=== PATIENT | male | born 1940 | race Caucasian/White ===

== ENCOUNTER 2020-07-18 09:58 | Outpatient (RCR) | payer MEDICARE, SELFPAY | END 2020-10-09 15:03 | disposition home or self-care (01) | LOC: HO.WCC 09:58 | PROVIDERS: PCP Family Medicine; Visit Provider Surgery | DX: S81.811A Laceration without foreign body, right lower leg, initial encounter (principal); E11.51 Type 2 diabetes mellitus with diabetic peripheral angiopathy without gangrene; I70.209 Unspecified atherosclerosis of native arteries of extremities, unspecified extremity; I25.810 Atherosclerosis of coronary artery bypass graft(s) without angina pectoris; I71.2 Thoracic aortic aneurysm, without rupture; Z79.82 Long term (current) use of aspirin; Z79.899 Other long term (current) drug therapy | CPT/HCPCS: 11042; 17250; 99212 ==

== ENCOUNTER 2020-07-18 11:02 | Outpatient (REF) | payer MEDICARE, SELFPAY ==
--- NOTE | 2020-07-18 12:43 | MHC.AU.P13 ---
Hearing Aid Evaluation- Binaural Date of Visit: 07/18/20 Description of Hearing: Moderate to severe sensorineural hearing loss in the right ear. Moderately-severe to profound sensorineural hearing loss in the left ear. Summary: Patient was recently seen by Ear, Nose, and Throat. The white object that was discovered in his left ear at his last audio was removed. Hearing aid options discussed. Impressions taken bilaterally for custom Slim Tips. Slight irritation noted in left canal after impression. Hearing Instrument Selection: Right Ear: V Belt Curer: [employer] Model: Audax Medicaleo M70-R Battery Size: Rechargeable Color: P1 Media Buyer: 1M Type of Mold: Phonak SlimTip Left Ear: V Belt Curer: Phonak Model: Audeo M70-R Battery Size: Rechargeable Color: P1 Media Buyer: 1M Type of Mold: Phonak SlimTip Recommendations: Recommendations: Fitting will be scheduled when all materials have arrived. Prior authorization will be sent to patient's insurance. Diagnosis Code(s): Primary Diagnosis: H90.3 Bilateral Sensorineural Hearing Loss Services Performed: Hearing Aid Evaluation and Earmold: Hearing Aid Evaluation- Binaural Signature: Student/Clinical Fellow: No I have reviewed/agreed with student/fellow documentation: N/A Provider: Jin Hall CCC-A
--- NOTE | 2020-07-23 09:11 | MHC.AU.MED ---
Medical Clearance for Hearing Instrumentation Date: 07/23/20 Patient Name: Bi Hall Date of : 1940 Dear Adriane Higuera MD, We have seen your patient on 07/18/2020 and have determined that they are a candidate for amplification (See accompanying report). Specifically, they would benefit from: Hearing aid use in both ears There is a statute that addresses Medical Evaluation Requirements prior to fitting a patient with a hearing aid. According to [place] statute 265 CMR:6.03(1), (a) General. Except as provided in 265 CMR 6.03(1)(b), a hearing therapy teacher shall not sell a hearing aid unless the prospective user has presented to the hearing therapy teacher a written statement signed by a licensed physician that states that the patient's hearing loss has been medically evaluated and the patient may be considered a candidate for a hearing aid. The medical evaluation must have taken place within the preceding six months. Please note: Due to the [place] Statute referenced above, we cannot accept a signature other than that of a licensed physician. CHARGEBACK SPECIALIST and PA signatures cannot be accepted. I am in agreement with the above recommendation. There is no medical contraindication for hearing instrumentation. Physician Signature Date Physician Name (Printed)
== END 2020-07-18 11:03 | disposition home or self-care (01) ==
LOC: HO.HAP 11:02
PROVIDERS: PCP Family Medicine; Visit Provider Family Medicine
DX: Z46.1 Encounter for fitting and adjustment of hearing aid (principal)
CPT/HCPCS: 92591; V5275

== ENCOUNTER → 2020-08-15 10:00 | Outpatient (BNVA) | payer MEDICARE, SELFPAY | PROVIDERS: PCP Nurse Practitioner Family; Referring Provider Nurse Practitioner Family; Visit Provider Internal Medicine Gastroenterology | DX: R13.10 Dysphagia, unspecified (principal); I21.9 Acute myocardial infarction, unspecified; Z95.1 Presence of aortocoronary bypass graft; Z95.2 Presence of prosthetic heart valve | CPT/HCPCS: 99202 ==

== ENCOUNTER 2020-08-28 08:12 | Outpatient (REF) | payer MEDICARE, SELFPAY ==
--- NOTE | 2020-08-28 08:18 | FL_ITS ---
EXAMINATION: FL BARIUM SWALLOW CLINICAL INFORMATION: Dysphagia COMPARISON: None TECHNIQUE: Barium swallow examination is performed using fluoroscopic evaluation in addition to multiple fluoroscopic spot views. The patient is imaged both upright and prone and using both thick and thin sulfate along with effervescent granules. A 13 mm barium tablet utilized. Fluoroscopy time: 1.8 minutes DAP: 34.078 Gycm2 Images: 121 FINDINGS: There is normal oral bolus control and transfer. Normal posterior tilt of the epiglottis with elevation of the hyoid. No cricopharyngeal abnormality. The esophagus was normal in course, caliber, and contour. Questionable mild narrowing at the gastroesophageal junction resulting in delayed passage of the barium tablet. There was otherwise normal distensibility with no fixed segment of narrowing. No focal mucosal abnormality was identified. A 13 mm barium tablet was swallowed without difficulty. This took a normal course to the distal esophagus, with delayed passage at the gastroesophageal junction throughout the study. Moderate esophageal dysmotility was observed. Contrast passed freely across the gastroesophageal junction into the stomach. Small hiatal hernia. No gastroesophageal reflux was observed. FL/FL barium swallow IMPRESSION: Moderate esophageal dysmotility with small hiatal hernia. Delayed passage of the 13 mm barium tablet at the gastroesophageal junction suggests there may be mild focal narrowing.
== END 2020-08-28 08:13 | disposition home or self-care (01) ==
LOC: HO.XRAY 08:12
PROVIDERS: PCP Family Medicine; Visit Provider Internal Medicine Gastroenterology
DX: R13.10 Dysphagia, unspecified (principal)
CPT/HCPCS: 74220

== ENCOUNTER 2020-09-03 14:20 | Outpatient (REF) | payer MEDICARE, SELFPAY ==
--- NOTE | 2020-09-08 11:33 | MHC.AU.P13 ---
Hearing Instrument Fitting- Adult- Binaural Date of Visit: 09/03/20 Hearing Instruments Dispensed: Right Ear: Kitchen Work Supervisor: Phonak Model: Audeo M70-R Serial Number: [id number] Warranty: 11/15/2023 Battery Size: Rechargeable Color: P1 Physical Education Specialist: 1M Type of Mold: Phonak SlimTip #[id number] DEEPIKA EXP 12/17/2020 Type of Wax Guard: CERUSTOP Left Ear: Kitchen Work Supervisor: Phonak Model: Audeo M70-R Serial Number: [id number] Warranty: 11/15/2023 Battery Size: Rechargeable Color: P1 Physical Education Specialist: 1M Type of Mold: Phonak SlimTip #[id number] Type of Wax Guard: CERUSTOP Summary of Fitting: Feedback applications engineering manager was performed. Verifit performed and levels adjusted to better reach targets. Patient felt 100% was too loud. Lowered to 90% target. Patient was pleased with the hearing aids. He reported they were comfortable and clear. Hearing aid care and maintenance discussed and practiced. Hearing aids were not paired to the patient's phone, as his caregiver felt it would be too much for him to handle at this time. Recommendations: A hearing aid follow-up was not scheduled at this time, as patient's caregiver would like to minimize his visits outside the house due to the COVID-19 pandemic. If they feel additional adjustments are needed, or if they have any questions, they will call our office. Diagnosis Code(s): Primary Diagnosis: H90.3 Bilateral Sensorineural Hearing Loss Signature: Provider: Jin Hall, JULIUS-A
== END 2020-09-03 14:21 | disposition home or self-care (01) ==
LOC: HO.HAP 14:20
PROVIDERS: PCP Nurse Practitioner Family; Referring Provider Family Medicine; Visit Provider Nurse Practitioner Family
DX: Z46.1 Encounter for fitting and adjustment of hearing aid (principal); H90.3 Sensorineural hearing loss, bilateral
CPT/HCPCS: V5011; V5020; V5160; V5261; V5264

== ENCOUNTER 2021-01-01 11:15 | Outpatient (REF) | payer MEDICARE, SELFPAY ==
[2021-01-01 12:23] LABS: MANUAL DIFF FLAG NO
[2021-01-01 12:34] LABS: Basophils Percent Auto 0.3 % (0-2); Eosinophils Absolute Auto 0.3 X10*3/uL (0.0-0.4); Eosinophils Percent Auto 4.4 % (0-4); Hematocrit 27.2 % (42-52); Hemoglobin 7.9 g/dl (14.0-18.0); Imm Gran Abs Auto 0.03 X10*3/uL (0.00-0.03); Imm Gran Pct Auto 0.5 % (0.0-0.4); Lymphocytes Absolute Auto 2.1 X10*3/uL (1.2-4.9); Lymphocytes Percent Auto 34.9 % (20-40); Mean Corpuscular Hemoglobin 28.2 pg (27.0-33.0); Mean Corpuscular Volume 97.1 fL (80-98); Monocytes Absolute Auto 0.4 X10*3/uL (0.1-1.2); Monocytes Percent Auto 6.3 % (2-11); Neutrophils Absolute Auto 3.2 X10*3/uL (2.0-8.3); Neutrophils Percent Auto 53.6 % (45-73); Platelet Count 102 X10*3/uL (160-400); Red Cell Distribution Width 16.2 % (11.0-16.0); White Blood Count 5.9 X10*3/uL (4.8-10.8)
[2021-01-01 12:59] LABS: Iron 64 mcg/dL (45-160); Percent Iron Saturation 34 % (15-50); Total Iron Binding Capacity 186 mcg/dL (228-428); Unsaturated Iron Binding 122 ug/dL
[2021-01-01 14:09] LABS: Anion Gap 17 (12-20); Blood Urea Nitrogen 76 mg/dL (9-16); Calcium 7.2 mg/dL (8.4-10.2); Carbon Dioxide 17 mmol/L (22-29); Chloride 120 mmol/L (96-108); Estimated Glomerular Filt Rate 10; Potassium 5.6 mmol/L (3.3-5.1); Sodium 148 mmol/L (135-145)
== END 2021-01-01 11:16 | disposition home or self-care (01) ==
LOC: HO.LAB 11:15
PROVIDERS: PCP Family Medicine; Visit Provider Internal Medicine Hypertension Specialist
DX: N18.5 Chronic kidney disease, stage 5 (principal)
CPT/HCPCS: 36415; 80051; 82310; 82565; 83540; 84520; 85025

== ENCOUNTER 2021-01-05 07:32 | Day surgery (SDC) | payer MEDICARE, SELFPAY ==
[2020-12-30 13:17] VITALS: BMI 35.2
--- NOTE | 2020-12-31 13:37 | HO.ANESPROP2 ---
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 per renal note PMFSH Active Problems Active Problems: All Active Problems (Updated 12/30/20 @ 13:22 by Blossom Ramírez) Dysphagia (Acute) Past Medical History Medical History (Updated 12/31/20 @ 13:42 by Kerri Fuller) COPD (chronic obstructive pulmonary disease) COVID-19 vaccine administered Elevated cholesterol GERD (gastroesophageal reflux disease) Heart attack HTN (hypertension) Prostate CA PVD (peripheral vascular disease) Renal failure Thyroid disease Surgical History Surgical History (Updated 12/30/20 @ 12:47 by Blossom Ramírez) H/O colonoscopy History of incision and drainage Hx of aortic valve replacement Hx of CABG Hx of cataract surgery Hx of cystoscopy Social History Social History Are you a primary adult live in caregiver to a significant other at home: No Do you presently have visiting nurse or other home services: No Smoking Status: Former smoker Smoking Quit Date: 2000 Use of substances other than those prescribed or required for medical reasons: No Have you been hit, kicked, punched, or otherwise hurt by someone within the past year? If so, by whom?: No Advance Directives Information Provided: No Recently lost weight without trying: No Meds Allergies Allergy/AdvReac Type Severity Reaction Status Date / Time No Known Allergies Allergy Mild NONE Unverified 06/26/20 16:39 Home Medications Medication Instructions Recorded Confirmed Last Taken Type allopurinol 100 mg PO DAILY 12/30/20 12/30/20 Unknown History amlodipine 2.5 mg PO DAILY 12/30/20 12/30/20 01/05/21 History aspirin 81 mg PO DAILY 12/30/20 12/30/20 Unknown History atorvastatin 80 mg PO DAILY 12/30/20 12/30/20 Unknown History cholecalciferol (vitamin D3) 25 mcg PO DAILY 12/30/20 12/30/20 Unknown History [Vitamin D3] clonidine HCl 0.2 mg PO BEDTIME 12/30/20 12/30/20 Unknown History cyanocobalamin (vitamin B-12) 100 mcg PO DAILY 12/30/20 12/30/20 Unknown History [Vitamin B-12] levothyroxine 50 mcg PO DAILY 12/30/20 12/30/20 01/05/21 History loratadine [Claritin] 10 mg PO DAILY PRN 12/30/20 12/30/20 Unknown History metoprolol succinate 100 mg PO BID 12/30/20 12/30/20 01/05/21 History omeprazole 20 mg PO DAILY 12/30/20 12/30/20 Unknown History Exam Exam Date and Time: December 31, 2020 1337 Height,Weight and Vital Signs: Height 5 ft 9 in Weight 108.409 kg Pertinent Lab Results Pertinent Lab Results: 12/10/20 Na 144 K 5.2 Cl 112 (H) CO2 24 BUN 84 (H) Creat 5.3 (H) WBC 7.3 Hgb 9.4 (L) Hct 29.1 (L) 141 Narrative Narrative: EKG 12/2019 NSR @ [address] abn ECHO 07/2020 1. Nml LV function 2. LV systolic function normal with EF 60-65% 3. Gr 1 DD with an impaired relaxation filling pattern. Normal LA pressures. 4. Normally functioning aortic bioprosthetic tissue valve. 5. Mild Tricuspid regurg 6. Mild to mod pulm htn 7. Compared with findings of the prior report (04/2019), pulm htn increased. Assessment and Plan Assessment Anesthesia Assessment: Chart Reviewed Documented by User: Rachele Anti 01/05/21 08:51 [facility] Past Medical History Medical History (Updated 12/31/20 @ 13:42 by Kerri Fuller) COPD (chronic obstructive pulmonary disease) COVID-19 vaccine administered Elevated cholesterol GERD (gastroesophageal reflux disease) Heart attack HTN (hypertension) Prostate CA PVD (peripheral vascular disease) Renal failure Thyroid disease Surgical History Surgical History (Updated 12/30/20 @ 12:47 by Blossom Ramírez) H/O colonoscopy History of incision and drainage Hx of aortic valve replacement Hx of CABG Hx of cataract surgery Hx of cystoscopy Social History Social History Are you a primary adult live in caregiver to a significant other at home: No Do you presently have visiting nurse or other home services: No Smoking Status: Former smoker Smoking Quit Date: 2000 Use of substances other than those prescribed or required for medical reasons: No Have you been hit, kicked, punched, or otherwise hurt by someone within the past year? If so, by whom?: No Advance Directives Information Provided: No Recently lost weight without trying: No Meds Allergies Allergy/AdvReac Type Severity Reaction Status Date / Time No Known Allergies Allergy Mild NONE Unverified 06/26/20 16:39 Home Medications Medication Instructions Recorded Confirmed Last Taken Type allopurinol 100 mg PO DAILY 12/30/20 12/30/20 Unknown History amlodipine 2.5 mg PO DAILY 12/30/20 12/30/20 01/05/21 History aspirin 81 mg PO DAILY 12/30/20 12/30/20 Unknown History atorvastatin 80 mg PO DAILY 12/30/20 12/30/20 Unknown History cholecalciferol (vitamin D3) 25 mcg PO DAILY 12/30/20 12/30/20 Unknown History [Vitamin D3] clonidine HCl 0.2 mg PO BEDTIME 12/30/20 12/30/20 Unknown History cyanocobalamin (vitamin B-12) 100 mcg PO DAILY 12/30/20 12/30/20 Unknown History [Vitamin B-12] levothyroxine 50 mcg PO DAILY 12/30/20 12/30/20 01/05/21 History loratadine [Claritin] 10 mg PO DAILY PRN 12/30/20 12/30/20 Unknown History metoprolol succinate 100 mg PO BID 12/30/20 12/30/20 01/05/21 History omeprazole 20 mg PO DAILY 12/30/20 12/30/20 Unknown History Exam Airway Mallampati Class: II TM Dist: >3cm Neck ROM: Limited Denture: Upper and Lower Loose/Missing/Broken Teeth: Yes, Upper and Lower Heart: RRR Lungs: CTA Assessment and Plan Assessment Anesthesia Assessment: Anesthesia Plan Discussed and Chart Reviewed Final Anesthetic Review NPO: Yes ASA Class: III Final Preanesthetic Review: Meds/Allgs Chart Reviewed, Consent Obtained/Reviewed and Anes Risks/Benef Reviewed Patient Risk: Intermediate Procedure Risk: Intermediate Anesthetic Plan Anesthetic Plan: MAC: Disposition: Standard PACU
[2021-01-05 08:35] VITALS: BP 188/101; PULSE 67; RESP 18; TEMP 36.4; O2SAT 97
--- NOTE | 2021-01-05 08:41 | PC.NURSE ---
pt old cva 1999with left sided weakness uses walker sob with exertion
--- NOTE | 2021-01-05 08:53 | MHC.SHP ---
Pre-Procedural Eval Section B Chief Complaint: dysphagia Relevant Family History (Specify if Yes): No Relevant Social History: None Present Medications: see Short Stay Collaborative assessment Medical History: Significant History (COPD (chronic obstructive pulmonary disease) COVID-19 vaccine administered Elevated cholesterol GERD (gastroesophageal reflux disease) Heart attack HTN (hypertension) Prostate CA PVD (peripheral vascular disease) Renal failure Thyroid disease) History of Previous Operations: Relevant previous surgery/procedure and date(s) (H/O colonoscopy History of incision and drainage Hx of aortic valve replacement Hx of CABG Hx of cataract surgery Hx of cystoscopy) Allergies: Allergies Allergy/AdvReac Type Severity Reaction Status Date / Time No Known Allergies Allergy Mild NONE Unverified 06/26/20 16:39 Review of Systems Sugical H&P ROS: Negative: Constitution, Cardiovascular, Respiratory, Neurological, Psychiatric, Hem-Onc, Allergic/Immunologic, Gastrointestinal, Genitourinary, Musculoskeletal, Integumentary, Endocrine and Eyes/Ears/Nose/Throat Exam Surgical H&P Exam: Normal: HEENT, Normal: Heart, Normal: Lungs, Normal: Extremities, Normal: Abdomen, Normal: Skin and Normal: Neurological Plan Diagnosis/Plan: Unchanged I have reviewed the history and physical and performed a pertinent physical examination on my patient. No changes have occurred unless specified.
[2021-01-05] MEDS: 0.9 % Sodium Chloride 1,000 ML 50 ML IVCONT (09:03)
--- NOTE | 2021-01-05 09:07 | PM.OP ---
Brief Operative Note Date of Service: 01/05/21 Pre-op diagnosis: dysphagia Post-op diagnosis: same Procedure: see op note Surgeon: Manuel Tafoya MD Anesthesia: MAC Estimated blood loss (mL): 0 Condition: stable Disposition: PACU
--- NOTE | 2021-01-05 09:08 | W.PM.OPN ---
Operative Note Operative Note Date of Service: 01/05/21 Narrative: Procedure Description: EGD FLEXIBLE TRANSORAL UPPER GASTROINTESTINAL ENDOSCOPY UPPER ENDOSCOPY Consent: Indications for the procedure and potential complications of bleeding, perforation, reaction to medications and missed diagnosis were discussed with the patient and informed consent was obtained. Instrument: Olympus GIF H 190 J mid size upper endoscope Monitoring: Vital signs and clinical assessment, continuous EKG monitoring, Pulse oximetry, Carbon Dioxide monitoring and blood pressure monitoring were done throughout the procedure. Procedure: The patient was placed in the left lateral decubitis position and pre-procedure medications were administered and a bite block was placed. The endoscope was inserted into the mouth and advanced under direct vision to the third part of duodenum. A careful inspection was made as the upper endoscope was withdrawn including a retroflexed examination of the proximal stomach; Findings and interventions are described below. Findings: Larynx:normal Esophagus: GE junction at 40 cm, diaphragm hiatus at 40 cm, bx taken from GEj and random esophagus, balloon dilation done to 20 mm at GEJ no tear seen, also UES dilated to 18 mm. Stomach: one patch of gastric erythema with some dark material probable pill gastritis from iron. Biopsies were obtained. Grade 2 flap valve on retroflexed examination of the cardia. There appeared to be paucity of gastric movement. Duodenum: bulbar duodenitis, pigmentation noted again likely from iron treatment if taking Intervention: Biopsies as noted above, balloon dilation Impression/Findings: pill gastritis duodenitis melanosis duodeni possible gastroparesis PLAN: regular diet as tolerated consider changing to liquid iron or IV formulation or using carafate if ongoign sx then GES to check for gastroparesis
[2021-01-05 09:29] VITALS: BP 119/54; PULSE 59; RESP 16; TEMP 36.2; O2SAT 93
[2021-01-05 09:44] VITALS: BP 120/66; PULSE 61; RESP 20; O2SAT 99
[2021-01-05 09:59] VITALS: BP 113/71; PULSE 57; RESP 16; O2SAT 94
[2021-01-05 10:14] VITALS: BP 130/56; PULSE 53; RESP 18; O2SAT 97
[2021-01-05 10:27] VITALS: BP 137/82; PULSE 60; RESP 18; O2SAT 97
== END 2021-01-05 11:10 | disposition home or self-care (01) ==
PROVIDERS: PCP Family Medicine; Visit Provider Internal Medicine Gastroenterology
PROC: 0DJ08ZZ Inspection of Upper Intestinal Tract, Via Natural or Artificial Opening Endoscopic (ICD-10-PCS; CPT 43235; principal; 2021-01-05 13:30)
DX: K22.2 Esophageal obstruction (principal); K29.80 Duodenitis without bleeding; K29.60 Other gastritis without bleeding; K44.9 Diaphragmatic hernia without obstruction or gangrene; K63.89 Other specified diseases of intestine; K21.9 Gastro-esophageal reflux disease without esophagitis; J44.9 Chronic obstructive pulmonary disease, unspecified; I13.10 Hypertensive heart and chronic kidney disease without heart failure, with stage 1 through stage 4 chronic kidney disease, or unspecified chronic kidney disease; N18.9 Chronic kidney disease, unspecified; I25.2 Old myocardial infarction; Z95.2 Presence of prosthetic heart valve; Z79.899 Other long term (current) drug therapy
CPT/HCPCS: 43249; 43239; 88305; 88342; C1726

== ENCOUNTER 2021-01-12 16:55 | Inpatient (IN) | payer MEDICARE, SELFPAY ==
--- NOTE | ~2021-01-12 | IR_ITS ---
EXAMINATION: X-ray IR ultrasound guide venous access See permacath report from the same day.
--- NOTE | ~2021-01-12 | XR_ITS ---
EXAMINATION: XR CHEST CLINICAL INFORMATION: Altered mental status COMPARISON: Chest x-ray 12/22/2019 TECHNIQUE: Frontal view of the chest was obtained. FINDINGS: Cardiac silhouette remains at the upper limits of normal in size. Ectatic thoracic aorta again noted. Patient is status post valvular replacement. The lungs are mildly hyperinflated. No lobar consolidation. No pleural effusion or pneumothorax. Old healed rib fractures. XR/XR chest 1V IMPRESSION: Stable examination demonstrating no acute pulmonary pathology.
--- NOTE | ~2021-01-12 | IR_ITS ---
PROCEDURE: IR INSERTION OF TUNNEL CATHETER CLINICAL INFORMATION: Renal failure. COMPARISON: None TECHNIQUE: Procedure and risks and benefits including bleeding, infection and pneumothorax were discussed with the patient through an court usher and informed consent was obtained. The right neck and chest were prepped and draped in usual sterile fashion. All elements of maximal sterile barrier technique followed including use of cap, mask, sterile gown, sterile gloves, a sterile full body drape and hand hygiene. Also followed skin preparation with 2% chlorhexidine for cutaneous antisepsis, and sterile ultrasound preparation with sterile gel and probe cover when applicable. The skin and soft tissues of the right lower neck were anesthetized with 1% lidocaine plain. A small incision was made. Using ultrasound guidance and a 5 Peruvian micropuncture system, right internal jugular vein access was obtained. Over a 0.18 wire, a 5 [place]uvian dilator was positioned in the SVC. The skin and soft tissues of the right anterior chest were anesthetized with 1% lidocaine plain. A small incision was made. A subcutaneous tunnel from the chest to the neck incision was anesthetized with 1% lidocaine plain. Using a tunneler, a 14.5 [place]uvian 23 cm in length Palindrome permacath was tunneled from the chest to the neck incision. A 0.35 guidewire was advanced through the 5 Peruvian dilator into the IVC. Following serial dilatation and through a peel-away sheath, permacath was advanced centrally into the chest. The next incision was closed using a 3-0 absorbable subcuticular suture. The chest incision was closed using a 3-0 absorbable mattress suture. Both ports flushed well, had good blood return and were instilled with 1.9 mL heparin 1000 unit per mL solution. Real-time ultrasound guidance was used to document vein patency and for needle entry. A formal ultrasound picture was recorded. The patient received Versed 0.5 mg and fentanyl 25 mcg intravenously during the procedure. Total sedation time: 18 minutes. Fluoroscopy time: 29 seconds. DAP: 82 cGy/cm2 FINDINGS: There is a right internal jugular permacath with tip projecting over the cavoatrial junction. IR/IR cvc insert central tunnel IMPRESSION: Right internal jugular 14.5 Peruvian 23 cm in length Palindrome permacath placement.
[2021-01-12 17:13] VITALS: BP 140/92; PULSE 60; O2SAT 98
[2021-01-12 17:30] VITALS: BMI 31.4
--- NOTE | 2021-01-12 17:36 | ED.AMS ---
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, but patient has been refusing to go for dialysis MD complaint: confusion Onset (ago): week(s) Severity: moderate Related Data Home Medications Medication Instructions Recorded Confirmed allopurinol 100 mg PO DAILY 12/30/20 12/30/20 amlodipine 2.5 mg PO DAILY 12/30/20 12/30/20 aspirin 81 mg PO DAILY 12/30/20 12/30/20 atorvastatin 80 mg PO DAILY 12/30/20 12/30/20 cholecalciferol (vitamin D3) 25 mcg PO DAILY 12/30/20 12/30/20 [Vitamin D3] clonidine HCl 0.2 mg PO BEDTIME 12/30/20 12/30/20 cyanocobalamin (vitamin B-12) 100 mcg PO DAILY 12/30/20 12/30/20 [Vitamin B-12] levothyroxine 50 mcg PO DAILY 12/30/20 12/30/20 loratadine [Claritin] 10 mg PO DAILY PRN 12/30/20 12/30/20 metoprolol succinate 100 mg PO BID 12/30/20 12/30/20 omeprazole 20 mg PO DAILY 12/30/20 12/30/20 Allergies Allergy/AdvReac Type Severity Reaction Status Date / Time No Known Allergies Allergy Mild NONE Unverified 06/26/20 16:39 Review of Systems Review of Systems: Constitutional : No Weight loss, No Fever, No Chills ENT/Mouth : No sore throat, No Rhinorrhea Eyes: No Eye Pain, No Swelling Cardiovascular : No Chest Pain, no palpitations Respiratory : No Cough, No Sputum, ++ shortness of breath Gastrointestinal : no Nausea, No Vomiting, No Diarrhea, No abdominal Pain, no black stools Genitourinary : No Dysuria, No Urinary Frequency Musculoskeletal : No joint pain, No Myalgias, No Joint Swelling Skin : No Skin Lesions, No rash Neuro : No Weakness, No Numbness, No Dizziness, No Headache Psych : No Anxiety/Panic, No Depression Heme/Lymph: No Bruising, No Lymphadenopathy Endocrine : No Polyuria, No Polydipsia All other systems reviewed and are negative [facility] Past Medical History Medical History COPD (chronic obstructive pulmonary disease) COVID-19 vaccine administered Elevated cholesterol GERD (gastroesophageal reflux disease) Heart attack HTN (hypertension) Prostate CA PVD (peripheral vascular disease) Renal failure Thyroid disease Surgical History H/O colonoscopy History of incision and drainage Hx of aortic valve replacement Hx of CABG Hx of cataract surgery Hx of cystoscopy Social History Social History Alcohol intake: never Smoking Status: Never smoker Use of substances other than those prescribed or required for medical reasons: No Advance Directives: No Advance Directives Information Provided: Yes Physical Exam Vital Signs: Vital Signs: Last Vital Signs Temp 98.2 F 01/12/21 20:02 Pulse 60 01/12/21 20:02 Resp 18 01/12/21 20:02 BP 143/73 H 01/12/21 20:02 Pulse Ox 94 01/12/21 20:02 Body Mass Index 31.4 Const: General: no acute distress and well developed Nutritional Appearance: obese Orientation/consciousness: patient oriented x3 HENMT: Head: Yes normal to inspection Ears: hearing grossly normal bilaterally General nose exam: Normal external nose present Mouth: Normal oral and palatal mucosa present Eyes: General: appearance normal, both eyes and all related structures Conjunctivae: conjunctival abnormal (Pallor++) Neck: Neck: Yes normal visual inspection and Yes no JVD Chest: Chest palpation & inspection: normal inspection of the chest Resp: Effort & Inspection: normal respiratory effort Auscultation: crackles bilateral, rales, no rhonchi and no wheezes Cardio: Jugular venous distension: no JVD Palpation: normal PMI Rate: regular rate Rhythm: regular rhythm Heart sounds: S1 normal heart sound present, S2 normal heart sound present and Clicking heart sound present Peripheral pulses: Peripheral pulses 2+ throughout GI: Inspection: Yes normal to inspection Palpation (GI): Soft to palpation and nontender Auscultation: normal bowel sounds : General: Yes no CVA tenderness Back/Spine/Pelvis: Back: no CVA tenderness Thoracic/Lumbar Spine: thoracic and lumbar spine normal to inspection Skin: General skin exam: no rashes or lesions noted Neuro: General: patient oriented x3, gait normal, moves all extremities, no focal motor deficits and CN's II-XI intact bilaterally Extrem: General: Yes full ROM, Yes no calf tenderness, Yes normal gait and Yes pedal edema (4+) Psych: Appearance: grossly normal Mental Status: mental status grossly normal Affect: normal affect Attitude: cooperative Thought process: Normal thought process present Thought content: Normal thought content present Insight: Good insight present (Psych) Judgement: Good judgement present (Psych) MDM - Altered Mental Status MDM Narrative Medical decision making narrative: Patient with chronic renal failure stage 5 with uremic features with increasing confusion and worsening of creatinine and elevated potassium 6.6 creatinine of 6.[address] 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 Will also give her p.o. Kayexalate, IV calcium gluconate, IV sodium bicarb and IV insulin with dextrose Differential Diagnosis Differential diagnosis: Likely encephalopathy Medical Records Attestation: I reviewed the patient's medical records. Lab Data Attestation: I reviewed the patient's lab results. Result diagrams: 01/12/21 18:52 01/12/21 18:52 Labs: Lab Results 01/12/21 01/12/21 01/12/21 Range/Units 18:52 18:52 18:52 WBC 5.7 (4.8-10.8) X10*3/uL RBC 2.85 L (4.60-5.80) X10*6/uL Hgb 8.2 L (14.0-18.0) g/dl Hct 28.2 L (42-52) % MCV 98.9 H (80-98) fL MCH 28.8 (27.0-33.0) pg MCHC 29.1 L (31.0-36.0) g/dl RDW 16.7 H (11.0-16.0) % Plt Count 86 L (160-400) X10*3/uL MPV Not Reportable Immature Gran % (Auto) 0.5 H (0.0-0.4) % Neut % (Auto) 55.1 (45-73) % Lymph % (Auto) 32.3 (20-40) % Douglas % (Auto) 8.3 (2-11) % Eos % (Auto) 3.3 (0-4) % Baso % (Auto) 0.5 (0-2) % Lymph # (Auto) 1.8 (1.2-4.9) X10*3/uL [place] # (Auto) 0.5 (0.1-1.2) X10*3/uL Eos # (Auto) 0.2 (0.0-0.4) X10*3/uL Baso # (Auto) 0.0 (0.0-0.2) X10*3/uL Abs Immat Gran (auto) 0.03 (0.00-0.03) X10*3/uL Absolute Neuts (auto) 3.1 (2.0-8.3) X10*3/uL Absolute Nucleated RBC 0.000 (0.0-0.012) X10*3/uL Nucleated RBC % (auto) 0.0 (0.0-0.2) /100WBC Smear Tech's Comments VERIFIED PT 15.8 H (10.8-13.0) SEC INR 1.3 H (0.9-1.1) APTT 35.5 (24.1-38.0) SEC Sodium 145 (135-145) mmol/L Potassium 6.6 H* (3.3-5.1) mmol/L Chloride 117 H (96-108) mmol/L Carbon Dioxide 21 L (22-29) mmol/L Anion Gap 14 (12-20) BUN 107 H* D (9-16) mg/dL Creatinine 6.60 H* (0.5-1.4) mg/dL Estim Creat Clear Calc 10.0 Estimated GFR 8 Random Glucose 117 H (60-115) mg/dL Calcium 7.3 L (8.4-10.2) mg/dL Total Bilirubin 0.5 (0.0-1.0) mg/dL Direct Bilirubin 0.2 (0.0-0.5) mg/dL AST 14 (5-37) U/L ALT 18 (0-40) U/L Alkaline Phosphatase 144 H (39-117) U/L Total Protein 6.7 (6.5-8.0) g/dL Albumin 3.7 (3.5-5.0) g/dL Urine Color Urine Appearance Urine pH (5.0-8.0) Ur Specific Baker (1.005-1.025) Urine Protein (NEG-TRACE) MG/DL Urine Glucose (UA) (NEG) MG/DL Urine Ketones (NEG) MG/DL Urine Blood (NEG) Urine Nitrite (NEG) Ur Leukocyte Esterase (NEG) Urine RBC (0) /HPF Urine WBC (0-4) /HPF Ur Squamous Epith Cells /LPF Urine Bacteria /LPF Urine Mucus /LPF COVID-19 ([facility]) (Negative) COVID-19 Clin Com 01/12/21 01/12/21 Range/Units 18:52 20:59 WBC (4.8-10.8) X10*3/uL RBC (4.60-5.80) X10*6/uL Hgb (14.0-18.0) g/dl Hct (42-52) % MCV (80-98) fL MCH (27.0-33.0) pg MCHC (31.0-36.0) g/dl RDW (11.0-16.0) % Plt Count (160-400) X10*3/uL MPV Immature Gran % (Auto) (0.0-0.4) % Neut % (Auto) (45-73) % Lymph % (Auto) (20-40) % [place] % (Auto) (2-11) % Eos % (Auto) (0-4) % Baso % (Auto) (0-2) % Lymph # (Auto) (1.2-4.9) X10*3/uL [place] # (Auto) (0.1-1.2) X10*3/uL Eos # (Auto) (0.0-0.4) X10*3/uL Baso # (Auto) (0.0-0.2) X10*3/uL Abs Immat Gran (auto) (0.00-0.03) X10*3/uL Absolute Neuts (auto) (2.0-8.3) X10*3/uL Absolute Nucleated RBC (0.0-0.012) X10*3/uL Nucleated RBC % (auto) (0.0-0.2) /100WBC Smear Tech's Comments PT (10.8-13.0) SEC INR (0.9-1.1) APTT (24.1-38.0) SEC Sodium (135-145) mmol/L Potassium (3.3-5.1) mmol/L Chloride (96-108) mmol/L Carbon Dioxide (22-29) mmol/L Anion Gap (12-20) BUN (9-16) mg/dL Creatinine (0.5-1.4) mg/dL Estim Creat Clear Calc Estimated GFR Random Glucose (60-115) mg/dL Calcium (8.4-10.2) mg/dL Total Bilirubin (0.0-1.0) mg/dL Direct Bilirubin (0.0-0.5) mg/dL AST (5-37) U/L ALT (0-40) U/L Alkaline Phosphatase (39-117) U/L Total Protein (6.5-8.0) g/dL Albumin (3.5-5.0) g/dL Urine Color YELLOW Urine Appearance CLEAR Urine pH 5.0 (5.0-8.0) Ur Specific Baker 1.020 (1.005-1.025) Urine Protein 2+ H (NEG-TRACE) MG/DL Urine Glucose (UA) NEG (NEG) MG/DL Urine Ketones NEG (NEG) MG/DL Urine Blood 1+ H (NEG) Urine Nitrite NEG (NEG) Ur Leukocyte Esterase NEG (NEG) Urine RBC 0-2 (0) /HPF Urine WBC 0-2 (0-4) /HPF Ur Squamous Epith Cells TRACE /LPF Urine Bacteria TRACE /LPF Urine Mucus TRACE /LPF COVID-19 ([facility]) Negative (Negative) COVID-19 Clin Com See Note ECG Data ECG #1: Attestation: I personally reviewed and interpreted this ECG as follows: Interpretation: Sinus bradycardia with heart rate 52 beats per minute slightly tenting of T-waves in lateral leads. Poor progression of R-waves normal intervals no acute ischemia Discharge Plan Discharge Clinical Impression: Acute hyperkalemia Acute on chronic kidney failure Qualifiers: Acute renal failure type: unspecified Chronic kidney disease stage: stage 5, not on chronic dialysis Qualified Code(s): N17.9 - Acute kidney failure, unspecified Patient Disposition: Admitted As Inpatient
[2021-01-12 17:37] VITALS: BP 130/64; PULSE 56; RESP 18; TEMP 37.1; O2SAT 95
--- NOTE | 2021-01-12 17:46 | ECG_ITS ---
Test Reason : AMS Blood Pressure : / mmHG Vent. Rate : 052 BPM Atrial Rate : 052 BPM P-R Int : 196 ms QRS Dur : 078 ms QT Int : 450 ms P-R-T Axes : 036 078 080 degrees QTc Int : 418 ms Sinus bradycardia Possible Anterior infarct , age undetermined Abnormal ECG When compared with ECG of 22-DEC-2019 20:11, No significant change was found Referred By: Ney Cherry Electronically Signed By:ADOLPH LOPEZ MD
[2021-01-12] MEDS: Furosemide 100 MG/10 ML VIAL 60 MG IVPUSH (18:59)
--- NOTE | 2021-01-12 18:59 | PC.NURSE ---
iv inserted, labs drawn, pt medicated per order
[2021-01-12 19:00] LABS: Basophils Percent Auto 0.5 % (0-2); Eosinophils Absolute Auto 0.2 X10*3/uL (0.0-0.4); Eosinophils Percent Auto 3.3 % (0-4); Hematocrit 28.2 % (42-52); Hemoglobin 8.2 g/dl (14.0-18.0); Imm Gran Abs Auto 0.03 X10*3/uL (0.00-0.03); Imm Gran Pct Auto 0.5 % (0.0-0.4); Lymphocytes Absolute Auto 1.8 X10*3/uL (1.2-4.9); Lymphocytes Percent Auto 32.3 % (20-40); MANUAL DIFF FLAG SCAN; Mean Corpuscular HGB Conc 29.1 g/dl (31.0-36.0); Mean Corpuscular Hemoglobin 28.8 pg (27.0-33.0); Mean Corpuscular Volume 98.9 fL (80-98); Monocytes Absolute Auto 0.5 X10*3/uL (0.1-1.2); Monocytes Percent Auto 8.3 % (2-11); Neutrophils Absolute Auto 3.1 X10*3/uL (2.0-8.3); Neutrophils Percent Auto 55.1 % (45-73); Red Blood Count 2.85 X10*6/uL (4.60-5.80); Red Cell Distribution Width 16.7 % (11.0-16.0); SCAN SMEAR FLAG 1; White Blood Count 5.7 X10*3/uL (4.8-10.8)
[2021-01-12 19:05] LABS: PLT ABN DIST 1
[2021-01-12 19:10] LABS: INTERNATIONAL NORM RATIO 1.3 (0.9-1.1); Prothrombin Time 15.8 SEC (10.8-13.0)
[2021-01-12 19:13] LABS: Partial Thromboplastin Time 35.5 SEC (24.1-38.0)
[2021-01-12 19:14] LABS: COVID-19 Test Negative (Negative)
[2021-01-12 19:37] LABS: Alanine Aminotransferase 18 U/L (0-40); Albumin Level 3.7 g/dL (3.5-5.0); Alkaline Phosphatase 144 U/L (39-117); Anion Gap 14 (12-20); Aspartate Amino Transferase 14 U/L (5-37); Bilirubin Direct 0.2 mg/dL (0.0-0.5); Bilirubin Total 0.5 mg/dL (0.0-1.0); Blood Urea Nitrogen 107 mg/dL (9-16); Calcium 7.3 mg/dL (8.4-10.2); Carbon Dioxide 21 mmol/L (22-29); Chloride 117 mmol/L (96-108); Estimated Glomerular Filt Rate 8; Glucose Random 117 mg/dL (60-115); Potassium 6.6 mmol/L (3.3-5.1); Sodium 145 mmol/L (135-145); Total Protein 6.7 g/dL (6.5-8.0)
[2021-01-12 19:55] LABS: Platelet Count 86 X10*3/uL (160-400)
[2021-01-12 20:02] VITALS: BP 143/73; PULSE 60; RESP 18; TEMP 36.8; O2SAT 94
[2021-01-12 20:09] LABS: SLIDE REVIEW VERIFIED
[2021-01-12] MEDS: Calcium Gluconate/NaCl,Iso-Osm 2 GM/100 ML PLAST..BAG IV (21:16)
[2021-01-12] MEDS: Sodium Polystyrene Sulfon/Sorb 15 GM/60 ML ORAL.SUSP 30 GM PO (21:16)
[2021-01-12] MEDS: Sodium Bicarbonate 8.4% 50 MEQ/50 ML VIAL IVPUSH (21:17)
[2021-01-12] MEDS: Insulin Regular, Human 100 UNIT/ML 3 ML VIAL IVPUSH (21:17)
--- NOTE | 2021-01-12 21:34 | PC.NURSE ---
patient moved from river[facility] bed to room 22 for surveillance system monitor, monitor applied- nsr, vss, pt medicated per order, will continue to monitor.
[2021-01-12 21:47] LABS: Glucose Urine UA NEG (NEG); Leukocyte Esterase Urine NEG (NEG); Nitrite Urine NEG (NEG); Urine Blood 1+ (NEG); Urine Ketones NEG (NEG); Urine Protein 2+ MG/DL (NEG-TRACE)
[2021-01-12 21:50] LABS: Appearance Urine CLEAR; Color Urine YELLOW
[2021-01-12 22:41] LABS: Bacteria Urine TRACE /LPF; Mucus Urine TRACE /LPF; RBC Urine 0-2 /HPF (0); Squamous Epithelial Cell Urine TRACE /LPF; WBC Urine 0-2 /HPF (0-4)
--- NOTE | 2021-01-12 22:46 | PC.NURSE ---
home med location patients home med is located in a blister pack in the patients chart.
--- NOTE | 2021-01-12 23:04 | P.HPHOSP_ITS ---
History of Present Illness Date of Service: 01/12/21 Chief Complaint: confused This is an 80-year-old male with past medical history of diabetes, hypertension, CKD, COPD, GERD, HLD, prostate cancer, PVD, and hypothyroidism presents to the hospital sent from PCP for confusion, increased weakness. Patient is Wolof- speaking history is obtained with the help of lunchroom supervisor. Although patient is alert and awake, he is completely confused. Not oriented to place or time, not answering questions appropriately, following minimal commands. It appears that patient was seen by his PCP, had abnormal lab findings, inc reased confusion and therefore was sent to the hospital. Vitals on arrival short temp of 98.8?, heart rate of 56, respiratory rate of 18, blood pressure 130/64, satting 95% on room air. Labs are significant for WBC of 5.4, hemoglobin of 8.2, 15.8, platelets of 86, INR 1.3, a from sodium of 145, potassium of 6.6, chloride level 117, BUN of 107 baseline around 76, creatinine of 6.6 baseline around 4-5, UA positive for protein, and blood with no RBC, COVID negative. Chest x-ray was negative, Nephrology was contacted by ED physician, reported that patient had refused dialysis in the past but will see the patient in the morning. Pmhx per EMR Review of Systems Review of Systems: Yes all other systems are reviewed and are negative [facility] Medical History COPD (chronic obstructive pulmonary disease) COVID-19 vaccine administered Elevated cholesterol GERD (gastroesophageal reflux disease) Heart attack HTN (hypertension) Prostate CA PVD (peripheral vascular disease) Renal failure Thyroid disease Surgical History H/O colonoscopy History of incision and drainage Hx of aortic valve replacement Hx of CABG Hx of cataract surgery Hx of cystoscopy Social History Household Members: Spouse Housing: Apartment Alcohol intake: never Smoking Status: Never smoker Use of substances other than those prescribed or required for medical reasons: No Have you been hit, kicked, punched, or otherwise hurt by someone within the past year? If so, by whom?: No Do you feel safe in your current relationship?: No Is there a partner from a previous relationship who is making you feel unsafe now?: No Are you made to feel afraid or neglected: No Advance Directives: No Advance Directives Information Provided: Yes Do you have thoughts of harming others: None Do you have a plan to hurt others: No Plan Recently lost weight without trying: Unsure Meds Allergies Allergy/AdvReac Type Severity Reaction Status Date / Time No Known Allergies Allergy Mild NONE Unverified 06/26/20 16:39 Active Medications: Current Medications Generic Name Dose Route Start Last Admin Trade Name Freq PRN Reason Stop Dose Admin Acetaminophen 650 mg 01/12/21 21:59 Acetaminophen 325 Mg Tablet PO Q6H PRN Pain, Mild (Pain Scale 1-3) Docusate Sodium 100 mg 01/12/21 21:59 Docusate Sodium 100 Mg Capsule PO DAILY PRN Constipation Lactated Ringer's 1,000 mls @ 80 mls/hr 01/12/21 22:00 Lr IVCONT .[id number] [facility] Ondansetron HCl 4 mg 01/12/21 21:59 Ondansetron Hcl 4 Mg/2 Ml Vial IVPUSH Q8H PRN Nausea and Vomiting Sodium Chloride 3 ml 01/13/21 00:00 0.9 % Sodium Chloride Flush 3 Ml Syringe IVFLUSH QSHIFT [facility] Home Medications Medication Instructions Recorded Confirmed Last Taken Type allopurinol 100 mg PO DAILY 12/30/20 01/13/21 Unknown History amlodipine 2.5 mg PO DAILY 12/30/20 01/13/21 01/05/21 History aspirin 81 mg PO DAILY 12/30/20 01/13/21 Unknown History atorvastatin 80 mg PO DAILY 12/30/20 01/13/21 Unknown History cholecalciferol (vitamin D3) 25 mcg PO DAILY 12/30/20 01/13/21 Unknown History [Vitamin D3] clonidine HCl 0.2 mg PO BEDTIME 12/30/20 01/13/21 Unknown History cyanocobalamin (vitamin B-12) 100 mcg PO DAILY 12/30/20 01/13/21 Unknown History [Vitamin B-12] levothyroxine 50 mcg PO DAILY 12/30/20 01/13/21 01/05/21 History loratadine [Claritin] 10 mg PO DAILY PRN 12/30/20 01/13/21 Unknown History metoprolol succinate 100 mg PO BID 12/30/20 01/13/21 01/05/21 History omeprazole 20 mg PO DAILY 12/30/20 01/13/21 Unknown History Physical Exam Vital Signs and Narrative: Vital Signs: Last Vital Signs Temp 98.2 F 01/12/21 20:02 Pulse 60 01/12/21 20:02 Resp 18 01/12/21 20:02 BP 143/73 H 01/12/21 20:02 Pulse Ox 94 01/12/21 20:02 Body Mass Index 31.4 Const: Other: Oriented to self, but not place or time General: cooperative and no acute distress Eyes: General: appearance normal, both eyes and all related structures Resp: Effort & Inspection: normal respiratory effort and able to speak in complete sentences Cardio: Rate: regular rate Rhythm: regular rhythm GI: Palpation (GI): Soft to palpation Auscultation: normal bowel sounds Skin: General skin exam: no rashes or lesions noted Neuro: Cognition (Neuro): normal cognition Extrem: General: Yes normal to inspection and Yes no pedal edema Results Labs CBC and Chem 7: 01/13/21 04:02 01/13/21 04:02 Labs: Laboratory Results - last 24 hr 01/12/21 01/12/21 01/12/21 18:52 18:52 18:52 MCV 98.9 H MCH 28.8 MCHC 29.1 L RDW 16.7 H Plt Count 86 L MPV Not Reportable Immature Gran % (Auto) 0.5 H Neut % (Auto) 55.1 Lymph % (Auto) 32.3 [place] % (Auto) 8.3 Eos % (Auto) 3.3 Baso % (Auto) 0.5 Lymph # (Auto) 1.8 [place] # (Auto) 0.5 Eos # (Auto) 0.2 Baso # (Auto) 0.0 Abs Immat Gran (auto) 0.03 Absolute Neuts (auto) 3.1 Absolute Nucleated RBC 0.000 Nucleated RBC % (auto) 0.0 Smear Tech's Comments VERIFIED PT 15.8 H INR 1.3 H APTT 35.5 Anion Gap 14 Estim Creat Clear Calc 10.0 Estimated GFR 8 Random Glucose 117 H Calcium 7.3 L Total Bilirubin 0.5 Direct Bilirubin 0.2 AST 14 ALT 18 Alkaline Phosphatase 144 H Total Protein 6.7 Albumin 3.7 Urine Color Urine Appearance Urine pH Ur Specific [place] Urine Protein Urine Glucose (UA) Urine Ketones Urine Blood Urine Nitrite Ur Leukocyte Esterase Urine RBC Urine WBC Ur Squamous Epith Cells Urine Bacteria Urine Mucus COVID-19 ([facility]) COVID-19 Clin Com 01/12/21 01/12/21 18:52 20:59 MCV MCH MCHC RDW Plt Count MPV Immature Gran % (Auto) Neut % (Auto) Lymph % (Auto) [place] % (Auto) Eos % (Auto) Baso % (Auto) Lymph # (Auto) [place] # (Auto) Eos # (Auto) Baso # (Auto) Abs Immat Gran (auto) Absolute Neuts (auto) Absolute Nucleated RBC Nucleated RBC % (auto) Smear Tech's Comments PT INR APTT Anion Gap Estim Creat Clear Calc Estimated GFR Random Glucose Calcium Total Bilirubin Direct Bilirubin AST ALT Alkaline Phosphatase Total Protein Albumin Urine Color YELLOW Urine Appearance CLEAR Urine pH 5.0 Ur Specific [place] 1.020 Urine Protein 2+ H Urine Glucose (UA) NEG Urine Ketones NEG Urine Blood 1+ H Urine Nitrite NEG Ur Leukocyte Esterase NEG Urine RBC 0-2 Urine WBC 0-2 Ur Squamous Epith Cells TRACE Urine Bacteria TRACE Urine Mucus TRACE COVID-19 ([facility]) Negative COVID-19 Clin Com See Note Imaging Radiologist's Impressions: Impressions Chest X-Ray 01/12/21 17:46 IMPRESSION: Stable examination demonstrating no acute pulmonary pathology. Assessment and Plan (1) Encephalopathy: Status: Acute (2) Acute on chronic kidney failure: Qualifiers: Acute renal failure type: unspecified Chronic kidney disease stage: stage 5, not on chronic dialysis Qualified Code(s): N17.9 - Acute kidney failure, unspecified; N18.5 - Chronic kidney disease, stage 5 Status: Acute (3) Acute hyperkalemia: Status: Acute (4) Uremia: Status: Acute (5) Macrocytic anemia: Status: Acute This is an 80-year-old male with past medical history of CKD, diabetes, hypertension presents the hospital found to be more confused, and having DONA on CKD. # encephalopathy - possibly metabolic secondary to acute on chronic kidney disease. 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 has refused dialysis in the past - patient will be admitted, under monitor and will consult Nephrology for further management - follow mentation # acute on chronic kidney failure - will start IV fluids - nephrology consulted - follow BMP - hold nephrotoxic medications # hyperkalemia - secondary to renal failure - no EKG changes - received Kayexalate plus insulin, sodium bicarb, as well as furosemide in the ED - will follow BMP closely - admit to telemetry # macrocytic anemia - hemoglobin of 8, no evidence of overt bleed - will obtain stool occult blood - ferritin, iron studies, B12 as well as folic acid level - transfusion threshold of hemoglobin less than 7 - follow CBC # diabetes - start him on low-dose sliding scale insulin - diabetic diet # hypothyroidism - continue levothyroxine # hypertension - stable - continue clonidine, amlodipine # diabetes - unclear if patient takes medications for diabetes at home - will start him on low-dose sliding scale insulin - diabetic diet DVT prophylaxis:
[2021-01-13] VITALS (9 sets, daily range): BP systolic 138–168; BP diastolic 63–93; PULSE 63–69; RESP 18–22; TEMP 36.1–36.8; O2SAT 92–100; BMI 30.8
[2021-01-13] MEDS: Lactated Ringers 1,000 ML 80 ML IVCONT (02:21)
[2021-01-13 04:20] LABS: Hemoglobin 7.5 g/dl (14.0-18.0); MANUAL DIFF FLAG SCAN; SCAN SMEAR FLAG 1
[2021-01-13 04:22] LABS: Basophils Percent Auto 0.4 % (0-2); Eosinophils Absolute Auto 0.2 X10*3/uL (0.0-0.4); Eosinophils Percent Auto 2.8 % (0-4); Hematocrit 26.3 % (42-52); Imm Gran Abs Auto 0.02 X10*3/uL (0.00-0.03); Imm Gran Pct Auto 0.4 % (0.0-0.4); Lymphocytes Absolute Auto 1.5 X10*3/uL (1.2-4.9); Lymphocytes Percent Auto 28.6 % (20-40); Mean Corpuscular HGB Conc 28.5 g/dl (31.0-36.0); Mean Corpuscular Hemoglobin 28.3 pg (27.0-33.0); Mean Corpuscular Volume 99.2 fL (80-98); Monocytes Absolute Auto 0.5 X10*3/uL (0.1-1.2); Monocytes Percent Auto 8.4 % (2-11); Neutrophils Absolute Auto 3.2 X10*3/uL (2.0-8.3); Neutrophils Percent Auto 59.4 % (45-73); Red Blood Count 2.65 X10*6/uL (4.60-5.80); Red Cell Distribution Width 16.6 % (11.0-16.0); White Blood Count 5.4 X10*3/uL (4.8-10.8)
[2021-01-13 04:30] LABS: Platelet Count 74 X10*3/uL (160-400)
[2021-01-13 04:31] LABS: PLT ABN DIST 1
[2021-01-13 04:44] LABS: SLIDE REVIEW VERIFIED
[2021-01-13 04:46] LABS: Anion Gap 19 (12-20); Blood Urea Nitrogen 109 mg/dL (9-16); Calcium 7.6 mg/dL (8.4-10.2); Carbon Dioxide 15 mmol/L (22-29); Chloride 121 mmol/L (96-108); Glucose Random 100 mg/dL (60-115); Potassium 5.9 mmol/L (3.3-5.1); Sodium 149 mmol/L (135-145)
[2021-01-13 04:48] LABS: Creatinine Clr Calc Pharmacy 10.4; Estimated Glomerular Filt Rate 8
[2021-01-13] MEDS: Sodium Polystyrene Sulfon/Sorb 15 GM/60 ML ORAL.SUSP 30 GM PO (05:38)
[2021-01-13] MEDS: Sodium Chloride 0.45 % 1,000 ML 80 ML IVCONT (05:40)
[2021-01-13] MEDS: Levothyroxine Sodium 50 MCG TABLET PO (06:12)
[2021-01-13 07:06] LABS: Iron 42 mcg/dL (45-160); Percent Iron Saturation 25 % (15-50); Total Iron Binding Capacity 165 mcg/dL (228-428); Unsaturated Iron Binding 123 ug/dL
[2021-01-13 07:16] LABS: Glucose, Whole Blood 90 mg/dL (60-115)
[2021-01-13 07:26] LABS: Ferritin 1006 ng/mL (20-250)
[2021-01-13 07:39] LABS: Folate 3.9 ng/mL (> or = 4.0); Vitamin B12 1649 pg/mL (200-900)
[2021-01-13] MEDS: Cyanocobalamin (Vitamin B-12) 100 MCG TABLET PO (08:13)
[2021-01-13] MEDS: Metoprolol Succinate ER 100 MG TAB.ER.24H PO ×2 (08:13→20:56)
[2021-01-13] MEDS: 0.9 % Sodium Chloride Flush 3 ML SYRINGE IVFLUSH (08:13)
[2021-01-13] MEDS: Atorvastatin Calcium 80 MG TABLET PO (08:13)
[2021-01-13] MEDS: amLODIPine Besylate 2.5 MG TABLET PO (08:13)
[2021-01-13] MEDS: Aspirin Enteric Coated 81 MG TABLET.DR PO (08:13)
[2021-01-13] MEDS: Omeprazole 20 MG CAPSULE.DR PO (08:13)
[2021-01-13 08:58] LABS: OBS Int Ctl Valid YES; OBS1 NEGATIVE (NEGATIVE)
--- NOTE | 2021-01-13 09:45 | MHC.CM.PN ---
Patient is documented to be confused;CM spoke with Son/Gian @ [phone] and addressed IMM with him (original left at bedside, per Gian's request and a copy has been placed in the chart). Patient lives in an apartment with his Girlfriend/Casandra and he uses a walker to assist with mobility. Home/resume [employer](12 hours/week) is the goal for dc and CM has initiated and will follow for dc planning. Gian was encouraged to speal with [facility] regarding his wish ti have increased [employer] hours. PCP is Dr. Adriane Higuera. No HCP, Patient is presently confused. CM will follow.
[2021-01-13 11:12] LABS: Glucose, Whole Blood 122 mg/dL (60-115)
[2021-01-13 16:11] LABS: Glucose, Whole Blood 99 mg/dL (60-115)
--- NOTE | 2021-01-13 16:51 | CONS_ITS ---
DATE OF SERVICE: 01/13/2021 REASON FOR CONSULTATION: I was called to see this patient to manage the patient's advanced renal failure and hyperkalemia. HISTORY OF PRESENT ILLNESS: Bi is well known to me. He is an 80-year-old man with history of advanced chronic kidney disease. He has diabetic nephropathy by biopsy. He has refused to have dialysis in the past. He was brought to the hospital because of some change in mentation. He was also hyperkalemic. He has had recurrent episodes of hyperkalemia in the past, which is being treated with Kayexalate. PAST MEDICAL HISTORY: Ongoing medical problems include history of advanced chronic kidney disease, diabetes mellitus, hypertension, history of prostate cancer, peripheral vascular disease, history of COVID-19 vaccine administration, and coronary artery disease. PAST SURGICAL HISTORY: Includes colonoscopy, aortic valve replacement, CABG, and cystoscopy in the past. SOCIAL HISTORY: He lives with his spouse. No history of smoking or alcohol abuse at present. ALLERGIES: HE HAS NO KNOWN DRUG ALLERGIES. MEDICATIONS: At home included acetaminophen, Colace, allopurinol, amlodipine 2.5 mg, atorvastatin, clonidine, loratadine, metoprolol, and omeprazole. He does not take any MEL inhibitors due to hyperkalemia. REVIEW OF SYSTEMS: The patient appears confused. He denies any headache, nausea, or vomiting. No shortness of breath. No urinary symptoms. The patient is a poor historian. PHYSICAL EXAMINATION: GENERAL: Bi is awake. He is comfortable, not in any distress. He is pleasantly confused. NECK: Supple. No JVD. HEENT: Mucosa is dry. LUNGS: Air entry equal. No rales. Few scattered rhonchi. HEART: S1, S2 heard. No gallop. ABDOMEN: Obese, soft, nontender. EXTREMITIES: 1+ edema. No rash. No clubbing. VITAL SIGNS: Blood pressure 138/63, pulse 66. LABORATORY DATA: Hemoglobin 7.5, platelets 74,000. Sodium 149, potassium 5.9, CO2 of 15, BUN 109, creatinine 6.35. IMPRESSION: An 80-year-old man with advanced renal failure approaching end-stage renal disease with hyperkalemia and hyperchloremic metabolic acidosis with mild hypernatremia. Bi has advanced renal failure. The next step would be to proceed with initiating hemodialysis, however, in the past, he did not want hemodialysis. I talked to him again today and he is still unclear if he wants to have dialysis. in next 12 to 24 hours. In the meantime, I will cautiously hydrate him with half-normal saline, keep intake more than the output. I administer Kayexalate to correct the hyperkalemia and I will also add sodium bicarbonate tablets to correct the acidosis. He has significant anemia and we will Epogen to correct anemia. We will follow him closely with the team. Min Jimenez MD BPA/MODL / [id number] MTDD
--- NOTE | 2021-01-13 17:06 | P.PNIM_ITS ---
Subjective Subjective Date of Service: 01/13/21 Interval History: Toxic metabolic encephalopathy. 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 Denies any shortness of breath or chest pain or abdominal pain or diarrhea or nausea or vomiting or fever or chills. Denies any palpitations Physical Exam 2 Vital Signs: Vital Signs: Last Vital Signs Temp 97.0 F 01/13/21 15:22 Pulse 65 01/13/21 15:22 Resp 20 01/13/21 15:22 BP 140/69 H 01/13/21 15:22 Pulse Ox 95 01/13/21 15:22 Body Mass Index 30.8 Physical exam: Constitutional: Not in acute distress, sitting on the commode, talking fluently. Cvs: rrr, [id number] , no murmur res: Fair air entry, no rales or wheezing. abd: no rebound or guarding ,nt, bs present. ext pulses present , no cyanosis neuro: axo2, could able to answer most of the questions, but sometimes stops in between, nonfocal. In the afternoon checked with the son probably near his baseline as per son. Complaint as per son was sleeping excessively at home. And weakness. Objective Data Current Medications Generic Name Dose Route Start Last Admin Trade Name Freq PRN Reason Stop Dose Admin Acetaminophen 650 mg 01/12/21 21:59 Acetaminophen 325 Mg Tablet PO Q6H PRN Pain, Mild (Pain Scale 1-3) Amlodipine Besylate 2.5 mg 01/13/21 09:00 01/13/21 08:13 Amlodipine Besylate 2.5 Mg Tablet PO 2.5 mg DAILY [facility] Administration Protocol Aspirin 81 mg 01/13/21 09:00 01/13/21 08:13 Aspirin Enteric Coated 81 Mg Tablet. PO 81 mg DAILY [facility] Administration Atorvastatin Calcium 80 mg 01/13/21 09:00 01/13/21 08:13 Atorvastatin Calcium 80 Mg Tablet PO 80 mg DAILY [facility] Administration Clonidine HCl 0.2 mg 01/13/21 21:00 Clonidine Hcl 0.2 Mg Tablet PO BEDTIME [facility] Protocol Cyanocobalamin 100 mcg 01/13/21 09:00 01/13/21 08:13 Cyanocobalamin (Vitamin B-12) 100 Mcg Tablet PO 100 mcg DAILY [facility] Administration Docusate Sodium 100 mg 01/12/21 21:59 Docusate Sodium 100 Mg Capsule PO DAILY PRN Constipation Insulin Human Lispro 0 unit 01/13/21 07:30 01/13/21 16:49 Insulin Lispro 100 Unit/Ml 3 Ml Vial SUBCUT Not Given QIDACHS [facility] Protocol Levothyroxine Sodium 50 mcg 01/13/21 06:30 01/13/21 06:12 Levothyroxine Sodium 50 Mcg Tablet PO 50 mcg 0630 [facility] Administration Loratadine 10 mg 01/13/21 05:36 Loratadine 10 Mg Tablet PO DAILY PRN Itching Metoprolol Succinate 100 mg 01/13/21 09:00 01/13/21 08:13 Metoprolol Succinate Er 100 Mg Tab.Er.24h PO 100 mg BID [facility] Administration Protocol Omeprazole 20 mg 01/13/21 09:00 01/13/21 08:13 Omeprazole 20 Mg Capsule.Dr PO 20 mg DAILY [facility] Administration Ondansetron HCl 4 mg 01/12/21 21:59 Ondansetron Hcl 4 Mg/2 Ml Vial IVPUSH Q8H PRN Nausea and Vomiting Sodium Bicarbonate 650 mg 01/13/21 15:00 Sodium Bicarbonate 650 Mg Tablet PO TID [facility] Sodium Chloride 3 ml 01/13/21 00:00 01/13/21 16:48 0.9 % Sodium Chloride Flush 3 Ml Syringe IVFLUSH Not Given QSHIFT [facility] Labs CBC & Chem 7: 01/13/21 04:02 01/13/21 04:02 Assessment and Plan (1) Macrocytic anemia: Status: Acute (2) Encephalopathy: Status: Acute (3) Uremia: Status: Acute Assessment and Plan: 80-year-old male with past medical history of CKD, diabetes, hypertension presents the hospital found to be more confused, and having DONA on CKD. 1. Toxic metabolic encephalopathy - possibly metabolic secondary to acute on chronic kidney disease. Patient has significant elevation of BUN - according to heat treat inspector has refused dialysis in the past Mental status teresa seems slightly better than morning. Patient condition and management discussed with patient's son Mr. blount in detail- he also discussed with the patient and patient agrees to dialysis. Nephro teresa plan is to put dialysis catheter in the morning. Monitor clinically. 2. acute on chronic kidney failure Hold off fluids Still producing somewhat urine Continue to monitor Nephro following. 3. hyperkalemia - secondary to renal failure - no EKG changes - received Kayexalate plus insulin, sodium bicarb, as well as furosemide in the ED With above therapy patient is so potassium level came to 5.9 in addition in the morning early he also received another dose of Kayexalate so we will repeat potassium level before giving Kayexalate. 4. macrocytic anemia hb/hct : 7.5 /26.3( which seems like hb should be around 8.5 at least.), no evidence of overt bleed will obtain stool occult blood: negative ferritin, iron studies-seems anemia of ch dis , [id number],folic acid level boderline low 3.9 transfusion threshold of hemoglobin less than 7 follow CBC, added folic acid. 5.diabetes: fs 100-160 - start him on low-dose sliding scale insulin avoid avoid coverage below 200 mg dL - diabetic diet Will add hemoglobin A1c. 6. hypothyroidism- continue levothyroxine 7. hypertension- stable. - continue clonidine, amlodipine DVT prophylaxis: scd Plan discussed with family member Mr. Springer in detail- who discussed with his father at bedside: They both agree for hemodialysis, also patient's management discussed with patient's son in detail length he understand and in agreement with the above plan- patient is full code.
--- NOTE | 2021-01-13 17:20 | W.MHC.ACPN ---
Advanced Care Planning Note Advanced Care Planning Note Time spent (in minutes): 18 Narrative: discussed with family member Mr. Springer in detail- who discussed with his father at bedside: They both agree for hemodialysis, also patient's management discussed with patient's son in detail length including advanced renal dis , uremia , anemia- he understand and in agreement with the above plan- patient is full code. face to face time spent 18-20 min starting 4:30 pm Problems Discussed (1) Macrocytic anemia: (2) Encephalopathy: (3) Uremia:
[2021-01-13] MEDS: Sodium Bicarbonate 650 MG TABLET PO ×2 (17:26→20:56)
[2021-01-13] MEDS: Folic Acid 1 MG TABLET PO (17:26)
[2021-01-13 18:34] LABS: Alanine Aminotransferase 17 U/L (0-40); Albumin Level 3.3 g/dL (3.5-5.0); Alkaline Phosphatase 134 U/L (39-117); Aspartate Amino Transferase 15 U/L (5-37); Bilirubin Direct 0.2 mg/dL (0.0-0.5); Bilirubin Total 0.6 mg/dL (0.0-1.0); Total Protein 6.3 g/dL (6.5-8.0)
[2021-01-13 19:23] LABS: Estimated Average Glucose 103 mg/dL; Hemoglobin A1C 70.5375 umol/L; Hemoglobin A1c % 5.2 %
[2021-01-13 20:18] LABS: Glucose, Whole Blood 99 mg/dL (60-115)
[2021-01-13] MEDS: cloNIDine HCL 0.2 MG TABLET PO (20:55)
[2021-01-14] VITALS (10 sets, daily range): BP systolic 128–183; BP diastolic 64–84; PULSE 58–66; RESP 18–20; TEMP 36.1–37; O2SAT 90–96; BMI 30.4
[2021-01-14] MEDS: 0.9 % Sodium Chloride Flush 3 ML SYRINGE IVFLUSH ×3 (00:09→15:41)
[2021-01-14] MEDS: Levothyroxine Sodium 50 MCG TABLET PO (05:32)
[2021-01-14 06:44] LABS: Anion Gap 15 (12-20); Blood Urea Nitrogen 101 mg/dL (9-16); Calcium 7.2 mg/dL (8.4-10.2); Carbon Dioxide 21 mmol/L (22-29); Chloride 120 mmol/L (96-108); Creatinine Clr Calc Pharmacy 10.4; Estimated Glomerular Filt Rate 9; Glucose Random 95 mg/dL (60-115); Potassium 4.8 mmol/L (3.3-5.1); Sodium 151 mmol/L (135-145)
[2021-01-14 06:51] LABS: Hematocrit 27.4 % (42-52)
[2021-01-14 07:16] LABS: Glucose, Whole Blood 81 mg/dL (60-115)
[2021-01-14] MEDS: Sodium Bicarbonate 650 MG TABLET PO ×3 (08:46→20:12)
[2021-01-14] MEDS: Aspirin Enteric Coated 81 MG TABLET.DR PO (08:46)
[2021-01-14] MEDS: amLODIPine Besylate 2.5 MG TABLET PO (08:46)
[2021-01-14] MEDS: Omeprazole 20 MG CAPSULE.DR PO (08:46)
[2021-01-14] MEDS: Metoprolol Succinate ER 100 MG TAB.ER.24H PO ×2 (08:46→20:11)
[2021-01-14] MEDS: Folic Acid 1 MG TABLET PO (08:46)
[2021-01-14] MEDS: Atorvastatin Calcium 80 MG TABLET PO (08:47)
[2021-01-14] MEDS: Cyanocobalamin (Vitamin B-12) 100 MCG TABLET PO (08:47)
[2021-01-14 11:16] LABS: Glucose, Whole Blood 80 mg/dL (60-115)
--- NOTE | 2021-01-14 12:22 | MHC.CM.PN ---
Per ROUNDS discussion, Patient is not yet medically cleared for dc (Patients agrees to new HD). Home/resume [facility] services is the goal for dc and CM will follow for possible need to adjust the dc plan.
--- NOTE | 2021-01-14 13:33 | HO.RADPN ---
RADIOLOGY Narrative Narrative: Right IJ Palindrome permacath placed. Tip at cavoatrial junction.
--- NOTE | 2021-01-14 15:26 | PM.PNNEP ---
Subjective Subjective Date of Service: 01/14/21 Interval history: Events noted Spoke to son yesterday and pt and family want dialysis Physical Exam Vital Signs: Vital Signs: Last Vital Signs Temp 97 F 01/14/21 15:14 Pulse 64 01/14/21 15:14 Resp 18 01/14/21 15:14 BP 130/67 01/14/21 15:14 Pulse Ox 94 01/14/21 15:14 Body Mass Index 30.4 Const: General: awake Neck: Neck: Yes supple Resp: Auscultation: diminished lung sounds Cardio: Heart sounds: no murmurs and no rubs Neuro: Motor exam (neuro): No Asterixis during motor activity present Extrem: Left upper extremity: edema Objective Data Labs CBC & Chem 7: 01/14/21 05:31 01/14/21 05:31 Labs: Laboratory Results - last 24 hr 01/13/21 01/13/21 01/13/21 04:02 16:01 19:04 Hgb Hct Sodium Potassium 5.0 Chloride Carbon Dioxide Anion Gap BUN Creatinine Estim Creat Clear Calc Estimated GFR POC Glucose 99 Random Glucose Estimat Average Glucose Hemoglobin A1c % Calcium Total Bilirubin 0.6 Direct Bilirubin 0.2 AST 15 ALT 17 Alkaline Phosphatase 134 H Total Protein 6.3 L Albumin 3.3 L 01/13/21 01/13/21 01/14/21 19:04 19:41 05:31 Hgb 8.0 L Hct 27.4 L Sodium Potassium Chloride Carbon Dioxide Anion Gap BUN Creatinine Estim Creat Clear Calc Estimated GFR POC Glucose 99 Random Glucose Estimat Average Glucose 103 Hemoglobin A1c % 5.2 Calcium Total Bilirubin Direct Bilirubin AST ALT Alkaline Phosphatase Total Protein Albumin 01/14/21 01/14/21 01/14/21 05:31 06:59 11:04 Hgb Hct Sodium 151 H Potassium 4.8 Chloride 120 H Carbon Dioxide 21 L Anion Gap 15 BUN 101 H* Creatinine 6.25 H* Estim Creat Clear Calc 10.4 Estimated GFR 9 POC Glucose 81 80 Random Glucose 95 Estimat Average Glucose Hemoglobin A1c % Calcium 7.2 L Total Bilirubin Direct Bilirubin AST ALT Alkaline Phosphatase Total Protein Albumin Assessment & Plan Assessment and plan (1) CKD (chronic kidney disease) stage 5, GFR less than 15 ml/min: Problem details: Advanced CKD approaching ESRD with hyperkalemia Agrees for dialysis Await Permcath today Will initiate dialysis and use low K bath Increase free water intake to correct hypernatremia Status: Acute Time Spent With Patient Time: Total time spent is greater than 50% in coordination of care (as documented) at patient's floor/unit and/or counseling patient:
[2021-01-14 16:20] LABS: Glucose, Whole Blood 94 mg/dL (60-115)
--- NOTE | 2021-01-14 16:37 | P.PNIM_ITS ---
Subjective Subjective Date of Service: 01/15/21 Interval History: toxic metabolic encephalopathy, uremia Review of Systems Still seems somewhat confused otherwise denies any abdominal pain or nausea or vomiting or fever or chills. Denies any shortness of breath or chest pain. Physical Exam Vital Signs: Vital Signs: Last Vital Signs Temp 97 F 01/14/21 15:14 Pulse 64 01/14/21 15:14 Resp 18 01/14/21 15:14 BP 130/67 01/14/21 15:14 Pulse Ox 94 01/14/21 15:14 Body Mass Index 30.4 Physical exam: Constitutional: not in acute distress. Cvs: rrr, [id number] , no murmur res: clear to auscultation ,no rhonchii or wheezing abd: no rebound or guarding ,nt, bs present. ext pulses present , no cyanosis neuro: some what confused still aox2 , nonfocal. Objective Data Current Medications Generic Name Dose Route Start Last Admin Trade Name Freq PRN Reason Stop Dose Admin Acetaminophen 650 mg 01/12/21 21:59 Acetaminophen 325 Mg Tablet PO Q6H PRN Pain, Mild (Pain Scale 1-3) Amlodipine Besylate 2.5 mg 01/13/21 09:00 01/14/21 08:46 Amlodipine Besylate 2.5 Mg Tablet PO 2.5 mg DAILY [facility] Administration Protocol Aspirin 81 mg 01/13/21 09:00 01/14/21 08:46 Aspirin Enteric Coated 81 Mg Tablet. PO 81 mg DAILY [facility] Administration Atorvastatin Calcium 80 mg 01/13/21 09:00 01/14/21 08:47 Atorvastatin Calcium 80 Mg Tablet PO 80 mg DAILY [facility] Administration Clonidine HCl 0.2 mg 01/13/21 21:00 01/13/21 20:55 Clonidine Hcl 0.2 Mg Tablet PO 0.2 mg BEDTIME [facility] Administration Protocol Cyanocobalamin 100 mcg 01/13/21 09:00 01/14/21 08:47 Cyanocobalamin (Vitamin B-12) 100 Mcg Tablet PO 100 mcg DAILY [facility] Administration Docusate Sodium 100 mg 01/12/21 21:59 Docusate Sodium 100 Mg Capsule PO DAILY PRN Constipation Folic Acid 1 mg 01/13/21 17:15 01/14/21 08:46 Folic Acid 1 Mg Tablet PO 1 mg DAILY [facility] Administration Insulin Human Lispro 0 unit 01/13/21 07:30 01/14/21 11:27 Insulin Lispro 100 Unit/Ml 3 Ml Vial SUBCUT Not Given QIDACHS [facility] Protocol Levothyroxine Sodium 50 mcg 01/13/21 06:30 01/14/21 05:32 Levothyroxine Sodium 50 Mcg Tablet PO 50 mcg 0630 [facility] Administration Loratadine 10 mg 01/13/21 05:36 Loratadine 10 Mg Tablet PO DAILY PRN Itching Metoprolol Succinate 100 mg 01/13/21 09:00 01/14/21 08:46 Metoprolol Succinate Er 100 Mg Tab.Er.24h PO 100 mg BID [facility] Administration Protocol Omeprazole 20 mg 01/13/21 09:00 01/14/21 08:46 Omeprazole 20 Mg Capsule.Dr PO 20 mg DAILY [facility] Administration Ondansetron HCl 4 mg 01/12/21 21:59 Ondansetron Hcl 4 Mg/2 Ml Vial IVPUSH Q8H PRN Nausea and Vomiting Sodium Bicarbonate 650 mg 01/13/21 15:00 01/14/21 15:41 Sodium Bicarbonate 650 Mg Tablet PO 650 mg TID [facility] Administration Sodium Chloride 3 ml 01/13/21 00:00 01/14/21 15:41 0.9 % Sodium Chloride Flush 3 Ml Syringe IVFLUSH 3 ml QSHIFT [facility] Administration Labs CBC & Chem 7: 01/15/21 05:26 01/15/21 05:26 Assessment and Plan (1) Macrocytic anemia: Status: Acute (2) Encephalopathy: Status: Acute (3) Uremia: Status: Acute Assessment and Plan: Day: 3 80-year-old male with past medical history of CKD, diabetes, hypertension presents the hospital found to be more confused, and having DONA on CKD. 1. Toxic metabolic encephalopathy- multifactorial :possibly metabolic secondary to acute on chronic kidney disease, hypernatremia. Mental status teresa seems simialr as yesterday s/p HD catheter paln to HD tomorrow: Will add D5ns 50 mL/hour total 500 ml 2. chronic kidney failure Still producing somewhat urine Continue to monitor Nephro following-will need HD 3. hyperkalemia - secondary to renal failure - no EKG changes s/p kayxelate yesterday potassium seems to be improved moniter bmo daily. 4. macrocytic anemia hb/hct : 8.0 /27.4( which seems like hb should be around 9 at least.), no evidence of overt bleed stool occult blood: negative ferritin, iron studies-seems anemia of ch dis , [id number],folic acid level boderline low 3.9 transfusion threshold of hemoglobin less than 7 follow CBC, added folic acid. 5.diabetes: fs 90-100 hemoglobin A1c 5.2 , will hold covering insulin. dm diet 6. hypothyroidism- continue levothyroxine 7. hypertension- stable. - continue clonidine, amlodipine DVT prophylaxis: scd Plan discussed with family member Mr. Springer in detail- who discussed with his father at bedside: They both agree for hemodialysis, also patient's management discussed with patient's son in detail length he understand and in agreement with the above plan- patient is full code.
[2021-01-14] MEDS: Dextrose 5 % and 0.9 % NaCl 1,000 ML 50 ML IVCONT (17:25)
[2021-01-14] MEDS: cloNIDine HCL 0.2 MG TABLET PO (20:11)
[2021-01-14 20:39] LABS: Glucose, Whole Blood 110 mg/dL (60-115)
[2021-01-15] VITALS (11 sets, daily range): BP systolic 104–167; BP diastolic 57–78; PULSE 55–96; RESP 14–20; TEMP 35.7–36.8; O2SAT 94–100; BMI 30.9
[2021-01-15] MEDS: 0.9 % Sodium Chloride Flush 3 ML SYRINGE IVFLUSH ×2 (00:10→21:25)
[2021-01-15] MEDS: Levothyroxine Sodium 50 MCG TABLET PO (05:36)
[2021-01-15 06:09] LABS: Hematocrit 24.5 % (42-52)
[2021-01-15 06:42] LABS: Anion Gap 11 (12-20); Blood Urea Nitrogen 98 mg/dL (9-16); Calcium 6.5 mg/dL (8.4-10.2); Carbon Dioxide 23 mmol/L (22-29); Chloride 119 mmol/L (96-108); Glucose Random 104 mg/dL (60-115); Potassium 4.4 mmol/L (3.3-5.1); Sodium 149 mmol/L (135-145)
[2021-01-15 06:44] LABS: Creatinine Clr Calc Pharmacy 10.7; Estimated Glomerular Filt Rate 9
[2021-01-15 07:33] LABS: Glucose, Whole Blood 99 mg/dL (60-115)
[2021-01-15] MEDS: Aspirin Enteric Coated 81 MG TABLET.DR PO (08:17)
[2021-01-15] MEDS: Omeprazole 20 MG CAPSULE.DR PO (08:17)
[2021-01-15] MEDS: Atorvastatin Calcium 80 MG TABLET PO (08:17)
[2021-01-15] MEDS: Sodium Bicarbonate 650 MG TABLET PO ×3 (08:17→21:20)
[2021-01-15] MEDS: Folic Acid 1 MG TABLET PO (08:17)
[2021-01-15] MEDS: Cyanocobalamin (Vitamin B-12) 100 MCG TABLET PO (08:17)
[2021-01-15] MEDS: Acetaminophen 325 MG TABLET 650 MG PO (08:22)
[2021-01-15 10:30] LABS: HBS Num1 0.72 mIU/mL (0-7.99); HBsAGNum1 0.44 S/CO (0.00-0.99); Hepatitis B Surface Antigen Negative (Negative); ~Hepatitis B Surface Antibody NONREACTIVE (Nonreactive)
[2021-01-15 10:37] LABS: Hepatitis B Core Antibody Nonreactive (Nonreactive); ~Hepatitis C Antibody Nonreactive (Nonreactive)
[2021-01-15] MEDS: MannitoL 12.5 GM/50 ML VIAL IV (12:22)
[2021-01-15 12:43] LABS: Glucose, Whole Blood 115 mg/dL (60-115)
--- NOTE | 2021-01-15 14:53 | PM.PNNEP ---
Subjective Subjective Date of Service: 01/15/21 Interval history: Feeling BP s/p Permcath Physical Exam Vital Signs: Vital Signs: Last Vital Signs Temp 96.5 F L 01/15/21 12:03 Pulse 55 01/15/21 13:58 Resp 18 01/15/21 12:03 BP 118/70 01/15/21 13:58 Pulse Ox 97 01/15/21 12:00 Body Mass Index 30.9 Const: General: awake Neck: Neck: Yes supple Resp: Auscultation: diminished lung sounds Cardio: Heart sounds: no murmurs and no rubs Neuro: Motor exam (neuro): No Asterixis during motor activity present Extrem: Left upper extremity: edema Objective Data Labs CBC & Chem 7: 01/15/21 05:26 01/15/21 05:26 Labs: Laboratory Results - last 24 hr 01/14/21 01/14/21 01/15/21 16:10 20:33 05:26 Hgb 7.0 L* Hct 24.5 L Sodium Potassium Chloride Carbon Dioxide Anion Gap BUN Creatinine Estim Creat Clear Calc Estimated GFR POC Glucose 94 110 Random Glucose Calcium Hep Bs Antigen Hep Bs Antibody Hep B Core Total Ab Hepatitis C Ab (EIA) Blood Type Antibody Screen Crossmatch 01/15/21 01/15/21 01/15/21 05:26 07:15 08:59 Hgb Hct Sodium 149 H Potassium 4.4 Chloride 119 H Carbon Dioxide 23 Anion Gap 11 L BUN 98 H* Creatinine 6.12 H* Estim Creat Clear Calc 10.7 Estimated GFR 9 POC Glucose 99 Random Glucose 104 Calcium 6.5 L D Hep Bs Antigen Negative Hep Bs Antibody NONREACTIVE Hep B Core Total Ab Nonreactive Hepatitis C Ab (EIA) Nonreactive Blood Type Antibody Screen Crossmatch 01/15/21 01/15/21 08:59 12:37 Hgb Hct Sodium Potassium Chloride Carbon Dioxide Anion Gap BUN Creatinine Estim Creat Clear Calc Estimated GFR POC Glucose 115 Random Glucose Calcium Hep Bs Antigen Hep Bs Antibody Hep B Core Total Ab Hepatitis C Ab (EIA) Blood Type A Positive Antibody Screen NEGATIVE Crossmatch See Detail Assessment & Plan Assessment and plan (1) CKD (chronic kidney disease) stage 5, GFR less than 15 ml/min: Status: Acute Time Spent With Patient Time: Total time spent is greater than 50% in coordination of care (as documented) at patient's floor/unit and/or counseling patient:
--- NOTE | 2021-01-15 14:58 | P.PNIM_ITS ---
Subjective Subjective Date of Service: 01/15/21 Interval History: Toxic metabolic encephalopathy, advanced ckd on hd Review of Systems Patient was somewhat short of breath, Denies any blood in the stool or melena Denies any chest pain or shortness of breath abdominal pain or fever or chills Denies any nausea or vomiting Physical Exam Vital Signs: Vital Signs: Last Vital Signs Temp 96.5 F L 01/15/21 12:03 Pulse 55 01/15/21 13:58 Resp 18 01/15/21 12:03 BP 118/70 01/15/21 13:58 Pulse Ox 97 01/15/21 12:00 Body Mass Index 30.9 Physical exam: Constitutional: Not acute distress Cvs: rrr, [id number] , no murmur res: Grossly fair air entry, slightly diminished at bases abd: no rebound or guarding ,nt, bs present. ext pulses present , no cyanosis neuro: seems still confused, nonfocal. Objective Data Current Medications Generic Name Dose Route Start Last Admin Trade Name Freq PRN Reason Stop Dose Admin Acetaminophen 650 mg 01/12/21 21:59 01/15/21 08:22 Acetaminophen 325 Mg Tablet PO 650 mg Q6H PRN Administration Pain, Mild (Pain Scale 1-3) Amlodipine Besylate 2.5 mg 01/13/21 09:00 01/15/21 08:18 Amlodipine Besylate 2.5 Mg Tablet PO Not Given DAILY [facility] Protocol Aspirin 81 mg 01/13/21 09:00 01/15/21 08:17 Aspirin Enteric Coated 81 Mg Tablet.Dr PO 81 mg DAILY [facility] Administration Atorvastatin Calcium 80 mg 01/13/21 09:00 01/15/21 08:17 Atorvastatin Calcium 80 Mg Tablet PO 80 mg DAILY [facility] Administration Clonidine HCl 0.2 mg 01/13/21 21:00 01/14/21 20:11 Clonidine Hcl 0.2 Mg Tablet PO 0.2 mg BEDTIME [facility] Administration Protocol Cyanocobalamin 100 mcg 01/13/21 09:00 01/15/21 08:17 Cyanocobalamin (Vitamin B-12) 100 Mcg Tablet PO 100 mcg DAILY [facility] Administration Docusate Sodium 100 mg 01/12/21 21:59 Docusate Sodium 100 Mg Capsule PO DAILY PRN Constipation Folic Acid 1 mg 01/13/21 17:15 01/15/21 08:17 Folic Acid 1 Mg Tablet PO 1 mg DAILY [facility] Administration Dextrose/Sodium Chloride 1,000 mls @ 50 mls/hr 01/14/21 17:00 01/15/21 13:20 D5ns IVCONT Not Given .Q20H [facility] Levothyroxine Sodium 50 mcg 01/13/21 06:30 01/15/21 05:36 Levothyroxine Sodium 50 Mcg Tablet PO 50 mcg 0630 [facility] Administration Loratadine 10 mg 01/13/21 05:36 Loratadine 10 Mg Tablet PO DAILY PRN Itching Metoprolol Succinate 100 mg 01/13/21 09:00 01/15/21 08:17 Metoprolol Succinate Er 100 Mg Tab.Er.24h PO Not Given BID [facility] Protocol Omeprazole 20 mg 01/13/21 09:00 01/15/21 08:17 Omeprazole 20 Mg Capsule.Dr PO 20 mg DAILY [facility] Administration Ondansetron HCl 4 mg 01/12/21 21:59 Ondansetron Hcl 4 Mg/2 Ml Vial IVPUSH Q8H PRN Nausea and Vomiting Sodium Bicarbonate 650 mg 01/13/21 15:00 01/15/21 08:17 Sodium Bicarbonate 650 Mg Tablet PO 650 mg TID [facility] Administration Sodium Chloride 3 ml 01/13/21 00:00 01/15/21 08:17 0.9 % Sodium Chloride Flush 3 Ml Syringe IVFLUSH Not Given QSHIFT [facility] Labs CBC & Chem 7: 01/15/21 05:26 01/15/21 05:26 Assessment and Plan (1) Macrocytic anemia: Status: Acute (2) CKD (chronic kidney disease) stage 5, GFR less than 15 ml/min: Status: Acute Assessment and Plan: 80-year-old male with past medical history of CKD, diabetes, hypertension presents the hospital found to be more confused, and having DONA on CKD. 1. Toxic metabolic encephalopathy- multifactorial :possibly metabolic secondary to acute on chronic kidney disease, hypernatremia. Mental status teresa seems simialr as yesterday s/p HD catheter And as today Hyponatremia seems to be improving. Continue to monitor. 2. chronic kidney failure Still producing somewhat urine Continue to monitor Will need another dialysis tomorrow 3. hyperkalemia Resolved with Kayexalate and now dialysis. 4. macrocytic anemia hb/hct : 7.0 /24.5, no evidence of overt bleed stool occult blood: negative ferritin, iron studies-seems anemia of ch dis , [id number],folic acid level boderline low 3.9 transfusse prbc today during HD. follow CBC, added folic acid. 5.diabetes: fs 90-100 hemoglobin A1c 5.2 , will hold covering insulin. dm diet 6. hypothyroidism- continue levothyroxine 7. hypertension- stable. - continue clonidine, amlodipine
[2021-01-15 16:04] LABS: Glucose, Whole Blood 117 mg/dL (60-115)
[2021-01-15] MEDS: Dextrose 5 % and 0.9 % NaCl 1,000 ML 50 ML IVCONT (17:49)
[2021-01-15 20:05] LABS: Glucose, Whole Blood 121 mg/dL (60-115)
[2021-01-15] MEDS: cloNIDine HCL 0.2 MG TABLET PO (21:20)
[2021-01-15 22:17] LABS: Hematocrit 27.4 % (42-52); Hemoglobin 8.3 g/dl (14.0-18.0)
[2021-01-16 03:41] VITALS: BP 165/83; PULSE 67; RESP 14; TEMP 36.8; O2SAT 98
[2021-01-16 05:58] VITALS: BMI 31.9
[2021-01-16 06:36] LABS: Hemoglobin 8.7 g/dl (14.0-18.0)
[2021-01-16 06:38] LABS: Hematocrit 29.4 % (42-52)
[2021-01-16] MEDS: Levothyroxine Sodium 50 MCG TABLET PO (06:53)
[2021-01-16 07:27] LABS: Anion Gap 13 (12-20); Blood Urea Nitrogen 53 mg/dL (9-16); Calcium 6.6 mg/dL (8.4-10.2); Carbon Dioxide 23 mmol/L (22-29); Chloride 111 mmol/L (96-108); Creatinine Clr Calc Pharmacy 15.2; Estimated Glomerular Filt Rate 13; Glucose Random 112 mg/dL (60-115); Potassium 3.9 mmol/L (3.3-5.1); Sodium 143 mmol/L (135-145)
[2021-01-16 07:43] LABS: Glucose, Whole Blood 101 mg/dL (60-115)
[2021-01-16 08:00] VITALS: BP 162/87; PULSE 70; RESP 20; TEMP 36.3; O2SAT 97
[2021-01-16] MEDS: Atorvastatin Calcium 80 MG TABLET PO (08:46)
[2021-01-16] MEDS: Cyanocobalamin (Vitamin B-12) 100 MCG TABLET PO (08:46)
[2021-01-16] MEDS: Sodium Bicarbonate 650 MG TABLET PO (08:46)
[2021-01-16] MEDS: Omeprazole 20 MG CAPSULE.DR PO (08:46)
[2021-01-16] MEDS: Aspirin Enteric Coated 81 MG TABLET.DR PO (08:47)
[2021-01-16] MEDS: Folic Acid 1 MG TABLET PO (08:47)
[2021-01-16 09:26] VITALS: BP 162/87; PULSE 70; O2SAT 97
[2021-01-16 11:19] LABS: Glucose, Whole Blood 121 mg/dL (60-115)
[2021-01-16 11:32] VITALS: BP 141/65; PULSE 65; RESP 18; TEMP 36.4; O2SAT 96
--- NOTE | 2021-01-16 11:59 | MHC.CM.PN ---
spoke with son babatunde [phone] in regards to physical therapy recommendations fr str son want mto take pt bossman e with [facility] will dc pt after dialysis he or paediatric surgeon will [place] pt home
--- NOTE | 2021-01-16 12:11 | MHC.CM.PN ---
hcp filed and placed on chart naming his son babatunde as his hcp [phone]
--- NOTE | 2021-01-16 12:17 | PM.PNNEP ---
Subjective Subjective Date of Service: 01/16/21 Interval history: Doing better No nausea or vomiting Physical Exam Vital Signs: Vital Signs: Last Vital Signs Temp 97.6 F 01/16/21 11:32 Pulse 65 01/16/21 11:32 Resp 18 01/16/21 11:32 BP 141/65 H 01/16/21 11:32 Pulse Ox 96 01/16/21 11:32 Body Mass Index 31.9 Const: General: awake Neck: Neck: Yes supple Resp: Auscultation: diminished lung sounds Cardio: Heart sounds: no murmurs and no rubs Neuro: Motor exam (neuro): No Asterixis during motor activity present Extrem: Left upper extremity: edema Objective Data Labs CBC & Chem 7: 01/16/21 05:49 01/16/21 05:49 Labs: Laboratory Results - last 24 hr 01/15/21 01/15/21 01/15/21 12:37 15:53 19:52 Hgb Hct Sodium Potassium Chloride Carbon Dioxide Anion Gap BUN Creatinine Estim Creat Clear Calc Estimated GFR POC Glucose 115 117 H 121 H Random Glucose Calcium 01/15/21 01/16/21 01/16/21 22:00 05:49 05:49 Hgb 8.3 L 8.7 L Hct 27.4 L 29.4 L Sodium 143 Potassium 3.9 Chloride 111 H Carbon Dioxide 23 Anion Gap 13 BUN 53 H Creatinine 4.40 H* Estim Creat Clear Calc 15.2 Estimated GFR 13 POC Glucose Random Glucose 112 Calcium 6.6 L 01/16/21 01/16/21 07:28 11:09 Hgb Hct Sodium Potassium Chloride Carbon Dioxide Anion Gap BUN Creatinine Estim Creat Clear Calc Estimated GFR POC Glucose 101 121 H Random Glucose Calcium Assessment & Plan Assessment and plan (1) CKD (chronic kidney disease) stage 5, GFR 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
--- NOTE | 2021-01-16 12:36 | MHC.CM.PN ---
spoke with remi at [facility] who explains vitaliyat
--- NOTE | 2021-01-16 12:36 | MHC.CM.PN ---
spoke with remi /tho who was notified that pt is to go home today after dialysis remi says that tho will provide the physical therapy for pt ..hcp completed and placed on chart
[2021-01-16 13:28] LABS: Albumin Level 3.4 g/dL (3.5-5.0); Alkaline Phosphatase 139 U/L (39-117); Aspartate Amino Transferase 12 U/L (5-37); Bilirubin Direct 0.2 mg/dL (0.0-0.5); Bilirubin Total 0.5 mg/dL (0.0-1.0); Total Protein 6.2 g/dL (6.5-8.0)
[2021-01-16 13:38] LABS: Alanine Aminotransferase < 6 U/L (0-40)
--- NOTE | 2021-01-16 15:34 | P.DS_ITS ---
DS: Providers Provider Date of Service: 01/16/21 Date of admission: 01/12/21 21:59 Primary care physician: Unknown Physician Consults: 01/12/21 21:59 Consult to Nephrology Routine Consulting Provider: [facility] Reason for consultation: renal failure Has provider been notified: Yes DS: Diagnosis Discharge Diagnosis (1) CKD (chronic kidney disease) stage 5, GFR less than 15 ml/min: Status: Acute Problem details: Advanced CKD Approached ERSD s/p permcath 01/14/21 s/p first HD on 01/15/21 HD again today Out patient HD arranged at [facility] ( [place]) [place] planning 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 Procrit 58800 U x 1 dose DS: Medications Discharge Medications Home Medications: Home Medications Medication Instructions Recorded Confirmed allopurinol 100 mg PO DAILY 12/30/20 01/13/21 amlodipine 2.5 mg PO DAILY 12/30/20 01/13/21 aspirin 81 mg PO DAILY 12/30/20 01/13/21 atorvastatin 80 mg PO DAILY 12/30/20 01/13/21 cholecalciferol (vitamin D3) 25 mcg PO DAILY 12/30/20 01/13/21 [Vitamin D3] clonidine HCl 0.2 mg PO BEDTIME 12/30/20 01/13/21 cyanocobalamin (vitamin B-12) 1,000 mcg PO DAILY 12/30/20 01/13/21 [Vitamin B-12] levothyroxine 50 mcg PO DAILY 12/30/20 01/13/21 loratadine [Claritin] 10 mg PO DAILY PRN 12/30/20 01/13/21 metoprolol succinate 100 mg PO BID 12/30/20 01/13/21 omeprazole 20 mg PO DAILY 12/30/20 01/13/21 DS: Summary Hospital Course Hospital Course: 80-year-old male with past medical history of diabetes, hypertension, CKD, COPD, GERD, HLD, prostate cancer, PVD, and hypothyroidism presents to the hospital sent from PCP for confusion, increased weakness. Patient is Swedish-speaking history is obtained with the help of hired hand. Although patient is alert and awake, he is completely confused. Not oriented to place or time, not answering questions appropriately, following minimal commands. It appears that patient was seen by his PCP, had abnormal lab findings, increased confusion and therefore was sent to the hospital. Vitals on arrival short temp of 98.8?, heart rate of 56, respiratory rate of 18, blood pressure 130/64, satting 95% on room air. Labs are significant for WBC of 5.4, hemoglobin of 8.2, 15.8, platelets of 86, INR 1.3, a from sodium of 145, potassium of 6.6, chloride level 117, BUN of 107 baseline around 76, creatinine of 6.6 baseline around 4-5, UA positive for protein, and blood with no RBC, COVID negative. Chest x-ray was negative, Nephrology was contacted by ED physician, reported that patient had refused dialysis in the past but will see the patient in the morning. Hospital Course problem teresa section: Patient came with encephalopathy toxic metabolic probably multifactorial related to uremia due to end-stage renal disease as well as add hyperkalemia: Patient subsequently received hemodialysis and is improved also received Kayexalate for hyperkalemia which is also improved. Hypernatremia also probably related to loose bowels due to kayxelate/uremia: Which also improved with dialysis. Patient had mild hypocalcemia which is probably related to secondary hypothyroidism probably related to advanced renal disease-as per Nephro PTH added and as well as a phosphorous level. Currently no need calcium replacement as per Nephrology. Anemia teresa: Probably anemia of chronic disease , fobt negative. Patient received blood transfusion: Hemoglobin is stable around 8-8.5 range Monitor CBC and BMP outpatient with PCP and further management as per PCP and Nephrology. Nephrology going to arrange outpatient hemodialysis Above management discussed with the patient and his son in detail length both understand and in agreement with the above plan, time spent 50 minutes and 50% time spent on counseling. Significant findings: As above. Procedures performed: None. Treatment and response: As above. Complications: None. Time Spent with Patient Time attestation: Total time spent providing and/or coordinating discharge services: Discharge coordination time: Greater than 30 minutes Physical Exam Vital Signs: Vital Signs: Last Vital Signs Temp 97.6 F 01/16/21 11:32 Pulse 65 01/16/21 11:32 Resp 18 01/16/21 11:32 BP 141/65 H 01/16/21 11:32 Pulse Ox 96 01/16/21 11:32 Body Mass Index 31.9 Physical exam: Constitutional: Not acute distress Cvs: rrr, [id number] , no murmur res: Grossly fair air entry, slightly diminished at bases abd: no rebound or guarding ,nt, bs present. ext pulses present , no cyanosis neuro: Seems awake alert and could able to answer most of the questions, nonfocal. DS: Data Data Completed and Pending Labs on day of discharge: Laboratory Results - last 24 hr 01/15/21 01/15/21 01/15/21 15:53 19:52 22:00 Hgb 8.3 L Hct 27.4 L Sodium Potassium Chloride Carbon Dioxide Anion Gap BUN Creatinine Estim Creat Clear Calc Estimated GFR POC Glucose 117 H 121 H Random Glucose Calcium Total Bilirubin Direct Bilirubin AST ALT Alkaline Phosphatase Total Protein Albumin 01/16/21 01/16/21 01/16/21 05:49 05:49 07:28 Hgb 8.7 L Hct 29.4 L Sodium 143 Potassium 3.9 Chloride 111 H Carbon Dioxide 23 Anion Gap 13 BUN 53 H Creatinine 4.40 H* Estim Creat Clear Calc 15.2 Estimated GFR 13 POC Glucose 101 Random Glucose 112 Calcium 6.6 L Total Bilirubin 0.5 Direct Bilirubin 0.2 AST 12 ALT < 6 Alkaline Phosphatase 139 H Total Protein 6.2 L Albumin 3.4 L 01/16/21 11:09 Hgb Hct Sodium Potassium Chloride Carbon Dioxide Anion Gap BUN Creatinine Estim Creat Clear Calc Estimated GFR POC Glucose 121 H Random Glucose Calcium Total Bilirubin Direct Bilirubin AST ALT Alkaline Phosphatase Total Protein Albumin Discharge Plan Discharge Patient Disposition: Home Health Service Referrals: [facility]nursing and landfill grader [Other] Min Jimenez MD [Physician] - (fu in 1 week) Physician,Unknown [Primary Care Provider] - Salome Don DO [Physician] - (follow up in 1 week) Discharge Medications: New folic acid 1 mg tablet 1 mg PO DAILY Qty: 30 RF: 0 Continued atorvastatin 80 mg tablet 80 mg PO DAILY RF: 0 cyanocobalamin (vitamin B-12) [Vitamin B-12] 100 mcg Tablet 1,000 mcg PO DAILY RF: 0 metoprolol succinate 100 mg tablet extended release 24 hr 100 mg PO BID RF: 0 amlodipine 2.5 mg tablet 2.5 mg PO DAILY RF: 0 allopurinol 100 mg tablet 100 mg PO DAILY RF: 0 clonidine HCl 0.2 mg Tablet 0.2 mg PO BEDTIME RF: 0 levothyroxine 50 mcg tablet 50 mcg PO DAILY RF: 0 omeprazole 20 mg capsule,delayed release(DR/EC) 20 mg PO DAILY RF: 0 loratadine [Claritin] 10 mg Tablet 10 mg PO DAILY PRN (Reason: Itching) RF: 0 cholecalciferol (vitamin D3) [Vitamin D3] 25 mcg (1,000 unit) Capsule 25 mcg PO DAILY RF: 0 Held aspirin 81 mg tablet,delayed release (DR/EC) 81 mg PO DAILY RF: 0 Hold Instructions: Resume on 01/19/21. Discharge Orders: Discharge Order (Routine); Ordered 01/16/21 Ordered By: Yadira Thomas Diet: advance to usual diet and low fat, low cholesterol Activity on Discharge: As tolerated Stand Alone Forms: Patient Portal Discharge page Other Ambulatory Orders: Basic Metabolic Panel Fasting (Routine) Timeframe: 20210119 Facility: [facility] - Location: Laboratory Ordered By: Yadira Thomas Complete Blood Count no Diff (Routine) Timeframe: 20210119 Facility: [facility] - Location: Laboratory Ordered By: Yadira Thomas Care Plan Goals: Patient came with encephalopathy toxic metabolic probably multifactorial related to uremia due to end-stage renal disease as well as add hyperkalemia: Patient subsequently received hemodialysis and is improved also received Kayexalate for hyperkalemia which is also improved. Hypernatremia also probably related to loose bowels due to kayxelate/uremia: Which also improved with dialysis. Patient had mild hypocalcemia which is probably related to secondary hypothyroidism probably related to advanced renal disease-as per Nephro PTH added and as well as a phosphorous level. Currently no need calcium replacement as per Nephrology. Anemia teresa: Probably anemia of chronic disease , fobt negative. Patient received blood transfusion: Hemoglobin is stable around 8-8.5 range Monitor CBC and BMP outpatient with PCP and further management as per PCP and Nephrology. Nephrology going to arrange outpatient hemodialysis Above management discussed with patient's son in detail length he understand and in agreement with the above plan. Health Concerns: As above. Plan of Treatment: As above. Assessment: As above.
[2021-01-16 17:02] LABS: Glucose, Whole Blood 94 mg/dL (60-115)
[2021-01-19 13:43] LABS: Calcium (PTHI) 6.8 mg/dL (8.6-10.3); PTHI 1071 pg/mL (14-64)
== END 2021-01-16 18:00 | disposition home health service (06) | DRG 673 ==
LOC: HO.ED 23:06 → HO.EDOVER 01-13 → HO.IMC 01-13 02:03
PROVIDERS: Internal Medicine Hypertension Specialist; Radiology Diagnostic Radiology; Admitting Provider Internal Medicine; Emergency Provider Internal Medicine; PCP Family Medicine; Visit Provider Internal Medicine
PROC: 0JH63XZ Insertion of Tunneled Vascular Access Device into Chest Subcutaneous Tissue and Fascia, Percutaneous Approach (ICD-10-PCS; principal; 2021-01-14 11:00)
DX: I12.0 Hypertensive chronic kidney disease with stage 5 chronic kidney disease or end stage renal disease (principal); G92 Toxic encephalopathy; N17.9 Acute kidney failure, unspecified; N18.5 Chronic kidney disease, stage 5; E87.2 Acidosis; E03.9 Hypothyroidism, unspecified; I25.10 Atherosclerotic heart disease of native coronary artery without angina pectoris; Z20.822 Contact with and (suspected) exposure to COVID-19; D63.1 Anemia in chronic kidney disease; E87.5 Hyperkalemia; E11.22 Type 2 diabetes mellitus with diabetic chronic kidney disease; Z95.2 Presence of prosthetic heart valve; Z95.1 Presence of aortocoronary bypass graft; Z79.82 Long term (current) use of aspirin; Z79.890 Hormone replacement therapy; Z79.899 Other long term (current) drug therapy
CPT/HCPCS: 36415; 36558; 71045; 76937; 80048; 80076; 81001; 82272; 82607; 82728; 82746; 82947; 83036; 83540; 83970; 84132; 85014; 85018; 85025; 85610; 85730; 86704; 86706; 86803; 86850; 86900; 86923; 87340; 87635; 90999; 93005; 96365; 96366; 96375; 97110; 97116; 97162; 99152; 99285; C1750; C1769; J0610; J0885; J1940; J2150; P9016

== ENCOUNTER → 2021-01-20 11:53 | Outpatient (BNVA) | payer MEDICARE, SELFPAY | PROVIDERS: PCP Family Medicine; Visit Provider Internal Medicine Gastroenterology | DX: Z13.89 Encounter for screening for other disorder (principal) | CPT/HCPCS: Q3014 ==

== ENCOUNTER 2021-02-26 14:12 | Outpatient (REF) | payer MEDICARE, SELFPAY ==
--- NOTE | ~2021-02-26 | FL_ITS ---
EXAMINATION: FL MODIFIED BARIUM SWALLOW CLINICAL INFORMATION: R13.10 - Dysphagia, unspecified COMPARISON: Barium swallow exam 08/28/2020. TECHNIQUE: Modified barium swallow examination is performed with imaging in the lateral view and the presence of the speech pathologist using a variety of barium consistencies. The exam is performed with fluoroscopic evaluation, videofluoroscopy, and some fluoroscopic spot views. Fluoroscopy time: 1.9 minutes DAP: 1.583 Gycm2 Fluoroscopic spot images: 2 FINDINGS: There is posterior lingual escape noted with thin barium and nectar consistency. This results in pooling of the contrast in the vallecula and piriform sinuses prior to swallowing. There is also some minor residual contrast within contrast in the piriform sinuses which clears on successive swallowing. There is no nasopharyngeal or laryngeal penetration. No aspiration. See speech pathologist report for further assessment and recommendation. FL/FL barium swallow modified IMPRESSION: 1. Posterior lingual escape noted with thin barium and nectar consistencies. 2. Minor residual contrast with thin barium in the piriform sinuses which clears on successive swallowing. 3. No aspiration or laryngeal penetration. 4. See speech pathologist report for further assessment and recommendation.
--- NOTE | 2021-02-26 16:50 | MHC.SL.IMP ---
Date of Plan of Treatment: 02/26/21 Onset of Symptoms/Illness: 08/30/20 Date Treatment Started: 02/26/21 Admitting Diagnosis: Modified Barium Swallow Study Fluoroscopic Evaluation of Swallowing Function CPT Code 30332 Evaluation Year: 2020 Reason for Study: Dysphagia Referring Physician: Dr. Adriane Higuera MD Evaluating Clinician: Nanette Reyes Study Number: 1 Patient Name: MRN: Status: Outpatient, Ambulatory/Assisted Age: 81 Gender: Male MEDICAL HISTORY: Primary (admitting) Diagnosis: Renal Failure, Chronic/End Stage-dialysis (N18.6, Z99.2) Year of Onset or Diagnosis: 2020 Comorbidities: Congestive Heart Failure (I50.9) Coronary Artery Disease (I25.10) Hypertension (I10) Gastroesophageal Reflux (K21.9) Diabetes, Insulin Dependent (E10.9) Chronic Obstructive Pulmonary Disease (J44.9) Hyperlipidemia (E78.5) Diverticulosis PVD Thyroid Disease Left Hemiplegia Current Medical Treatment(s): Chronic Dialysis Past Medical History: Cerebrovascular Accident Hemorrhagic Stroke (Intracerebral) (I61.9) Date of Onset: 2011 Prostate Cancer (C61) Current Medications: Please see in pt chart Current (pre-evaluation) Intake/Diet: Route: PO Diet Grade: Regular Liquid Consistencies: Thin Pre-Study Functional Oral Intake Scale (FOIS): 7- Total oral intake with no restrictions Pain: None reported at time of study Primary Speech & Language Diagnosis: Secondary Speech & Language Diagnosis: Reason for Today's Visit: 99434 Modified Barium Swallow Study Comments: Pre-evaluation Dietary Consistencies: Regular Pre-evaluation Liquid Consistency: Thin Pre-evaluation Medication Administration: Whole with Liquid Medical History: Acid Reflux Cancer: other COPD Heart Attack Stroke Comments: [facility] Fall Risk Assessment Score: Oral Motor Exam Facial Symmetry: Symmetrical Facial Movement: Oral-Facial Facial Miscellaneous Observations: Mouth Occlusion: Normal Oral-Facial Teeth Characteristics: Dentures Oral-Facial Teeth Miscellaneous Observation: Oral-Facial Lip Pucker Description: Normal Oral-Facial Smile (Lips) Description: Normal Oral-Facial Puff Cheeks Description: Normal Oral-Facial Lip Miscellaneous Comment: Tongue Size: Normal Tongue Frenum Length: Normal Tongue Excursion Description: Normal Tongue Range of Movement Description: Normal Tongue Speed of Movement Description: Normal Tongue Strength of Movement (against opposing pressure): Normal Tongue Movement Characteristics: Normal/Absent Tongue Movement Miscellaneous Observation: Oral Expression Ability: No Impairment Is patient able to manage secretions?: Yes Is patient able to produce volitional cough?: Yes Food and Liquid Trials: Oral Impairment: Lip Closure: 1=Interlabial escape; no progression to anterior tip Oral Impairment: Tongue Control During Bolus Hold: 2=Posterior escape of less than half of bolus Oral Impairment: Bolus Preparation/Mastication: 1=Slow prolonged chewing/mashing with complete re-collection Oral Impairment: Bolus Transport/Lingual Motion: 0=Brisk tongue motion Oral Impairment: Oral Residue: 2=Residue collection on oral structures Oral Impairment:Initiation of Pharyngeal Swallow: 3=Bolus head in pyriforms Pharyngeal Impairment: Soft Palate Elevation: 0=No bolus between soft palate (SP)/pharyngeal wall (PW) Pharyngeal Impairment: Laryngeal Elevation: 1=Partial thyroid cartilage/arytenoids to epiglottic petiole movement Pharyngeal Impairment: Anterior Hyoid Excursion: 0=Complete anterior movement Pharyngeal Impairment: Epiglottic Movement: 0=Complete inversion Pharyngeal Impairment: Laryngeal Vestibular Closure:: 0=Complete: no air/contrast in laryngeal vestibule Pharyngeal Impairment: Pharyngeal Stripping Wave: 0=Present: complete Pharyngeal Impairment: Pharyngeal Contraction: Did not test Pharyngeal Impairment: Pharyngoesophageal Segment Openin=Partial distention/partial duration: partial obstruction of flow Pharyngeal Impairment: Tongue Base (TB) Retraction: 1=Trace column of contrast/air between TB and posterior PW Pharyngeal Impairment: Pharyngeal Residue: 2=Collection of residue within or on pharyngeal structures Pharyngeal Impairment: Esophageal Clearance Upright Position: Did not test Impressions and Recommendations Clinical Observations: Time-out: performed at 2:42 Evaluation Start: 2:30; Stop: 2:35 Patient Positioning: Seated 70-90 degrees Viewing Planes: LATERAL ONLY Contrast: MBSImP? Standardized Protocol using commercially prepared, standardized Barium viscosities, including: Varibar? THIN LIQUID (40% w/v, <15 cps) , Varibar? NECTAR (40% w/v, <150-450 cps) , 1/2 Shortbread Cookie (1 x1 x.25 ) MBSImP ID: [id number] MBSImP Results: Lip closure for intraoral bolus containment resulted in interlabial escape, without progression to the anterior lip. Tongue control during bolus hold allowed bolus escape to the lateral buccal cavity/floor of mouth. Bolus preparation and mastication resulted in timely and efficient chewing and mashing. Bolus transport/lingual motion demonstrated delayed initiation of tongue motion. Oral residue was a collection on oral structures. Initiation of the pharyngeal swallow occurred when the bolus head was in the pyriform sinuses. Soft palate elevation resulted in no bolus between the soft palate and the pharyngeal wall. Laryngeal elevation demonstrated complete superior movement of the thyroid cartilage with complete approximation of the arytenoids to the epiglottic petiole. Anterior hyoid excursion demonstrated complete anterior movement. Epiglottic movement resulted in complete inversion. Laryngeal vestibular closure was incomplete, with a narrow column of air/contrast noted within the laryngeal vestibule at the height of the swallow. Pharyngeal stripping wave was present and complete. Pharyngeal contraction could not be determined due to logistical reasons not related to physiologic impairment. Pharyngoesophageal segment opening demonstrated partial distension/partial duration, with partial obstruction of bolus flow. Tongue base retraction allowed a trace column of contrast or air between the retracted tongue base and the posterior pharyngeal wall. Pharyngeal residue was a collection of residue within or on pharyngeal structures. Esophageal clearance in the upright position could not be assessed due to logistical reasons not related to physiologic impairment Oral Impairment Score: 7 Pharyngeal Impairment Score: 4 (absence of score, component 13) Esophageal Impairment Score: --- (absence of score, component 17) Laryngeal Penetration and Aspiration: Neither penetration nor aspiration was observed in today's study with Cookie, Magdalena-thick, Thin. ASSESSMENT: This exam was conducted by speech language pathologist and radiologist with patient seated at 90 degrees for lateral view only. Patient trialed the following liquid and solid consistencies: -5 mL thin liquid barium -thin liquid barium cup sip -nectar thick liquid barium cup sip -pureed solid (applesauce mixed with barium paste) -ground solid (chicken salad mixed with barium paste) -regular solid (Rema Doone cookie coated in barium paste) The patients performance in today's study indicated impairment in the following components of swallowing physiology: ORAL PHASE: Poor lingual control of bolus during bolus hold Initiation of pharyngeal swallow at level of pyriform sinuses Moderate oral residue which cleared with subsequent swallow PHARYNGEAL PHASE: Partial distension/duration/obstruction of flow through PES Moderate pharyngeal residue which cleared with additional swallow and/or liquid wash. No aspiration or penetration evident on this exam. Pharyngeal swallow trigger was delayed and reduced tongue control during bolus hold resulting in posterior escape of les than half the bolus when presented with thin and nectar thick liquids. Moderate oral and pharyngeal residue visualized which cleared with additional swallow and/or liquid wash. Patient history with the following compensatory strategies is unknown. When employed during today's study, these strategies improved swallowing function: Liquid Wash decreased Oral Residue, Pharyngeal Residue Liquid Intake Recommendation: Thin Liquid Intake Strategies: Unrestricted Dietary Recommendations: Regular Medication Administration: Whole with Liquid Compensatory Strategies Recommended: Sitting Upright (90 deg) Liquids from Cup Liquids from Straw Small Bites and Sips Alternate Liquids/Solids Supervision during eating and or drinking: None Needed Recommended Treatments: Recommendation for Speech Therapy: NA:Typical Evaluation It is important to note that MBSS objective studies are snapshots in time and patient function might vary with factors such as time of day or concomitant medical conditions. For this reason, the final treatment plan for this patient should rest with their medical care team. Additional recommendations should be considered with the totality of the patient in mind. Tax Audit Manager Clinician/Clinical Fellow: Yes: Nanette Reyes M.A., [facility] [employer] Supervisory Statement: Speech Language Pathologist:
== END 2021-02-26 14:13 | disposition home or self-care (01) ==
LOC: HO.XRAY 14:12
PROVIDERS: Visit Provider Family Medicine
DX: R13.10 Dysphagia, unspecified (principal)
CPT/HCPCS: 74230; 92611

== ENCOUNTER 2021-05-20 14:54 | Outpatient (REF) | payer MEDICARE, SELFPAY ==
--- NOTE | 2021-05-21 09:04 | MHC.AU.P13 ---
Hearing Instrument Problem Date of Visit: 05/21/21 Right Ear: Armature Balancer: Phonak Model: Moonbasaeo M70-R Serial Number: [id number] Repair Warranty: 11/15/2023 Battery Size: Rechargeable Color: P1 Wood Window And Door Craftsman: 1M Type of Mold: Phonak SlimTip #[id number] DEEPIKA EXP 12/17/2020 Type of Wax Guard: CERUSTOP Dispensed By: [facility] [place] Left Ear: Armature Balancer: Phonak Model: Moonbasaeo M70-R Serial Number: [id number] Repair Warranty: 11/15/2023 Battery Size: Rechargeable Color: P1 Wood Window And Door Craftsman: 1M Type of Mold: Phonak SlimTip #[id number] Type of Wax Guard: CERUSTOP Dispensed By: [facility] [place] Follow-Up Summary: Left aid dropped off - not charging - sent to [employer] for in warranty repair. Recommendations: Recommendations: Patient will be contacted when materials have arrived. Signature: Provider:
== END 2021-05-20 14:55 | disposition home or self-care (01) ==
LOC: HO.HAP 14:54
PROVIDERS: Visit Provider Family Medicine
DX: Z13.89 Encounter for screening for other disorder (principal)

== ENCOUNTER 2021-07-02 12:28 | Outpatient (REF) | payer MEDICARE, SELFPAY | END 2021-07-02 12:29 | disposition home or self-care (01) | LOC: HO.HAP 12:28 | PROVIDERS: Visit Provider Family Medicine | DX: Z13.89 Encounter for screening for other disorder (principal) ==

== ENCOUNTER 2021-08-06 12:33 | Outpatient (REF) | payer MEDICARE, SELFPAY | END 2021-08-06 12:34 | disposition home or self-care (01) | LOC: HO.HAP 12:33 | PROVIDERS: Visit Provider Family Medicine | DX: Z13.89 Encounter for screening for other disorder (principal) ==

== ENCOUNTER 2021-09-15 12:23 | Outpatient (REF) | payer MEDICARE, SELFPAY | END 2021-09-15 12:24 | disposition home or self-care (01) | LOC: HO.HAP 12:23 | PROVIDERS: Visit Provider Family Medicine | DX: Z13.89 Encounter for screening for other disorder (principal) ==

== ENCOUNTER → 2023-01-03 08:48 | Outpatient (BNVA) | payer OTHER, SELFPAY | PROVIDERS: PCP Family Medicine; Visit Provider Internal Medicine Gastroenterology | DX: R13.10 Dysphagia, unspecified (principal); R09.89 Other specified symptoms and signs involving the circulatory and respiratory systems | CPT/HCPCS: 99212 ==

== ENCOUNTER 2023-03-01 09:53 | Outpatient (REF) | payer OTHER, SELFPAY ==
--- NOTE | ~2023-03-01 | FL_ITS ---
EXAMINATION: FL BARIUM SWALLOW CLINICAL INFORMATION: Dysphagia COMPARISON: Previous exam February 2021 TECHNIQUE: Barium swallow examination is performed using fluoroscopic evaluation in addition to multiple fluoroscopic spot views. The patient is imaged both upright and prone and using both thick and thin sulfate along with effervescent granules. Barium tablet was also administered. Fluoroscopy time: 1.4 minutes DAP: 12.9 Gycm2 Images: 57 FINDINGS: The swallowing mechanism is normal. No aspiration or penetration. There is abnormal esophageal motility with tertiary contractions. 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 There is stasis of the barium tablet which did not pass into the stomach. No gastroesophageal reflux was observed however exam was difficult due to difficulty positioning the patient prone/JOSEPH. No hernia seen. There is question of mild fold thickening of the stomach and duodenum, possibly gastritis or duodenitis due to hyperacidity. FL/FL barium swallow IMPRESSION: Distal esophageal stricture and stasis of the barium tablet. Abnormal esophageal motility with tertiary contractions.
== END 2023-03-01 09:54 | disposition home or self-care (01) ==
LOC: HO.XRAY 09:53
PROVIDERS: PCP Family Medicine; Visit Provider Internal Medicine Gastroenterology
DX: R13.10 Dysphagia, unspecified (principal)
CPT/HCPCS: 74220

== ENCOUNTER 2023-06-10 08:46 | Outpatient (AMB) | payer OTHER, SELFPAY ==
[2023-06-10 08:54] VITALS: BP 122/57; PULSE 88; BMI 26.4
--- NOTE | 2023-06-10 08:54 | MHC.OFFVIS ---
Intake Vital Signs 06/10/23 08:54 Height 5 ft 9 in Weight 178 lb 9.191 oz BMI 26.4 BP 122/57 L Blood Pressure Location Rt brachial Position Sitting Pulse 88 Intake Visit Reasons: 4 month follow up Intake Note: Bi presents in the office as a 4 month follow up. CC: Last time he was here he was ordered a ba swallow and found out he had a narrow esophagus and that he may need a EGD w/ dil. He also has heart issues so maybe that is why it has not been done yet. Outreach Associate Required: Yes Outreach Associate Name: Luci - [employer] Allergies No Known Allergies Allergy (Mild, Verified 06/10/23 08:54) NONE HPI 4 month follow up HPI Details RECAP: Had been seen for dysphagia 2020 he had been having choking fits for a long time feels like a lot of water coming up no pain in abdomen or esophagus, chest on PPI, thinks he had egd and dilation ? 10 yrs ago and was told he would need another one possibly in future BA swallow-08/2020-hold up of tab at [facility], Moderate esophageal dysmotility with small hiatal hernia. I did EGD with dilation -- 12/2020 which he felt helped but he was still having some nasal regurg MBS done with poor lingual phase so seen by SELAM and given strategies to help, no restrictions on diet Ba swallow 02/2023---tertiary contractions, Distal esophageal stricture and stasis of the barium tablet. INTERIM: He is still having issues with choking and dysphagia, with fluids or solids He denies weight loss denies abdominal pain no chest pain EXAM: GENERAL: The patient is well developed and nontoxic. VITAL SIGNS:see workflow HEENT: Nonicteric sclerae, PERRLA, EOMI. Oropharynx clear. Moist mucous membranes. Conjunctivae appear well perfused. No thyroid mass. CHEST: Chest wall is nontender. HEART: Regular rate and rhythm without ESM at aortic area LUNGS: Clear to auscultation bilaterally. ABDOMEN: Soft, positive bowel sounds, nontender, no organomegaly.no flank tenderness SKIN: No rash, no excessive bruising, petechiae, or purpura. NEUROLOGIC: Cranial nerves II-XII intact without motor/sensory deficit psych- nml affect A?P: 1/ Ongoing issues with dysphagia and choking, possible stricture per Ba swallow, was referred for manometry but never got it PLAN: 1/ re refer for motility study to [facility] r/o achalasia 2/ repeat EGD with dilation ?? PFSH Medical History COPD (chronic obstructive pulmonary disease) COVID-19 vaccine administered Dialysis patient Elevated cholesterol GERD (gastroesophageal reflux disease) Heart attack HTN (hypertension) Prostate CA PVD (peripheral vascular disease) Renal failure Thyroid disease Surgical History H/O colonoscopy History of incision and drainage Hx of aortic valve replacement Hx of CABG Hx of cataract surgery Hx of cystoscopy Social History Household Members: Spouse Housing: Apartment Are you a primary family member caretaker to a significant other at home: No Do you presently have visiting nurse or other home services: No Alcohol intake: never service: No Current occupational status: disabled Physical Exam Vital Signs: BMI result Body Mass Index 26.4 Assessment & Plan Assessment & Plan (1) Dysphagia: Code(s): R13.10 - Dysphagia, unspecified Coding Level of Care Code Est Pt Level 3 (22757) Diagnoses Dysphagia R13.10
== END 2023-06-10 09:14 | disposition home or self-care (01) ==
PROVIDERS: Visit Provider Internal Medicine Gastroenterology
DX: R13.10 Dysphagia, unspecified (principal)
CPT/HCPCS: 99213

== ENCOUNTER → 2023-06-10 08:46 | Outpatient (BNVA) | payer OTHER, SELFPAY | PROVIDERS: Visit Provider Internal Medicine Gastroenterology | DX: R13.10 Dysphagia, unspecified (principal) | CPT/HCPCS: 99212 ==

== ENCOUNTER 2023-06-28 12:17 | Day surgery (SDC) | payer OTHER, SELFPAY ==
[2023-06-24 10:46] VITALS: BMI 26.3
--- NOTE | 2023-06-27 12:20 | P.CONAN_ITS ---
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 Follows [facility] vascular. Now has thoracic aortic aneurysm @ 6cm, but recommend conservative/observation due to extensive vascular hx. Follows cardiology yearly. Stable at 10/2022 office visit. [facility] Active Problems Active Problems: All Active Problems (Updated 01/20/21 @ 11:55 by JENNIE Khan) Anemia (Acute) CKD (chronic kidney disease) stage 5, GFR less than 15 ml/min (Acute) Macrocytic anemia (Acute) Encephalopathy (Acute) Uremia (Acute) Acute on chronic kidney failure (Acute) Acute hyperkalemia (Acute) Dysphagia (Acute) Past Medical History Medical History Dialysis patient COVID-19 vaccine administered Renal failure COPD (chronic obstructive pulmonary disease) Thyroid disease GERD (gastroesophageal reflux disease) Elevated cholesterol PVD (peripheral vascular disease) Prostate CA HTN (hypertension) Heart attack Surgical History Surgical History Hx of cataract surgery Hx of cystoscopy History of incision and drainage H/O colonoscopy Hx of aortic valve replacement Hx of CABG Social History Social History Household Members: Spouse Housing: Apartment Are you a primary insurance healthcare representative to a significant other at home: No Do you presently have visiting nurse or other home services: No Alcohol intake: never Advance Directives: No Advance Directives Information Provided: Yes service: No Current occupational status: disabled Meds Allergies Allergy/AdvReac Type Severity Reaction Status Date / Time No Known Allergies Allergy Mild NONE Verified 06/10/23 08:54 Home Medications Medication Instructions Recorded Confirmed Last Taken Type allopurinol 100 mg tablet 100 mg PO DAILY 12/30/20 06/28/23 06/28/23 History amlodipine 2.5 mg tablet 2.5 mg PO DAILY 12/30/20 06/28/23 06/28/23 History aspirin 81 mg tablet,delayed 81 mg PO DAILY 12/30/20 06/28/2323 History release atorvastatin 80 mg tablet 80 mg PO DAILY 12/30/20 06/28/23 06/28/23 History cholecalciferol (vitamin D3) 25 25 mcg PO DAILY 12/30/20 06/28/23 06/28/23 History mcg (1,000 unit) capsule (Vitamin D3) clonidine HCl 0.2 mg tablet 0.2 mg PO BEDTIME 12/30/20 06/28/23 06/28/23 History levothyroxine 50 mcg tablet 50 mcg PO DAILY 12/30/20 06/28/23 06/28/23 History loratadine 10 mg tablet (Claritin) 10 mg PO DAILY PRN Itching 12/30/20 06/28/23 06/28/23 History metoprolol succinate 100 mg 100 mg PO BID 12/30/20 06/28/23 06/28/23 History tablet,extended release 24 hr omeprazole 20 mg capsule,delayed 20 mg PO DAILY 12/30/20 06/28/23 06/28/23 History release cyanocobalamin (vitamin B-12) 1,000 mcg PO QAM 06/10/23 06/28/23 06/28/23 History 1,000 mcg tablet cyclosporine 0.05 % eye drops 1 drp ophthalmic (eye) BID 06/10/23 06/28/23 06/28/23 History (Restasis MultiDose) ipratropium bromide 21 mcg (0.03 2 spray intranasal BID 06/10/23 06/28/23 06/28/23 History %) nasal spray ondansetron HCl 4 mg tablet 4 mg PO Q8H PRN Nausea And Vomiting 06/10/23 06/28/23 06/28/23 History Exam Exam Date and Time: June 27, 2023 1220 Height,Weight and Vital Signs: Height 5 ft 9 in Weight 80.739 kg Assessment and Plan Assessment Anesthesia Assessment: Chart Reviewed Documented by User: Ruslan Cárdenas MD 06/28/23 14:51 [facility] Past Medical History Medical History Dialysis patient COVID-19 vaccine administered Renal failure COPD (chronic obstructive pulmonary disease) Thyroid disease GERD (gastroesophageal reflux disease) Elevated cholesterol PVD (peripheral vascular disease) Prostate CA HTN (hypertension) Heart attack Family History Family history of problems with anesthesia: No Surgical History Surgical History Hx of cataract surgery Hx of cystoscopy History of incision and drainage H/O colonoscopy Hx of aortic valve replacement Hx of CABG History of Problems with Anesthesia: No Social History Social History Household Members: Spouse Housing: Apartment Are you a primary insurance healthcare representative to a significant other at home: No Do you presently have visiting nurse or other home services: No Alcohol intake: never Advance Directives: No Advance Directives Information Provided: Yes service: No Current occupational status: disabled Meds Allergies Allergy/AdvReac Type Severity Reaction Status Date / Time No Known Allergies Allergy Mild NONE Verified 06/10/23 08:54 Home Medications Medication Instructions Recorded Confirmed Last Taken Type allopurinol 100 mg tablet 100 mg PO DAILY 12/30/20 06/28/23 06/28/23 History amlodipine 2.5 mg tablet 2.5 mg PO DAILY 12/30/20 06/28/23 06/28/23 History aspirin 81 mg tablet,delayed 81 mg PO DAILY 12/30/20 06/28/23 06/28/23 History release atorvastatin 80 mg tablet 80 mg PO DAILY 12/30/20 06/28/23 06/28/23 History cholecalciferol (vitamin D3) 25 25 mcg PO DAILY 12/30/20 06/28/23 06/28/23 History mcg (1,000 unit) capsule (Vitamin D3) clonidine HCl 0.2 mg tablet 0.2 mg PO BEDTIME 12/30/20 06/28/23 06/28/23 History levothyroxine 50 mcg tablet 50 mcg PO DAILY 12/30/20 06/28/23 06/28/23 History loratadine 10 mg tablet (Claritin) 10 mg PO DAILY PRN Itching 12/30/20 06/28/23 06/28/23 History metoprolol succinate 100 mg 100 mg PO BID 12/30/20 06/28/23 06/28/23 History tablet,extended release 24 hr omeprazole 20 mg capsule,delayed 20 mg PO DAILY 12/30/20 06/28/23 06/28/23 History release cyanocobalamin (vitamin B-12) 1,000 mcg PO QAM 06/10/23 06/28/23 06/28/23 History 1,000 mcg tablet cyclosporine 0.05 % eye drops 1 drp ophthalmic (eye) BID 06/10/23 06/28/23 06/28/23 History (Restasis MultiDose) ipratropium bromide 21 mcg (0.03 2 spray intranasal BID 06/10/23 06/28/23 06/28/23 History %) nasal spray ondansetron HCl 4 mg tablet 4 mg PO Q8H PRN Nausea And Vomiting 06/10/23 06/28/23 06/28/23 History Exam Airway Mallampati Class: IV TM Dist: >3cm Neck ROM: Full Denture: Upper and Lower Assessment and Plan Assessment Anesthesia Assessment: Anesthesia Plan Discussed Final Anesthetic Review Family History of Problems with Anesthesia: No History of Problems with Anesthesia: No NPO: Yes ASA Class: III Final Preanesthetic Review: No Changes in Pt Med Stat, Meds/Allgs Chart Reviewed, Consent Obtained/Reviewed and Anes Risks/Benef Reviewed Patient Risk: High Procedure Risk: Low Anesthetic Plan Anesthetic Plan: MAC: Disposition: Standard PACU
--- NOTE | 2023-06-28 13:16 | P.HPSUR_ITS ---
Pre-Procedural Eval Section A Date of Service: 06/28/23 Section B Chief Complaint: Dysphagia, unspecified Relevant Family History (Specify if Yes): No Relevant Social History: None Present Medications: see Short Stay Collaborative assessment Medical History: Significant History (COPD (chronic obstructive pulmonary disease) COVID-19 vaccine administered Dialysis patient Elevated cholesterol GERD (gastroesophageal reflux disease) Heart attack HTN (hypertension) Prostate CA PVD (peripheral vascular disease) Renal failure Thyroid disease) History of Previous Operations: Relevant previous surgery/procedure and date(s) (H/O colonoscopy History of incision and drainage Hx of aortic valve replacement Hx of CABG Hx of cataract surgery Hx of cystoscopy) Allergies: Allergies Allergy/AdvReac Type Severity Reaction Status Date / Time No Known Allergies Allergy Mild NONE Verified 06/10/23 08:54 Review of Systems Sugical H&P ROS: Negative: Constitution, Cardiovascular, Respiratory, Neurological, Psychiatric, Hem-Onc, Allergic/Immunologic, Gastrointestinal, Gen itourinary, Musculoskeletal, Integumentary, Endocrine and Eyes/Ears/Nose/Throat Exam Surgical H&P Exam: Normal: HEENT, Normal: Heart, Normal: Lungs, Normal: Extremities, Normal: Abdomen, Normal: Skin and Normal: Neurological Plan Diagnosis/Plan: Unchanged I have reviewed the history and physical and performed a pertinent physical examination on my patient. No changes have occurred unless specified. Time Spent With Patient Time: Total time managing care of this patient today ____ minutes.
[2023-06-28 13:29] VITALS: BP 123/76; PULSE 75; RESP 18; TEMP 36.5; O2SAT 96
[2023-06-28] MEDS: 0.9 % Sodium Chloride 1,000 ML 50 ML IVCONT (13:32)
[2023-06-28 14:05] LABS: Anion Gap 16 (12-20); Carbon Dioxide 32 mmol/L (22-29); Chloride 98 mmol/L (96-108); Potassium 4.6 mmol/L (3.3-5.1); Sodium 141 mmol/L (135-145)
--- NOTE | 2023-06-28 14:09 | W.PM.OPN ---
Operative Note Operative Note Date of Service: 06/28/23 Narrative: Procedure Description: EGD Indication: dysphagia Anesthesia: MAC FLEXIBLE TRANSORAL UPPER GASTROINTESTINAL ENDOSCOPY UPPER ENDOSCOPY Consent: Indications for the procedure and potential complications of bleeding, perforation, reaction to medications and missed diagnosis were discussed with the patient and informed consent was obtained. Instrument: Olympus GIF H 190 J mid size upper endoscope Monitoring: Vital signs and clinical assessment, continuous EKG monitoring, Pulse oximetry, Carbon Dioxide monitoring and blood pressure monitoring were done throughout the procedure. Procedure: The patient was placed in the left lateral decubitis position and pre-procedure medications were administered and a bite block was placed. The endoscope was inserted into the mouth and advanced under direct vision to the third part of duodenum. A careful inspection was made as the upper endoscope was withdrawn including a retroflexed examination of the proximal stomach; Findings and interventions are described below. Findings: Larynx:normal Esophagus: GE junction at 41 cm, diaphragm hiatus at 43 cm, consistent with 2 cm sliding hiatal hernia. 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 Grade 2 flap valve on retroflexed examination of the cardia. Duodenum: Normal bulb and descending duodenum, Intervention: Biopsies as noted above, wire guided dilation Impression/Findings: hiatal hernia GAVE barretts esophagus PLAN: magic mouthwash went cont with PPI, might increase dose f/u [facility] for manometry
[2023-06-28 14:40] VITALS: BP 88/38; PULSE 69; RESP 16; TEMP 36.1; O2SAT 94
[2023-06-28 14:55] VITALS: BP 108/52; PULSE 69; RESP 16; O2SAT 94
[2023-06-28 15:10] VITALS: BP 113/54; PULSE 66; RESP 16; O2SAT 92
[2023-06-28 15:25] VITALS: BP 124/57; PULSE 68; RESP 16; TEMP 36.1; O2SAT 96
[2023-06-28 15:40] VITALS: BP 122/60; PULSE 67; RESP 16; TEMP 36.3; O2SAT 98
== END 2023-06-28 16:22 | disposition home or self-care (01) ==
PROVIDERS: Nurse Practitioner; PCP Family Medicine; Visit Provider Internal Medicine Gastroenterology
PROC: (CPT 43248; principal; 2023-06-28 14:30)
DX: R13.10 Dysphagia, unspecified (principal); K22.70 Barrett's esophagus without dysplasia; K31.819 Angiodysplasia of stomach and duodenum without bleeding; K21.9 Gastro-esophageal reflux disease without esophagitis; K44.9 Diaphragmatic hernia without obstruction or gangrene; I25.2 Old myocardial infarction; Z95.1 Presence of aortocoronary bypass graft; Z95.2 Presence of prosthetic heart valve; I12.0 Hypertensive chronic kidney disease with stage 5 chronic kidney disease or end stage renal disease; N18.5 Chronic kidney disease, stage 5; Z99.2 Dependence on renal dialysis; D64.9 Anemia, unspecified; E03.9 Hypothyroidism, unspecified; J44.9 Chronic obstructive pulmonary disease, unspecified; E78.00 Pure hypercholesterolemia, unspecified; I73.9 Peripheral vascular disease, unspecified; Z79.899 Other long term (current) drug therapy; Z98.890 Other specified postprocedural states; Z79.82 Long term (current) use of aspirin
CPT/HCPCS: 43248; 43239; 36415; 80051; 88305; C1769

== ENCOUNTER → 2023-06-28 12:17 | Outpatient (BNV) | payer OTHER, SELFPAY | PROVIDERS: PCP Family Medicine; Visit Provider Internal Medicine Gastroenterology | DX: R13.10 Dysphagia, unspecified (principal); K44.9 Diaphragmatic hernia without obstruction or gangrene; K22.70 Barrett's esophagus without dysplasia; K31.811 Angiodysplasia of stomach and duodenum with bleeding | CPT/HCPCS: 43239; 43245 ==

== ENCOUNTER 2023-08-29 08:49 | Outpatient (AMB) | payer OTHER, SELFPAY ==
--- NOTE | 2023-08-29 08:52 | MHC.OFFVIS ---
Intake Vital Signs 08/29/23 08:53 Height 5 ft 9 in Weight 187 lb 13.341 oz BMI 27.7 BP 114/57 L Blood Pressure Location Rt brachial Position Sitting Pulse 95 Intake Visit Reasons: s/p egd dil Intake Note: Patient presents to in office visit today in follow up of EGD with dilation. CC: Patient underwent EGD with dilation on 06/28/[address] Tafoya. Patient reports doing well since after procedure and denies any new concerns today. Inspector Circuitry Negative Required: Yes Inspector Circuitry Negative Name: COUNCILPERSON Accompanied by: COUNCILPERSON Allergies No Known Allergies Allergy (Mild, Verified 06/10/23 08:54) NONE HPI s/p egd dil HPI Details 83 yr old m with CKD here for f/u RECAP: Had been seen for dysphagia 2020 he had been having choking fits for a long time feels like a lot of water coming up no pain in abdomen or esophagus, chest on PPI, thinks he had egd and dilation ? 10 yrs ago and was told he would need another one possibly in future BA swallow-08/2020-hold up of tab at [facility], Moderate esophageal dysmotility with small hiatal hernia. I did EGD with dilation -- 12/2020 which he felt helped but he was still having some nasal regurg MBS done with poor lingual phase so seen by SELAM and given strategies to help, no restrictions on diet Ba swallow 02/2023---tertiary contractions, Distal esophageal stricture and stasis of the barium tablet. EGD: 06/2023-- savary dilation 17 mm, GAVe noted, hiatal hernia INTERIM: He is happy swallowing is back to normal, no issues with choking no melena or rectal bleeding He denies weight loss denies abdominal pain no chest pain EXAM: GENERAL: The patient is well developed and nontoxic. VITAL SIGNS:see workflow HEENT: Nonicteric sclerae, PERRLA, EOMI. Oropharynx clear. Moist mucous membranes. Conjunctivae appear well perfused. No thyroid mass. CHEST: Chest wall is nontender. HEART: Regular rate and rhythm without ESM at aortic area LUNGS: Clear to auscultation bilaterally. ABDOMEN: Soft, positive bowel sounds, nontender, no organomegaly.no flank tenderness SKIN: No rash, no excessive bruising, petechiae, or purpura. NEUROLOGIC: Cranial nerves II-XII intact without motor/sensory deficit psych- nml affect A?P: 1/ Dysphagia, resolved with dilation, and PPI, prob GERD related PLAN: 1/ cont with PPI, should be on MV and Vit D supplement which he is taking -periodic check on labs ncl mag, ferritin, b12 2/ repeat EGD with dilation prn PFSH Medical History Dialysis patient COVID-19 vaccine administered Renal failure COPD (chronic obstructive pulmonary disease) Thyroid disease GERD (gastroesophageal reflux disease) Elevated cholesterol PVD (peripheral vascular disease) Prostate CA HTN (hypertension) Heart attack Surgical History Hx of cataract surgery Hx of cystoscopy History of incision and drainage H/O colonoscopy Hx of aortic valve replacement Hx of CABG Social History Household Members: Spouse Housing: Apartment Are you a primary care connector to a significant other at home: No Do you presently have visiting nurse or other home services: No Alcohol intake: never service: No Current occupational status: disabled Physical Exam Vital Signs: BMI result Body Mass Index 27.7 Assessment & Plan Assessment & Plan (1) Dysphagia: Code(s): R13.10 - Dysphagia, unspecified Coding Level of Care Code Est Pt Level 3 (83053) Diagnoses Dysphagia R13.10
[2023-08-29 08:53] VITALS: BP 114/57; PULSE 95; BMI 27.7
== END 2023-08-29 09:04 | disposition home or self-care (01) ==
PROVIDERS: PCP Family Medicine; Visit Provider Internal Medicine Gastroenterology
DX: R13.10 Dysphagia, unspecified (principal)
CPT/HCPCS: 99213

== ENCOUNTER → 2023-08-29 08:49 | Outpatient (BNVA) | payer OTHER, SELFPAY | PROVIDERS: PCP Family Medicine; Visit Provider Internal Medicine Gastroenterology | DX: R13.10 Dysphagia, unspecified (principal) | CPT/HCPCS: 99212 ==

== ENCOUNTER 2024-05-30 19:48 | Inpatient (IN) | payer OTHER, SELFPAY ==
[2024-05-30] VITALS (12 sets, daily range): BP systolic 76–107; BP diastolic 34–72; PULSE 71–120; RESP 16–22; TEMP 36.6–39.1; O2SAT 87–100; BMI 25.0
--- NOTE | 2024-05-30 | ECG_ITS ---
Test Reason : SEPSIS Blood Pressure : / mmHG Vent. Rate : 101 BPM Atrial Rate : 101 BPM P-R Int : 214 ms QRS Dur : 080 ms QT Int : 374 ms P-R-T Axes : 031 082 069 degrees QTc Int : 484 ms Sinus tachycardia with 1st degree A-V block Otherwise normal ECG When compared with ECG of 12-JAN-2021 18:44, Vent. rate has increased BY 49 BPM QT has lengthened Referred By: Generic ED Physician Electronically Signed By:AMERICA KNIGHT
--- NOTE | ~2024-05-30 | XR_ITS ---
EXAMINATION: XR CHEST CLINICAL INFORMATION: SOB COMPARISON: 01/12/2021 TECHNIQUE: Frontal view of the chest was obtained. FINDINGS: Status post median sternotomy and CABG. Prominent aortic arch appears overall stable. There are low lung volumes. Streaky opacities in the lung bases with suspected left small effusion. No pneumothorax. XR/XR chest 1V IMPRESSION: Low lung volumes. Streaky opacities in lung bases may reflect atelectasis versus infiltrate. Suspect small left effusion. Electronically signed by: Theodore Alves MD 05/30/2024 10:04 PM EDT
--- NOTE | ~2024-05-30 | CT_ITS ---
EXAMINATION: CT ABDOMEN AND PELVIS WITHOUT CONTRAST CLINICAL INFORMATION: Evaluation no sources for bacteremia COMPARISON: December 13, 2014 TECHNIQUE: Multidetector volumetric imaging was performed from the superior aspect of the liver through the pubic symphysis. Sagittal and coronal reformatted images were obtained on the technologist's workstation. This CT examination was performed using dose optimization techniques as appropriate, variously including the following: *Automated exposure control *Adjustment of mA and/or kV according to patient size (this includes techniques or standardized protocols for targeted exams where dose is matched to indication/reason for exam; i.e. extremities or head) *Use of iterative reconstruction technique DLP: 553 mGy-cm FINDINGS: LUNG BASES: There are small bilateral pleural effusions. LIVER, GALLBLADDER, AND BILIARY TREE: The liver is normal in size, shape, and attenuation. No focal hepatic lesion or biliary ductal dilatation is present. There is calcified granuloma in the right lobe of the liver unchanged since previous study. Cholelithiasis seen without evidence of cholecystitis. There are multiple small gallstones. PANCREAS: Unremarkable. SPLEEN: Unremarkable. ADRENAL GLANDS: Unremarkable. KIDNEYS AND URETERS: Both kidneys are atrophic, small, more prominent on the right with small bilateral cortical cysts. BLADDER: Decompressed GASTROINTESTINAL TRACT: There are changes of colonic diverticulosis but no diverticulitis ABDOMINAL WALL: No significant hernia is appreciated. LYMPH NODES: Normal. VASCULAR: There is abdominal aortic aneurysmal dilatation, measuring proximally 5.2 x 4.9 cm, in the medial abdominal aortic measured 3.8 x 3.7 cm and distally, before bifurcation of abdominal aorta measured 2.8 cm. Aorta and common iliac arteries are heavily calcified. PELVIC VISCERA: Unremarkable. OSSEOUS STRUCTURES: There are degenerative changes at the level of L4-5 CT/CT abdomen pelvis wo IV con IMPRESSION: 1. Cholelithiasis without cholecystitis. 2. Small bilateral pleural effusions. 3. Abdominal aortic aneurysm. 4. Atrophic kidneys. 5. Diverticulosis without diverticulitis. 6. Degenerative changes at the level of L4-5. Fleischner guidelines were followed. Electronically signed by: Luciana Laws MD 06/03/2024 09:26 AM EDT
[2024-05-30] MEDS: 0.9 % Sodium Chloride 1,000 ML 999 ML IVCONT ×2 (20:26→22:22)
--- NOTE | 2024-05-30 20:26 | ED_ITS ---
HPI - Nausea/Vomiting/Diarrhea General Chief complaint: Nausea/Vomiting/Diarrhea Stated complaint: ?sepsis, nausea, confusion, fever after dialysis Time Seen by Provider: 05/30/24 20:09 Source: patient and EMS Mode of arrival: EMS Limitations: no limitations History of Present Illness ED Provider: Dr. Breana Keita HPI Narrative: Patient comes to the emergency room complaining of multiple episodes of vomiting earlier today. Patient denies any chest pain or shortness of breath. Patient states that he was feeling weak earlier today and therefore his family brought him to the emergency room after vomiting. Patient states that earlier today he had dialysis. Patient denies chest pain or shortness of breath. No nausea or vomiting or diarrhea at this time. No abdominal pain. Patient states that he used feels a little bit weak. Related Data Home Medications ?Medication ?Instructions ?Recorded ?Confirmed allopurinol 100 mg tablet 100 mg PO DAILY 12/30/20 06/28/23 amlodipine 2.5 mg tablet 2.5 mg PO DAILY 12/30/20 06/28/23 aspirin 81 mg tablet,delayed 81 mg PO DAILY 12/30/20 06/28/23 release atorvastatin 80 mg tablet 80 mg PO DAILY 12/30/20 06/28/23 cholecalciferol (vitamin D3) 25 25 mcg PO DAILY 12/30/20 06/28/23 mcg (1,000 unit) capsule (Vitamin D3) clonidine HCl 0.2 mg tablet 0.2 mg PO BEDTIME 12/30/20 06/28/23 levothyroxine 50 mcg tablet 50 mcg PO DAILY 12/30/20 06/28/23 loratadine 10 mg tablet (Claritin) 10 mg PO DAILY PRN Itching 12/30/20 06/28/23 metoprolol succinate 100 mg 100 mg PO BID 12/30/20 06/28/23 tablet,extended release 24 hr omeprazole 20 mg capsule,delayed 20 mg PO DAILY 12/30/20 06/28/23 release cyanocobalamin (vitamin B-12) 1,000 mcg PO QAM 06/10/23 06/28/23 1,000 mcg tablet cyclosporine 0.05 % eye drops 1 drp ophthalmic (eye) BID 06/10/23 06/28/23 (Restasis MultiDose) ipratropium bromide 21 mcg (0.03 2 spray intranasal BID 06/10/23 06/28/23 %) nasal spray ondansetron HCl 4 mg tablet 4 mg PO Q8H PRN Nausea And Vomiting 06/10/23 06/28/23 Previous Rx's ?Medication ?Instructions ?Recorded folic acid 1 mg tablet 1 mg PO DAILY #30 tabs 01/16/21 Allergies Allergy/AdvReac Type Severity Reaction Status Date / Time No Known Allergies Allergy Mild NONE Verified 05/30/24 20:06 Review of Systems 2 Review of Systems: Constitutional : No Weight loss, No Fever, No Chills, No Night Sweats, Complaining of weakness ENT/Mouth : No Hearing loss, No Ear Pain, No Nasal Congestion, No Sinus Pain, No Hoarseness, No sore throat, No Rhinorrhea, No Swallowing Difficulty Eyes: No Eye Pain, No Swelling, No Redness, No Foreign Body, No Discharge, No Vision Changes Cardiovascular : No Chest Pain, No SOB, No Dyspnea on Exertion, No Orthopnea, No Edema, No Palpitations Respiratory : No Cough, No Sputum, No Wheezing, No Smoke Exposure, No Dyspnea Gastrointestinal : complaining of nausea and vomiting earlier today, No Diarrhea, No Constipation, No abdominal Pain, No Hematochezia, No Melena Genitourinary : no irregular bleeding, No Dysuria, No Urinary Frequency, No Hematuria, No Urinary Incontinence, No Urgency, No Flank Pain, No Urinary Flow Changes, No Hesitancy Musculoskeletal : No joint pain, No Myalgias, No Joint Swelling Skin : No Skin Lesions, No rash Neuro : No Weakness, No Numbness, No Paresthesias, No Loss of Consciousness, No Dizziness, No Headache Psych : No Anxiety/Panic, No Depression, No SI/HI/AH/VH, No Social Issues, Heme/Lymph: No Bruising, No Bleeding,No Lymphadenopathy Endocrine : No Polyuria, No Polydipsia, No Temperature Intolerance PMFSH Past Medical History Medical History Dialysis patient COVID-19 vaccine administered Renal failure COPD (chronic obstructive pulmonary disease) Thyroid disease GERD (gastroesophageal reflux disease) Elevated cholesterol PVD (peripheral vascular disease) Prostate CA HTN (hypertension) Heart attack Surgical History Hx of cataract surgery Hx of cystoscopy History of incision and drainage H/O colonoscopy Hx of aortic valve replacement Hx of CABG Social History Social History Household Members: Spouse Housing: Apartment Are you a primary critical care technician to a significant other at home: No Do you presently have visiting nurse or other home services: No Alcohol intake: never Advance Directives: No Advance Directives Information Provided: No service: No Current occupational status: disabled Physical Exam 2 Vital Signs: Vital Signs: Last Vital Signs Temp 98.3 F 05/30/24 21:56 Pulse 87 05/30/24 21:56 Resp 20 05/30/24 21:56 BP 94/43 L 05/30/24 21:56 Pulse Ox 100 05/30/24 21:56 O2 Del Method Nasal Cannula 05/30/24 21:56 O2 Flow Rate 3 05/30/24 21:56 BMI result Body Mass Index 25.0 Const: Other: Appearance: Alert. Oriented X3. No acute distress. Eyes: Pupils equal, round and reactive to light. ENT: Pharynx normal. Neck: Normal inspection. Neck supple. No lymph nodes noted. No crepitus CVS: Normal heart rate and rhythm. Pulses normal. Normal S1 and S2 Respiratory: No respiratory distress. Breath sounds normal. No Wheezing. No rales Abdomen: Soft and nontender. No rigidity. No distention. Skin: Skin warm and dry. Normal skin color. Normal skin turgor. Extremities: +2 pitting edema bilaterally, No Lacerations. No Rash Neuro: Oriented X 3. No motor deficit. No sensory deficit. Moving all extremities. No slurred speech. CN 2 through 12 grossly intact Psych: calm, cooperative, normal affect Course Course Course Narrative: patient came in to the emergency room with a low blood pressure. Patient had dialysis today. However, it was also noted that patient's oxygen saturation drops to 85% on room air. Patient is not oxygen dependent. Patient denies any recent illnesses. Denies shortness of breath. Patient is on 2 L of oxygen. - Patient is empirically being treated with fluids, ceftriaxone. - 20:31, all of the patient's labs are pending. Imaging pending. Patient's blood pressure is in the mid 70s. Patient receiving fluids albumin and antibiotics. Patient will not be receiving 30 mL/kilogram as a bolus. That would fluid overload him and be harmful to the patient. We will attempt albumin and IV fluids 1st, and subsequently gave more fluid slowly. Medications Administered Generic Name Dose Route Start Last Admin Trade Name Freq PRN Reason Stop Dose Admin Albumin Human 100 mls @ 100 mls/hr 05/30/24 20:30 05/30/24 21:41 Kedbumin 25 % IV 05/30/24 22:29 100 mls/hr Q1H QUINTIN Administration Azithromycin 500 mg/ Sodium 250 mls @ 125 mls/hr 05/30/24 20:36 05/30/24 21:13 Chloride IV 05/30/24 22:35 125 mls/hr ONCE ONE Administration Magnesium Sulfate 2 gm in 50 mls @ 25 mls/hr 05/30/24 21:19 05/30/24 21:41 Magnesium Sulfate/H2o IV 05/30/24 23:18 25 mls/hr ONCE ONE Administration Discontinued Medications Generic Name Dose Route Start Last Admin Trade Name Freq PRN Reason Stop Dose Admin Acetaminophen 975 mg 05/30/24 20:33 05/30/24 20:38 Acetaminophen 325 Mg Tablet PO 05/30/24 20:34 975 mg ONCE ONE Administration Sodium Chloride 1,000 mls @ 999 mls/hr 05/30/24 20:25 05/30/24 21:12 Ns IVCONT 05/30/24 21:25 Infused .Q1H1M ONE Infusion Ceftriaxone Sodium 1 gm/ 50 mls @ 100 mls/hr 05/30/24 20:26 05/30/24 21:00 Sodium Chloride IV 05/30/24 20:55 Infused ONCE ONE Infusion Prochlorperazine Edisylate 10 mg 05/30/24 20:25 05/30/24 20:32 Prochlorperazine Edisylate 10 Mg/2 Ml Vial IVPUSH 05/30/24 20:26 10 mg ONCE ONE Administration Medical Decision Making Medical Decision Making MDM Narrative: - my interpretation of EKG: Sinus tachycardia, heart rate 101, no ST segment depression or elevation, no T-wave inversion, QTC 484 - my interpretation of labs: Patient's white blood cell count 15.9 which is new for the patient, lactic acid 2.9. patient has chronic anemia, hemoglobin And hematocrit stable. - Patient's creatinine 4.22 which is patient's baseline, Magnesium 1.5 which was repleted. Troponin 75.6, patient is a renal patient, no chest pain, no EKG changes patient has had multiple episodes of hypotension as low as 74/34. Patient getting IV fluids slowly to avoid overload and albumin. Patient's blood pressure bouncing between mid 80s and low 90s. Map below 55, patient is still receiving fluids. About to start his 2 L. if blood pressure does not improve with IV fluids, patient may need pressors. - My interpretation of chest x-ray: Possible left lower lobe pneumonia. Patient has already been covered with IV antibiotics - I discussed the patient with Dr. Mcduffie from the ICU, pt being admitted Differential Diagnosis Differential Diagnoses: The differential diagnosis associated with the presentation includes ( pneumonia, dehydration) Admission/Observation Consideration of admission/observation: Escalation of care including admission/observation considered Consult Healthcare Provider Management of the patient was discussed with: Desk Attendant Lab Data MDM Lab Attestation statement: I reviewed the patient's lab results. 05/30/24 20:25 05/30/24 20:25 Labs: Lab Results 05/30/24 05/30/24 Range/Units 20:25 21:05 WBC 15.9 H (4.8-10.8) X10*3/uL RBC 3.22 L (4.60-5.80) X10*6/uL Hgb 9.2 L (14.0-18.0) g/dl Hct 28.9 L (42.0-52.0) % MCV 89.8 (80.0-98.0) fL MCH 28.6 (27.0-33.0) pg MCHC 31.8 (31.0-36.0) g/dl RDW 16.9 H (11.0-16.0) % Plt Count 135 L (160-400) X10*3/uL MPV 13.4 H (9.4-12.4) fL Immature Gran % (Auto) 0.9 H (0.0-0.4) % Neut % (Auto) 87.5 H (45-73) % Lymph % (Auto) 1.9 L (20-40) % [place] % (Auto) 9.4 (2-11) % Eos % (Auto) 0.0 (0-4) % Baso % (Auto) 0.3 (0-2) % Lymph # (Auto) 0.3 L (1.2-4.9) X10*3/uL [place] # (Auto) 1.5 H (0.1-1.2) X10*3/uL Eos # (Auto) 0.0 (0.0-0.4) X10*3/uL Baso # (Auto) 0.0 (0.0-0.2) X10*3/uL Abs Immat Gran (auto) 0.15 H (0.00-0.03) X10*3/uL Absolute Neuts (auto) 13.9 H (2.0-8.3) x10*3/uL Absolute Nucleated RBC 0.000 (0.0-0.012) X10*3/uL Nucleated RBC % (auto) 0.0 (0.0-0.2) /100WBC Smear Tech's Comments VERIFIED Hold Purple Top SEE NOTE Hold Blue Top SEE NOTE VBG pH 7.53 H (7.32-7.43) VBG pCO2 39 mmHg VBG pO2 112 mmHg VBG HCO3 33 H (22-26) mmol/L VBG O2 Saturation 98.0 % VBG Base Excess 10.5 mmol/L Sodium 143 (135-145) mmol/L Potassium 3.4 (3.3-5.1) mmol/L Chloride 100 (96-108) mmol/L Carbon Dioxide 30 H (22-29) mmol/L Anion Gap 16 (12-20) BUN 30 H (9-16) mg/dL Creatinine 4.22 H* (0.5-1.4) mg/dL Estim Creat Clear Calc 14.0 Estimated GFR 13 Random Glucose 133 H (60-115) mg/dL Lactic Acid 2.9 H* (0.5-2.0) mmol/L Calcium 10.0 D (8.4-10.2) mg/dL Magnesium 1.5 L (1.6-2.6) mg/dL Total Bilirubin 0.7 (0.0-1.0) mg/dL Direct Bilirubin 0.2 (0.0-0.5) mg/dL AST 20 (5-37) U/L ALT 11 (0-40) U/L Alkaline Phosphatase 65 (39-117) U/L Troponin I High Sens 75.6 H (<3.5-35.0) ng/L Total Protein 7.0 (6.5-8.0) g/dL Albumin 3.6 (3.5-5.0) g/dL Hold Green Top See Note COVID-19 ([facility]) Negative (Negative) COVID-19 Clin Com See Note Independent Interpretation I performed an independent interpretation of an: Plain X-Ray Radiology Impression Discussion of test interpretation with radiology: I have reviewed the radiologist's reading. Radiologist Impression: Status post median sternotomy and CABG. Prominent aortic arch appears overall stable. There are low lung volumes. Streaky opacities in the lung bases with suspected left small effusion. No pneumothorax. XR/XR chest 1V IMPRESSION: Low lung volumes. Streaky opacities in lung bases may reflect atelectasis versus infiltrate. Suspect small left effusion Independent Historian Clinical information obtained from an independent historian. History obtained from or confirmed by: EMS Critical Care Time Critical Care Time Total Critical Care Time: 75 Attestation: I have personally provided critical care time. Time includes review of lab data, radiology results, discussion with consultants, and monitoring for potential decompensation. Intervention performed as documented. Discharge Plan Discharge Clinical Impression: Pneumonia, Acute hypotension Patient Disposition: Admitted As Inpatient Prescriptions: No Action atorvastatin 80 mg tablet 80 mg PO DAILY metoprolol succinate 100 mg tablet extended release 24 hr 100 mg PO BID amlodipine 2.5 mg tablet 2.5 mg PO DAILY allopurinol 100 mg tablet 100 mg PO DAILY aspirin 81 mg tablet,delayed release (DR/EC) 81 mg PO DAILY Hold Instructions: Resume on 01/19/21. clonidine HCl 0.2 mg Tablet 0.2 mg PO BEDTIME levothyroxine 50 mcg tablet 50 mcg PO DAILY omeprazole 20 mg capsule,delayed release(DR/EC) 20 mg PO DAILY loratadine [Claritin] 10 mg Tablet 10 mg PO DAILY PRN (Reason: Itching) cholecalciferol (vitamin D3) [Vitamin D3] 25 mcg (1,000 unit) Capsule 25 mcg PO DAILY folic acid 1 mg tablet 1 mg PO DAILY Qty: 30 0RF cyanocobalamin (vitamin B-12) 1,000 mcg tablet 1,000 mcg PO QAM ondansetron HCl 4 mg tablet 4 mg PO Q8H PRN (Reason: Nausea And Vomiting) ipratropium bromide 21 mcg (0.03 %) spray,non-aerosol 2 spray intranasal BID Restasis MultiDose 0.05 % drops 1 drp ophthalmic (eye) BID Print Language: Senegalese
[2024-05-30] MEDS: cefTRIAXone sodium 1 GM in 0.9 % Sodium Chloride 50 ML IV (20:31)
[2024-05-30] MEDS: Prochlorperazine Edisylate 10 MG/2 ML VIAL IVPUSH (20:32)
[2024-05-30] MEDS: Acetaminophen 325 MG TABLET 975 MG PO (20:38)
[2024-05-30] MEDS: Albumin Human 25 % 100 ML IV ×2 (20:39→21:41)
[2024-05-30 20:44] LABS: Basophils Percent Auto 0.3 % (0-2); Hematocrit 28.9 % (42.0-52.0); Hemoglobin 9.2 g/dl (14.0-18.0); Imm Gran Abs Auto 0.15 X10*3/uL (0.00-0.03); Imm Gran Pct Auto 0.9 % (0.0-0.4); Lymphocytes Absolute Auto 0.3 X10*3/uL (1.2-4.9); Lymphocytes Percent Auto 1.9 % (20-40); MANUAL DIFF FLAG SCAN; Mean Corpuscular HGB Conc 31.8 g/dl (31.0-36.0); Mean Corpuscular Hemoglobin 28.6 pg (27.0-33.0); Mean Corpuscular Volume 89.8 fL (80.0-98.0); Mean Platelet Volume 13.4 fL (9.4-12.4); Monocytes Absolute Auto 1.5 X10*3/uL (0.1-1.2); Monocytes Percent Auto 9.4 % (2-11); Neutrophils Absolute Auto 13.9 x10*3/uL (2.0-8.3); Neutrophils Percent Auto 87.5 % (45-73); Platelet Count 135 X10*3/uL (160-400); Red Blood Count 3.22 X10*6/uL (4.60-5.80); Red Cell Distribution Width 16.9 % (11.0-16.0); SCAN SMEAR FLAG 1; White Blood Count 15.9 X10*3/uL (4.8-10.8)
[2024-05-30 20:45] LABS: PLT ABN DIST 1
[2024-05-30 20:52] LABS: COVID-19 Test Negative (Negative); IDNOW Serial# 6674DD1D
--- NOTE | 2024-05-30 20:53 | PC.NURSE ---
pt biba from home family member found pt vomiting. had dialysis today (MWF). pt denies cp/sob/n/v/d at this time. on arrival Dr. Keita notified of sepsis alert. vitals as documented. sats 85-87% on RA, placed on 2L NC improved to 87-89%, up to 3L NC Dr. Keita aware. pt denies dyspnea resp even and unlabored. 2x 18g IV established to RUE. IVF infusing. labs sent ekg obtained. rectal temp 102.3F bp as documented. pt medicated per mar, tolerated po meds. iv abx and albumin infusing per dec. family reported to ems pt is altered however on arrival pt is axox4. awaiting further orders at this time nad. call martinez within reach.
[2024-05-30 20:54] LABS: Lactic Acid 2.9 mmol/L (0.5-2.0)
[2024-05-30 21:01] LABS: Troponin-I High Sensitivity 75.6 ng/L (<3.5-35.0)
[2024-05-30 21:04] LABS: Alanine Aminotransferase 11 U/L (0-40); Albumin Level 3.6 g/dL (3.5-5.0); Alkaline Phosphatase 65 U/L (39-117); Anion Gap 16 (12-20); Aspartate Amino Transferase 20 U/L (5-37); Bilirubin Direct 0.2 mg/dL (0.0-0.5); Bilirubin Total 0.7 mg/dL (0.0-1.0); Blood Urea Nitrogen 30 mg/dL (9-16); Carbon Dioxide 30 mmol/L (22-29); Chloride 100 mmol/L (96-108); Estimated Glomerular Filt Rate 13; Glucose Random 133 mg/dL (60-115); Magnesium 1.5 mg/dL (1.6-2.6); Potassium 3.4 mmol/L (3.3-5.1); Sodium 143 mmol/L (135-145)
[2024-05-30 21:08] LABS: VBG Base Excess 10.5 mmol/L; VBG HCO3 33 mmol/L (22-26); VBG pCO2 39 mmHg; VBG pH 7.53 (7.32-7.43); VBG pO2 112 mmHg
[2024-05-30] MEDS: Azithromycin 500 MG in 0.9 % Sodium Chloride 250 ML 125 MG IV (21:13)
[2024-05-30 21:15] LABS: SLIDE REVIEW VERIFIED
[2024-05-30] MEDS: Magnesium Sulfate/H2O 2 GM/50 ML PIGGYBACK IV (21:41)
--- NOTE | 2024-05-30 22:01 | PC.NURSE ---
previous bp inaccurate as bp cuff not on appropriately. manual bp obtained as documented. bp cuff now in correct position and accurate reading of 94/43. MD aware.
[2024-05-30 22:19] LABS: Venous Blood Gas Refer to POC result
--- NOTE | 2024-05-30 22:30 | PC.NURSE ---
bp as documented. MD aware. IVF infusing per mar. awaiting icu admission.
[2024-05-30 22:33] LABS: Reflex Lactate? Lactic Acid Added
--- NOTE | 2024-05-30 22:39 | PC.NURSE ---
pt reports even though he is a dialysis pt he produces some urine. denies need to urinate at this time. bladder scan showed minimal urine. aware.
[2024-05-30 23:09] LABS: Phosphorus 0.7 mg/dL (2.7-4.5)
[2024-05-30 23:16] LABS: ~Lactic Acid-LAB USE ONLY 1.7 mmol/L (0.5-2.0)
[2024-05-30] MEDS: Enoxaparin Sodium 30 MG/0.3 ML SYRINGE SUBCUT (23:20)
[2024-05-30 23:29] LABS: Troponin-I High Sensitivity 166.7 ng/L (<3.5-35.0)
--- NOTE | 2024-05-30 23:35 | PC.NURSE ---
Becca LAFLEUR made aware of BP. critical troponin reported to CONSTRUCTION PROJECT ADMINISTRATOR as well.
--- NOTE | 2024-05-30 23:57 | PC.NURSE ---
Addendum entered by Tayler Burger 05/30/24 23:59: 2359 - 0.05mcg/kg/min per protocol; bp 89/46 hr 81. Original Note: levophed unverified per dec, infusion started as bp low. order confirmed with CORPORATE STRATEGIST and accurate weight in computer.
[2024-05-30] MEDS: Norepinephrine Bitartrate/D5W 8 MG/250 ML PLAST..BAG 7.83 MG IV (23:59)
[2024-05-31] VITALS (28 sets, daily range): BP systolic 88–143; BP diastolic 43–74; PULSE 62–96; RESP 12–24; TEMP 36.2–37.5; O2SAT 90–100; BMI 25.0
--- NOTE | 2024-05-31 00:04 | PC.NURSE ---
no titration as map 66.
--- NOTE | 2024-05-31 00:09 | PC.NURSE ---
Potassium phosphate infusion not available in ED pyxis available in ICU. per MOLDER FEEDER can wait for transfer to ICU to initiate infusion.
[2024-05-31] MEDS: Potassium Phosphate/NS 15 MMOL/250 ML PLAST..BAG 62.5 MMOL IV ×2 (00:35→05:00)
--- NOTE | 2024-05-31 00:39 | PM.CCHP ---
History of Present Illness Date of Service: 05/31/24 Attending physician on admission: Marlon Mcduffie Chief Complaint: Nausea/Vomiting/Diarrhea Mr. 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 weakness and multiple episodes of vomiting during the day.?He denied chest pain, shortness of breath, abdominal pain, and no N/ V/D on arrival.?The patient had dialysis earlier in the day. On arrival to the emergency room, the patient's blood pressure 84/36, heart rate 104, temp 100.0,?O2 sat 87% on RA.? Laboratory data significant for WBC 15.9, hemoglobin 9.2, hematocrit 28.9, platelet 135,? CO2 30, BUN 30, creatinine 4.22, lactic acid 2.9, phosphorus 0.7, magnesium 1.5, troponin 75.6. VBG 7.53/39/112/33. Imaging: CXR showed possible left lower lobe pneumonia.?? ED course: ? The patient? received a total of 2600 mL normal saline, 2 bags albumin, Compazine, Tylenol, ceftriaxone 1 g, azithromycin 500 mg, magnesium sulfate 2 g? and was started on a Levophed drip. Review of Systems Review of Systems: Yes all other systems are reviewed and are negative Constitutional: Constitutional: Reports as per HPI Eyes: Eyes: Denies eye pain ENT: Denies dizziness and Denies nasal congestion Cardiovascular: Cardiovascular: Denies chest pain and Denies dyspnea Respiratory: Respiratory: Denies dyspnea Gastrointestinal: Gastrointestinal: Reports no additional gastrointestinal complaints Musculoskeletal: Musculoskeletal: Reports muscle weakness Neurologic: Denies dizziness [facility] Past Medical History Medical History Dialysis patient COVID-19 vaccine administered Renal failure COPD (chronic obstructive pulmonary disease) Thyroid disease GERD (gastroesophageal reflux disease) Elevated cholesterol PVD (peripheral vascular disease) Prostate CA HTN (hypertension) Heart attack Surgical History Surgical History Hx of cataract surgery Hx of cystoscopy History of incision and drainage H/O colonoscopy Hx of aortic valve replacement Hx of CABG Social History Social History Household Members: Family Housing: House Are you a primary progressive care nurse to a significant other at home: No Do you presently have visiting nurse or other home services: No Alcohol intake: never Patient Tobacco Use Status: Never used Tobacco Smoked in Last 30 Days: No Use of substances other than those prescribed or required for medical reasons: No Currently Displaying Signs/Symptoms of Drug Intoxication Withdrawal: No Have you been hit, kicked, punched, or otherwise hurt by someone within the past year? If so, by whom?: No Do you feel safe in your current relationship?: No Current Relationship Is there a partner from a previous relationship who is making you feel unsafe now?: No Are you made to feel afraid or neglected: No Advance Directives: No Advance Directives Information Provided: No Do you have a plan to hurt others: No Plan Recently lost weight without trying: No Eating poorly because of decreased appetite: No Nutrition Risks: No Nutritional Risk Poor oral hygiene: No service: No Current occupational status: disabled Meds Allergies Allergy/AdvReac Type Severity Reaction Status Date / Time No Known Allergies Allergy Mild NONE Verified 05/30/24 20:06 Active Medications: Current Medications Enoxaparin Sodium (Enoxaparin Sodium 30 Mg/0.3 Ml Syringe) 30 mg SUBCUT Q24H [facility] Last Admin: 05/30/24 23:20 Dose: 30 mg Potassium Phosphate (Kphos) 15 mmol in 250 mls @ 62.5 mls/hr IV Q4H [facility] Stop: 05/31/24 07:29 Last Admin: 05/31/24 00:35 Dose: 62.5 mls/hr Norepinephrine Bitartrate (Levophed) 8 mg in 250 mls @ 0 mls/hr IV .Q0M [facility]; Protocol Last Titration: 05/31/24 00:09 Dose: 0.07 mcg/kg/min, 10.96 mls/hr Piperacillin Sod/Tazobactam (Sod 2.25 gm/ Sodium Chloride) 50 mls @ 100 mls/hr IV Q8H [facility] Omeprazole (Omeprazole 40 Mg Capsule.Dr) 40 mg PO DAILY@0630 [facility] Pharmacy Consult (Consult Rx Anticoag Dosing) 1 each MISCELLANE DAILY PRN; Protocol PRN Reason: Consult order Pharmacy Consult (Consult Rx Vancomycin Dosing) 1 each MISCELLANE DAILY PRN PRN Reason: Consult order Home Medications ?Medication ?Instructions ?Recorded ?Confirmed ?Last Taken ?Type allopurinol 100 mg tablet 100 mg PO DAILY 12/30/20 06/28/23 06/28/23 History amlodipine 2.5 mg tablet 2.5 mg PO DAILY 12/30/20 06/28/23 06/28/23 History aspirin 81 mg tablet,delayed 81 mg PO DAILY 12/30/20 06/28/23 06/28/23 History release atorvastatin 80 mg tablet 80 mg PO DAILY 12/30/20 06/28/23 06/28/23 History cholecalciferol (vitamin D3) 25 25 mcg PO DAILY 12/30/20 06/28/23 06/28/23 History mcg (1,000 unit) capsule (Vitamin D3) clonidine HCl 0.2 mg tablet 0.2 mg PO BEDTIME 12/30/20 06/28/23 06/28/23 History levothyroxine 50 mcg tablet 50 mcg PO DAILY 12/30/20 06/28/23 06/28/23 History loratadine 10 mg tablet (Claritin) 10 mg PO DAILY PRN Itching 12/30/20 06/28/23 06/28/23 History metoprolol succinate 100 mg 100 mg PO BID 12/30/20 06/28/23 06/28/23 History tablet,extended release 24 hr omeprazole 20 mg capsule,delayed 20 mg PO DAILY 12/30/20 06/28/23 06/28/23 History release cyanocobalamin (vitamin B-12) 1,000 mcg PO QAM 06/10/23 06/28/23 06/28/23 History 1,000 mcg tablet cyclosporine 0.05 % eye drops 1 drp ophthalmic (eye) BID 06/10/23 06/28/23 06/28/23 History (Restasis MultiDose) ipratropium bromide 21 mcg (0.03 2 spray intranasal BID 06/10/23 06/28/23 06/28/23 History %) nasal spray ondansetron HCl 4 mg tablet 4 mg PO Q8H PRN Nausea And Vomiting 06/10/23 06/28/23 06/28/23 History Physical Exam Vital Signs: Vital Signs: Last Vital Signs Temp 98 F 05/30/24 23:21 Pulse 69 05/31/24 00:19 Resp 19 05/31/24 00:04 BP 104/49 L 05/31/24 00:19 Pulse Ox 100 05/31/24 00:04 O2 Del Method Nasal Cannula 05/31/24 00:04 O2 Flow Rate 3 05/31/24 00:04 BMI result Body Mass Index 25.0 Const: General: cooperative, comfortable, no acute distress and alert Orientation/consciousness: patient oriented x3 (answering appropriately.) Limitations: language barrier HEENT: Head: Yes normocephalic and Yes atraumatic General nose exam: Normal external nose present (Nares patent, septum midline, sinuses nontender bilaterally.) Mouth: Normal oral and palatal mucosa present (No thrush, tongue in midline, mucosa moist.) Throat: Yes other (No erythema, no exudate.) Neck: Neck: Yes supple (no thyromegaly, trachea midline.) Carotids: normal carotid upstroke Resp: Auscultation: clear to auscultation bilaterally (normal work of breathing, no accessory muscle use), no rales, no rhonchi and no wheezes Cardio: Jugular venous distension: no JVD Rate: bradycardic Rhythm: regular rhythm Heart sounds: no gallops, no murmurs and no rubs Peripheral pulses: Peripheral pulses 2+ throughout GI: Palpation (GI): Soft to palpation (nondistended.) and nontender Neuro: General: patient oriented x3 (answering appropriately.) Extrem: General: Yes full ROM, Yes capillary refill normal and Yes edema (+2 pitting edema bilaterally) Left upper extremity: shoulder/upper arm (CARLEY AV Fistula) Psych: Affect: normal affect Attitude: cooperative Results Labs 05/30/24 20:25 05/31/24 05:50 Labs: Laboratory Results - last 24 hr 05/30/24 05/30/24 05/30/24 20:25 21:05 23:00 MCV 89.8 MCH 28.6 MCHC 31.8 RDW 16.9 H Plt Count 135 L MPV 13.4 H Immature Gran % (Auto) 0.9 H Neut % (Auto) 87.5 H Lymph % (Auto) 1.9 L [place] % (Auto) 9.4 Eos % (Auto) 0.0 Baso % (Auto) 0.3 Lymph # (Auto) 0.3 L [place] # (Auto) 1.5 H Eos # (Auto) 0.0 Baso # (Auto) 0.0 Abs Immat Gran (auto) 0.15 H Absolute Neuts (auto) 13.9 H Absolute Nucleated RBC 0.000 Nucleated RBC % (auto) 0.0 Smear Tech's Comments VERIFIED Hold Purple Top SEE NOTE Hold Blue Top SEE NOTE VBG pH 7.53 H VBG pCO2 39 VBG pO2 112 VBG HCO3 33 H VBG O2 Saturation 98.0 VBG Base Excess 10.5 Anion Gap 16 Estim Creat Clear Calc 14.0 Estimated GFR 13 Random Glucose 133 H Lactic Acid 2.9 H* Lactic Acid F/U @ 2Hr 1.7 Calcium 10.0 D Phosphorus 0.7 L* Magnesium 1.5 L Total Bilirubin 0.7 Direct Bilirubin 0.2 AST 20 ALT 11 Alkaline Phosphatase 65 Troponin I High Sens 75.6 H 166.7 H* D Total Protein 7.0 Albumin 3.6 Hold Green Top See Note COVID-19 (ZACHARIAH) Negative COVID-19 Clin Com See Note Imaging Radiologist's Impressions: Impressions Chest X-Ray 05/30/24 20:19 IMPRESSION: Low lung volumes. Streaky opacities in lung bases may reflect atelectasis versus infiltrate. Suspect small left effusion. Electronically signed by: Theodore Alves MD 05/30/2024 10:04 PM EDT RP Assessment and Plan (1) Sepsis: Qualifiers: Sepsis acute organ dysfunction status: unspecified Sepsis type: sepsis due to unspecified organism Qualified Code(s): A41.9 - Sepsis, unspecified organism Status: Acute (2) Acute hypotension: Status: Acute (3) Pneumonia: Qualifiers: Laterality: left Lung location: lower lobe of lung Pneumonia type: due to unspecified organism Qualified Code(s): J18.9 - Pneumonia, unspecified organism Status: Acute (4) CKD (chronic kidney disease) stage 5, GFR less than 15 ml/min: Status: Acute (5) Hypomagnesemia: Status: Acute (6) Anemia: Qualifiers: Anemia type: unspecified type Qualified Code(s): D64.9 - Anemia, unspecified Status: Acute Plan 84-year-old male with history of hypertension, GERD, 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 Neuro: No acute issues. Cardiac: Septic shock- Pt febrile in ED, initial lactic 2.9, elevated white count. Imaging showed possible left lower lobe pneumonia. Volume resuscitated in ED. Continue Levophed. ? Pulmonary: Underlying COPD. Probable pneumonia. Continue? empiric antibiotics. Titrate off supplemental oxygen as able. Renal: Repeat lactic 1.7. BUN/Creat at baseline. Replete electrolytes as needed. Monitor renal indices and I/O. Appreciate input from nephrology. Endo: No acute issues.? GI: No acute issues. ID: Sepsis likely due to pneumonia. Blood cultures pending. UA sent. Pt? was treated with empiric antibiotics. Volume resuscitated? in ED. Heme/Onc: No acute issues. Underlying anemia. Psych:? No acute issues. Miscellaneous:? No acute issues. Prophylaxis: lovenox, pneumatic hoses.? Diet: NPO Case discussed with attending Dr. Mcduffie. Total time managing care of this patient today: 75 minutes.
[2024-05-31] MEDS: Piperacillin Sodium/Tazobactam 2.25 GM in 0.9 % Sodium Chloride 50 ML IV ×2 (01:08→08:10)
[2024-05-31] MEDS: vancomycin HCL 1,000 MG, vancomycin HCL 750 MG in 0.9 % Sodium Chloride 500 ML 267.5 MG IV (01:58)
[2024-05-31 05:49] LABS: VBG Base Excess 4.8 mmol/L; VBG HCO3 24 mmol/L (22-26); VBG pCO2 22 mmHg; VBG pH 7.65 (7.32-7.43); VBG pO2 48 mmHg
[2024-05-31] MEDS: Omeprazole 40 MG CAPSULE.DR PO (05:59)
[2024-05-31 06:14] LABS: Venous Blood Gas Refer to POC result
[2024-05-31 06:45] LABS: Alanine Aminotransferase 43 U/L (0-40); Albumin Level 3.4 g/dL (3.5-5.0); Alkaline Phosphatase 54 U/L (39-117); Anion Gap 18 (12-20); Aspartate Amino Transferase 71 U/L (5-37); Bilirubin Total 0.8 mg/dL (0.0-1.0); Blood Urea Nitrogen 31 mg/dL (9-16); Calcium 8.6 mg/dL (8.4-10.2); Carbon Dioxide 23 mmol/L (22-29); Chloride 103 mmol/L (96-108); Creatinine Clr Calc Pharmacy 12.6; Estimated Glomerular Filt Rate 12; Glucose Random 207 mg/dL (60-115); Magnesium 2.1 mg/dL (1.6-2.6); Phosphorus 4.4 mg/dL (2.7-4.5); Potassium 4.3 mmol/L (3.3-5.1); Sodium 140 mmol/L (135-145); Total Protein 6.1 g/dL (6.5-8.0)
[2024-05-31 07:31] LABS: Troponin-I High Sensitivity 259.8 ng/L (<3.5-35.0)
[2024-05-31 11:02] LABS: MANUAL DIFF FLAG NO
[2024-05-31 11:05] LABS: Basophils Percent Auto 0.2 % (0-2); Eosinophils Absolute Auto 0.1 X10*3/uL (0.0-0.4); Eosinophils Percent Auto 0.9 % (0-4); Hematocrit 26.4 % (42.0-52.0); Hemoglobin 8.4 g/dl (14.0-18.0); Imm Gran Abs Auto 0.09 X10*3/uL (0.00-0.03); Imm Gran Pct Auto 0.6 % (0.0-0.4); Lymphocytes Absolute Auto 0.5 X10*3/uL (1.2-4.9); Lymphocytes Percent Auto 3.8 % (20-40); Mean Corpuscular HGB Conc 31.8 g/dl (31.0-36.0); Mean Corpuscular Hemoglobin 29.2 pg (27.0-33.0); Mean Corpuscular Volume 91.7 fL (80.0-98.0); Mean Platelet Volume 11.9 fL (9.4-12.4); Monocytes Absolute Auto 1.2 X10*3/uL (0.1-1.2); Monocytes Percent Auto 8.5 % (2-11); Red Blood Count 2.88 X10*6/uL (4.60-5.80); Red Cell Distribution Width 17.1 % (11.0-16.0); White Blood Count 13.9 X10*3/uL (4.8-10.8)
[2024-05-31 11:07] LABS: Platelet Count 98 X10*3/uL (160-400)
[2024-05-31 12:13] LABS: Glucose, Whole Blood 77 mg/dL (60-115)
--- NOTE | 2024-05-31 12:13 | MHC.CM.PN ---
Pt requests CM contact his son, Gian for information: Per Edbryson, pt resides alone and has READING ASSISTANT assistance in addition to Edward providing care and transportation. Pt has a w/c, walker and adaptive devices in his apt. He attends HD at [facility] in [place] on , , with transportation provided by facility or son. Gian plans on staying with pt nearly 24/7 starting on 06/04 and is declining STR placement. He is able to transport pt to home. HCP copy requested. PCP is a a new MD at [facility]. IMM in chart
[2024-05-31 16:26] LABS: Glucose, Whole Blood 102 mg/dL (60-115)
--- NOTE | 2024-05-31 18:04 | PM.EVENT ---
Event Note Date of Service: 05/31/24 Event Note: This is an 84-year-old male with history of ESRD on hemodialysis admitted to the ICU for hypotension requiring pressors briefly Blood cultures 2/2 growing Gram-positive cocci on vancomycin Off of pressors and downgraded to the medical floor 05/31 Time Spent With Patient Time: Total time managing care of this patient today ____ minutes.
--- NOTE | 2024-05-31 20:00 | PHA.MEDREC ---
Addendum entered by Magalys Solomon [facility] 06/01/24 12:42: Med rec reviewed by [facility]. When Nicole spoke to son this morning, he was able to confirm allopurinol, aspirin, atorvastatin, vitamin D, vitamin B12, folic acid, levothyroxine and omeprazole. Addendum entered by Nicole Hawkins 06/01/24 11:56: Following up from yesterday. Spoke to son @ 11:40am he was only able to confirm some medication. Utilized medbox list from [facility] to confirm other medications Addendum entered by Katherine Woody [facility] 05/31/24 22:05: Utilized pharmacy claims to confirm other medications most recently filled. Will leave note for AM [facility] to try and follow up with son again. Original Note: Pharmacy Consult ? Medication Reconciliation Spoke with son, Gian barker around 1900 and he stated he was going to call back after 5-10 minutes, after an hour I called back at 2000 and the son was able to confirm his dads medications he takes at bedtime which were Atorvastatin 80mg and Omeprazole 20mg. Patient son was not able to confirm any more but stated he was going to his dads house and call us back before 2300 tonight and confirm the rest of his medications.
[2024-05-31 20:37] LABS: Glucose, Whole Blood 103 mg/dL (60-115)
[2024-05-31] MEDS: Enoxaparin Sodium 30 MG/0.3 ML SYRINGE SUBCUT (22:33)
[2024-05-31] MEDS: Acetaminophen 325 MG TABLET 650 MG PO (23:09)
[2024-06-01] VITALS (9 sets, daily range): BP systolic 117–154; BP diastolic 59–84; PULSE 64–74; RESP 18–20; TEMP 35.8–36.9; O2SAT 94–100; BMI 26.5
[2024-06-01 06:28] LABS: MANUAL DIFF FLAG NO
[2024-06-01] MEDS: Omeprazole 40 MG CAPSULE.DR PO (06:29)
[2024-06-01 06:44] LABS: Basophils Percent Auto 0.5 % (0-2); Eosinophils Percent Auto 0.2 % (0-4); Hematocrit 23.7 % (42.0-52.0); Hemoglobin 7.4 g/dl (14.0-18.0); Imm Gran Abs Auto 0.03 X10*3/uL (0.00-0.03); Imm Gran Pct Auto 0.5 % (0.0-0.4); Lymphocytes Absolute Auto 0.8 X10*3/uL (1.2-4.9); Lymphocytes Percent Auto 12.9 % (20-40); Mean Corpuscular HGB Conc 31.2 g/dl (31.0-36.0); Mean Corpuscular Hemoglobin 28.5 pg (27.0-33.0); Mean Corpuscular Volume 91.2 fL (80.0-98.0); Mean Platelet Volume 13.2 fL (9.4-12.4); Monocytes Absolute Auto 0.8 X10*3/uL (0.1-1.2); Neutrophils Absolute Auto 4.6 x10*3/uL (2.0-8.3); Neutrophils Percent Auto 73.9 % (45-73); Platelet Count 84 X10*3/uL (160-400); White Blood Count 6.3 X10*3/uL (4.8-10.8)
[2024-06-01 06:57] LABS: Anion Gap 16 (12-20); Blood Urea Nitrogen 54 mg/dL (9-16); Calcium 8.2 mg/dL (8.4-10.2); Carbon Dioxide 25 mmol/L (22-29); Chloride 106 mmol/L (96-108); Creatinine Clr Calc Pharmacy 9.6; Estimated Glomerular Filt Rate 9; Glucose Random 86 mg/dL (60-115); Magnesium 1.9 mg/dL (1.6-2.6); Phosphorus 4.6 mg/dL (2.7-4.5); Potassium 4.5 mmol/L (3.3-5.1); Sodium 142 mmol/L (135-145)
[2024-06-01 07:56] LABS: Glucose, Whole Blood 76 mg/dL (60-115)
--- NOTE | 2024-06-01 09:41 | HO.PM.IMPN ---
Subjective Subjective Date of Service: 06/01/24 Interval History: Seen and examined this morning Follow-up for bacteremia No overnight events History obtained with the assistance of a ground transportation operator No specific complaints this morning. Denies fevers, shortness of breath Review of Systems Review of Systems: Yes all other systems are reviewed and are negative Constitutional Constitutional: Denies chills and Denies fever(s) Cardiovascular Cardiovascular: Denies chest pain, Denies palpitations and Denies dyspnea Respiratory Respiratory: Denies cough and Denies dyspnea Endocrine Endocrine: Denies palpitations Physical Exam Vital Signs: Vital Signs: Last Vital Signs Temp 97.1 F 06/01/24 07:34 Pulse 69 06/01/24 07:34 Resp 20 06/01/24 07:34 BP 142/66 H 06/01/24 07:34 Pulse Ox 96 06/01/24 07:34 O2 Del Method Room Air 06/01/24 07:34 O2 Flow Rate 2 05/31/24 13:56 BMI result Body Mass Index 26.5 Const: General: cooperative, comfortable, no acute distress, alert and awake Nutritional Appearance: average body habitus Orientation/consciousness: patient oriented x3 Resp: Effort & Inspection: normal respiratory effort, able to speak in complete sentences, no respiratory distress and no use of accessory muscles Auscultation: clear to auscultation bilaterally Cardio: Rate: regular rate GI: Inspection: No distended Palpation (GI): Soft to palpation and nontender Neuro: General: patient oriented x3, moves all extremities and CN's II-XI intact bilaterally Extrem: General: Yes no pedal edema Objective Data Active Medications Acetaminophen (Acetaminophen 325 Mg Tablet) 650 mg PO Q4H PRN PRN Reason: Pain, Mild (Pain Scale 1-3) Last Admin: 05/31/24 23:09 Dose: 650 mg Documented By: MARTHA Enoxaparin Sodium (Enoxaparin Sodium 30 Mg/0.3 Ml Syringe) 30 mg SUBCUT Q24H [facility] Last Admin: 05/31/24 22:33 Dose: 30 mg Documented By: MARTHA Folic Acid (Folic Acid 1 Mg Tablet) 1 mg PO DAILY [facility] Vancomycin HCl 1,000 mg/ (Sodium Chloride) 270 mls @ 270 mls/hr IV Q24H [facility] Levothyroxine Sodium (Levothyroxine Sodium 50 Mcg Tablet) 50 mcg PO DAILY@0600 [facility] Omeprazole (Omeprazole 40 Mg Capsule.) 40 mg PO DAILY@0630 [facility] Last Admin: 06/01/24 06:29 Dose: 40 mg Documented By: VICKIE Pharmacy Consult (Consult Rx Anticoag Dosing) 1 each MISCELLANE DAILY PRN; Protocol PRN Reason: Consult order Pharmacy Consult (Consult Rx Vancomycin Dosing) 1 each MISCELLANE DAILY PRN PRN Reason: Consult order Labs 06/01/24 05:58 06/01/24 05:58 Labs: Laboratory Results - last 24 hr 05/31/24 05/31/24 05/31/24 10:57 12:09 16:22 MCV 91.7 MCH 29.2 MCHC 31.8 RDW 17.1 H Plt Count 98 L D MPV 11.9 Immature Gran % (Auto) 0.6 H Neut % (Auto) 86.0 H Lymph % (Auto) 3.8 L [place] % (Auto) 8.5 Eos % (Auto) 0.9 Baso % (Auto) 0.2 Lymph # (Auto) 0.5 L [place] # (Auto) 1.2 Eos # (Auto) 0.1 Baso # (Auto) 0.0 Abs Immat Gran (auto) 0.09 H Absolute Neuts (auto) 12.0 H Absolute Nucleated RBC 0.000 Nucleated RBC % (auto) 0.0 Anion Gap Estim Creat Clear Calc Estimated GFR POC Glucose 77 102 Random Glucose Calcium Phosphorus Magnesium 05/31/24 06/01/24 06/01/24 20:04 05:58 07:32 MCV 91.2 MCH 28.5 MCHC 31.2 RDW 17.0 H Plt Count 84 L MPV 13.2 H Immature Gran % (Auto) 0.5 H Neut % (Auto) 73.9 H Lymph % (Auto) 12.9 L Benson % (Auto) 12.0 H Eos % (Auto) 0.2 Baso % (Auto) 0.5 Lymph # (Auto) 0.8 L Benson # (Auto) 0.8 Eos # (Auto) 0.0 Baso # (Auto) 0.0 Abs Immat Gran (auto) 0.03 Absolute Neuts (auto) 4.6 Absolute Nucleated RBC 0.000 Nucleated RBC % (auto) 0.0 Anion Gap 16 Estim Creat Clear Calc 9.6 Estimated GFR 9 POC Glucose 103 76 Random Glucose 86 Calcium 8.2 L Phosphorus 4.6 H Magnesium 1.9 Microbiology Microbiology Results: Microbiology 05/30/24 20:25 Blood Culture - Preliminary Blood - Venous Prelim: GPC Gram Stain only 05/30/24 20:25 Blood Culture - Preliminary Blood - Venous Prelim: GPC Gram Stain only Assessment and Plan (1) Sepsis: Status: Acute (2) Gram-positive bacteremia: Status: Acute Plan This is an 84-year-old Russian-speaking male with history of end-stage renal disease on hemodialysis, COPD, GERD, hyperlipidemia, PVD, hypothyroidism who presented to the emergency department with weakness and multiple episodes of vomiting found to have hypotension. Chest x-ray showed possible left lower lobe pneumonia. He was admitted to the ICU for vasopressor support. Blood cultures grew GPC. He was downgraded from the medical floor on May 31. GPC bacteremia repeat cultures pending ECHO ordered continue IV vancomycin Await final culture results May need 4 weeks IV antibiotics septic shock due to bacteremia and possible pneumonia cxr showing possible pneumonia initially treated with IV vanco and zosyn - zosyn stopped in ICU cultures growing GPC due to history of dysphagia will obtain speech evaluation Elevated troponin Likely type 2 due to demand from hypotension No chest pain ESRD on HD MWF schedule nephrology consult Acute on chronic anemia, likely of chronic disease No evidence of acute blood loss We will transfuse 1 unit RBCs during dialysis today follow CBC Thrombocytopenia Chronic Follow CBC Hypothyroidism Continue Synthroid Mild transaminitis Likely due to hypotension Trend LFTs GERD Continue PPI DVT prophylaxis Lovenox Patient will need ongoing stay in the hospital for management of bacteremia requiring IV antibiotics Quality Stroke Does the patient have a stroke diagnosis?: No VTE Prior VTE?: No VTE Risk Level:: Medical - moderate - high VTE Device Contraindication: N/A - Device Ordered VTE Drug Contraindication: N/A - Med Ordered
--- NOTE | 2024-06-01 10:48 | MHC.CM.PN ---
EMR REVIEWE, PT ICU STEPDOWN W/BACTEREMIA WILL LIKELY NEED 4WKS IV ABX, BC'S PENDNING AND CM HAS REACHED OUT TO HOSPITALIST TO VERIFY IF PT WILL BE ABLE TO HAVE HIS IV ABX AFTER OUTPT HD, CM WILL CONT TO FOLLOW DC NEEDS.
[2024-06-01 11:26] LABS: Glucose, Whole Blood 133 mg/dL (60-115)
[2024-06-01] MEDS: Folic Acid 1 MG TABLET PO (11:34)
[2024-06-01] MEDS: Acetaminophen 325 MG TABLET 650 MG PO (11:48)
--- NOTE | 2024-06-01 13:34 | PM.EVENT ---
Event Note Date of Service: 06/01/24 Event Note: Chart reviewed HD orders given to the HD nurse for MWF D/w Medical team Antibiotics per medical team Time Spent With Patient Time: Total time managing care of this patient today ____ minutes.
--- NOTE | 2024-06-01 15:08 | PM.PNNEP ---
Subjective Subjective Date of Service: 06/01/24 Interval history: Seen and examined on HD Has bacteremia No overnight events No specific complaints this morning. Denies fevers, shortness of breath Physical Exam Vital Signs: Vital Signs: Last Vital Signs Temp 98.0 F 06/01/24 14:41 Pulse 65 06/01/24 14:41 Resp 18 06/01/24 14:41 BP 139/75 06/01/24 14:41 Pulse Ox 100 06/01/24 11:54 O2 Del Method Room Air 06/01/24 11:54 O2 Flow Rate 2 05/31/24 13:56 BMI result Body Mass Index 26.5 Const: General: cooperative, comfortable, no acute distress, alert and awake Nutritional Appearance: average body habitus Orientation/consciousness: patient oriented x3 Resp: Effort & Inspection: normal respiratory effort, able to speak in complete sentences, no respiratory distress and no use of accessory muscles Auscultation: clear to auscultation bilaterally Cardio: Rate: regular rate GI: Inspection: No distended Palpation (GI): Soft to palpation and nontender Neuro: General: patient oriented x3, moves all extremities and CN's II-XI intact bilaterally Extrem: General: Yes no pedal edema Objective Data Labs 06/01/24 05:58 06/01/24 05:58 Labs: Laboratory Results - last 24 hr 05/31/24 05/31/24 06/01/24 16:22 20:04 05:58 WBC 6.3 RBC 2.60 L Hgb 7.4 L Hct 23.7 L MCV 91.2 MCH 28.5 MCHC 31.2 RDW 17.0 H Plt Count 84 L MPV 13.2 H Immature Gran % (Auto) 0.5 H Neut % (Auto) 73.9 H Lymph % (Auto) 12.9 L [place] % (Auto) 12.0 H Eos % (Auto) 0.2 Baso % (Auto) 0.5 Lymph # (Auto) 0.8 L [place] # (Auto) 0.8 Eos # (Auto) 0.0 Baso # (Auto) 0.0 Abs Immat Gran (auto) 0.03 Absolute Neuts (auto) 4.6 Absolute Nucleated RBC 0.000 Nucleated RBC % (auto) 0.0 Sodium 142 Potassium 4.5 Chloride 106 Carbon Dioxide 25 Anion Gap 16 BUN 54 H Creatinine 6.16 H* Estim Creat Clear Calc 9.6 Estimated GFR 9 POC Glucose 102 103 Random Glucose 86 Calcium 8.2 L Phosphorus 4.6 H Magnesium 1.9 Blood Type Antibody Screen Crossmatch 06/01/24 06/01/24 06/01/24 07:32 09:59 11:15 WBC RBC Hgb Hct MCV MCH MCHC RDW Plt Count MPV Immature Gran % (Auto) Neut % (Auto) Lymph % (Auto) [place] % (Auto) Eos % (Auto) Baso % (Auto) Lymph # (Auto) [place] # (Auto) Eos # (Auto) Baso # (Auto) Abs Immat Gran (auto) Absolute Neuts (auto) Absolute Nucleated RBC Nucleated RBC % (auto) Sodium Potassium Chloride Carbon Dioxide Anion Gap BUN Creatinine Estim Creat Clear Calc Estimated GFR POC Glucose 76 133 H Random Glucose Calcium Phosphorus Magnesium Blood Type A Positive Antibody Screen NEGATIVE Crossmatch See Detail Microbiology Microbiology Results: Microbiology 05/30/24 20:25 Blood - Venous Blood Culture - Preliminary Staphylococcus aureus 05/30/24 20:25 Blood - Venous Blood Culture - Preliminary Staphylococcus aureus Procedures Date of Service Date of Service: 06/01/24 Assessment & Plan Assessment and plan (1) ESRD (end stage renal disease): Status: Acute (2) Gram-positive bacteremia: Status: Acute (3) Sepsis: Status: Acute Plan This is an 84-year-old Canadian-speaking male with history of end-stage renal disease on hemodialysis, COPD, GERD, hyperlipidemia, PVD, hypothyroidism who presented to the emergency department with weakness and multiple episodes of vomiting found to have hypotension. Chest x-ray showed possible left lower lobe pneumonia. He was admitted to the ICU for vasopressor support. Blood cultures grew GPC. He was downgraded from the medical floor Yesterday ESRD on HD GPC sepsis- ? source - ? AVF but no obvious absceee/ Discharge fistuls is discoloured ? Pneumona Hypotension Anemia Continue HD K per protocal Vol Removal as tolerated repeat cultures pending ECHO ordered continue IV vancomycin Await final culture results-May need 4 weeks IV antibiotics- Depending on Antibiotic we can give on HD 1 unit RBCs during dialysis today follow CBC Time Spent With Patient Time: Total time managing care of this patient today ____ minutes. Progress Note: Quality Stroke Does the patient have a stroke diagnosis?: No
--- NOTE | 2024-06-01 15:23 | MHC.SL.SWA ---
Speech Pathologist Impression: Risk of Aspiration, Oropharyngeal Dysphagia Risk of Aspiration Due to: History of Pneumonia Dysphasia Diet Status: No Change Liquid Consistency and Strategies for Safe Swallow: Liquid Intake Recommendation: Thin Liquid Intake Strategies: Small Sips Double Swallow Solid Food Consistency: Dietary Recommendations: Regular Additional Modifications to Solid Foods: Recommend supervision at meals, provide assistance with set up of tray, cut meat into small pieces, and throughout feeding as needed. Precautions recommended given hx of esophageal dysmotility and MBSS 02/26/21 showing presence of pharyngeal residue: take small bites, chew food well, alternate each bite with sips of liquid, dry swallow between bites, upright 90 degree position while eating and for at least 30 minutes afterwards. Oral Medication Intake: Whole with Liquid Please contact the pharmacy regarding appropriate crushable or liquid drug formulations that are available whenever modified delivery is recommended. Compensatory Strategies and Precautions to be Taken for Safe Swallow: Sitting Upright (90 deg) Small Bites and Sips Alternate Liquids/Solids Rate of Ingestion Change Supervision While Eating and Drinking for Safe Swallow: Total Supervision (1:1) Swallowing Recommended Treatments: Compens. Strategy Educat. Recommendation for Speech: Inpatient Speech Therapy Comment: 1-2 f/u Frequency/Duration: Date Range for Service Req: Timeline to reassess: Court Stenographer Clinican/Clinical Fellow: No Supervisory Statement: I have reviewed and agree with the student/clinical fellow's documentation: N/A Speech Language Pathologist: Dora Redding M.A., CCC-STRING TOP SEALER
[2024-06-01 18:13] LABS: Glucose, Whole Blood 104 mg/dL (60-115)
[2024-06-01 20:41] LABS: Vancomycin Random 12.9 mcg/mL (15-20)
[2024-06-01] MEDS: vancomycin HCL 500 MG in 0.9 % Sodium Chloride 100 ML 110 MG IV (21:02)
[2024-06-01 21:23] LABS: Glucose, Whole Blood 137 mg/dL (60-115)
[2024-06-02] MEDS: Enoxaparin Sodium 30 MG/0.3 ML SYRINGE SUBCUT ×2 (00:23→23:23)
[2024-06-02 03:34] VITALS: BP 138/62; PULSE 67; RESP 18; TEMP 36.5; O2SAT 93
[2024-06-02 06:00] VITALS: BMI 25.5
[2024-06-02] MEDS: Omeprazole 40 MG CAPSULE.DR PO (06:55)
[2024-06-02] MEDS: Levothyroxine Sodium 50 MCG TABLET PO (06:55)
--- NOTE | 2024-06-02 07:00 | CA_ITS ---
Transthoracic Echocardiogram Patient (Last, First, Middle): Bi Forrest, Gender: Male Date of : 1940 Age: 84 Procedure Date: 06/02/2024 Procedure Type: Transthoracic Echocardiogram [place] [facility] [place]: 182.88 cm Weight: 88.45 kg BSA: 2.11 m2 Heart Rate: 70 bpm BP: 142 / 66 mmHg Airplane Pilot Chief: YASMEEN Referring MD: Michelle ROQUE Symptoms: bacteremia; eval for endocarditis Study Quality: Fair ECG Rhythm: Sinus Conclusions: - Normal left ventricular cavity size. There is moderately increased left ventricular wall thickness. The left ventricular systolic function is hyperdynamic. The visually estimated ejection fraction is >70%. - Elevated filling pressures. - Normal right ventricular cavity size and systolic function. - There is mild to moderate aortic valve stenosis. - There is mild dilatation of the sinuses of Valsalva measuring 4.00 cm and mild dilatation of the ascending aorta measuring 3.80 cm. Findings Left Ventricle Normal left ventricular cavity size. There is moderately increased left ventricular wall thickness. The left ventricular systolic function is hyperdynamic. The visually estimated ejection fraction is >70%. There is no evidence of regional wall motion abnormalities. Abnormal diastolic function is noted. Spectral Doppler is indicative of a pseudonormal filling pattern. Elevated filling pressures. Right Ventricle Normal right ventricular cavity size and systolic function. Atria The left atrium is mildly dilated. The right atrium is mildly dilated. Aortic Valve There is a normal trileaflet aortic valve. There is mild calcification of the aortic valve. There is mild to moderate aortic valve stenosis. There is no aortic valve regurgitation. Mitral Valve The mitral valve appears normal. There is trace mitral valve regurgitation. There is no mitral valve stenosis. Pulmonic Valve Normal pulmonic valve structure and function. There is trace pulmonic valve regurgitation. Tricuspid Valve Normal tricuspid valve structure. There is mild tricuspid valve regurgitation. Normal right atrial pressure. There is no evidence of pulmonary hypertension. Great Vessels There is mild dilatation of the sinuses of Valsalva measuring 4.00 cm and mild dilatation of the ascending aorta measuring 3.80 cm. Venous The inferior vena cava is normal in size and collapses greater than 50% with inspiration. Pericardium/Pleural There is no evidence of pericardial effusion. Prior Study Comparison No prior study available for comparison. Measurements 2D Linear Measurements IVSd: 1.52 0.6-0.9/0.6-1.0 cm LVIDd: 4.25 3.9-5.3/4.2-5.9 cm LVIDd Index: 2.01 2.4-3.2/2.2-3.1 cm/m2 LVIDs: 2.72 2.0-3.6 cm LVPWd: 1.30 0.7-1.1 cm LA Diam: 4.10 2.7-3.8/3.0-4.0 cm LAIDs Index: 1.94 1.5-2.3 cm/m2 LV Mass: 287.69 67-162/88-224 g LV Mass Index: 136.35 43-95/49-115 g/m2 LVOT Diam: 2.30 3.0+(-)1.3 cm 2D Systolic Function EF 4C: 57.90 >55% EF 2C: 75.40 >55% EF BiP: 68.50 >55% Mitral Valve MV Pk E: 1.17 MV PK A: 0.97 MV Decel Time: 259.00 E/A: 1.20 E'Lateral: 6.53 E'Medial: 6.64 E/E' Med: 17.60 E/E' Lat: 17.90 PHT: 76.00 MVA PHT: 2.89 Decel [place]: 4.52 Aortic Valve AoV Pk Vicente: 2.84 AoV Mn Vicente: 2.04 AoV VTI: 0.61 AoV Pk Grad: 32.00 Aov Mn Grad: 19.00 AGUSTINA Cont.VTI: 1.99 LVOT LVOT Pk Vicente: 1.39 LVOT Mn Vicente: 1.02 LVOT VTI: 0.29 LVOT Pk Grad: 8.00 LVOT Mn Grad: 5.00 LVOT Diam: 2.30 LVOT Area: 4.15 Diastolic Function MV Pk E: 1.17 MV Pk A: 0.97 E/A: 1.20 E'Medial: 6.64 E/E' Med: 17.60 E' Laterial: 6.53 E/E' Lat: 17.90 Right Ventricle TAPSE (mm): 18.30 TVS' Vicente: 10.40 Tricuspid Valve TR Pk Vicente: 2.72 TR Pk Grad: 30.00 RA Press: 3.00 RVSP: 33.00 Great Vessels Aorta Sinus of Valsalva: 4.00 2.0-3.5 cm Ao Asc: 3.80 2.1-3.4 cm Pulmonary Valve PV Pk Vicente: 0.98 Peak PV Grad: 4.00 Updated in Other Vendor System with Status of Final Alonzo Quintana MD electronically signed on 06/02/2024 6:02:23 PM with status of Final
[2024-06-02 07:39] LABS: Glucose, Whole Blood 86 mg/dL (60-115)
[2024-06-02 08:00] VITALS: BP 133/85; PULSE 69; RESP 18; TEMP 36.2; O2SAT 96
[2024-06-02 08:21] LABS: Hematocrit 27.4 % (42.0-52.0); Hemoglobin 8.8 g/dl (14.0-18.0); Mean Corpuscular HGB Conc 32.1 g/dl (31.0-36.0); Mean Corpuscular Hemoglobin 28.5 pg (27.0-33.0); Mean Corpuscular Volume 88.7 fL (80.0-98.0); Mean Platelet Volume 13.6 fL (9.4-12.4); Platelet Count 88 X10*3/uL (160-400); Red Blood Count 3.09 X10*6/uL (4.60-5.80); Red Cell Distribution Width 17.3 % (11.0-16.0); White Blood Count 5.6 X10*3/uL (4.8-10.8)
[2024-06-02 08:50] LABS: Alanine Aminotransferase 54 U/L (0-40); Albumin Level 3.2 g/dL (3.5-5.0); Alkaline Phosphatase 56 U/L (39-117); Anion Gap 14 (12-20); Aspartate Amino Transferase 76 U/L (5-37); Bilirubin Direct 0.2 mg/dL (0.0-0.5); Bilirubin Total 0.7 mg/dL (0.0-1.0); Blood Urea Nitrogen 28 mg/dL (9-16); Calcium 8.8 mg/dL (8.4-10.2); Carbon Dioxide 25 mmol/L (22-29); Chloride 103 mmol/L (96-108); Creatinine Clr Calc Pharmacy 12.6; Estimated Glomerular Filt Rate 12; Glucose Random 88 mg/dL (60-115); Potassium 3.7 mmol/L (3.3-5.1); Sodium 138 mmol/L (135-145)
[2024-06-02] MEDS: Cholecalciferol (Vitamin D3) 25 MCG TABLET PO (10:10)
[2024-06-02] MEDS: Folic Acid 1 MG TABLET PO (10:10)
[2024-06-02] MEDS: Cyanocobalamin (Vitamin B-12) 1,000 MCG TABLET 1000 MCG PO (10:10)
[2024-06-02] MEDS: allopurinoL 100 MG TABLET PO (10:10)
[2024-06-02] MEDS: Aspirin Enteric Coated 81 MG TABLET.DR PO (10:10)
[2024-06-02 11:51] VITALS: BP 144/79; PULSE 66; RESP 18; TEMP 36.8; O2SAT 98
--- NOTE | 2024-06-02 11:58 | P.PNIM_ITS ---
Subjective Subjective Date of Service: 06/02/24 Interval History: Seen and examined this morning Follow-up for staph bacteremia History obtained with the assistance of a college physics instructor Reports dry cough for the past 3-4 days, no shortness of breath, no fever Review of Systems Review of Systems: Yes all other systems are reviewed and are negative Constitutional Constitutional: Denies chills and Denies fever(s) Cardiovascular Cardiovascular: Denies chest pain, Denies palpitations and Denies dyspnea Respiratory Respiratory: Reports cough and Denies dyspnea Endocrine Endocrine: Denies palpitations Physical Exam 2 Vital Signs: Vital Signs: Last Vital Signs Temp 98.2 F 06/02/24 11:51 Pulse 66 06/02/24 11:51 Resp 18 06/02/24 11:51 BP 144/79 H 06/02/24 11:51 Pulse Ox 98 06/02/24 11:51 O2 Del Method Room Air 06/02/24 11:51 O2 Flow Rate 2 05/31/24 13:56 BMI result Body Mass Index 25.5 Const: General: cooperative, comfortable, no acute distress, alert and awake Nutritional Appearance: average body habitus Orientation/consciousness: p atient oriented x3 Resp: Effort & Inspection: normal respiratory effort, able to speak in complete sentences, no respiratory distress and no use of accessory muscles A uscultation: clear to auscultation bilaterally Cardio: Rate: regular rate GI: Inspection: No distended Palpation (GI): Soft to palpation and nontender Neuro: General: patient oriented x3, moves all extremities and CN's II-XI intact bilaterally Extrem: Other: LUE AVF with palpable thrill, nontender, no redness General: Yes no pedal edema Objective Data Active Medications Acetaminophen (Acetaminophen 325 Mg Tablet) 650 mg PO Q4H PRN PRN Reason: Pain, Mild (Pain Scale 1-3) Last Admin: 06/01/24 11:48 Dose: 650 mg Documented By: EDWINA Allopurinol (Allopurinol 100 Mg Tablet) [address] [facility] Last Admin: 06/02/24 10:10 Dose: 100 mg Documented By: GAGANDEEP Aspirin (Aspirin Enteric Coated 81 Mg Tablet.) [address] [facility] Last Admin: 06/02/24 10:10 Dose: 81 mg Documented By: GAGANDEEP Cyanocobalamin (Cyanocobalamin (Vitamin B-12) 1,000 Mcg Tablet) 1,[address] [facility] Last Admin: 06/02/24 10:10 Dose: 1,000 mcg Documented By: GAGANDEEP Enoxaparin Sodium (Enoxaparin Sodium 30 Mg/0.3 Ml Syringe) [address] [facility] Last Admin: 06/02/24 00:23 Dose: 30 mg Documented By: DENNIS Folic Acid (Folic Acid 1 Mg Tablet) [address] [facility] Last Admin: 06/02/24 10:10 Dose: 1 mg Documented By: GAGANDEEP Vancomycin HCl 1,000 mg/ (Sodium Chloride) 270 mls @ 270 mls/hr IV Q24H [facility] Levothyroxine Sodium (Levothyroxine Sodium 50 Mcg Tablet) 50 mcg PO DAILY@0600 [facility] Last Admin: 06/02/24 06:55 Dose: 50 mcg Documented By: DENNIS Omeprazole (Omeprazole 40 Mg Capsule.Dr) 40 mg PO DAILY@0630 [facility] Last Admin: 06/02/24 06:55 Dose: 40 mg Documented By: DENNIS Pharmacy Consult (Consult Rx Anticoag Dosing) 1 each MISCELLANE DAILY PRN; Protocol PRN Reason: Consult order Pharmacy Consult (Consult Rx Vancomycin Dosing) 1 each MISCELLANE DAILY PRN PRN Reason: Consult order Vitamin D (Cholecalciferol (Vitamin D3) 25 Mcg Tablet) [address] [facility] Last Admin: 06/02/24 10:10 Dose: 25 mcg Documented By: GAGANDEEP Labs 06/02/24 07:47 06/02/24 07:47 Labs: Laboratory Results - last 24 hr 06/01/24 06/01/24 06/01/24 09:59 18:08 20:17 MCV MCH MCHC RDW Plt Count MPV Absolute Nucleated RBC Nucleated RBC % (auto) Anion Gap Estim Creat Clear Calc Estimated GFR POC Glucose 104 Random Glucose Calcium Total Bilirubin Direct Bilirubin AST ALT Alkaline Phosphatase Total Protein Albumin Random Vancomycin 12.9 L Blood Type A Positive Antibody Screen NEGATIVE Crossmatch See Detail 06/01/24 06/02/24 06/02/24 21:11 07:32 07:47 MCV 88.7 MCH 28.5 MCHC 32.1 RDW 17.3 H Plt Count 88 L MPV 13.6 H Absolute Nucleated RBC 0.000 Nucleated RBC % (auto) 0.0 Anion Gap 14 Estim Creat Clear Calc 12.6 Estimated GFR 12 POC Glucose 137 H 86 Random Glucose 88 Calcium 8.8 D Total Bilirubin 0.7 Direct Bilirubin 0.2 AST 76 H ALT 54 H Alkaline Phosphatase 56 Total Protein 6.0 L Albumin 3.2 L Random Vancomycin Blood Type Antibody Screen Crossmatch Microbiology Microbiology Results: Microbiology 06/01/24 07:46 Blood Culture - Preliminary Blood - Venous No growth after 24 hours. 06/01/24 07:46 Blood Culture - Preliminary Blood - Venous No growth after 24 hours. 05/30/24 20:25 Blood Culture - Final Blood - Venous Staphylococcus aureus 05/30/24 20:25 Blood Culture - Final Blood - Venous Staphylococcus aureus Assessment and Plan (1) ESRD (end stage renal disease): Status: Acute (2) Gram-positive bacteremia: Status: Acute Plan This is an 84-year-old Vietnamese-speaking male with history of end-stage renal disease on hemodialysis, COPD, GERD, hyperlipidemia, PVD, hypothyroidism who presented to the emergency department with weakness and multiple episodes of vomiting found to have hypotension. Chest x-ray showed possible left lower lobe pneumonia. He was admitted to the ICU for vasopressor support. Blood cultures grew GPC. He was downgraded from the medical floor on May 31. MSSA bacteremia ?due to pneumonia has AVF but no erythema, tenderness, drainage repeat cultures negative at 24 hours ECHO ordered and pending Initially treated with IV vancomycin, will change to cefazolin 2gm WMF after HD Await final culture results ID consult pending septic shock due to bacteremia and possible pneumonia cxr showing possible pneumonia initially treated with IV vanco and zosyn - zosyn stopped in ICU. transitioning to cefazolin as above cultures growing MSSA due to history of dysphagia seen by speech- no signs of aspiration Elevated troponin Likely type 2 due to demand from hypotension No chest pain ESRD on HD MWF schedule nephrology following Acute on chronic anemia, likely of chronic disease No evidence of acute blood loss s/p 1 unit RBCs 06/01 with improvement in H/H Thrombocytopenia Chronic Follow CBC Hypothyroidism Continue Synthroid Mild transaminitis Likely due to hypotension Trend LFTs GERD Continue PPI DVT prophylaxis Lovenox Patient will need ongoing stay in the hospital for management of bacteremia requiring IV antibiotics Quality Stroke Does the patient have a stroke diagnosis?: No VTE Prior VTE?: No VTE Risk Level:: Medical - moderate - high VTE Device Contraindication: N/A - Device Ordered VTE Drug Contraindication: N/A - Med Ordered
[2024-06-02 12:51] LABS: Glucose, Whole Blood 124 mg/dL (60-115)
--- NOTE | 2024-06-02 14:29 | P.CNID_ITS ---
History of Present Illness Data of Consult Service Date: 06/02/24 Requesting physician: Michelle Rg Primary Care Provider: [facility] Reason for consult: MSSA bacteremia He presents with weakness and hypotension at dialysis. He has some possible discoloration at line. He has some streaky basilar infiltrates and pulmonary edema. He has no fever or chills now. Review of Systems 2 Review of Systems: Yes all other systems are reviewed and are negative [facility] Past Medical History Medical History (Updated 06/02/24 @ 14:33 by Kate Jha MD) MSSA bacteremia ESRD (end stage renal disease) Dialysis patient COVID-19 vaccine administered Renal failure COPD (chronic obstructive pulmonary disease) Thyroid disease GERD (gastroesophageal reflux disease) Elevated cholesterol PVD (peripheral vascular disease) Prostate CA HTN (hypertension) Heart attack Family History Family history: reviewed and not pertinent Surgical History Surgical History Hx of cataract surgery Hx of cystoscopy History of incision and drainage H/O colonoscopy Hx of aortic valve replacement Hx of CABG Social History Social History Household Members: Family Housing: House Are you a primary gericare aide teacher to a significant other at home: No Do you presently have visiting nurse or other home services: No Alcohol intake: never Patient Tobacco Use Status: Never used Tobacco Smoked in Last 30 Days: No Use of substances other than those prescribed or required for medical reasons: No Currently Displaying Signs/Symptoms of Drug Intoxication Withdrawal: No Have you been hit, kicked, punched, or otherwise hurt by someone within the past year? If so, by whom?: No Do you feel safe in your current relationship?: No Current Relationship Is there a partner from a previous relationship who is making you feel unsafe now?: No Are you made to feel afraid or neglected: No Advance Directives: No Advance Directives Information Provided: No Do you have a plan to hurt others: No Plan Recently lost weight without trying: No Eating poorly because of decreased appetite: No Nutrition Risks: No Nutritional Risk Poor oral hygiene: No service: No Current occupational status: disabled Meds Allergies Allergy/AdvReac Type Severity Reaction Status Date / Time No Known Allergies Allergy Mild NONE Verified 05/30/24 20:06 Active Medications: Current Medications Acetaminophen (Acetaminophen 325 Mg Tablet) 650 mg PO Q4H PRN PRN Reason: Pain, Mild (Pain Scale 1-3) Last Admin: 06/01/24 11:48 Dose: 650 mg Allopurinol (Allopurinol 100 Mg Tablet) 100 mg PO DAILY [facility]S [facility]CLUDE 234 BEDS AT [facility] Last Admin: 06/02/24 10:10 Dose: 100 mg Aspirin (Aspirin Enteric Coated 81 Mg Tablet.) 81 mg PO DAILY COUNTS INCLUDE 234 BEDS AT [facility] Last Admin: 06/02/24 10:10 Dose: 81 mg Cyanocobalamin (Cyanocobalamin (Vitamin B-12) 1,000 Mcg Tablet) 1,000 mcg PO DAILY COUNTS INCLUDE 234 BEDS AT [facility] Last Admin: 06/02/24 10:10 Dose: 1,000 mcg Enoxaparin Sodium (Enoxaparin Sodium 30 Mg/0.3 Ml Syringe) 30 mg SUBCUT Q24H COUNTS INCLUDE 234 BEDS AT [facility] Last Admin: 06/02/24 00:23 Dose: 30 mg Folic Acid (Folic Acid 1 Mg Tablet) 1 mg PO DAILY COUNTS INCLUDE 234 BEDS AT [facility] Last Admin: 06/02/24 10:10 Dose: 1 mg Cefazolin Sodium/Dextrose (Ancef) 2 gm in 50 mls @ 100 mls/hr IV MoWeFr@1800 COUNTS INCLUDE 234 BEDS AT [facility] Levothyroxine Sodium (Levothyroxine Sodium 50 Mcg Tablet) 50 mcg PO DAILY@0600 COUNTS INCLUDE 234 BEDS AT [facility] Last Admin: 06/02/24 06:55 Dose: 50 mcg Omeprazole (Omeprazole 40 Mg Capsule.) 40 mg PO DAILY@0630 COUNTS INCLUDE 234 BEDS AT [facility] Last Admin: 06/02/24 06:55 Dose: 40 mg Pharmacy Consult (Consult Rx Anticoag Dosing) 1 each MISCELLANE DAILY PRN; Protocol PRN Reason: Consult order Vitamin D (Cholecalciferol (Vitamin D3) 25 Mcg Tablet) 25 mcg PO DAILY COUNTS INCLUDE 234 BEDS AT [facility] Last Admin: 06/02/24 10:10 Dose: 25 mcg Home Medications ?Medication ?Instructions ?Recorded ?Confirmed ?Last Taken ?Type allopurinol 100 mg tablet 100 mg PO DAILY 12/30/20 05/31/24 06/28/23 History aspirin 81 mg tablet,delayed 81 mg PO DAILY 12/30/20 05/31/24 06/28/23 History release atorvastatin 80 mg tablet 80 mg PO BEDTIME 12/30/20 05/31/24 06/28/23 History cholecalciferol (vitamin D3) 25 25 mcg PO DAILY 12/30/20 05/31/24 06/28/23 History mcg (1,000 unit) capsule (Vitamin D3) levothyroxine 50 mcg tablet 50 mcg PO DAILY@0600 12/30/20 05/31/24 06/28/23 History omeprazole 20 mg capsule,delayed 20 mg PO DAILY@0630 12/30/20 06/01/24 06/28/23 History release cyanocobalamin (vitamin B-12) 1,000 mcg PO DAILY 06/10/23 05/31/24 06/28/23 History 1,000 mcg tablet cyclosporine 0.05 % eye drops 1 drp ophthalmic (eye) BID 06/10/23 05/31/24 06/28/23 History (Restasis MultiDose) Physical Exam 2 Vital Signs: Vital Signs: Last Vital Signs Temp 98.2 F 06/02/24 11:51 Pulse 66 06/02/24 11:51 Resp 18 06/02/24 11:51 BP 144/79 H 06/02/24 11:51 Pulse Ox 98 06/02/24 11:51 O2 Del Method Room Air 06/02/24 11:51 O2 Flow Rate 2 05/31/24 13:56 BMI result Body Mass Index 25.5 Const: General: cooperative HEENT: Head: Yes normal to inspection Face and sinus: Yes normal facial exam Mouth: Normal oral and palatal mucosa present Teeth and gingiva: d entition normal Eyes: General: appearance normal, both eyes and all related structures P upils: Equal, round and reactive pupils present Resp: Effort & Inspection: normal respiratory effort Cardio: Rate: regular rate Rhythm: regular rhythm GI: Palpation (GI): Soft to palpation and nontender : General: Yes no CVA tenderness Back/Spine/Pelvis: Back: no CVA tenderness Skin: General skin exam: no rashes or lesions noted Neuro: General: moves all extremities Cranial nerves: Yes Equal, round and reactive pupils present Extrem: Other: AVF unremarkable General: Yes normal to inspection Psych: Appearance: grossly normal Results Labs 06/02/24 07:47 06/02/24 07:47 Labs: Short CBC 06/02/24 Range/Units 07:47 WBC 5.6 (4.8-10.8) X10*3/uL Hgb 8.8 L (14.0-18.0) g/dl Hct 27.4 L (42.0-52.0) % Plt Count 88 L (160-400) X10*3/uL BMP 06/02/24 07:47 Sodium 138 Potassium 3.7 Chloride 103 Carbon Dioxide 25 BUN 28 H Creatinine 4.67 H* Calcium 8.8 D Liver Function 06/02/24 Range/Units 07:47 Total Bilirubin 0.7 (0.0-1.0) mg/dL Direct Bilirubin 0.2 (0.0-0.5) mg/dL AST 76 H (5-37) U/L ALT 54 H (0-40) U/L Alkaline Phosphatase 56 (39-117) U/L Albumin 3.2 L (3.5-5.0) g/dL Microbiology Microbiology Results: Microbiology 06/01/24 07:46 Blood - Venous Blood Culture - Preliminary No growth after 24 hours. 06/01/24 07:46 Blood - Venous Blood Culture - Preliminary No growth after 24 hours. 05/30/24 20:25 Blood - Venous Blood Culture - Final Staphylococcus aureus 05/30/24 20:25 Blood - Venous Blood Culture - Final Staphylococcus aureus Assessment and Plan (1) ESRD (end stage renal disease): Status: Acute (2) MSSA bacteremia: Status: Acute Plan This is not lobar pneumonia ,only mild CHF probable and no lobar infiltrate and no hypoxia. I think MSSA bacteremia related to AVF. If bacteremia clears 72 hours then Kefzol 2 g post HD for 4 weeks. If doesnt clear Renal to address fistula access. Check echo evaluate endocarditis and consider CT abdomen and pelvis without contrast.
[2024-06-02 15:37] VITALS: BP 152/70; PULSE 69; RESP 20; TEMP 36.2; O2SAT 96
[2024-06-02 16:38] LABS: Glucose, Whole Blood 118 mg/dL (60-115)
[2024-06-02 20:00] VITALS: BP 153/67; PULSE 66; RESP 18; TEMP 36.2; O2SAT 97
[2024-06-02 21:14] LABS: Glucose, Whole Blood 105 mg/dL (60-115)
[2024-06-03] VITALS (7 sets, daily range): BP systolic 131–164; BP diastolic 57–73; PULSE 64–68; RESP 14–20; TEMP 36.1–37.4; O2SAT 92–98; BMI 25.8
[2024-06-03] MEDS: Levothyroxine Sodium 50 MCG TABLET PO (06:39)
[2024-06-03] MEDS: Omeprazole 40 MG CAPSULE.DR PO (06:39)
[2024-06-03 07:40] LABS: Glucose, Whole Blood 77 mg/dL (60-115)
[2024-06-03] MEDS: allopurinoL 100 MG TABLET PO (10:45)
[2024-06-03] MEDS: Cholecalciferol (Vitamin D3) 25 MCG TABLET PO (10:45)
[2024-06-03] MEDS: Cyanocobalamin (Vitamin B-12) 1,000 MCG TABLET 1000 MCG PO (10:45)
[2024-06-03] MEDS: Aspirin Enteric Coated 81 MG TABLET.DR PO (10:46)
[2024-06-03] MEDS: Folic Acid 1 MG TABLET PO (10:46)
--- NOTE | 2024-06-03 11:05 | HO.PM.IMPN ---
Subjective Subjective Date of Service: 06/03/24 Interval History: seen and examined this morning follow up for MSSA bacteremia No overnight events History obtained with the assistance of a rigging and controls aircraft mechanic Patient feeling well, no fever, no chills. No abdominal pain. minimal dry cough Review of Systems Review of Systems: Yes all other systems are reviewed and are negative Constitutional Constitutional: Denies chills and Denies fever(s) Cardiovascular Cardiovascular: Denies chest pain, Denies palpitations and Denies dyspnea Respiratory Respiratory: Denies cough and Denies dyspnea Gastrointestinal Gastrointestinal: Denies abdominal pain Endocrine Endocrine: Denies palpitations Physical Exam Vital Signs: Vital Signs: Last Vital Signs Temp 97.8 F 06/03/24 07:46 Pulse 65 06/03/24 07:46 Resp 18 06/03/24 07:46 BP 137/68 06/03/24 07:46 Pulse Ox 94 06/03/24 07:46 O2 Del Method Room Air 06/03/24 07:46 O2 Flow Rate 95 06/03/24 07:46 BMI result Body Mass Index 25.8 Const: General: cooperative, comfortable, no acute distress, alert and awake Nutritional Appearance: average body habitus Orientation/consciousness: patient oriented x3 Resp: Effort & Inspection: normal respiratory effort, able to speak in complete sentences, no respiratory distress and no use of accessory muscles Auscultation: clear to auscultation bilaterally Cardio: Rate: regular rate GI: Inspection: No distended Palpation (GI): Soft to palpation and nontender Skin: Other: LUE AVF with two shallow ulcerations, non tender to palpation, no drainage Neuro: General: patient oriented x3, moves all extremities and CN's II-XI intact bilaterally Extrem: Other: LUE AVF with palpable thrill, nontender, no redness General: Yes no pedal edema Objective Data Active Medications Acetaminophen (Acetaminophen 325 Mg Tablet) 650 mg PO Q4H PRN PRN Reason: Pain, Mild (Pain Scale 1-3) Last Admin: 06/01/24 11:48 Dose: 650 mg Documented By: EDWINA Allopurinol (Allopurinol 100 Mg Tablet) 100 mg PO DAILY [facility] Last Admin: 06/03/24 10:45 Dose: 100 mg Documented By: GAGANDEEP Aspirin (Aspirin Enteric Coated 81 Mg Tablet.) 81 mg PO DAILY [facility] Last Admin: 06/03/24 10:46 Dose: 81 mg Documented By: GAGANDEEP Cyanocobalamin (Cyanocobalamin (Vitamin B-12) 1,000 Mcg Tablet) 1,000 mcg PO DAILY [facility] Last Admin: 06/03/24 10:45 Dose: 1,000 mcg Documented By: GAGANDEEP Enoxaparin Sodium (Enoxaparin Sodium 30 Mg/0.3 Ml Syringe) 30 mg SUBCUT Q24H [facility] Last Admin: 06/02/24 23:23 Dose: 30 mg Documented By: DENNIS Folic Acid (Folic Acid 1 Mg Tablet) 1 mg PO DAILY [facility] Last Admin: 06/03/24 10:46 Dose: 1 mg Documented By: GAGANDEEP Cefazolin Sodium/Dextrose (Ancef) 2 gm in 50 mls @ 100 mls/hr IV MoWeFr@1800 [facility] Levothyroxine Sodium (Levothyroxine Sodium 50 Mcg Tablet) 50 mcg PO DAILY@0600 [facility] Last Admin: 06/03/24 06:39 Dose: 50 mcg Documented By: DENNIS Omeprazole (Omeprazole 40 Mg Capsule.) 40 mg PO DAILY@0630 [facility] Last Admin: 06/03/24 06:39 Dose: 40 mg Documented By: DENNIS Pharmacy Consult (Consult Rx Anticoag Dosing) 1 each MISCELLANE DAILY PRN; Protocol PRN Reason: Consult order Vitamin D (Cholecalciferol (Vitamin D3) 25 Mcg Tablet) 25 mcg PO DAILY [facility] Last Admin: 06/03/24 10:45 Dose: 25 mcg Documented By: GAGANDEEP Labs 06/02/24 07:47 06/02/24 07:47 Labs: Laboratory Results - last 24 hr 06/02/24 06/02/24 06/02/24 11:47 16:31 21:01 POC Glucose 124 H 118 H 105 06/03/24 07:34 POC Glucose 77 Microbiology Microbiology Results: Microbiology 06/01/24 07:46 Blood Culture - Preliminary Blood - Venous No growth after 48 hours. 06/01/24 07:46 Blood Culture - Preliminary Blood - Venous No growth after 48 hours. 05/30/24 20:25 Blood Culture - Final Blood - Venous Staphylococcus aureus 05/30/24 20:25 Blood Culture - Final Blood - Venous Staphylococcus aureus Assessment and Plan (1) MSSA bacteremia: Status: Acute (2) ESRD (end stage renal disease): Status: Acute Plan This is an 84-year-old [place]araguan-speaking male with history of end-stage renal disease on hemodialysis, COPD, GERD, hyperlipidemia, PVD, hypothyroidism who presented to the emergency department with weakness and multiple episodes of vomiting found to have hypotension. Chest x-ray showed possible left lower lobe pneumonia. He was admitted to the ICU for vasopressor support. Blood cultures grew GPC. He was downgraded from the medical floor on May 31. MSSA bacteremia per ID less likely due to pneumonia has AVF with overlying shallow ulceration but no erythema, tenderness, drainage Initially treated with IV vancomycin, will change to cefazolin 2gm WMF after HD echo with no reported vegetations abdominal CT with no source of infection plan for 4 weeks of Kefzol 2 g post hemodialysis as long as repeat blood cultures remained negative at 72 hours. If turn positive we will need to address fistula access. blood cultures negative at 48 hours septic shock due to bacteremia and possible pneumonia cxr showing possible pneumonia initially treated with IV vanco and zosyn - zosyn stopped in ICU. transitioning to cefazolin as above cultures growing MSSA due to history of dysphagia seen by speech- no signs of aspiration, continue regular diet Elevated troponin Likely type 2 due to demand from hypotension No chest pain ESRD on HD MWF schedule nephrology following Acute on chronic anemia, likely of chronic disease No evidence of acute blood loss s/p 1 unit RBCs 06/01 with improvement in H/H Thrombocytopenia Chronic Follow CBC Hypothyroidism Continue Synthroid Mild transaminitis Likely due to hypotension Trend LFTs GERD Continue PPI DVT prophylaxis Lovenox Patient will need ongoing stay in the hospital for management of bacteremia requiring IV antibiotics Quality Stroke Does the patient have a stroke diagnosis?: No VTE Prior VTE?: No VTE Risk Level:: Medical - moderate - high VTE Device Contraindication: N/A - Device Ordered VTE Drug Contraindication: N/A - Med Ordered
[2024-06-03 16:23] LABS: Glucose, Whole Blood 109 mg/dL (60-115)
[2024-06-03] MEDS: Enoxaparin Sodium 30 MG/0.3 ML SYRINGE SUBCUT (23:47)
[2024-06-04 03:25] VITALS: BP 150/70; PULSE 62; RESP 20; TEMP 36.7; O2SAT 97
[2024-06-04] MEDS: Omeprazole 40 MG CAPSULE.DR PO (05:32)
[2024-06-04] MEDS: Levothyroxine Sodium 50 MCG TABLET PO (05:32)
[2024-06-04 06:00] VITALS: BMI 25.4
[2024-06-04 06:32] LABS: Anion Gap 17 (12-20); Blood Urea Nitrogen 57 mg/dL (9-16); Calcium 8.8 mg/dL (8.4-10.2); Carbon Dioxide 24 mmol/L (22-29); Chloride 103 mmol/L (96-108); Creatinine Clr Calc Pharmacy 7.3; Estimated Glomerular Filt Rate 6; Glucose Random 88 mg/dL (60-115); Potassium 4.2 mmol/L (3.3-5.1); Sodium 140 mmol/L (135-145)
[2024-06-04 07:44] VITALS: BP 157/73; PULSE 67; RESP 18; TEMP 36.1; O2SAT 95
[2024-06-04] MEDS: Aspirin Enteric Coated 81 MG TABLET.DR PO (07:46)
[2024-06-04] MEDS: Cholecalciferol (Vitamin D3) 25 MCG TABLET PO (07:46)
[2024-06-04] MEDS: Folic Acid 1 MG TABLET PO (07:46)
[2024-06-04] MEDS: Cyanocobalamin (Vitamin B-12) 1,000 MCG TABLET 1000 MCG PO (07:46)
[2024-06-04] MEDS: allopurinoL 100 MG TABLET PO (07:46)
--- NOTE | 2024-06-04 08:14 | HO.PM.IMPN ---
Subjective Subjective Date of Service: 06/04/24 Interval History: seen and examined this morning follow up for MSSA bacteremia No overnight events History obtained with the assistance of a tile and marble setter Patient feeling well, no fever, no chills. No compliants, due for HD Review of Systems Review of Systems: Yes all other systems are reviewed and are negative Constitutional Constitutional: Denies chills and Denies fever(s) Cardiovascular Cardiovascular: Denies chest pain, Denies palpitations and Denies dyspnea Respiratory Respiratory: Denies cough and Denies dyspnea Gastrointestinal Gastrointestinal: Denies abdominal pain Endocrine Endocrine: Denies palpitations Physical Exam Vital Signs: Vital Signs: Last Vital Signs Temp 97.0 F 06/04/24 07:44 Pulse 67 06/04/24 07:44 Resp 18 06/04/24 07:44 BP 157/73 H 06/04/24 07:44 Pulse Ox 95 06/04/24 07:44 O2 Del Method Room Air 06/04/24 07:44 O2 Flow Rate 95 06/03/24 07:46 BMI result Body Mass Index 25.4 Constitutional - Awake and Alert, No apparent distress Eyes - PERRLA, EOMI Cardiovascular - S1S2, RRR, No edema Respiratory - Normal lung expansion, Normal respiratory effort, No respiratory distress, CTA bilaterally Gastrointestinal - NT / ND; +BS; No rebound or guarding Extremities - no calf tenderness bilaterally, no swelling Skin - Warm/Dry. Non pressure ulceration adjacent to AV fistula, no purulent drainage or surrounding erythema. See photo Neurological - moving all extremities Psychological - Appropriate affect Const: General: cooperative, comfortable, no acute distress, alert and awake Nutritional Appearance: average body habitus Orientation/consciousness: patient oriented x3 Resp: Effort & Inspection: normal respiratory effort, able to speak in complete sentences, no respiratory distress and no use of accessory muscles Auscultation: clear to auscultation bilaterally Cardio: Rate: regular rate GI: Inspection: No distended Palpation (GI): Soft to palpation and nontender Skin: Other: LUE AVF with two shallow ulcerations, non tender to palpation, no drainage Neuro: General: patient oriented x3, moves all extremities and CN's II-XI intact bilaterally Extrem: Other: LUE AVF with palpable thrill, nontender, no redness General: Yes no pedal edema Objective Data Active Medications Acetaminophen (Acetaminophen 325 Mg Tablet) 650 mg PO Q4H PRN PRN Reason: Pain, Mild (Pain Scale 1-3) Last Admin: 06/01/24 11:48 Dose: 650 mg Documented By: EDWINA Allopurinol (Allopurinol 100 Mg Tablet) 100 mg PO DAILY [facility] Last Admin: 06/04/24 07:46 Dose: 100 mg Documented By: KALINA Aspirin (Aspirin Enteric Coated 81 Mg Tablet.) 81 mg PO DAILY [facility] Last Admin: 06/04/24 07:46 Dose: 81 mg Documented By: KALINA Cyanocobalamin (Cyanocobalamin (Vitamin B-12) 1,000 Mcg Tablet) 1,000 mcg PO DAILY [facility] Last Admin: 06/04/24 07:46 Dose: 1,000 mcg Documented By: KALINA Enoxaparin Sodium (Enoxaparin Sodium 30 Mg/0.3 Ml Syringe) 30 mg SUBCUT Q24H [facility] Last Admin: 06/03/24 23:47 Dose: 30 mg Documented By: JOSE Folic Acid (Folic Acid 1 Mg Tablet) 1 mg PO DAILY [facility] Last Admin: 06/04/24 07:46 Dose: 1 mg Documented By: KALINA Cefazolin Sodium/Dextrose (Ancef) 2 gm in 50 mls @ 100 mls/hr IV MoWeFr@1800 [facility] Levothyroxine Sodium (Levothyroxine Sodium 50 Mcg Tablet) 50 mcg PO DAILY@0600 [facility] Last Admin: 06/04/24 05:32 Dose: 50 mcg Documented By: JOSE Omeprazole (Omeprazole 40 Mg Capsule.) 40 mg PO DAILY@0630 [facility] Last Admin: 06/04/24 05:32 Dose: 40 mg Documented By: JOSE Pharmacy Consult (Consult Rx Anticoag Dosing) 1 each MISCELLANE DAILY PRN; Protocol PRN Reason: Consult order Vitamin D (Cholecalciferol (Vitamin D3) 25 Mcg Tablet) 25 mcg PO DAILY [facility] Last Admin: 06/04/24 07:46 Dose: 25 mcg Documented By: KALINA Labs 06/02/24 07:47 06/04/24 05:45 Labs: Laboratory Results - last 24 hr 06/03/24 06/04/24 16:19 05:45 Hold Purple Top SEE NOTE Anion Gap 17 Estim Creat Clear Calc 7.3 Estimated GFR 6 POC Glucose 109 Random Glucose 88 Calcium 8.8 Microbiology Microbiology Results: Microbiology 06/01/24 07:46 Blood Culture - Preliminary Blood - Venous No growth after 48 hours. 06/01/24 07:46 Blood Culture - Preliminary Blood - Venous No growth after 48 hours. Assessment and Plan (1) MSSA bacteremia: Status: Acute (2) ESRD (end stage renal disease): Status: Acute Plan This is an 84-year-old [place]isian-speaking male with history of end-stage renal disease on hemodialysis, COPD, GERD, hyperlipidemia, PVD, hypothyroidism who presented to the emergency department with weakness and multiple episodes of vomiting found to have hypotension. Chest x-ray showed possible left lower lobe pneumonia. He was admitted to the ICU for vasopressor support. Blood cultures grew GPC. He was downgraded from the medical floor on May 31. MSSA bacteremia per ID less likely due to pneumonia has AVF with overlying shallow ulceration but no erythema, tenderness, drainage. Vascular surgery consult placed to evaluate wound over AV fistula, ?need for permacath Initially treated with IV vancomycin, will change to cefazolin 2gm WMF after HD echo with no reported vegetations abdominal CT with no source of infection plan for 4 weeks of Kefzol 2 g post hemodialysis as long as repeat blood cultures remained negative at 72 hours. If turn positive we will need to address fistula access. blood cultures negative at 48 hours septic shock due to bacteremia and possible pneumonia- downgraded from icu 05/31 cxr showing possible pneumonia initially treated with IV vanco and zosyn - zosyn stopped in ICU. transitioning to cefazolin as above cultures growing MSSA due to history of dysphagia seen by speech- no signs of aspiration, continue regular diet Elevated troponin Likely type 2 due to demand from hypotension No chest pain ESRD on HD MWF schedule nephrology following Acute on chronic anemia, likely of chronic disease No evidence of acute blood loss s/p 1 unit RBCs 06/01 with improvement in H/H Thrombocytopenia Chronic Follow CBC Hypothyroidism Continue Synthroid Mild transaminitis Likely due to hypotension Trend LFTs GERD Continue PPI DVT prophylaxis Lovenox Patient will need ongoing stay in the hospital for management of bacteremia requiring IV antibiotics, awaiting expert consultation. PT recommending STR Quality Stroke Does the patient have a stroke diagnosis?: No VTE Prior VTE?: No VTE Risk Level:: Medical - moderate - high VTE Device Contraindication: N/A - Device Ordered VTE Drug Contraindication: N/A - Med Ordered
--- NOTE | 2024-06-04 09:37 | CONS_ITS ---
DATE OF SERVICE: 06/01/2024 REASON FOR CONSULTATION: Consult requested by the medical team to evaluate and help in management of patient with ESRD, who has been admitted with sepsis. HISTORY OF PRESENT ILLNESS: The patient is an 84-year-old male, past medical history of hypertension; GERD; ESRD, on hemodialysis; COPD; hypertension, who presents to the ER with complaints of weakness and multiple episodes of vomiting. He did not have any chest pain or shortness of breath. There was no abdominal pain, nausea, vomiting, diarrhea. He was admitted on 05/31 and did have dialysis on 05/31. In the ER, patient was hypotensive, blood pressure was 84/36. Lab work showed the patient had hemoglobin of 9.2 and hematocrit of 28.9. Creatinine was 4.22. His lactic acid level was 2.9. Chest x-ray showed left lower lobe pneumonia. In the ER, patient received 2.6 L of IV fluids with 2 bags of albumin, Tylenol, ceftriaxone, azithromycin, magnesium, and is also on Levophed. He was eventually transferred out of the ICU and is presently on the medical floor. His blood cultures are now positive for gram-positive cocci. Renal consult has been requested for help with management of ESRD. PAST MEDICAL HISTORY: History of ESRD, on hemodialysis; history of COPD; thyroid disease; GERD; hypercholesterolemia; peripheral vascular disease; prostate CA; hypertension; history of coronary artery disease, status post GA; and hypothyroidism. PAST SURGICAL HISTORY: AV fistula placement, cataract surgery, history of incision and drainage, aortic valve replacement, and CABG. PERSONAL AND SOCIAL HISTORY: Patient lives with his family. Does not smoke. Does not use drugs or use alcohol. ALLERGIES: PATIENT HAS NO KNOWN DRUG ALLERGIES. MEDICATIONS: At home were reviewed in detail. PHYSICAL EXAMINATION: GENERAL: Patient was resting in the bed. Awake, alert, oriented x3. VITAL SIGNS: Blood pressure was 142/66, pulse 69, afebrile. HEENT/NECK: Shows pupils are equal, round, and reactive bilaterally to light. No jugular venous distention is noted. Neck was supple. No thyromegaly noted. Mucosa was dry. There was no scleral icterus or conjunctival congestion. CARDIOVASCULAR SYSTEM: S1, S2 without rub or murmur. RESPIRATORY SYSTEM: Mildly decreased in the bases. ABDOMEN: Soft, obese, nontender. No guarding noted. Bowel sounds normal. EXTREMITIES: Showed no edema. Left upper extremity AV fistula had good bruit and thrill was noted. There was no obvious tenderness, redness, drainage, or abscess in the fistula. There was some hyperpigmentation. This could be due to multiple cannulations. LABORATORY DATA: Labs done today. WBC is 6.3, hemoglobin 7.4, hematocrit 23.7, platelets 84. Sodium 142, potassium 4.5, chloride 106, CO2 of 25, BUN 54, creatinine 6.16. IMPRESSION: 1. 84-year-old male with end-stage renal disease, on hemodialysis. 2. Sepsis with septic shock due to gram-positive cocci in the blood. 3. Hypotension due to above. 4. Elevated troponin. 5. Acute on chronic anemia. RECOMMENDATIONS: At this juncture, I have arranged hemodialysis for the patient in the inpatient dialysis unit. We will try to remove fluid as tolerated and use potassium per protocol. We will give IV fluids if there is hypotension. In the meantime, I agree with continuation of vancomycin. An echocardiogram has been ordered and results are pending. We will follow repeat blood cultures on this patient. As mentioned before, there is no obvious clear reason for infection and the AV fistula site seems to be acceptable for now, though it does not rule out fistula-related infections. Patient is presently on vancomycin and I recommend checking vancomycin level. In regard to anemia, he is going to get 1 units of packed red blood cells today during hemodialysis. Thank you for allowing me to participate in medical management of the patient. MD EDWIN Coe/BIJAL / [phone]
--- NOTE | 2024-06-04 13:03 | P.PNNP_ITS ---
Subjective Subjective Date of Service: 06/04/24 Interval history: Seen and examined, events noted Physical Exam 2 Vital Signs: Vital Signs: Last Vital Signs Temp 97.0 F 06/04/24 07:44 Pulse 67 06/04/24 07:44 Resp 18 06/04/24 07:44 BP 157/73 H 06/04/24 07:44 Pulse Ox 95 06/04/24 07:44 O2 Del Method Room Air 06/04/24 07:44 O2 Flow Rate 95 06/03/24 07:46 BMI result Body Mass Index 25.4 Const: General: cooperative, comfortable, no acute distress, alert and awake Nutritional Appearance: average body habitus Orientation/consciousness: p atient oriented x3 Resp: Effort & Inspection: normal respiratory effort, able to speak in complete sentences, no respiratory distress and no use of accessory muscles A uscultation: clear to auscultation bilaterally Cardio: Rate: regular rate GI: Inspection: No distended Palpation (GI): Soft to palpation and nontender Neuro: General: patient oriented x3, moves all extremities and CN's II-XI intact bilaterally Extrem: General: Yes no pedal edema Objective Data Labs 06/02/24 07:47 06/04/24 05:45 Labs: Laboratory Results - last 24 hr 06/03/24 06/04/24 16:19 05:45 Hold Purple Top SEE NOTE Sodium 140 Potassium 4.2 Chloride 103 Carbon Dioxide 24 Anion Gap 17 BUN 57 H Creatinine 8.07 H* Estim Creat Clear Calc 7.3 Estimated GFR 6 POC Glucose 109 Random Glucose 88 Calcium 8.8 Microbiology Microbiology Results: Microbiology 06/01/24 07:46 Blood - Venous Blood Culture - Preliminary No growth after 48 hours. 06/01/24 07:46 Blood - Venous Blood Culture - Preliminary No growth after 48 hours. 05/30/24 20:25 Blood - Venous Blood Culture - Final Staphylococcus aureus 05/30/24 20:25 Blood - Venous Blood Culture - Final Staphylococcus aureus Procedures Date of Service Date of Service: 06/04/24 Assessment & Plan Assessment and plan (1) ESRD (end stage renal disease): Status: Acute (2) Gram-positive bacteremia: Status: Acute (3) Sepsis: Status: Acute Plan ESRD on HD vai AVF LUE with open wound on AVF site MSSA bacteemia: prsumably from skin source from AVF but defer to ID re: furhte eval as may need ECH ot tr/o endocarditis AVF: vasc to see re: ques safe to use and whether AVF need to be furhter eval for deep seated infection Nephrogenic Anemia REC: cont HD mwf; ABX as per ID--Anceph can be given after HD 2/2/3 dosing; vasc to see P as he may need Pcath and rest the AVF D/W Hosp Team: Bev Ashby Time Spent With Patient Time: Total time managing care of this patient today ____ minutes. Progress Note: Quality Stroke Does the patient have a stroke diagnosis?: No
--- NOTE | 2024-06-04 13:49 | MHC.SLORD ---
Speech Language Pathology Order Status: Patient away at dialysis this morning. RN reports patient tolerated breakfast without any difficulties this morning. He is on a regular texture diet and thin liquids with direct supervision and aspiration precautions. COLD HEADER OPERATOR to f/u 1-2x.
[2024-06-04 16:00] VITALS: BP 151/66; PULSE 74; RESP 16; TEMP 36.6; O2SAT 97
[2024-06-04] MEDS: ceFAZolin Sodium/Dextrose,Iso 2 GM/50 ML PIGGYBACK IV (17:41)
[2024-06-04 20:00] VITALS: BP 138/62; PULSE 62; RESP 20; TEMP 36.7; O2SAT 95
[2024-06-04] MEDS: Enoxaparin Sodium 30 MG/0.3 ML SYRINGE SUBCUT (23:14)
[2024-06-05] VITALS: BP 146/67; PULSE 62; RESP 20; TEMP 36.2; O2SAT 96
[2024-06-05 03:43] VITALS: BP 130/61; PULSE 64; RESP 20; TEMP 36.3; O2SAT 97
[2024-06-05 05:41] VITALS: BMI 25.3
[2024-06-05] MEDS: Omeprazole 40 MG CAPSULE.DR PO (05:48)
[2024-06-05] MEDS: Levothyroxine Sodium 50 MCG TABLET PO (05:48)
[2024-06-05 06:59] VITALS: BP 133/60; PULSE 75; RESP 17; TEMP 36.2; O2SAT 95
[2024-06-05 07:20] LABS: Anion Gap 18 (12-20); Blood Urea Nitrogen 37 mg/dL (9-16); Carbon Dioxide 21 mmol/L (22-29); Chloride 102 mmol/L (96-108); Creatinine Clr Calc Pharmacy 9.1; Estimated Glomerular Filt Rate 8; Glucose Random 92 mg/dL (60-115); Sodium 137 mmol/L (135-145)
--- NOTE | 2024-06-05 07:25 | HO.PM.IMPN ---
Subjective Subjective Date of Service: 06/05/24 Interval History: Seen in follow up for MSSA bactermia, AV fistula wound Interval history: Complaining of chronic pain R should and L hip pain. No recent injury. Vitals stable Review of Systems Review of Systems: Yes all other systems are reviewed and are negative Physical Exam Vital Signs: Vital Signs: Last Vital Signs Temp 97.1 F 06/05/24 06:59 Pulse 75 06/05/24 06:59 Resp 17 06/05/24 06:59 BP 133/60 06/05/24 06:59 Pulse Ox 95 06/05/24 06:59 O2 Del Method Room Air 06/05/24 06:59 O2 Flow Rate 95 06/03/24 07:46 BMI result Body Mass Index 25.3 Constitutional - Awake and Alert, No apparent distress Eyes - PERRLA, EOMI Cardiovascular - S1S2, RRR, No edema Respiratory - Normal lung expansion, Normal respiratory effort, No respiratory distress, CTA bilaterally Gastrointestinal - NT / ND; +BS; No rebound or guarding Extremities - no calf tenderness bilaterally, no swelling Musculoskeletal - Normal inspection, normal ROM. R shoulder ttp over AC joint and anterior shoulder Skin - Warm/Dry. Superficial non pressure ulceration overlying AV fistula LUE without purulent drainage or surrounding erythema Neurological - Alert & oriented x3, 5/5 strength BUE Psychological - Appropriate affect Objective Data Active Medications Acetaminophen (Acetaminophen 325 Mg Tablet) 650 mg PO Q4H PRN PRN Reason: Pain, Mild (Pain Scale 1-3) Last Admin: 06/01/24 11:48 Dose: 650 mg Documented By: EDWINA Allopurinol (Allopurinol 100 Mg Tablet) 100 mg PO DAILY [facility] Last Admin: 06/04/24 07:46 Dose: 100 mg Documented By: KALINA Aspirin (Aspirin Enteric Coated 81 Mg Tablet.) 81 mg PO DAILY [facility] Last Admin: 06/04/24 07:46 Dose: 81 mg Documented By: KALINA Cyanocobalamin (Cyanocobalamin (Vitamin B-12) 1,000 Mcg Tablet) 1,000 mcg PO DAILY [facility] Last Admin: 06/04/24 07:46 Dose: 1,000 mcg Documented By: KALINA Enoxaparin Sodium (Enoxaparin Sodium 30 Mg/0.3 Ml Syringe) 30 mg SUBCUT Q24H [facility] Last Admin: 06/04/24 23:14 Dose: 30 mg Documented By: JONI Folic Acid (Folic Acid 1 Mg Tablet) 1 mg PO DAILY [facility] Last Admin: 06/04/24 07:46 Dose: 1 mg Documented By: KALINA Cefazolin Sodium/Dextrose (Ancef) 2 gm in 50 mls @ 100 mls/hr IV MoWeFr@1800 [facility] Last Infusion: 06/04/24 18:19 Dose: Infused Documented By: KALINA Levothyroxine Sodium (Levothyroxine Sodium 50 Mcg Tablet) 50 mcg PO DAILY@0600 [facility] Last Admin: 06/05/24 05:48 Dose: 50 mcg Documented By: JONI Omeprazole (Omeprazole 40 Mg Olivier.) 40 mg PO DAILY@0630 [facility] Last Admin: 06/05/24 05:48 Dose: 40 mg Documented By: JONI Pharmacy Consult (Consult Rx Anticoag Dosing) 1 each MISCELLANE DAILY PRN; Protocol PRN Reason: Consult order Vitamin D (Cholecalciferol (Vitamin D3) 25 Mcg Tablet) 25 mcg PO DAILY [facility] Last Admin: 06/04/24 07:46 Dose: 25 mcg Documented By: KALINA Labs 06/02/24 07:47 06/05/24 06:23 Labs: Laboratory Results - last 24 hr 06/05/24 06:23 Hold Purple Top SEE NOTE Anion Gap 18 Estim Creat Clear Calc 9.1 Estimated GFR 8 Random Glucose 92 Calcium 9.0 Assessment and Plan (1) MSSA bacteremia: Status: Acute (2) ESRD (end stage renal disease): Status: Acute Plan This is an 84-year-old English-speaking male with history of end-stage renal disease on hemodialysis, COPD, GERD, hyperlipidemia, PVD, hypothyroidism who presented to the emergency department with weakness and multiple episodes of vomiting found to have hypotension. Chest x-ray showed possible left lower lobe pneumonia. He was admitted to the ICU for vasopressor support. Blood cultures grew GPC. He was downgraded from the medical floor on May 31. MSSA bacteremia per ID less likely due to pneumonia has AVF with overlying shallow ulceration but no erythema, tenderness, drainage. Vascular surgery consult placed to evaluate wound over AV fistula, ?need for permacath Initially treated with IV vancomycin, changed to cefazolin 2gm WMF after HD echo with no reported vegetations abdominal CT with no source of infection plan for 4 weeks of Kefzol 2 g post hemodialysis as long as repeat blood cultures remained negative at 72 hours. If turn positive we will need to address fistula access. repeat blood cultures negative Nonpressure ulcer AV fistula no evidence of acute infection on exam but ?cause of above bacteremia Per vascular surgery, concern that ulceration may have weakened graft. Plan to take to OR for possible revision. NPO after midnight 0001 septic shock due to bacteremia and possible pneumonia- downgraded from icu 05/31 cxr showing possible pneumonia initially treated with IV vanco and zosyn - zosyn stopped in ICU. transitioning to cefazolin as above cultures growing MSSA due to history of dysphagia seen by speech- no signs of aspiration, continue regular diet Chronic R shoulder pain lidocaine patch, tylenol Elevated troponin Likely type 2 due to demand from hypotension No chest pain ESRD on HD MWF schedule nephrology following Acute on chronic anemia, likely of chronic disease No evidence of acute blood loss s/p 1 unit RBCs 06/01 with improvement in H/H Thrombocytopenia Chronic Follow CBC Hypothyroidism Continue Synthroid Mild transaminitis Likely due to hypotension Trend LFTs GERD Continue PPI DVT prophylaxis Lovenox Patient will need ongoing stay in the hospital for management of bacteremia requiring IV antibiotics, awaiting expert consultation. PT recommending STR patient initially refusing. Will readdress with patient and son, Gian Kelley Stroke Does the patient have a stroke diagnosis?: No VTE Prior VTE?: No VTE Risk Level:: Medical - moderate - high VTE Device Contraindication: N/A - Device Ordered VTE Drug Contraindication: N/A - Med Ordered
[2024-06-05] MEDS: Aspirin Enteric Coated 81 MG TABLET.DR PO (08:48)
[2024-06-05] MEDS: allopurinoL 100 MG TABLET PO (08:48)
[2024-06-05] MEDS: Cholecalciferol (Vitamin D3) 25 MCG TABLET PO (08:48)
[2024-06-05] MEDS: Cyanocobalamin (Vitamin B-12) 1,000 MCG TABLET 1000 MCG PO (08:48)
[2024-06-05] MEDS: Folic Acid 1 MG TABLET PO (08:48)
[2024-06-05] MEDS: Acetaminophen 325 MG TABLET 650 MG PO (08:56)
--- NOTE | 2024-06-05 10:05 | P.CONGS_ITS ---
History of Present Illness Consult details Consult date: 06/05/24 Reason for consult: other (esrd) Narrative: Very complex 84-year-old gentleman presents for evaluation regarding fistula. It appears that this is actually an AV graft that was placed according to the patient nearly 3 years ago. He has been using it fairly regularly. He has developed this blister over this site. He was actually admitted for MSSA bacteremia. And it appears that this may be possible to seat this graft. He now presents to us for vascular evaluation. Of note he is on a Tuesday dialysis regimen. Dialysis began on 01/15/2021 and initially was on a PermCath. Presumably graft was placed later. Review of Systems 2 Review of Systems: Yes all other systems are reviewed and are negative Constitutional: Constitutional: Reports no additional constitutional complaints ENT: Reports Normal hearing present Cardiovascular: Cardiovascular: Denies chest pain, Denies chest pain at rest, Denies chest pain with activity and Denies pedal edema Respiratory: Respiratory: Denies cough Gastrointestinal: Gastrointestinal: Denies abdominal pain Musculoskeletal: Musculoskeletal: Denies abnormal gait, Denies muscle cramps and Denies radiating pain into limb Integumentary/Breasts: Skin/Breast: Denies skin ulcer and Denies wounds Neurologic: Reports Normal hearing present and Denies abnormal gait Psychiatric: Psychiatric: Reports no additional psychiatric complaints PMFSH Past Medical History Medical History (Updated 06/02/24 @ 14:33 by Kate Jha MD) MSSA bacteremia ESRD (end stage renal disease) Dialysis patient COVID-19 vaccine administered Renal failure COPD (chronic obstructive pulmonary disease) Thyroid disease GERD (gastroesophageal reflux disease) Elevated cholesterol PVD (peripheral vascular disease) Prostate CA HTN (hypertension) Heart attack Family History Family history: reviewed and not pertinent Surgical History Surgical History Hx of cataract surgery Hx of cystoscopy History of incision and drainage H/O colonoscopy Hx of aortic valve replacement Hx of CABG Social History Social History Household Members: Family Housing: House Are you a primary transitional care manager to a significant other at home: No Do you presently have visiting nurse or other home services: No Alcohol intake: never Patient Tobacco Use Status: Never used Tobacco Smoked in Last 30 Days: No Use of substances other than those prescribed or required for medical reasons: No Currently Displaying Signs/Symptoms of Drug Intoxication Withdrawal: No Have you been hit, kicked, punched, or otherwise hurt by someone within the past year? If so, by whom?: No Do you feel safe in your current relationship?: No Current Relationship Is there a partner from a previous relationship who is making you feel unsafe now?: No Are you made to feel afraid or neglected: No Advance Directives: No Advance Directives Information Provided: No Do you have a plan to hurt others: No Plan Recently lost weight without trying: No Eating poorly because of decreased appetite: No Nutrition Risks: No Nutritional Risk Poor oral hygiene: No service: No Current occupational status: disabled [employer]s Allergies Allergy/AdvReac Type Severity Reaction Status Date / Time No Known Allergies Allergy Mild NONE Verified 05/30/24 20:06 Active Medications: Current Medications Acetaminophen (Acetaminophen 325 Mg Tablet) 650 mg PO Q4H PRN PRN Reason: Pain, Mild (Pain Scale 1-3) Last Admin: 06/05/24 08:56 Dose: 650 mg Allopurinol (Allopurinol 100 Mg Tablet) 100 mg PO DAILY [facility] Last Admin: 06/05/24 08:48 Dose: 100 mg Aspirin (Aspirin Enteric Coated 81 Mg Tablet.Dr) 81 mg PO DAILY [facility] Last Admin: 06/05/24 08:48 Dose: 81 mg Cyanocobalamin (Cyanocobalamin (Vitamin B-12) 1,000 Mcg Tablet) 1,000 mcg PO DAILY [facility] Last Admin: 06/05/24 08:48 Dose: 1,000 mcg Enoxaparin Sodium (Enoxaparin Sodium 30 Mg/0.3 Ml Syringe) 30 mg SUBCUT Q24H [facility] Last Admin: 06/04/24 23:14 Dose: 30 mg Folic Acid (Folic Acid 1 Mg Tablet) 1 mg PO DAILY [facility] Last Admin: 06/05/24 08:48 Dose: 1 mg Cefazolin Sodium/Dextrose (Ancef) 2 gm in 50 mls @ 100 mls/hr IV MoWeFr@1800 [facility] Last Infusion: 06/04/24 18:19 Dose: Infused Levothyroxine Sodium (Levothyroxine Sodium 50 Mcg Tablet) 50 mcg PO DAILY@0600 [facility] Last Admin: 06/05/24 05:48 Dose: 50 mcg Omeprazole (Omeprazole 40 Mg Capsule.) 40 mg PO DAILY@0630 [facility] Last Admin: 06/05/24 05:48 Dose: 40 mg Pharmacy Consult (Consult Rx Anticoag Dosing) 1 each MISCELLANE DAILY PRN; Protocol PRN Reason: Consult order Vitamin D (Cholecalciferol (Vitamin D3) 25 Mcg Tablet) 25 mcg PO DAILY [facility] Last Admin: 06/05/24 08:48 Dose: 25 mcg Home Medications ?Medication ?Instructions ?Recorded ?Confirmed ?Last Taken ?Type allopurinol 100 mg tablet 100 mg PO DAILY 12/30/20 05/31/24 06/28/23 History aspirin 81 mg tablet,delayed 81 mg PO DAILY 12/30/20 05/31/24 06/28/23 History release atorvastatin 80 mg tablet 80 mg PO BEDTIME 12/30/20 05/31/24 06/28/23 History cholecalciferol (vitamin D3) 25 25 mcg PO DAILY 12/30/20 05/31/24 06/28/23 History mcg (1,000 unit) capsule (Vitamin D3) levothyroxine 50 mcg tablet 50 mcg PO DAILY@0600 12/30/20 05/31/24 06/28/23 History omeprazole 20 mg capsule,delayed 20 mg PO DAILY@0630 12/30/20 06/01/24 06/28/23 History release cyanocobalamin (vitamin B-12) 1,000 mcg PO DAILY 06/10/23 05/31/24 06/28/23 History 1,000 mcg tablet cyclosporine 0.05 % eye drops 1 drp ophthalmic (eye) BID 06/10/23 05/31/24 06/28/23 History (Restasis MultiDose) Physical Exam 2 Vital Signs: Vital Signs: Last Vital Signs Temp 97.1 F 06/05/24 06:59 Pulse 75 06/05/24 06:59 Resp 17 06/05/24 06:59 BP 133/60 06/05/24 06:59 Pulse Ox 95 06/05/24 06:59 O2 Del Method Room Air 06/05/24 06:59 O2 Flow Rate 95 06/03/24 07:46 BMI result Body Mass Index 25.3 Const: General: cooperative, healthy appearing and comfortable O rientation/consciousness: oriented to person, oriented to place and oriented to time HEENT: Head: Yes normal to inspection Neck: Neck: Yes normal visual inspection Carotids: no bruits Chest: Chest palpation & inspection: normal inspection of the chest Resp: Effort & Inspection: normal respiratory effort and able to speak in complete sentences Auscultation: clear to auscultation bilaterally, no crackles, no rales, no rhonchi and no wheezes Cardio: Rate: regular rate Rhythm: regular rhythm Heart sounds: S1 normal heart sound present and S2 normal heart sound present Bruits: no carotid bruits Peripheral pulses: Peripheral pulses 2+ throughout GI: Inspection: Yes normal to inspection Skin: Other: Left arm forearm loop AV graft. Good pulse throughout the graft. There is a proximally a 0.5 cm ulcerated area on this graft. Wounds: no wounds Hair: normal Neuro: General: oriented to person, oriented to place and oriented to time Cranial nerves: Yes CN's II-XII intact bilaterally and Yes Normal hearing present Cognition (Neuro): normal cognition Motor exam (neuro): 5/5 motor strength present throughout Extrem: Other: venous exam: No significant superficial varicosities or spider telangiectasias, minimal edema General: No clubbing, No cyanosis and No edema Psych: Appearance: grossly normal Mental Status: mental status grossly normal Speech and movement: Normal speech and movement present Results Labs 06/02/24 07:47 06/05/24 06:23 Labs: Abnormal lab results 06/05/24 Range/Units 06:23 Carbon Dioxide 21 L (22-29) mmol/L BUN 37 H (9-16) mg/dL Creatinine 6.48 H* (0.5-1.4) mg/dL BMP 06/05/24 06:23 Sodium 137 Potassium 4.0 Chloride 102 Carbon Dioxide 21 L BUN 37 H Creatinine 6.48 H* Calcium 9.0 All other labs normal. Assessment and Plan (1) CKD (chronic kidney disease) stage 5, GFR less than 15 ml/min: Status: Acute Plan At the current time patient does appear to have a stable left upper extremity fistula. The concern is this ulcerated area and it feels that the graft has been weakened in this area. This will require possible revision. He is scheduled for later this week. At the current time would continue with antibiotics and dialysis. Thank you for allowing us to assist in his care. If there are any questions or concerns please do not hesitate to contact us Procedures Date of Service Date of Service: 06/05/24
[2024-06-05 11:20] VITALS: BP 146/76; PULSE 78; RESP 18; TEMP 36.5; O2SAT 94
--- NOTE | 2024-06-05 11:25 | MHC.SL.SWA ---
Speech Pathologist Impression: Risk of Aspiration Risk of Aspiration Due to: History of Pneumonia Dysphasia Diet Status: No Change Liquid Consistency and Strategies for Safe Swallow: Liquid Intake Recommendation: Thin Liquid Intake Strategies: Small Sips Double Swallow Solid Food Consistency: Dietary Recommendations: Regular Additional Modifications to Solid Foods: Dry swallow/liquid wash between bites, sit upright for meals and for at least 30 minutes afterwards Oral Medication Intake: Whole with Liquid Please contact the pharmacy regarding appropriate crushable or liquid drug formulations that are available whenever modified delivery is recommended. Compensatory Strategies and Precautions to be Taken for Safe Swallow: Sitting Upright (90 deg) Double Swallow No Straw Small Bites and Sips Alternate Liquids/Solids Rate of Ingestion Change Supervision While Eating and Drinking for Safe Swallow: Total Supervision (1:1) Swallowing Recommended Treatments: Compens. Strategy Educat. Recommendation for Speech: D/C Plumbing Technician Clinican/Clinical Fellow: No Supervisory Statement: I have reviewed and agree with the student/clinical fellow's documentation: N/A Speech Language Pathologist: Dora Redding M.A., CCC-RETAIL OPERATIONS SPECIALIST
[2024-06-05 15:13] VITALS: BP 138/65; PULSE 75; RESP 18; TEMP 36.8; O2SAT 95
[2024-06-05] MEDS: Lidocaine 4 % Patch ADH..PATCH 2 PATCH TRANSDERMA (17:08)
[2024-06-05 20:00] VITALS: BP 157/66; PULSE 135; RESP 16; TEMP 36.5; O2SAT 100
[2024-06-06] VITALS (7 sets, daily range): BP systolic 118–132; BP diastolic 58–78; PULSE 61–75; RESP 17–20; TEMP 36.3–37.2; O2SAT 93–97; BMI 25.4
[2024-06-06] MEDS: Omeprazole 40 MG CAPSULE.DR PO (06:39)
[2024-06-06] MEDS: Levothyroxine Sodium 50 MCG TABLET PO (06:39)
--- NOTE | 2024-06-06 07:38 | HO.PM.IMPN ---
Subjective Subjective Date of Service: 06/06/24 Interval History: Seen in follow up for MSSA bactermia, AV fistula wound Interval history: No overnight events. No new complaints. Vitals stable. HD this morning Review of Systems Review of Systems: Yes all other systems are reviewed and are negative Physical Exam Vital Signs: Vital Signs: Last Vital Signs Temp 97.3 F 06/06/24 06:57 Pulse 71 06/06/24 06:57 Resp 17 06/06/24 06:57 BP 126/60 06/06/24 06:57 Pulse Ox 95 06/06/24 06:57 O2 Del Method Room Air 06/06/24 06:57 O2 Flow Rate 95 06/03/24 07:46 BMI result Body Mass Index 25.4 Constitutional - Awake and Alert, No apparent distress Eyes - PERRLA, EOMI Cardiovascular - S1S2, RRR, No edema Respiratory - Normal lung expansion, Normal respiratory effort, No respiratory distress, CTA bilaterally Gastrointestinal - NT / ND; +BS; No rebound or guarding Extremities - no calf tenderness bilaterally, no swelling Skin - Warm/Dry. Superficial non pressure ulceration overlying AV fistula LUE without purulent drainage or surrounding erythema Neurological - Alert & oriented x3, 5/5 strength BUE Psychological - Appropriate affect Objective Data Active Medications Acetaminophen (Acetaminophen 325 Mg Tablet) 650 mg PO Q4H PRN PRN Reason: Pain, Mild (Pain Scale 1-3) Last Admin: 06/05/24 08:56 Dose: 650 mg Documented By: EDWINA Allopurinol (Allopurinol 100 Mg Tablet) 100 mg PO DAILY [facility] Last Admin: 06/05/24 08:48 Dose: 100 mg Documented By: EDWINA Aspirin (Aspirin Enteric Coated 81 Mg Tablet.) 81 mg PO DAILY [facility] Last Admin: 06/05/24 08:48 Dose: 81 mg Documented By: EDWINA Cyanocobalamin (Cyanocobalamin (Vitamin B-12) 1,000 Mcg Tablet) 1,000 mcg PO DAILY [facility] Last Admin: 06/05/24 08:48 Dose: 1,000 mcg Documented By: EDWINA Enoxaparin Sodium (Enoxaparin Sodium 30 Mg/0.3 Ml Syringe) 30 mg SUBCUT Q24H [facility] Last Admin: 06/06/24 00:00 Dose: 30 mg Documented By: MELIDA Folic Acid (Folic Acid 1 Mg Tablet) 1 mg PO DAILY [facility] Last Admin: 06/05/24 08:48 Dose: 1 mg Documented By: EDWINA Cefazolin Sodium/Dextrose (Ancef) 2 gm in 50 mls @ 100 mls/hr IV MoWeFr@1800 [facility] Last Infusion: 06/04/24 18:19 Dose: Infused Documented By: KALINA Levothyroxine Sodium (Levothyroxine Sodium 50 Mcg Tablet) 50 mcg PO DAILY@0600 [facility] Last Admin: 06/06/24 06:39 Dose: 50 mcg Documented By: MELIDA Lidocaine (Lidocaine 4 % Patch Adh..Patch) 2 patch TRANSDERMA DAILY [facility]; Protocol Last Admin: 06/05/24 17:08 Dose: 2 patch Documented By: MARCELO Omeprazole (Omeprazole 40 Mg Capsule.Dr) 40 mg PO DAILY@0630 [facility] Last Admin: 06/06/24 06:39 Dose: 40 mg Documented By: MELIDA Pharmacy Consult (Consult Rx Anticoag Dosing) 1 each MISCELLANE DAILY PRN; Protocol PRN Reason: Consult order Vitamin D (Cholecalciferol (Vitamin D3) 25 Mcg Tablet) 25 mcg PO DAILY [facility] Last Admin: 06/05/24 08:48 Dose: 25 mcg Documented By: EDWINA Labs 06/02/24 07:47 06/06/24 08:04 Assessment and Plan (1) MSSA bacteremia: Status: Acute (2) ESRD (end stage renal disease): Status: Acute Plan This is an 84-year-old Turkish-speaking male with history of end-stage renal disease on hemodialysis, COPD, GERD, hyperlipidemia, PVD, hypothyroidism who presented to the emergency department with weakness and multiple episodes of vomiting found to have hypotension. Chest x-ray showed possible left lower lobe pneumonia. He was admitted to the ICU for vasopressor support. Blood cultures grew GPC. He was downgraded from the medical floor on May 31. MSSA bacteremia per ID less likely due to pneumonia, likely r/t AV fistula ulceration Initially treated with IV vancomycin, changed to cefazolin 2gm WMF after HD echo with no reported vegetations abdominal CT with no source of infection plan for 4 weeks of Kefzol 2 g post hemodialysis as long as repeat blood cultures remained negative at 72 hours. If turn positive we will need to address fistula access. repeat blood cultures negative Nonpressure ulcer AV fistula no evidence of acute active infection on exam but ?cause of above bacteremia Per vascular surgery, concern that ulceration may have weakened graft. Plan to take to OR for possible revision. NPO after midnight 2023. IR consult for permacath placement thursday 06/07. Will also need to be npo after midtuesday septic shock due to bacteremia and possible pneumonia- downgraded from icu 05/31 cxr showing possible pneumonia, more likely due to above initially treated with IV vanco and zosyn - zosyn stopped in ICU. transitioning to cefazolin as above cultures growing MSSA due to history of dysphagia seen by speech- no signs of aspiration, continue regular diet Chronic R shoulder pain lidocaine patch, tylenol Elevated troponin Likely type 2 due to demand from hypotension No chest pain ESRD on HD MWF schedule nephrology following Acute on chronic anemia, likely of chronic disease No evidence of acute blood loss s/p 1 unit RBCs 06/01 with improvement in H/H Thrombocytopenia Chronic Follow CBC Hypothyroidism Continue Synthroid Mild transaminitis Likely due to hypotension Trend LFTs GERD Continue PPI DVT prophylaxis Lovenox Patient will need ongoing stay in the hospital for management of bacteremia requiring IV antibiotics, need for graft revision and permacath placement for HD. PT recommending STR patient initially refusing. Will readdress with patient and son, Gian Kelley Stroke Does the patient have a stroke diagnosis?: No VTE Prior VTE?: No VTE Risk Level:: Medical - moderate - high VTE Device Contraindication: N/A - Device Ordered VTE Drug Contraindication: N/A - Med Ordered
[2024-06-06 08:56] LABS: Anion Gap 17 (12-20); Blood Urea Nitrogen 61 mg/dL (9-16); Carbon Dioxide 22 mmol/L (22-29); Chloride 101 mmol/L (96-108); Creatinine Clr Calc Pharmacy 6.9; Estimated Glomerular Filt Rate 6; Glucose Random 99 mg/dL (60-115); Potassium 4.4 mmol/L (3.3-5.1); Sodium 136 mmol/L (135-145)
--- NOTE | 2024-06-06 09:27 | P.PNNP_ITS ---
Subjective Subjective Date of Service: 06/06/24 Interval history: Seen and examined, events noted Dr Jose at bedside and we discussed case Physical Exam 2 Vital Signs: Vital Signs: Last Vital Signs Temp 97.3 F 06/06/24 06:57 Pulse 71 06/06/24 06:57 Resp 17 06/06/24 06:57 BP 126/60 06/06/24 06:57 Pulse Ox 95 06/06/24 06:57 O2 Del Method Room Air 06/06/24 06:57 O2 Flow Rate 95 06/03/24 07:46 BMI result Body Mass Index 25.4 Const: General: cooperative, comfortable, no acute distress, alert and awake Nutritional Appearance: average body habitus Orientation/consciousness: p atient oriented x3 Resp: Effort & Inspection: normal respiratory effort, able to speak in complete sentences, no respiratory distress and no use of accessory muscles A uscultation: clear to auscultation bilaterally Cardio: Rate: regular rate GI: Inspection: No distended Palpation (GI): Soft to palpation and nontender Neuro: General: patient oriented x3, moves all extremities and CN's II-XI intact bilaterally Extrem: General: Yes no pedal edema Objective Data Labs 06/02/24 07:47 06/06/24 08:04 Labs: Laboratory Results - last 24 hr 06/06/24 08:04 Sodium 136 Potassium 4.4 Chloride 101 Carbon Dioxide 22 Anion Gap 17 BUN 61 H Creatinine 8.51 H* Estim Creat Clear Calc 6.9 Estimated GFR 6 Random Glucose 99 Calcium 9.0 Microbiology Microbiology Results: Microbiology 06/01/24 07:46 Blood - Venous Blood Culture - Preliminary No growth after 48 hours. 06/01/24 07:46 Blood - Venous Blood Culture - Preliminary No growth after 48 hours. 05/30/24 20:25 Blood - Venous Blood Culture - Final Staphylococcus aureus 05/30/24 20:25 Blood - Venous Blood Culture - Final Staphylococcus aureus Procedures Date of Service Date of Service: 06/06/24 Assessment & Plan Assessment and plan (1) MSSA bacteremia: Status: Acute (2) ESRD (end stage renal disease): Status: Acute Plan This is an 84-year-old Andorran-speaking male with history of end-stage renal disease on hemodialysis, COPD, GERD, hyperlipidemia, PVD, hypothyroidism who presented to the emergency department with weakness and multiple episodes of vomiting found to have hypotension. Chest x-ray showed possible left lower lobe pneumonia. He was admitted to the ICU for vasopressor support. Blood cultures grew MSSA MSSA bacteremia: c/w infection of AVG on Abx as per ID AVG with overlying ulcer infection: very concerning fo rdeep seated inf and rsik of invoving AVG is very very high ( IMO) Nephrogenic Anemia REC: HD today avoidng ulcer ( Ok'd by Dr Jose); remove AVG by Dr Jose 06/07 and then new Pcath on 06/08 D/W Dr Jose in detail and also expalined to Patient Time Spent With Patient Time: Total time managing care of this patient today ____ minutes. Progress Note: Quality Stroke Does the patient have a stroke diagnosis?: No
--- NOTE | 2024-06-06 09:45 | HO.VASCPN ---
Subjective Subjective Date of Service: 06/06/24 Patient reports: no new complaints and feels better Interval history: Very pleasant 84-year-old gentleman presents for follow-up regarding his left upper extremity fistula. It has been present for at least a year 2. It actually appears that it is a left upper extremity AV graft. There is an ulcerated area on it and he presented to the hospital bacteremic. He now presents to us for vascular follow-up. Of note he was seen in conjunction with nephrology. Physical Exam Vital Signs: Vital Signs: Last Vital Signs Temp 97.3 F 06/06/24 06:57 Pulse 71 06/06/24 06:57 Resp 17 06/06/24 06:57 BP 126/60 06/06/24 06:57 Pulse Ox 95 06/06/24 06:57 O2 Del Method Room Air 06/06/24 06:57 O2 Flow Rate 95 06/03/24 07:46 BMI result Body Mass Index 25.4 Const: General: cooperative, healthy appearing and comfortable Orientation/consciousness: oriented to person, oriented to place and oriented to time HEENT: Head: Yes normal to inspection Neck: Neck: Yes normal visual inspection Carotids: no bruits Chest: Chest palpation & inspection: normal inspection of the chest Resp: Effort & Inspection: normal respiratory effort and able to speak in complete sentences Auscultation: clear to auscultation bilaterally, no crackles, no rales, no rhonchi and no wheezes Cardio: Rate: regular rate Rhythm: regular rhythm Heart sounds: S1 normal heart sound present and S2 normal heart sound present Bruits: no carotid bruits Peripheral pulses: Peripheral pulses 2+ throughout GI: Inspection: Yes normal to inspection Skin: Wounds: no wounds Hair: normal Neuro: General: oriented to person, oriented to place and oriented to time Cranial nerves: Yes CN's II-XII intact bilaterally and Yes Normal hearing present Cognition (Neuro): normal cognition Motor exam (neuro): 5/5 motor strength present throughout Extrem: Other: left upper extremity - left forearm loop graft with an ulcerated area overlying. General: No clubbing, No cyanosis and No edema Psych: Appearance: grossly normal Mental Status: mental status grossly normal Speech and movement: Normal speech and movement present Progress Note: A&P Assessment and plan (1) CKD (chronic kidney disease) stage 5, GFR less than 15 ml/min: Status: Acute Assessment and Plan: In short patient is dialysis dependent. His fistula appears to have ulcerated and may be a source sepsis. I did discuss a plan with Nephrology. He will get dialysis through the fistula today. We will plan for revision/excision tomorrow. Subsequent to that will get a PermCath the following day for dialysis access. The patient will require left upper extremity fistula revision with possible excision. Risks benefits complications were discussed in detail with the patient with nephrology present. Agreed and would like to move forward. Thank you for allowing us to assist in his care. Time Spent With Patient Time: Total time managing care of this patient today ____ minutes. Procedures Date of Service Date of Service: 06/06/24 Quality Stroke Does the patient have a stroke diagnosis?: No VTE Prior VTE?: No VTE Risk Level:: Medical - moderate - high VTE Device Contraindication: N/A - Device Ordered VTE Drug Contraindication: N/A - Med Ordered
[2024-06-06] MEDS: Acetaminophen 325 MG TABLET 650 MG PO (14:30)
[2024-06-06] MEDS: Aspirin Enteric Coated 81 MG TABLET.DR PO (14:30)
[2024-06-06] MEDS: allopurinoL 100 MG TABLET PO (14:31)
[2024-06-06] MEDS: Cyanocobalamin (Vitamin B-12) 1,000 MCG TABLET 1000 MCG PO (14:31)
[2024-06-06] MEDS: Cholecalciferol (Vitamin D3) 25 MCG TABLET PO (14:31)
[2024-06-06] MEDS: Folic Acid 1 MG TABLET PO (14:32)
--- NOTE | 2024-06-06 14:48 | MHC.CM.PN ---
EMR reviewed and per MD rounds, pt is not medically cleared for discharge today, is pending graft removal tomorrow and perma cath placement on Tuesday. This CM met with pt to discuss discharge plans, pt declined a per diem interpreter and had a family member on the phone who was able to translate. Per the pts family member, they have discussed it and the pt does not want to go to rehab, he wants to return home with family support and VNA services. Referral placed to [facility] per pts request.
[2024-06-06] MEDS: ceFAZolin Sodium/Dextrose,Iso 2 GM/50 ML PIGGYBACK IV (19:04)
[2024-06-06] MEDS: Enoxaparin Sodium 30 MG/0.3 ML SYRINGE SUBCUT ×2 (22:57)
[2024-06-07] VITALS (11 sets, daily range): BP systolic 112–145; BP diastolic 50–73; PULSE 66–88; RESP 12–20; TEMP 36.1–36.7; O2SAT 96–100; BMI 25.1
[2024-06-07] MEDS: Levothyroxine Sodium 50 MCG TABLET PO (06:46)
[2024-06-07] MEDS: Omeprazole 40 MG CAPSULE.DR PO (06:46)
[2024-06-07] MEDS: Lidocaine 4 % Patch ADH..PATCH 2 PATCH TRANSDERMA (08:00)
[2024-06-07] MEDS: Aspirin Enteric Coated 81 MG TABLET.DR PO (08:01)
[2024-06-07] MEDS: Folic Acid 1 MG TABLET PO (08:01)
[2024-06-07] MEDS: Cholecalciferol (Vitamin D3) 25 MCG TABLET PO (08:02)
[2024-06-07] MEDS: Cyanocobalamin (Vitamin B-12) 1,000 MCG TABLET 1000 MCG PO (08:02)
[2024-06-07] MEDS: allopurinoL 100 MG TABLET PO (08:02)
[2024-06-07 09:11] LABS: Anion Gap 16 (12-20); Blood Urea Nitrogen 45 mg/dL (9-16); Calcium 9.1 mg/dL (8.4-10.2); Carbon Dioxide 21 mmol/L (22-29); Chloride 99 mmol/L (96-108); Creatinine Clr Calc Pharmacy 8.9; Estimated Glomerular Filt Rate 8; Glucose Random 93 mg/dL (60-115); Potassium 4.2 mmol/L (3.3-5.1); Sodium 132 mmol/L (135-145)
--- NOTE | 2024-06-07 09:30 | P.PNNP_ITS ---
Subjective Subjective Date of Service: 06/07/24 Interval history: Seen and examined, events noted Surg later tofday to remove AVG and placement of Pcath this OM vs tomorrow am Physical Exam 2 Vital Signs: Vital Signs: Last Vital Signs Temp 97.0 F 06/07/24 07:13 Pulse 72 06/07/24 07:13 Resp 18 06/07/24 07:13 BP 121/58 L 06/07/24 07:13 Pulse Ox 97 06/07/24 07:13 O2 Del Method Room Air 06/07/24 07:13 O2 Flow Rate 95 06/03/24 07:46 BMI result Body Mass Index 25.1 Const: General: cooperative, comfortable, no acute distress, alert and awake Nutritional Appearance: average body habitus Orientation/consciousness: p atient oriented x3 Resp: Effort & Inspection: normal respiratory effort, able to speak in complete sentences, no respiratory distress and no use of accessory muscles A uscultation: clear to auscultation bilaterally Cardio: Rate: regular rate GI: Inspection: No distended Palpation (GI): Soft to palpation and nontender Neuro: General: patient oriented x3, moves all extremities and CN's II-XI intact bilaterally Extrem: General: Yes no pedal edema Objective Data Labs 06/02/24 07:47 06/07/24 08:13 Labs: Laboratory Results - last 24 hr 06/07/24 08:13 Sodium 132 L Potassium 4.2 Chloride 99 Carbon Dioxide 21 L Anion Gap 16 BUN 45 H Creatinine 6.65 H* Estim Creat Clear Calc 8.9 Estimated GFR 8 Random Glucose 93 Calcium 9.1 Microbiology Microbiology Results: Microbiology 06/01/24 07:46 Blood - Venous Blood Culture - Final No growth after 5 days. 06/01/24 07:46 Blood - Venous Blood Culture - Final No growth after 5 days. 05/30/24 20:25 Blood - Venous Blood Culture - Final Staphylococcus aureus 05/30/24 20:25 Blood - Venous Blood Culture - Final Staphylococcus aureus Procedures Date of Service Date of Service: 06/07/24 Assessment & Plan Assessment and plan (1) MSSA bacteremia: Status: Acute (2) ESRD (end stage renal disease): Status: Acute Plan This is an 84-year-old Sudanese-speaking male with history of end-stage renal disease on hemodialysis, COPD, GERD, hyperlipidemia, PVD, hypothyroidism who presented to the emergency department with weakness and multiple episodes of vomiting found to have hypotension. Chest x-ray showed possible left lower lobe pneumonia. He was admitted to the ICU for vasopressor support. Blood cultures grew MSSA MSSA bacteremia: c/w infection of AVG on Abx as per ID AVG with overlying ulcer infection: very concerning fo deep seated inf and rsik of invoving AVG is very very high ( IMO) Nephrogenic Anemia REC: remove AVG by Dr Jose today 06/07 and then new Pcath on 06/07 or 06/08 by IR and HD 06/08 Time Spent With Patient Time: Total time managing care of this patient today ____ minutes. Progress Note: Quality Stroke Does the patient have a stroke diagnosis?: No
[2024-06-07] MEDS: Acetaminophen 325 MG TABLET 650 MG PO (10:37)
--- NOTE | 2024-06-07 10:40 | HO.WOUND ---
Wound Consult: Initial 84yr old?Male [place] [facility] [place] - See progress notes and H&P for detailed history.? Wound consult placed for Left arm wound.? Patient chart review reveals patient is set for OR today with Dr. Jose who is following wound and Fistula. Will defer topical recommendations to Dr. Jose. Currently no dressing in place so cleansed covered to protect. Left Arm site Etiology: ??Ulceration Measurements: 1cm x 1.2cm x 0.1cm Wound Bed: red dry tissue - with central yellow slough noted Drainage / Odor: None noted Edges: ? well defined Pam wound: ? No Induration, Fluctuance or Warmth noted Goals of Treatment: ? cover and moist wound healing. Recommendations: 1. Turn and Reposition every 2 hours and as needed for patient comfort.? Use pillows or wedges to support off loading positions. 2. Off Load all bony prominences with use of pillows and heel boots if needed.? Apply Preventative foams where needed. ? 3. Monitor for incontinence and moisture control, use barrier creams when needed for prevention and treatment. 4. Provide adequate and supplemental nutrition.? 5. Order or Continue low air loss mattress. 6. When applicable maintain blood glucose levels per Providers order. 7. Left arm wound - cleanse with NS, pat dry. Apply xeroform dressing cover with gauze. Change Daily. - Will defer topical recommendations to Dr. Jose for after surgery. Re-consult wound care Nurse for wound deterioration or wound changes.
--- NOTE | 2024-06-07 10:52 | P.PNIM_ITS ---
Subjective Subjective Date of Service: 06/07/24 Interval History: Seen in follow up for MSSA bactermia, AV fistula wound Interval history: No new complaint, awaiting perm cath today Review of Systems Review of Systems: Yes all other systems are reviewed and are negative Physical Exam 2 Vital Signs: Vital Signs: Last Vital Signs Temp 97.0 F 06/07/24 07:13 Pulse 72 06/07/24 07:13 Resp 18 06/07/24 07:13 BP 121/58 L 06/07/24 07:13 Pulse Ox 97 06/07/24 07:13 O2 Del Method Room Air 06/07/24 07:13 O2 Flow Rate 95 06/03/24 07:46 BMI result Body Mass Index 25.1 Constitutional - Awake and Alert, No apparent distress Eyes - PERRLA, EOMI Cardiovascular - S1S2, RRR, No edema Respiratory - Normal lung expansion, Normal respiratory effort, No respiratory distress, CTA bilaterally Gastrointestinal - NT / ND; +BS; No rebound or guarding Extremities - no calf tenderness bilaterally, no swelling Skin - Warm/Dry. Superficial non pressure ulceration overlying AV fistula LUE without purulent drainage or surrounding erythema Neurological - Alert & oriented x3, 5/5 strength BUE Psychological - Appropriate affect Objective Data Active Medications Acetaminophen (Acetaminophen 325 Mg Tablet) 650 mg PO Q4H PRN PRN Reason: Pain, Mild (Pain Scale 1-3) Last Admin: 06/07/24 10:37 Dose: 650 mg Documented By: GAGANDEEP Allopurinol (Allopurinol 100 Mg Tablet) 100 mg PO DAILY [facility] Last Admin: 06/07/24 08:02 Dose: 100 mg Documented By: GAGANDEEP Aspirin (Aspirin Enteric Coated 81 Mg Tablet.) 81 mg PO DAILY [facility] Last Admin: 06/07/24 08:01 Dose: 81 mg Documented By: GAGANDEEP Cyanocobalamin (Cyanocobalamin (Vitamin B-12) 1,000 Mcg Tablet) 1,000 mcg PO DAILY [facility] Last Admin: 06/07/24 08:02 Dose: 1,000 mcg Documented By: GAGANDEEP Enoxaparin Sodium (Enoxaparin Sodium 30 Mg/0.3 Ml Syringe) 30 mg SUBCUT Q24H [facility] Last Admin: 06/06/24 22:57 Dose: 30 mg Documented By: MELIDA Folic Acid (Folic Acid 1 Mg Tablet) 1 mg PO DAILY [facility] Last Admin: 06/07/24 08:01 Dose: 1 mg Documented By: GAGANDEEP Cefazolin Sodium/Dextrose (Ancef) 2 gm in 50 mls @ 100 mls/hr IV MoWeFr@1800 [facility] Last Infusion: 06/06/24 19:34 Dose: Infused Documented By: MELIDA Levothyroxine Sodium (Levothyroxine Sodium 50 Mcg Tablet) 50 mcg PO DAILY@0600 [facility] Last Admin: 06/07/24 06:46 Dose: 50 mcg Documented By: MELIDA Lidocaine (Lidocaine 4 % Patch Adh..Patch) 2 patch TRANSDERMA DAILY [facility]; Protocol Last Admin: 06/07/24 08:00 Dose: 2 patch Documented By: GAGANDEEP Omeprazole (Omeprazole 40 Mg Capsule.Dr) 40 mg PO DAILY@0630 [facility] Last Admin: 06/07/24 06:46 Dose: 40 mg Documented By: MELIDA Pharmacy Consult (Consult Rx Anticoag Dosing) 1 each MISCELLANE DAILY PRN; Protocol PRN Reason: Consult order Vitamin D (Cholecalciferol (Vitamin D3) 25 Mcg Tablet) 25 mcg PO DAILY [facility] Last Admin: 06/07/24 08:02 Dose: 25 mcg Documented By: GAGANDEEP Labs 06/02/24 07:47 06/07/24 08:13 Labs: Laboratory Results - last 24 hr 06/07/24 08:13 Anion Gap 16 Estim Creat Clear Calc 8.9 Estimated GFR 8 Random Glucose 93 Calcium 9.1 Microbiology Microbiology Results: Microbiology 06/01/24 07:46 Blood Culture - Final Blood - Venous No growth after 5 days. 06/01/24 07:46 Blood Culture - Final Blood - Venous No growth after 5 days. Assessment and Plan (1) MSSA bacteremia: Status: Acute (2) ESRD (end stage renal disease): Status: Acute Plan This is an 84-year-old Maori-speaking male with history of end-stage renal disease on hemodialysis, COPD, GERD, hyperlipidemia, PVD, hypothyroidism who presented to the emergency department with weakness and multiple episodes of vomiting found to have hypotension. Chest x-ray showed possible left lower lobe pneumonia. He was admitted to the ICU for vasopressor support. Blood cultures grew GPC. He was downgraded from the medical floor on May 31. MSSA bacteremia per ID less likely due to pneumonia, likely r/t AV fistula ulceration Initially treated with IV vancomycin, changed to cefazolin 2g MWF after HD for 4 weeks per ID echo no vegetation, ct no acute finding repeat culture negative x 5 days Nonpressure ulcer AV fistula no evidence of acute active infection on exam but ?cause of above bacteremia Per vascular surgery, concern that ulceration may have weakened graft. Plan to take to OR today for possible revision. after IR consult for permacath placement thursday 06/07. Will also need to be npo after midnight tuesday 0001 septic shock due to bacteremia and possible pneumonia- downgraded from icu 05/31 cxr showing possible pneumonia, more likely due to above initially treated with IV vanco and zosyn - zosyn stopped in ICU. transitioning to cefazolin as above cultures growing MSSA due to history of dysphagia seen by speech- no signs of aspiration, continue regular diet Chronic R shoulder pain lidocaine patch, tylenol Elevated troponin Likely type 2 due to demand from hypotension No chest pain ESRD on HD MWF schedule nephrology following Acute on chronic anemia, likely of chronic disease No evidence of acute blood loss s/p 1 unit RBCs 06/01 with improvement in H/H Thrombocytopenia Chronic Follow CBC Hypothyroidism Continue Synthroid Mild transaminitis Likely due to hypotension Trend LFTs GERD Continue PPI DVT prophylaxis Lovenox Patient will need ongoing stay in the hospital for management of bacteremia requiring IV antibiotics, need for graft revision and permacath placement for HD. PT recommending STR patient initially refusing. Will readdress with patient and son, Gian johansen to transfer to med/surg Quality Stroke Does the patient have a stroke diagnosis?: No VTE Prior VTE?: No VTE Risk Level:: Medical - moderate - high VTE Device Contraindication: N/A - Device Ordered VTE Drug Contraindication: N/A - Med Ordered
--- NOTE | 2024-06-07 13:08 | PC.NURSE ---
Pt arrived to [facility] w/IV x 2. right forearm and right upper arm. RN flused IV x 2. IV noted to be placed on 05/30/24, confirmed with pt. RN d/w Dr. Jose and MD lopez'nathaly use of IV. Notified anesthesia and floor nurse made aware.
--- NOTE | 2024-06-07 13:42 | MHC.SHP ---
Pre-Procedural Eval Section A - 24 Hr Update-Section A only Date of Service: 06/07/24 The patient is an INPATIENT: Yes Changes since office visit: Yes Patient answered all questions The patient has been examined within 24 hours of the surgical procedure. The History & Physical has been completed within 30 days and I have reviewed it.: Yes Section B - Complete if H&P > 30 days Chief Complaint: nausea/ vomiting. diarrhea Allergies: Allergies Allergy/AdvReac Type Severity Reaction Status Date / Time No Known Allergies Allergy Mild NONE Verified 06/07/24 13:06 Plan I have reviewed the history and physical and performed a pertinent physical examination on my patient. No changes have occurred unless specified. Time Spent With Patient Time: Total time managing care of this patient today ____ minutes.
--- NOTE | 2024-06-07 14:20 | HO.ANESPROP2 ---
HPI - Anesthesia Eval Consult details Narrative: 84 yo M admitted with infected left AV fistula. PMF Active Problems Active Problems: All Active Problems (Updated 06/02/24 @ 14:33 by Kate Jha MD) MSSA bacteremia (Acute) ESRD (end stage renal disease) (Acute) Gram-positive bacteremia (Acute) Sepsis (Acute) Acute hypotension (Acute) Pneumonia (Acute) Hypomagnesemia (Acute) CKD (chronic kidney disease) stage 5, GFR less than 15 ml/min (Acute) Anemia (Acute) Macrocytic anemia (Acute) Encephalopathy (Acute) Uremia (Acute) Acute on chronic kidney failure (Acute) Acute hyperkalemia (Acute) Dysphagia (Acute) Past Medical History Medical History MSSA bacteremia ESRD (end stage renal disease) Dialysis patient COVID-19 vaccine administered Renal failure COPD (chronic obstructive pulmonary disease) Thyroid disease GERD (gastroesophageal reflux disease) Elevated cholesterol PVD (peripheral vascular disease) Prostate CA HTN (hypertension) Heart attack Family History Family history of problems with anesthesia: No Surgical History Surgical History Hx of cataract surgery Hx of cystoscopy History of incision and drainage H/O colonoscopy Hx of aortic valve replacement Hx of CABG History of Problems with Anesthesia: No Social History Social History Household Members: Family Household Members Other:: Lives with son.. Housing: House Are you a primary interior plant caretaker to a significant other at home: No Do you presently have visiting nurse or other home services: No Alcohol intake: never Patient Tobacco Use Status: Never used Tobacco Smoked in Last 30 Days: No Use of substances other than those prescribed or required for medical reasons: No Currently Displaying Signs/Symptoms of Drug Intoxication Withdrawal: No Have you been hit, kicked, punched, or otherwise hurt by someone within the past year? If so, by whom?: No Do you feel safe in your current relationship?: No Current Relationship Is there a partner from a previous relationship who is making you feel unsafe now?: No Are you made to feel afraid or neglected: No Are you DNR?: No Advance Directives: No Advance Directives Information Provided: No Do you have a plan to hurt others: No Plan Recently lost weight without trying: No Eating poorly because of decreased appetite: No Nutrition Risks: No Nutritional Risk Poor oral hygiene: No service: No Current occupational status: disabled Meds Allergies Allergy/AdvReac Type Severity Reaction Status Date / Time No Known Allergies Allergy Mild NONE Verified 06/07/24 13:06 Active Medications: Current Medications Acetaminophen (Acetaminophen 325 Mg Tablet) 650 mg PO Q4H PRN PRN Reason: Pain, Mild (Pain Scale 1-3) Last Admin: 06/07/24 10:37 Dose: 650 mg Allopurinol (Allopurinol 100 Mg Tablet) 100 mg PO DAILY [facility] Last Admin: 06/07/24 08:02 Dose: 100 mg Aspirin (Aspirin Enteric Coated 81 Mg Tablet.) 81 mg PO DAILY [facility] Last Admin: 06/07/24 08:01 Dose: 81 mg Cyanocobalamin (Cyanocobalamin (Vitamin B-12) 1,000 Mcg Tablet) 1,000 mcg PO DAILY [facility] Last Admin: 06/07/24 08:02 Dose: 1,000 mcg Enoxaparin Sodium (Enoxaparin Sodium 30 Mg/0.3 Ml Syringe) 30 mg SUBCUT Q24H [facility] Last Admin: 06/06/24 22:57 Dose: 30 mg Folic Acid (Folic Acid 1 Mg Tablet) 1 mg PO DAILY [facility] Last Admin: 06/07/24 08:01 Dose: 1 mg Cefazolin Sodium/Dextrose (Ancef) 2 gm in 50 mls @ 100 mls/hr IV MoWeFr@1800 [facility] Last Infusion: 06/06/24 19:34 Dose: Infused Levothyroxine Sodium (Levothyroxine Sodium 50 Mcg Tablet) 50 mcg PO DAILY@0600 [facility] Last Admin: 06/07/24 06:46 Dose: 50 mcg Lidocaine (Lidocaine 4 % Patch Adh..Patch) 2 patch TRANSDERMA DAILY [facility]; Protocol Last Admin: 06/07/24 08:00 Dose: 2 patch Omeprazole (Omeprazole 40 Mg Capsule.) 40 mg PO DAILY@0630 [facility] Last Admin: 06/07/24 06:46 Dose: 40 mg Pharmacy Consult (Consult Rx Anticoag Dosing) 1 each MISCELLANE DAILY PRN; Protocol PRN Reason: Consult order Vitamin D (Cholecalciferol (Vitamin D3) 25 Mcg Tablet) 25 mcg PO DAILY [facility] Last Admin: 06/07/24 08:02 Dose: 25 mcg Home Medications ?Medication ?Instructions ?Recorded ?Confirmed ?Last Taken ?Type allopurinol 100 mg tablet 100 mg PO DAILY 12/30/20 05/31/24 06/28/23 History aspirin 81 mg tablet,delayed 81 mg PO DAILY 12/30/20 05/31/24 06/28/23 History release atorvastatin 80 mg tablet 80 mg PO BEDTIME 12/30/20 05/31/24 06/28/23 History cholecalciferol (vitamin D3) 25 25 mcg PO DAILY 12/30/20 05/31/24 06/28/23 History mcg (1,000 unit) capsule (Vitamin D3) levothyroxine 50 mcg tablet 50 mcg PO DAILY@0600 12/30/20 05/31/24 06/28/23 History omeprazole 20 mg capsule,delayed 20 mg PO DAILY@0630 12/30/20 06/01/24 06/28/23 History release cyanocobalamin (vitamin B-12) 1,000 mcg PO DAILY 06/10/23 05/31/24 06/28/23 History 1,000 mcg tablet cyclosporine 0.05 % eye drops 1 drp ophthalmic (eye) BID 06/10/23 05/31/24 06/28/23 History (Restasis MultiDose) Exam Exam Date and Time: 06/07/24 1330 Height,Weight and Vital Signs: Height 6 ft Weight 83.9 kg Last Vital Signs Temp 97.2 F 06/07/24 12:53 Pulse 70 06/07/24 12:53 Resp 16 06/07/24 12:53 BP 128/64 06/07/24 12:53 Pulse Ox 98 06/07/24 12:53 O2 Del Method Room Air 06/07/24 12:53 O2 Flow Rate 95 06/03/24 07:46 Pertinent Lab Results Pertinent Lab Results: Laboratory Tests 05/30/24 05/30/24 05/30/24 20:25 21:05 23:00 WBC 15.9 H RBC 3.22 L Hgb 9.2 L Hct 28.9 L MCV 89.8 MCH 28.6 MCHC 31.8 RDW 16.9 H Plt Count 135 L MPV 13.4 H Immature Gran % (Auto) 0.9 H Neut % (Auto) 87.5 H Lymph % (Auto) 1.9 L [place] % (Auto) 9.4 Eos % (Auto) 0.0 Baso % (Auto) 0.3 Lymph # (Auto) 0.3 L [place] # (Auto) 1.5 H Eos # (Auto) 0.0 Baso # (Auto) 0.0 Abs Immat Gran (auto) 0.15 H Absolute Neuts (auto) 13.9 H Absolute Nucleated RBC 0.000 Nucleated RBC % (auto) 0.0 Smear Tech's Comments VERIFIED Hold Purple Top SEE NOTE Hold Blue Top SEE NOTE VBG pH 7.53 H VBG pCO2 39 VBG pO2 112 VBG HCO3 33 H VBG O2 Saturation 98.0 VBG Base Excess 10.5 Sodium 143 Potassium 3.4 Chloride 100 Carbon Dioxide 30 H Anion Gap 16 BUN 30 H Creatinine 4.22 H* Estim Creat Clear Calc 14.0 Estimated GFR 13 POC Glucose Random Glucose 133 H Lactic Acid 2.9 H* Lactic Acid F/U @ 2Hr 1.7 Calcium 10.0 D Phosphorus 0.7 L* Magnesium 1.5 L Total Bilirubin 0.7 Direct Bilirubin 0.2 AST 20 ALT 11 Alkaline Phosphatase 65 Troponin I High Sens 75.6 H 166.7 H* D Total Protein 7.0 Albumin 3.6 Hold Green Top See Note Random Vancomycin COVID-19 ([facility]) Negative COVID-19 Clin Com See Note Blood Type Antibody Screen Crossmatch 05/31/24 05/31/24 05/31/24 05:40 05:50 10:57 WBC 13.9 H RBC 2.88 L Hgb 8.4 L Hct 26.4 L MCV 91.7 MCH 29.2 MCHC 31.8 RDW 17.1 H Plt Count 98 L D MPV 11.9 Immature Gran % (Auto) 0.6 H Neut % (Auto) 86.0 H Lymph % (Auto) 3.8 L [place] % (Auto) 8.5 Eos % (Auto) 0.9 Baso % (Auto) 0.2 Lymph # (Auto) 0.5 L [place] # (Auto) 1.2 Eos # (Auto) 0.1 Baso # (Auto) 0.0 Abs Immat Gran (auto) 0.09 H Absolute Neuts (auto) 12.0 H Absolute Nucleated RBC 0.000 Nucleated RBC % (auto) 0.0 Smear Tech's Comments Hold Purple Top Hold Blue Top VBG pH 7.65 H* VBG pCO2 22 VBG pO2 48 VBG HCO3 24 VBG O2 Saturation 89.0 VBG Base Excess 4.8 Sodium 140 Potassium 4.3 D Chloride 103 Carbon Dioxide 23 Anion Gap 18 BUN 31 H Creatinine 4.67 H* Estim Creat Clear Calc 12.6 Estimated GFR 12 POC Glucose Random Glucose 207 H Lactic Acid Lactic Acid F/U @ 2Hr Calcium 8.6 D Phosphorus 4.4 Magnesium 2.1 Total Bilirubin 0.8 Direct Bilirubin AST 71 H ALT 43 H Alkaline Phosphatase 54 Troponin I High Sens 259.8 H* D Total Protein 6.1 L Albumin 3.4 L Hold Green Top Random Vancomycin COVID-19 ([facility]) Culture [facility] Blood Type Antibody Screen Crossmatch 05/31/24 05/31/24 05/31/24 12:09 16:22 20:04 WBC RBC Hgb Hct MCV MCH MCHC RDW Plt Count MPV Immature Gran % (Auto) Neut % (Auto) Lymph % (Auto) [place] % (Auto) Eos % (Auto) Baso % (Auto) Lymph # (Auto) [place] # (Auto) Eos # (Auto) Baso # (Auto) Abs Immat Gran (auto) Absolute Neuts (auto) Absolute Nucleated RBC Nucleated RBC % (auto) Smear Tech's Comments Hold Purple Top Hold Blue Top VBG pH VBG pCO2 VBG pO2 VBG HCO3 VBG O2 Saturation VBG Base Excess Sodium Potassium Chloride Carbon Dioxide Anion Gap BUN Creatinine Estim Creat Clear Calc Estimated GFR POC Glucose 77 102 103 Random Glucose Lactic Acid Lactic Acid F/U @ 2Hr Calcium Phosphorus Magnesium Total Bilirubin Direct Bilirubin AST ALT Alkaline Phosphatase Troponin I High Sens Total Protein Albumin Hold Green Top Random Vancomycin COVID-19 ([facility]) Culture [facility] Blood Type Antibody Screen Crossmatch 06/01/24 06/01/24 06/01/24 05:58 07:32 09:59 WBC 6.3 RBC 2.60 L Hgb 7.4 L Hct 23.7 L MCV 91.2 MCH 28.5 MCHC 31.2 RDW 17.0 H Plt Count 84 L MPV 13.2 H Immature Gran % (Auto) 0.5 H Neut % (Auto) 73.9 H Lymph % (Auto) 12.9 L [place] % (Auto) 12.0 H Eos % (Auto) 0.2 Baso % (Auto) 0.5 Lymph # (Auto) 0.8 L [place] # (Auto) 0.8 Eos # (Auto) 0.0 Baso # (Auto) 0.0 Abs Immat Gran (auto) 0.03 Absolute Neuts (auto) 4.6 Absolute Nucleated RBC 0.000 Nucleated RBC % (auto) 0.0 Smear Tech's Comments Hold Purple Top Hold Blue Top VBG pH VBG pCO2 VBG pO2 VBG HCO3 VBG O2 Saturation VBG Base Excess Sodium 142 Potassium 4.5 Chloride 106 Carbon Dioxide 25 Anion Gap 16 BUN 54 H Creatinine 6.16 H* Estim Creat Clear Calc 9.6 Estimated GFR 9 POC Glucose 76 Random Glucose 86 Lactic Acid Lactic Acid F/U @ 2Hr Calcium 8.2 L Phosphorus 4.6 H Magnesium 1.9 Total Bilirubin Direct Bilirubin AST ALT Alkaline Phosphatase Troponin I High Sens Total Protein Albumin Hold Green Top Random Vancomycin COVID-19 ([facility]) [facility] Blood Type A Positive Antibody Screen NEGATIVE Crossmatch See Detail 06/01/24 06/01/24 06/01/24 11:15 18:08 20:17 WBC RBC Hgb Hct MCV MCH MCHC RDW Plt Count MPV Immature Gran % (Auto) Neut % (Auto) Lymph % (Auto) [place] % (Auto) Eos % (Auto) Baso % (Auto) Lymph # (Auto) [place] # (Auto) Eos # (Auto) Baso # (Auto) Abs Immat Gran (auto) Absolute Neuts (auto) Absolute Nucleated RBC Nucleated RBC % (auto) Smear Tech's Comments Hold Purple Top Hold Blue Top VBG pH VBG pCO2 VBG pO2 VBG HCO3 VBG O2 Saturation VBG Base Excess Sodium Potassium Chloride Carbon Dioxide Anion Gap BUN Creatinine Estim Creat Clear Calc Estimated GFR POC Glucose 133 H 104 Random Glucose Lactic Acid Lactic Acid F/U @ 2Hr Calcium Phosphorus Magnesium Total Bilirubin Direct Bilirubin AST ALT Alkaline Phosphatase Troponin I High Sens Total Protein Albumin Hold Green Top Random Vancomycin 12.9 L COVID-19 ([facility]) [facility] Blood Type Antibody Screen Crossmatch 06/01/24 06/02/24 06/02/24 21:11 07:32 07:47 WBC 5.6 RBC 3.09 L Hgb 8.8 L Hct 27.4 L MCV 88.7 MCH 28.5 MCHC 32.1 RDW 17.3 H Plt Count 88 L MPV 13.6 H Immature Gran % (Auto) Neut % (Auto) Lymph % (Auto) [place] % (Auto) Eos % (Auto) Baso % (Auto) Lymph # (Auto) [place] # (Auto) Eos # (Auto) Baso # (Auto) Abs Immat Gran (auto) Absolute Neuts (auto) Absolute Nucleated RBC 0.000 Nucleated RBC % (auto) 0.0 Smear Tech's Comments Hold Purple Top Hold Blue Top VBG pH VBG pCO2 VBG pO2 VBG HCO3 VBG O2 Saturation VBG Base Excess Sodium 138 Potassium 3.7 Chloride 103 Carbon Dioxide 25 Anion Gap 14 BUN 28 H Creatinine 4.67 H* Estim Creat Clear Calc 12.6 Estimated GFR 12 POC Glucose 137 H 86 Random Glucose 88 Lactic Acid Lactic Acid F/U @ 2Hr Calcium 8.8 D Phosphorus Magnesium Total Bilirubin 0.7 Direct Bilirubin 0.2 AST 76 H ALT 54 H Alkaline Phosphatase 56 Troponin I High Sens Total Protein 6.0 L Albumin 3.2 L Hold Green Top Random Vancomycin COVID-19 ([facility]) COVIDVHX Blood Type Antibody Screen Crossmatch 06/02/24 06/02/24 06/02/24 11:47 16:31 21:01 WBC RBC Hgb Hct MCV MCH MCHC RDW Plt Count MPV Immature Gran % (Auto) Neut % (Auto) Lymph % (Auto) [place] % (Auto) Eos % (Auto) Baso % (Auto) Lymph # (Auto) [place] # (Auto) Eos # (Auto) Baso # (Auto) Abs Immat Gran (auto) Absolute Neuts (auto) Absolute Nucleated RBC Nucleated RBC % (auto) Smear Tech's Comments Hold Purple Top Hold Blue Top VBG pH VBG pCO2 VBG pO2 VBG HCO3 VBG O2 Saturation VBG Base Excess Sodium Potassium Chloride Carbon Dioxide Anion Gap BUN Creatinine Estim Creat Clear Calc Estimated GFR POC Glucose 124 H 118 H 105 Random Glucose Lactic Acid Lactic Acid F/U @ 2Hr Calcium Phosphorus Magnesium Total Bilirubin Direct Bilirubin AST ALT Alkaline Phosphatase Troponin I High Sens Total Protein Albumin Hold Green Top Random Vancomycin COVID-19 ([facility]) COVIDVHX Blood Type Antibody Screen Crossmatch 06/03/24 06/03/24 06/04/24 07:34 16:19 05:45 WBC RBC Hgb Hct MCV MCH MCHC RDW Plt Count MPV Immature Gran % (Auto) Neut % (Auto) Lymph % (Auto) [place] % (Auto) Eos % (Auto) Baso % (Auto) Lymph # (Auto) [place] # (Auto) Eos # (Auto) Baso # (Auto) Abs Immat Gran (auto) Absolute Neuts (auto) Absolute Nucleated RBC Nucleated RBC % (auto) Smear Tech's Comments Hold Purple Top SEE NOTE Hold Blue Top VBG pH VBG pCO2 VBG pO2 VBG HCO3 VBG O2 Saturation VBG Base Excess Sodium 140 Potassium 4.2 Chloride 103 Carbon Dioxide 24 Anion Gap 17 BUN 57 H Creatinine 8.07 H* Estim Creat Clear Calc 7.3 Estimated GFR 6 POC Glucose 77 109 Random Glucose 88 Lactic Acid Lactic Acid F/U @ 2Hr Calcium 8.8 Phosphorus Magnesium Total Bilirubin Direct Bilirubin AST ALT Alkaline Phosphatase Troponin I High Sens Total Protein Albumin Hold Green Top Random Vancomycin COVID-19 ([facility]) Culture [facility] Blood Type Antibody Screen Crossmatch 06/05/24 06/06/24 06/07/24 06:23 08:04 08:13 WBC RBC Hgb Hct MCV MCH MCHC RDW Plt Count MPV Immature Gran % (Auto) Neut % (Auto) Lymph % (Auto) [place] % (Auto) Eos % (Auto) Baso % (Auto) Lymph # (Auto) [place] # (Auto) Eos # (Auto) Baso # (Auto) Abs Immat Gran (auto) Absolute Neuts (auto) Absolute Nucleated RBC Nucleated RBC % (auto) Smear Tech's Comments Hold Purple Top SEE NOTE Hold Blue Top VBG pH VBG pCO2 VBG pO2 VBG HCO3 VBG O2 Saturation VBG Base Excess Sodium 137 136 132 L Potassium 4.0 4.4 4.2 Chloride 102 101 99 Carbon Dioxide 21 L 22 21 L Anion Gap 18 17 16 BUN 37 H 61 H 45 H Creatinine 6.48 H* 8.51 H* 6.65 H* Estim Creat Clear Calc 9.1 6.9 8.9 Estimated GFR 8 6 8 POC Glucose Random Glucose 92 99 93 Lactic Acid Lactic Acid F/U @ 2Hr Calcium 9.0 9.0 9.1 Phosphorus Magnesium Total Bilirubin Direct Bilirubin AST ALT Alkaline Phosphatase Troponin I High Sens Total Protein Albumin Hold Green Top Random Vancomycin COVID-19 ([facility]) COVIDVHX Blood Type Antibody Screen Crossmatch Airway Mallampati Class: III TM Dist: >3cm Neck ROM: Limited Denture: Upper and Lower Heart: S1S2 Lungs: CTAB Assessment and Plan Assessment Anesthesia Assessment: Anesthesia Plan Discussed and Chart Reviewed Final Anesthetic Review Family History of Problems with Anesthesia: No History of Problems with Anesthesia: No NPO: Yes ASA Class: III Final Preanesthetic Review: No Changes in Pt Med Stat, Meds/Allgs Chart Reviewed, Consent Obtained/Reviewed and Anes Risks/Benef Reviewed (library consultant at bedside for translation) Patient Risk: High Procedure Risk: Low Anesthetic Plan Anesthetic Plan: GA, Regional Block (left brachial plexus block) and Agree w/ Assess. and Plan Disposition: Standard PACU
--- NOTE | 2024-06-07 16:14 | P.OP_ITS ---
Operative Note Operative Note Date of Service: 06/07/24 Narrative: Operative note by [facility] Preoperative diagnosis:1. End-stage renal disease 2. Ulcerated aneurysmal left upper extremity fistula Postoperative diagnosis: Same Procedure: Exploration of aneurysmal portion of left upper extremity fistula 2. Plication of fistula 3. Excision of ulcerated area of skin Surgeon:Theodore Jose M.D. Miller Head: None Anesthesia: General with block by Dr. Bo Specimens: None Drains: None Estimated blood loss: 50 mL Indications: 84-year-old gentleman with end-stage renal disease with left upper extremity what appears to be a fistula which was placed at [facility] since 2020. He has been bacteremic it has an ulcerated area which was concerning for underlying graft. He now presents for exploration possible revision possible excision. The patient has signed the informed consent after reviewing risks, complications, benefits, and alternatives previously discussed with the patient. The patient was given the opportunity to ask any additional questions or voice any concerns. All questions were answered to the patient's satisfaction. Procedure in detail: Patient was brought to the operating room prior to which a time-out was called for patient identification site verification. Left upper extremity was prepped and draped in standard surgical fashion. We went to the aneurysmal portion in the more lateral aspect of the fistula. Incision was houser ied out over the overlying aneurysmal portion on the lateral aspect of it. We were able to dissect down and identify this area. It was quite adherent and we were able to slowly dissect this free. There was an area that was ulcerated on anterior aspect of it. Once this was dissected clear the open area was plicated and closed over with a 5 0 Prolene suture. Once this was accomplished there was additional portion that was noted to be quite aneurysmal and very thin. Once again this was plicated over with a 5 0 Prolene suture. Once this was all accomplished this ulcerated area on the anterior aspect was excised using a 15 blade. Once this was accomplished we obtained adequate hemostasis we irrigated this wound completely we will raised superior and inferior flaps. Once these flaps were created we were able to bring the incision together using 3-0 Polysorb. Finally skin was closed using a 4-0 Monocryl. Steri-Strips and a sterile dressing were applied. At the end the case sponge instrument counts were correct. Patient tolerated the procedure well. Returned to recovery with stable vitals. This note is constructed using voice recognition software. While every effort has been made to ensure accuracy, supervisor electronic coils errors may have been included. Thank you for allowing me to participate in the care of your patient. Yours sincerely, Theodore Jose MD, FACS, R.P.V.I.
[2024-06-07] MEDS: Enoxaparin Sodium 30 MG/0.3 ML SYRINGE SUBCUT (23:02)
[2024-06-08 03:21] VITALS: BP 138/73; PULSE 90; RESP 20; TEMP 36.1; O2SAT 96
[2024-06-08 06:00] VITALS: BMI 25.0
[2024-06-08] MEDS: Levothyroxine Sodium 50 MCG TABLET PO (06:23)
[2024-06-08] MEDS: Omeprazole 40 MG CAPSULE.DR PO (06:23)
--- NOTE | 2024-06-08 07:26 | P.DS_ITS ---
DS: Providers Provider Date of Service: 06/08/24 Date of admission: 05/30/24 22:40 Primary care physician: Adriane Higuera MD Consults: 05/31/24 04:28 Consult to Nephrology Stat Consulting Provider: [facility] [place] [facility] Reason for consultation: HD patient 06/01/24 09:36 Consult to Nephrology Routine Consulting Provider: [facility] Reason for consultation: ESRD on HD Has provider been notified: No 06/02/24 07:24 Consult to Infectious Diseases Routine Consulting Provider: [facility] [place] [facility] Reason for consultation: staph bacteremia Has provider been notified: No 06/04/24 09:59 Consult to Vascular Surgery Routine Consulting Provider: [facility] [place] [facility] Reason for consultation: wound overlying av fistula. consult per nephro 06/06/24 08:36 Consult to Wound Care Routine Reason for consultation: Left arm wound Has provider been notified: Yes DS: Diagnosis Discharge Diagnosis (1) MSSA bacteremia: Status: Acute (2) ESRD (end stage renal disease): Status: Acute DS: Summary Hospital Course Hospital Course: admission hpi Chief Complaint: Nausea/Vomiting/Diarrhea Mr. 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 weakness and multiple episodes of vomiting during the day.?He denied chest pain, shortness of breath, abdominal pain, and no N/ V/D on arrival.?The patient had dialysis earlier in the day. On arrival to the emergency room, the patient's blood pressure 84/36, heart rate 104, temp 100.0,?O2 sat 87% on RA.? Laboratory data significant for WBC 15.9, hemoglobin 9.2, hematocrit 28.9, platelet 135,? CO2 30, BUN 30, creatinine 4.22, lactic acid 2.9, phosphorus 0.7, magnesium 1.5, troponin 75.6. VBG 7.53/39/112/33. Imaging: CXR showed possible left lower lobe pneumonia.?? ED course: ? The patient? received a total of 2600 mL normal saline, 2 bags albumin, Compazine, Tylenol, ceftriaxone 1 g, azithromycin 500 mg, magnesium sulfate 2 g? and was started on a Levophed drip. Hospital course: 84-year-old Vietnamese-speaking male with history of end-stage renal disease on hemodialysis, COPD, GERD, hyperlipidemia, PVD, hypothyroidism who presented to the emergency department with weakness and multiple episodes of vomiting found to have hypotension. Chest x-ray showed possible left lower lobe pneumonia. He was admitted to the ICU for IV fluid rescuciation along with vasopressor support. Blood cultures grew GPC whicch turned out to be MSSA, he was transfered out of the ICU same day. Hospital course has been complicated malfunctioning dialysis fistula which was repaired on 06/07/24 by vascular surgery. Hospital course by problems MSSA bacteremia--likely related to AV fistula site ulceration and less liekly pneumonia. He was intially treated with vancomycin, repeat culture negative > 5 days. echo show no endocarditis. ID recommends 4 weeks of Cefzolin post dialysis Septic shock due to above--resolved with IVF and vasopressor in the ICU Nonpressure ulcer AV fistula--no evidence of active infection. Vascular surgery repaired the fistula on 06/07 and deemed it usable Chronic R shoulder pain lidocaine patch, tylenol Elevated troponin Likely type 2 FL due to demand from hypotension No chest pain ESRD on HD MWF schedule nephrology following Acute on chronic anemia, likely of chronic disease No evidence of acute blood loss was transfused 1 unit RBCs 06/01 with improvement in H/H Thrombocytopenia Chronic and stable Follow CBC Hypothyroidism Continue Synthroid Mild transaminitis Likely due to hypotension Trend LFTs GERD Continue PPI Heart block--Noted to have Wenckebach, ( Mobitz Type I Second-Degree Atrioventricular (AV) Block,) overnight on monitor, no ECG -ECG this morning shows first degree AVB, no BB or CCB, monitor and has been homodynamically stabl, there is no indication for any intervention at this time. Would recommend outpatient holter, to be arrange through PCP office with [facility] cardiovascular Time Attestation Discharge Coordination Time (in mins): 45 Quality: Safe Use of Opioids Does Pt have an Active Cancer Diagnosis on the Problem List?: No Quality: Stroke Does the patient have a stroke diagnosis?: No Physical Exam Vital Signs: Vital Signs: Last Vital Signs Temp 97.0 F 06/08/24 03:21 Pulse 90 06/08/24 03:21 Resp 20 06/08/24 03:21 BP 138/73 06/08/24 03:21 Pulse Ox 96 06/08/24 03:21 O2 Del Method Room Air 06/08/24 03:21 O2 Flow Rate 95 06/07/24 15:46 BMI result Body Mass Index 25.0 Constitutional - Awake and Alert, No apparent distress Eyes - PERRLA, EOMI Cardiovascular - S1S2, RRR, No edema Respiratory - Normal lung expansion, Normal respiratory effort, No respiratory distress, CTA bilaterally Gastrointestinal - NT / ND; +BS; No rebound or guarding Extremities - no calf tenderness bilaterally, no swelling Skin - Warm/Dry. Superficial non pressure ulceration overlying AV fistula LUE without purulent drainage or surrounding erythema Neurological - Alert & oriented x3, 5/5 strength BUE Psychological - Appropriate affect DS: Data Data Completed and Pending Completed studies during hospitalization [Text1]: Procedures Insertion of Infusion Device into Superior Vena Cava, Percutaneous Approach (01/12/21) Insertion of Tunneled Vascular Access Device into Chest Subcutaneous Tissue and Fascia, Percutaneous Approach (01/12/21) Performance of Urinary Filtration, Intermittent, Less than 6 Hours Per Day (01/12/21) Transfusion of Nonautologous Red Blood Cells into Peripheral Vein, Percutaneous Approach (01/12/21) Ultrasonography of Superior Vena Cava, Guidance (01/12/21) Labs on day of discharge: Laboratory Results - last 24 hr 06/07/24 08:13 Sodium 132 L Potassium 4.2 Chloride 99 Carbon Dioxide 21 L Anion Gap 16 BUN 45 H Creatinine 6.65 H* Estim Creat Clear Calc 8.9 Estimated GFR 8 Random Glucose 93 Calcium 9.1 Discharge Plan Discharge Anticipated Discharge Date/Time: 06/08/24 07:29 Patient Disposition: Home Health Service Discharge Diagnosis: MSSA bacteremia, pneumonia Referrals: Adriane Higuera MD [Primary Care Provider] - 1 Week Discharge Medications: New cefazolin in dextrose (iso-os) 2 gram/50 mL Piggyback 50 ml IV MoWeFr@1800 Qty: 12 0RF Rx Instructions: To be given after dialysis Continued atorvastatin 80 mg tablet 80 mg PO BEDTIME allopurinol 100 mg tablet 100 mg PO DAILY aspirin 81 mg tablet,delayed release (DR/EC) 81 mg PO DAILY levothyroxine 50 mcg tablet 50 mcg PO DAILY@0600 omeprazole 20 mg capsule,delayed release(DR/EC) 20 mg PO DAILY@0630 cholecalciferol (vitamin D3) [Vitamin D3] 25 mcg (1,000 unit) Capsule 25 mcg PO DAILY folic acid 1 mg tablet 1 mg PO DAILY Qty: 30 0RF cyanocobalamin (vitamin B-12) 1,000 mcg tablet 1,000 mcg PO DAILY Restasis MultiDose 0.05 % drops 1 drp ophthalmic (eye) BID Discharge Orders: Discharge Order (Routine); Ordered 06/08/24 Ordered By: Vaibhav Jaramillo Diet: Advance to usual diet Activity on Discharge: As tolerated Stand Alone Forms: Patient Portal Discharge page Print Language: Vietnamese Care Plan Goals: recovery from sepsis, bacteremia and pneumonia Health Concerns: sepsis, pneumonia, bacteremia Plan of Treatment: home with VNA takeIV Kefzol after dialysis, for 4 weeks, starting Tuesday or (12 doses) follow up with your Doctor in a week Assessment: see above
[2024-06-08 07:32] VITALS: BP 137/77; PULSE 64; RESP 18; TEMP 36.2; O2SAT 98
[2024-06-08] MEDS: Lidocaine 4 % Patch ADH..PATCH 2 PATCH TRANSDERMA (08:10)
[2024-06-08] MEDS: allopurinoL 100 MG TABLET PO (08:10)
[2024-06-08] MEDS: Folic Acid 1 MG TABLET PO (08:10)
[2024-06-08] MEDS: Cyanocobalamin (Vitamin B-12) 1,000 MCG TABLET 1000 MCG PO (08:10)
[2024-06-08] MEDS: Cholecalciferol (Vitamin D3) 25 MCG TABLET PO (08:10)
[2024-06-08] MEDS: Aspirin Enteric Coated 81 MG TABLET.DR PO (08:10)
--- NOTE | 2024-06-08 08:24 | ECG_ITS ---
Test Reason : Rhythm change Blood Pressure : / mmHG Vent. Rate : 055 BPM Atrial Rate : 055 BPM P-R Int : 272 ms QRS Dur : 094 ms QT Int : 426 ms P-R-T Axes : 065 064 086 degrees QTc Int : 407 ms Sinus bradycardia with 2nd degree SA block (Mobitz I) Abnormal ECG When compared with ECG of 30-MAY-2024 20:10, Sinus bradycardia with 2nd degree SA block (Mobitz I) is now Present Vent. rate has decreased BY 46 BPM QT has shortened Referred By: Vaibhav Jaramillo Electronically Signed By:AMERICA KNIGHT
--- NOTE | 2024-06-08 09:28 | HO.VASCPN ---
Subjective Subjective Date of Service: 06/08/24 Patient reports: no new complaints and feels better Interval history: Patient seen and examined. Postop day 1 status post revision of a fistula. The forearm loop graft appeared to be intact. The ulcerated area was resected and the aneurysmal portion of the graft was plicated. Appear to be functioning well and there was no overt signs of infection. We maintained the loop graft. Appears to be functioning well. Now doing well postoperatively. denies any hand pain. Now for postoperative follow-up. Physical Exam Vital Signs: Vital Signs: Last Vital Signs Temp 97.2 F 06/08/24 07:32 Pulse 64 06/08/24 07:32 Resp 18 06/08/24 07:32 BP 137/77 06/08/24 07:32 Pulse Ox 98 06/08/24 07:32 O2 Del Method Room Air 06/08/24 07:32 O2 Flow Rate 95 06/07/24 15:46 BMI result Body Mass Index 25.0 Const: General: cooperative, healthy appearing and no acute distress Orientation/consciousness: oriented to person, oriented to place and oriented to time HEENT: Head: Yes normal to inspection Neck: Carotids: no bruits Chest: Chest palpation & inspection: normal inspection of the chest Resp: Effort & Inspection: normal respiratory effort and able to speak in complete sentences Auscultation: clear to auscultation bilaterally Cardio: Rate: regular rate Heart sounds: S1 normal heart sound present and S2 normal heart sound present GI: Inspection: Yes normal to inspection Skin: General skin exam: no rashes or lesions noted Wounds: no wounds Neuro: General: oriented to person, oriented to place, oriented to time and CN's II-XI intact bilaterally Extrem: Other: Left upper extremity incision healing well. Excellent thrill and bruit over graft. General: Yes normal to inspection, Yes full ROM and Yes no clubbing, cyanosis or edema Psych: Appearance: grossly normal and well kempt Speech and movement: Normal speech and movement present Affect: normal affect Progress Note: A&P Assessment and plan (1) ESRD (end stage renal disease): Status: Acute Assessment and Plan: In short patient appears to be doing well postoperatively. It appears that this is a forearm loop graft may be most likely an autograft. There is an aneurysmal portion which was plicated and that ulcerated area of skin was removed. The graft appeared well incorporated in no overt signs of infection. We did make a decision to salvage this fistula. At the current time it appears to be stable in it is stable for use for dialysis. Would continue antibiotic treatment in terms of the bacteremia. Patient will follow up with us on an as-needed basis. Thank you for allowing us to assist in his care. Time Spent With Patient Time: Total time managing care of this patient today ____ minutes. Procedures Date of Service Date of Service: 06/08/24 Quality Stroke Does the patient have a stroke diagnosis?: No VTE Prior VTE?: No VTE Risk Level:: Medical - moderate - high VTE Device Contraindication: N/A - Device Ordered VTE Drug Contraindication: N/A - Med Ordered
--- NOTE | 2024-06-08 09:30 | HO.POSTANES ---
Post Anesthesia Evaluation Post Anesthesia Evaluation Date of Service: 06/07/24 Vital Signs: Vital Signs Temp Pulse Resp BP Pulse Ox O2 Del Method 06/08/24 07:32 97.2 F 64 18 137/77 98 Room Air 06/08/24 03:21 97.0 F 90 20 138/73 96 Room Air 06/07/24 23:59 98.0 F 80 20 129/73 97 Room Air Anesthesia: General Mental Status: Awake Pain Control: Satisfactory Nausea/Vomiting: None Hydration: Adequate Anesthesia-Related Issues: No Anes. Related Issues
--- NOTE | 2024-06-08 11:23 | HO.PM.IMPN ---
Subjective Subjective Date of Service: 06/08/24 Interval History: Seen in follow up for MSSA bactermia, AV fistula wound Interval history: No new complaint, AV fistula repaired yesterday Physical Exam Vital Signs: Vital Signs: Last Vital Signs Temp 97.2 F 06/08/24 07:32 Pulse 64 06/08/24 07:32 Resp 18 06/08/24 07:32 BP 137/77 06/08/24 07:32 Pulse Ox 98 06/08/24 07:32 O2 Del Method Room Air 06/08/24 07:32 O2 Flow Rate 95 06/07/24 15:46 BMI result Body Mass Index 25.0 Objective Data Active Medications Acetaminophen (Acetaminophen 325 Mg Tablet) 650 mg PO Q4H PRN PRN Reason: Pain, Mild (Pain Scale 1-3) Last Admin: 06/07/24 10:37 Dose: 650 mg Documented By: GAGANDEEP Allopurinol (Allopurinol 100 Mg Tablet) 100 mg PO DAILY [facility] Last Admin: 06/08/24 08:10 Dose: 100 mg Documented By: NATACHA Aspirin (Aspirin Enteric Coated 81 Mg Tablet.) 81 mg PO DAILY [facility] Last Admin: 06/08/24 08:10 Dose: 81 mg Documented By: NATACHA Cyanocobalamin (Cyanocobalamin (Vitamin B-12) 1,000 Mcg Tablet) 1,000 mcg PO DAILY [facility] Last Admin: 06/08/24 08:10 Dose: 1,000 mcg Documented By: NATACHA Enoxaparin Sodium (Enoxaparin Sodium 30 Mg/0.3 Ml Syringe) 30 mg SUBCUT Q24H [facility] Last Admin: 06/07/24 23:02 Dose: 30 mg Documented By: HAKEEM Folic Acid (Folic Acid 1 Mg Tablet) 1 mg PO DAILY [facility] Last Admin: 06/08/24 08:10 Dose: 1 mg Documented By: NATACHA Cefazolin Sodium/Dextrose (Ancef) 2 gm in 50 mls @ 100 mls/hr IV MoWeFr@1800 [facility] Last Infusion: 06/06/24 19:34 Dose: Infused Documented By: MELIDA Levothyroxine Sodium (Levothyroxine Sodium 50 Mcg Tablet) 50 mcg PO DAILY@0600 [facility] Last Admin: 06/08/24 06:23 Dose: 50 mcg Documented By: HAKEEM Lidocaine (Lidocaine 4 % Patch Adh..Patch) 2 patch TRANSDERMA DAILY [facility]; Protocol Last Admin: 06/08/24 08:10 Dose: 2 patch Documented By: NATACHA Omeprazole (Omeprazole 40 Mg Capsule.) 40 mg PO DAILY@0630 [facility] Last Admin: 06/08/24 06:23 Dose: 40 mg Documented By: HAKEEM Pharmacy Consult (Consult Rx Anticoag Dosing) 1 each MISCELLANE DAILY PRN; Protocol PRN Reason: Consult order Vitamin D (Cholecalciferol (Vitamin D3) 25 Mcg Tablet) 25 mcg PO DAILY [facility] Last Admin: 06/08/24 08:10 Dose: 25 mcg Documented By: NATACHA Labs 06/02/24 07:47 06/07/24 08:13 Assessment and Plan (1) MSSA bacteremia: Status: Acute (2) ESRD (end stage renal disease): Status: Acute Plan 84-year-old Tajik-speaking male with history of end-stage renal disease on hemodialysis, COPD, GERD, hyperlipidemia, PVD, hypothyroidism who presented to the emergency department with weakness and multiple episodes of vomiting found to have hypotension. Chest x-ray showed possible left lower lobe pneumonia. He was admitted to the ICU for IV fluid rescuciation along with vasopressor support. Blood cultures grew GPC whicch turned out to be MSSA, he was transfered out of the ICU same day. Hospital course has been complicated malfunctioning dialysis fistula which was repaired on 06/07/24 by vascular surgery. Hospital course by problems MSSA bacteremia--likely related to AV fistula site ulceration and less liekly pneumonia. He was intially treated with vancomycin, repeat culture negative > 5 days. echo show no endocarditis. ID recommends 4 weeks of Cefzolin post dialysis for a total of 4 weeks. Septic shock due to above--resolved with IVF and vasopressor in the ICU Nonpressure ulcer AV fistula--no evidence of active infection. Vascular surgery repaired the fistula on 06/07 and deemed it usable Chronic R shoulder pain lidocaine patch, tylenol Elevated troponin Likely type 2 NE due to demand from hypotension No chest pain ESRD on HD MWF schedule nephrology following Acute on chronic anemia, likely of chronic disease No evidence of acute blood loss was transfused 1 unit RBCs 06/01 with improvement in H/H Thrombocytopenia Chronic and stable Follow CBC Hypothyroidism Continue Synthroid Mild transaminitis Likely due to hypotension Trend LFTs GERD -PPI Heart block--Noted to have Wenckebach, ( Mobitz Type I Second-Degree Atrioventricular (AV) Block,) overnight on monitor, no ECG -ECG this morning shows first degree AVB, no BB or CCB, monitor PT recommends STR, not bed available Quality Stroke Does the patient have a stroke diagnosis?: No VTE Prior VTE?: No VTE Risk Level:: Medical - moderate - high VTE Device Contraindication: N/A - Device Ordered VTE Drug Contraindication: N/A - Med Ordered
--- NOTE | 2024-06-08 12:19 | MHC.CM.PN ---
Addendum entered by Nanette Aquino RN 06/08/24 16:00: PT'S SON FOR TRANSPORT AT 6PM Addendum entered by Nanette Aquino RN 06/08/24 15:57: PT DECLINING STR AND WILL GO HOME W/NEW VNA, CM TO FAX DC SUMMARY TO [facility] [phone] Original Note: EMR REVIEWED, PT AWAITING BED OFFER FOR STR W/HD MWF ([facility]), [facility] NOT OFFERING A BED, CM AWAITING RESPONSE FROM [facility] THEY ALSO HAVE HD ON SITE, CM WILL CONT TO FOLLOW.
[2024-06-08 14:23] VITALS: O2SAT 98
[2024-06-08 14:30] VITALS: BP 137/77; PULSE 64; O2SAT 98
--- NOTE | 2024-06-08 15:42 | W.MHC.F2F ---
Service Date Service Date: 06/08/24 Encounter Date of encounter: 06/08/24 Reasons for Services Signs and symptoms assessed: weakness Reason for nursing home: medication management and teach disease management Reason for physical therapy: home safety and mobility, therapeutic exercises and energy conservation Homebound: Leaving the home is medically contraindicated at this time without the asist of a device and/or another person due th the listed conditions above and below. Reason homebound: weakness related to hospital stay Homebound supporting statement: homebound due to weakness related to hospicalization, sepsis, unable to drive and therefore needs the assistance of another person Certification: Based on the above findings, I certify that this patient is confined to the home and needs intermittent nursing home care, physical therapy and/or speech therapy, or continues to need occupational therapy. The patient is under my care, and I have initiated the establishment of the plan of care. The patient will be followed by a physician who will periodically review the plan of care. Time Spent With Patient Time: Total time managing care of this patient today ____ minutes.
[2024-06-08 16:00] VITALS: BP 137/63; PULSE 76; RESP 18; TEMP 36.4; O2SAT 96
[2024-06-08 17:38] LABS: Glucose, Whole Blood 174 mg/dL (60-115)
== END 2024-06-08 18:57 | disposition home health service (06) | DRG 270 ==
LOC: HO.ED 22:42 → HO.EDOVER 22:49 → HO.ICU 23:23 → HO.IMC 05-31 14:21
PROVIDERS: Internal Medicine Pulmonary Disease; Physician Assistant; Physician Assistant Medical; Surgery Vascular Surgery; Admitting Provider Nurse Practitioner Family; Emergency Provider Emergency Medicine; PCP Family Medicine; Visit Provider Internal Medicine
PROC: 05V Upper Veins, Restriction (ICD-10-PCS; principal; 2024-06-07 13:30)
DX: T82.7XXA Infection and inflammatory reaction due to other cardiac and vascular devices, implants and grafts, initial encounter (principal); A41.01 Sepsis due to Methicillin susceptible Staphylococcus aureus; J18.9 Pneumonia, unspecified organism; N18.6 End stage renal disease; R65.21 Severe sepsis with septic shock; J44.0 Chronic obstructive pulmonary disease with (acute) lower respiratory infection; I12.0 Hypertensive chronic kidney disease with stage 5 chronic kidney disease or end stage renal disease; I24.89 Other forms of acute ischemic heart disease; E03.9 Hypothyroidism, unspecified; K21.9 Gastro-esophageal reflux disease without esophagitis; Y83.2 Surgical operation with anastomosis, bypass or graft as the cause of abnormal reaction of the patient, or of later complication, without mention of misadventure at the time of the procedure; D69.6 Thrombocytopenia, unspecified; M25.511 Pain in right shoulder; I44.1 Atrioventricular block, second degree; G89.29 Other chronic pain; L98.499 Non-pressure chronic ulcer of skin of other sites with unspecified severity; Z95.2 Presence of prosthetic heart valve; D63.1 Anemia in chronic kidney disease; Z99.2 Dependence on renal dialysis; Z20.822 Contact with and (suspected) exposure to COVID-19; Z79.82 Long term (current) use of aspirin; Z79.899 Other long term (current) drug therapy; Z79.890 Hormone replacement therapy
CPT/HCPCS: 36415; 71045; 74176; 80048; 80053; 80076; 80202; 82803; 82947; 83605; 83735; 84100; 84484; 85025; 85027; 86850; 86900; 86901; 86923; 87040; 87077; 87147; 87186; 87205; 87635; 90999; 92610; 93005; 93306; 97110; 97162; 99285; A4649; J0456; J0690; J0696; J0737; J1100; J1644; J1650; J2543; J2704; J2795; J3010; J3370; J3475; P9016; P9047; Q9957

== ENCOUNTER 2024-05-30 22:40 | Outpatient (BNV) | payer OTHER, SELFPAY | END 2024-06-02 07:00 | PROVIDERS: Admitting Provider Nurse Practitioner Family; Emergency Provider Emergency Medicine; Visit Provider Internal Medicine Cardiovascular Disease | DX: I35.0 Nonrheumatic aortic (valve) stenosis (principal); I36.1 Nonrheumatic tricuspid (valve) insufficiency; R93.1 Abnormal findings on diagnostic imaging of heart and coronary circulation | CPT/HCPCS: 93306 ==

== ENCOUNTER → 2024-05-30 22:40 | Outpatient (BNV) | payer OTHER, SELFPAY | PROVIDERS: Admitting Provider Nurse Practitioner Family; Emergency Provider Emergency Medicine; PCP Family Medicine; Visit Provider Surgery Vascular Surgery | DX: N18.6 End stage renal disease (principal) | CPT/HCPCS: 36832; 99024; 99222; 99232 ==

== ENCOUNTER → 2024-05-30 22:40 | Outpatient (BNV) | payer OTHER, SELFPAY | PROVIDERS: Admitting Provider Nurse Practitioner Family; Emergency Provider Emergency Medicine; Visit Provider Physician Assistant Medical | DX: R78.81 Bacteremia (principal); B95.61 Methicillin susceptible Staphylococcus aureus infection as the cause of diseases classified elsewhere; N18.6 End stage renal disease | CPT/HCPCS: 99232; 99239; 99499; G0180 ==

== ENCOUNTER → 2024-05-30 22:40 | Outpatient (BNV) | payer OTHER, SELFPAY | PROVIDERS: Admitting Provider Nurse Practitioner Family; Emergency Provider Emergency Medicine; Visit Provider Nurse Practitioner Family | DX: A41.9 Sepsis, unspecified organism (principal); I95.9 Hypotension, unspecified; J18.9 Pneumonia, unspecified organism; N18.5 Chronic kidney disease, stage 5; E83.42 Hypomagnesemia; D64.9 Anemia, unspecified | CPT/HCPCS: 99291 ==

== ENCOUNTER → 2024-05-30 22:40 | Outpatient (BNV) | payer OTHER, SELFPAY | PROVIDERS: Admitting Provider Nurse Practitioner Family; Emergency Provider Emergency Medicine; Visit Provider Internal Medicine | DX: N18.6 End stage renal disease (principal); R78.81 Bacteremia; B95.61 Methicillin susceptible Staphylococcus aureus infection as the cause of diseases classified elsewhere | CPT/HCPCS: 99222 ==

== ENCOUNTER → 2024-07-03 10:49 | Outpatient (REF) | payer OTHER, SELFPAY ==
--- NOTE | 2024-07-03 10:58 | HM_ITS ---
* Total monitoring time 2 days. * Underlying rhythm is sinus with an average rate of 72/Min. * Rare ventricular ectopy. * Mobitz type 1 second-degree AV block noted during daytime as well as night hours. One episode 2-1 block with ventricular rate of 34/Min. At 18:03. * No patient markers and diary not received. MTDD
== END ==
LOC: HO.CARD 10:49
PROVIDERS: PCP Family Medicine; Visit Provider Family Medicine
DX: I44.1 Atrioventricular block, second degree (principal)
CPT/HCPCS: 93225; 99212

== ENCOUNTER → 2024-07-03 10:58 | Outpatient (BNV) | payer OTHER, SELFPAY | PROVIDERS: PCP Family Medicine; Visit Provider Internal Medicine | DX: I44.1 Atrioventricular block, second degree (principal) | CPT/HCPCS: 93227 ==

== ENCOUNTER 2024-07-03 11:29 | Outpatient (AMB) | payer OTHER, SELFPAY ==
--- NOTE | 2024-07-03 11:30 | A.OFFVIS_ITS ---
Intake Visit Reasons: PCP wants follow up fistula ?infection/wound Intake Note: follow up fistula revision 06/07/24. Has a small opening over incision, PCP had called w/ concern due to bleeding from incision. Accompanied by: Son Allergies No Known Allergies Allergy (Mild, Verified 07/03/24 11:34) NONE HPI HPI PCP wants follow up fistula ?infection/wound: Details: Very pleasant 84-year-old gentleman presents for follow-up regarding fistula revision. This was done back on 06/07/2024. At that time he had an aneurysmal portion with overlying skin changes. This was subsequently plicated and the skin was closed over. Continues to have a small opening on that incision line but appears to be doing significantly better. In addition they are using the fistula for dialysis. Now presents for follow-up [facility] Medical History (Updated 07/04/24 @ 11:19 by Theodore Jose MD) ESRD (end stage renal disease) CKD (chronic kidney disease) stage 5, GFR less than 15 ml/min MSSA bacteremia Dialysis patient COVID-19 vaccine administered Renal failure COPD (chronic obstructive pulmonary disease) Thyroid disease GERD (gastroesophageal reflux disease) Elevated cholesterol PVD (peripheral vascular disease) Prostate CA HTN (hypertension) Heart attack Surgical History Hx of cataract surgery Hx of cystoscopy History of incision and drainage H/O colonoscopy Hx of aortic valve replacement Hx of CABG Social History Household Members: Family Household Members Other:: Lives with son.. Housing: House Are you a primary field care advocate to a significant other at home: No Do you presently have visiting nurse or other home services: No Alcohol intake: never Comment: Surgeon informed that all counts were correct Patient Tobacco Use Status: Never used Tobacco service: No Current occupational status: disabled Review of Systems Const All systems reviewed & are unremarkable except as noted in HPI and below Reports no additional complaints ENT Reports Normal hearing present Card Denies chest pain, Denies chest pain at rest, Denies chest pain with activity and Denies pedal edema Resp Denies cough GI Denies abdominal pain Musc Denies abnormal gait, Denies muscle cramps and Denies radiating pain into limb Skin/Breast Denies skin ulcer and Denies wounds Neuro Reports Normal hearing present and Denies abnormal gait Psych Reports no additional complaints Physical Exam Const General: cooperative, healthy appearing and comfortable Orientation/consciousness: oriented to person, oriented to place and oriented to time HEENT Head: Yes normal to inspection Neck Neck: Yes normal visual inspection Carotids: no bruits Chest Chest palpation & inspection: normal inspection of the chest Resp Effort & Inspection: normal respiratory effort and able to speak in complete sentences Auscultation: clear to auscultation bilaterally, no crackles, no rales, no rhonchi and no wheezes Cardio Rate: regular rate Rhythm: regular rhythm Heart sounds: S1 normal heart sound present and S2 normal heart sound present Bruits: no carotid bruits Peripheral pulses: Peripheral pulses 2+ throughout GI Inspection: Yes normal to inspection Skin Other: Left upper extremity fistula with good thrill and bruit. Incision line slow to heal though Wounds: no wounds Hair: normal Neuro General: oriented to person, oriented to place and oriented to time Cranial nerves: Yes CN's II-XII intact bilaterally and Yes Normal hearing present Cognition (Neuro): normal cognition Motor exam (neuro): 5/5 motor strength present throughout Extrem Other: venous exam: No significant superficial varicosities or spider telangiectasias, minimal edema General: No clubbing, No cyanosis and No edema Psych Appearance: grossly normal Mental Status: mental status grossly normal Speech and movement: Normal speech and movement present Assessment & Plan Assessment & Plan (1) ESRD (end stage renal disease): Code(s): N18.6 - End stage renal disease Category: Medical Plan: In short patient is doing well on hemodialysis. Fistula is functioning appropriately. I do believe that the incision line is slow to heal but will heal eventually. Would puncture away from this area. Stable for use no follow- up required. Coding Level of Care Code Est Pt Level 3 (93060) Diagnoses ESRD (end stage renal disease) N18.6
== END 2024-07-03 11:43 | disposition home or self-care (01) ==
PROVIDERS: PCP Family Medicine; Visit Provider Surgery Vascular Surgery
DX: N18.6 End stage renal disease (principal)
CPT/HCPCS: 99024

== ENCOUNTER 2024-08-06 16:20 | Emergency (ER) | payer OTHER, SELFPAY ==
[2024-08-06 16:30] VITALS: BP 158/77; PULSE 87; O2SAT 94
[2024-08-06 16:40] VITALS: BP 139/77; PULSE 82; RESP 16; O2SAT 94; BMI 28.4
[2024-08-06] MEDS: Acetaminophen 325 MG TABLET 650 MG PO (17:52)
[2024-08-06 18:17] VITALS: BP 149/78; PULSE 80; RESP 16; O2SAT 96
--- NOTE | 2024-08-06 18:43 | ED_ITS ---
HPI - General Adult General Chief complaint: Extremity Problem Stated complaint: bleeding from fistula, clamped and controlled Time Seen by Provider: 08/06/24 18:02 Source: patient Mode of arrival: ambulatory Limitations: no limitations History of Present Illness ED Provider: velia CAMEJO narrative: Patient's dialysis with AV fistula in the left forearm comes here as patient with oozing from the dialysis puncture site >1 hr after dialysis patient came here with a clamp not major bleeding at this time Related Data Home Medications ?Medication ?Instructions ?Recorded ?Confirmed allopurinol 100 mg tablet 100 mg PO DAILY 12/30/20 05/31/24 aspirin 81 mg tablet,delayed 81 mg PO DAILY 12/30/20 05/31/24 release atorvastatin 80 mg tablet 80 mg PO BEDTIME 12/30/20 05/31/24 cholecalciferol (vitamin D3) 25 25 mcg PO DAILY 12/30/20 05/31/24 mcg (1,000 unit) capsule (Vitamin D3) levothyroxine 50 mcg tablet 50 mcg PO DAILY@0600 12/30/20 05/31/24 omeprazole 20 mg capsule,delayed 20 mg PO DAILY@0630 12/30/20 06/01/24 release cyanocobalamin (vitamin B-12) 1,000 mcg PO DAILY 06/10/23 05/31/24 1,000 mcg tablet cyclosporine 0.05 % eye drops 1 drp ophthalmic (eye) BID 06/10/23 05/31/24 (Restasis MultiDose) cyclosporine 0.05 % eye drops in a drp ophthalmic (eye) 07/03/24 dropperette tramadol 50 mg tablet 50 mg PO DAILY PRN 07/03/24 Previous Rx's ?Medication ?Instructions ?Recorded folic acid 1 mg tablet 1 mg PO DAILY #30 tabs 01/16/21 cefazolin 2 gram/50 mL in dextrose 50 ml IV MoWeFr@1800 #12 ea 06/08/24 (iso-osmotic) intravenous piggyback Allergies Allergy/AdvReac Type Severity Reaction Status Date / Time No Known Allergies Allergy Mild NONE Verified 08/06/24 16:42 Review of Systems Review of Systems: Yes all other systems are reviewed and are negative PMFSH Past Medical History Medical History ESRD (end stage renal disease) CKD (chronic kidney disease) stage 5, GFR less than 15 ml/min MSSA bacteremia Dialysis patient COVID-19 vaccine administered Renal failure COPD (chronic obstructive pulmonary disease) Thyroid disease GERD (gastroesophageal reflux disease) Elevated cholesterol PVD (peripheral vascular disease) Prostate CA HTN (hypertension) Heart attack Surgical History Hx of cataract surgery Hx of cystoscopy History of incision and drainage H/O colonoscopy Hx of aortic valve replacement Hx of CABG Social History Social History Household Members: Family Household Members Other:: Lives with son.. Housing: House Are you a primary long term care social worker to a significant other at home: No Do you presently have visiting nurse or other home services: No Alcohol intake: never Comment: Surgeon informed that all counts were correct Patient Tobacco Use Status: Never used Tobacco Smoked in Last 30 Days: No Use of substances other than those prescribed or required for medical reasons: No Advance Directives: No Advance Directives Information Provided: No Do you have a plan to hurt others: No Plan service: No Current occupational status: disabled Physical Exam ED Vital Signs: Vital Signs - 24 hr 08/06/24 16:40 08/06/24 18:17 Pulse Rate 82 80 Respiratory Rate 16 16 Blood Pressure 139/77 149/78 H Pulse Oximetry 94 96 Oxygen Delivery Method Room Air Room Air BMI result Body Mass Index 28.4 Appearance: Alert. Oriented X3. No acute distress. ENT: Pharynx normal. Oral Mucosa moist Neck: Normal inspection. Neck supple. CVS: Normal heart rate and rhythm. Pulses normal. Respiratory: No respiratory distress. Equal air entry bilateral, no wheezing/rales/rhonchi Skin: Skin warm and dry. Normal skin color. Normal skin turgor. Extremities: No lower extremity edema. Left forearm AV fistula minor oozing from the puncture site Neuro: Oriented X 3. Medications Administered Discontinued Medications Generic Name Dose Route Start Last Admin Trade Name Freq PRN Reason Stop Dose Admin Acetaminophen 650 mg 08/06/24 17:44 08/06/24 17:52 Acetaminophen 325 Mg Tablet PO 08/06/24 17:45 650 mg ONCE ONE Administration Medical Decision Making Medical Decision Making [facility] Narrative: Patient with minor oozing from AV fistula site of the left forearm clamp was applied when she came during stay bleeding stopped vitals are stable will discharge patient home Discharge Plan Discharge Clinical Impression: Hemorrhage from wound Patient Disposition: Home, Self-Care Instructions: Acute Wounds (ED) Additional Instructions: Local Care as advised Prescriptions: No Action atorvastatin 80 mg tablet 80 mg PO BEDTIME allopurinol 100 mg tablet 100 mg PO DAILY aspirin 81 mg tablet,delayed release (DR/EC) 81 mg PO DAILY levothyroxine 50 mcg tablet 50 mcg PO DAILY@0600 omeprazole 20 mg capsule,delayed release(DR/EC) 20 mg PO DAILY@0630 cholecalciferol (vitamin D3) [Vitamin D3] 25 mcg (1,000 unit) Capsule 25 mcg PO DAILY folic acid 1 mg tablet 1 mg PO DAILY Qty: 30 0RF cefazolin in dextrose (iso-os) 2 gram/50 mL Piggyback 50 ml IV MoWeFr@1800 Qty: 12 0RF Rx Instructions: To be given after dialysis cyclosporine 0.05 % dropperette ophthalmic (eye) tramadol 50 mg tablet 50 mg PO DAILY PRN cyanocobalamin (vitamin B-12) 1,000 mcg tablet 1,000 mcg PO DAILY Restasis MultiDose 0.05 % drops 1 drp ophthalmic (eye) BID Print Language: Niuean
[2024-08-06 19:09] VITALS: BP 149/78; PULSE 80; RESP 16; TEMP 36.7; O2SAT 96
== END 2024-08-06 19:11 | disposition home or self-care (01) ==
PROVIDERS: Emergency Provider Internal Medicine; PCP Family Medicine
DX: T82.838A Hemorrhage due to vascular prosthetic devices, implants and grafts, initial encounter (principal); Y73.8 Miscellaneous gastroenterology and urology devices associated with adverse incidents, not elsewhere classified; Y92.9 Unspecified place or not applicable; I12.0 Hypertensive chronic kidney disease with stage 5 chronic kidney disease or end stage renal disease; N18.6 End stage renal disease; Z99.2 Dependence on renal dialysis
CPT/HCPCS: 99283; 99284

== ENCOUNTER 2024-08-16 15:48 | Outpatient (REF) | payer OTHER, SELFPAY ==
--- NOTE | ~2024-08-16 | XR_ITS ---
EXAMINATION: XR FOOT, RIGHT CLINICAL INFORMATION: Right foot wound. Diabetes. Third toe nonhealing wound. COMPARISON: Right foot radiographs dated 07/03/2010. TECHNIQUE: AP and lateral views of the right foot. FINDINGS: Soft tissue swelling at the third toe. No radiopaque foreign body or abnormal soft tissue calcification. No periosteal reaction or cortical erosion. Joint space narrowing with marginal osteophytes at the first metatarsophalangeal joint and hallux sesamoids. Plantar calcaneal spur. No acute fracture or dislocation. XR/XR foot RT 2V IMPRESSION: Soft tissue swelling at the third toe without radiopaque foreign body or abnormal soft tissue calcification. No periosteal reaction or cortical erosion to suggest acute osteomyelitis. Early osteomyelitis may be occult on plain radiographs and if there is clinical concern, MRI without and with contrast could help further evaluate. Electronically signed by: Lamont Avina MD 08/17/2024 10:22 AM LYNDSAY
== END 2024-08-16 15:49 | disposition home or self-care (01) ==
LOC: HO.HHCX 15:48
PROVIDERS: Visit Provider Nurse Practitioner Primary Care
DX: S91.301A Unspecified open wound, right foot, initial encounter (principal)
CPT/HCPCS: 73620

== ENCOUNTER 2024-08-20 15:36 | Emergency (ER) | payer OTHER, SELFPAY ==
[2024-08-20 15:46] VITALS: BP 139/78; PULSE 78; RESP 18; O2SAT 95
--- NOTE | 2024-08-20 16:35 | ED.GENADULT ---
HPI - General Adult General Stated complaint: BLEEDING FROM ACCESS PORT FROM DIALYSIS Time Seen by Provider: 08/20/24 16:09 Source: patient and EMS Mode of arrival: EMS Limitations: other History of Present Illness ED Provider: Dr. Breana Keita HPI narrative: Patient comes to the emergency room via ambulance. Patient coming from dialysis. Patient had dialysis done today. When they removed the needle from the shunt, they were concerned that there was a large amount of bleeding from the left arm and patient was sent to the emergency room. Patient has no complaints Related Data Home Medications ?Medication ?Instructions ?Recorded ?Confirmed allopurinol 100 mg tablet 100 mg PO DAILY 12/30/20 05/31/24 aspirin 81 mg tablet,delayed 81 mg PO DAILY 12/30/20 05/31/24 release atorvastatin 80 mg tablet 80 mg PO BEDTIME 12/30/20 05/31/24 cholecalciferol (vitamin D3) 25 25 mcg PO DAILY 12/30/20 05/31/24 mcg (1,000 unit) capsule (Vitamin D3) levothyroxine 50 mcg tablet 50 mcg PO DAILY@0600 12/30/20 05/31/24 omeprazole 20 mg capsule,delayed 20 mg PO DAILY@0630 12/30/20 06/01/24 release cyanocobalamin (vitamin B-12) 1,000 mcg PO DAILY 06/10/23 05/31/24 1,000 mcg tablet cyclosporine 0.05 % eye drops 1 drp ophthalmic (eye) BID 06/10/23 05/31/24 (Restasis MultiDose) cyclosporine 0.05 % eye drops in a drp ophthalmic (eye) 07/03/24 dropperette tramadol 50 mg tablet 50 mg PO DAILY PRN 07/03/24 Previous Rx's ?Medication ?Instructions ?Recorded folic acid 1 mg tablet 1 mg PO DAILY #30 tabs 01/16/21 cefazolin 2 gram/50 mL in dextrose 50 ml IV MoWeFr@1800 #12 ea 06/08/24 (iso-osmotic) intravenous piggyback Allergies Allergy/AdvReac Type Severity Reaction Status Date / Time No Known Allergies Allergy Mild NONE Verified 08/06/24 16:42 Review of Systems Review of Systems: Constitutional : No Weight loss, No Fever, No Chills, No Night Sweats, No Fatigue, No Malaise ENT/Mouth : No Hearing loss, No Ear Pain, No Nasal Congestion, No Sinus Pain, No Hoarseness, No sore throat, No Rhinorrhea, No Swallowing Difficulty Eyes: No Eye Pain, No Swelling, No Redness, No Foreign Body, No Discharge, No Vision Changes Cardiovascular : No Chest Pain, No SOB, No Dyspnea on Exertion, No Orthopnea, No Edema, No Palpitations Respiratory : No Cough, No Sputum, No Wheezing, No Smoke Exposure, No Dyspnea Gastrointestinal : No Nausea, No Vomiting, No Diarrhea, No Constipation, No abdominal Pain, No Hematochezia, No Melena Genitourinary : no irregular bleeding, No Dysuria, No Urinary Frequency, No Hematuria, No Urinary Incontinence, No Urgency, No Flank Pain, No Urinary Flow Changes, No Hesitancy Musculoskeletal : No joint pain, No Myalgias, No Joint Swelling Skin : Bleeding from fistula on the left arm, No Skin Lesions, No rash Neuro : No Weakness, No Numbness, No Paresthesias, No Loss of Consciousness, No Dizziness, No Headache Psych : No Anxiety/Panic, No Depression, No SI/HI/AH/VH, No Social Issues, Heme/Lymph: No Bruising, No Bleeding,No Lymphadenopathy Endocrine : No Polyuria, No Polydipsia, No Temperature Intolerance PMFSH Past Medical History Medical History ESRD (end stage renal disease) CKD (chronic kidney disease) stage 5, GFR less than 15 ml/min MSSA bacteremia Dialysis patient COVID-19 vaccine administered Renal failure COPD (chronic obstructive pulmonary disease) Thyroid disease GERD (gastroesophageal reflux disease) Elevated cholesterol PVD (peripheral vascular disease) Prostate CA HTN (hypertension) Heart attack Surgical History Hx of cataract surgery Hx of cystoscopy History of incision and drainage H/O colonoscopy Hx of aortic valve replacement Hx of CABG Social History Social History Household Members: Family Household Members Other:: Lives with son.. Housing: House Are you a primary managed care liaison to a significant other at home: No Do you presently have visiting nurse or other home services: No Alcohol intake: never Comment: Surgeon informed that all counts were correct Patient Tobacco Use Status: Never used Tobacco service: No Current occupational status: disabled Physical Exam ED Const Other: Appearance: Alert. Oriented X3. No acute distress. Eyes: Pupils equal, round and reactive to light. ENT: Pharynx normal. Neck: Normal inspection. Neck supple. No lymph nodes noted. No crepitus CVS: Normal heart rate and rhythm. Pulses normal. Normal S1 and S2 Respiratory: No respiratory distress. Breath sounds normal. No Wheezing. No rales Abdomen: Soft and nontender. No rigidity. No distention. Skin: Skin warm and dry. Normal skin color. Normal skin turgor. Extremities: No lower extremity edema. No Lacerations. No Rash Neuro: Oriented X 3. No motor deficit. No sensory deficit. Moving all extremities. No slurred speech. CN 2 through 12 grossly intact Psych: calm, cooperative, normal affect Medical Decision Making Medical Decision Making MDM Narrative: By the time the patient arrived to emergency room, patient had no bleeding at all from the arm at the puncture site. Patient's arm was cleaned and dressed. -I spoke with the patient's son. According to the patient's son the patient has been acting strange. I discussed with the patient that we can not do some lab work and make sure that all the electrolytes are in order. Patient's son states that he prefers to take his father home and if he does not improve or if he worsens, he will bring him back. At this time, he declined any further labs or interventions. Patient is alert, talking to us, knows that he is here because his left arm was bleeding after the dialysis needle was pulled out. Has no complaints, Discharge Plan Discharge Clinical Impression: Bleeding from wound Patient Disposition: Home, Self-Care Instructions: Acute Wounds (ED) Additional Instructions: Please follow-up with your primary care physician tomorrow. If you have any worsening or new symptoms, please return to the emergency room or call 911 Prescriptions: No Action atorvastatin 80 mg tablet 80 mg PO BEDTIME allopurinol 100 mg tablet 100 mg PO DAILY aspirin 81 mg tablet,delayed release (DR/EC) 81 mg PO DAILY levothyroxine 50 mcg tablet 50 mcg PO DAILY@0600 omeprazole 20 mg capsule,delayed release(DR/EC) 20 mg PO DAILY@0630 cholecalciferol (vitamin D3) [Vitamin D3] 25 mcg (1,000 unit) Capsule 25 mcg PO DAILY folic acid 1 mg tablet 1 mg PO DAILY Qty: 30 0RF cefazolin in dextrose (iso-os) 2 gram/50 mL Piggyback 50 ml IV MoWeFr@1800 Qty: 12 0RF Rx Instructions: To be given after dialysis cyclosporine 0.05 % dropperette ophthalmic (eye) tramadol 50 mg tablet 50 mg PO DAILY PRN cyanocobalamin (vitamin B-12) 1,000 mcg tablet 1,000 mcg PO DAILY Restasis MultiDose 0.05 % drops 1 drp ophthalmic (eye) BID Print Language: Luxembourgish
[2024-08-20 16:59] VITALS: BP 140/92; PULSE 78; O2SAT 94
[2024-08-20 17:19] VITALS: BP 139/78; PULSE 78; RESP 18; TEMP 36.6; O2SAT 95; BMI 24.4
[2024-08-20 17:41] VITALS: BP 139/78; PULSE 78; RESP 18; TEMP 36.6; O2SAT 95
== END 2024-08-20 17:41 | disposition home or self-care (01) ==
LOC: HO.ED 17:24
PROVIDERS: Emergency Provider Emergency Medicine; PCP Family Medicine
DX: R23.3 Spontaneous ecchymoses (principal); Z79.899 Other long term (current) drug therapy
CPT/HCPCS: 99282

== ENCOUNTER 2024-08-25 09:09 | Inpatient (IN) | payer OTHER, SELFPAY ==
[2024-08-25] VITALS (8 sets, daily range): BP systolic 119–169; BP diastolic 53–84; PULSE 68–86; RESP 16–20; TEMP 36.3–37; O2SAT 92–97; BMI 25.3
--- NOTE | ~2024-08-25 | XR_ITS ---
EXAMINATION: XR CHEST CLINICAL INFORMATION: Weakness COMPARISON: 05/30/2024 TECHNIQUE: Frontal view of the chest was obtained. FINDINGS: Stable prominence of the superior mediastinal silhouette. Evidence of previous cardiac surgery. Chronic blunting of the left costophrenic angle similar. Volume loss left hemithorax appears similar. Right lung clear. No acute findings seen. XR/XR chest 1V IMPRESSION: Chronic changes as above. No acute superimposed process. Electronically signed by: David Sebastian MD 08/25/2024 10:40 AM L[facility]
--- NOTE | ~2024-08-25 | MR_ITS ---
EXAMINATION: MR BRAIN WITHOUT CONTRAST CLINICAL INFORMATION: Confusion, dysarthria,? CVA COMPARISON: None available. TECHNIQUE: MRI of the brain was obtained using routine sequences without contrast. FINDINGS: Motion artifact is present. No acute intracranial hemorrhage or infarct. Scattered and confluent periventricular and deep white matter T2/FLAIR hyperintensities, nonspecific however commonly seen with small vessel ischemic disease. Several foci of susceptibility artifact involving the left frontal, bilateral temporal, right occipital, and right cerebellum may reflect chronic microhemorrhages. Diffuse prominence of the sulci with associated ex vacuo dilation of the ventricles compatible with global cerebral atrophy. Probable arachnoid cyst along the right parietal lobe. No midline shift or hydrocephalus. No acute extra-axial fluid collections. The osseous structures are unremarkable. The pituitary gland, pineal gland and remaining midline structures are unremarkable. Sequela of bilateral lens replacement. Otherwise, no acute orbital pathology. Mild mucosal thickening of the paranasal sinuses. Left mastoid effusion. MR/MR head/brain wo con IMPRESSION: 1. No acute intracranial abnormalities. 2. Global cerebral volume loss and chronic microangiopathy. Electronically signed by: Suzette Mcgovern MD 08/25/2024 03:13 PM [facility]
--- NOTE | ~2024-08-25 | CT_ITS ---
EXAMINATION: CT HEAD WITHOUT CONTRAST CLINICAL INFORMATION: Confusion. Slurred speech. COMPARISON: None available. TECHNIQUE: Contiguous axial imaging was performed from the skull base to vertex without intravenous administration of contrast. This CT examination was performed using dose optimization techniques as appropriate, variously including the following: *Automated exposure control *Adjustment of mA and/or kV according to patient size (this includes techniques or standardized protocols for targeted exams where dose is matched to indication/reason for exam; i.e. extremities or head) *Use of iterative reconstruction technique DLP: 646 mGy-cm FINDINGS: The ventricles and sulci are enlarged consistent with diffuse atrophy. Asymmetric prominence of the extra-axial space along the right parietal lobe measuring up to 1.2 cm which may represent a subdural hygroma. No hyperdensity or evidence of acute hemorrhage. No visualized masses or midline shift are seen. There is no intra-axial or extra-axial hemorrhage. Decreased attenuation is seen in the periventricular white matter compatible with chronic small-vessel ischemic disease. The dsouza-white discrimination is preserved. The included paranasal sinuses and mastoid air cells are well aerated. The calvarium is intact. CT/CT head/brain wo IV con IMPRESSION: No intracranial hemorrhage or mass effect. Generalized atrophy and chronic small vessel white matter ischemic changes. IMPRESSION: No intracranial hemorrhage or mass effect. Generalized atrophy and chronic small-vessel white matter ischemic changes. Asymmetric prominence of the extra-axial space along the right parietal lobe which may represent a subdural hygroma. Electronically signed by: Lamont Avina MD 08/25/2024 11:00 AM [facility] [place]
--- NOTE | 2024-08-25 09:27 | ECG_ITS ---
Test Reason : WEAKNESS Blood Pressure : / mmHG Vent. Rate : 072 BPM Atrial Rate : 072 BPM P-R Int : 228 ms QRS Dur : 106 ms QT Int : 414 ms P-R-T Axes : 037 066 068 degrees QTc Int : 453 ms Sinus rhythm with 1st degree A-V block Otherwise normal ECG When compared with ECG of 08-JUN-2024 09:24, Sinus rhythm is no longer with 2nd degree SA block (Mobitz I) Referred By: Angie Ordaz Electronically Signed By:Alonzo Quintana
--- NOTE | 2024-08-25 09:28 | ED.GIBLEED ---
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 Son then noted he has been awake since last night with dark stool x 4 and was hallucinating and talking to people who weren't there. The patient has no complaints. Son notes he was at some ER which was ours on 08/20 for L arm fistula bleeding but no bleeding was noted on arrival. Patient is covered in bruises but denies trauma. He states he feels fine and is laughing. MD complaint: melena Onset (ago): day(s) (since 2am) Severity: moderate Relieving factors: none Exacerbating factors: none Context: other (recent confusion) Associated symptoms: easy bruising and other (slurred speech, cannot write his name) Treatments Prior to Arrival: none Related Data Home Medications ?Medication ?Instructions ?Recorded ?Confirmed allopurinol 100 mg tablet 100 mg PO DAILY 12/30/20 05/31/24 aspirin 81 mg tablet,delayed 81 mg PO DAILY 12/30/20 05/31/24 release atorvastatin 80 mg tablet 80 mg PO BEDTIME 12/30/20 05/31/24 cholecalciferol (vitamin D3) 25 25 mcg PO DAILY 12/30/20 05/31/24 mcg (1,000 unit) capsule (Vitamin D3) levothyroxine 50 mcg tablet 50 mcg PO DAILY@0600 12/30/20 05/31/24 omeprazole 20 mg capsule,delayed 20 mg PO DAILY@0630 12/30/20 06/01/24 release cyanocobalamin (vitamin B-12) 1,000 mcg PO DAILY 06/10/23 05/31/24 1,000 mcg tablet cyclosporine 0.05 % eye drops 1 drp ophthalmic (eye) BID 06/10/23 05/31/24 (Restasis MultiDose) cyclosporine 0.05 % eye drops in a drp ophthalmic (eye) 07/03/24 dropperette tramadol 50 mg tablet 50 mg PO DAILY PRN 07/03/24 Previous Rx's ?Medication ?Instructions ?Recorded folic acid 1 mg tablet 1 mg PO DAILY #30 tabs 01/16/21 cefazolin 2 gram/50 mL in dextrose 50 ml IV MoWeFr@1800 #12 ea 06/08/24 (iso-osmotic) intravenous piggyback Allergies Allergy/AdvReac Type Severity Reaction Status Date / Time No Known Allergies Allergy Mild NONE Verified 08/25/24 09:32 Review of Systems Review of Systems: ROS unable to be obtained due to altered mental status [facility] Past Medical History Attestation statement: The following information was validated with the patient. Source: old records reviewed Medical History ESRD (end stage renal disease) CKD (chronic kidney disease) stage 5, GFR less than 15 ml/min MSSA bacteremia Dialysis patient COVID-19 vaccine administered Renal failure COPD (chronic obstructive pulmonary disease) Thyroid disease GERD (gastroesophageal reflux disease) Elevated cholesterol PVD (peripheral vascular disease) Prostate CA HTN (hypertension) Heart attack Surgical History Hx of cataract surgery Hx of cystoscopy History of incision and drainage H/O colonoscopy Hx of aortic valve replacement Hx of CABG Social History Social History Household Members: Family Household Members Other:: Lives with son.. Housing: House Are you a primary acute care certified nursing assistant to a significant other at home: No Do you presently have visiting nurse or other home services: No Alcohol intake: never Comment: Surgeon informed that all counts were correct Patient Tobacco Use Status: Never used Tobacco Smoked in Last 30 Days: No Use of substances other than those prescribed or required for medical reasons: No Advance Directives: No Advance Directives Information Provided: Yes Do you have a plan to hurt others: No Plan service: No Current occupational status: disabled Physical Exam Vital Signs: Vital Signs: Last Vital Signs Temp 98.6 F 08/25/24 09:29 Pulse 76 08/25/24 09:36 Resp 20 08/25/24 09:29 BP 128/53 L 08/25/24 09:29 Pulse Ox 93 08/25/24 09:29 O2 Del Method Room Air 08/25/24 09:29 BMI result Body Mass Index 25.3 Appearance: Alert. Oriented to hospital, president knows it is August but 1923. No acute distress. Eyes: Pupils equal, round and reactive to light. ENT: Pharynx normal. no bruising to the head Neck: Normal inspection. Neck supple. CVS: Normal heart rate and rhythm. Pulses normal. Respiratory: No respiratory distress. Breath sounds normal. Abdomen: Soft and nontender. Rectal: dark brown stool noted on digit Skin: Skin warm and dry. Normal skin color. Normal skin turgor. Extremities: No lower extremity edema. bruising to R upper shoulder no pain, L AVF but thrill noted some swelling no signs of infection, pulses intact on that side, R upper thigh bruise noted Neuro: Oriented X 2. R hand seems more weak to grasp, slurred speech, laughing at times Medications Administered Discontinued Medications Generic Name Dose Route Start Last Admin Trade Name Freq PRN Reason Stop Dose Admin Pantoprazole Sodium 40 mg 08/25/24 09:35 08/25/24 09:54 Pantoprazole Sodium 40 Mg/10 Ml Vial IVPUSH 08/25/24 09:36 40 mg ONCE ONE Administration Medical Decision Making Medical Decision Making [facility] Narrative: 84 yo male with PMH of ESRD on HD MWF last dialyzed yesterday, MSSA bacteremia, anemia, uremia, dysphagia, prior CVA, HLD, aspirin, hypothyroidism here with c/o slurred speech x 2 days, cannot write with his R hand x 5 days, weakness, hallucinations since 2am and black stool x 4 since 2am. The patient is covered in bruises denies fall. At this time basic labs, metabolic and toxic work up, CT scan for ICH/stroke, UA, CXR - occult stool and type and screen Differential Diagnosis Differential Diagnoses: The differential diagnosis associated with the presentation includes metabolic/toxic encephalopathy, ICH, stroke, uremia, GI bleed Admission/Observation Consideration of admission/observation: Escalation of care including admission/observation considered admit given guiac positive stools and new neuro complaints Consult Healthcare Provider Management of the patient was discussed with: Hospitalist (will admit) Lab Data [facility] Lab Attestation statement: I reviewed the patient's lab results. 11/16/24 09:50 08/25/24 09:50 Labs: Lab Results 08/25/24 08/25/24 08/25/24 Range/Units 09:49 09:50 10:14 WBC 6.4 (4.8-10.8) X10*3/uL RBC 2.88 L (4.60-5.80) X10*6/uL Hgb 7.8 L (14.0-18.0) g/dl Hct 26.1 L (42.0-52.0) % MCV 90.6 (80.0-98.0) fL MCH 27.1 (27.0-33.0) pg MCHC 29.9 L (31.0-36.0) g/dl RDW 19.3 H (11.0-16.0) % Plt Count 143 L D (160-400) X10*3/uL MPV 11.8 (9.4-12.4) fL Immature Gran % (Auto) 0.3 (0.0-0.4) % Neut % (Auto) 60.4 (45-73) % Lymph % (Auto) 28.1 (20-40) % [place] % (Auto) 8.9 (2-11) % Eos % (Auto) 1.7 (0-4) % Baso % (Auto) 0.6 (0-2) % Lymph # (Auto) 1.8 (1.2-4.9) X10*3/uL [place] # (Auto) 0.6 (0.1-1.2) X10*3/uL Eos # (Auto) 0.1 (0.0-0.4) X10*3/uL Baso # (Auto) 0.0 (0.0-0.2) X10*3/uL Abs Immat Gran (auto) 0.02 (0.00-0.03) X10*3/uL Absolute Neuts (auto) 3.8 (2.0-8.3) x10*3/uL Absolute Nucleated RBC 0.030 H (0.0-0.012) X10*3/uL Nucleated RBC % (auto) 0.5 H (0.0-0.2) /100WBC PT 12.9 H (10.9-12.4) SEC INR 1.1 (0.9-1.1) APTT 28.1 (26.0-36.8) SEC VBG pH (7.32-7.43) VBG pCO2 mmHg VBG pO2 mmHg VBG HCO3 (22-26) mmol/L VBG Base Excess mmol/L Sodium 143 (135-145) mmol/L Potassium 3.9 (3.3-5.1) mmol/L Chloride 101 (96-108) mmol/L Carbon Dioxide 28 (22-29) mmol/L Anion Gap 18 (12-20) BUN 32 H (9-16) mg/dL Creatinine 4.48 H* (0.5-1.4) mg/dL Estim Creat Clear Calc 11.6 Estimated GFR 13 Random Glucose 126 H (60-115) mg/dL Calcium 10.5 H D (8.4-10.2) mg/dL Magnesium 1.8 (1.6-2.6) mg/dL Total Bilirubin 0.7 (0.0-1.0) mg/dL Direct Bilirubin 0.2 (0.0-0.5) mg/dL AST 35 (5-37) U/L ALT 11 (0-40) U/L Ammonia 37 (13-55) umol/L Troponin I High Sens 27.0 D (<3.5-35.0) ng/L C-Reactive Protein 6.06 H (< or = 0.50) mg/dL Total Protein 6.4 L (6.5-8.0) g/dL Albumin 3.3 L (3.5-5.0) g/dL Stool Occult Blood POSITIVE (NEGATIVE) Influenza Type A (PCR) NEGATIVE (Negative) Influenza Type B (PCR) NEGATIVE (Negative) RSV RNA Qual (PCR) NEGATIVE (Negative) SARS-CoV-2 RNA (RT-PCR) NEGATIVE (Negative) Blood Type A Positive Antibody Screen NEGATIVE 08/25/24 Range/Units 10:21 WBC (4.8-10.8) X10*3/uL RBC (4.60-5.80) X10*6/uL Hgb (14.0-18.0) g/dl Hct (42.0-52.0) % MCV (80.0-98.0) fL MCH (27.0-33.0) pg MCHC (31.0-36.0) g/dl RDW (11.0-16.0) % Plt Count (160-400) X10*3/uL MPV (9.4-12.4) fL Immature Gran % (Auto) (0.0-0.4) % Neut % (Auto) (45-73) % Lymph % (Auto) (20-40) % [place] % (Auto) (2-11) % Eos % (Auto) (0-4) % Baso % (Auto) (0-2) % Lymph # (Auto) (1.2-4.9) X10*3/uL [place] # (Auto) (0.1-1.2) X10*3/uL Eos # (Auto) (0.0-0.4) X10*3/uL Baso # (Auto) (0.0-0.2) X10*3/uL Abs Immat Gran (auto) (0.00-0.03) X10*3/uL Absolute Neuts (auto) (2.0-8.3) x10*3/uL Absolute Nucleated RBC (0.0-0.012) X10*3/uL Nucleated RBC % (auto) (0.0-0.2) /100WBC PT (10.9-12.4) SEC INR (0.9-1.1) APTT (26.0-36.8) SEC VBG pH 7.45 H (7.32-7.43) VBG pCO2 55 mmHg VBG pO2 73 mmHg VBG HCO3 39 H (22-26) mmol/L VBG Base Excess 13.7 mmol/L Sodium (135-145) mmol/L Potassium (3.3-5.1) mmol/L Chloride (96-108) mmol/L Carbon Dioxide (22-29) mmol/L Anion Gap (12-20) BUN (9-16) mg/dL Creatinine (0.5-1.4) mg/dL Estim Creat Clear Calc Estimated GFR Random Glucose (60-115) mg/dL Calcium (8.4-10.2) mg/dL Magnesium (1.6-2.6) mg/dL Total Bilirubin (0.0-1.0) mg/dL Direct Bilirubin (0.0-0.5) mg/dL AST (5-37) U/L ALT (0-40) U/L Ammonia (13-55) umol/L Troponin I High Sens (<3.5-35.0) ng/L C-Reactive Protein (< or = 0.50) mg/dL Total Protein (6.5-8.0) g/dL Albumin (3.5-5.0) g/dL Stool Occult Blood (NEGATIVE) Influenza Type A (PCR) (Negative) Influenza Type B (PCR) (Negative) RSV RNA Qual (PCR) (Negative) SARS-CoV-2 RNA (RT-PCR) (Negative) Blood Type Antibody Screen Independent Interpretation I performed an independent interpretation of an: EKG, Plain X-Ray (no pneumonia) and CT Scan (no ICH) Interpretation: Rate: 72 Rhythm: [place]: normal Normal P waves. Normal LUZ. Normal QRS complex. ST T wave : t wave inversion aVL, no TE, sig artifact noted qTC: 453 prior studies: no change The study has been interpreted contemporaneously by me. . Radiology Impression Discussion of test interpretation with radiology: I have reviewed the radiologist's reading. Independent Historian Clinical information obtained from an independent historian. History obtained from or confirmed by: EMS and Other (son) External Record Review External record reviewed: Inpatient record and Outpatient record Discharge Plan Discharge Clinical Impression: Melena, Encephalopathy acute, Dysarthria Patient Disposition: Admitted As Inpatient Prescriptions: No Action atorvastatin 80 mg tablet 80 mg PO BEDTIME allopurinol 100 mg tablet 100 mg PO DAILY aspirin 81 mg tablet,delayed release (DR/EC) 81 mg PO DAILY levothyroxine 50 mcg tablet 50 mcg PO DAILY@0600 omeprazole 20 mg capsule,delayed release(DR/EC) 20 mg PO DAILY@0630 cholecalciferol (vitamin D3) [Vitamin D3] 25 mcg (1,000 unit) Capsule 25 mcg PO DAILY folic acid 1 mg tablet 1 mg PO DAILY Qty: 30 0RF cefazolin in dextrose (iso-os) 2 gram/50 mL Piggyback 50 ml IV MoWeFr@1800 Qty: 12 0RF Rx Instructions: To be given after dialysis cyclosporine 0.05 % dropperette ophthalmic (eye) tramadol 50 mg tablet 50 mg PO DAILY PRN cyanocobalamin (vitamin B-12) 1,000 mcg tablet 1,000 mcg PO DAILY Restasis MultiDose 0.05 % drops 1 drp ophthalmic (eye) BID Print Language: Qatari
--- NOTE | 2024-08-25 09:35 | PC.NURSE ---
pt coming from home for increased AMS for the last 2-5 days, pt typically is alert but some confusion at baseline per son, but last night was having visual hallucinations, slurred speech for the last 5 days, general weak and son reports having dark stool at home, pt does go to dialysis M,W, F had his dialysis on Tuesday, son also reports pt being hospitalized recently but did not know where because the pt's fistula was bleeding, bruising noticed on the left arm fistula, also old bruising noticed on the right shoulder
[2024-08-25] MEDS: Pantoprazole Sodium 40 MG/10 ML VIAL IVPUSH ×2 (09:54→17:13)
[2024-08-25 09:56] LABS: MANUAL DIFF FLAG NO
[2024-08-25 09:58] LABS: OBS Int Ctl Valid YES; OBS1 POSITIVE (NEGATIVE)
[2024-08-25 10:04] LABS: INTERNATIONAL NORM RATIO 1.1 (0.9-1.1); Prothrombin Time 12.9 SEC (10.9-12.4)
[2024-08-25 10:05] LABS: Basophils Percent Auto 0.6 % (0-2); Eosinophils Absolute Auto 0.1 X10*3/uL (0.0-0.4); Eosinophils Percent Auto 1.7 % (0-4); Hematocrit 26.1 % (42.0-52.0); Hemoglobin 7.8 g/dl (14.0-18.0); Imm Gran Abs Auto 0.02 X10*3/uL (0.00-0.03); Imm Gran Pct Auto 0.3 % (0.0-0.4); Lymphocytes Absolute Auto 1.8 X10*3/uL (1.2-4.9); Lymphocytes Percent Auto 28.1 % (20-40); Mean Corpuscular HGB Conc 29.9 g/dl (31.0-36.0); Mean Corpuscular Hemoglobin 27.1 pg (27.0-33.0); Mean Corpuscular Volume 90.6 fL (80.0-98.0); Mean Platelet Volume 11.8 fL (9.4-12.4); Monocytes Absolute Auto 0.6 X10*3/uL (0.1-1.2); Monocytes Percent Auto 8.9 % (2-11); NRBC Pct Auto 0.5 /100WBC (0.0-0.2); Neutrophils Absolute Auto 3.8 x10*3/uL (2.0-8.3); Neutrophils Percent Auto 60.4 % (45-73); Platelet Count 143 X10*3/uL (160-400); Red Blood Count 2.88 X10*6/uL (4.60-5.80); Red Cell Distribution Width 19.3 % (11.0-16.0); White Blood Count 6.4 X10*3/uL (4.8-10.8)
[2024-08-25 10:06] LABS: Ammonia 37 umol/L (13-55)
[2024-08-25 10:07] LABS: Partial Thromboplastin Time 28.1 SEC (26.0-36.8)
[2024-08-25 10:23] LABS: Venous Blood Gas Refer to POC result
[2024-08-25 10:28] LABS: VBG Base Excess 13.7 mmol/L; VBG HCO3 39 mmol/L (22-26); VBG pCO2 55 mmHg; VBG pH 7.45 (7.32-7.43); VBG pO2 73 mmHg
[2024-08-25 10:44] LABS: Alanine Aminotransferase 11 U/L (0-40); Albumin Level 3.3 g/dL (3.5-5.0); Anion Gap 18 (12-20); Aspartate Amino Transferase 35 U/L (5-37); Bilirubin Direct 0.2 mg/dL (0.0-0.5); Bilirubin Total 0.7 mg/dL (0.0-1.0); Blood Urea Nitrogen 32 mg/dL (9-16); C Reactive Protein 6.06 mg/dL (< or = 0.50); Calcium 10.5 mg/dL (8.4-10.2); Carbon Dioxide 28 mmol/L (22-29); Chloride 101 mmol/L (96-108); Creatinine Clr Calc Pharmacy 11.6; Estimated Glomerular Filt Rate 13; Glucose Random 126 mg/dL (60-115); Magnesium 1.8 mg/dL (1.6-2.6); Potassium 3.9 mmol/L (3.3-5.1); Sodium 143 mmol/L (135-145); Total Protein 6.4 g/dL (6.5-8.0)
[2024-08-25 11:05] LABS: Influenza A PCR NEGATIVE (Negative); Influenza B PCR NEGATIVE (Negative); Resp Syncy Virus RNA Qual PCR NEGATIVE (Negative); SARS COV2 PCR INHOUSE NEGATIVE (Negative)
--- NOTE | 2024-08-25 11:40 | P.HPHOSP_ITS ---
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 Pt has apparently been having difficulties performing normal ADLs such as signing his name x5 days, slurred speech x2 days, and hallucinating since 0200 this morning, seeing and speaking to people who were not in the room. Last night also had dark stool x4 episodes. At time of this interview and exam pt is alert and oriented to name, place, and time. Reports felt lightheaded and dizzy yesterday after dialysis and feels more weak than normal. Otherwise has no other acute medical complaints. Denies chest pain/pressure. No nausea, vomiting diarrhea, abdominal pain. Denies acid reflux. In the ED pt had soft BP of 120/53, vitals otherwise stable and WNL. Labs were significant for stool testing positive for occult blood, otherwise grossly unremarkable and around baseline for patient. Normocytic anemia of 7.8/26.1. Creatinine 4.48. CRP 6.06. Albumin 3.3. Electrolytes WNL. Initial troponin 27.0. Tested negative for flu, COVID, RSV. CXR showed stable chronic changes with no acute superimposed process. CT?of head negative for intracranial hemorrhage or mass effect. 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 EKG demonstrated sinus rhythm with first-degree AV block without significant ST elevations or depressions. Pt was treated with IV Protonix. Pt will be admitted to the hospital for treatment and further evaluation of acute encephalopathy and dysarthria concerning for CVA and dark stools concerning for GIB. Review of Systems 2 Review of Systems: Yes all other systems are reviewed and are negative [facility] Medical History ESRD (end stage renal disease) CKD (chronic kidney disease) stage 5, GFR less than 15 ml/min MSSA bacteremia Dialysis patient COVID-19 vaccine administered Renal failure COPD (chronic obstructive pulmonary disease) Thyroid disease GERD (gastroesophageal reflux disease) Elevated cholesterol PVD (peripheral vascular disease) Prostate CA HTN (hypertension) Heart attack Surgical History Hx of cataract surgery Hx of cystoscopy History of incision and drainage H/O colonoscopy Hx of aortic valve replacement Hx of CABG Social History Household Members: None Household Members Other:: Lives with son.. Housing: Apartment Are you a primary hospice care transitions coordinator to a significant other at home: No Do you presently have visiting nurse or other home services: Yes (e marketing specialist) Alcohol intake: never Comment: Surgeon informed that all counts were correct Patient Tobacco Use Status: Never used Tobacco Smoked in Last 30 Days: No Use of substances other than those prescribed or required for medical reasons: Unable to respond Currently Displaying Signs/Symptoms of Drug Intoxication Withdrawal: No Advance Directives: No Advance Directives Information Provided: Yes Do you have a plan to hurt others: No Plan Recently lost weight without trying: No How much weight loss: 2-13 pounds Eating poorly because of decreased appetite: No Nutrition screen score: 1 Nutrition Risks: Poor intake 0-25% >4 days Poor oral hygiene: No service: No Current occupational status: disabled Meds Allergies Allergy/AdvReac Type Severity Reaction Status Date / Time No Known Allergies Allergy Mild NONE Verified 08/25/24 09:32 Home Medications ?Medication ?Instructions ?Recorded ?Confirmed ?Last Taken ?Type allopurinol 100 mg tablet 100 mg PO DAILY 12/30/20 08/25/24 06/28/23 History aspirin 81 mg tablet,delayed 81 mg PO DAILY 12/30/20 08/25/24 06/28/23 History release atorvastatin 80 mg tablet 80 mg PO BEDTIME 12/30/20 08/25/24 06/28/23 History cholecalciferol (vitamin D3) 25 25 mcg PO DAILY 12/30/20 08/25/24 06/28/23 History mcg (1,000 unit) capsule (Vitamin D3) levothyroxine 50 mcg tablet 50 mcg PO DAILY@0600 12/30/20 08/25/24 06/28/23 History omeprazole 20 mg capsule,delayed 20 mg PO DAILY@0630 12/30/20 08/25/24 06/28/23 History release cyanocobalamin (vitamin B-12) 1,000 mcg PO DAILY 06/10/23 08/25/24 06/28/23 History 1,000 mcg tablet cyclosporine 0.05 % eye drops 1 drp ophthalmic (eye) BID 06/10/23 08/25/24 06/28/23 History (Restasis MultiDose) tramadol 50 mg tablet 50 mg PO BEDTIME PRN Severe Pain 07/03/24 08/25/24 Unknown History (Scale Score 7-10) Physical Exam 2 Vital Signs and Narrative: Vital Signs: Last Vital Signs Temp 98.6 F 08/25/24 09:29 Pulse 76 08/25/24 09:36 Resp 20 08/25/24 09:29 BP 128/53 L 08/25/24 09:29 Pulse Ox 93 08/25/24 09:29 O2 Del Method Room Air 08/25/24 09:29 BMI result Body Mass Index 25.3 General: AOx3, no acute distress Resp: CTA bilaterally CVS: S1, S2, RRR, +3/6 murmur GI: +BS, NT, no distention Skin: Warm, dry Neuro: Global weakness noted though asymmetric, L>R. Pt with dysarthria. +left pronator drift. No facial droop noted. Extremities: No edema Psych: Appropriate affect Results Labs 08/25/24 09:50 08/25/24 09:50 Labs: Laboratory Results - last 24 hr 08/25/24 08/25/24 08/25/24 09:49 09:50 10:14 MCV 90.6 MCH 27.1 MCHC 29.9 L RDW 19.3 H Plt Count 143 L D MPV 11.8 Immature Gran % (Auto) 0.3 Neut % (Auto) 60.4 Lymph % (Auto) 28.1 [place] % (Auto) 8.9 Eos % (Auto) 1.7 Baso % (Auto) 0.6 Lymph # (Auto) 1.8 [place] # (Auto) 0.6 Eos # (Auto) 0.1 Baso # (Auto) 0.0 Abs Immat Gran (auto) 0.02 Absolute Neuts (auto) 3.8 Absolute Nucleated RBC 0.030 H Nucleated RBC % (auto) 0.5 H PT 12.9 H INR 1.1 APTT 28.1 VBG pH VBG pCO2 VBG pO2 VBG HCO3 VBG Base Excess Anion Gap 18 Estim Creat Clear Calc 11.6 Estimated GFR 13 Random Glucose 126 H Calcium 10.5 H D Magnesium 1.8 Total Bilirubin 0.7 Direct Bilirubin 0.2 AST 35 ALT 11 Ammonia 37 Troponin I High Sens 27.0 D C-Reactive Protein 6.06 H Total Protein 6.4 L Albumin 3.3 L Stool Occult Blood POSITIVE Influenza Type A (PCR) NEGATIVE Influenza Type B (PCR) NEGATIVE RSV RNA Qual (PCR) NEGATIVE SARS-CoV-2 RNA (RT-PCR) NEGATIVE Blood Type A Positive Antibody Screen NEGATIVE 08/25/24 10:21 MCV MCH MCHC RDW Plt Count MPV Immature Gran % (Auto) Neut % (Auto) Lymph % (Auto) [place] % (Auto) Eos % (Auto) Baso % (Auto) Lymph # (Auto) [place] # (Auto) Eos # (Auto) Baso # (Auto) Abs Immat Gran (auto) Absolute Neuts (auto) Absolute Nucleated RBC Nucleated RBC % (auto) PT INR APTT VBG pH 7.45 H VBG pCO2 55 VBG pO2 73 VBG HCO3 39 H VBG Base Excess 13.7 Anion Gap Estim Creat Clear Calc Estimated GFR Random Glucose Calcium Magnesium Total Bilirubin Direct Bilirubin AST ALT Ammonia Troponin I High Sens C-Reactive Protein Total Protein Albumin Stool Occult Blood Influenza Type A (PCR) Influenza Type B (PCR) RSV RNA Qual (PCR) SARS-CoV-2 RNA (RT-PCR) Blood Type Antibody Screen Imaging Radiologist's Impressions: Impressions Chest X-Ray 08/25/24 09:27 IMPRESSION: Chronic changes as above. No acute superimposed process. Electronically signed by: David Sebastian MD 08/25/2024 10:40 AM EST RP Head CT 08/25/24 10:31 IMPRESSION: No intracranial hemorrhage or mass effect. Generalized atrophy and chronic small vessel white matter ischemic changes. IMPRESSION: No intracranial hemorrhage or mass effect. Generalized atrophy and chronic small-vessel white matter ischemic changes. Asymmetric prominence of the extra-axial space along the right parietal lobe which may represent a subdural hygroma. 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 Pt will be admitted to the hospital for treatment and further evaluation of acute encephalopathy and dysarthria concerning for CVA and dark stools concerning for GIB. ?CVA Pt with confusion, dysarthria, ?worsening left hemiparesis CT of head negative CTA unable to obtain d/t ESRD Will get MRI of head/brain Continue statin Hold aspirin d/t possible GIB PT/OT consult Neurology consult NPO pending swallow eval Monitor on telemetry Dark-colored stool Pt's son reports 4 episodes x1 day Stool positive for occult blood, H&H 7.8/26.1, around baseline ?GI bleed Will treat with Protonix IV bid Trend CBC, GI consult as necessary ESRD On HD M/W/, last dialyzed Tuesday [facility] nephrology consult Follow lytes Hypothyroidism Continue levothyroxine Gout Continue allopurinol Full Code Attending:?Dr. Sargent DVT Prophylaxis: Lovenox Pt will require a hospitalization of at least two nights for treatment and further evaluation of confusion and dysarthria concerning for CVA and dark- colored stools concerning for GIB. Pt will require hospital-level care for close cardiac monitoring, monitoring of labs, additional imaging with MRI, and specialist consultation with neurology. Quality Stroke Does the patient have a stroke diagnosis?: No Reason for No Anti-thrombotic by Day Two: Contraindicated (Last known well time 4+ days ago, outside tNK window) VTE Prior VTE?: No VTE Risk Level:: Medical - moderate - high VTE Device Contraindication: N/A - Device Ordered VTE Drug Contraindication: Treatment Not Indicated
--- NOTE | 2024-08-25 12:10 | PHA.MEDREC ---
Pharmacy Consult ? Medication Reconciliation Pharmacy has completed the medication reconciliation. Utilized lumber scaler services. Spoke to pt to confirm meds. Patient confirms to take all medbox meds.
[2024-08-25 13:59] LABS: Alkaline Phosphatase 64 U/L (39-117)
--- NOTE | 2024-08-25 14:05 | PC.NURSE ---
Spoke to son, Gian to fill out MRI screening form, able to answer questions to the best of his ability, elevator service technician Tiffani made aware, picture taken and sent to tiffani.
--- NOTE | 2024-08-25 14:17 | PC.NURSE ---
Abrahanelry taken off patient, patient to go to MRI w/ belongings d/t patient preference.
--- NOTE | 2024-08-25 15:10 | PC.NURSE ---
Late entry, patient failed swallow Mtaty aj made aware, cleared pt. going to MRI w/o monitor.
[2024-08-25] MEDS: 0.9 % Sodium Chloride Flush 3 ML SYRINGE IVFLUSH ×2 (17:13→20:49)
[2024-08-26] MEDS: Lactated Ringers 1,000 ML 80 ML IVCONT (02:13)
[2024-08-26 03:30] VITALS: BP 125/60; PULSE 69; RESP 18; TEMP 36.3; O2SAT 94
[2024-08-26] MEDS: Pantoprazole Sodium 40 MG/10 ML VIAL IVPUSH ×2 (05:27→17:55)
[2024-08-26 07:37] VITALS: BP 133/60; PULSE 67; RESP 12; TEMP 36.1; O2SAT 93
[2024-08-26 08:44] LABS: Hematocrit 25.7 % (42.0-52.0); Hemoglobin 7.7 g/dl (14.0-18.0); Mean Corpuscular Hemoglobin 27.5 pg (27.0-33.0); Mean Corpuscular Volume 91.8 fL (80.0-98.0); Mean Platelet Volume 12.2 fL (9.4-12.4); Platelet Count 141 X10*3/uL (160-400); Red Cell Distribution Width 19.6 % (11.0-16.0); White Blood Count 6.6 X10*3/uL (4.8-10.8)
[2024-08-26 09:01] LABS: Anion Gap 11 (12-20); Blood Urea Nitrogen 44 mg/dL (9-16); Calcium 9.9 mg/dL (8.4-10.2); Carbon Dioxide 33 mmol/L (22-29); Chloride 103 mmol/L (96-108); Cholesterol 114 mg/dL (<200); Creatinine Clr Calc Pharmacy 9.2; Estimated Glomerular Filt Rate 10; Glucose Random 82 mg/dL (60-115); HDL Cholesterol 29 mg/dL (>40); LDL Cholesterol Calculated 60 mg/dL (<100); Sodium 143 mmol/L (135-145); Triglycerides 128 mg/dL (<150)
[2024-08-26] MEDS: Folic Acid 1 MG TABLET PO (10:49)
[2024-08-26] MEDS: Cyanocobalamin (Vitamin B-12) 1,000 MCG TABLET 1000 MCG PO (10:49)
[2024-08-26] MEDS: allopurinoL 100 MG TABLET PO (10:49)
[2024-08-26] MEDS: Cholecalciferol (Vitamin D3) 25 MCG TABLET PO (10:50)
[2024-08-26] MEDS: 0.9 % Sodium Chloride Flush 3 ML SYRINGE IVFLUSH ×3 (10:50→22:54)
--- NOTE | 2024-08-26 11:13 | MHC.CM.PN ---
IMM 08/26. This CM met with pt with the assistance of a pan helper. Pt lives at home with his son who will transport him home at discharge. Pt uses a walker and a wheelchair. Pt has [employer] services, and goes to HD at [facility] on //. HCP on file and verified, son Edward is listed as HCP. This CM called pts son/HCP Edward to confirm pts information, unable to reach Edward, and voicemail is unavailable. PCP: Dr. Adriane Higuera
--- NOTE | 2024-08-26 11:17 | MHC.CM.PN ---
IMM 08/26. This CM met with pt with the assistance of a helper teacher. Pt lives at home with his son who will transport him home at discharge. Pt uses a walker and a wheelchair. 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 HCP on file and verified, son Edbryson is listed as HCP. Pt noted to have some confusion/repetitive statements. This CM called pts son/HCP Edward to confirm pts information, unable to reach Edward, and voicemail is unavailable. PCP: Dr. Adriane Higuera
[2024-08-26 11:19] LABS: Appearance Urine Cloudy; Color Urine Yellow; Glucose Urine UA Negative (Negative); Leukocyte Esterase Urine Small (1+) (Negative); Nitrite Urine Negative (Negative); PH >= 9.0 (5.0-9.0); UMIC TRIGGER UACC YES; Urine Blood Negative (Negative); Urine Ketones Negative (Negative); Urine Protein 100 (2+) mg/dL (Neg-Trace)
[2024-08-26 11:43] LABS: Bacteria Urine None Seen (None Seen); Hyaline Casts Urine 0-2 /LPF (0-2); RBC Urine 0-2 /HPF (0-2); UACC Culture Trigger YES; WBC Urine 0-5 /HPF (0-5)
[2024-08-26 11:57] VITALS: BP 147/71; PULSE 69; RESP 16; TEMP 36.2; O2SAT 96
--- NOTE | 2024-08-26 12:56 | P.PNIM_ITS ---
Subjective Subjective Date of Service: 08/26/24 Interval History: seen and evaluated this morning speech back to baseline feels better overall passed swallow screening no other events Review of Systems Review of Systems: Yes all other systems are reviewed and are negative Physical Exam 2 Vital Signs: Vital Signs: Last Vital Signs Temp 97.2 F 08/26/24 11:57 Pulse 69 08/26/24 11:57 Resp 16 08/26/24 11:57 BP 147/71 H 08/26/24 11:57 Pulse Ox 96 08/26/24 11:57 O2 Del Method Room Air 08/26/24 11:57 BMI result Body Mass Index 25.3 Const: Other: Constitutional : Awake, interactive, not in distress Neck : Normal inspection, Supple Cardiovascular : RRR, no JVP, no lower extremity edema Respiratory : good bilateral air entry, no crackles, wheezes or rhonchi Gastrointestinal: soft, lax, Normal bowel sounds, Non tender Skin : Warm, Dry Neurological : Alert & oriented x3, left sided hemiparesis Objective Data Active Medications Acetaminophen (Acetaminophen 325 Mg Tablet) 650 mg PO Q6H PRN PRN Reason: Pain, Mild (Pain Scale 1-3), fever or headache Allopurinol (Allopurinol 100 Mg Tablet) 100 mg PO DAILY [facility] Last Admin: 08/26/24 10:49 Dose: 100 mg Documented By: DONNY Atorvastatin Calcium (Atorvastatin Calcium 80 Mg Tablet) 80 mg PO BEDTIME [facility] Last Admin: 08/25/24 20:51 Dose: Not Given Documented By: KAITY Non-Admin Reason: NPO until swallow eval Benzonatate (Benzonatate 100 Mg Capsule) 100 mg PO TID PRN PRN Reason: Cough Calcium Carbonate (Calcium Carbonate 750 Mg Tab.Chew) 750 mg PO Q4H PRN PRN Reason: Heartburn Cyanocobalamin (Cyanocobalamin (Vitamin B-12) 1,000 Mcg Tablet) 1,000 mcg PO DAILY [facility] Last Admin: 08/26/24 10:49 Dose: 1,000 mcg Documented By: DONNY Folic Acid (Folic Acid 1 Mg Tablet) 1 mg PO DAILY [facility] Last Admin: 08/26/24 10:49 Dose: 1 mg Documented By: DONNY Levothyroxine Sodium (Levothyroxine Sodium 50 Mcg Tablet) 50 mcg PO DAILY@0600 [facility] Last Admin: 08/26/24 05:22 Dose: Not Given Documented By: KAITY Non-Admin Reason: NPO Magnesium Hydroxide (Milk Of Magnesia 30 Ml Oral.Susp) 30 ml PO DAILY PRN PRN Reason: Constipation Melatonin (Melatonin 3 Mg Tablet) 6 mg PO BEDTIME PRN PRN Reason: Insomnia Non-Formulary Medication (Cyclosporine [Restasis Multidose]) 1 drop EYE-BOTH BID [facility] Ondansetron HCl (Ondansetron Hcl 4 Mg/2 Ml Vial) 4 mg IVPUSH Q8H PRN PRN Reason: Nausea and Vomiting Pantoprazole Sodium (Pantoprazole Sodium 40 Mg/10 Ml Vial) 40 mg IVPUSH BID@0630,1630 [facility] Last Admin: 08/26/24 05:27 Dose: 40 mg Documented By: KAITY Sodium Chloride (0.9 % Sodium Chloride Flush 3 Ml Syringe) 3 ml IVFLUSH QSHIFT [facility] Last Admin: 08/26/24 10:50 Dose: 3 ml Documented By: DONNY Tramadol HCl (Tramadol Hcl 50 Mg Tablet) 50 mg PO BEDTIME PRN PRN Reason: Severe Pain (Scale Score 7-10) Vitamin D (Cholecalciferol (Vitamin D3) 25 Mcg Tablet) 25 mcg PO DAILY [facility] Last Admin: 08/26/24 10:50 Dose: 25 mcg Documented By: DONNY Labs 08/26/24 08:14 08/26/24 08:14 Labs: Laboratory Results - last 24 hr 08/25/24 08/25/24 08/26/24 09:50 10:21 08:14 MCV 91.8 MCH 27.5 MCHC 30.0 L RDW 19.6 H Plt Count 141 L MPV 12.2 Absolute Nucleated RBC 0.000 Nucleated RBC % (auto) 0.0 VBG O2 Saturation TNP Anion Gap 11 L Estim Creat Clear Calc 9.2 Estimated GFR 10 Random Glucose 82 Calcium 9.9 Alkaline Phosphatase 64 Triglycerides 128 Cholesterol 114 LDL Cholesterol, Calc 60 HDL Cholesterol 29 L Urine Color Urine Appearance Urine pH Ur Specific [place] Urine Protein Urine Glucose (UA) Urine Ketones Urine Blood Urine Nitrite Ur Leukocyte Esterase Urine RBC Urine WBC Ur Squamous Epith Cells Urine Bacteria Hyaline Casts 08/26/24 11:05 MCV MCH MCHC RDW Plt Count MPV Absolute Nucleated RBC Nucleated RBC % (auto) VBG O2 Saturation Anion Gap Estim Creat Clear Calc Estimated GFR Random Glucose Calcium Alkaline Phosphatase Triglycerides Cholesterol LDL Cholesterol, Calc HDL Cholesterol Urine Color Yellow Urine Appearance Cloudy Urine pH >= 9.0 Ur Specific [place] 1.010 Urine Protein 100 (2+) H Urine Glucose (UA) Negative Urine Ketones Negative Urine Blood Negative Urine Nitrite Negative Ur Leukocyte Esterase Small (1+) H Urine RBC 0-2 Urine WBC 0-5 Ur Squamous Epith Cells 3-5 Urine Bacteria None Seen Hyaline Casts 0-2 Assessment and Plan (1) Dysarthria: Status: Acute (2) Encephalopathy acute: Status: Acute (3) Melena: Status: Acute (4) ESRD (end stage renal disease): Status: Acute Plan Pt is an 84-year-old male with a PMH significant for?ESRD on HD //, 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 Pt will be admitted to the hospital for treatment and further evaluation of acute encephalopathy and dysarthria concerning for CVA and dark stools concerning for GIB. 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 on telemetry Dark-colored stool with chronic anemia no active bleeding noticed Stool positive for occult blood H&H 7.7, close to baseline GI eval continue Protonix IV bid ESRD On HD //, last dialyzed Tuesday nephrology consult Follow lytes Hypothyroidism Continue levothyroxine Gout Continue allopurinol Full Code DVT Prophylaxis: Lovenox Pt will require a hospitalization overnight for treatment and further evaluation of dark-colored stools concerning for GIB on cardiac monitoring, monitoring of labs, and specialist consultation with GI Quality Stroke Does the patient have a stroke diagnosis?: No Reason for No Anti-thrombotic by Day Two: Contraindicated (Last known well time 4+ days ago, outside tNK window) VTE Prior VTE?: No VTE Risk Level:: Medical - moderate - high VTE Device Contraindication: N/A - Device Ordered VTE Drug Contraindication: Treatment Not Indicated
--- NOTE | 2024-08-26 13:27 | P.CNGI_ITS ---
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 Family had noted pt was having difficulty doing daily tasks at home and was slurring his speech. He was also noted to have hallucinations. When he was brought to the hospital he was noted to be in no acute distress. Vitally stable. Labs with chronic normocytic normochromic anemia. Elevated CRP of 6. CVA w/up so far negative for acute stroke. Per bedside RN, mental status improved considerably from before. On my assessment, pt is cooperative. Able to answer some questions. Does not report abd pain, N,V,D. This is also corroborated by RN that he has not had any BMs since arriving to floor. Tolerating diet. Review of Systems 2 Review of Systems: Yes all other systems are reviewed and are negative PMFSH Past Medical History Medical History ESRD (end stage renal disease) CKD (chronic kidney disease) stage 5, GFR less than 15 ml/min MSSA bacteremia Dialysis patient COVID-19 vaccine administered Renal failure COPD (chronic obstructive pulmonary disease) Thyroid disease GERD (gastroesophageal reflux disease) Elevated cholesterol PVD (peripheral vascular disease) Prostate CA HTN (hypertension) Heart attack Surgical History Surgical History Hx of cataract surgery Hx of cystoscopy History of incision and drainage H/O colonoscopy Hx of aortic valve replacement Hx of CABG Social History Social History Household Members: None Household Members Other:: Lives with son.. 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) Alcohol intake: never Comment: Surgeon informed that all counts were correct Patient Tobacco Use Status: Never used Tobacco Smoked in Last 30 Days: No Use of substances other than those prescribed or required for medical reasons: Unable to respond Currently Displaying Signs/Symptoms of Drug Intoxication Withdrawal: No Advance Directives: No Advance Directives Information Provided: Yes Do you have a plan to hurt others: No Plan Recently lost weight without trying: No How much weight loss: 2-13 pounds Eating poorly because of decreased appetite: No Nutrition screen score: 1 Nutrition Risks: Poor intake 0-25% >4 days Poor oral hygiene: No service: No Current occupational status: disabled Meds Allergies Allergy/AdvReac Type Severity Reaction Status Date / Time No Known Allergies Allergy Mild NONE Verified 08/25/24 09:32 Active Medications: Current Medications Acetaminophen (Acetaminophen 325 Mg Tablet) 650 mg PO Q6H PRN PRN Reason: Pain, Mild (Pain Scale 1-3), fever or headache Allopurinol (Allopurinol 100 Mg Tablet) 100 mg PO DAILY [facility] Last Admin: 08/26/24 10:49 Dose: 100 mg Atorvastatin Calcium (Atorvastatin Calcium 80 Mg Tablet) 80 mg PO BEDTIME [facility] Last Admin: 08/25/24 20:51 Dose: Not Given Benzonatate (Benzonatate 100 Mg Capsule) 100 mg PO TID PRN PRN Reason: Cough Calcium Carbonate (Calcium Carbonate 750 Mg Tab.Chew) 750 mg PO Q4H PRN PRN Reason: Heartburn Cyanocobalamin (Cyanocobalamin (Vitamin B-12) 1,000 Mcg Tablet) 1,000 mcg PO DAILY [facility] Last Admin: 08/26/24 10:49 Dose: 1,000 mcg Folic Acid (Folic Acid 1 Mg Tablet) 1 mg PO DAILY [facility] Last Admin: 08/26/24 10:49 Dose: 1 mg Levothyroxine Sodium (Levothyroxine Sodium 50 Mcg Tablet) 50 mcg PO DAILY@0600 [facility] Last Admin: 08/26/24 05:22 Dose: Not Given Magnesium Hydroxide (Milk Of Magnesia 30 Ml Oral.Susp) 30 ml PO DAILY PRN PRN Reason: Constipation Melatonin (Melatonin 3 Mg Tablet) 6 mg PO BEDTIME PRN PRN Reason: Insomnia Non-Formulary Medication (Cyclosporine [Restasis Multidose]) 1 drop EYE-BOTH BID [facility] Ondansetron HCl (Ondansetron Hcl 4 Mg/2 Ml Vial) 4 mg IVPUSH Q8H PRN PRN Reason: Nausea and Vomiting Pantoprazole Sodium (Pantoprazole Sodium 40 Mg/10 Ml Vial) 40 mg IVPUSH BID@0630,1630 [facility] Last Admin: 08/26/24 05:27 Dose: 40 mg Sodium Chloride (0.9 % Sodium Chloride Flush 3 Ml Syringe) 3 ml IVFLUSH QSHIFT [facility] Last Admin: 08/26/24 10:50 Dose: 3 ml Tramadol HCl (Tramadol Hcl 50 Mg Tablet) 50 mg PO BEDTIME PRN PRN Reason: Severe Pain (Scale Score 7-10) Vitamin D (Cholecalciferol (Vitamin D3) 25 Mcg Tablet) 25 mcg PO DAILY [facility] Last Admin: 08/26/24 10:50 Dose: 25 mcg Home Medications ?Medication ?Instructions ?Recorded ?Confirmed ?Last Taken ?Type allopurinol 100 mg tablet 100 mg PO DAILY 12/30/20 08/25/24 06/28/23 History aspirin 81 mg tablet,delayed 81 mg PO DAILY 12/30/20 08/25/24 06/28/23 History release atorvastatin 80 mg tablet 80 mg PO BEDTIME 12/30/20 08/25/24 06/28/23 History cholecalciferol (vitamin D3) 25 25 mcg PO DAILY 12/30/20 08/25/24 06/28/23 History mcg (1,000 unit) capsule (Vitamin D3) levothyroxine 50 mcg tablet 50 mcg PO DAILY@0600 12/30/20 08/25/24 06/28/23 History omeprazole 20 mg capsule,delayed 20 mg PO DAILY@0630 12/30/20 08/25/24 06/28/23 History release cyanocobalamin (vitamin B-12) 1,000 mcg PO DAILY 06/10/23 08/25/24 06/28/23 History 1,000 mcg tablet cyclosporine 0.05 % eye drops 1 drp ophthalmic (eye) BID 06/10/23 08/25/24 06/28/23 History (Restasis MultiDose) tramadol 50 mg tablet 50 mg PO BEDTIME PRN Severe Pain 07/03/24 08/25/24 Unknown History (Scale Score 7-10) Physical Exam 2 Vital Signs: Vital Signs: Last Vital Signs Temp 97.2 F 08/26/24 11:57 Pulse 69 08/26/24 11:57 Resp 16 08/26/24 11:57 BP 147/71 H 08/26/24 11:57 Pulse Ox 96 08/26/24 11:57 O2 Del Method Room Air 08/26/24 11:57 BMI result Body Mass Index 25.3 Elderly male NAD Nonicteric No overt resp distress Abd soft, nontender, nondistended Ext with mild pitting edema A/Ox2 no asterixis Results Labs 08/27/24 06:00 08/27/24 06:00 Labs: Short CBC 08/26/24 Range/Units 08:14 WBC 6.6 (4.8-10.8) X10*3/uL Hgb 7.7 L (14.0-18.0) g/dl Hct 25.7 L (42.0-52.0) % Plt Count 141 L (160-400) X10*3/uL BMP 08/26/24 08:14 Sodium 143 Potassium 4.0 Chloride 103 Carbon Dioxide 33 H BUN 44 H Creatinine 5.67 H* Calcium 9.9 Liver Function 08/25/24 Range/Units 09:50 Alkaline Phosphatase 64 (39-117) U/L Urine 08/26/24 Range/Units 11:05 Urine Color Yellow Urine Appearance Cloudy Urine pH >= 9.0 (5.0-9.0) Ur Specific [place] 1.010 (1.005-1.025) Urine Protein 100 (2+) H (Neg-Trace) mg/dL Urine Glucose (UA) Negative (Negative) mg/dL Assessment and Plan (1) Encephalopathy acute: Status: Acute (2) ESRD (end stage renal disease): Status: Acute (3) Anemia: Qualifiers: Anemia type: unspecified type Qualified Code(s): D64.9 - Anemia, unspecified Status: Acute Plan P/w acute mental status changes and dark stools at home concerning for GIB. HDS albeit hypertensive. H/H chronically low likely due to renal insufficiency. No evidence of overt bleeding since arrival. Brown BM on rectal documented in ER. Likely had self limited low grade GIB vs diarrhea without melena. Ddx include gastritis/esophagitis, PUD, colitis. Stool occult test noted however this is not validated as a tool for GIB in hospitalised patients and therefore of uncertain implication. Plan: - Agree with empiric IV PPI for now which can be switched to PO once daily in 24h if no overt GIB and H/H remains steady. - OK to resume ASA - Diet as per primary team and Neuro - Monitor H/H and transfuse for Hb < 7 - Consider checking iron panel - No indication for emergent endoscopic evaluation at this time Thank you for allowing me to participate in his care. Pls do not hesitate to reach out for questions or concerns. Procedures Date of Service Date of Service: 08/27/24
[2024-08-26 15:17] VITALS: BP 159/78; PULSE 68; RESP 16; TEMP 36.2; O2SAT 95
[2024-08-26 19:55] VITALS: BP 151/67; PULSE 67; RESP 18; TEMP 36.2; O2SAT 93
[2024-08-26] MEDS: Atorvastatin Calcium 80 MG TABLET PO (22:54)
[2024-08-27] VITALS: BP 150/65; PULSE 74; RESP 18; TEMP 36.3; O2SAT 93
--- NOTE | 2024-08-27 01:30 | PM.CNNEP ---
History of Present Illness Reason for Consult Consult date: 08/27/24 Chief Complaint Chief complaint: confusion, dysarthria, dark stools History of Present Illness Narrative: RONALDO CONSULTED for HD in ESRD Scheduled HD Mon am [facility] Past Medical History Medical History ESRD (end stage renal disease) CKD (chronic kidney disease) stage 5, GFR less than 15 ml/min MSSA bacteremia Dialysis patient COVID-19 vaccine administered Renal failure COPD (chronic obstructive pulmonary disease) Thyroid disease GERD (gastroesophageal reflux disease) Elevated cholesterol PVD (peripheral vascular disease) Prostate CA HTN (hypertension) Heart attack Surgical History Surgical History Hx of cataract surgery Hx of cystoscopy History of incision and drainage H/O colonoscopy Hx of aortic valve replacement Hx of CABG Social History Social History Household Members: None Household Members Other:: Lives with son.. 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) Alcohol intake: never Comment: Surgeon informed that all counts were correct Patient Tobacco Use Status: Never used Tobacco Smoked in Last 30 Days: No Use of substances other than those prescribed or required for medical reasons: Unable to respond Currently Displaying Signs/Symptoms of Drug Intoxication Withdrawal: No Advance Directives: No Advance Directives Information Provided: Yes Do you have a plan to hurt others: No Plan Recently lost weight without trying: No How much weight loss: 2-13 pounds Eating poorly because of decreased appetite: No Nutrition screen score: 1 Nutrition Risks: Poor intake 0-25% >4 days Poor oral hygiene: No service: No Current occupational status: disabled Meds Allergies Allergy/AdvReac Type Severity Reaction Status Date / Time No Known Allergies Allergy Mild NONE Verified 08/25/24 09:32 Active Medications: Current Medications Acetaminophen (Acetaminophen 325 Mg Tablet) 650 mg PO Q6H PRN PRN Reason: Pain, Mild (Pain Scale 1-3), fever or headache Allopurinol (Allopurinol 100 Mg Tablet) 100 mg PO DAILY [facility] Last Admin: 08/26/24 10:49 Dose: 100 mg Atorvastatin Calcium (Atorvastatin Calcium 80 Mg Tablet) 80 mg PO BEDTIME [facility]INTIN Last Admin: 08/26/24 22:54 Dose: 80 mg Benzonatate (Benzonatate 100 Mg Capsule) 100 mg PO TID PRN PRN Reason: Cough Calcium Carbonate (Calcium Carbonate 750 Mg Tab.Chew) 750 mg PO Q4H PRN PRN Reason: Heartburn Cyanocobalamin (Cyanocobalamin (Vitamin B-12) 1,000 Mcg Tablet) 1,000 mcg PO DAILY [facility] Last Admin: 08/26/24 10:49 Dose: 1,000 mcg Folic Acid (Folic Acid 1 Mg Tablet) 1 mg PO DAILY [facility] Last Admin: 08/26/24 10:49 Dose: 1 mg Levothyroxine Sodium (Levothyroxine Sodium 50 Mcg Tablet) 50 mcg PO DAILY@0600 [facility] Last Admin: 08/26/24 05:22 Dose: Not Given Magnesium Hydroxide (Milk Of Magnesia 30 Ml Oral.Susp) 30 ml PO DAILY PRN PRN Reason: Constipation Melatonin (Melatonin 3 Mg Tablet) 6 mg PO BEDTIME PRN PRN Reason: Insomnia Non-Formulary Medication (Cyclosporine [Restasis Multidose]) 1 drop EYE-BOTH BID [facility] Ondansetron HCl (Ondansetron Hcl 4 Mg/2 Ml Vial) 4 mg IVPUSH Q8H PRN PRN Reason: Nausea and Vomiting Pantoprazole Sodium (Pantoprazole Sodium 40 Mg/10 Ml Vial) 40 mg IVPUSH BID@0630,1630 [facility] Last Admin: 08/26/24 17:55 Dose: 40 mg Sodium Chloride (0.9 % Sodium Chloride Flush 3 Ml Syringe) 3 ml IVFLUSH QSHIFT [facility] Last Admin: 08/26/24 22:54 Dose: 3 ml Tramadol HCl (Tramadol Hcl 50 Mg Tablet) 50 mg PO BEDTIME PRN PRN Reason: Severe Pain (Scale Score 7-10) Vitamin D (Cholecalciferol (Vitamin D3) 25 Mcg Tablet) 25 mcg PO DAILY [facility] Last Admin: 08/26/24 10:50 Dose: 25 mcg Home Medications ?Medication ?Instructions ?Recorded ?Confirmed ?Last Taken ?Type allopurinol 100 mg tablet 100 mg PO DAILY 12/30/20 08/25/24 06/28/23 History aspirin 81 mg tablet,delayed 81 mg PO DAILY 12/30/20 08/25/24 06/28/23 History release atorvastatin 80 mg tablet 80 mg PO BEDTIME 12/30/20 08/25/24 06/28/23 History cholecalciferol (vitamin D3) 25 25 mcg PO DAILY 12/30/20 08/25/24 06/28/23 History mcg (1,000 unit) capsule (Vitamin D3) levothyroxine 50 mcg tablet 50 mcg PO DAILY@0600 12/30/20 08/25/24 06/28/23 History omeprazole 20 mg capsule,delayed 20 mg PO DAILY@0630 12/30/20 08/25/24 06/28/23 History release cyanocobalamin (vitamin B-12) 1,000 mcg PO DAILY 06/10/23 08/25/24 06/28/23 History 1,000 mcg tablet cyclosporine 0.05 % eye drops 1 drp ophthalmic (eye) BID 06/10/23 08/25/24 06/28/23 History (Restasis MultiDose) tramadol 50 mg tablet 50 mg PO BEDTIME PRN Severe Pain 07/03/24 08/25/24 Unknown History (Scale Score 7-10) Physical Exam Vital Signs: Last Vital Signs Temp 97.3 F 08/27/24 00:00 Pulse 74 08/27/24 00:00 Resp 18 08/27/24 00:00 BP 150/65 H 08/27/24 00:00 Pulse Ox 93 08/27/24 00:00 O2 Del Method Room Air 08/27/24 00:00 BMI result Body Mass Index 25.3 Results Lab Results 08/26/24 08:14 08/26/24 08:14 Lab results: Chemistry 08/25/24 08/26/24 09:50 08:14 Sodium 143 143 Potassium 3.9 4.0 Carbon Dioxide 28 33 H BUN 32 H 44 H Creatinine 4.48 H* 5.67 H* Calcium 10.5 H D 9.9 Hematology 08/25/24 08/26/24 09:50 08:14 WBC 6.4 6.6 Hgb 7.8 L 7.7 L Plt Count 143 L D 141 L Urinalysis 08/26/24 11:05 Urine Color Yellow Urine Appearance Cloudy Urine pH >= 9.0 Ur Specific [place] 1.010 Urine Protein 100 (2+) H Urine Glucose (UA) Negative Urine Ketones Negative Urine Blood Negative Urine Nitrite Negative Ur Leukocyte Esterase Small (1+) H Urine RBC 0-2 Urine WBC 0-5 Ur Squamous Epith Cells 3-5 Hyaline Casts 0-2 Procedures Date of Service Date of Service: 08/27/24
[2024-08-27 03:31] VITALS: BP 146/65; PULSE 74; RESP 18; TEMP 36.3; O2SAT 92
[2024-08-27] MEDS: Pantoprazole Sodium 40 MG/10 ML VIAL IVPUSH ×2 (05:31→15:55)
[2024-08-27] MEDS: Levothyroxine Sodium 50 MCG TABLET PO (05:31)
[2024-08-27 07:00] LABS: Hematocrit 26.2 % (42.0-52.0); Hemoglobin 7.8 g/dl (14.0-18.0); Mean Corpuscular HGB Conc 29.8 g/dl (31.0-36.0); Mean Corpuscular Hemoglobin 26.9 pg (27.0-33.0); Mean Corpuscular Volume 90.3 fL (80.0-98.0); Mean Platelet Volume 12.7 fL (9.4-12.4); NRBC Pct Auto 0.4 /100WBC (0.0-0.2); Platelet Count 204 X10*3/uL (160-400); Red Cell Distribution Width 19.9 % (11.0-16.0); White Blood Count 7.4 X10*3/uL (4.8-10.8)
[2024-08-27 07:03] LABS: Anion Gap 18 (12-20); Blood Urea Nitrogen 56 mg/dL (9-16); Carbon Dioxide 27 mmol/L (22-29); Chloride 99 mmol/L (96-108); Creatinine Clr Calc Pharmacy 6.8; Estimated Glomerular Filt Rate 7; Glucose Random 87 mg/dL (60-115); Potassium 4.2 mmol/L (3.3-5.1); Sodium 140 mmol/L (135-145)
[2024-08-27 07:43] VITALS: BP 148/72; PULSE 68; RESP 20; TEMP 36.4; O2SAT 97
[2024-08-27] MEDS: Cholecalciferol (Vitamin D3) 25 MCG TABLET PO (08:18)
[2024-08-27] MEDS: Cyanocobalamin (Vitamin B-12) 1,000 MCG TABLET 1000 MCG PO (08:18)
[2024-08-27] MEDS: 0.9 % Sodium Chloride Flush 3 ML SYRINGE IVFLUSH ×2 (08:18→15:55)
[2024-08-27] MEDS: allopurinoL 100 MG TABLET PO (08:18)
[2024-08-27] MEDS: Folic Acid 1 MG TABLET PO (08:18)
--- NOTE | 2024-08-27 10:15 | MHC.SL.SWA ---
Speech Pathologist Impression:Risk of Aspiration, Oropharyngeal Dysphagia Risk of Aspiration Due to: Medically Fragile Neurological Condition Reduced Cognition Dysphasia Diet Status: UPGRADE from NDD2 to NDD3 Liquid Consistency and Strategies for Safe Swallow: Liquid Intake Recommendation: Thin Liquid Intake Strategies: Small Sips Solid Food Consistency: Dietary Recommendations: Chopped/Advanced (NDD3) Additional Modifications to Solid Foods: Patient's dysphagia appears stable/unchanged from previous PRODUCTIVITY ENGINEER visits. Recommend CHOPPED/ADVANCED (NDD3) solids for ease of mastication and THIN liquids, pills WHOLE in LIQUID. Strategies recommended to promote oral and pharyngeal clearance: small bites, chew food well, moisten food with sauces/gravies, alternate bites with sips of liquid, dry swallow between bites. PRODUCTIVITY ENGINEER to f/u 1x to ensure tolerance. Oral Medication Intake: Whole with Liquid Please contact the pharmacy regarding appropriate crushable or liquid drug formulations that are available whenever modified delivery is recommended. Supervision While Eating and Drinking for Safe Swallow: Total Supervision (1:1) Recommendation for Speech: Inpatient Speech Therapy Comment: 1 f/u Frequency/Duration: Date Range for Service Req: Timeline to reassess: Party Plan Dealer Clinican/Clinical Fellow: No Supervisory Statement: I have reviewed and agree with the student/clinical fellow's documentation: N/A Speech Language Pathologist: Dora Redding M.A., CCC-PRODUCTIVITY ENGINEER
--- NOTE | 2024-08-27 10:18 | MHC.CM.PN ---
PT is recommending STR VS 24/7 care at home. Patient gets [facility] HD [facility] following. CM will follow.
--- NOTE | 2024-08-27 12:22 | P.PNIM_ITS ---
Subjective Subjective Date of Service: 08/27/24 Interval History: seen and evaluated this morning speech back to baseline feels better overall passed swallow screening no other events Physical Exam 2 Vital Signs: Vital Signs: Last Vital Signs Temp 97.6 F 08/27/24 07:43 Pulse 68 08/27/24 07:43 Resp 20 08/27/24 07:43 BP 148/72 H 08/27/24 07:43 Pulse Ox 97 08/27/24 07:43 O2 Del Method Room Air 08/27/24 07:43 BMI result Body Mass Index 25.3 Const: Other: Constitutional : Awake, interactive, not in distress Neck : Normal inspection, Supple Cardiovascular : RRR, no JVP, no lower extremity edema Respiratory : good bilateral air entry, no crackles, wheezes or rhonchi Gastrointestinal: soft, lax, Normal bowel sounds, Non tender Skin : Warm, Dry Neurological : Alert & oriented x3, left sided hemiparesis Objective Data Active Medications Acetaminophen (Acetaminophen 325 Mg Tablet) 650 mg PO Q6H PRN PRN Reason: Pain, Mild (Pain Scale 1-3), fever or headache Allopurinol (Allopurinol 100 Mg Tablet) 100 mg PO DAILY [facility] Last Admin: 08/27/24 08:18 Dose: 100 mg Documented By: HATTIE Atorvastatin Calcium (Atorvastatin Calcium 80 Mg Tablet) 80 mg PO BEDTIME [facility] Last Admin: 08/26/24 22:54 Dose: 80 mg Documented By: KAITY Benzonatate (Benzonatate 100 Mg Capsule) 100 mg PO TID PRN PRN Reason: Cough Calcium Carbonate (Calcium Carbonate 750 Mg Tab.Chew) 750 mg PO Q4H PRN PRN Reason: Heartburn Cyanocobalamin (Cyanocobalamin (Vitamin B-12) 1,000 Mcg Tablet) 1,000 mcg PO DAILY [facility] Last Admin: 08/27/24 08:18 Dose: 1,000 mcg Documented By: HATTIE Folic Acid (Folic Acid 1 Mg Tablet) 1 mg PO DAILY [facility] Last Admin: 08/27/24 08:18 Dose: 1 mg Documented By: HATTIE Levothyroxine Sodium (Levothyroxine Sodium 50 Mcg Tablet) 50 mcg PO DAILY@0600 [facility] Last Admin: 08/27/24 05:31 Dose: 50 mcg Documented By: HO.[email or web address] Magnesium Hydroxide (Milk Of Magnesia 30 Ml Oral.Susp) 30 ml PO DAILY PRN PRN Reason: Constipation Melatonin (Melatonin 3 Mg Tablet) 6 mg PO BEDTIME PRN PRN Reason: Insomnia Non-Formulary Medication (Cyclosporine [Restasis Multidose]) 1 drop EYE-BOTH BID [facility] Ondansetron HCl (Ondansetron Hcl 4 Mg/2 Ml Vial) 4 mg IVPUSH Q8H PRN PRN Reason: Nausea and Vomiting Pantoprazole Sodium (Pantoprazole Sodium 40 Mg/10 Ml Vial) 40 mg IVPUSH BID@0630,1630 [facility] Last Admin: 08/27/24 05:31 Dose: 40 mg Documented By: KAITY Sodium Chloride (0.9 % Sodium Chloride Flush 3 Ml Syringe) 3 ml IVFLUSH QSHIFT [facility] Last Admin: 08/27/24 08:18 Dose: 3 ml Documented By: HATTIE Tramadol HCl (Tramadol Hcl 50 Mg Tablet) 50 mg PO BEDTIME PRN PRN Reason: Severe Pain (Scale Score 7-10) Vitamin D (Cholecalciferol (Vitamin D3) 25 Mcg Tablet) 25 mcg PO DAILY [facility] Last Admin: 08/27/24 08:18 Dose: 25 mcg Documented By: HATTIE Labs 08/27/24 06:00 08/27/24 06:00 Labs: Laboratory Results - last 24 hr 08/27/24 06:00 MCV 90.3 MCH 26.9 L MCHC 29.8 L RDW 19.9 H Plt Count 204 D MPV 12.7 H Absolute Nucleated RBC 0.030 H Nucleated RBC % (auto) 0.4 H Anion Gap 18 Estim Creat Clear Calc 6.8 Estimated GFR 7 Random Glucose 87 Calcium 11.0 H D Microbiology Microbiology Results: Microbiology 08/26/24 Unknown Urine Culture - Preliminary Urine clean catch - Clean Catch Midstream Culture too young to evaluate. 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 Pt will be admitted to the hospital for treatment and further evaluation of acute encephalopathy and dysarthria concerning for CVA and dark stools concerning for GIB. TIA improved back to baseline CT of head negative, MRI showing no acute findings but chronic microangiopathy Continue statin restart Aspirin after GI eval PT/OT consult passed bedside eval; follow w ENTERPRISE INTEGRATION DEVELOPER Monitor on telemetry Dark-colored stool with chronic anemia no active bleeding noticed Stool positive for occult blood H&H 7.7, close to baseline GI eval continue Protonix IV bid ESRD On HD //, last dialyzed Tuesday nephrology consult Follow lytes Hypothyroidism Continue levothyroxine Gout Continue allopurinol Full Code DVT Prophylaxis: Lovenox Pt will require a hospitalization overnight for treatment and further evaluation of dark-colored stools concerning for GIB on cardiac monitoring, monitoring of labs, and specialist consultation with GI Quality Stroke Does the patient have a stroke diagnosis?: No Reason for No Anti-thrombotic by Day Two: Contraindicated (Last known well time 4+ days ago, outside tNK window) VTE Prior VTE?: No VTE Risk Level:: Medical - moderate - high VTE Device Contraindication: N/A - Device Ordered VTE Drug Contraindication: Treatment Not Indicated
--- NOTE | 2024-08-27 12:46 | MHC.CM.PN ---
Per MD, Patient is medically cleared for dc to home with services, today. A referral has been made to NA, who has been made aware of today's dc. Last IMM was addressed yesterday.
--- NOTE | 2024-08-27 13:07 | W.MHC.F2F ---
Service Date Service Date: 08/27/24 Encounter Date of encounter: 08/27/24 Reasons for Services Signs and symptoms assessed: physical deconditioning Reason for physical therapy: home safety and mobility and therapeutic exercises Homebound: Leaving the home is medically contraindicated at this time without the asist of a device and/or another person due th the listed conditions above and below. Reason homebound: unsteady gait / fall risk and unable to drive Certification: Based on the above findings, I certify that this patient is confined to the home and needs intermittent senior care care, physical therapy and/or speech therapy, or continues to need occupational therapy. The patient is under my care, and I have initiated the establishment of the plan of care. The patient will be followed by a physician who will periodically review the plan of care. Time Spent With Patient Time: Total time managing care of this patient today ____ minutes.
--- NOTE | 2024-08-27 13:09 | P.DS_ITS ---
DS: Providers Provider Date of Service: 08/27/24 Date of admission: 08/25/24 12:31 Primary care physician: Adriane Higuera MD Consults: 08/25/24 12:37 Consult to Neurology Routine Consulting Provider: [facility] Reason for consultation: Confusion, dysarthria, ?CVA 08/25/24 12:40 Consult to Nephrology Routine Consulting Provider: [facility] 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 Pt has apparently been having difficulties performing normal ADLs such as signing his name x5 days, slurred speech x2 days, and hallucinating since 0200 this morning, seeing and speaking to people who were not in the room. Last night also had dark stool x4 episodes. At time of this interview and exam pt is alert and oriented to name, place, and time. Reports felt lightheaded and dizzy yesterday after dialysis and feels more weak than normal. Otherwise has no other acute medical c omplaints. Denies chest pain/pressure. No nausea, vomiting diarrhea, abdominal pain. Denies acid reflux. In the ED pt had soft BP of 120/53, vitals otherwise stable and WNL. Labs were significant for stool testing positive for occult blood, otherwise grossly unremarkable and around baseline for patient. Normocytic anemia of 7.8/26.1. Creatinine 4.48. CRP 6.06. Albumin 3.3. Electrolytes WNL. Initial troponin 27.0. Tested negative for flu, COVID, RSV. CXR showed stable chronic changes with no acute superimposed process. CT?of head negative for intracranial hemorrhage or mass effect. 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 EKG demonstrated sinus rhythm with first-degree AV block without significant ST elevations or depressions. Pt was treated with IV Protonix. Pt will be admitted to the hospital for treatment and further evaluation of acute encephalopathy and dysarthria concerning for CVA and dark stools concerning for GIB. Hospital course Encephalopathy, speech problem likely related to TIA which improved back to baseline soon after presentation as CT of head negative, MRI showing no acute findings but chronic microangiopathy. On statin, Aspirin after GI evaluation who recommended no intervention at this point. Started on Pantoprazole IV and will be discharged on PO Pantoprazole. Seen by PT/OT who recommended home PT vs SNF placement. Evaluated by BANK APPRAISER team who recommended NDD3 diet. Discussed with family and patient who decided to go home with PT. Dark-colored stool with chronic anemia with no active bleeding noticed. Stool positive for occult blood. H&H 7.7, close to baseline. GI evaluation recommended no intervention. started on Protonix IV bid. Pantoprazole PO as outpatient. for ESRD On HD M/W/, followed by nephrology. To continue dialysis as outpatient. Time Attestation Discharge Coordination Time (in mins): 38 Quality: Safe Use of Opioids Does Pt have an Active Cancer Diagnosis on the Problem List?: No Quality: Stroke Does the patient have a stroke diagnosis?: No Physical Exam Vital Signs: Vital Signs: Last Vital Signs Temp 97.6 F 08/27/24 07:43 Pulse 68 08/27/24 07:43 Resp 20 08/27/24 07:43 BP 148/72 H 08/27/24 07:43 Pulse Ox 97 08/27/24 07:43 O2 Del Method Room Air 08/27/24 07:43 BMI result Body Mass Index 25.3 Const: Other: Constitutional : Awake, interactive, not in distress Neck : Normal inspection, Supple Cardiovascular : RRR, no JVP, no lower extremity edema Respiratory : good bilateral air entry, no crackles, wheezes or rhonchi Gastrointestinal: soft, lax, Normal bowel sounds, Non tender Skin : Warm, Dry Neurological : Alert & oriented x3, mild left sided hemiparesis DS: Data Data Completed and Pending Completed studies during hospitalization [Text1]: Procedures Excision of Left Lower Arm Skin, External Approach (05/30/24) Insertion of Infusion Device into Superior Vena Cava, Percutaneous Approach (01/12/21) Insertion of Tunneled Vascular Access Device into Chest Subcutaneous Tissue and Fascia, Percutaneous Approach (01/12/21) Introduction of Anesthetic Agent into Peripheral Nerves and Plexi, Percutaneous Approach (05/30/24) Introduction of Vasopressor into Peripheral Vein, Percutaneous Approach (05/30/24) Performance of Urinary Filtration, Intermittent, Less than 6 Hours Per Day (05/30/24) Restriction of Left Cephalic Vein, Open Approach (05/30/24) Transfusion of Nonautologous Red Blood Cells into Peripheral Vein, Percutaneous Approach (05/30/24) Ultrasonography of Superior Vena Cava, Guidance (01/12/21) Labs on day of discharge: Laboratory Results - last 24 hr 08/27/24 06:00 WBC 7.4 RBC 2.90 L Hgb 7.8 L Hct 26.2 L MCV 90.3 MCH 26.9 L MCHC 29.8 L RDW 19.9 H Plt Count 204 D MPV 12.7 H Absolute Nucleated RBC 0.030 H Nucleated RBC % (auto) 0.4 H Sodium 140 Potassium 4.2 Chloride 99 Carbon Dioxide 27 Anion Gap 18 BUN 56 H Creatinine 7.65 H* Estim Creat Clear Calc 6.8 Estimated GFR 7 Random Glucose 87 Calcium 11.0 H D Preliminary micro results at discharge 08/26/24 Unknown Urine Culture - Preliminary Urine clean catch - Clean Catch Midstream Culture too young to evaluate. Imaging MRI - head: Radiologist's impression: ITS Impressions Chest X-Ray 08/25/24 09:27 IMPRESSION: Chronic changes as above. No acute superimposed process. Electronically signed by: David Sebastian MD 08/25/2024 10:40 AM EST RP Head CT 08/25/24 10:31 IMPRESSION: No intracranial hemorrhage or mass effect. Generalized atrophy and chronic small vessel white matter ischemic changes. IMPRESSION: No intracranial hemorrhage or mass effect. Generalized atrophy and chronic small-vessel white matter ischemic changes. Asymmetric prominence of the extra-axial space along the right parietal lobe which may represent a subdural hygroma. Electronically signed by: Lamont Avina MD 08/25/2024 11:00 AM EST RP Brain MRI 08/25/24 14:28 IMPRESSION: 1. No acute intracranial abnormalities. 2. Global cerebral volume loss and chronic microangiopathy. Electronically signed by: Suzette Mcgovern MD 08/25/2024 03:13 PM EST RP Discharge Plan Discharge Anticipated Discharge Date/Time: 08/27/24 13:05 Patient Disposition: Home Health Service Discharge Diagnosis: Encephalopathy , Dysarthria TIA Referrals: Rustam HESTER [Outside] - 1 Week Adriane Higuera MD [Primary Care Provider] - 1 Week Discharge Medications: New pantoprazole 40 mg tablet,delayed release (DR/EC) 40 mg PO DAILY Qty: 90 0RF Continued atorvastatin 80 mg tablet 80 mg PO BEDTIME allopurinol 100 mg tablet 100 mg PO DAILY aspirin 81 mg tablet,delayed release (DR/EC) 81 mg PO DAILY levothyroxine 50 mcg tablet 50 mcg PO DAILY@0600 omeprazole 20 mg capsule,delayed release(DR/EC) 20 mg PO DAILY@0630 cholecalciferol (vitamin D3) [Vitamin D3] 25 mcg (1,000 unit) Capsule 25 mcg PO DAILY folic acid 1 mg tablet 1 mg PO DAILY Qty: 30 0RF tramadol 50 mg tablet 50 mg PO BEDTIME PRN (Reason: Severe Pain (Scale Score 7-10)) cyanocobalamin (vitamin B-12) 1,000 mcg tablet 1,000 mcg PO DAILY Restasis MultiDose 0.05 % drops 1 drp ophthalmic (eye) BID Discharge Orders: Discharge Order (Routine); Ordered 08/27/24 Ordered By: Estefany Sargent Diet: Low salt diet Activity on Discharge: As tolerated Stand Alone Forms: Patient Portal Discharge page Print Language: Italian Care Plan Goals: Start Pantoprazole daily Cut down Tramadol use to as needed Continue Aspirin Dialysis as scheduled Health Concerns: Transient ischemic attack Plan of Treatment: Aspirin, Statin Start Pantoprazole Assessment: as needed
[2024-08-27 13:48] VITALS: BP 133/63; PULSE 72; RESP 20; TEMP 36.2; O2SAT 95
--- NOTE | 2024-08-27 15:36 | PM.CNNEP ---
History of Present Illness Reason for Consult Consult date: 08/27/24 Chief Complaint Chief complaint: confusion, dysarthria, dark stools History of Present Illness Narrative: [facility] consulted for HD management. 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?of head negative for intracranial hemorrhage or mass effect. 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 Review of Systems Review of Systems ROS unable to be obtained due to altered mental status Yes all other systems are reviewed and are negative PMFSH Past Medical History Medical History ESRD (end stage renal disease) CKD (chronic kidney disease) stage 5, GFR less than 15 ml/min MSSA bacteremia Dialysis patient COVID-19 vaccine administered Renal failure COPD (chronic obstructive pulmonary disease) Thyroid disease GERD (gastroesophageal reflux disease) Elevated cholesterol PVD (peripheral vascular disease) Prostate CA HTN (hypertension) Heart attack Surgical History Surgical History Hx of cataract surgery Hx of cystoscopy History of incision and drainage H/O colonoscopy Hx of aortic valve replacement Hx of CABG Social History Social History Household Members: None Household Members Other:: Lives with son.. Housing: Apartment Are you a primary medicare biller to a significant other at home: No Do you presently have visiting nurse or other home services: Yes (personalized living manager) Alcohol intake: never Comment: Surgeon informed that all counts were correct Patient Tobacco Use Status: Never used Tobacco Smoked in Last 30 Days: No Use of substances other than those prescribed or required for medical reasons: Unable to respond Currently Displaying Signs/Symptoms of Drug Intoxication Withdrawal: No Advance Directives: No Advance Directives Information Provided: Yes Do you have a plan to hurt others: No Plan Recently lost weight without trying: No How much weight loss: 2-13 pounds Eating poorly because of decreased appetite: No Nutrition screen score: 1 Nutrition Risks: Poor intake 0-25% >4 days Poor oral hygiene: No service: No Current occupational status: disabled Meds Allergies Allergy/AdvReac Type Severity Reaction Status Date / Time No Known Allergies Allergy Mild NONE Verified 08/25/24 09:32 Active Medications: Current Medications Acetaminophen (Acetaminophen 325 Mg Tablet) 650 mg PO Q6H PRN PRN Reason: Pain, Mild (Pain Scale 1-3), fever or headache Allopurinol (Allopurinol 100 Mg Tablet) 100 mg PO DAILY [facility] Last Admin: 08/27/24 08:18 Dose: 100 mg Atorvastatin Calcium (Atorvastatin Calcium 80 Mg Tablet) 80 mg PO BEDTIME [facility] Last Admin: 08/26/24 22:54 Dose: 80 mg Benzonatate (Benzonatate 100 Mg Capsule) 100 mg PO TID PRN PRN Reason: Cough Calcium Carbonate (Calcium Carbonate 750 Mg Tab.Chew) 750 mg PO Q4H PRN PRN Reason: Heartburn Cyanocobalamin (Cyanocobalamin (Vitamin B-12) 1,000 Mcg Tablet) 1,000 mcg PO DAILY [facility] Last Admin: 08/27/24 08:18 Dose: 1,000 mcg Folic Acid (Folic Acid 1 Mg Tablet) 1 mg PO DAILY [facility] Last Admin: 08/27/24 08:18 Dose: 1 mg Levothyroxine Sodium (Levothyroxine Sodium 50 Mcg Tablet) 50 mcg PO DAILY@0600 [facility] Last Admin: 08/27/24 05:31 Dose: 50 mcg Magnesium Hydroxide (Milk Of Magnesia 30 Ml Oral.Susp) 30 ml PO DAILY PRN PRN Reason: Constipation Melatonin (Melatonin 3 Mg Tablet) 6 mg PO BEDTIME PRN PRN Reason: Insomnia Non-Formulary Medication (Cyclosporine [Restasis Multidose]) 1 drop EYE-BOTH BID [facility] Ondansetron HCl (Ondansetron Hcl 4 Mg/2 Ml Vial) 4 mg IVPUSH Q8H PRN PRN Reason: Nausea and Vomiting Pantoprazole Sodium (Pantoprazole Sodium 40 Mg/10 Ml Vial) 40 mg IVPUSH BID@0630,1630 [facility] Last Admin: 08/27/24 05:31 Dose: 40 mg Sodium Chloride (0.9 % Sodium Chloride Flush 3 Ml Syringe) 3 ml IVFLUSH QSHIFT [facility] Last Admin: 08/27/24 08:18 Dose: 3 ml Tramadol HCl (Tramadol Hcl 50 Mg Tablet) 50 mg PO BEDTIME PRN PRN Reason: Severe Pain (Scale Score 7-10) Vitamin D (Cholecalciferol (Vitamin D3) 25 Mcg Tablet) 25 mcg PO DAILY [facility] Last Admin: 08/27/24 08:18 Dose: 25 mcg Home Medications ?Medication ?Instructions ?Recorded ?Confirmed ?Last Taken ?Type allopurinol 100 mg tablet 100 mg PO DAILY 12/30/20 08/25/24 06/28/23 History aspirin 81 mg tablet,delayed 81 mg PO DAILY 12/30/20 08/25/24 06/28/23 History release atorvastatin 80 mg tablet 80 mg PO BEDTIME 12/30/20 08/25/24 06/28/23 History cholecalciferol (vitamin D3) 25 25 mcg PO DAILY 12/30/20 08/25/24 06/28/23 History mcg (1,000 unit) capsule (Vitamin D3) levothyroxine 50 mcg tablet 50 mcg PO DAILY@0600 12/30/20 08/25/24 06/28/23 History omeprazole 20 mg capsule,delayed 20 mg PO DAILY@0630 12/30/20 08/25/24 06/28/23 History release cyanocobalamin (vitamin B-12) 1,000 mcg PO DAILY 06/10/23 08/25/24 06/28/23 History 1,000 mcg tablet cyclosporine 0.05 % eye drops 1 drp ophthalmic (eye) BID 06/10/23 08/25/24 06/28/23 History (Restasis MultiDose) tramadol 50 mg tablet 50 mg PO BEDTIME PRN Severe Pain 07/03/24 08/25/24 Unknown History (Scale Score 7-10) Physical Exam Vital Signs: Last Vital Signs Temp 97.1 F 08/27/24 13:48 Pulse 72 08/27/24 13:48 Resp 20 08/27/24 13:48 BP 133/63 08/27/24 13:48 Pulse Ox 95 08/27/24 13:48 O2 Del Method Room Air 08/27/24 13:48 BMI result Body Mass Index 25.3 Const Other: Constitutional : Awake, interactive, not in distress Neck : Normal inspection, Supple Cardiovascular : RRR, no JVP, no lower extremity edema Respiratory : good bilateral air entry, no crackles, wheezes or rhonchi Gastrointestinal: soft, lax, Normal bowel sounds, Non tender Skin : Warm, Dry Neurological : Alert & oriented x3, mild left sided hemiparesis Results Lab Results 08/27/24 06:00 08/27/24 06:00 Lab results: Chemistry 08/25/24 08/26/24 08/27/24 09:50 08:14 06:00 Sodium 143 143 140 Potassium 3.9 4.0 4.2 Carbon Dioxide 28 33 H 27 BUN 32 H 44 H 56 H Creatinine 4.48 H* 5.67 H* 7.65 H* Calcium 10.5 H D 9.9 11.0 H D Hematology 08/25/24 08/26/24 08/27/24 09:50 08:14 06:00 WBC 6.4 6.6 7.4 Hgb 7.8 L 7.7 L 7.8 L Plt Count 143 L D 141 L 204 D Urinalysis 08/26/24 11:05 Urine Color Yellow Urine Appearance Cloudy Urine pH >= 9.0 Ur Specific [place] 1.010 Urine Protein 100 (2+) H Urine Glucose (UA) Negative Urine Ketones Negative Urine Blood Negative Urine Nitrite Negative Ur Leukocyte Esterase Small (1+) H Urine RBC 0-2 Urine WBC 0-5 Ur Squamous Epith Cells 3-5 Hyaline Casts 0-2 Assessment and Plan (1) Encephalopathy acute: Status: Acute (2) ESRD (end stage renal disease): Status: Acute (3) Anemia: Qualifiers: Anemia type: unspecified type Qualified Code(s): D64.9 - Anemia, unspecified Status: Acute (4) Dysarthria: Status: Acute (5) Melena: Status: Acute Plan ESRD: HD today and cont mwf Nephrogenic anemia: cont EPO and Fe as per protoocl AMS: improved MBD of CKD REC: HD today and then ? d/c home vs Rehab--looks johnny his son is very invovled and he is to get d/c home Addedum: PT seen on HD via AV[facility]--tolerasted well Procedures Date of Service Date of Service: 08/27/24
[2024-08-27 15:37] VITALS: BP 155/70; PULSE 71; RESP 21; TEMP 36.2; O2SAT 94
== END 2024-08-27 16:30 | disposition home health service (06) | DRG 69 ==
LOC: HO.ED 11:13 → HO.EDOVER 12:41 → HO.IMC 14:51
PROVIDERS: Admitting Provider Student in an Organized Health Care Education/Training Program; Emergency Provider Emergency Medicine; PCP Family Medicine; Visit Provider Student in an Organized Health Care Education/Training Program
DX: G45.9 Transient cerebral ischemic attack, unspecified (principal); N18.6 End stage renal disease; I69.354 Hemiplegia and hemiparesis following cerebral infarction affecting left non-dominant side; G93.49 Other encephalopathy; G96.00 Cerebrospinal fluid leak, unspecified; I44.0 Atrioventricular block, first degree; R19.5 Other fecal abnormalities; E03.9 Hypothyroidism, unspecified; M10.9 Gout, unspecified; D63.1 Anemia in chronic kidney disease; N25.0 Renal osteodystrophy; Z20.822 Contact with and (suspected) exposure to COVID-19; Z79.82 Long term (current) use of aspirin; Z79.890 Hormone replacement therapy; Z79.899 Other long term (current) drug therapy
CPT/HCPCS: 0241U; 36415; 70450; 70551; 71045; 80048; 80061; 80076; 81001; 82140; 82272; 82803; 83735; 84484; 85025; 85027; 85610; 85730; 86140; 86850; 86900; 86901; 87086; 90999; 92610; 93005; 97162; 97166; 99285; J2470; J7120

== ENCOUNTER → 2024-08-25 09:27 | Outpatient (BNV) | payer OTHER, SELFPAY | PROVIDERS: Admitting Provider Student in an Organized Health Care Education/Training Program; Emergency Provider Emergency Medicine; PCP Family Medicine; Visit Provider Internal Medicine Cardiovascular Disease | DX: R53.1 Weakness (principal); I44.0 Atrioventricular block, first degree | CPT/HCPCS: 93010 ==

== ENCOUNTER → 2024-08-25 12:31 | Outpatient (BNV) | payer OTHER, SELFPAY | PROVIDERS: Admitting Provider Student in an Organized Health Care Education/Training Program; Emergency Provider Emergency Medicine; PCP Family Medicine; Visit Provider Student in an Organized Health Care Education/Training Program | DX: G93.40 Encephalopathy, unspecified (principal); N18.6 End stage renal disease; D64.9 Anemia, unspecified; R47.1 Dysarthria and anarthria | CPT/HCPCS: 99223; 99232; 99239; G0180 ==

== ENCOUNTER → 2024-08-25 12:31 | Outpatient (BNV) | payer OTHER, SELFPAY | PROVIDERS: Admitting Provider Student in an Organized Health Care Education/Training Program; Emergency Provider Emergency Medicine; PCP Family Medicine; Visit Provider Internal Medicine | DX: G93.40 Encephalopathy, unspecified (principal); N18.6 End stage renal disease; D64.9 Anemia, unspecified | CPT/HCPCS: 99222 ==

== ENCOUNTER 2024-09-18 15:33 | Outpatient (REF) | payer OTHER, SELFPAY ==
[2024-09-18 17:01] LABS: Cholesterol 157 mg/dL (<200); HDL Cholesterol 40 mg/dL (>40); LDL Cholesterol Calculated 97 mg/dL (<100); Triglycerides 103 mg/dL (<150)
[2024-09-18 17:05] LABS: Reflex LDLD? No
[2024-09-18 17:18] LABS: TSH reflex Free T4 3.85 uIU/mL (0.32-4.0)
== END 2024-09-18 15:34 | disposition home or self-care (01) ==
LOC: HO.HHCL 15:33
PROVIDERS: Visit Provider Family Medicine
DX: E11.22 Type 2 diabetes mellitus with diabetic chronic kidney disease (principal); N18.6 End stage renal disease; E03.9 Hypothyroidism, unspecified; E78.5 Hyperlipidemia, unspecified; Z99.2 Dependence on renal dialysis
CPT/HCPCS: 36415; 80061; 84443

== ENCOUNTER 2024-12-04 13:58 | Inpatient (IN) | payer OTHER, SELFPAY ==
--- NOTE | ~2024-12-04 | CT_ITS ---
EXAMINATION: CT ABDOMEN PELVIS WITHOUT IV CONTRAST HISTORY: abd pain, melena, ESRD. COMPARISON: Comparison is made with the prior examination dated 06/03/2024. TECHNIQUE: CT scan of the abdomen and pelvis was performed without contrast using standard departmental protocol. Coronal and sagittal reformatted images were generated and reviewed. Oral contrast material was not administered at the request of the referring physician. This CT exam was performed with one or more of the following dose reduction techniques: automated exposure control, adjustment of the mA and/or kV according to patient size, use of iterative reconstruction technique. DLP: 478 mGy-cm FINDINGS: LOWER CHEST: The visualized lung bases are clear. There is no pleural effusion. CARDIOVASCULATURE: The heart is enlarged. There is no pericardial effusion. LIVER: The liver is normal in size and contour. The liver has an unremarkable unenhanced appearance. GALLBLADDER / BILE DUCTS: There are multiple calculi in the gallbladder. No pericholecystic inflammatory changes are identified. There is no intra or extrahepatic biliary ductal dilatation. SPLEEN: The spleen is normal in size and has an unremarkable unenhanced appearance. PANCREAS: The pancreas has an unremarkable unenhanced appearance. ADRENAL GLANDS: Unremarkable. KIDNEYS/RETROPERITONEUM: The kidneys are markedly atrophic. There is a 1.5 cm cyst at the upper pole of the right kidney and a 1.1 cm cyst at the upper pole of the left kidney. LYMPH NODES: No retroperitoneal lymphadenopathy is identified in the abdomen or pelvis. VASCULATURE: Again seen is aneurysmal dilatation of the abdominal aorta measuring up to 5.3 cm in diameter. MESENTERY/PERITONEUM: No free fluid. No masses. There is no free intraperitoneal gas. STOMACH: There is a small hiatal hernia. The stomach is collapsed, limiting evaluation. SMALL BOWEL: The small bowel is normal in caliber. COLON: There is diffuse colonic diverticulosis, without evidence of diverticulitis. APPENDIX: Normal. URINARY BLADDER/PELVIC ORGANS: The urinary bladder is collapsed, limiting evaluation. The prostate is normal in size. BONES / SOFT TISSUES: There is degenerative disc disease of the spine. CT/CT abdomen pelvis wo IV con IMPRESSION: 1. Colonic diverticulosis without evidence of diverticulitis. 2. Cholelithiasis. 3. 5.3 cm abdominal aortic aneurysm without significant change. Electronically signed by: Theodore Hassan MD 12/04/2024 03:30 PM [facility]
--- NOTE | ~2024-12-04 | XR_ITS ---
EXAMINATION: XR CHEST CLINICAL INFORMATION: Abdominal pain COMPARISON: August 25, 2024. TECHNIQUE: Frontal view of the chest was obtained. FINDINGS: Indistinct pulmonary margins of the perihilar regions. Cardiomediastinal silhouette overlaps the left hemithorax. The thoracic aortic arch measures 7 cm in maximum diameter. There is stent overlapping the thoracic aortic arch, new since prior exam. Sternal wires and multiple vascular clips in the mediastinum, unchanged. Blunting of the left costophrenic angle. No pneumothorax.. Osteopenia versus osteoporosis. Degenerative changes in the right shoulder suggesting rotator cuff tendon tear, chronic. XR/XR chest 1V IMPRESSION: Pulmonary edema and left-sided Moderate volume pleural effusion. 7 cm thoracic aortic aneurysm and questionable status post stenting. Recommend CT angiography thoracic aorta. Electronically signed by: Kailash Mcclain MD 12/04/2024 02:59 PM EST
--- NOTE | 2024-12-04 14:08 | ECG_ITS ---
Test Reason : abd pain Blood Pressure : */* mmHG Vent. Rate : 70 BPM Atrial Rate : 70 BPM P-R Int : 188 ms QRS Dur : 88 ms QT Int : 392 ms P-R-T Axes : 64 65 79 degrees QTcB Int : 423 ms Normal sinus rhythm Normal ECG When compared with ECG of 25-Aug-2024 10:26, MD interval has decreased Referred By: Rhea Riley Electronically Signed By: Alonzo Quintana
[2024-12-04 14:12] VITALS: BP 180/50; PULSE 65; O2SAT 100
--- NOTE | 2024-12-04 14:20 | ED.ABDPAIN ---
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 Riley HPI narrative: 84-year-old male brought in by EMS for evaluation of abdominal pain, nausea, vomiting, and black diarrhea, for 5 days. 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 Patient with history of stroke as per his caregiver patient is at his neurological baseline Related Data Home Medications ?Medication ?Instructions ?Recorded ?Confirmed allopurinol 100 mg tablet 100 mg PO DAILY 12/30/20 08/25/24 aspirin 81 mg tablet,delayed 81 mg PO DAILY 12/30/20 08/25/24 release atorvastatin 80 mg tablet 80 mg PO BEDTIME 12/30/20 08/25/24 cholecalciferol (vitamin D3) 25 25 mcg PO DAILY 12/30/20 08/25/24 mcg (1,000 unit) capsule (Vitamin D3) levothyroxine 50 mcg tablet 50 mcg PO DAILY@0600 12/30/20 08/25/24 omeprazole 20 mg capsule,delayed 20 mg PO DAILY@0630 12/30/20 08/25/24 release cyanocobalamin (vitamin B-12) 1,000 mcg PO DAILY 06/10/23 08/25/24 1,000 mcg tablet cyclosporine 0.05 % eye drops 1 drp ophthalmic (eye) BID 06/10/23 08/25/24 (Restasis MultiDose) tramadol 50 mg tablet 50 mg PO BEDTIME PRN Severe Pain 07/03/24 08/25/24 (Scale Score 7-10) Previous Rx's ?Medication ?Instructions ?Recorded folic acid 1 mg tablet 1 mg PO DAILY #30 tabs 01/16/21 pantoprazole 40 mg tablet,delayed 40 mg PO DAILY #90 tabs 08/27/24 release Allergies Allergy/AdvReac Type Severity Reaction Status Date / Time No Known Allergies Allergy Mild NONE Verified 12/04/24 14:39 Review of Systems Review of Systems All other systems are reviewed and are negative Constitutional: Reports as per HPI and Reports no additional constitutional complaints Eyes: Reports as per HPI and Reports no additional eye complaints Reports system reviewed and no additional complaints, except as documented Cardiovascular: Reports as per HPI and Reports no additional cardiovascular complaints Respiratory: Reports as per HPI and Reports no additional respiratory complaints Gastrointestinal: Reports as per HPI and Reports no additional gastrointestinal complaints Genitourinary: Reports no additional female genitourinary complaints Musculoskeletal: Reports no additional musculoskeletal complaints Skin/Breast: Reports system reviewed and no additional complaints, except as docu Psychiatric: Reports no additional psychiatric complaints Endocrine: Reports no additional endocrine complaints Hematologic/Lymphatic: Reports no additional hematologic/lymphatic complaints Allergic/Immunologic: Reports no additional allergic/immunologic complaints Reports system reviewed and no additional complaints, except as documented and Reports Abnormal speech present PMFSH Past Medical History Medical History Anemia ESRD (end stage renal disease) CKD (chronic kidney disease) stage 5, GFR less than 15 ml/min MSSA bacteremia Dialysis patient COVID-19 vaccine administered Renal failure COPD (chronic obstructive pulmonary disease) Thyroid disease GERD (gastroesophageal reflux disease) Elevated cholesterol PVD (peripheral vascular disease) Prostate CA HTN (hypertension) Heart attack Surgical History Hx of cataract surgery Hx of cystoscopy History of incision and drainage H/O colonoscopy Hx of aortic valve replacement Hx of CABG Social History Social History Household Members: None Household Members Other:: Lives with son.. Housing: Apartment Are you a primary floor care specialist to a significant other at home: No Do you presently have visiting nurse or other home services: Yes (derrick car operator) Alcohol intake: never Comment: Surgeon informed that all counts were correct Patient Tobacco Use Status: Never used Tobacco Advance Directives: Yes Advance Directives Information Provided: Yes Advance Directives on File: No Do you have a plan to hurt others: No Plan service: No Current occupational status: disabled Physical Exam ED Vital Signs: Vital Signs - 24 hr 12/04/24 14:38 Temperature 97.2 F Pulse Rate 72 Respiratory Rate 14 Blood Pressure 153/71 H Pulse Oximetry 95 Oxygen Delivery Method Room Air BMI result Body Mass Index 22.3 Vital signs have been reviewed and appear to be correct. Blood pressure elevated. Heart rate normal. Respiratory rate normal. Temperature normal. Oxygen saturation normal. Appearance: Alert. Oriented X3. No acute distress. Head: Normal external exam. Normocephalic. Atraumatic. No Voss signs noted. No raccoon eyes noted Eyes: PERRLA. EOMI. Conjunctiva and sclera normal. Eyelids normal. ENT: TM's Normal. Pharynx normal. Uvula midline. Moist mucous membranes. No trismus noted. No drooling noted. No muffled voice noted. Neck: Normal inspection. Neck supple. FROM. No adenopathy. Thyroid Normal. No meningeal signs. No neck mass noted. CVS: Normal heart rate and rhythm. Heart sound normal. No murmurs noted. Pulses normal throughout. Respiratory: No respiratory distress. Painless inspiration. Breath sounds normal. No wheezes/rales/rhonchi noted. Chest nontender. No accessory muscle usage noted or decreased air movement noted. Abdomen: Soft and nontender. Bowel sounds normal in all 4 quadrants. No distention noted. No organomegaly noted. No visible injury noted. Rectal exam: Soft stool, black in color, guaiac is positive for blood. Back: No CVA tenderness. Full range of motion noted. Skin: Skin warm and dry. Normal skin color. Normal skin turgor. No rashes/lesions/lacerations noted. Extremities: No lower extremity edema. Extremities exhibit normal range of motion. Extremities nontender. Neuro: Oriented X 3. Cranial nerve exam: II-XII are grossly intact No motor deficit. No sensory deficit. Reflexes normal. Course Reevaluation(s) Reevaluation #1: 84-year-old male in no anticoagulation therapy came in for 5 days of abdominal pain, vomiting and black stool x1 day. Hemodynamically stable, H&H are stable. Will administer PPI and admit to the hospital. Time: 17:38 Medical Decision Making Differential Diagnosis Differential Diagnoses: The differential diagnosis associated with the presentation includes (Severe anemia, electrolyte derangement, melena, hypotension, colitis, diverticular disease.) Lab Data MDM Lab Attestation statement: I reviewed the patient's lab results. 12/04/24 14:31 02/25/25 14:31 Labs: Lab Results 12/04/24 12/04/24 Range/Units 14:30 14:31 WBC 6.4 (4.8-10.8) X10*3/uL RBC 3.94 L D (4.60-5.80) X10*6/uL Hgb 10.5 L D (14.0-18.0) g/dl Hct 34.5 L D (42.0-52.0) % MCV 87.6 (80.0-98.0) fL MCH 26.6 L (27.0-33.0) pg MCHC 30.4 L (31.0-36.0) g/dl RDW 18.2 H (11.0-16.0) % Plt Count 101 L D (160-400) X10*3/uL MPV Not Reportable Immature Gran % (Auto) 0.6 H (0.0-0.4) % Neut % (Auto) 58.0 (45-73) % Lymph % (Auto) 31.0 (20-40) % [place] % (Auto) 9.0 (2-11) % Eos % (Auto) 0.6 (0-4) % Baso % (Auto) 0.8 (0-2) % Lymph # (Auto) 2.0 (1.2-4.9) X10*3/uL [place] # (Auto) 0.6 (0.1-1.2) X10*3/uL Eos # (Auto) 0.0 (0.0-0.4) X10*3/uL Baso # (Auto) 0.1 (0.0-0.2) X10*3/uL Abs Immat Gran (auto) 0.04 H (0.00-0.03) X10*3/uL Absolute Neuts (auto) 3.7 (2.0-8.3) x10*3/uL Absolute Nucleated RBC 0.000 (0.0-0.012) X10*3/uL Nucleated RBC % (auto) 0.0 (0.0-0.2) /100WBC Sodium 142 (135-145) mmol/L Potassium 4.9 (3.3-5.1) mmol/L Chloride 101 (96-108) mmol/L Carbon Dioxide 28 (22-29) mmol/L Anion Gap 18 (12-20) BUN 42 H (9-16) mg/dL Creatinine 5.04 H* (0.5-1.4) mg/dL Estim Creat Clear Calc 10.7 Estimated GFR 11 Random Glucose 91 (60-115) mg/dL Calcium 10.8 H (8.4-10.2) mg/dL Total Bilirubin 0.6 (0.0-1.0) mg/dL Direct Bilirubin 0.2 (0.0-0.5) mg/dL AST 43 H (5-37) U/L ALT 15 (0-40) U/L Alkaline Phosphatase 88 (39-117) U/L Troponin I High Sens 33.8 (<3.5-35.0) ng/L B-Natriuretic Peptide 285 H (<100) pg/mL Total Protein 7.5 (6.5-8.0) g/dL Albumin 3.5 (3.5-5.0) g/dL Lipase 132 H (8-78) U/L Stool Occult Blood POSITIVE (NEGATIVE) Influenza Type A (PCR) NEGATIVE (Negative) Influenza Type B (PCR) NEGATIVE (Negative) RSV RNA Qual (PCR) NEGATIVE (Negative) SARS-CoV-2 RNA (RT-PCR) NEGATIVE (Negative) Blood Type A Positive Antibody Screen NEGATIVE Independent Interpretation I performed an independent interpretation of an: CT Scan (Abdomen and pelvis:1. The G-tube is positioned normally within the gastric antrum. There is no extravasation of contrast. 2. Extensive tree in bud opacities throughout the imaged right lower lung, consistent with endobronchial spread of infection/pneumonia. 3. Wall thickening of the descending and) Radiology Impression Discussion of test interpretation with radiology: I have reviewed the radiologist's reading. Medications Administered Discontinued Medications Generic Name Dose Route Start Last Admin Trade Name Freq PRN Reason Stop Dose Admin Sodium Chloride 1,000 mls @ 999 mls/hr 12/04/24 14:07 12/04/24 14:42 Ns IV 12/04/24 15:07 999 mls/hr .[id number] ONE Administration Discharge Plan Discharge Clinical Impression: Rectal bleed, Melena Patient Disposition: Admitted As Inpatient Print Language: Frisian
[2024-12-04 14:37] LABS: MANUAL DIFF FLAG NO
[2024-12-04 14:38] VITALS: BP 153/71; PULSE 72; RESP 14; TEMP 36.2; O2SAT 95; BMI 22.3
[2024-12-04 14:40] LABS: OBS Int Ctl Valid YES; OBS1 POSITIVE (NEGATIVE)
[2024-12-04] MEDS: 0.9 % Sodium Chloride 1,000 ML 999 ML IV (14:42)
[2024-12-04 14:45] LABS: Basophils Absolute Auto 0.1 X10*3/uL (0.0-0.2); Basophils Percent Auto 0.8 % (0-2); Eosinophils Percent Auto 0.6 % (0-4); Hematocrit 34.5 % (42.0-52.0); Hemoglobin 10.5 g/dl (14.0-18.0); Imm Gran Abs Auto 0.04 X10*3/uL (0.00-0.03); Imm Gran Pct Auto 0.6 % (0.0-0.4); Mean Corpuscular HGB Conc 30.4 g/dl (31.0-36.0); Mean Corpuscular Hemoglobin 26.6 pg (27.0-33.0); Mean Corpuscular Volume 87.6 fL (80.0-98.0); Monocytes Absolute Auto 0.6 X10*3/uL (0.1-1.2); Neutrophils Absolute Auto 3.7 x10*3/uL (2.0-8.3); Platelet Count 101 X10*3/uL (160-400); Red Blood Count 3.94 X10*6/uL (4.60-5.80); Red Cell Distribution Width 18.2 % (11.0-16.0)
[2024-12-04 14:47] LABS: White Blood Count 6.4 X10*3/uL (4.8-10.8)
[2024-12-04 14:57] LABS: Troponin-I High Sensitivity 33.8 ng/L (<3.5-35.0)
[2024-12-04 14:58] LABS: B Type Natriuretic Peptide 285 pg/mL (<100)
[2024-12-04 15:06] LABS: Alanine Aminotransferase 15 U/L (0-40); Albumin Level 3.5 g/dL (3.5-5.0); Anion Gap 18 (12-20); Aspartate Amino Transferase 43 U/L (5-37); Bilirubin Direct 0.2 mg/dL (0.0-0.5); Bilirubin Total 0.6 mg/dL (0.0-1.0); Blood Urea Nitrogen 42 mg/dL (9-16); Calcium 10.8 mg/dL (8.4-10.2); Carbon Dioxide 28 mmol/L (22-29); Chloride 101 mmol/L (96-108); Creatinine Clr Calc Pharmacy 10.7; Estimated Glomerular Filt Rate 11; Glucose Random 91 mg/dL (60-115); Lipase 132 U/L (8-78); Potassium 4.9 mmol/L (3.3-5.1); Sodium 142 mmol/L (135-145); Total Protein 7.5 g/dL (6.5-8.0)
[2024-12-04 15:31] LABS: Influenza A PCR NEGATIVE (Negative); Influenza B PCR NEGATIVE (Negative); Resp Syncy Virus RNA Qual PCR NEGATIVE (Negative); SARS COV2 PCR INHOUSE NEGATIVE (Negative)
[2024-12-04 16:31] LABS: Alkaline Phosphatase 88 U/L (39-117)
[2024-12-04 18:16] VITALS: BP 163/68; PULSE 68; RESP 18; TEMP 37; O2SAT 96
[2024-12-04] MEDS: Morphine Sulfate 2 MG/ML CARTRIDGE 1 MG IVPUSH (18:32)
[2024-12-04] MEDS: Pantoprazole Sodium 40 MG/10 ML VIAL 80 MG IVPUSH (18:34)
[2024-12-04] MEDS: Magnesium Hydrox/Alum Hydrox 30 ML ORAL.SUSP PO (18:34)
--- OUTSIDE RECORDS SUMMARY | 2024-12-04 18:45 | XMS_ITS | Encounter Summary ---
Author Organization [employer] Address [address] [place] [address] Care Team Providers Care Recoating Machine Operator Name Role Phone Adriane Higuera MD Primary Care Provider [phone] Encounter Details Date Type Department Care Team (Late st Contact Info) Description 12/04/2024 Orders Only [facility] External Provider, [facility] Social History Tobacco Use Types Packs/Day Years Used Date Smoking Tobacco: Former Cigarettes Passive Smoke Exposure: Never Smokeless Tobacco: Never Depression Answer Date Recorded Patient Health Questionnaire-9 Score 0 11/13/2024 Patient Health Questionnaire-9 Score 0 11/13/2024 Last PHQ-9: Questionnaire Data Not on file 0 11/13/2024 Housing Stability Answer Date Recorded What is your housing situation today? I have nithya holcomb 02/21/[address] you li ve. Do you have problems with any of the following? None of the above 02/21/2024 Food Insecurity Answer Date Recorded Within the past 12 months, y ou worried that your food would run out before you got money to buy more: Never True 02/21/2024 Within the past 12 months,th e food you bought just didn't last and you didn't have enough money to get more: Never True Transportation Answer Date Recorded In the past 12 months, has l ack of transportation kept you from medical appts, meetings, work or from getting things needed for daily living? No 02/21/2024 Utilities Answer Date Recorded In the past 12 months, has t he electric, gas, oil or water company threatened to shut off services in your home? No 02/21/2024 Depression Answer Date Recorded Patient Health Questionnaire-2 Score 0 11/13/2024 Sex and Gender Information Value Date Recorded Sex Assigned at Male 08/09/2022 10:15 AM EDT Legal Sex Male 10:15 AM EDT Gender Identity Male 02/01/2023 3:20 PM EDT Sexual Orientation Don't know 08/09/2022 10 :15 AM EDT documented as of this encounter Plan of Treatment Not on file documented as of this encounter Procedures Procedure Name Priority Date/Time Associated Diagnosis Comments CT ABDOMEN PELVIS WO CONTRAST Routine 12/04/2024 3:01 PM EST XR CHEST 1 VIEW Routine 12/04/2024 2:08 PM EST documented in this encounter Results * CT Abdomen Pelvis w/o Contrast (12/04/2024 3:01 PM EST) Anatomical Region Laterality Modality Body, Pelvis, Abdomen Computed T omography 12/04/2024 3:01 PM EST Narrative 12/04/2024 3:33 PM EST ? [facility] ?[address] ?[place] [address] ? CT Scan Report ? Signed ? Patient: Bi Forrest ?MR# ?? : [id number] ? : 1940 ?Acct:[id number] ? Age/Sex: 84 / M ?ADM Date: 12/04/24 ? Loc: HO.ED ? Attending Dr: ? Ordering Physician: Rhea Riley MD ?? Date of Service: 12/04/24 ?? Procedure(s): CT abdomen pelvis wo IV con ?? Accession Number(s): [id number] ? cc: Rhea Riley MD; Adriane Higuera MD ? Report Number: ?? [id number]: Total DLP = ??478.00 mGy-cm ?? EXAMINATION: ??CT ABDOMEN PELVIS WITHOUT IV CONTRAST ? HISTORY: abd pain, melena, ESRD. ? COMPARISON: Comparison is made with the prior examination dated ?? 06/03/2024. ? TECHNIQUE: CT scan of the abdomen and pelvis was performed without ?? contrast using standard departmental protocol. ?? Coronal and sagittal ?? reformatted images were generated and reviewed. ??Oral contrast material ?? was not administered at the request of the referring physician. ? This CT exam was performed with one or more of the following dose ?? reduction techniques: automated exposure control, adjustment of the mA ?? and/or kV according to patient size, use of iterative reconstruction ?? technique. ? DLP: 478 mGy-cm ? FINDINGS: ? LOWER CHEST: The visualized lung bases are clear. There is no pleural ?? effusion. ? CARDIOVASCULATURE: The heart is enlarged. ??There is no pericardial ?? effusion. ? LIVER: ??The liver is normal in size and contour. ??The liver has an ?? unremarkable unenhanced appearance. ? GALLBLADDER / BILE DUCTS: ??There are multiple calculi in the ?? gallbladder. No pericholecystic inflammatory changes are identified. ?? There is no intra or extrahepatic biliary ductal dilatation. ? SPLEEN: The spleen is normal in size and has an unremarkable unenhanced ?? appearance. ? PANCREAS: The pancreas has an unremarkable unenhanced appearance. ? ADRENAL GLANDS: Unremarkable. ? KIDNEYS/RETROPERITONEUM: The kidneys are markedly atrophic. There is a ?? 1.5 cm cyst at the upper pole of the right kidney and a 1.1 cm cyst at ?? the upper pole of the left kidney. ? LYMPH NODES: ??No retroperitoneal lymphadenopathy is identified in the ?? abdomen or pelvis. ? VASCULATURE: ??Again seen is aneurysmal dilatation of the abdominal ?? aorta measuring up to 5.3 cm in diameter. ? MESENTERY/PERITONEUM: No free fluid. No masses. ??There is no free ?? intraperitoneal gas. ? STOMACH: ??There is a small hiatal hernia. The stomach is collapsed, ?? limiting evaluation. ? SMALL BOWEL: ?? The small bowel is normal in caliber. ? COLON: ??There is diffuse colonic diverticulosis, without evidence of ?? diverticulitis. ? APPENDIX: ??Normal. ? URINARY BLADDER/PELVIC ORGANS: The urinary bladder is collapsed, ?? limiting evaluation. ??The prostate is normal in size. ? BONES / SOFT TISSUES: ??There is degenerative disc disease of the spine. ? CT/CT abdomen pelvis wo IV con ?? IMPRESSION: ? 1. Colonic diverticulosis without evidence of diverticulitis. ? 2. Cholelithiasis. ? 3. 5.3 cm abdominal aortic aneurysm without significant change. ? Electronically signed by: ??Theodore Hassan MD ??12/04/2024 03:30 PM EST ?? RP ? Dictated By: ?Theodore Hassan MD ? Signed By: ?<Electronically signed by Theodore Hassan MD in OV> ?12/04/24 1530 ? DD/ 1501 ? TD/TT: 12/04/24 1516 ? Deburr Operator: ? Procedure Note Donotuseinterpreter, Image - 12/04/[address] [place] [address] [address] Scan Report Signed Patient: Ramonita ForrestysMR# : [id number] : 9Acct:[id number] Age/Sex: 84 / MADM Date: 12/04/24 Loc: HO.ED Attending Dr: Ordering Physician: Rhea Riley MD Date of Service: 12/04/24 Procedure(s): CT abdomen pelvis wo IV con Accession Number(s): [id number] cc: Rhea Riley MD; Adriane Higuera MD Report Number: [id number]: Total DLP = 478.00 mGy-cm EXAMINATION: CT ABDOMEN PELVIS WITHOUT IV CONTRAST HISTORY: abd pain, melena, ESRD. COMPARISON: Comparison is made with the prior examination dated 06/03/2024. TECHNIQUE: CT scan of the abdomen and pelvis was performed without contrast using standard departmental protocol. Coronal and sagittal reformatted images were generated and reviewed. Oral contrast material was not administered at the request of the referring physician. This CT exam was performed with one or more of the following dose reduction techniques: automated exposure control, adjustment of the mA and/or kV according to patient size, use of iterative reconstruction technique. DLP: 478 mGy-cm FINDINGS: LOWER CHEST: The visualized lung bases are clear. There is no pleural effusion. CARDIOVASCULATURE: The heart is enlarged. There is no pericardial effusion. LIVER: The liver is normal in size and contour. The liver has an unremarkable unenhanced appearance. GALLBLADDER / BILE DUCTS: There are multiple calculi in the gallbladder. No pericholecystic inflammatory changes are identified. There is no intra or extrahepatic biliary ductal dilatation. SPLEEN: The spleen is normal in size and has an unremarkable unenhanced appearance. PANCREAS: The pancreas has an unremarkable unenhanced appearance. ADRENAL GLANDS: Unremarkable. KIDNEYS/RETROPERITONEUM: The kidneys are markedly atrophic. There is a 1.5 cm cyst at the upper pole of the right kidney and a 1.1 cm cyst at the upper pole of the left kidney. LYMPH NODES: No retroperitoneal lymphadenopathy is identified in the abdomen or pelvis. VASCULATURE: Again seen is aneurysmal dilatation of the abdominal aorta measuring up to 5.3 cm in diameter. MESENTERY/PERITONEUM: No free fluid. No masses. There is no free intraperitoneal gas. STOMACH: There is a small hiatal hernia. The stomach is collapsed, limiting evaluation. SMALL BOWEL: The small bowel is normal in caliber. COLON: There is diffuse colonic diverticulosis, without evidence of diverticulitis. APPENDIX: Normal. URINARY BLADDER/PELVIC ORGANS: The urinary bladder is collapsed, limiting evaluation. The prostate is normal in size. BONES / SOFT TISSUES: There is degenerative disc disease of the spine. CT/CT abdomen pelvis wo IV con IMPRESSION: 1. Colonic diverticulosis without evidence of diverticulitis. 2. Cholelithiasis. 3. 5.3 cm abdominal aortic aneurysm without significant change. Electronically signed by: Theodore Hassan MD 12/04/2024 03:30 PM EST Dictated By: Theodore Hassan MD Signed By: <Electronically signed by Theodore Hassan MD in OV> 12/04/24 1530 DD/ 1501 TD/TT: 12/04/24 1516 Deburr Operator: us [facility] External Provider IMG CT PROCEDURES Final Result * XR Chest 1 View (12/04/2024 2:08 PM EST) Anatomical Region Laterality Modality Chest Radiographic Loren ging 12/04/2024 2:08 PM EST Narrative 12/04/2024 3:02 PM EST ? [facility] ?[address] ?[place] [address] ?XRay Report ? Signed ? Patient: Bi Forrest ?MR# ?? : [id number] ? : 1940 ?Acct:[id number] ? Age/Sex: 84 / M ?ADM Date: 12/04/24 ? Loc: HO.ED ? Attending Dr: ? Ordering Physician: Rhea Riley MD ?? Date of Service: 12/04/24 ?? Procedure(s): XR chest 1V ?? Accession Number(s): [id number] ? cc: Rhea Riley MD; Adriane Higuera MD ? EXAMINATION: ?? XR CHEST ? CLINICAL INFORMATION: ?? Abdominal pain ? COMPARISON: ?? August 25, 2024. ? TECHNIQUE: ?? Frontal view of the chest was obtained. ? FINDINGS: ?? Indistinct pulmonary margins of the perihilar regions. ?? Cardiomediastinal silhouette overlaps the left hemithorax. ?? The thoracic aortic arch measures 7 cm in maximum diameter. ?? There is stent overlapping the thoracic aortic arch, new since prior ?? exam. ?? Sternal wires and multiple vascular clips in the mediastinum, unchanged. ?? Blunting of the left costophrenic angle. ?? No pneumothorax.. ?? Osteopenia versus osteoporosis. ?? Degenerative changes in the right shoulder suggesting rotator cuff ?? tendon tear, chronic. ? XR/XR chest 1V ?? IMPRESSION: ?? Pulmonary edema and left-sided ? Moderate volume pleural effusion. ?? 7 cm thoracic aortic aneurysm and questionable status post stenting. ? Recommend CT angiography thoracic aorta. ? Electronically signed by: ??Kailash Mcclain MD ??12/04/2024 02:59 PM ?? EST RP ? Dictated By: ?Kailash Lambert MD ? Signed By: ?<Electronically signed by Kailash Keys MD in OV> ? 12/04/24 1459 ? DD/ 1408 ? TD/TT: 12/04/24 1452 ? Deburr Operator: ? Procedure Note Donmilindter, Image - 12/04/[address] [address] XRay Report Signed Patient: Jori Forrest# : [id number] : 1940Acct:[id number] Age/Sex: 84 / MADM Date: 12/04/24 Loc: HO.ED Attending Dr: Ordering Physician: Rhea Riley MD Date of Service: 12/04/24 Procedure(s): XR chest 1V Accession Number(s): [id number] cc: Rhea Riley MD; Adriane Higuera MD EXAMINATION: XR CHEST CLINICAL INFORMATION: Abdominal pain COMPARISON: August 25, 2024. TECHNIQUE: Frontal view of the chest was obtained. FINDINGS: Indistinct pulmonary margins of the perihilar regions. Cardiomediastinal silhouette overlaps the left hemithorax. The thoracic aortic arch measures 7 cm in maximum diameter. There is stent overlapping the thoracic aortic arch, new since prior exam. Sternal wires and multiple vascular clips in the mediastinum, unchanged. Blunting of the left costophrenic angle. No pneumothorax.. Osteopenia versus osteoporosis. Degenerative changes in the right shoulder suggesting rotator cuff tendon tear, chronic. XR/XR chest 1V IMPRESSION: Pulmonary edema and left-sided Moderate volume pleural effusion. 7 cm thoracic aortic aneurysm and questionable status post stenting. Recommend CT angiography thoracic aorta. Electronically signed by: Kailash Mcclain MD 12/04/2024 02:59 PM [facility] Dictated By: Kailash Lambert MD Signed By: <Electronically signed by Kailash Keys MDin OV> 12/04/24 1459 DD/ 1408 TD/TT: 12/04/241451 Deburr Operator: us [facility] External Provider IMG XR PROCEDURES Final Result documented in this encounter Visit Diagnoses Not on filedocumented in this encounter Additional Health Concerns Assessment Noted Time PHQ-9 Depression Total Score: 0 11/13/19 25 1:31 PM EST documented as of this encounter Care Teams Recoating Machine Operator Relationship Specialty Start Date End Date Adriane Higuera MD [address] [place] [address] PCP - General Family Medicine 06/14/13 documented as of this encounter
--- OUTSIDE RECORDS SUMMARY | 2024-12-04 18:45 | XMS_ITS | Encounter Summary ---
Author Organization [employer] Address [address] [place] [address] Care Team Providers Care Taper Machine Name Role Phone Adriane Higuera MD Primary Care Provider [phone] Reason for Visit * Reason Comments Med Refill Encounter Details Date Type Department Care Team ([facility] st Contact Info) Description 02/21/2023 Refill [facility] [address] [place], [place] [phone] Alecia Flowers MD [address] [place], [place] [phone] Nausea Social History Tobacco Use Types Packs/Day Years Used Date Smoking Tobacco: Never Passive Smoke Exposure: Never Smokeless Tobacco: Never Depression Answer Date Recorded Patient Health Questionnaire-9 Score 0 02/01/2023 Depression Answer Date Recorded Patient Health Questionnaire-2 Score 0 02/01/2023 Sex and Gender Information Value Date Recorded Sex Assigned at Male 08/09/2022 10:15 AM EDT Legal Sex Male 10:15 AM EDT Gender Identity Male 02/01/2023 3:20 PM EDT Sexual Orientation Don't know 08/09/2022 10 :15 AM EDT COVID-19 Exposure Response Date Recorded In the last 10 days, have yo u been in contact with someone who was confirmed or suspected to have Coronavirus/COVID-19? No / Unsure 02/01/2023 3:18 PM EDT documented as of this encounter Plan of Treatment Not on file documented as of this encounter Visit Diagnoses Diagnosis Nausea Nausea alone documented in this encounter Additional Health Concerns Assessment Noted Time PHQ-9 Depression Total Score: 0 02/02/20 23 3:52 PM EDT documented as of this encounter Care Teams Taper Machine Relationship Specialty Start Date End Date Adriane Higuera MD [address] [place] [address] PCP - General Family Medicine 06/14/13 documented as of this encounter
--- OUTSIDE RECORDS SUMMARY | 2024-12-04 18:45 | XMS_ITS | Clinical Summary ---
Author Organization [employer] Address [address] [place] [address] Care Team Providers Care Applications Instructor Name Role Phone Adriane Higuera MD Primary Care Provider [phone] Allergies Active Allergy Reactions Criticality Noted Date Comments Alejandro Inhibitors 04/17/2019 Other reaction(s): Recurrent hyperkalemia / contraindication Nsaids 04/17/2019 Other reaction(s): contraindication Medications Restasis MultiDose 0.05 % ophthalmic emulsion Administer 1 drop into both eyes 2 times daily. 12/14/19 22 Active midodrine (Proamatine) 5 MG tablet TAKE 1 TABLET BY MOUTH THREE TIMES A WEEK MID TREATMENT DIRECTED 01/04/20 22 Active acetaminophen (Tylenol) 500 MG tablet Take by mouth. 1 tablet by mouth daily as needed for pain Active ondansetron (Zofran) 4 MG tabletIndicati ons:Nausea TAKE ONE TABLET BY MOUTH EVERY 8 HOURS NEEDED NAUSEA (VIAL) 84 tablet 03/08/20 23 Active lactulose (Chronulac) 10 GM/15ML solution Take 15 mL by mouth once every 2-3 days as needed for constipation. 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 without angina pectoris TAKE 1 TABLET BY MOUTH AT BEDTIME 90 tablet 3 03/26/20 24 Active cyanocobalamin (Vitamin B-12) 1000 MCG tabletIndicati ons:Vitamin B12 deficiency TAKE 1 TABLET BY MOUTH EVERY MORNING 90 tablet 3 03/26/20 24 Active aspirin (Aspirin Adult Low Strength) 81 MG EC tabletIndicati ons: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 28 tablet 06/26/20 24 Active allopurinol (Zyloprim) 100 MG tablet TAKE 1 TABLET BY MOUTH EVERY MORNING 30 tablet 6 07/27/20 24 Active terbinafine (LamISIL AT) 1 % creamIndicatio ns:Tinea pedis of both feet Wash feet, dry, very well especially between toes. Apply cream between toes once or twice daily everyday until it resolves. 42 g 1 08/16/20 24 Active pantoprazole (Protonix) 40 MG EC tablet Take 1 tablet (40 mg) by mouth before breakfast. Do not crush, chew, or split. 90 tablet 3 09/18/20 24 025 Active folic acid (Folvite) 1 MG tablet TAKE 1 TABLET BY MOUTH EVERY MORNING 30 tablet 5 10/19/19 25 Active guaiFENesin (Humibid 3) 400 MG tablet Take 1 tablet (400 mg) by mouth every 6 (six) hours if needed for cough. 45 tablet 1 11/13/19 25 Active ipratropium (Atrovent) 0.03 % nasal spray Use 1 spray to each nostril once daily 30 mL 3 11/20/19 25 Active ipratropium (Atrovent) 0.03 % nasal spray Use 1 spray to each nostril once daily 30 mL 3 02/02/20 23 025 Discontinued(Re order (will not trigger notification to Pharmacy)) Active Problems Problem Noted Date Diagnosed Date Protein calorie malnutrition 11/20/2024 Assessment & Plan (11/20/2024 11:10 AM EST): - ESRD on HD - increase nutritional supplement intake Weight loss 11/20/2024 Assessment & Plan (11/20/2024 11:12 AM EST): - most recent TSH was therapeutic level - increase nutritional supplement intake Allergic rhinitis 11/20/2024 Assessment & Plan (11/20/2024 11:21 AM EST): - trial of ipratropium nasal GI bleed 09/18/2024 Assessment & Plan (09/18/2024 3:31 PM EST): - hospitalized in Aug 2024, positive guaiac stool and normocytic anemia - treated with IV pantoprazole - evaluated by GI specialist in the hospital, and no further work-up was recommended - discharged with PO pantoprazole - follow-up with GI as needed. Chest pain of uncertain etiology 09/18/2024 Assessment & Plan (09/18/2024 3:30 PM EST): Uncertain etiology. Pt originally describe pain under his nipple are on left chest. No SOB, diaphoresis, or radiating pain down into LUE. - pt was given appt with veterinarian poultry 09/27/24 - ER precautions discussed. Low back pain radiating to left lower extremity 06/26/2024 Assessment & Plan (06/26/2024 12:27 PM EDT): - since the fall prior to his hospitalization - will check XR if it is inconclusive, will evaluate with CT scan - will prescribe tramadol for severe pain, reviewed judicious use Left hip pain 06/26/2024 Assessment & Plan (06/26/2024 12:27 PM EDT): - since the fall prior to his hospitalization - will check XR if it is inconclusive, will evaluate with CT scan - will prescribe tramadol for severe pain, reviewed judicious use Second degree heart block 06/26/2024 Assessment & Plan (06/26/2024 12:32 PM EDT): - recommended outpatient Holter monitor, will order Holter monitor - patient advised to follow-up with veterinarian poultry Gait instability 12/13/2023 Assessment & Plan (12/13/2023 3:29 PM EST): - multifactorial - currently using a special walker - will refer to PT for appropriate device History of repair of thoracic aortic aneurysm Esophageal stricture 12/01/2023 Assessment & Plan (12/13/2023 3:25 PM EST): - s/p EGD with dilation 17 mm on 06/28/23. Status post dilatation of esophageal stricture 0 12/01/2023 Assessment & Plan (12/02/2023 10:33 AM EST): XXX GAVE (gastric antral vascular ectasia) Assessment & Plan (12/13/2023 3:23 PM EST): - [place] [facility] [place] Distal esophageal stricture and stasis and tertiary contractions shown on Barium swallow study. S/p EGD with dilation 17 mm on 06/28/23. Sims's esophagus, hiatal hernia and gastric antral vascular ectasia (GAVE). - Continue PPI. Hiatal hernia 12/01/2023 Assessment & Plan (12/13/2023 3:17 PM EST): - [place] [facility], last seen on 08/29/23 - s/p EGD with dilation 17 mm on 06/28/23 Venous insufficiency 11/30/2023 Left ear pain 08/23/2023 Assessment & Plan (08/23/2023 9:34 AM EST): Pt started with left ear pain 3 weeks ago and reported blood in it Denies trauma but using cotton swabs Noted improvement after ciprodex completed but now again discomfort in left ear and pain radiated to mandibular angle Currently pt is asymptomatic ,no mastoid pain w palpation Noted some scant whitish debris deep in canal Will tx as for possible infection w quinolones only -I did not take sample for cx from ear given discharge was more solid and deep in canal -trial w ofloxacin otic daily for 7 days -tylenol prn -advised to avoid placing any foreign body in ear including cotton swabs -to f w PCP in 2 weeks if ongoing symptoms would need ENT referral and if worsen discharge will need cx as well Dysphagia 02/01/2023 Assessment & Plan (12/02/2023 10:32 AM EST): Followed by GI -Previous workup has been negative for aspiration. -Patient had Barium Swallow in 02/2023 showed esophageal stricture and abnormal esophageal motility. - EGD on 06/28/23 reported Sims's esophagus, GAVE, hiatal hernia Assessment & Plan (09/23/2023 7:29 PM EST): Followed by GI -Previous workup has been negative for aspiration -Patient has Barium Swallow in 02/2023 showed esophageal stricture and abnormal esophageal motility. - EGD on 06/28/23 Sims's esophagus, GAVE, hiatal hernia Assessment & Plan (06/07/2023 4:55 PM EDT): Followed by GI -Previous workup has been negative for aspiration -Patient has Barium Swallow in 02/2023 showed esophageal stricture and abnormal esophageal motility. -Anticipating procedure, Barium Dilation. Pt will likely need cardiac clearance Choking sensation 02/01/2023 Assessment & Plan (06/07/2023 4:52 PM EDT): Followed by GI -Previous workup has been negative for aspiration -Patient has Barium Swallow in 02/2023 showed esophageal stricture and abnormal esophageal motility. -GI Provider is planning to have Barium Dilation procedure -Continue Aspiration caution at home Assessment & Plan (02/01/2023 5:16 PM EDT): Followed by GI - Previous workup has been negative for aspiration -Patient has Barium Swallow scheduled in February -Continue Aspiration caution at home Sensorineural hearing loss, bilateral 10/28/2022 Assessment & Plan (11/13/2024 6:28 AM EST): >>ASSESSMENT AND PLAN FOR HL (HEARING LOSS) WRITTEN ON 02/01/2023 5:16 PM BY ANDREW LEDESMA Referred to Windows Software Developer CG was given the number to call to schedule appointment Assessment & Plan (11/13/2024 6:28 AM EST): >>ASSESSMENT AND PLAN FOR SENSORINEURAL HEARING LOSS, BILATERAL WRITTEN ON 06/07/2023 4:10 PM BY ANDREW LEDESMA Referred to Windows Software Developer CG was given the number to call to schedule appointment >>ASSESSMENT AND PLAN FOR HL (HEARING LOSS) WRITTEN ON 06/07/2023 4:56 PM BY ANDREW LEDESMA Patient has new hearing aids Assessment & Plan (10/29/2022 7:04 AM EST): - previously seen by supply and distribution manager and ENT - b/l sensorineural hearing loss - refer to supply and distribution manager so that he can get hearing aids History of prostate cancer 10/28/2022 Assessment & Plan (07/06/2024 6:40 AM EDT): -s/p radical prostatectomy in 1999 -last seen by urologist in 2019 -prescribed [place] 1000 mcg urethral suppository -pt has not been using frequently -last PSA < 0.04 on 02/03/22 Assessment & Plan (10/30/2022 6:04 AM EST): -s/p radical prostatectomy in 1999 -last seen by urologist in 2018 -prescribed [place] 1000 mcg urethral suppository -pt has not been using frequently -last PSA < 0.04 on 02/03/22 Dependence on renal dialysis 02/05/2021 Assessment & Plan (12/02/2023 10:22 AM EST): -Continue to follow with Nephrology. -Continue current Nephrology indications of dialysis. -Have FOUNDRY HAND make contact for advisement on Ensure contraindication. Assessment & Plan (02/01/2023 5:13 PM EDT): -Dialysis days MWF -Continue current Tx plan per materials research engineer Assessment & Plan (10/30/2022 5:56 AM EST): -Dialysis days MWF -Continue current Tx plan per materials research engineer End stage renal disease 02/05/2021 Assessment & Plan (11/20/2024 11:14 AM EST): - Continue hemodialysis(MWF) - Continue to follow with Nephrology Assessment & Plan (09/18/2024 3:02 PM EST): - Continue hemodialysis(MWF) - Continue to follow with Nephrology - Sent prescription for adult diapering. 06/26/24 Assessment & Plan (06/26/2024 12:28 PM EDT): - Continue hemodialysis - Continue to follow with Nephrology - Sent prescription for adult diapering. Assessment & Plan (12/02/2023 10:23 AM EST): - Continue hemodialysis - Continue to follow with Nephrology - Sent prescription for adult diapering. 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 Goal < 8% due to his age - No longer on medication. Trying to control with diet currently. Previously on metformin and glipizide. - Consider GLP-1 agonist or SGLT-2 inhibitor if A1C > 8% - Last eye exam: 12/2021, no diabetic retinopathy, pr pt report - Last comprehensive foot exam: 04/20/22, high-risk - Last microalbumin test: not indicated since pt has end stage renal dx. worsening proteinuria / nephropathy - Last lipid profile: 01/14/22 TC 191; TG 139; HDL 45; LDL 121 - ASA - prescribed - IZ - up to date Ischemic heart disease 04/22/2016 Assessment & Plan (11/13/2024 6:38 PM EST): - Donor Services Technician [facility]CCA - Optimize risk factor management and secondary prevention - Rescheduled an appointment due to chest pain Assessment & Plan (09/19/2024 4:09 PM EST): [facility] Optimize risk factor management and secondary prevention - Rescheduled an appointment due to chest pain Assessment & Plan (07/06/2024 6:26 AM EDT): - Donor Services Technician [facility] - Optimize risk factor management and secondary prevention Assessment & Plan (12/02/2023 10:30 AM EST): - Donor Services Technician: SHAWN, last seen XXX - Continue current medication as prescribed. - Last echocardiogram: Assessment & Plan (06/07/2023 4:09 PM EDT): - Donor Services Technician: SHAWN, last seen 07/24/22 - Current medications: ASA 81 mg daily; metoprolol; atorvastatin. No longer on ACEI due to ESRD - Last echocardiogram: 08/11/21 EF 60-65%, moderate left ventricular hypertrophy, normally functioning bioprosthetic valve, trace mitral regurgitation, mild pulmonary hypertension, and no evidence of aortic regurgitation. - Pt was supposed to have Echo in 08/2022. Will obtain the result Assessment & Plan (02/01/2023 5:15 PM EDT): - Donor Services Technician: SHAWN, last seen 07/24/22 - Current medications: ASA 81 mg daily; metoprolol; atorvastatin. No longer on ACEI due to ESRD - Last echocardiogram: 08/11/21 EF 60-65%, moderate left ventricular hypertrophy, normally functioning bioprosthetic valve, trace mitral regurgitation, mild pulmonary hypertension, and no evidence of aortic regurgitation. - Pt was supposed to have Echo in 08/2022. Will obtain the result Assessment & Plan (10/30/2022 5:46 AM EST): - Donor Services Technician: SHAWN, last seen 07/24/22 - Current medications: ASA 81 mg daily; metoprolol; atorvastatin. No longer on ACEI due to ESRD - Last echocardiogram: 08/11/21 EF 60-65%, moderate left ventricular hypertrophy, normally functioning bioprosthetic valve, trace mitral regurgitation, mild pulmonary hypertension, and no evidence of aortic regurgitation. - Pt was supposed to have Echo in 08/2022. Will obtain the result History of coronary artery bypass surgery 2014 Coronary artery disease invo lving nightmute coronary artery of nightmute heart without angina pectoris 08/18/2015 Essential hypertension 08/18/2015 Assessment & Plan (11/13/2024 6:38 PM EST): - Goal BP < 130/80 per ACC/AHA guideline. - Slightly elevated in clinic 09/18/24 - Continue working on life style modifications. - Previously on metoprolol succinate 100 mg which was discontinued by materials research engineer - Previously on ACEI, but discontinued lisinopril and clonidine while hospitalized in December 2018 - Previously on amlodipine 2.5 mg daily which was discontinued due to low blood pressure. - Previously on bumetanide 2 mg daily, which was discontinued in December 2020 - Previously on metoprolol succinate 200 mg daily, which was decreased to 100 mg daily in 2020 due to hypotension - History of prn midodrine use due to hypotension in 2020 - Continue checking home BP Assessment & Plan (09/19/2024 4:11 PM EST): - Goal BP < 130/80 per ACC/AHA guideline. - Slightly elevated in clinic 09/18/24 - Continue working on life style modifications. - Previously on metoprolol succinate 100 mg which was discontinued by materials research engineer - Previously on ACEI, but discontinued lisinopril and clonidine while hospitalized in December 2018 - Previously on amlodipine 2.5 mg daily which was discontinued due to low blood pressure. - Previously on bumetanide 2 mg daily, which was discontinued in December 2020 - Previously on metoprolol succinate 200 mg daily, which was decreased to 100 mg daily in 2020 due to hypotension - History of prn midodrine use due to hypotension in 2020 - Continue checking home BP Assessment & Plan (07/06/2024 6:22 AM EDT): - Goal BP < 140/90 per JNC-8 guideline, < 130/80 per ACC/AHA guideline. - Within acceptable range at home per visiting nurse and caregiver - Continue working on life style modifications. - It seems like metoprolol succinate 100 mg was discontinued; will confirm with materials research engineer and pharmacist. - Previously on ACEI, but discontinued lisinopril and clonidine while hospitalized in December 2018 - Previously on amlodipine 2.5 mg daily which was discontinued due to low blood pressure. - Previously on bumetanide 2 mg daily, which was discontinued in December 2020 - Previously on metoprolol succinate 200 mg daily, which was decreased to 100 mg daily in 2020 due to hypotension - History of prn midodrine use due to hypotension in 2020 - Continue checking home BP Assessment & Plan (12/13/2023 3:22 PM EST): - Goal BP < 140/90 per JNC-8 guideline, < 130/80 per ACC/AHA guideline. - Within acceptable range at home per visiting nurse and caregiver - Continue working on life style modifications. - Continue metoprolol succinate 100 mg daily - Previously on ACEI, but discontinued lisinopril and clonidine while hospitalized in December 2018 - Previously on amlodipine 2.5 mg daily which was discontinued due to low blood pressure. - Previously on bumetanide 2 mg daily, which was discontinued in December 2020 - Previously on metoprolol succinate 200 mg daily, which was decreased to 100 mg daily in 2020 due to hypotension - History of prn midodrine use due to hypotension in 2020 - Continue checking home BP - Follow up in 4 mo or sooner as needed Assessment & Plan (09/23/2023 7:27 PM EST): - Goal BP < 140/90 per JNC-8 guideline, < 130/80 per ACC/AHA guideline. - Within acceptable range at home per visiting nurse and caregiver - Continue working on life style modifications. - Continue metoprolol succinate 100 mg daily - Previously on ACEI, but discontinued lisinopril and clonidine while hospitalized in December 2018 - Previously on amlodipine 2.5 mg daily which was discontinued due to low blood pressure. - Previously on bumetanide 2 mg daily, which was discontinued in December 2020 - Previously on metoprolol succinate 200 mg daily, which was decreased to 100 mg daily in 2020 due to hypotension - History of prn midodrine use due to hypotension in 2020 - Continue checking home BP - Follow up in 4 mo or sooner as needed Assessment & Plan (08/23/2023 9:35 AM EST): Slight elevated BP for pt today at 142/79 FOUNDRY HAND states his BP at home is normal or borderline low -continue to monitor -has f up apt w PCP in 2 weeks Assessment & Plan (06/07/2023 4:09 PM EDT): - Goal BP < 140/90 per JNC-8 guideline, < 130/80 per ACC/AHA guideline. - Within acceptable range at home per visiting nurse and caregiver - Continue working on life style modifications. - Continue metoprolol succinate 100 mg daily - Previously on ACEI, but discontinued lisinopril and clonidine while hospitalized in December 2018 - Previously on amlodipine 2.5 mg daily which was discontinued due to low blood pressure. - Previously on bumetanide 2 mg daily, which was discontinued in December 2020 - Previously on metoprolol succinate 200 mg daily, which was decreased to 100 mg daily in 2020 due to hypotension - History of prn midodrine use due to hypotension in 2020 - Continue checking home BP - Follow up in 4 mo or sooner as needed Assessment & Plan (02/01/2023 5:13 PM EDT): - Goal BP < 140/90 per JNC-8 guideline, < 130/80 per ACC/AHA guideline. - Within acceptable range at home per visiting nurse and caregiver - Continue working on life style modifications. - Continue metoprolol succinate 100 mg daily - Previously on ACEI, but discontinued lisinopril and clonidine while hospitalized in December 2018 - Previously on amlodipine 2.5 mg daily which was discontinued due to low blood pressure. - Previously on bumetanide 2 mg daily, which was discontinued in December 2020 - Previously on metoprolol succinate 200 mg daily, which was decreased to 100 mg daily in 2020 due to hypotension - History of prn midodrine use due to hypotension in 2020 - Continue checking home BP - Follow up in 4 mo or sooner as needed Assessment & Plan (10/30/2022 5:41 AM EST): - Goal BP < 140/90 per JNC-8 guideline, < 130/80 per ACC/AHA guideline. - Within acceptable range at home per visiting nurse and caregiver - Continue working on life style modifications. - Continue metoprolol succinate 100 mg daily - Previously on ACEI, but discontinued lisinopril and clonidine while hospitalized in December 2018 - Previously on amlodipine 2.5 mg daily which was discontinued due to low blood pressure. - Previously on bumetanide 2 mg daily, which was discontinued in December 2020 - Previously on metoprolol succinate 200 mg daily, which was decreased to 100 mg daily in 2020 due to hypotension - History of prn midodrine use due to hypotension in 2020 - Continue checking home BP - Follow up in 4 mo or sooner as needed Osteoarthritis of hip 05/27/2015 Dyslipidemia 12/03/2014 Assessment & Plan (11/20/2024 11:14 AM EST): - Last lipid profile: 09/18/24 - Current medication: atorvastatin 80 mg qhs (rosuvastatin was contraindicated due to pt's CKD, now ESRD) - Cotninue high-intensity statin therapy - Check lipid profile with hepatic function panel annually Assessment & Plan (07/06/2024 6:40 AM EDT): - Last lipid profile: 02/01/23 - Current medication: atorvastatin 80 mg qhs (rosuvastatin was contraindicated due to pt's CKD, now ESRD) - Cotninue high-intensity statin therapy - Check lipid profile with hepatic function panel annually Assessment & Plan (12/02/2023 10:22 AM EST): - Last lipid profile: 02/01/23 - Current medication: atorvastatin 80 mg qhs (rosuvastatin was contraindicated due to pt's CKD, now ESRD) - Cotninue high-intensity statin therapy - Check lipid profile with hepatic function panel annually Assessment & Plan (09/23/2023 7:31 PM EST): - Last lipid profile: 02/01/23 - Current medication: atorvastatin 80 mg qhs (rosuvastatin was contraindicated due to pt's CKD, now ESRD) - Cotninue high-intensity statin therapy - Check lipid profile with hepatic function panel annually Assessment & Plan (10/30/2022 5:43 AM EST): - Last lipid profile: 01/14/22 TC 191; TG 139; HDL 45; LDL 121 - Current medication: atorvastatin 80 mg qhs (rosuvastatin was contraindicated due to pt's CKD, now ESRD) - Cotninue high-intensity statin therapy - Check lipid profile with hepatic function panel annually Hemiparesis affecting left side as late effect o f stroke 12/03/2014 Assessment & Plan (12/02/2023 10:27 AM EST): - Sent DME prescription for Stairlift instillation in home. - Sent DME prescription for motorized wheelchair/ scooter. - Referred to Physical Therapy for eval and treatment. Assessment & Plan (02/01/2023 5:15 PM EDT): - continue fall precaution - discussed that pt needs to consciously lift his left foot, especially toes, so that he does not fall Assessment & Plan (10/30/2022 6:06 AM EST): - continue fall precaution - discussed that pt needs to consciously lift his left foot, especially toes, so that he does not fall History of myocardial infarction 12/03/2014 Obstructive sleep apnea syndrome 12/03/2014 History of aortic valve replacement 05/14/2014 Aneurysm of descending aorta 02/05/2014 Assessment & Plan (09/19/2024 4:13 PM EST): -Pt had aneurysm of ascending aorta, aortic arch, and descending aorta - s/p repair in February 2014 -Followed by [facility] vascular service, last seen by Dr. Frank in Nov 2023 -CTA on 11/09/22 showed aorta 6.0 cm maximal in proximal descending thoracic aorta -Dr. Frank recommenced to consider endovascular repair with stent, if diameter becomes 6 cm previously. Because he is asymptomatic and has multiple risk factors, they agreed to continue conservative management with a follow-up CTA in 1 year -CTA of chest / abdomen / pelvis on 11/17/23 1. Status post repair of the ascending aorta with aortic valve replacement, tubular graft of the ascending aorta and reimplantation of the great arch vessels. No significant interval change in the surgical repair. 2. 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 3. Unchanged atherosclerotic disease involving the abdominal aorta. 4. No acute abnormality identified in the chest, abdomen and pelvis. -Continue risk factor management Assessment & Plan (12/13/2023 3:21 PM EST): -Pt had aneurysm of ascending aorta, aortic arch, and descending aorta - s/p repair in February 2014 -Followed by [facility] vascular service, last seen by Dr. Frank on 11/18/22. -CTA on 11/09/22 showed aorta 6.0 cm maximal in proximal descending thoracic aorta -Dr. Frank recommenced to consider endovascular repair with stent, if diameter becomes 6 cm previously. Because he is asymptomatic and has multiple risk factors, they agreed to continue conservative management with a follow-up CTA in 1 year -CTA of chest / abdomen / pelvis on 11/17/23 1. Status post repair of the ascending aorta with aortic valve replacement, tubular graft of the ascending aorta and reimplantation of the great arch vessels. No significant interval change in the surgical repair. 2. 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 3. Unchanged atherosclerotic disease involving the abdominal aorta. 4. No acute abnormality identified in the chest, abdomen and pelvis. -Upcoming appointment with Dr. 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 Frank on 11/18/22. -Most recent CTA on 11/09/22 showed aorta 6.0 cm maximal in proximal descending thoracic aorta -Dr. Frank recommenced to consider endovascular repair with stent, if diameter becomes 6 cm previously. 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 Frank on 11/18/22. -Most recent CTA on 11/09/22 showed aorta 6.0 cm maximal in proximal descending thoracic aorta -Dr. Frank recommenced to consider endovascular repair with stent, if diameter becomes 6 cm previously. Because he is asymptomatic and has multiple risk factors, they agreed to continue conservative management with a follow-up CTA in 1 year -Continue risk factor management Assessment & Plan (02/01/2023 5:07 PM EDT): -Pt had aneurysm of ascending aorta, aortic arch, and descending aorta - s/p repair in February 2014 -Followed by [facility] vascular service, last seen by Dr. Frank on 11/18/22. -Most recent CTA on 11/09/22 showed aorta 6.0 cm maximal in proximal descending thoracic aorta -Dr. Frank recommenced to consider endovascular repair with stent, if diameter becomes 6 cm previously. 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 Frank on 04/01/22. -Most recent CTA showed aorta 5.7 cm maximal in proximal descending thoracic aorta -Dr. Frank recommenced endovascular repair with stent, if diameter becomes 6 cm -Continue risk factor management -Pt was supposed to have a follow-up with vascular speciliast after another CT angiogram in Aug 2022. Will check the status of most recent TTE and CTA Aortic valve regurgitation 02/05/2014 Assessment & Plan (09/23/2023 7:27 PM EST): - s/p aortic valve repair in 2013 Assessment & Plan (10/30/2022 6:04 AM EST): - s/p aortic valve repair in 2013 Diabetes mellitus, type 2 02/05/2014 Assessment & Plan (11/13/2024 6:39 PM EST): - HgbA1C is 5.7% on 06/26/24, Goal < 8% due to his age - No longer on medication. Trying to control with diet currently. Previously on metformin and glipizide. - Consider GLP-1 agonist or SGLT-2 inhibitor if A1C > 8% - Last eye exam: [facility] - Last comprehensive foot exam: 06/07/23, high-risk - Last microalbumin test: not indicated since pt has end stage renal dx. worsening proteinuria / nephropathy - Last lipid profile: 09/18/24 - ASA - prescribed - IZ - up to date Assessment & Plan (09/19/2024 4:22 PM EST): >>ASSESSMENT AND PLAN FOR TYPE 2 DIABETES MELLITUS WITH CHRONIC KIDNEY DISEASE ON CHRONIC DIALYSIS, WITHOUT LONG-TERM CURRENT USE OF INSULIN (CMS/[facility]) WRITTEN ON 06/07/2023 4:10 PM BY ANDREW LEDESMA - HgbA1C is 6.7% on 02/01/23, stable from 6.5% on 04/20/22. Goal < 8% due to his age - No longer on medication. Trying to control with diet currently. Previously on metformin and glipizide. - Consider GLP-1 agonist or SGLT-2 inhibitor if A1C > 8% - Last eye exam: 12/2021, no diabetic retinopathy, pr pt report - Last comprehensive foot exam: 06/07/23, high-risk - Last microalbumin test: not indicated since pt has end stage renal dx. worsening proteinuria / nephropathy - Last lipid profile: 01/14/22 TC 191; TG 139; HDL 45; LDL 121 - ASA - prescribed - IZ - up to date Assessment & Plan (09/19/2024 4:22 PM EST): >>ASSESSMENT AND PLAN FOR TYPE 2 DIABETES MELLITUS WITH CHRONIC KIDNEY DISEASE ON CHRONIC DIALYSIS, WITHOUT LONG-TERM CURRENT USE OF INSULIN (CMS/H[facility]) WRITTEN ON 09/23/2023 7:36 PM BY ADRIANE HIGUERA MD - HgbA1C is 6.2% on 09/07/23, improved from 6.7% on 02/01/23. Goal < 8% due to his age - No longer on medication. Trying to control with diet currently. Previously on metformin and glipizide. - Consider GLP-1 agonist or SGLT-2 inhibitor if A1C > 8% - Last eye exam: 12/2021, no diabetic retinopathy, pr pt report - Last comprehensive foot exam: 06/07/23, high-risk - Last microalbumin test: not indicated since pt has end stage renal dx. worsening proteinuria / nephropathy - Last lipid profile: 02/01/23 - ASA - prescribed - IZ - up to date Assessment & Plan (09/19/2024 4:22 PM EST): >>ASSESSMENT AND PLAN FOR TYPE 2 DIABETES MELLITUS WITH CHRONIC KIDNEY DISEASE ON CHRONIC DIALYSIS, WITHOUT LONG-TERM CURRENT USE OF INSULIN ([facility]) WRITTEN ON 06/26/2024 10:54 AM BY DIMITRI GARZA - HgbA1C is 5.7% on 06/26/24, Goal < 8% due to his age - No longer on medication. Trying to control with diet currently. Previously on metformin and glipizide. - Consider GLP-1 agonist or SGLT-2 inhibitor if A1C > 8% - Last eye exam: 12/2021, no diabetic retinopathy, pr pt report - Last comprehensive foot exam: 06/07/23, high-risk - Last microalbumin test: not indicated since pt has end stage renal dx. worsening proteinuria / nephropathy - Last lipid profile: 02/01/23 - ASA - prescribed - IZ - up to date Assessment & Plan (09/19/2024 4:22 PM EST): - HgbA1C is 5.7% on 06/26/24, Goal < 8% due to his age - No longer on medication. Trying to control with diet currently. Previously on metformin and glipizide. - Consider GLP-1 agonist or SGLT-2 inhibitor if A1C > 8% - Last eye exam: [facility] - Last comprehensive foot exam: 06/07/23, high-risk - Last microalbumin test: not indicated since pt has end stage renal dx. worsening proteinuria / nephropathy - Last lipid profile: 09/18/24 - ASA - prescribed - IZ - up to date Assessment & Plan (12/02/2023 10:20 AM EST): -Sent DME referral for diabetic shoes. -Sent referral for podiatry for DM nail care. -Sent ophthalmology referral for DM eye exam, evaluation and follow up treatment. -Discussed use of Ensure would have to be cleared by Nephrology. -Continue to follow with Nephrology. -Continue current medications as prescribed. -Follow up in 2-3 months. Assessment & Plan (09/19/2024 4:22 PM EST): >>ASSESSMENT AND PLAN FOR DIABETES MELLITUS, TYPE 2 ([facility]) WRITTEN ON 02/01/2023 5:12 PM BY ANDREW LEDESMA - HgbA1C is 6.7% on 02/01/23, stable from 6.5% on 04/20/22. Goal < 8% due to his age - No longer on medication. Trying to control with diet currently. Previously on metformin and glipizide. - Consider GLP-1 agonist or SGLT-2 inhibitor if A1C > 8% - Last eye exam: 12/2021, no diabetic retinopathy, pr pt report - Last comprehensive foot exam: 04/20/22, high-risk - Last microalbumin test: not indicated since pt has end stage renal dx. worsening proteinuria / nephropathy - Last lipid profile: 01/14/22 TC 191; TG 139; HDL 45; LDL 121 - ASA - prescribed - IZ - up to date >>ASSESSMENT AND PLAN FOR TYPE 2 DIABETES MELLITUS WITH CHRONIC KIDNEY DISEASE ON CHRONIC DIALYSIS, WITHOUT LONG-TERM CURRENT USE OF INSULIN ([facility]) WRITTEN ON 2023 11:35 AM BY ADRIANE HIGUERA MD - HgbA1C is 6.7% on 02/01/23, stable from 6.5% on 04/20/22. Goal < 8% due to his age - No longer on medication. Trying to control with diet currently. Previously on metformin and glipizide. - Consider GLP-1 agonist or SGLT-2 inhibitor if A1C > 8% - Last eye exam: 12/2021, no diabetic retinopathy, pr pt report - Last comprehensive foot exam: 04/20/22, high-risk - Last microalbumin test: not indicated since pt has end stage renal dx. worsening proteinuria / nephropathy - Last lipid profile: 01/14/22 TC 191; TG 139; HDL 45; LDL 121 - ASA - prescribed - IZ - up to date Assessment & Plan (10/30/2022 5:48 AM EST): - HgbA1C is 6.5% on 04/20/22. Goal < 8% due to his age - No longer on medication. Trying to control with diet currently. Previously on metformin and glipizide. - Consider GLP-1 agonist or SGLT-2 inhibitor if A1C > 8% - Last eye exam: 12/2021, no diabetic retinopathy, pr pt report - Last comprehensive foot exam: 04/20/22, high-risk - Last microalbumin test: not indicated since pt has end stage renal dx. worsening proteinuria / nephropathy - Last lipid profile: 01/14/22 TC 191; TG 139; HDL 45; LDL 121 - ASA - prescribed - IZ - up to date Hypothyroidism 02/05/2014 Assessment & Plan (11/13/2024 6:39 PM EST): - Most recent thyroid function test on 09/18/24 TSH 3.85 - Current replacement: Levothyroxine 50 mcg daily - Continue periodic thyroid function test. Assessment & Plan (09/19/2024 4:19 PM EST): - Most recent thyroid function test on 09/18/24 TSH 3.85 - Current replacement: Levothyroxine 50 mcg daily - Continue periodic thyroid function test. Assessment & Plan (07/06/2024 6:36 AM EDT): -Continue Levothyroxine 50 mcg daily - Most recent lab: 02/01/23 TSH 2.74 -Check thyroid function test. Assessment & Plan (12/02/2023 10:28 AM EST): -Continue Levothyroxine 50 mcg daily - Most recent lab: XXX -Check thyroid function test. Assessment & Plan (09/23/2023 7:32 PM EST): - Current medication: levothyroxine 50 mcg daily - Most recent lab: 02/01/23 2.74 - Continue current replacement. -Check thyroid function test. Assessment & Plan (02/01/2023 5:15 PM EDT): - Current medication: levothyroxine 50 mcg daily - Most recent lab: 01/14/22 TSH 3.84, will update his lab - Continue current replacement. -Check thyroid function test. Assessment & Plan (10/30/2022 5:34 AM EST): - Current medication: levothyroxine 50 mcg daily - Most recent lab: 01/14/22 TSH 3.84, will update his lab - Continue current replacement. -Check thyroid function test. 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 Frank on 12/06/23. -CTA of chest / abdomen / pelvis on 11/17/23: thoracic aortic aneurysm in the proximal descending thoracic remains at about 6 cm unchanged from last year. The distal thoracic aneurysm is about 4.2 cm again unchanged from last year. -Previous plan was to consider endovascular repair when aneurysm size > 6 cm. Because he is asymptomatic and has multiple risk factors, Dr. Frank and patient agreed to continue conservative management with a follow-up CTA in 1 year -Continue risk factor management Assessment & Plan (07/06/2024 6:33 AM EDT): -Pt had aneurysm of ascending aorta, aortic arch, and descending aorta - s/p repair in February 2014 -Followed by [facility] vascular service, last seen by Dr. Frank on 12/06/23. -CTA of chest / abdomen / pelvis on 11/17/23: thoracic aortic aneurysm in the proximal descending thoracic remains at about 6 cm unchanged from last year. The distal thoracic aneurysm is about 4.2 cm again unchanged from last year. -Previous plan was to consider endovascular repair when aneurysm size > 6 cm. Because he is asymptomatic and has multiple risk factors, Dr. 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 Frank on 11/18/22. -CTA on 11/09/22 showed aorta 6.0 cm maximal in proximal descending thoracic aorta -Dr. Frank recommenced to consider endovascular repair with stent, if diameter becomes 6 cm previously. Because he is asymptomatic and has multiple risk factors, they agreed to continue conservative management with a follow-up CTA in 1 year -CTA of chest / abdomen / pelvis on 11/17/23 1. Status post repair of the ascending aorta with aortic valve replacement, tubular graft of the ascending aorta and reimplantation of the great arch vessels. No significant interval change in the surgical repair. 2. 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 3. Unchanged atherosclerotic disease involving the abdominal aorta. 4. No acute abnormality identified in the chest, abdomen and pelvis. 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 Frank on 11/18/22. -Most recent CTA on 11/09/22 showed aorta 6.0 cm maximal in proximal descending thoracic aorta -Dr. Frank recommenced to consider endovascular repair with stent, if diameter becomes 6 cm previously. 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 Frank on 11/18/22. -Most recent CTA on 11/09/22 showed aorta 6.0 cm maximal in proximal descending thoracic aorta -Dr. Frank recommenced to consider endovascular repair with stent, if diameter becomes 6 cm previously. 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 Frank on 11/18/22. -Most recent CTA on 11/09/22 showed aorta 6.0 cm maximal in proximal descending thoracic aorta -Dr. Frank recommenced to consider endovascular repair with stent, if diameter becomes 6 cm previously. 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 Frank on 04/01/22. -Most recent CTA showed aorta 5.7 cm maximal in proximal descending thoracic aorta -Dr. Frank recommenced endovascular repair with stent, if diameter becomes 6 cm -Continue risk factor management -Pt was supposed to have a follow-up with vascular speciliast after another CT angiogram in Aug 2022. Will check the status of most recent TTE and CTA Simple renal cyst 06/26/2013 08/30/2023 History of hemorrhagic stroke with residual khoi paresis 07/04/2012 Diverticular disease 07/04/2012 Atherosclerosis of coronary artery 03/27/2012 Resolved Problems Problem Noted Date Diagnosed Date Resolved Date AV fistula infection, initial encounter 06/26/2024 09/19/2024 Assessment & Plan (06/26/2024 12:30 PM EDT): - hospitalized in May 2024 for septic shock, likely secondary to AV fistula infection - s/p AV fistula repair 06/06/24 - started on IV antibiotic and still receiving to complete 4 weeks of IV cefazolin - scheduled appointment for follow-up with vascular surgeon Hyperkalemia 12/11/2020 10/30/2022 Benign prostatic hyperplasia 03/27/2012 10/30/2022 Encounters Date Type Department Care Team Description 12/04/2024 Orders Only [facility] External Provider, 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 (CMS/HCC) (Primary Dx); Essential hypertension; Ischemic heart disease; End stage renal disease (CMS/HCC); Acquired hypothyroidism; Type 2 diabetes mellitus with chronic kidney disease on chronic dialysis, without long-term current use of insulin (CMS/HCC); Encounter for immunization; Weight loss; Protein-calorie malnutrition, unspecified severity (CMS/HCC); Dyslipidemia; Allergic rhinitis, unspecified seasonality, unspecified trigger; Subacute cough 11/13/2024 Travel 11/09/[address] [address] Aydee Hein MA chart prep 10/19/[address] [address] Adriane Higuera MD 09/18/2024 2:30 PM EST Office Visit [address] [phone] Adriane Higuera MD Ischemic heart disease (Primary Dx); Essential hypertension; End stage renal disease (CMS/HCC); Type 2 diabetes mellitus with chronic kidney disease on chronic dialysis, without long-term current use of insulin (CMS/HCC); Gastrointestinal hemorrhage, unspecified gastrointestinal hemorrhage type; Chest pain of uncertain etiology; Aneurysm of descending thoracic 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 (CMS/HCC); Aneurysm of descending aorta (CMS/HCC); Diabetic nephropathy associated with type 2 diabetes mellitus (CMS/HCC); Acquired hypothyroidism 09/18/2024 Travel 09/14/[address] [address] Aydee Hein MA from Last 3 Months Immunizations Name Administration Dates Next Due Hep B, adult 09/27/2014,07/16/2014,06/12/2014 Influenza injectable quadriv alent IIV4 with preservative 06/26/2018,07/29/2016 Influenza injectable quadriv alent preservative free 07/15/2015,12/03/2014 Influenza, High Dose Seasona l, Preservative Free 11/13/2024,08/02/2019,07/07/2017 Influenza, IIV3, injectable 07/13/2023 Influenza, Split (incl. carter fied surface antigen) 07/13/2013 Pfizer Covid-19 Vaccine 12+ 11/13/2024 Pneumococcal Conjugate PCV 13 07/29/2016 Pneumococcal Polysaccharide PPSV23 05/11,02/23/2014,01/24/2014,08/23 TD (adult), 2 Lf tetanus tox oid, preservative free, adsorbed 11/07/2008,06/18/1998 Tdap 11/13/2024,07/13/2013 Zoster, Recombinant 03/08/2023,07/07/2020 Zoster, live 07/29/2016 Social History Tobacco Use Types Packs/Day Years [...] Don't know 08/09/2022 10 :15 AM EDT Last Filed Vital Signs Vital Sign Reading Time Taken Comments Blood Pressure 135/73 11/13/2024 1:31 PM EST Pulse 77 11/13/2024 1:31 PM EST Temperature 36.2 ??C (97.1 ??F) 11/13/2024 1:31 PM ES T Respiratory Rate 23 11/13/2024 1:31 PM EST Oxygen Saturation 96% 11/13/2024 1:31 PM EST Inhaled Oxygen Concentration - - Weight 74.5 kg (164 lb 3.2 oz) 11/13/2024 1:31 P M EST Height 175.3 cm (5' 9 ) 12/01/2023 9:53 AM EST Body Mass Index 24.25 12/01/2023 9:53 AM EST Plan of Treatment Health Maintenance Due Date Last Done Comments RSV Patients and Patients Aged 60 years or older (1 - 1-dose 75+ series) 2014 Hepatitis B Vaccines (3 of 3 - 19+ 3-dose series) 12/10/2014 09/27/2014, 07/16/2014, 06/12/2014 Diabetes: Hemoglobin A1C 12/24/2024 024, 09/06/2023, 02/01/2023, Additional history exists SDOH Screening 02/20/2025 02/21/2024 Lipid Panel 09/18/2025 09/18/2024, 01/09, 01/14/2022, Additional history exists Alcohol/Substance Use Screening 11/13/2025 11/13/2024 Depression Screening 11/13/2025 11/13/2024, 11/13/19 Diabetes: Foot Exam 11/13/2025 11/13/2024, 09/06/2023, 09/06/2023, Additional history exists Tobacco Screening 11/20/2025 11/20/2024 Eye Exam 03/27/2026 03/27/2024 DTaP/Tdap/Td Vaccines (3 - Td or Tdap) 11/13/2034 11/13/2024, 07/13/2013, 11/07/2008, Additional history exists Pneumococcal Vaccine: 50+ Years Completed 05/11/2021, 07/29/2016, 02/23/2014, Additional history exists Zoster Vaccines Completed 03/08/2023, 06/11, 07/29/2016 COVID-19 Vaccine Completed 11/13/2024, , 09/22/2021, Additional history exists Influenza Vaccine Completed 11/13/2024, , 08/02/2019, Additional history exists HIB Vaccines Aged Out No longer eligi ble based on patient's age to complete this topic HPV Vaccines Aged Out No longer eligi ble based on patient's age to complete this topic Hepatitis A Vaccines Aged Out No long er eligible based on patient's age to complete this topic IPV Vaccines Aged Out No longer eligi ble based on patient's age to complete this topic Meningococcal Vaccine Aged Out No favio joshua eligible based on patient's age to complete this topic RSV under 20 months Aged Out No longe r eligible based on patient's age to complete this topic Rotavirus Vaccines Aged Out No longer eligible based on patient's age to complete this topic Procedures Procedure Name Priority Date/Time Associated Diagnosis Comments CT ABDOMEN PELVIS WO CONTRAST Routine 12/04/2024 3:01 PM EST XR CHEST 1 VIEW Routine 12/04/2024 2:08 PM EST TSH W/REFLEX TO FT4 Routine 09/18/2024 3 :43 PM EST Acquired hypothyroidism LIPID PANEL WITH REFLEX TO DIRECT LDL Routine 09/18/2024 3:43 PM EST Type 2 diabetes mellitus with chronic kidney disease on chronic dialysis, without long-term current use of insulin ([facility]) Dyslipidemia POCT GLYCOSYLATED HEMOGLOBIN (HGB A1C) Routine 06/26/2024 10:25 AM EDT Type 2 diabetes mellitus with chronic kidney disease on chronic dialysis, without long-term current use of insulin ([facility]) DIABETES EYE EXAM Routine 03/27/2024 from Last 3 Months or Most Recently Relevant to Health Maintenance Results * CT Abdomen Pelvis w/o Contrast (12/04/2024 3:01 PM EST) Anatomical Region Laterality Modality Body, Pelvis, Abdomen Computed T omography 12/04/2024 3:01 PM EST Narrative 12/04/2024 3:33 PM EST ? [facility] ?[address]. ?[place] [address] ? CT Scan Report ? Signed ? Patient: Petar Rafael,Silfrys ?MR# ?? : [id number] ? : 1940 ?Acct:[id number] ? Age/Sex: 84 / M ?ADM Date: 02/25/25 ? Loc: HO.ED ? Attending Dr: ? Ordering Physician: Rhea Riley MD ?? Date of Service: 12/04/24 ?? Procedure(s): CT abdomen pelvis wo IV con ?? Accession Number(s): [id number] ? cc: Rhea Riley MD; Adriane Higuera MD ? Report Number: ?? [id number]: Total DLP = ??478.00 mGy-cm ?? EXAMINATION: [...] DD/ 1501 ? TD/TT: 12/04/24 1516 ? Laboratory Clerk: ? Procedure Note Yamila, Image - 12/04/[address] [address] [address] Scan Report Signed Patient: Ramonita ForrestysMR# : [id number] : 1940Acct:[id number] Age/Sex: 84 / MADM Date: 12/04/24 Loc: HO.ED Attending Dr: Ordering Physician: Rhea Riley MD Date of Service: 12/04/24 Procedure(s): CT abdomen pelvis wo IV con Accession Number(s): [id number] cc: Rhea Riley MD; Adriane Higuera MD Report Number: [id number]: Total DLP = 478.00 mGy-cm EXAMINATION: CT [...] Theodore Hassan MD 12/04/2024 03:30 PM EST RP Dictated By: Theodore Hassan MD Signed By: <Electronically signed by Theodore Hassan MD in OV> 12/04/24 1530 DD/ 1501 TD/TT: 12/04/24 1516 Laboratory Clerk: [facility] External Provider IMG CT PROCEDURES Final Result * XR Chest 1 View (12/04/2024 2:08 PM EST) Anatomical Region Laterality Modality Chest Radiographic Loren ging 12/04/2024 2:08 PM EST Narrative 12/04/2024 3:02 PM EST ? [facility] ?[address] ?[place] [address] ?XRay Report ? Signed ? Patient: Bi Forrest ?MR# ?? : [id number] ? : 1940 ?Acct:[id number] ? Age/Sex: 84 / M ?ADM Date: 12/04/24 ? Loc: HO.ED ? Attending Dr: ? Ordering Physician: Rhea Riley MD ?? Date of Service: 12/04/24 ?? Procedure(s): XR chest 1V ?? Accession Number(s): [id number] ? cc: Rhea Riley MD; Adriane Higuera [...] Kailash Keys MD in OV> ? 12/04/24 145 ? DD/ 1408 ? TD/TT: 12/04/24 1452 ? Laboratory Clerk: ? Procedure Note Yamila, Brenda - 12/04/[address] [address] XRay Report Signed Patient: Jori Forrest# : [id number] : 9Acct:[id number] Age/Sex: 84 / MADM Date: 12/04/24 Loc: .ED Attending Dr: Ordering Physician: Rhea Riley MD Date of Service: 12/04/24 Procedure(s): XR chest 1V Accession Number(s): [id number] cc: Rhea Riley MD; Adriane Higuera MD [...] by: Kailash Mcclain MD 12/04/2024 02:59 PM EST RP Dictated By: Kailash Lambert MD Signed By: <Electronically signed by Kailash Keys MDin OV> 12/04/24 1459 DD/ 1408 TD/TT: 12/04/24 1452 Laboratory Clerk: [facility] External Provider IMG XR PROCEDURES Final Result * TSH with Reflex to Free T4 (09/18/2024 3:43 PM EST) TSH reflex Free T4 3.85 0.32 - 4.0 uIU/mL [facility] Blood 09/18/2024 3:43 PM EST 09/18/2024 4:00 PM EST Adriane Higuera MD LAB BLOOD ORDERABLES Final Resul t [facility] [address] [place] [phone] * (ABNORMAL) Lipid Panel with Reflex to Direct LDL (09/18/2024 3:43 PM EST) Triglycerides 103 <150 mg/dL [facility] Comment:Desirable Triglyceri de: less than 150 mg/dLBorderline High Triglyceride 150-199 mg/dLHigh Triglyceride: 200-499 mg/dLVery High Triglyceride: greater than or equal to 5OO mg/dL Cholesterol 157 <200 mg/dL [facility] Comment:Desirable Cholestero l: less than 200 mg/dLBorderline High Cholesterol: 200-239 mg/dLHigh Cholesterol: greater than 239 mg/dL LDL Cholesterol Calculated 97 <100 mg/dL [facility] Comment:Desirable LDL: less than 100 mg/dLNear Optimal/Above Optimal LDL: 110- 129 mg/dLBorderline High LDL: 130-159 mg/dLHigh LDL: 160-189 mg/dLVery High LDL: greater than or equal to 190 mg/dL HDL Cholesterol 40(L) >40 mg/dL [facility] Comment:Desirable HDL: great er than 40 mg/dL Note: This HDL assay may give artificially low results in patients with liver disease. Blood 09/18/2024 3:43 PM EST 09/18/2024 4:00 PM EST Adriane Higuera MD LAB BLOOD ORDERABLES Final Resul t [facility] [address] [place], [place] [phone] * POCT glycosylated hemoglobin (Hgb A1c) (06/26/2024 10:25 AM EDT) Hemoglobin A1C 5.7 4.0 - 6.0 % QC Media Lot # [id number] Lot# Expiration Date [id number] Blood Capillary blood specimen / Unknown 06/26/2024 10:25 AM EDT Adriane Higuera MD POINT OF CARE TEST ENTER/EDIT OR DERABLES Final Result * Diabetes Eye Exam (03/27/2024) Eye Exam Normal Normal 03/27/2024 Anika Romero MD HEALTH MAINTENANCE Final Result from Last 3 Months or Most Recently Relevant to Health Maintenance Insurance [facility] Care Teams Applications Instructor Relationship Specialty Start Date End Date Adriane Higuera MD [address] [place] [phone] PCP - General Family Medicine 06/14/13
--- OUTSIDE RECORDS SUMMARY | 2024-12-04 18:45 | XMS_ITS | Encounter Summary ---
Author Organization [employer] Address [address] [facility] [address] [place] [address] Care Team Providers Care Exec. 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 (CMS/HCC) (Primary Dx); Essential hypertension; Ischemic heart disease; End stage renal disease (CMS/HCC); Acquired hypothyroidism; Type 2 diabetes mellitus with chronic kidney disease on chronic dialysis, without long-term current use of insulin (CMS/HCC); Encounter for immunization; Weight loss; Protein-calorie malnutrition, unspecified severity (CMS/HCC); Dyslipidemia; Allergic rhinitis, unspecified seasonality, unspecified trigger; Subacute cough Social History Tobacco Use Types Packs/Day Years [...] AM EDT documented as of this encounter Last Filed Vital Signs Vital Sign Reading [...] oz) 11/13/2024 1:31 P M EST Height - - Body Mass Index 24.25 12/01/2023 9:53 AM EST documented in this encounter Progress Notes * Adriane Higuera MD - 11/13/2024 1:15 PM EST Jairo Hall is a 84 y.o. male who has CAD s/p CABG, ESRD on HD, s/p CVA with left hemiparesis, and diabetes mellitus type 2, and patient presents for follow up of chronic conditions. Background: Our last encounter was 09/18/2024. Hospital discharge follow-up after hospitalization in Aug 2024 for encephalopathy. Dx TIA. Positive FOBT. Rx PPI. Interval history: Patient came with his son. The major concern was that he needed a ramp to make his apartment more accessible. Seen by [facility] cafeteria cook, Dr. Valdez on 09/27/24. Follow up with transthoracic echocardiogram in 6 mo. Today: Pt is here with his caregiver / PAVING FOREMAN, Nhung. He reports he is still having a difficult time accessing his apartment because he???s in a wheelchair. Pt agreed to tetanus, flu, and hepatitis shot. Pt is doing dialysis 3 times a week. Pt reports he has been losing weight and has been drinking Boost once a day. He notes he doesn???t have much of an appetite. Pt has been losing his voice and have been coughing with sputum, and has had a lot of drainage fromhis nose, but denies having any chest pains. Pt denies using any nasal sprays, but he was prescribed azithromycin by the dialysis clinic he visits and has also been using an air purifier. Review of Systems Constitutional: Negative for activity change, appetite change and fever. Respiratory: Negative for shortness of breath. Cardiovascular: Negative for chest pain. Objective Vitals: 11/13/24 1331 BP: 135/73 Pulse: 77 Resp: 23 Temp: 97.1 ??F (36.2 ??C) TempSrc: Temporal SpO2: 96% Weight: 164 lb 3.2 oz (74.5 kg) Physical Exam Constitutional: General: He is not in acute distress. Appearance: Normal appearance. He is not ill-appearing. HENT: Head: Normocephalic and atraumatic. Mouth/Throat: Mouth: Mucous membranes are moist. Eyes: Extraocular Movements: Extraocular movements intact. Pupils: Pupils are equal, round, and reactive to light. Cardiovascular: Rate and Rhythm: Normal rate and regular rhythm. Heart sounds: No murmur heard. Pulmonary: Effort: Pulmonary effort is normal. No respiratory distress. Breath sounds: Normal breath sounds. No wheezing or rhonchi. Skin: General: Skin is warm. Neurological: Mental Status: He is alert. Mental status is at baseline. Psychiatric: Mood and Affect: Mood normal. Results: Lab Results Component Value Date NA 141 06/28/2023 K 4.6 06/28/2023 CL 98 06/28/2023 CO2 32 (H) 06/28/2023 BUN 30 (H) 01/14/2022 CREATININE 5.45 (HH) 01/01/2021 EGFR 10 01/01/2021 ALT 11 12/18/2020 Lab Results Component Value Date TRIG 103 09/18/2024 CHOL 157 09/18/2024 LDLCHOLCAL 97 09/18/2024 HDL 40 (L) 09/18/2024 Lab Results Component Value Date HGBA1C 5.7 06/26/2024 MICROALBUR 216.9 12/18/2020 CREATUR 78 12/18/2020 Lab Results Component Value Date WBC 6.4 12/18/2020 HGB 8.9 (L) 12/18/2020 Lab Results Component Value Date TSH 3.85 09/18/2024 TSH 2.74 02/01/2023 Screening and Health Care Maintenance: PHQ-2/9 Score: Patient Health Questionnaire-9 Score: 0 (11/13/2024 1:31 PM) Patient Health Questionnaire-2 Score: 0 (11/13/2024 1:31 PM) Thoughts that you would be better off or hurting yourself in some way: Not at all (11/13/2024 1:31 PM) SHELLY-7 Score: No data recorded Health Maintenance Due Topic Date Due RSV Patients and Patients Aged 60 years or older (1 - 1-dose 75+ series) Never done Hepatitis B Vaccines (3 of 3 - 19+ 3-dose series) 12/10/2014 Diabetes: Hemoglobin A1C 12/24/2024 Assessment/Plan Problem List Items Addressed This Visit Diabetes mellitus, type 2 (CMS/HCC) - HgbA1C is 5.7% on 06/26/24, Goal < 8% due to his age - No longer on medication. Trying to control with diet currently. Previously on metformin and glipizide. - Consider GLP-1 agonist or SGLT-2 inhibitor if A1C > 8% - Last eye exam: [facility] - Last comprehensive foot exam: 06/07/23, high-risk - Last microalbumin test: not indicated since pt has end stage renal dx. worsening proteinuria / nephropathy - Last lipid profile: 09/18/24 - ASA - prescribed - IZ - up to date Dyslipidemia - Last lipid profile: 09/18/24 - Current medication: atorvastatin 80 mg qhs (rosuvastatin was contraindicated due to pt's CKD, Kamille) - Cotninue high-intensity statin therapy - Check lipid profile with hepatic function panel annually End stage renal disease ([facility]) - Continue hemodialysis(MWF) - Continue to follow with Nephrology Essential hypertension - Goal BP < 130/80 per ACC/AHA guideline. - Slightly elevated in clinic 09/18/24 - Continue working on life style modifications. 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 Ischemic heart disease - [employer] [facility] - Optimize risk factor management and secondary prevention - Rescheduled an appointment due to chest pain Protein calorie malnutrition ([facility]/HCC) - ESRD on HD - increase nutritional supplement intake Weight loss - most recent TSH was therapeutic level - increase nutritional supplement intake Allergic rhinitis - trial of ipratropium nasal Other Visit Diagnoses Encounter for immunization Relevant Orders FLU VACCINE TRIVALENT HIGH DOSE 65 yrs + (Completed) Tdap vaccine greater than or equal to 7 years old IM (Completed) Pfizer COVID-19 Vaccine 12+ (Completed) Subacute cough - trial of guaifenessin and ipratropium nasal spray. Keep approrpiate room temperature and humidity. Allergies Allergen Reactions Alejandro Inhibitors Other reaction(s): Recurrent hyperkalemia / contraindication Nsaids Other reaction(s): contraindication Current Outpatient Medications Medication Instructions acetaminophen (Tylenol) 500 MG tablet Oral, 1 tablet by mouth daily as needed for pain allopurinol (ZYLOPRIM) 100 mg, Oral, Every morning aspirin (Aspirin Adult Low Strength) 81 MG EC tablet TAKE 1 TABLET BY MOUTH EVERY MORNING atorvastatin (Lipitor) 80 MG tablet TAKE 1 TABLET BY MOUTH AT BEDTIME cholecalciferol (Vitamin D High Potency) 25 MCG (1000 UT) capsule TAKE 1 CAPSULE BY MOUTH EVERY MORNING cyanocobalamin (Vitamin B-12) 1000 MCG tablet TAKE 1 TABLET BY MOUTH EVERY MORNING folic acid (Folvite) 1 MG tablet TAKE 1 TABLET BY MOUTH EVERY MORNING guaiFENesin (HUMIBID 3) 400 mg, Oral, Every 6 hours PRN ipratropium (Atrovent) 0.03 % nasal spray Use 1 spray to each nostril once daily lactulose (Chronulac) 10 GM/15ML solution Take 15 mL by mouth once every 2-3 days as needed for constipation. levothyroxine (Synthroid, Levoxyl) 50 MCG tablet TAKE 1 TABLET BY MOUTH ONCE A DAY^1R1 midodrine (Proamatine) 5 MG tablet TAKE 1 TABLET BY MOUTH THREE TIMES A WEEK MID TREATMENT DIRECTED Jtbdwknb-Wujmjuvnm-CN 1 % solution INSTILL 5 DROPS INTO THE LEFT EAR DAILY ondansetron (Zofran) 4 MG tablet TAKE ONE TABLET BY MOUTH EVERY 8 HOURS NEEDED NAUSEA (VIAL) pantoprazole (PROTONIX) 40 mg, Oral, Daily before breakfast, Do not crush, chew, or split. Restasis MultiDose 0.05 % ophthalmic emulsion 1 drop, Both Eyes, 2 times daily terbinafine (LamISIL AT) 1 % cream Wash feet, dry, very well especially between toes. Apply cream between toes once or twice daily everyday until it resolves. traMADol (ULTRAM) 50 mg, Oral, Nightly PRN Follow-up: 3 months or sooner if any problem arises. Scribe Attestation: Salome Harrell, am serving as a scribe to document services personally performed by Adriane Higuera MD, based on the patient's response to questions by provider and provides statements to me. documented in this encounter Miscellaneous Notes * Assessment & Plan Note - Adriane Higuera MD - 11/20/2024 11:21 AM ESTAssociated Problem(s): Allergic rhinitis - trial of ipratropium nasal * Assessment & Plan Note - Adriane Higuera MD - 11/20/2024 11:14 AM ESTAssociated Problem(s): Dyslipidemia - Last lipid profile: 09/18/24 - Current medication: atorvastatin 80 mg qhs (rosuvastatin was contraindicated due to pt's CKD, nowESRD) - Cotninue high-intensity statin therapy - Check lipid profile with hepatic function panel annually * Assessment & Plan Note - Adriane Higuera MD - 11/20/2024 11:12 AM ESTAssociated Problem(s): Weight loss - most recent TSH was therapeutic level - increase nutritional supplement intake * Assessment & Plan Note - Adriane Higuera MD - 11/20/2024 11:10 AM ESTAssociated Problem(s): Protein calorie malnutrition (CMS/HCC) - ESRD on HD - increase nutritional supplement intake * Assessment & Plan Note - Salome Ardon MA - 11/13/2024 6:39 PM ESTAssociated Problem(s): Hypothyroidism - Most recent thyroid function test on 09/18/24 TSH 3.85 - Current replacement: Levothyroxine 50 mcg daily - Continue periodic thyroid function test. * Assessment & Plan Note - Salome Ardon MA - 11/13/2024 6:39 PM ESTAssociated Problem(s): Diabetes mellitus, type 2 (CMS/HCC) - HgbA1C is 5.7% on 06/26/24, Goal < 8% due to his age - No longer on medication. Trying to control with diet currently. Previously on metformin and glipizide. - Consider GLP-1 agonist or SGLT-2 inhibitor if A1C > 8% - Last eye exam: [facility] - Last comprehensive foot exam: 06/07/23, high-risk - Last microalbumin test: not indicated since pt has end stage renal dx. worsening proteinuria / nephropathy - Last lipid profile: 09/18/24 - ASA - prescribed - IZ - up to date * Assessment & Plan Note - Salome Ardon MA - 11/13/2024 6:39 PM ESTAssociated Problem(s): End stage renal disease (CMS/HCC) - Continue hemodialysis(MWF) - Continue to follow with Nephrology * Assessment & Plan Note - Salome Ardon MA - 11/13/2024 6:38 PM ESTAssociated Problem(s): Ischemic heart disease - [employer] [facility] - Optimize risk factor management and secondary prevention - Rescheduled an appointment due to chest pain * Assessment & Plan Note - Salome Ardon MA - 11/13/2024 6:38 PM ESTAssociated Problem(s): Essential hypertension - Goal BP < 130/80 per ACC/AHA guideline. - Slightly elevated in clinic 09/18/24 - Continue working on life style modifications. 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 ([facility])- Primary Essential hypertension Unspecified essential hypertension Ischemic heart disease Other specified forms of chronic ischemic heart disease End stage renal disease ([facility]) End stage renal disease Acquired hypothyroidism Unspecified hypothyroidism Type 2 diabetes mellitus with chronic kidney disease on chronic dialysis, without long-term current use of insulin ([facility]) Encounter for immunization Weight loss Loss of weight Protein-calorie malnutrition, unspecified severity ([facility]) Dyslipidemia Other and unspecified hyperlipidemia Allergic rhinitis, unspecified seasonality, unspecified trigger Subacute cough documented in this encounter Additional Health Concerns Assessment Noted Time PHQ-9 Depression Total Score: 0 11/13/19 25 1:31 PM EST documented as of this encounter Care Teams Exec. Creative Director Relationship Specialty Start Date End Date Adriane Higuera MD [address] [facility] [place] [address] PCP - General Family Medicine 06/14/13 documented as of this encounter
--- OUTSIDE RECORDS SUMMARY | 2024-12-04 18:45 | XMS_ITS | Encounter Summary ---
Author Organization [employer] Address [address] [facility] 7t [place] [address] Care Team Providers Care Army Ranger Name Role Phone Adriane Higuera MD Primary Care Provider [phone] Reason for Visit * Reason Onset Date Comments Durable Medical Equipment 11/30/2024 Boost Encounter Details Date Type Department Care Team ([facility] st Contact Info) Description 11/30/2024 Telephone [facility] [address] [place], [place] [phone] Adriane Higuera MD [address] [place], [place] [phone] Durable Medical Equipment (Boost) Social History Tobacco Use Types Packs/Day Years [...] AM EDT documented as of this encounter Miscellaneous Notes * Telephone Encounter - Cary Duggan - 12/04/2024 4:04 PM EST DME for Boost signed and faxed to [facility]. Confirmation received and sent to [facility]. If patient calls to check status on above, please advise them to contact [facility] director day care center . * Telephone Encounter - Zhane Alanis - 11/30/2024 7:58 AM EST DME RX for Boost generated and placed on providers desk for signature. * Telephone Encounter - Zhane Alanis - 11/30/2024 7:58 AM EST ----- Message from Adriane Higuera MD sent at 11/20/2024 11:19 AM EST ----- Please write script for nutritional supplement, Ensure or Boost. Previously on Glucerna or Boost Glucose Control. We can continue with the same product, but increase the quantity to # 90 per month. Thank you documented in this encounter Plan of Treatment Not on file documented as of this encounter Visit Diagnoses Not on filedocumented in this encounter Additional Health Concerns Assessment Noted Time PHQ-9 Depression Total Score: 0 11/13/19 1:31 PM EST documented as of this encounter Care Teams Army Ranger Relationship Specialty Start Date End Date Adriane Higuera MD [address] [place] [address] PCP - General Family Medicine 06/14/13 documented as of this encounter
--- OUTSIDE RECORDS SUMMARY | 2024-12-04 18:45 | XMS_ITS | Encounter Summary ---
Author Organization [facility] Address [address] [phone] Phone Care Team Providers Care Fabrication Engineer Name Role Phone Adriane Higuera MD Primary Care Provider [phone] Encounter Details Date Type Department Care Team (Late st Contact Info) Description 11/09/2024 Treatment [facility]. [address] [phone] Elder Alfaro MD [address] [phone] Social History Tobacco Use Types Packs/Day Years Used Date Smoking Tobacco: Former Cigarettes Q uit: 10/10/1989 Alcohol Use Standard Drinks/Week Comments No 0 (1 standard drink = 0.6 oz pur e alcohol) Sex and Gender Information Value Date Recorded Sex Assigned at Not on file Legal Sex Male 5:08 PM EST Gender Identity Not on file Sexual Orientation Not on file documented as of this encounter Miscellaneous Notes * Dialysis Note - Elder Alfaro MD - 11/09/2024 12:00 AM EST Patient: Bi Davey : 1940 Note Type: Dialysis Rounds-Basic Telehealth Service Date: 11/09/2024 Telehealth encounter using audiovisual technology, performed according to state requirements. Appropriate patient consent obtained. This patient was personally seen for a basic visit as part of routine monthly dialysis care for end stage renal disease. Attending Bisque Grader: ELDER ALFARO [facility] Schedule: Shift: 2 ADEQUACY ASSESSMENT Kt/V, Natural Log 1.67 (10/17/24) 1.53 (09/12/24) 1.60 (08/15/24) UREA REDUCTION RATIO (%) 77 (10/17/24) 74 (09/12/24) 76 (08/15/24) BUN 52 (10/17/24) 47 (09/12/24) 46 (08/15/24) BUN Post Dialysis 12 (10/17/24) 12 (09/12/24) 11 (08/15/24) Creatinine 6.32 (10/17/24) 6.81 (09/12/24) 6.48 (08/15/24) Bicarbonate (CO2) 26 (10/17/24) 27 (09/12/24) 28 (08/15/24) Sodium 139 (10/17/24) 142 (09/12/24) 142 (08/15/24) ANEMIA ASSESSMENT Hgb 10.9 (11/07/24) 11.5 (10/31/24) 10.4 (10/24/24) Iron Saturation (TSat) 17 (10/17/24) 17 (09/12/24) 21 (08/15/24) Ferritin 826 (10/17/24) 1,421 (08/15/24) Iron 27 (10/17/24) 27 (09/12/24) 29 (08/15/24) TIBC 162 (10/17/24) 162 (09/12/24) 140 (08/15/24) MCV 88.2 (10/17/24) 95.0 (09/12/24) 92.7 (08/15/24) Platelets 103 (10/17/24) 145 (09/12/24) 130 (08/15/24) BMM ASSESSMENT Calcium, Adjusted Total 10.2 10/17/24 10.4 09/12/24 10.2 08/31/24 Calcium 9.8 10/17/24 10.0 09/12/24 9.7 08/31/24 Phosphorus, Serum 4.5 10/17/24 4.3 09/12/24 5.0 08/15/24 Ca*PO4 44.1 10/17/24 43.0 09/12/24 54.5 08/15/24 PTH, Intact 249 10/17/24 192 09/12/24 93 08/15/24 Vitamin D, 25-Hydroxy 44 10/17/24 Magnesium 1.8 10/17/24 1.7 09/12/24 1.9 08/15/24 Alkaline Phosphatase 72 10/17/24 68 09/12/24 81 08/15/24 Aluminum 4 10/17/24 NUTRITION ASSESSMENT Albumin 3.5 10/17/24 3.5 09/12/24 3.4 08/31/24 Potassium 4.8 10/17/24 4.5 09/12/24 4.4 08/15/24 Hemoglobin A1C 4.0 10/17/24 ADDITIONAL LABS White Blood Cells 5.2 (10/17/24) 6.6 (09/12/24) 7.3 (08/15/24) Cholesterol 152 (10/17/24) HDL 43 (10/17/24) LDL-Calc 92 (10/17/24) Triglycerides 85 (10/17/24) Hep B Surface Antibody 13 (10/17/24) 20 (09/24/24) Uric Acid 4.5 (10/17/24) ADDITIONAL COMMENT COMMENTS: 10/09/24 stable 10/12/23 stable 10/19/24 stable 06/13/24 recent [facility] with [facility] bact ermia and ulcer wound over avg Dr Jose surg cleaned wound and was able to salvage avg On anceph x 4 wks 06/18/24 stable 06/25/24 doing ok 07/02/24 stable 07/16/24 no new issues 08/01/24 stable 08/13/24 doing ok 08/20/24 stable 08/27/24 doing well 09/02/24 stable 09/04/24 stable 09/10/24 doing well 09/17/24 stable no new issues 10/02/24 stable 10/31/24 c/o URT mena x sev days--Zpack ordered 11/09/24 stable Signed by: ELDER ALFARO MD on 11/09/2024 at 07:54:55 PM Transcribed by: ELDER ALFARO MD on 11/09/2024 at 07:54:55 PM documented in this encounter Plan of Treatment Not on file documented as of this encounter Visit Diagnoses Not on filedocumented in this encounter Care Teams Fabrication Engineer Relationship Specialty Start Date End Date Adriane Higuera MD [address] [place] [phone] PCP - General Family Medicine 07/17/24 documented as of this encounter
--- OUTSIDE RECORDS SUMMARY | 2024-12-04 18:45 | XMS_ITS | Encounter Summary ---
Author Organization [employer] Address [address] [address] [facility] [place] [address] Care Team Providers Care Subway Train Driver Name Role Phone Adriane Higuera MD Primary Care Provider [phone] Reason for Visit * Reason Onset Date Comments chart prep 11/09/2024 Encounter Details Date Type Department Care Team ([facility] st Contact Info) Description 11/09/2024 Telephone [facility] [address] [place], [place] [id number] Aydee Hein MA chart prep Social History Tobacco Use Types Packs/Day Years Used Date Smoking Tobacco: Former Cigarettes Passive Smoke Exposure: Never Smokeless Tobacco: Never Depression Answer Date Recorded Patient Health Questionnaire-9 Score 0 02/01/2023 Housing Stability Answer Date Recorded What is [...] encounter Miscellaneous Notes * Telephone Encounter - Aydee Hein MA - 11/09/2024 8:46 AM EST .Chart Prep Labs: not applicable Images: not applicable Vaccines due: Covid Due, Tdap Due, Hep B Due, Flu Due, and RSV in Pharmacy Due Referrals: Podiatry pending appt kadie requested notes Wound care requesting Screenings: Foot Exam Overdue care gaps: Sbirt and PHQ-9 documented in this encounter Plan of Treatment Not on file documented as of this encounter Visit Diagnoses Not on filedocumented in this encounter Additional Health Concerns Assessment Noted Time PHQ-9 Depression Total Score: 0 02/02/20 23 3:52 PM EDT documented as of this encounter Care Teams Subway Train Driver Relationship Specialty Start Date End Date Adriane Higuera MD [address] [place] [address] PCP - General Family Medicine 06/14/13 documented as of this encounter
--- OUTSIDE RECORDS SUMMARY | 2024-12-04 18:45 | XMS_ITS | Encounter Summary ---
Author Organization [employer] Address [address] [place] [address] Care Team Providers Care Point Of Care Specialist Name Role Phone Adriane Higuera MD Primary Care Provider [phone] Encounter Details Date Type Department Care Team (Latest Contact Info) Description 11/13/2024 Travel Social History Tobacco Use Types Packs/Day Years [...] documented as of this encounter Care Teams Point Of Care Specialist Relationship Specialty Start Date End Date Adriane Higuera MD [address] [place] [address] PCP - General Family Medicine 06/14/13 documented as of this encounter
--- OUTSIDE RECORDS SUMMARY | 2024-12-04 18:45 | XMS_ITS | Encounter Summary ---
Author Organization [employer] [facility] Address [address] [facility] [address] [place] [address] Care Team Providers Care Water Rights Specialist Name Role Phone Adriane Higuera MD Primary Care Provider [phone] Reason for Referral * Consultation (Routine) - Closed Specialty Diagnoses / Procedures Referred By Contbrit t Referred To Contact Podiatry Diagnoses Type 2 diabetes mellitus with chronic kidney disease on chronic dialysis, without long-term current use of insulin (CMS/HCC) End stage renal disease (CMS/HCC) Venous insufficiency Adriane Higuera MD [address] [place] [address] Phone: tel: fax: Trevor Russell DPM [address] [address] Phone: tel: fax: Referral ID Status Reason Start Date Expiration Date V isits Requested Visits Authorized [id number] Closed Specialty Services Required 11/30/2023 11/29/2024 1 1 Encounter Details Date Type Department Care Team (Late st Contact Info) Description 11/30/2023 Orders Only [facility] [address] [place] [address] Adriane Higuera MD [address] [place], [place] Type 2 diabetes mellitus with chronic kidney disease on chronic dialysis, 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 I have nithya holcomb 07/26/[address] you li ve. Do you have problems with any of the following? None of the above 07/26/2023 Food Insecurity Answer Date Recorded Within the past 12 months, y ou worried that your food would run out before you got money to buy more: Never True 07/26/2023 Within the past 12 months,th e food you bought just didn't last and you didn't have enough money to get more: Never True Transportation Answer Date Recorded In the past 12 months, has l ack of transportation kept you from medical appts, meetings, work or from getting things needed for daily living? No 07/26/2023 Utilities Answer Date Recorded In the past 12 months, has t he electric, gas, oil or water company threatened to shut off services in your home? No 07/26/2023 Depression Answer Date Recorded Patient Health Questionnaire-2 Score 0 02/01/2023 Sex and Gender Information Value Date Recorded Sex Assigned at Male 08/09/2022 10:15 AM EDT Legal Sex Male 10:15 AM EDT Gender Identity Male 02/01/2023 3:20 PM EDT Sexual Orientation Don't know 08/09/2022 10 :15 AM EDT documented as of this encounter Plan of Treatment Scheduled Referrals Name Type Priority Associated Diagnoses Orde r Schedule Referral to Podiatry Outpatient Referral Routine Type 2 diabetes mellitus with chronic kidney disease on chronic dialysis, without long-term current use of insulin ([facility]) End stage renal disease ([facility]) Venous insufficiency Expected: 11/30/2023 (Approximate), Expires: 11/30/2024 documented as of this encounter Visit Diagnoses Diagnosis Type 2 diabetes mellitus with chronic kidney disease on chronic dialysis, without long-term current use of insulin ([facility])- Primary End stage renal disease ([facility]) End stage renal disease Venous insufficiency Unspecified venous (peripheral) insufficiency documented in this encounter Additional Health Concerns Assessment Noted Time PHQ-9 Depression Total Score: 0 02/02/20 23 3:52 PM EDT documented as of this encounter Care Teams Water Rights Specialist Relationship Specialty Start Date End Date Adriane Higuera MD [address] [place] [address] PCP - General Family Medicine 06/14/13 documented as of this encounter
--- OUTSIDE RECORDS SUMMARY | 2024-12-04 18:45 | XMS_ITS | Encounter Summary ---
Author Organization [facility] Address [address] [address] Phone Care Team Providers Care Folder Machine Operator Name Role Phone Adriane Higuera MD Primary Care Provider [phone] Encounter Details Date Type Department Care Team (Late st Contact Info) Description 11/19/2024 Treatment [facility] [address] [address] Elder Alfaro MD [address] [address] Social History Tobacco Use Types [...] Dialysis Note - Elder Alfaro MD - 11/19/2024 12:00 AM EST Patient: Bi Davey : 1940 Note Type: Dialysis Rounds-Basic Service Date: 11/19/2024 This patient was personally seen for a basic visit as part of routine monthly dialysis care for end stage renal disease. Attending Brush Trimming Machine Setter: ELDER ALFARO MD Dialysis Location: [facility] Schedule: Shift: 2 ADEQUACY ASSESSMENT Kt/V, Natural Log 1.35 (11/14/24) 1.67 (10/17/24) 1.53 (09/12/24) UREA REDUCTION RATIO (%) 70 (11/14/24) 77 (10/17/24) 74 (09/12/24) BUN 54 (11/14/24) 52 (10/17/24) 47 (09/12/24) BUN Post Dialysis 16 (11/14/24) 12 (10/17/24) 12 (09/12/24) Creatinine 6.45 (11/14/24) 6.32 (10/17/24) 6.81 (09/12/24) Bicarbonate (CO2) 24 (11/14/24) 26 (10/17/24) 27 (09/12/24) Sodium 140 (11/14/24) 139 (10/17/24) 142 (09/12/24) ANEMIA ASSESSMENT Hgb 11.5 (11/14/24) 10.9 (11/07/24) 11.5 (10/31/24) Iron Saturation (TSat) 17 (11/14/24) 17 (10/17/24) 17 (09/12/24) Ferritin 1,543 (11/14/24) 826 (10/17/24) 1,421 (08/15/24) Iron 24 (11/14/24) 27 (10/17/24) 27 (09/12/24) TIBC 141 (11/14/24) 162 (10/17/24) 162 (09/12/24) MCV 91.3 (11/14/24) 88.2 (10/17/24) 95.0 (09/12/24) Platelets 91 (11/14/24) 103 (10/17/24) 145 (09/12/24) BMM ASSESSMENT Calcium, Adjusted Total 9.9 11/14/24 10.2 10/17/24 10.4 09/12/24 Calcium 9.4 11/14/24 9.8 10/17/24 10.0 09/12/24 Phosphorus, Serum 4.2 11/14/24 4.5 10/17/24 4.3 09/12/24 Ca*PO4 39.5 11/14/24 44.1 10/17/24 43.0 09/12/24 PTH, Intact 274 11/14/24 249 10/17/24 192 09/12/24 Vitamin D, 25-Hydroxy 44 10/17/24 Magnesium 1.6 11/14/24 1.8 10/17/24 1.7 09/12/24 Alkaline Phosphatase 78 11/14/24 72 10/17/24 68 09/12/24 Aluminum 4 10/17/24 NUTRITION ASSESSMENT Albumin 3.4 11/14/24 3.5 10/17/24 3.5 09/12/24 Potassium 5.0 11/14/24 4.8 10/17/24 4.5 09/12/24 Hemoglobin A1C 4.0 10/17/24 ADDITIONAL LABS White Blood Cells 4.1 (11/14/24) 5.2 (10/17/24) 6.6 (09/12/24) Cholesterol 152 (10/17/24) HDL 43 (10/17/24) LDL-Calc 92 (10/17/24) Triglycerides 85 (10/17/24) Hep B Surface Antibody 13 (10/17/24) 20 (09/24/24) Uric Acid 4.5 (10/17/24) ADDITIONAL COMMENT COMMENTS: 11/19/24 doing ok 11/21/24 stable 10/09/24 stable 10/12/23 stable 10/19/24 stable 06/13/24 recent [facility] with MSSA bact ermia and ulcer wound over avg Dr Rebeca doyle cleaned wound and was able to salvage [...] stable Signed by: ELDER ALFARO MD on 11/22/2024 at 06:00:10 AM documented in this encounter Plan of Treatment Not on file documented as of this encounter Visit Diagnoses Not on filedocumented in this encounter Care Teams Folder Machine Operator Relationship Specialty Start Date End Date Adriane Higuera MD [address] [place] [address] PCP - General Family Medicine 07/17/24 documented as of this encounter
--- OUTSIDE RECORDS SUMMARY | 2024-12-04 18:45 | XMS_ITS | Encounter Summary ---
Author Organization [facility] Address [address] [facility] [address] [place] [address] Phone Care Team Providers Care Engineering Technical Writer Name Role Phone Adriane Higuera MD Primary Care Provider [phone] Encounter Details Date Type Department Care Team (Late st Contact Info) Description 11/07/2024 Orders Only [facility] [address] [facility] [address] [place] [address] Eleuterio Rob MD [address] [address] Social History Tobacco Use Types [...] on file documented as of this encounter Plan of Treatment Not on file documented as of this encounter Procedures Procedure Name Priority Date/Time Associated Diagnosis Comments HEMOGLOBIN AND HEMATOCRIT, BLOOD Routine 11/28/2024 3:00 AM EST HEMOGLOBIN AND HEMATOCRIT, BLOOD Routine 11/21/2024 3:00 AM EST LIH () Routine 11/14/2024 3:00 AM EST KT/V NATURAL LOG, URR () Routine 11/14/2024 3:00 AM EST CALCIUM PHOSPHORUS PRODUCT, ADJUSTED (HC) Routine 11/14/2024 3:00 AM EST TRANSFERRIN SATURATION Routine 3:00 AM EST CBC AND DIFFERENTIAL Routine 11/14/2024 3:00 AM EST ALT Routine 11/14/2024 3:00 AM EST AST Routine 11/14/2024 3:00 AM EST PROTEIN, TOTAL, SERUM Routine 11/14/2024 3:00 AM EST ALKALINE PHOSPHATASE Routine 11/14/2024 3:00 AM EST PTH, INTACT Routine 11/14/2024 3:00 AM EST MAGNESIUM Routine 11/14/2024 3:00 AM EST LACTATE DEHYDROGENASE Routine 11/14/2024 3:00 AM EST GLUCOSE, RANDOM Routine 11/14/2024 3:00 AM EST FERRITIN Routine 11/14/2024 3:00 AM EST CREATININE, SERUM Routine 11/14/2024 3:0 0 AM EST BILIRUBIN, TOTAL Routine 11/14/2024 3:00 AM EST ELECTROLYTE PANEL Routine 11/14/2024 3:0 0 AM EST HEMOGLOBIN AND HEMATOCRIT, BLOOD Routine 11/07/2024 3:00 AM EST documented in this encounter Results * (ABNORMAL) Hemoglobin and hematocrit (11/28/2024 3:00 AM EST) Hgb 10.1(L) 13.7 - 17.5 g/dL [facility] Hematocrit 33.2(L) 40.1 - 51.0 % [facility] Hemoglobin x 3 30.3(L) 41.1 - 52.5 g/dL [facility] 11/28/2024 3:00 AM EST 11/30/2024 12:55 PM EST Eleuterio Rob MD LAB BLOOD ORDERABLES Final Re sult Performing Organization Address [facility] Co de Phone Number [facility] [address] [place] [address] * (ABNORMAL) Hemoglobin and hematocrit (11/21/2024 3:00 AM EST) Hgb 10.6(L) 13.7 - 17.5 g/dL [facility] Hematocrit 35.3(L) 40.1 - 51.0 % [facility] Hemoglobin x 3 31.8(L) 41.1 - 52.5 g/dL [facility] 11/21/2024 3:00 AM EST 11/22/2024 2:39 PM EST Eleuterio Rob MD LAB BLOOD ORDERABLES Final Re sult Performing Organization Address [facility] [[email or web address]] de Phone Number [facility] [address] [place] [address] * PTH, Intact (11/14/2024 3:00 AM EST) PTH, Intact 274 160 - 721 pg/mL [facility] Comment: Suggested (KDIGO) ESRD maintenance range is two to nine times the upper normal limit (80.1 pg/mL) for the laboratory. 11/14/2024 3:00 AM EST 11/15/2024 3:02 PM EST Eleuterio Rob MD LAB BLOOD ORDERABLES Final Re sult Performing Organization Address [facility] Co de Phone Number [facility] [address] [place] [address] * (ABNORMAL) Ferritin (11/14/2024 3:00 AM EST) Ferritin 1,543(H) 22 - 322 ng/mL [facility] 11/14/2024 3:00 AM EST 11/15/2024 3:02 PM EST Eleuterio Rob MD LAB BLOOD ORDERABLES Final Re sult Performing Organization Address [facility] [[email or web address]] de Phone Number [facility] [address] [place] [address] * (ABNORMAL) TSAT (11/14/2024 3:00 AM EST) Pathologist [facility] Iron 24(L) 65 - 175 ug/dL [facility] Transferrin 101(L) 215 - 365 mg/dL [facility] TIBC 141(L) 211 - 406 ug/dL [facility] Iron Saturation (TSat) 17(L) 22 - 52 % [facility] 11/14/2024 3:00 AM EST 11/15/2024 3:02 PM EST Eleuterio Rob MD LAB BLOOD ORDERABLES Final Re sult Performing Organization Address [facility] de Phone Number [facility] [address] [place] [address] * Protein, total (11/14/2024 3:00 AM EST) Pathologist [facility] Total Protein 6.4 6.4 - 8.9 g/dL [facility] 11/14/2024 3:00 AM EST 11/15/2024 3:02 PM EST Eleuterio Rob MD LAB BLOOD ORDERABLES Final Re sult Performing Organization Address [facility] de Phone Number [facility] [address] [place] [address] * Electrolyte panel (11/14/2024 3:00 AM EST) Sodium 140 136 - 145 mEq/L [facility] Potassium 5.0 3.4 - 5.0 mEq/L [facility] Chloride 103 98 - 107 mEq/L [facility] Bicarbonate (CO2) 24 21 - 31 mEq/L [facility] Anion Gap 13 3 - 14 mEq/L [facility] 11/14/2024 3:00 AM EST 11/15/2024 3:02 PM EST Eleuterio Rob MD LAB BLOOD ORDERABLES Final Re sult Performing Organization Address [facility] [[email or web address]] de Phone Number [facility] [address] [place] [address] * (ABNORMAL) Magnesium (11/14/2024 3:00 AM EST) Magnesium 1.6(L) 1.9 - 2.7 mg/dL [facility] 11/14/2024 3:00 AM EST 11/15/2024 3:02 PM EST Eleuterio Rob MD LAB BLOOD ORDERABLES Final Re sult Performing Organization Address [facility] de Phone Number [facility] [address] [place] [address] * LIH (11/14/2024 3:00 AM EST) Lipemia Normal Normal [facility] Icterus Normal Normal [facility] Hemolysis Normal Normal [facility] 11/14/2024 3:00 AM EST 11/15/2024 3:02 PM EST Eleuterio Rob MD LAB [id number] SOLICITED RESULTS Final Result Performing Organization Address [facility] [[email or web address]] de Phone Number [facility] [address] [place] [address] * (ABNORMAL) Lactate dehydrogenase (11/14/2024 3:00 AM EST) LDH 369(H) 120 - 246 U/L [facility] 11/14/2024 3:00 AM EST 11/15/2024 3:02 PM EST Eleuterio Rob MD LAB BLOOD ORDERABLES Final Re sult Performing Organization Address [facility] [[email or web address]] de Phone Number [facility] [address] [place] [address] * (ABNORMAL) Glucose, random (11/14/2024 3:00 AM EST) Glucose 154(H) 74 - 109 mg/dL [facility] 11/14/2024 3:00 AM EST 11/15/2024 3:02 PM EST Eleuterio Rob MD LAB BLOOD ORDERABLES Final Re sult Performing Organization Address [facility] Co de Phone Number [facility] [address] [place] [address] * (ABNORMAL) Creatinine, serum (11/14/2024 3:00 AM EST) Creatinine 6.45(H) 0.70 - 1.30 mg/dL [facility] 11/14/2024 3:00 AM EST 11/15/2024 3:02 PM EST Eleuterio Rob MD LAB BLOOD ORDERABLES Final Re sult Performing Organization Address [facility] de Phone Number [facility] [address] [place] [address] * AST (11/14/2024 3:00 AM EST) AST (SGOT) 21 <34 U/L [facility] 11/14/2024 3:00 AM EST 11/15/2024 3:02 PM EST Eleuterio Rob MD LAB BLOOD ORDERABLES Final Re sult Performing Organization Address [facility] [[email or web address]] de Phone Number [facility] [address] [place] [address] * (ABNORMAL) Bilirubin, total (11/14/2024 3:00 AM EST) Total Bilirubin 0.2(L) 0.3 - 1.2 mg/dL [facility] 11/14/2024 3:00 AM EST 11/15/2024 3:02 PM EST Eleuterio oRb MD LAB BLOOD ORDERABLES Final Re sult Performing Organization Address City/[facility]/ZIP Co de Phone Number [facility] [address] [place] [address] * Alkaline phosphatase (11/14/2024 3:00 AM EST) Alkaline Phosphatase 78 46 - 116 U/L [facility] 11/14/2024 3:00 AM EST 11/15/2024 3:02 PM EST Eleuterio Rob MD LAB BLOOD ORDERABLES Final Re sult Performing Organization Address [facility] Co de Phone Number [facility] [address] [place] [address] * (ABNORMAL) Calcium Phosphorus Product, Adjusted (11/14/2024 3:00 AM EST) Albumin 3.4(L) 3.6 - 5.4 g/dL [facility] Calcium 9.4 8.6 - 10.3 mg/dL [facility] Phosphorus, Serum 4.2 2.5 - 5.0 mg/dL [facility] Ca*PO4 39.5 <55.0 mg2/dL2 [facility] Calcium, Adjusted Total 9.9 8.6 - 10.3 mg/dL [facility] CA*PO4 CORRCTD 41.6 <55.0 mg2/dL2 [facility] 11/14/2024 3:00 AM EST 11/15/2024 3:02 PM EST Eleuterio Rob MD LAB [id number] SOLICITED RESULTS Final Result Performing Organization Address City/[facility] Co de Phone Number [facility] [address] [place] [address] * ALT (11/14/2024 3:00 AM EST) ALT (SGPT) 15 10 - 49 U/L [facility] 11/14/2024 3:00 AM EST 11/15/2024 3:02 PM EST Eleuterio Rob MD LAB BLOOD ORDERABLES Final Re sult Performing Organization Address City/[facility]/ZIP Co de Phone Number [facility] [address] [place] [address] * (ABNORMAL) Kt/V Natural Log, URR (11/14/2024 3:00 AM EST) Pathologist [facility] Treatment Time 215 min [facility] Pre-Weight, lb 74.6 kg [facility] Post-Weight, lb 73.8 kg [facility] Ultrafiltration Rate 3 <=13 mL/kg/hr [facility] Comment: Recommend achieving Ultrafiltration Rate (UFR) <=10 mL/kg/hr References: Kaitlin LOPEZ et al. Kidney Int. 2010; 79(2):250-257 BUN Post Dialysis 16 7 - 25 mg/dL [facility] BUN 54(H) 7 - 25 mg/dL [facility] UREA REDUCTION RATIO (%) 70 >=65 % [facility] Kt/V Natural Log 1.35 >=1.2 [facility] 11/14/2024 3:00 AM EST 11/15/2024 1:05 PM EST Eleuterio Rob MD LAB [id number] SOLICITED RESULTS Final Result Performing Organization Address [facility] Co de Phone Number [facility] [address] [place] [address] * (ABNORMAL) CBC and Differential (11/14/2024 3:00 AM EST) Pathologist [facility] DIFFERENTIAL MANUAL, 2 Not Indicated [facility] White Blood Cells 4.1(L) 4.2 - 9.1 K/uL [facility] RBC 4.26(L) 4.63 - 6.08 M/uL [facility] Hgb 11.5(L) 13.7 - 17.5 g/dL [facility] Hemoglobin x 3 34.5(L) 41.1 - 52.5 g/dL [facility] Hematocrit 38.9(L) 40.1 - 51.0 % [facility] MCV 91.3 79.0 - 92.2 fL [facility] MCH 27.0 25.7 - 32.2 pg [facility] MCHC 29.6(L) 32.3 - 36.5 g/dL [facility] Platelets 91(L) 163 - 337 K/uL [facility] RDW 18.9(H) 11.6 - 14.4 % [facility] Neutrophils Relative 63.6 34.0 - 67.9 % [facility] Lymphocytes Relative 23.4 21.8 - 53.1 % [facility] Monocytes 9.0 5.3 - 12.2 % [facility] Eosinophils Relative 2.0 0.8 - 7.0 % [facility] Basophils Relative 1.5(H) 0.2 - 1.2 % [facility] Immature Granulocytes 0.5 0.0 - 1.0 % [facility] 11/14/2024 3:00 AM EST 11/15/2024 12:57 PM EST Eleuterio Rob MD LAB BLOOD ORDERABLES Final Re sult Performing Organization Address City/[facility] [[email or web address]] de Phone Number [facility] [address] [place] [address] * (ABNORMAL) Hemoglobin and hematocrit (11/07/2024 3:00 AM EST) Hgb 10.9(L) 13.7 - 17.5 g/dL [facility] Hematocrit 37.4(L) 40.1 - 51.0 % [facility] Hemoglobin x 3 32.7(L) 41.1 - 52.5 g/dL [facility] 11/07/2024 3:00 AM EST 11/08/2024 12:39 PM EST Eleuterio Rob MD LAB BLOOD ORDERABLES Final Re sult Performing Organization Address City/[facility] Co de Phone Number [facility] [address] [place] [address] documented in this encounter Visit Diagnoses Not on filedocumented in this encounter Care Teams Engineering Technical Writer Relationship Specialty Start Date End Date Adriane Higuera MD [address] [place] [address] PCP - General Family Medicine 07/17/24 documented as of this encounter
--- OUTSIDE RECORDS SUMMARY | 2024-12-04 18:45 | XMS_ITS | Encounter Summary ---
Author Organization [facility] Address [address] [address] Phone Care Team Providers Care Medical Science Liaison Name Role Phone Adriane Higuera MD Primary Care Provider [phone] Encounter Details Date Type Department Care Team (Late st Contact Info) Description 11/21/2024 Treatment [facility] [address] [address] Elder Alfaro MD [address] [address] Social History Tobacco Use Types [...] Dialysis Note - Elder Alfaro MD - 11/21/2024 12:00 AM EST Patient: Bi Davey : 1940 Note Type: Dialysis Rounds-Comp Service Date: 11/21/2024 This patient was personally seen for a complete visit as part of routine monthly dialysis care for end stage renal disease. Attending Health Promotion Coordinator: ELDER ALFARO MD Dialysis Location: [facility] Schedule: Shift: 2 OVERVIEW Patient is stable. ADEQUACY ASSESSMENT Kt/V, Natural Log 1.35 (11/14/24) [...] Uric Acid 4.5 (10/17/24) ADDITIONAL COMMENT COMMENTS: 11/21/24 stable 10/09/24 stable 10/12/23 stable 10/19/24 stable 06/13/24 recent c hosp with MSSA bact ermia and ulcer [...] by: ELDER ALFARO MD on 11/22/2024 at 05:51:28 AM documented in this encounter Plan of Treatment Not on file documented as of this encounter Visit Diagnoses Not on filedocumented in this encounter Care Teams Medical Science Liaison Relationship Specialty Start Date End Date Adriane Higuera MD [address] [place] [address] PCP - General Family Medicine 07/17/24 documented as of this encounter
--- OUTSIDE RECORDS SUMMARY | 2024-12-04 18:46 | XMS_ITS | Clinical Summary ---
Author Organization [facility] Facility Address [address] [address] Care Team Providers Care Plug Overwrap Machine Tender Name Role Phone Adriane Higuera MD Primary Care Provider [phone] Allergies No known active allergies Medications acetaminophen (TYLENOL) 325 MG tablet Take 1 tablet by mouth 1 (one) time each day Active allopurinol (ZYLOPRIM) 100 MG tablet Take 1 tablet by mouth 1 (one) time each day Active alprostadil ([place]) 1000 MCG pellet Comments: Patient Notes: 1 suppository intra-urethral daily Active amLODIPine (NORVASC) 5 MG tablet Take 1 tablet by mouth 1 (one) time each day Active aspirin (ST EVELIN) 81 MG EC tablet Take 1 tablet by mouth 1 (one) time each day Active atorvastatin (LIPITOR) 80 MG tablet Take 1 tablet by mouth at bed time Active cetirizine (ZyrTEC) 5 MG tablet Take 1 tablet by mouth 1 (one) time each day Active cyanocobalamin (VITAMIN B-12) 1000 MCG tablet Take 1 tablet by mouth 1 (one) time each day Active doxycycline (ADOXA) 100 MG tablet Take 1 tablet by mouth 2 (two) times a day Active ipratropium (ATROVENT) 0.03 % nasal spray Administer 1 spray into each nostril 1 (one) time each day Active lactulose (CHRONULAC) 10 GM/15ML solution Take 10 g by mouth 1 (one) time each day Active levothyroxine (SYNTHROID, LEVOTHROID) 50 MCG tablet Take 1 tablet by mouth 1 (one) time each day Active metoprolol succinate XL (TOPROL-XL) 100 MG 24 hr tablet Take 2 tablets by mouth 1 (one) time each day Active omeprazole OTC (PriLOSEC OTC) 20 MG EC tablet Take 2 tablets by mouth 1 (one) time each day Active Restasis MultiDose 0.05 % ophthalmic emulsion INSTILL 1 DROP INTO AFFECTED EYE EVERY DAY FOR 7 DAYS 5.5 mL 5 2 Active midodrine (PROAMATINE) 5 MG tablet Take 2 tablets (10 mg total) by mouth in the morning and 2 tablets (10 mg total) in the evening and 2 tablets (10 mg total) before bedtime. 36 tablet 2 2 Active Active Problems Problem Noted Date Diagnosed Date Dependence on renal dialysis 02/05/2021 End stage renal disease 02/05/2021 Essential hypertension 12/11/2020 Hyperkalemia 12/11/2020 Hypertensive heart disease without congestive he art failure 12/11/2020 Hypertensive renal disease 12/11/2020 Proteinuria 12/11/2020 Renal disorder due to type 2 diabetes mellitus 0 12/11/2020 Urinary tract obstruction 12/11/2020 Diabetes mellitus 02/12/2014 Resolved Problems Problem Noted Date Diagnosed Date Resolved Date Chronic kidney disease stage 3 12/11/2020 12/11/2020 Encounters Date Type Department Care Team Description 11/21/2024 Treatment [facility] [address] [address] Eleuterio Rob MD 11/19/2024 Treatment [facility] [address] [address] Eleuterio Rob MD 11/09/2024 Treatment [facility] [address] [address] Eleuterio Rob MD 11/07/2024 Orders Only [facility] [address] [address] Eleuterio Rob MD 10/31/2024 Treatment [facility] [address] [address] Eleuterio Rob MD 10/19/2024 Treatment [facility] [address] [address] Eleuterio Rob MD 10/12/2024 Treatment [facility] [address] [address] Eleuterio Rob MD 10/09/2024 Treatment [facility] [address] [address] Eleuterio Rob MD 10/02/2024 Treatment [facility] [address] [address] Eleuterio Rob MD 09/24/2024 Treatment [facility] [address] [address] Eleuterio Rob MD 09/17/2024 Treatment [facility] [address] [address] Eleuterio Rob MD 09/10/2024 Treatment [facility] [address] [address] Eleuterio Rob MD 09/04/2024 Treatment [facility] [address] [address] Eleuterio Rob MD from Last 3 Months Immunizations Name Administration Dates Next Due Pneumococcal Polysaccharide 01/24/2014 Family History Medical History Relation Comments Cancer Mother stomach Relation Status Comments Father Unknown Mother Unknown Social History Tobacco Use Types Packs/Day Years Used Date Smoking Tobacco: Former Cigarettes Q uit: 10/10/1989 Alcohol Use Standard Drinks/Week Comments No 0 (1 standard drink = 0.6 oz pur e alcohol) Sex and Gender Information Value Date Recorded Sex Assigned at Not on file Legal Sex Male 5:08 PM EST Gender Identity Not on file Sexual Orientation Not on file Last Filed Vital Signs Vital Sign Reading Time Taken Comments Blood Pressure 100/62 07/13/2022 12:00 PM EDT Pulse 102 07/13/2022 12:00 PM EDT Temperature - - Respiratory Rate - - Oxygen Saturation 94% 07/13/2022 12:00 PM EDT Inhaled Oxygen Concentration - - Weight 86.5 kg (190 lb 9.6 oz) 07/13/2022 12:00 PM EDT Height 175.3 cm (5' 9 ) 07/13/2022 12:00 PM EDT Body Mass Index 28.15 07/13/2022 12:00 PM EDT Plan of Treatment Health Maintenance Due Date Last Done Comments Hepatitis B Vaccine (1 of 5 - Risk Dialysis 4-dose series) 1960 09/27/2014, 07/16/2014, 06/12/2014 Diabetes: Ophthalmology Exam 11/10/2020 Diabetes: Pedal Pulse Checked 11/10/2020 Diabetes: Sensory Foot Exam 11/10/2020 Diabetes: Visual Foot Exam 11/10/2020 Influenza Vaccine (#1) 2024 9, 06/26/2018, 07/07/2017, Additional history exists Diabetes: Hemoglobin A1C 01/15/2025 025, 06/26/2024, 09/06/2023, Additional history exists Pneumococcal Vaccine: 65+ Years Completed 05/11/2021, 07/29/2016, 02/23/2014, Additional history exists Procedures Procedure Name Priority Date/Time Associated Diagnosis Comments HEMOGLOBIN AND HEMATOCRIT, BLOOD Routine 11/28/2024 3:00 AM EST HEMOGLOBIN AND HEMATOCRIT, BLOOD Routine 11/21/2024 3:00 AM EST PTH, INTACT Routine 11/14/2024 3:00 AM EST FERRITIN Routine 11/14/2024 3:00 AM EST TRANSFERRIN SATURATION Routine 3:00 AM EST PROTEIN, TOTAL, SERUM Routine 11/14/2024 3:00 AM EST ELECTROLYTE PANEL Routine 11/14/2024 3:0 0 AM EST MAGNESIUM Routine 11/14/2024 3:00 AM EST LIH (HC) Routine 11/14/2024 3:00 AM EST LACTATE DEHYDROGENASE Routine 11/14/2024 3:00 AM EST GLUCOSE, RANDOM Routine 11/14/2024 3:00 AM EST CREATININE, SERUM Routine 11/14/2024 3:0 0 AM EST AST Routine 11/14/2024 3:00 AM EST BILIRUBIN, TOTAL Routine 11/14/2024 3:00 AM EST ALKALINE PHOSPHATASE Routine 11/14/2024 3:00 AM EST CALCIUM PHOSPHORUS PRODUCT, ADJUSTED (HC) Routine 11/14/2024 3:00 AM EST ALT Routine 11/14/2024 3:00 AM EST KT/V NATURAL LOG, URR (HC) Routine 11/14/2024 3:00 AM EST CBC AND DIFFERENTIAL Routine 11/14/2024 3:00 AM EST HEMOGLOBIN AND HEMATOCRIT, BLOOD Routine 11/07/2024 3:00 AM EST HEMOGLOBIN AND HEMATOCRIT, BLOOD Routine 10/31/2024 3:00 AM EST HEMOGLOBIN AND HEMATOCRIT, BLOOD Routine 10/24/2024 3:00 AM EST ALUMINUM LEVEL Routine 10/17/2024 3:00 AM EST HEPATITIS C ABS W/REFLEX RNA DETECTR Routine 10/17/2024 3:00 AM EST CONFIRMATION TEST HCV Routine 10/17/2024 3:00 AM EST TRANSFERRIN SATURATION Routine 3:00 AM EST URIC ACID Routine 10/17/2024 3:00 AM EST PROTEIN, TOTAL, SERUM Routine 10/17/2024 3:00 AM EST LIPID PANEL Routine 10/17/2024 3:00 AM EST ELECTROLYTE PANEL Routine 10/17/2024 3:0 0 AM EST MAGNESIUM Routine 10/17/2024 3:00 AM EST LACTATE DEHYDROGENASE Routine 10/17/2024 3:00 AM EST LIH (HC) Routine 10/17/2024 3:00 AM EST AST Routine 10/17/2024 3:00 AM EST GLUCOSE, RANDOM Routine 10/17/2024 3:00 AM EST CREATININE, SERUM Routine 10/17/2024 3:0 0 AM EST BILIRUBIN, TOTAL Routine 10/17/2024 3:00 AM EST ALKALINE PHOSPHATASE Routine 10/17/2024 3:00 AM EST ALT Routine 10/17/2024 3:00 AM EST CALCIUM PHOSPHORUS PRODUCT, ADJUSTED (HC) Routine 10/17/2024 3:00 AM EST VITAMIN D 25 HYDROXY Routine 10/17/2024 3:00 AM EST PTH, INTACT Routine 10/17/2024 3:00 AM EST FERRITIN Routine 10/17/2024 3:00 AM EST HEPATITIS B SURFACE ANTIBODY QUANT Routine 10/17/2024 3:00 AM EST HEMOGLOBIN A1C Routine 10/17/2024 3:00 AM EST KT/V NATURAL LOG, URR (HC) Routine 10/17/2024 3:00 AM EST CBC AND DIFFERENTIAL Routine 10/17/2024 3:00 AM EST HEMOGLOBIN AND HEMATOCRIT, BLOOD Routine 10/07/2024 3:00 AM EST HEMOGLOBIN AND HEMATOCRIT, BLOOD Routine 10/02/2024 3:00 AM EST HEMOGLOBIN AND HEMATOCRIT, BLOOD Routine 09/26/2024 3:00 AM EST HEPATITIS B SURFACE ANTIBODY QUANT Routine 09/24/2024 3:00 AM EST HEMOGLOBIN AND HEMATOCRIT, BLOOD Routine 09/19/2024 3:00 AM EST TRANSFERRIN SATURATION Routine 3:00 AM EST PROTEIN, TOTAL, SERUM Routine 09/12/2024 3:00 AM EST MAGNESIUM Routine 09/12/2024 3:00 AM EST ELECTROLYTE PANEL Routine 09/12/2024 3:0 0 AM EST LIH (HC) Routine 09/12/2024 3:00 AM EST GLUCOSE, RANDOM Routine 09/12/2024 3:00 AM EST LACTATE DEHYDROGENASE Routine 09/12/2024 3:00 AM EST CREATININE, SERUM Routine 09/12/2024 3:0 0 AM EST BILIRUBIN, TOTAL Routine 09/12/2024 3:00 AM EST AST Routine 09/12/2024 3:00 AM EST ALT Routine 09/12/2024 3:00 AM EST ALKALINE PHOSPHATASE Routine 09/12/2024 3:00 AM EST CALCIUM PHOSPHORUS PRODUCT, ADJUSTED (HC) Routine 09/12/2024 3:00 AM EST PTH, INTACT Routine 09/12/2024 3:00 AM EST KT/V NATURAL LOG, URR (HC) Routine 09/12/2024 3:00 AM EST CBC AND DIFFERENTIAL Routine 09/12/2024 3:00 AM EST HEMOGLOBIN AND HEMATOCRIT, BLOOD Routine 09/04/2024 3:00 AM EST from Last 3 Months Results * (ABNORMAL) Hemoglobin and hematocrit (11/28/2024 3:00 AM EST) Only the most recent of10 resultswithin the time period is included. Hgb 10.1(L) 13.7 - 17.5 g/dL [facility] Hematocrit 33.2(L) 40.1 - 51.0 % [facility] Hemoglobin x 3 30.3(L) 41.1 - 52.5 g/dL [facility] 11/28/2024 3:00 AM EST 11/30/2024 12:55 PM EST us Eleuterio Rob MD LAB BLOOD ORDERABLES Final Re sult [facility] [address] [place] [address] * LIH (11/14/2024 3:00 AM EST) Only the most recent of3 resultswithin the time period is included. Lipemia Normal Normal [facility] Icterus Normal Normal [facility] Hemolysis Normal Normal [facility] 11/14/2024 3:00 AM EST 11/15/2024 3:02 PM EST Eleuterio Rob MD LAB [id number] SOLICITED RESULTS Final Result Performing Organization Address [facility] Co de Phone Number [facility] [address] [place] [address] * (ABNORMAL) Kt/V Natural Log, URR (11/14/2024 3:00 AM EST) Only the most recent of3 resultswithin the time period is included. Treatment Time 215 min [facility] Pre-Weight, lb [...] 1:05 PM EST Eleuterio Rob MD LAB [id number] SOLICITED RESULTS Final Result Performing Organization Address [facility] Co de Phone Number [facility] [address] [place] [address] * (ABNORMAL) Calcium Phosphorus Product, Adjusted (11/14/2024 3:00 AM EST) Only the most recent of3 resultswithin the time period is included. Albumin 3.4(L) 3.6 - 5.4 g/dL [facility] Calcium 9.4 8.6 - 10.3 mg/dL [facility] Phosphorus, Serum 4.2 2.5 - 5.0 mg/dL [facility] Ca*PO4 39.5 <55.0 mg2/dL2 [facility] Calcium, Adjusted Total 9.9 8.6 - 10.3 mg/dL [facility] CA*PO4 CORRCTD 41.6 <55.0 mg2/dL2 [facility] 11/14/2024 3:00 AM EST 11/15/2024 3:02 PM EST Eleuterio Rob MD LAB [id number] SOLICITED RESULTS Final Result Performing Organization Address [facility] de Phone Number [facility] [address] [place] [address] * (ABNORMAL) TSAT (11/14/2024 3:00 AM EST) Only the most recent of3 resultswithin the time period is included. [facility] Iron 24(L) 65 - 175 ug/dL [facility] Transferrin 101(L) 215 - 365 mg/dL [facility] TIBC 141(L) 211 - 406 ug/dL [facility] Iron Saturation (TSat) 17(L) 22 - 52 % [facility] 11/14/2024 3:00 AM EST 11/15/2024 3:02 PM EST Eleuterio Rob MD LAB BLOOD ORDERABLES Final Re sult Performing Organization Address [facility] de Phone Number [facility] [address] [place] [address] * (ABNORMAL) CBC and Differential (11/14/2024 3:00 AM EST) Only the most recent of3 resultswithin the time period is included. [facility] DIFFERENTIAL MANUAL, 2 Not Indicated [facility] White [...] ORDERABLES Final Re sult Performing Organization Address [facility] Co de Phone Number [facility] [address] [place] [address] * ALT (11/14/2024 3:00 AM EST) Only the most recent of3 resultswithin the time period is included. ALT (SGPT) 15 10 - 49 U/L [facility] 11/14/2024 3:00 AM EST 11/15/2024 3:02 PM EST Eleuterio Rob MD LAB BLOOD ORDERABLES Final Re sult Performing Organization Address [facility] Co de Phone Number [facility] [address] [place] [address] * AST (11/14/2024 3:00 AM EST) Only the most recent of3 resultswithin the time period is included. AST (SGOT) 21 <34 U/L [facility] 11/14/2024 3:00 AM EST 11/15/2024 3:02 PM EST Eleuterio Rob MD LAB BLOOD ORDERABLES Final Re sult Performing Organization Address [facility] de Phone Number [facility] [address] [place] [address] * Protein, total (11/14/2024 3:00 AM EST) Only the most recent of3 resultswithin the time period is included. Total Protein 6.4 6.4 - 8.9 g/dL [facility] 11/14/2024 3:00 AM EST 11/15/2024 3:02 PM EST Eleuterio Rob MD LAB BLOOD ORDERABLES Final Re sult Performing Organization Address [facility] de Phone Number [facility] [address] [place] [address] * Alkaline phosphatase (11/14/2024 3:00 AM EST) Only the most recent of3 resultswithin the time period is included. Alkaline Phosphatase 78 46 - 116 U/L [facility] 11/14/2024 3:00 AM EST 11/15/2024 3:02 PM EST Eleuterio Rob MD LAB BLOOD ORDERABLES Final Re sult Performing Organization Address [facility] de Phone Number [facility] [address] [place] [address] * PTH, Intact (11/14/2024 3:00 AM EST) Only the most recent of3 resultswithin the time period is included. PTH, Intact 274 160 - 721 pg/mL [facility] Comment: Suggested (KDIGO) ESRD maintenance range is two to nine times the upper normal limit (80.1 pg/mL) for the laboratory. 11/14/2024 3:00 AM EST 11/15/2024 3:02 PM EST Eleuterio Rob MD LAB BLOOD ORDERABLES Final Re sult Performing Organization Address [facility] de Phone Number [facility] [address] [place] [address] * (ABNORMAL) Magnesium (11/14/2024 3:00 AM EST) Only the most recent of3 resultswithin the time period is included. Magnesium 1.6(L) 1.9 - 2.7 mg/dL [facility] 11/14/2024 3:00 AM EST 11/15/2024 3:02 PM EST Eleuterio Rob MD LAB BLOOD ORDERABLES Final Re sult Performing Organization Address [facility] Co de Phone Number [facility] [address] [place] [address] * (ABNORMAL) Lactate dehydrogenase (11/14/2024 3:00 AM EST) Only the most recent of3 resultswithin the time period is included. LDH 369(H) 120 - 246 U/L [facility] 11/14/2024 3:00 AM EST 11/15/2024 3:02 PM EST Eleuterio Rob MD LAB BLOOD ORDERABLES Final Re sult Performing Organization Address [facility] [address] [place] [address] * (ABNORMAL) Glucose, random (11/14/2024 3:00 AM EST) Only the most recent of3 resultswithin the time period is included. Glucose 154(H) 74 - 109 mg/dL [facility] 11/14/2024 3:00 AM EST 11/15/2024 3:02 PM EST Eleuterio Rob MD LAB BLOOD ORDERABLES Final Re sult Performing Organization Address [facility] Co de Phone Number [facility] [address] [place] [address] * (ABNORMAL) Ferritin (11/14/2024 3:00 AM EST) Only the most recent of2 resultswithin the time period is included. Ferritin 1,543(H) 22 - 322 ng/mL [facility] 11/14/2024 3:00 AM EST 11/15/2024 3:02 PM EST Eleuterio Rob MD LAB BLOOD ORDERABLES Final Re sult Performing Organization Address [facility] de Phone Number [facility] [address] [place] [address] * (ABNORMAL) Creatinine, serum (11/14/2024 3:00 AM EST) Only the most recent of3 resultswithin the time period is included. Creatinine 6.45(H) 0.70 - 1.30 mg/dL [facility] 11/14/2024 3:00 AM EST 11/15/2024 3:02 PM EST Eleuterio Rob MD LAB BLOOD ORDERABLES Final Re sult Performing Organization Address [facility] de Phone Number [facility] [address] [place] [address] * (ABNORMAL) Bilirubin, total (11/14/2024 3:00 AM EST) Only the most recent of3 resultswithin the time period is included. Total Bilirubin 0.2(L) 0.3 - 1.2 mg/dL [facility] 11/14/2024 3:00 AM EST 11/15/2024 3:02 PM EST Eleuterio Rob MD LAB BLOOD ORDERABLES Final Re sult Performing Organization Address [facility] de Phone Number [facility] [address] [place] [address] * Electrolyte panel (11/14/2024 3:00 AM EST) Only the most recent of3 resultswithin the time period is included. Sodium 140 136 - 145 mEq/L [facility] Potassium 5.0 3.4 - 5.0 mEq/L [facility] Chloride 103 98 - 107 mEq/L [facility] Bicarbonate (CO2) 24 21 - 31 mEq/L [facility] Anion Gap 13 3 - 14 mEq/L [facility] 11/14/2024 3:00 AM EST 11/15/2024 3:02 PM EST Eleuterio Rob MD LAB BLOOD ORDERABLES Final Re sult Performing Organization Address [facility] de Phone Number [facility] [address] [place] [address] * Confirmation Test HCV (10/17/2024 3:00 AM EST) Hep C Ab Confirmation Not needed [facility] 10/17/2024 3:00 AM EST 10/18/2024 12:41 PM EST Eleuterio Rob MD LAB BLOOD ORDERABLES Final Re sult Performing Organization Address [facility] de Phone Number [facility] [address] [place] [address] * HEPATITIS C ABS W/REFLEX RNA DETECTR (10/17/2024 3:00 AM EST) Hep C Virus Ab Non-Reacti ve Non-Reacti ve [facility] 10/17/2024 3:00 AM EST 10/18/2024 1:16 PM EST Eleuterio Rob MD LAB [id number] SOLICITED RESULTS Final Result Performing Organization Address [facility] de Phone Number [facility] [address] [place] [address] * Aluminum level (10/17/2024 3:00 AM EST) Aluminum 4 1 - 20 ug/L [facility] 10/17/2024 3:00 AM EST 10/18/2024 12:56 PM EST Eleuterio Rob MD LAB BLOOD ORDERABLES Final Re sult Performing Organization Address [facility] de Phone Number [facility] [address] [place] [address] * Vitamin D 25 Hydroxy (10/17/2024 3:00 AM EST) Vitamin D, 25-Hydroxy 44 30 - 100 ng/mL [facility] Comment: Status ? Adult ?? Pediatric Deficient: ? <20 ? <15 Insufficient: ??20-29 ?? 15-19 Sufficient: ?30-100 ??20-100 10/17/2024 3:00 AM EST 10/18/2024 1:16 PM EST us Eleuterio Rob MD LAB BLOOD ORDERABLES Final Re sult Performing Organization Address [facility] de Phone Number [facility] [address] [place] [address] * Hepatitis B Surface Antibody (10/17/2024 3:00 AM EST) Only the most recent of2 resultswithin the time period is included. Hep B Surface Antibody 13 mIU/mL [facility] Comment: Interpretation: <10: No Immunity >=10: Probable Immunity 10/17/2024 3:00 AM EST 10/18/2024 1:16 PM EST Eleuterio Rob MD LAB BLOOD ORDERABLES Final Re sult Performing Organization Address [facility] de Phone Number [facility] [address] [place] [address] * Uric Acid (10/17/2024 3:00 AM EST) Uric Acid 4.5 4.4 - 7.6 mg/dL [facility] 10/17/2024 3:00 AM EST 10/18/2024 1:16 PM EST Eleuterio Rob MD LAB BLOOD ORDERABLES Final Re sult Performing Organization Address [facility] de Phone Number [facility] [address] [place] [address] * Hemoglobin A1c (10/17/2024 3:00 AM EST) Hemoglobin A1C 4.0 <5.7 % [facility] Comment: Methodology: Ion-exchange high-performance liquid chromatography (HPLC) HbA1c (NGSP %) ?Suggested Diagnosis >6.4% ? Diabetic 5.7-6.4% ?Pre-Diabetic <5.7% ? Non-Diabetic Diabetic Glucose Control Evaluation: Therapeutic action suggested at >8.0% ADA recommends a glycemic goal of <7.0% 10/17/2024 3:00 AM EST 10/18/2024 12:41 PM EST us Eleuterio Rob MD LAB BLOOD ORDERABLES Final Re sult [facility] [address] [place] [address] * (ABNORMAL) Lipid panel (10/17/2024 3:00 AM EST) Cholesterol 152 <200 mg/dL [facility] Comment: Optimal: ?<200 Borderline: ? 200-239 Higher Risk: ?>239 Triglycerides 85 <150 mg/dL [facility] Comment: Optimal: ?<150 Borderline High: ??150-199 High: ? 200-499 Very High: ?>499 HDL 43(A) >59 mg/dL [facility] Comment: Desirable: ?>59 Higher Risk: ?<40 LDL-Calc 92 <100 mg/dL [facility] Comment: Optimal: ?<100 Above Optimal: ?100-129 Borderline High: ??130-159 High: ? 160-189 Very High: ?>189 VLDL Cholesterol Paras 17 <30 mg/dL [facility] Comment: Optimal: ?<30 Borderline High: ??30-39 High: ? 40-99 Very High: ?>99 Chol/HDL Ratio 3.5(A) <3.3 [facility] Comment: Optimal: ?<3.3 Higher Risk: ?>6.2 10/17/2024 3:00 AM EST 10/18/2024 1:16 PM EST us Eleuterio Rob MD LAB BLOOD ORDERABLES Final Re aman [facility] [address] [place] [address] from Last 3 Months Insurance [facility] ([id number]) MYA PALACIOS [id number] [facility] ([id number]) MYA PALACIOS [id number] Care Teams Plug Overwrap Machine Tender Relationship Specialty Start Date End Date Adriane Higuera MD [address] [place] [address] PCP - General Family Medicine 07/17/24
--- OUTSIDE RECORDS SUMMARY | 2024-12-04 18:46 | XMS_ITS | Encounter Summary ---
Author Organization [employer] Address [address] [place] [address] Care Team Providers Care Multilith Operator Name Role Phone Adriane Higuera MD Primary Care Provider [phone] Encounter Details Date Type Department Care Team (Late st Contact Info) Description 09/24/2022 Orders Only [facility] [address] [place], [place] [id number] Salome Baker LPN Social History Tobacco Use Types Packs/Day Years Used Date Smoking Tobacco: Never Assessed Sex and Gender Information Value Date Recorded Sex Assigned at Male 08/09/2022 10:15 AM EDT Legal Sex Male 10:15 AM EDT Gender Identity Male 02/01/2023 3:20 PM EDT Sexual Orientation Don't know 08/09/2022 10 :15 AM EDT documented as of this encounter Plan of Treatment Not on file documented as of this encounter Visit Diagnoses Not on filedocumented in this encounter Care Teams Multilith Operator Relationship Specialty Start Date End Date Adriane Higuera MD [address] [place] [address] PCP - General Family Medicine 06/14/13 documented as of this encounter
--- OUTSIDE RECORDS SUMMARY | 2024-12-04 18:46 | XMS_ITS | Encounter Summary ---
Author Organization [employer] [facility] Address [address] [place] [address] Care Team Providers Care Sql Dba Name Role Phone Adriane Higuera MD Primary Care Provider [phone] Reason for Visit * Reason Comments Med Refill Encounter Details Date Type Department Care Team (Late st Contact Info) Description 01/27/2023 Refill [facility] [address], [place] [phone] Adriane Higuera MD [address] [place] [address] Nausea Social History Tobacco Use Types Packs/Day Years Used Date Smoking Tobacco: Never Passive Smoke Exposure: Never Smokeless Tobacco: Never Sex and Gender Information Value Date Recorded Sex Assigned at Male 08/09/2022 10:15 AM EDT Legal Sex Male 10:15 AM EDT Gender Identity Male 02/01/2023 3:20 PM EDT Sexual Orientation Don't know 08/09/2022 10 :15 AM EDT documented as of this encounter Plan of Treatment Not on file documented as of this encounter Visit Diagnoses Diagnosis Nausea Nausea alone documented in this encounter Care Teams Sql Dba Relationship Specialty Start Date End Date Adriane Higuera MD [address] [place], [place] [phone] PCP - General Family Medicine 06/14/13 documented as of this encounter
--- OUTSIDE RECORDS SUMMARY | 2024-12-04 18:46 | XMS_ITS | Encounter Summary ---
Author Organization [facility] Address [address] [place] [address] Care Team Providers Care Food Tray Assembler Name Role Phone Adriane Higuera MD Primary Care Provider [phone] Encounter Details Date Type Department Care Team (Late st Contact Info) Description 10/20/2022 Orders Only [facility] [address] [place], [place] [id number] Abbey Person LPN Social History Tobacco Use Types Packs/Day [...] on filedocumented in this encounter Care Teams Food Tray Assembler Relationship Specialty Start Date End Date Adriane Higuera MD [address] [place] [address] PCP - General Family Medicine 06/14/13 documented as of this encounter
--- NOTE | 2024-12-04 19:12 | P.HPHOSP_ITS ---
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 Patient states his symptoms started 5 days ago. He has been having epigastric pain which was initially intermittent but progressed to being constant. Also has been having multiple episodes of loose dark stools over the last 5 days. Also endorses couple episodes of nonbloody emesis. Unclear NSAID use. Patient is not a great historian. History obtained with the help of joy operator helper. Unclear last colonoscope. No fever, chills, chest pain, palpitations, shortness of breath, changes in urinary or bowel habits. In the emergency department, stool occult found to be positive and patient was initiated on IV Protonix. Review of Systems 2 Constitutional: Constitutional: Reports no additional constitutional complaints Cardiovascular: Cardiovascular: Reports no additional cardiovascular complaints Respiratory: Respiratory: Reports no additional respiratory complaints Gastrointestinal: Gastrointestinal: Reports abdominal pain and Reports melena Genitourinary: Genitourinary: Reports no additional male genitourinary complaints [facility] Medical History Anemia ESRD (end stage renal disease) CKD (chronic kidney disease) stage 5, GFR less than 15 ml/min MSSA bacteremia Dialysis patient COVID-19 vaccine administered Renal failure COPD (chronic obstructive pulmonary disease) Thyroid disease GERD (gastroesophageal reflux disease) Elevated cholesterol PVD (peripheral vascular disease) Prostate CA HTN (hypertension) Heart attack Surgical History Hx of cataract surgery Hx of cystoscopy History of incision and drainage H/O colonoscopy Hx of aortic valve replacement Hx of CABG Social History Household Members: None Household Members Other:: Lives with son.. 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) Alcohol intake: never Comment: Surgeon informed that all counts were correct Patient Tobacco Use Status: Never used Tobacco Advance Directives: Yes Advance Directives Information Provided: Yes Advance Directives on File: No Do you have a plan to hurt others: No Plan service: No Current occupational status: disabled Meds Allergies Allergy/AdvReac Type Severity Reaction Status Date / Time No Known Allergies Allergy Mild NONE Verified 12/04/24 14:39 Home Medications ?Medication ?Instructions ?Recorded ?Confirmed ?Last Taken ?Type allopurinol 100 mg tablet 100 mg PO DAILY 12/30/20 08/25/24 06/28/23 History aspirin 81 mg tablet,delayed 81 mg PO DAILY 12/30/20 08/25/24 06/28/23 History release atorvastatin 80 mg tablet 80 mg PO BEDTIME 12/30/20 08/25/24 06/28/23 History cholecalciferol (vitamin D3) 25 25 mcg PO DAILY 12/30/20 08/25/24 06/28/23 History mcg (1,000 unit) capsule (Vitamin D3) levothyroxine 50 mcg tablet 50 mcg PO DAILY@0600 12/30/20 08/25/24 06/28/23 History omeprazole 20 mg capsule,delayed 20 mg PO DAILY@0630 12/30/20 08/25/24 06/28/23 History release cyanocobalamin (vitamin B-12) 1,000 mcg PO DAILY 06/10/23 08/25/24 06/28/23 History 1,000 mcg tablet cyclosporine 0.05 % eye drops 1 drp ophthalmic (eye) BID 06/10/23 08/25/24 06/28/23 History (Restasis MultiDose) tramadol 50 mg tablet 50 mg PO BEDTIME PRN Severe Pain 07/03/24 08/25/24 Unknown History (Scale Score 7-10) Physical Exam 2 Vital Signs and Narrative: Vital Signs: Last Vital Signs Temp 98.6 F 12/04/24 18:16 Pulse 68 12/04/24 18:16 Resp 18 12/04/24 18:16 BP 163/68 H 12/04/24 18:16 Pulse Ox 96 12/04/24 18:16 O2 Del Method Room Air 12/04/24 18:16 BMI result Body Mass Index 22.3 Elderly male lying in bed in no distress Neck supple, no JVD Regular rate and rhythm, S1-S2 heard Regular breath sounds bilaterally, no wheezing or crackles appreciated Abdomen soft nontender, no guarding, no rigidity Patient is awake, alert and oriented x3 ; no focal motor deficit Psych: Normal mood No pedal edema Results Labs 12/04/24 14:31 12/04/24 14:31 Labs: Laboratory Results - last 24 hr 12/04/24 12/04/24 14:30 14:31 MCV 87.6 MCH 26.6 L MCHC 30.4 L RDW 18.2 H Plt Count 101 L D MPV Not Reportable Immature Gran % (Auto) 0.6 H Neut % (Auto) 58.0 Lymph % (Auto) 31.0 [place] % (Auto) 9.0 Eos % (Auto) 0.6 Baso % (Auto) 0.8 Lymph # (Auto) 2.0 [place] # (Auto) 0.6 Eos # (Auto) 0.0 Baso # (Auto) 0.1 Abs Immat Gran (auto) 0.04 H Absolute Neuts (auto) 3.7 Absolute Nucleated RBC 0.000 Nucleated RBC % (auto) 0.0 Anion Gap 18 Estim Creat Clear Calc 10.7 Estimated GFR 11 Random Glucose 91 Calcium 10.8 H Total Bilirubin 0.6 Direct Bilirubin 0.2 AST 43 H ALT 15 Alkaline Phosphatase 88 B-Natriuretic Peptide 285 H Total Protein 7.5 Albumin 3.5 Lipase 132 H Stool Occult Blood POSITIVE Influenza Type A (PCR) NEGATIVE Influenza Type B (PCR) NEGATIVE RSV RNA Qual (PCR) NEGATIVE SARS-CoV-2 RNA (RT-PCR) NEGATIVE Blood Type A Positive Antibody Screen NEGATIVE Imaging Radiologist's Impressions: Impressions Chest X-Ray 12/04/24 14:08 IMPRESSION: Pulmonary edema and left-sided Moderate volume pleural effusion. 7 cm thoracic aortic aneurysm and questionable status post stenting. Recommend CT angiography thoracic aorta. Electronically signed by: Kailash Mcclain MD 12/04/2024 02:59 PM EST RP Abdomen/Pelvis CT 12/04/24 15:01 IMPRESSION: 1. Colonic diverticulosis without evidence of diverticulitis. 2. Cholelithiasis. 3. 5.3 cm abdominal aortic aneurysm without significant change. 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 #. Acute GI bleed: Will admit patient with cardiac monitoring. Closely monitor H&H. Initiated IV Protonix. Consulted Gastroenterology, appreciate assistance #. ESRD: On hemodialysis M/ W/ F. consulted Nephrology #. Hypothyroidism: On Synthroid #. Gout: On allopurinol #. History of CVA: Hold aspirin in the setting of GI bleed. #. Abdominal aortic aneurysm: 5.3 cm. Conservative management Med rec pending DVT prophylaxis: SCDs Full code. Discussed with patient at bedside Admit as inpatient and will require two night minimum hospital stay for close monitoring of hemodynamics, management of acute GI bleed (as above), which is not possible in a lesser acute setting. Gastroenterology consult pending Quality Stroke Does the patient have a stroke diagnosis?: No VTE Prior VTE?: No VTE Risk Level:: Medical - moderate - high VTE Device Contraindication: N/A - Device Ordered VTE Drug Contraindication: Treatment Not Indicated
--- NOTE | 2024-12-04 20:11 | PHA.MEDREC ---
Addendum entered by Uli Rao [facility] 12/04/24 20:25: Med rec reviewed Original Note: Pharmacy Consult ? Medication Reconciliation Pharmacy has completed the medication reconciliation. 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 Spoke with patients son (Gian) over the phone who had a med list. Gian reports he does not use the eye drops every day (restasis last filled 06/2024) and has not used a nasal spray recently (new rx for ipratropium), leaving them off of med rec. Gian confirmed he is currently not taking anything for pain. He said the patient did not take any medications today.
--- NOTE | 2024-12-04 20:33 | PC.NURSE ---
this rn assumed care of pt, pt resting in stretcher, vss. no acute distress noted.
[2024-12-04 20:34] VITALS: BP 153/66; PULSE 64; RESP 18; TEMP 36.7; O2SAT 94
--- NOTE | 2024-12-04 21:40 | PC.NURSE ---
per MRI team, MRI will be completed in am.
[2024-12-05 00:11] VITALS: RESP 16
[2024-12-05 04:10] VITALS: BP 149/64; PULSE 67; RESP 16; TEMP 36.9; O2SAT 92
--- NOTE | 2024-12-05 04:17 | PC.NURSE ---
PT reports he does not urinate, on dialysis.
[2024-12-05 05:28] LABS: Hematocrit 29.4 % (42.0-52.0); Hemoglobin 8.9 g/dl (14.0-18.0); Mean Corpuscular HGB Conc 30.3 g/dl (31.0-36.0); Mean Corpuscular Hemoglobin 26.4 pg (27.0-33.0); Mean Corpuscular Volume 87.2 fL (80.0-98.0); Red Blood Count 3.37 X10*6/uL (4.60-5.80); Red Cell Distribution Width 18.3 % (11.0-16.0)
[2024-12-05 05:32] LABS: PLT ABN DIST 1; Platelet Count 96 X10*3/uL (160-400)
[2024-12-05 05:43] LABS: Anion Gap 16 (12-20); Blood Urea Nitrogen 44 mg/dL (9-16); Calcium 9.9 mg/dL (8.4-10.2); Carbon Dioxide 25 mmol/L (22-29); Chloride 106 mmol/L (96-108); Creatinine Clr Calc Pharmacy 9.7; Estimated Glomerular Filt Rate 10; Glucose Random 60 mg/dL (60-115); Potassium 4.6 mmol/L (3.3-5.1); Sodium 142 mmol/L (135-145)
[2024-12-05] MEDS: Pantoprazole Sodium 40 MG/10 ML VIAL IVPUSH ×2 (06:50→17:32)
[2024-12-05 08:00] VITALS: BP 130/51; PULSE 59; RESP 24; O2SAT 92
[2024-12-05] MEDS: 0.9 % Sodium Chloride Flush 3 ML SYRINGE IVFLUSH ×2 (08:21→17:32)
[2024-12-05 09:34] LABS: Appearance Urine Cloudy; Color Urine Yellow; Glucose Urine UA Negative (Negative); Leukocyte Esterase Urine Small (1+) (Negative); Nitrite Urine Negative (Negative); PH >= 9.0 (5.0-9.0); UMIC TRIGGER UACC YES; Urine Blood Negative (Negative); Urine Ketones Negative (Negative); Urine Protein 100 (2+) mg/dL (Neg-Trace)
[2024-12-05 09:37] LABS: Bacteria Urine 1+ (None Seen); Hyaline Casts Urine 0-2 /LPF (0-2); RBC Urine 0-2 /HPF (0-2); UACC Culture Trigger YES; WBC Urine 21-50 /HPF (0-5)
--- NOTE | 2024-12-05 10:07 | P.CNGI_ITS ---
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 Stools also noted to be loose, No fever, chills, chest pain, palpitations, shortness of breath, changes in urine. 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 Review of Systems 2 Review of Systems: Constitutional : No Weight loss, No Fever, No Chills ENT/Mouth : No sore throat, No Rhinorrhea Eyes: No Swelling, No Redness Cardiovascular : No Chest Pain, No SOB, No Edema Respiratory : No Cough, No Sputum, No Wheezing Gastrointestinal : see HPI Genitourinary : NO Dysuria, No Urinary Frequency, No Hematuria, No Urgency Musculoskeletal : + joint pain, No Myalgias, No Joint Swelling Skin : No Skin Lesions, No rash Neuro : No Weakness, No Numbness, No Dizziness, No Headache Psych : No Anxiety/Panic, No Depression Heme/Lymph: No Bruising, No Lymphadenopathy Endocrine : No Polyuria, No Polydipsia All other systems reviewed and are negative. [facility] Past Medical History Medical History Anemia ESRD (end stage renal disease) CKD (chronic kidney disease) stage 5, GFR less than 15 ml/min MSSA bacteremia Dialysis patient COVID-19 vaccine administered Renal failure COPD (chronic obstructive pulmonary disease) Thyroid disease GERD (gastroesophageal reflux disease) Elevated cholesterol PVD (peripheral vascular disease) Prostate CA HTN (hypertension) Heart attack Family History Pertinent family history: no fh of peptic ulcers Surgical History Surgical History Hx of cataract surgery Hx of cystoscopy History of incision and drainage H/O colonoscopy Hx of aortic valve replacement Hx of CABG Social History Social History Household Members: Family Household Members Other:: Lives with son.. 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 If so, by whom?: No Do you feel safe in your current relationship?: No Current Relationship Is there a partner from a previous relationship who is making you feel unsafe now?: No Are you made to feel afraid or neglected: No Spiritual Healthcare Practices: none Advance Directives: Yes Advance Directives Information Provided: Yes Advance Directives on File: No Advance Directives Date on File: 12/05/24 Do you have a plan to hurt others: No Plan Recently lost weight without trying: Unsure How much weight loss: Unsure Nutrition Risks: Poor intake 0-25% >4 days service: No Current occupational status: disabled Meds Allergies Allergy/AdvReac Type Severity Reaction Status Date / Time No Known Allergies Allergy Mild NONE Verified 12/04/24 14:39 Active Medications: Current Medications Acetaminophen (Acetaminophen 325 Mg Tablet) 650 mg PO Q6H PRN PRN Reason: Pain, Mild 1-3,fever,headache Calcium Carbonate (Calcium Carbonate 750 Mg Tab.Chew) 750 mg PO Q4H PRN PRN Reason: Heartburn Magnesium Hydroxide (Milk Of Magnesia 30 Ml Oral.Susp) 30 ml PO DAILY PRN PRN Reason: Constipation Melatonin (Melatonin 3 Mg Tablet) 6 mg PO BEDTIME PRN PRN Reason: Insomnia Ondansetron HCl (Ondansetron Hcl 4 Mg/2 Ml Vial) 4 mg IVPUSH Q8H PRN PRN Reason: Nausea and Vomiting Pantoprazole Sodium (Pantoprazole Sodium 40 Mg/10 Ml Vial) 40 mg IVPUSH BID@0630,1630 [facility] Last Admin: 12/05/24 06:50 Dose: 40 mg Sodium Chloride (0.9 % Sodium Chloride Flush 3 Ml Syringe) 3 ml IVFLUSH QSHIFT [facility] Last Admin: 12/05/24 08:21 Dose: 3 ml Home Medications ?Medication ?Instructions ?Recorded ?Confirmed ?Last Taken ?Type allopurinol 100 mg tablet 100 mg PO DAILY 12/30/20 12/04/24 06/28/23 History aspirin 81 mg tablet,delayed 81 mg PO DAILY 12/30/20 12/04/24 06/28/23 History release atorvastatin 80 mg tablet 80 mg PO BEDTIME 12/30/20 12/04/24 06/28/23 History cholecalciferol (vitamin D3) 25 25 mcg PO DAILY 12/30/20 12/04/24 06/28/23 History mcg (1,000 unit) capsule (Vitamin D3) levothyroxine 50 mcg tablet 50 mcg PO DAILY@0600 12/30/20 12/04/24 06/28/23 History cyanocobalamin (vitamin B-12) 1,000 mcg PO DAILY 06/10/23 12/04/24 06/28/23 History 1,000 mcg tablet guaifenesin 400 mg tablet (Chest 400 mg PO Q6H PRN cough 12/04/24 12/04/24 Unknown History Congestion Relief) Physical Exam 2 Vital Signs: Vital Signs: Last Vital Signs Temp 98.5 F 12/05/24 04:10 Pulse 59 12/05/24 08:00 Resp 24 H 12/05/24 08:00 BP 130/51 L 12/05/24 08:00 Pulse Ox 92 12/05/24 08:00 O2 Del Method Room Air 12/05/24 08:00 BMI result Body Mass Index 22.3 EXAM: GENERAL: The patient is frail VITAL SIGNS:see workflow HEENT: Nonicteric sclerae, PERRLA, EOMI. Oropharynx clear. Moist mucous membranes. Conjunctivae appear well perfused. No thyroid mass. CHEST: Chest wall is nontender. HEART: Regular rate and rhythm with ESM 3/6 LUNGS: Clear to auscultation bilaterally. ABDOMEN: Soft, positive bowel sounds, nontender, no organomegaly.no flank tenderness SKIN: No rash, no excessive bruising, petechiae, or purpura. NEUROLOGIC: Cranial nerves II-XII intact without motor/sensory deficit. Psych: normal affect Results Labs 12/05/24 04:59 12/05/24 04:59 Labs: Short CBC 12/04/24 12/05/24 Range/Units 14:31 04:59 WBC 6.4 5.0 (4.8-10.8) X10*3/uL Hgb 10.5 L D 8.9 L (14.0-18.0) g/dl Hct 34.5 L D 29.4 L (42.0-52.0) % Plt Count 101 L D 96 L (160-400) X10*3/uL BMP 12/04/24 12/05/24 14:31 04:59 Sodium 142 142 Potassium 4.9 4.6 Chloride 101 106 Carbon Dioxide 28 25 BUN 42 H 44 H Creatinine 5.04 H* 5.55 H* Calcium 10.8 H 9.9 D Liver Function 12/04/24 Range/Units 14:31 Total Bilirubin 0.6 (0.0-1.0) mg/dL Direct Bilirubin 0.2 (0.0-0.5) mg/dL AST 43 H (5-37) U/L ALT 15 (0-40) U/L Alkaline Phosphatase 88 (39-117) U/L Albumin 3.5 (3.5-5.0) g/dL Urine 12/05/24 Range/Units 09:25 Urine Color Yellow Urine Appearance Cloudy Urine pH >= 9.0 (5.0-9.0) Ur Specific [place] 1.010 (1.005-1.025) Urine Protein 100 (2+) H (Neg-Trace) mg/dL Urine Glucose (UA) Negative (Negative) mg/dL Imaging CT scan - abdomen: Attestation: I personally reviewed and interpreted this imaging study as follows: (diverticulosis, aneurysm, gallstones, thickened stomach ) Assessment and Plan (1) Melena: Status: Acute Plan 1/ Epigastric pain with questionable melena, hgb close to baseline historically. CT with gallstones, could be playing a role in hi pain, ddx; pUD rukhsana with aspirin use, AVM, GAVE, right side colon bleed PLAN; 1/ allow clears 2/ PPI bid 3/ EGD tomorrow with colo if egd negative, 4/ trend hgb and transfuse if HGB<8 g/dl--check iron tudies and b12,folate Procedures Date of Service Date of Service: 12/05/24
--- NOTE | 2024-12-05 11:58 | MHC.CM.PN ---
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 PCP confirmed: Adriane Higuera, HCP on file and confirmed: Gian, his son. For DME, he has a walker with a seat, w/c, and shower chair. For transport home at DC, his MECHANIC'S ASSISTANT or his son can bring him home. DCP: home with services. CM to follow for DC needs.
--- NOTE | 2024-12-05 13:06 | HO.WOUND ---
Wound Consult: Initial 84yr old male? admitted to [facility] on 12/04/24 19:11 - See progress notes and H&P for detailed history.? Wound consult placed for Left Metzger.? Chart review along with communication with direct care nurse and photo review. Left metzger is an injury noted from a fall at home. Left Metzger Etiology: ?Abrasion ?Present on Admission Wound Bed: linear - appears partial thickness tissue loss Drainage / Odor: none noted per discussion Edges: ? linear and well defined Pam wound: bruising noted? Goals of Treatment: Foam dressing to provide moist wound healing environment ? Recommendations: 1. Turn and Reposition every 2 hours and as needed for patient comfort.? Use pillows or wedges to support off loading positions. 2. Off Load all bony prominences with use of pillows and heel boots if needed.? Apply Preventative foams where needed. ? 3. Monitor for incontinence and moisture control, use barrier creams when needed for prevention and treatment. 4. Provide adequate and supplemental nutrition.? 5. Order low air loss mattress. 6. When applicable maintain blood glucose levels per Providers order. 7. Left Metzger - Cleanse with NS moist gauze, pat dry. Apply skin prep allow t dry. Cover with foam dressing change every 3 days and PRN. Re-consult wound care Nurse for wound deterioration or wound changes.
--- NOTE | 2024-12-05 13:57 | P.PNIM_ITS ---
Subjective Subjective Date of Service: 12/05/24 Review of Systems Follow up GI bleed no pain or discomfort Physical Exam 2 Vital Signs: Vital Signs: Last Vital Signs Temp 98.5 F 12/05/24 04:10 Pulse 59 12/05/24 08:00 Resp 24 H 12/05/24 08:00 BP 130/51 L 12/05/24 08:00 Pulse Ox 92 12/05/24 08:00 O2 Del Method Room Air 12/05/24 08:00 BMI result Body Mass Index 22.3 Objective Data Active Medications Acetaminophen (Acetaminophen 325 Mg Tablet) 650 mg PO Q6H PRN PRN Reason: Pain, Mild 1-3,fever,headache Calcium Carbonate (Calcium Carbonate 750 Mg Tab.Chew) 750 mg PO Q4H PRN PRN Reason: Heartburn Magnesium Hydroxide (Milk Of Magnesia 30 Ml Oral.Susp) 30 ml PO DAILY PRN PRN Reason: Constipation Melatonin (Melatonin 3 Mg Tablet) 6 mg PO BEDTIME PRN PRN Reason: Insomnia Ondansetron HCl (Ondansetron Hcl 4 Mg/2 Ml Vial) 4 mg IVPUSH Q8H PRN PRN Reason: Nausea and Vomiting Pantoprazole Sodium (Pantoprazole Sodium 40 Mg/10 Ml Vial) 40 mg IVPUSH BID@0630,1630 [facility] Last Admin: 12/05/24 06:50 Dose: 40 mg Documented By: ANN Sodium Chloride (0.9 % Sodium Chloride Flush 3 Ml Syringe) 3 ml IVFLUSH QSHIFT [facility] Last Admin: 12/05/24 08:21 Dose: 3 ml Documented By: CITLALY Labs 12/05/24 04:59 12/05/24 04:59 Labs: Laboratory Results - last 24 hr 12/04/24 12/04/24 12/05/24 14:30 14:31 04:59 MCV 87.6 87.2 MCH 26.6 L 26.4 L MCHC 30.4 L 30.3 L RDW 18.2 H 18.3 H Plt Count 101 L D 96 L MPV Not Reportable Not Reportable Immature Gran % (Auto) 0.6 H Neut % (Auto) 58.0 Lymph % (Auto) 31.0 [place] % (Auto) 9.0 Eos % (Auto) 0.6 Baso % (Auto) 0.8 Lymph # (Auto) 2.0 [place] # (Auto) 0.6 Eos # (Auto) 0.0 Baso # (Auto) 0.1 Abs Immat Gran (auto) 0.04 H Absolute Neuts (auto) 3.7 Absolute Nucleated RBC 0.000 0.000 Nucleated RBC % (auto) 0.0 0.0 Anion Gap 18 16 Estim Creat Clear Calc 10.7 9.7 Estimated GFR 11 10 Random Glucose 91 60 Calcium 10.8 H 9.9 D Total Bilirubin 0.6 Direct Bilirubin 0.2 AST 43 H ALT 15 Alkaline Phosphatase 88 B-Natriuretic Peptide 285 H Total Protein 7.5 Albumin 3.5 Lipase 132 H Urine Color Urine Appearance Urine pH Ur Specific [place] Urine Protein Urine Glucose (UA) Urine Ketones Urine Blood Urine Nitrite Ur Leukocyte Esterase Urine RBC Urine WBC Ur Squamous Epith Cells Urine Bacteria Hyaline Casts Stool Occult Blood POSITIVE Influenza Type A (PCR) NEGATIVE Influenza Type B (PCR) NEGATIVE RSV RNA Qual (PCR) NEGATIVE SARS-CoV-2 RNA (RT-PCR) NEGATIVE Blood Type A Positive Antibody Screen NEGATIVE 12/05/24 09:25 MCV MCH MCHC RDW Plt Count MPV Immature Gran % (Auto) Neut % (Auto) Lymph % (Auto) [place] % (Auto) Eos % (Auto) Baso % (Auto) Lymph # (Auto) [place] # (Auto) Eos # (Auto) Baso # (Auto) Abs Immat Gran (auto) Absolute Neuts (auto) Absolute Nucleated RBC Nucleated RBC % (auto) Anion Gap Estim Creat Clear Calc Estimated GFR Random Glucose Calcium Total Bilirubin Direct Bilirubin AST ALT Alkaline Phosphatase B-Natriuretic Peptide Total Protein Albumin Lipase Urine Color Yellow Urine Appearance Cloudy Urine pH >= 9.0 Ur Specific [place] 1.010 Urine Protein 100 (2+) H Urine Glucose (UA) Negative Urine Ketones Negative Urine Blood Negative Urine Nitrite Negative Ur Leukocyte Esterase Small (1+) H Urine RBC 0-2 Urine WBC 21-50 H Ur Squamous Epith Cells 11-20 Urine Bacteria 1+ Hyaline Casts 0-2 Stool Occult Blood Influenza Type A (PCR) Influenza Type B (PCR) RSV RNA Qual (PCR) SARS-CoV-2 RNA (RT-PCR) Blood Type Antibody Screen Assessment and Plan (1) Rectal bleed: Status: Acute Plan This is a 84-year-old male with pertinent history of 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 Acute GI bleed Stable HH occult positive Initiated IV Protonix. Gastroenterology consultation ESRD On hemodialysis M/ W/ . consulted Nephrology Hypothyroidism On Synthroid Gout On allopurinol History of CVA Hold aspirin in the setting of GI bleed. Abdominal aortic aneurysm 5.3 cm. Conservative management DVT prophylaxis: SCDs Full code. Discussed with patient at bedside Quality Stroke Does the patient have a stroke diagnosis?: No VTE Prior VTE?: No VTE Risk Level:: Medical - moderate - high VTE Device Contraindication: N/A - Device Ordered VTE Drug Contraindication: Treatment Not Indicated
[2024-12-05 15:58] VITALS: BP 158/70; PULSE 64; RESP 22; TEMP 36.5; O2SAT 92
[2024-12-05] MEDS: PEG 3350/Na Sulf,Bicarb,Cl/KCL 4,000 ML SOLN.RECON 4000 ML PO (17:32)
[2024-12-05 20:07] VITALS: BP 148/70; PULSE 68; RESP 14; TEMP 36.8; O2SAT 92
--- NOTE | 2024-12-05 20:56 | PC.NURSE ---
Assumed care of this patient at 1900, patient transferred onto hospital bed for comfort, denies pain, VSS, golytely education reinforced w/ help of physician non invasive cardiologist Shant.
[2024-12-05] MEDS: Atorvastatin Calcium 80 MG TABLET PO (21:05)
--- NOTE | 2024-12-05 23:30 | PC.NURSE ---
assumed care of pt at this time, gavilyte bottle found to be approx 2/3 full at bedside, pt refused to drink more. MD aware, no further instructions at this time.
[2024-12-06] VITALS (12 sets, daily range): BP systolic 104–214; BP diastolic 40–88; PULSE 56–73; RESP 17–20; TEMP 36.1–37.1; O2SAT 93–100
[2024-12-06 04:59] LABS: Hematocrit 32.5 % (42.0-52.0); Mean Corpuscular HGB Conc 30.8 g/dl (31.0-36.0); Mean Corpuscular Hemoglobin 26.3 pg (27.0-33.0); Mean Corpuscular Volume 85.5 fL (80.0-98.0); Platelet Count 111 X10*3/uL (160-400); Red Cell Distribution Width 18.4 % (11.0-16.0); White Blood Count 7.2 X10*3/uL (4.8-10.8)
--- NOTE | 2024-12-06 08:40 | PC.NURSE ---
Report taken from previous rn, pt is awake and alert. pt was assisted to commode with 1 person assist, no skin breakdown was noted over posterior surfaces. a clear liquid tray was brought to pt but pac ikm intervened before pt consumed any. per pac small amount of po fluids can be given with levothyroxine, hold all other po meds pt has wpd skin, with a strong and regular radial pulse, he had 1 episode of black diarrhea per pct.
[2024-12-06] MEDS: Levothyroxine Sodium 50 MCG TABLET PO (08:49)
[2024-12-06] MEDS: Pantoprazole Sodium 40 MG/10 ML VIAL IVPUSH ×2 (08:49→17:17)
--- NOTE | 2024-12-06 12:44 | HO.ANESPROP2 ---
HPI - Anesthesia Eval Consult details Narrative: for EGD - GI bleed. PMFSH Active Problems Active Problems: All Active Problems Melena (Acute) Rectal bleed (Acute) MSSA bacteremia (Acute) Gram-positive bacteremia (Acute) Macrocytic anemia (Acute) Encephalopathy (Acute) Uremia (Acute) Acute on chronic kidney failure (Acute) Acute hyperkalemia (Acute) Dysphagia (Acute) Past Medical History Medical History Anemia ESRD (end stage renal disease) CKD (chronic kidney disease) stage 5, GFR less than 15 ml/min MSSA bacteremia Dialysis patient COVID-19 vaccine administered Renal failure COPD (chronic obstructive pulmonary disease) Thyroid disease GERD (gastroesophageal reflux disease) Elevated cholesterol PVD (peripheral vascular disease) Prostate CA HTN (hypertension) Heart attack Family History Family history of problems with anesthesia: No Surgical History Surgical History Hx of cataract surgery Hx of cystoscopy History of incision and drainage H/O colonoscopy Hx of aortic valve replacement Hx of CABG History of Problems with Anesthesia: No Social History Social History Household Members: Family Household Members Other:: son Housing: Apartment Are you a primary rn transitional care to a significant other at home: No Do you presently have visiting nurse or other home services: No Alcohol intake: never Comment: Surgeon informed that all counts were correct Patient Tobacco Use Status: Never used Tobacco e-Cigarette/Vaping Use: Never Used Second Hand Smoke Exposure: No Advance Directives Date on File: 12/05/24 service: No Current occupational status: disabled Meds Allergies Allergy/AdvReac Type Severity Reaction Status Date / Time No Known Allergies Allergy Mild NONE Verified 12/06/24 12:35 Active Medications: Current Medications Acetaminophen (Acetaminophen 325 Mg Tablet) 650 mg PO Q6H PRN PRN Reason: Pain, Mild 1-3,fever,headache Allopurinol (Allopurinol 100 Mg Tablet) 100 mg PO DAILY [facility] Last Admin: 12/06/24 09:03 Dose: Not Given Atorvastatin Calcium (Atorvastatin Calcium 80 Mg Tablet) 80 mg PO BEDTIME [facility] Last Admin: 12/05/24 21:05 Dose: 80 mg Calcium Carbonate (Calcium Carbonate 750 Mg Tab.Chew) 750 mg PO Q4H PRN PRN Reason: Heartburn Cyanocobalamin (Cyanocobalamin (Vitamin B-12) 1,000 Mcg Tablet) 1,000 mcg PO DAILY [facility] Last Admin: 12/06/24 09:03 Dose: Not Given Folic Acid (Folic Acid 1 Mg Tablet) 1 mg PO DAILY [facility] Last Admin: 12/06/24 09:03 Dose: Not Given Levothyroxine Sodium (Levothyroxine Sodium 50 Mcg Tablet) 50 mcg PO DAILY@0600 [facility] Last Admin: 12/06/24 08:49 Dose: 50 mcg Magnesium Hydroxide (Milk Of Magnesia 30 Ml Oral.Susp) 30 ml PO DAILY PRN PRN Reason: Constipation Melatonin (Melatonin 3 Mg Tablet) 6 mg PO BEDTIME PRN PRN Reason: Insomnia Ondansetron HCl (Ondansetron Hcl 4 Mg/2 Ml Vial) 4 mg IVPUSH Q8H PRN PRN Reason: Nausea and Vomiting Pantoprazole Sodium (Pantoprazole Sodium 40 Mg/10 Ml Vial) 40 mg IVPUSH BID@0630,1630 [facility] Last Admin: 12/06/24 08:49 Dose: 40 mg Sodium Chloride (0.9 % Sodium Chloride Flush 3 Ml Syringe) 3 ml IVFLUSH QSHIFT [facility] Last Admin: 12/06/24 09:03 Dose: Not Given Vitamin D (Cholecalciferol (Vitamin D3) 25 Mcg Tablet) 25 mcg PO DAILY [facility] Last Admin: 12/06/24 09:03 Dose: Not Given Home Medications ?Medication ?Instructions ?Recorded ?Confirmed ?Last Taken ?Type allopurinol 100 mg tablet 100 mg PO DAILY 12/30/20 12/04/24 06/28/23 History aspirin 81 mg tablet,delayed 81 mg PO DAILY 12/30/20 12/04/24 06/28/23 History release atorvastatin 80 mg tablet 80 mg PO BEDTIME 12/30/20 12/04/24 06/28/23 History cholecalciferol (vitamin D3) 25 25 mcg PO DAILY 12/30/20 12/04/24 06/28/23 History mcg (1,000 unit) capsule (Vitamin D3) levothyroxine 50 mcg tablet 50 mcg PO DAILY@0600 12/30/20 12/04/24 06/28/23 History cyanocobalamin (vitamin B-12) 1,000 mcg PO DAILY 06/10/23 12/04/24 06/28/23 History 1,000 mcg tablet guaifenesin 400 mg tablet (Chest 400 mg PO Q6H PRN cough 12/04/24 12/04/24 Unknown History Congestion Relief) Exam Height,Weight and Vital Signs: Height 5 ft 10 in Weight 70.6 kg Last Vital Signs Temp 98.0 F 12/06/24 12:32 Pulse 67 12/06/24 12:32 Resp 18 12/06/24 12:32 BP 186/82 H 12/06/24 12:32 Pulse Ox 96 12/06/24 12:32 O2 Del Method Room Air 12/06/24 12:32 Pertinent Lab Results Pertinent Lab Results: Laboratory Tests 12/04/24 12/04/24 12/05/24 14:30 14:31 04:59 WBC 6.4 5.0 RBC 3.94 L D 3.37 L Hgb 10.5 L D 8.9 L Hct 34.5 L D 29.4 L MCV 87.6 87.2 MCH 26.6 L 26.4 L MCHC 30.4 L 30.3 L RDW 18.2 H 18.3 H Plt Count 101 L D 96 L MPV Not Reportable Not Reportable Immature Gran % (Auto) 0.6 H Neut % (Auto) 58.0 Lymph % (Auto) 31.0 [place] % (Auto) 9.0 Eos % (Auto) 0.6 Baso % (Auto) 0.8 Lymph # (Auto) 2.0 [place] # (Auto) 0.6 Eos # (Auto) 0.0 Baso # (Auto) 0.1 Abs Immat Gran (auto) 0.04 H Absolute Neuts (auto) 3.7 Absolute Nucleated RBC 0.000 0.000 Nucleated RBC % (auto) 0.0 0.0 Sodium 142 142 Potassium 4.9 4.6 Chloride 101 106 Carbon Dioxide 28 25 Anion Gap 18 16 BUN 42 H 44 H Creatinine 5.04 H* 5.55 H* Estim Creat Clear Calc 10.7 9.7 Estimated GFR 11 10 Random Glucose 91 60 Calcium 10.8 H 9.9 D Total Bilirubin 0.6 Direct Bilirubin 0.2 AST 43 H ALT 15 Alkaline Phosphatase 88 Troponin I High Sens 33.8 B-Natriuretic Peptide 285 H Total Protein 7.5 Albumin 3.5 Lipase 132 H Urine Color Urine Appearance Urine pH Ur Specific [place] Urine Protein Urine Glucose (UA) Urine Ketones Urine Blood Urine Nitrite Ur Leukocyte Esterase Urine RBC Urine WBC Ur Squamous Epith Cells Urine Bacteria Hyaline Casts Stool Occult Blood POSITIVE Influenza Type A (PCR) NEGATIVE Influenza Type B (PCR) NEGATIVE RSV RNA Qual (PCR) NEGATIVE SARS-CoV-2 RNA (RT-PCR) NEGATIVE Blood Type A Positive Antibody Screen NEGATIVE 12/05/24 12/06/24 09:25 04:33 WBC 7.2 RBC 3.80 L Hgb 10.0 L Hct 32.5 L MCV 85.5 MCH 26.3 L MCHC 30.8 L RDW 18.4 H Plt Count 111 L MPV Not Reportable Immature Gran % (Auto) Neut % (Auto) Lymph % (Auto) [place] % (Auto) Eos % (Auto) Baso % (Auto) Lymph # (Auto) [place] # (Auto) Eos # (Auto) Baso # (Auto) Abs Immat Gran (auto) Absolute Neuts (auto) Absolute Nucleated RBC 0.000 Nucleated RBC % (auto) 0.0 Sodium Potassium Chloride Carbon Dioxide Anion Gap BUN Creatinine Estim Creat Clear Calc Estimated GFR Random Glucose Calcium Total Bilirubin Direct Bilirubin AST ALT Alkaline Phosphatase Troponin I High Sens B-Natriuretic Peptide Total Protein Albumin Lipase Urine Color Yellow Urine Appearance Cloudy Urine pH >= 9.0 Ur Specific [place] 1.010 Urine Protein 100 (2+) H Urine Glucose (UA) Negative Urine Ketones Negative Urine Blood Negative Urine Nitrite Negative Ur Leukocyte Esterase Small (1+) H Urine RBC 0-2 Urine WBC 21-50 H Ur Squamous Epith Cells 11-20 Urine Bacteria 1+ Hyaline Casts 0-2 Stool Occult Blood Influenza Type A (PCR) Influenza Type B (PCR) RSV RNA Qual (PCR) SARS-CoV-2 RNA (RT-PCR) Blood Type Antibody Screen Airway Mallampati Class: II TM Dist: >3cm Neck ROM: Full Denture: Upper and Lower Heart: ok Lungs: ok Assessment and Plan Assessment Anesthesia Assessment: Anesthesia Plan Discussed and Chart Reviewed Final Anesthetic Review Family History of Problems with Anesthesia: No History of Problems with Anesthesia: No NPO: Yes ASA Class: IV Final Preanesthetic Review: No Changes in Pt Med Stat, Meds/Allgs Chart Reviewed, Consent Obtained/Reviewed and Anes Risks/Benef Reviewed Patient Risk: High Procedure Risk: Intermediate Anesthetic Plan Anesthetic Plan: Agree w/ Assess. and Plan and TIVA Disposition: Standard PACU
--- NOTE | 2024-12-06 12:46 | PC.NURSE ---
dr. cowart aware of chemistry lab results from yesterday and no chemistry drawn today. okay to proceed.
--- NOTE | 2024-12-06 13:04 | P.PNGI_ITS ---
Subjective Subjective Date of Service: 12/06/24 Interval History: feeling and looking much better today pain is minimal no more nausea or vomiting he had bowel prep but unsure of color, HGB actually better today without PRBC Critical Care Time (minutes): 0 Physical Exam 2 Vital Signs: Vital Signs: Last Vital Signs Temp 98.0 F 12/06/24 12:32 Pulse 67 12/06/24 12:32 Resp 18 12/06/24 12:32 BP 186/82 H 12/06/24 12:32 Pulse Ox 96 12/06/24 12:32 O2 Del Method Room Air 12/06/24 12:32 BMI result Body Mass Index 22.3 EXAM: GENERAL: The patient is well developed and nontoxic. VITAL SIGNS:see workflow HEENT: Nonicteric sclerae, PERRLA, EOMI. Oropharynx clear. Moist mucous membranes. Conjunctivae appear well perfused. No thyroid mass. CHEST: Chest wall is nontender. HEART: Regular rate and rhythm with ESM at aortic area LUNGS: Clear to auscultation bilaterally. ABDOMEN: Soft, positive bowel sounds, nontender, no organomegaly.no flank tenderness SKIN: No rash, no excessive bruising, petechiae, or purpura. NEUROLOGIC: Cranial nerves II-XII intact without motor/sensory deficit. Psych: normal affect Objective Data Labs 12/06/24 04:33 12/05/24 04:59 Labs: Laboratory Results - last 24 hr 12/06/24 04:33 WBC 7.2 RBC 3.80 L Hgb 10.0 L Hct 32.5 L MCV 85.5 MCH 26.3 L MCHC 30.8 L RDW 18.4 H Plt Count 111 L MPV Not Reportable Absolute Nucleated RBC 0.000 Nucleated RBC % (auto) 0.0 Microbiology Microbiology Results: Microbiology 12/05/24 Unknown Urine clean catch - Clean Catch Midstream Urine Culture - Final Procedures Date of Service Date of Service: 12/06/24 Progress Note: A&P Assessment and plan (1) Melena: Status: Acute Plan 1/ Melena, questionable, but given sx need to r/o peptic ulcer disease or other pathology PLAN: 1/ cont with PPI 2/ EGD today wt possible colonoscopy/sigmodioscopy as well if EGD negative Time Spent With Patient Time: Total time managing care of this patient today ____ minutes. Quality Stroke Does the patient have a stroke diagnosis?: No VTE Prior VTE?: No VTE Risk Level:: Medical - moderate - high VTE Device Contraindication: N/A - Device Ordered VTE Drug Contraindication: Treatment Not Indicated
--- NOTE | 2024-12-06 13:07 | MHC.SHP ---
Pre-Procedural Eval Section A - 24 Hr Update-Section A only Date of Service: 12/06/24 The patient is an INPATIENT: Yes The patient has been examined within 24 hours of the surgical procedure. The History & Physical has been completed within 30 days and I have reviewed it.: Yes Section B - Complete if H&P > 30 days Chief Complaint: black stool Allergies: Allergies Allergy/AdvReac Type Severity Reaction Status Date / Time No Known Allergies Allergy Mild NONE Verified 12/06/24 12:35 Plan I have reviewed the history and physical and performed a pertinent physical examination on my patient. No changes have occurred unless specified. Time Spent With Patient Time: Total time managing care of this patient today ____ minutes.
--- NOTE | 2024-12-06 13:37 | W.PM.OPN ---
Operative Note Operative Note Date of Service: 12/06/24 Narrative: Procedure Description: EGD Indication: possible melena Anesthesia: MAC FLEXIBLE TRANSORAL UPPER GASTROINTESTINAL ENDOSCOPY UPPER ENDOSCOPY Consent: Indications for the procedure and potential complications of bleeding, perforation, reaction to medications and missed diagnosis were discussed with the patient and informed consent was obtained. Instrument: Olympus GIF H 190 J mid size upper endoscope Monitoring: Vital signs and clinical assessment, continuous EKG monitoring, Pulse oximetry, Carbon Dioxide monitoring and blood pressure monitoring were done throughout the procedure. Procedure: The patient was placed in the left lateral decubitis position and pre-procedure medications were administered and a bite block was placed. The endoscope was inserted into the mouth and advanced under direct vision to the third part of duodenum. A careful inspection was made as the upper endoscope was withdrawn including a retroflexed examination of the proximal stomach; Findings and interventions are described below. Findings: Larynx:normal Esophagus: GE junction at 40 cm, diaphragm hiatus at 44 cm, consistent with 4 cm sliding hiatal hernia. there was erosive esophagitis with boggy mucosa and healing ulcers noted. LEs was patulous Stomach: atrophic gastritis . Biopsies were obtained. Grade 2 flap valve on retroflexed examination of the cardia. Duodenum: moderate severe erosive duodenitis, no bleeding noted Intervention: Biopsies as noted above, Impression/Findings: gastritis erosive duodenitis erosive esophagitis patulous GEJ PLAN: high dose PPI for 1 month then cut to once daily, can add carafate for 2 weeks as well GERD precautions if H pylori pos then treat
--- NOTE | 2024-12-06 14:09 | P.DS_ITS ---
DS: Providers Provider Date of Service: 12/07/24 Date of admission: 12/04/24 19:11 Date of discharge: 12/07/24 Primary care physician: Adriane Higuera MD Consults: 12/04/24 19:11 Consult to Gastroenterology Routine Consulting Provider: Manuel Tafoya Reason for consultation: black stools 12/04/24 19:12 Consult to Nephrology Routine Consulting Provider: [facility] Reason for consultation: ESRD on HD 12/05/24 10:16 Consult to Wound Care Routine Reason for consultation: Abrasion to left metzger Attending physician on discharge: Erik Aldana Discharging clinician: Michelle Rg DS: Diagnosis Discharge Diagnosis (1) Melena: Status: Acute DS: Summary Hospital Course Hospital Course: From H&P on the day of admission This is a 84-year-old male with pertinent history of 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 Patient states his symptoms started 5 days ago. He has been having epigastric pain which was initially intermittent but progressed to being constant. Also has been having multiple episodes of loose dark stools over the last 5 days. Also endorses couple episodes of nonbloody emesis. Unclear NSAID use. Patient is not a great historian. History obtained with the help of conference interpreter. Unclear last colonoscope. No fever, chills, chest pain, palpitations, shortness of breath, changes in urinary or bowel habits. In the emergency department, stool occult found to be positive and patient was initiated on IV Protonix Acute GI bleed stool was heme occult positive although H/H remained at baseline. he was started on IV ppi, he was seen in consultation by Gastroenterology who recommended EGD. he underwent EGD on 12/06 which showed evidence of erosive esophagitis, atrophic gastritis, erosive duodenitis. GI recommended increasing PPI to 40 mg twice daily for 1 month and then 40 mg once daily after that. Also recommended Carafate for 2 weeks. Did not require blood transfusion. No further bleeding overnight. After procedure he did have episode of hypoglycemia, likely due to being NPO all day, improved with glucose gel. Hba1c is low. patient was asymptomatic, follow up POC overnight was stable and with am labs glucose was within normal range. ESRD on HD Missed HD on tuesday. Had HD on the day of discharge, his regularly scheduled dialysis day. plan to continue HD on regularly scheduled dialysis schedule. Time Attestation Discharge Coordination Time (in mins): 36 Quality: Safe Use of Opioids Does Pt have an Active Cancer Diagnosis on the Problem List?: No Quality: Stroke Does the patient have a stroke diagnosis?: No Physical Exam Vital Signs: Vital Signs: Last Vital Signs Temp 97 F 12/06/24 13:48 Pulse 59 12/06/24 13:48 Resp 20 12/06/24 13:48 BP 104/40 L 12/06/24 13:48 Pulse Ox 93 12/06/24 13:48 O2 Del Method Room Air 12/06/24 13:48 BMI result Body Mass Index 22.3 Const: General: cooperative, comfortable, no acute distress, alert and awake Nutritional Appearance: average body habitus GI: Inspection: No distended Palpation (GI): Soft to palpation Extrem: General: Yes no pedal edema DS: Data Data Completed and Pending Completed studies during hospitalization [Text1]: Procedures Excision of Left Lower Arm Skin, External Approach (05/30/24) Insertion of Infusion Device into Superior Vena Cava, Percutaneous Approach (01/12/21) Insertion of Tunneled Vascular Access Device into Chest Subcutaneous Tissue and Fascia, Percutaneous Approach (01/12/21) Introduction of Anesthetic Agent into Peripheral Nerves and Plexi, Percutaneous Approach (05/30/24) Introduction of Vasopressor into Peripheral Vein, Percutaneous Approach (05/30/24) Performance of Urinary Filtration, Intermittent, Less than 6 Hours Per Day (08/25/24) Restriction of Left Cephalic Vein, Open Approach (05/30/24) Transfusion of Nonautologous Red Blood Cells into Peripheral Vein, Percutaneous Approach (05/30/24) Ultrasonography of Superior Vena Cava, Guidance (01/12/21) Pending studies at discharge: Pending at discharge 12/06/24 13:37 Surgical [PTH] Routine Labs on day of discharge: Laboratory Results - last 24 hr 12/06/24 04:33 WBC 7.2 RBC 3.80 L Hgb 10.0 L Hct 32.5 L MCV 85.5 MCH 26.3 L MCHC 30.8 L RDW 18.4 H Plt Count 111 L MPV Not Reportable Absolute Nucleated RBC 0.000 Nucleated RBC % (auto) 0.0 Discharge Plan Discharge Anticipated Discharge Date/Time: 12/07/24 10:41 Patient Disposition: Home, Self-Care Discharge Diagnosis: anemia due to erosive esophagitis, gastritis, duodenitis Referrals: Adriane Higuera MD [Primary Care Provider] - 1 Week Discharge Medications: New sucralfate [Carafate] 1 gram tablet 1 g PO QIDACHS 14 Days Qty: 56 0RF Continued atorvastatin 80 mg tablet 80 mg PO BEDTIME allopurinol 100 mg tablet 100 mg PO DAILY aspirin 81 mg tablet,delayed release (DR/EC) 81 mg PO DAILY levothyroxine 50 mcg tablet 50 mcg PO DAILY@0600 cholecalciferol (vitamin D3) [Vitamin D3] 25 mcg (1,000 unit) Capsule 25 mcg PO DAILY folic acid 1 mg tablet 1 mg PO DAILY Qty: 30 0RF guaifenesin [Chest Congestion Relief] 400 mg tablet 400 mg PO Q6H PRN (Reason: cough) cyanocobalamin (vitamin B-12) 1,000 mcg tablet 1,000 mcg PO DAILY Changed pantoprazole 40 mg tablet,delayed release (DR/EC) 40 mg PO BID 30 Days Qty: 60 0RF Discharge Orders: Discharge Order (Routine); Ordered 12/07/24 Ordered By: Michelle Rg Activity on Discharge: As tolerated Stand Alone Forms: Patient Portal Discharge page Print Language: Turkmen Care Plan Goals: see below Health Concerns: melena Plan of Treatment: EGD with erosive esophagitis, gastritis, duodenitis- recommend increase omeprazole to twice daily for the next 4 weeks and then back down to once daily. Carafate with meals for the next 2 weeks avoid NSAIDs (ibuprofen, motrin etc) continue dialysis at normal outpatient schedule, last dialysis was on the day of discharge Assessment: see discharge summary
--- NOTE | 2024-12-06 16:06 | P.PNIM_ITS ---
Subjective Subjective Date of Service: 12/06/24 Interval History: seen and examined this morning follow up for melena plan for EGD and possible coloncoscopy today Review of Systems Review of Systems: Yes all other systems are reviewed and are negative Constitutional Constitutional: Denies chills and Denies fever(s) Physical Exam 2 Vital Signs: Vital Signs: Last Vital Signs Temp 97.3 F 12/06/24 15:12 Pulse 58 12/06/24 15:12 Resp 18 12/06/24 15:12 BP 171/79 H 12/06/24 15:12 Pulse Ox 98 12/06/24 15:12 O2 Del Method Nasal Cannula 12/06/24 15:12 O2 Flow Rate 1 12/06/24 15:12 BMI result Body Mass Index 22.3 Const: General: cooperative, comfortable, alert and awake Nutritional Appearance: average body habitus Resp: Effort & Inspection: normal respiratory effort, able to speak in complete sentences, no respiratory distress and no use of accessory muscles Cardio: Rate: regular rate GI: Inspection: No distended Palpation (GI): Soft to palpation and nontender Neuro: General: moves all extremities Objective Data Active Medications Acetaminophen (Acetaminophen 325 Mg Tablet) 650 mg PO Q6H PRN PRN Reason: Pain, Mild 1-3,fever,headache Allopurinol (Allopurinol 100 Mg Tablet) 100 mg PO DAILY [facility] Last Admin: 12/06/24 09:03 Dose: Not Given Documented By: CHARMAINE Non-Admin Reason: Physician Held Med Atorvastatin Calcium (Atorvastatin Calcium 80 Mg Tablet) 80 mg PO BEDTIME [facility] Last Admin: 12/05/24 21:05 Dose: 80 mg Documented By: EILEENTOWILY Calcium Carbonate (Calcium Carbonate 750 Mg Tab.Chew) 750 mg PO Q4H PRN PRN Reason: Heartburn Cyanocobalamin (Cyanocobalamin (Vitamin B-12) 1,000 Mcg Tablet) 1,000 mcg PO DAILY [facility] Last Admin: 12/06/24 09:03 Dose: Not Given Documented By: CHARMAINE Non-Admin Reason: Physician Held Med Folic Acid (Folic Acid 1 Mg Tablet) 1 mg PO DAILY [facility] Last Admin: 12/06/24 09:03 Dose: Not Given Documented By: CHARMAINE Non-Admin Reason: Physician Held Med Levothyroxine Sodium (Levothyroxine Sodium 50 Mcg Tablet) 50 mcg PO DAILY@0600 [facility] Last Admin: 12/06/24 08:49 Dose: 50 mcg Documented By: CHARMAINE Magnesium Hydroxide (Milk Of Magnesia 30 Ml Oral.Susp) 30 ml PO DAILY PRN PRN Reason: Constipation Melatonin (Melatonin 3 Mg Tablet) 6 mg PO BEDTIME PRN PRN Reason: Insomnia Ondansetron HCl (Ondansetron Hcl 4 Mg/2 Ml Vial) 4 mg IVPUSH Q8H PRN PRN Reason: Nausea and Vomiting Pantoprazole Sodium (Pantoprazole Sodium 40 Mg/10 Ml Vial) 40 mg IVPUSH BID@0630,1630 [facility] Last Admin: 12/06/24 08:49 Dose: 40 mg Documented By: CHARMAINE Sodium Chloride (0.9 % Sodium Chloride Flush 3 Ml Syringe) 3 ml IVFLUSH QSHIFT [facility] Last Admin: 12/06/24 15:36 Dose: Not Given Documented By: MARY Non-Admin Reason: Not In Room Vitamin D (Cholecalciferol (Vitamin D3) 25 Mcg Tablet) 25 mcg PO DAILY [facility] Last Admin: 12/06/24 09:03 Dose: Not Given Documented By: CHARMAINE Non-Admin Reason: Physician Approved Labs 12/06/24 04:33 12/05/24 04:59 Labs: Laboratory Results - last 24 hr 12/06/24 04:33 MCV 85.5 MCH 26.3 L MCHC 30.8 L RDW 18.4 H Plt Count 111 L MPV Not Reportable Absolute Nucleated RBC 0.000 Nucleated RBC % (auto) 0.0 Microbiology Microbiology Results: Microbiology 12/05/24 Unknown Urine Culture - Final Urine clean catch - Clean Catch Midstream Assessment and Plan (1) Melena: Status: Acute Plan This is a 84-year-old male with pertinent history of 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 Acute GI bleed occult positive. H/H has remained stable. Treated with IV Protonix seen by Gastroenterology, underwent EGD today showing esophagitis, gastritis, duodenitis plan for PPI b.i.d. x1 month then once daily carafate for two weeks ESRD On hemodialysis M/ W/ . Nephrology consult pending, last HD Tuesday; will likely need dialysis prior to discharge tomorrow Hypothyroidism On Synthroid Gout On allopurinol History of CVA Hold aspirin in the setting of GI bleed. Abdominal aortic aneurysm 5.3 cm. Conservative management DVT prophylaxis: SCDs Full code. Discussed with patient at bedside Quality Stroke Does the patient have a stroke diagnosis?: No VTE Prior VTE?: No VTE Risk Level:: Medical - moderate - high VTE Device Contraindication: N/A - Device Ordered VTE Drug Contraindication: Treatment Not Indicated
[2024-12-06 18:01] LABS: Anion Gap 20 (12-20); Blood Urea Nitrogen 61 mg/dL (9-16); Calcium 10.1 mg/dL (8.4-10.2); Carbon Dioxide 23 mmol/L (22-29); Chloride 103 mmol/L (96-108); Creatinine Clr Calc Pharmacy 7.5; Estimated Glomerular Filt Rate 7; Glucose Random 44 mg/dL (60-115); Potassium 5.1 mmol/L (3.3-5.1); Sodium 141 mmol/L (135-145)
[2024-12-06 18:24] LABS: Glucose, Whole Blood 42 mg/dL (60-115)
[2024-12-06 18:24] LABS: Glucose, Whole Blood 49 mg/dL (60-115)
[2024-12-06 18:40] LABS: Glucose, Whole Blood 56 mg/dL (60-115)
[2024-12-06] MEDS: Glucose Gel 15 GM GEL..GRAM. PO (18:46)
[2024-12-06 19:19] LABS: Glucose, Whole Blood 92 mg/dL (60-115)
--- NOTE | 2024-12-06 19:19 | PC.NURSE ---
blood sugar 44 at 17:59 as critical results , pt alert and oriented eating dinner no s/s of hypoglycemia, Md aware blood sugar checked after meal 56, Glucose gel 15 grams PO given, blood sugar 92
[2024-12-06] MEDS: Atorvastatin Calcium 80 MG TABLET PO (20:22)
[2024-12-06] MEDS: Sucralfate 1 GM TABLET PO (20:22)
[2024-12-06] MEDS: 0.9 % Sodium Chloride Flush 3 ML SYRINGE IVFLUSH (20:28)
[2024-12-07 01:03] LABS: Glucose, Whole Blood 147 mg/dL (60-115)
[2024-12-07 03:37] VITALS: BP 135/60; PULSE 69; RESP 20; TEMP 36.3; O2SAT 92
[2024-12-07] MEDS: Pantoprazole Sodium 40 MG/10 ML VIAL IVPUSH (06:06)
[2024-12-07 06:11] LABS: Hematocrit 29.1 % (42.0-52.0); Hemoglobin 9.2 g/dl (14.0-18.0)
[2024-12-07 06:25] LABS: Anion Gap 18 (12-20); Blood Urea Nitrogen 69 mg/dL (9-16); Calcium 10.1 mg/dL (8.4-10.2); Carbon Dioxide 24 mmol/L (22-29); Chloride 102 mmol/L (96-108); Creatinine Clr Calc Pharmacy 6.7; Estimated Glomerular Filt Rate 6; Glucose Random 103 mg/dL (60-115); Potassium 4.8 mmol/L (3.3-5.1); Sodium 139 mmol/L (135-145)
[2024-12-07 07:53] LABS: Estimated Average Glucose 103 mg/dL; Hemoglobin A1C 82.3796 umol/L; Hemoglobin A1c % 5.2 % (<6.0); Total Hemoglobin (HGBA1C) 2449.3757 umol/L
--- NOTE | 2024-12-07 08:18 | HO.POSTANES ---
Post Anesthesia Evaluation Post Anesthesia Evaluation Date of Service: 12/07/24 Vital Signs: Vital Signs Temp Pulse Resp BP Pulse Ox O2 Del Method 12/07/24 03:37 97.4 F 69 20 135/60 92 Room Air 12/06/24 23:51 98.7 F 72 20 152/65 H 93 Room Air Anesthesia: Monitored Mental Status: Awake Pain Control: Satisfactory Nausea/Vomiting: None Hydration: Adequate Anesthesia-Related Issues: No Anes. Related Issues
[2024-12-07] MEDS: Cholecalciferol (Vitamin D3) 25 MCG TABLET PO (11:16)
[2024-12-07] MEDS: Folic Acid 1 MG TABLET PO (11:16)
[2024-12-07] MEDS: Cyanocobalamin (Vitamin B-12) 1,000 MCG TABLET 1000 MCG PO (11:16)
[2024-12-07] MEDS: 0.9 % Sodium Chloride Flush 3 ML SYRINGE IVFLUSH (11:16)
[2024-12-07] MEDS: allopurinoL 100 MG TABLET PO (11:16)
[2024-12-07] MEDS: Sucralfate 1 GM TABLET PO (11:16)
--- NOTE | 2024-12-07 11:23 | P.CDIM_ITS ---
PROVIDER RESPONSE TEXT: To clarify, the appropriate diagnosis supported by the clinical indicators: Other (explain): probably acute QUERY TEXT: PHYSICIAN'S DOCUMENTATION REQUEST Date of Query: 12/07/2024 09:20 AM EST Patient Name: Bi Forrest Admit Date: 12/05/2024 Dear Michelle ROQUE, A review of the medical record indicates additional documentation may be needed. Please review below and update the documentation accordingly. Clinical Indicators: GI op note EGD 12/06 - Impression: Erosive duodenitis Duodenum: moderate severe erosive duodenitis, no bleeding noted. PPI b.i.d. Clarify which of the following accurately represents the acuity of the Erosive duodenitis: Possible options might include: Acute Chronic Other (explain) Clinically unable to determine (explain) Thank you, Minnie Dotson, CCS, CDIS Use of terms such as suspected, likely, concern for, or probable (associated with a specific diagnosi s that is being evaluated, monitored, or treated as if it exists) are acceptable and can be coded in the inpatient se tting, when documented at the time of discharge. Please use your independent medical judgment in providing your response. THIS QUERY IS PART OF THE PERMANENT MEDICAL RECORD
[2024-12-07 12:00] VITALS: BP 133/72; PULSE 84; RESP 16; TEMP 37.1; O2SAT 96
--- NOTE | 2024-12-07 12:12 | MHC.CM.PN ---
Second IMM, pt has been medically cleared for DC. CM spoke to pt. and then called his son at the pt.'s suggestion. Son will transport him home and he assists in his care and managing his medications, so the son will review this with the nurse because pt. is memory impaired. DCP; is home, resume [employer] services.
== END 2024-12-07 16:11 | disposition home or self-care (01) | DRG 377 ==
LOC: HO.ED 17:36 → HO.EDOVER 19:20 → HO.IMC 12-06 14:39
PROVIDERS: Internal Medicine Gastroenterology; Nurse Practitioner Acute Care; Admitting Provider Student in an Organized Health Care Education/Training Program; Emergency Provider Emergency Medicine; PCP Family Medicine; Visit Provider Physician Assistant Medical
PROC: 0DJ08ZZ Inspection of Upper Intestinal Tract, Via Natural or Artificial Opening Endoscopic (ICD-10-PCS; CPT 43235; principal; 2024-12-06 13:30)
DX: K26.0 Acute duodenal ulcer with hemorrhage (principal); N18.6 End stage renal disease; I69.354 Hemiplegia and hemiparesis following cerebral infarction affecting left non-dominant side; K29.41 Chronic atrophic gastritis with bleeding; Z99.2 Dependence on renal dialysis; E03.9 Hypothyroidism, unspecified; D64.9 Anemia, unspecified; M10.9 Gout, unspecified; I71.40 Abdominal aortic aneurysm, without rupture, unspecified; K22.11 Ulcer of esophagus with bleeding; K44.9 Diaphragmatic hernia without obstruction or gangrene; Z20.822 Contact with and (suspected) exposure to COVID-19; Z79.82 Long term (current) use of aspirin; Z79.890 Hormone replacement therapy; Z79.899 Other long term (current) drug therapy
CPT/HCPCS: 43239; 0241U; 36415; 71045; 74176; 80048; 80076; 81001; 82272; 82947; 83036; 83690; 83880; 84484; 85014; 85018; 85025; 85027; 86850; 86900; 86901; 87086; 88305; 88313; 88342; 90999; 93005; 99222; 99285; J2003; J2270; J2470; J2704; J3010

== ENCOUNTER → 2024-12-04 14:08 | Outpatient (BNV) | payer OTHER, SELFPAY | PROVIDERS: Admitting Provider Student in an Organized Health Care Education/Training Program; Emergency Provider Emergency Medicine; PCP Family Medicine; Visit Provider Internal Medicine Cardiovascular Disease | DX: R10.9 Unspecified abdominal pain (principal); K92.1 Melena | CPT/HCPCS: 93010 ==

== ENCOUNTER → 2024-12-04 14:08 | Outpatient (BNV) | payer OTHER, SELFPAY | PROVIDERS: Emergency Provider Emergency Medicine; PCP Family Medicine; Visit Provider Radiology Diagnostic Radiology | DX: R10.9 Unspecified abdominal pain (principal); N18.6 End stage renal disease; K92.1 Melena; J81.0 Acute pulmonary edema; J90 Pleural effusion, not elsewhere classified; I71.9 Aortic aneurysm of unspecified site, without rupture | CPT/HCPCS: 71045; 74176 ==

== ENCOUNTER → 2024-12-04 19:11 | Outpatient (BNV) | payer OTHER, SELFPAY | PROVIDERS: Admitting Provider Student in an Organized Health Care Education/Training Program; Emergency Provider Emergency Medicine; PCP Family Medicine; Visit Provider Internal Medicine Gastroenterology | DX: K92.1 Melena (principal) | CPT/HCPCS: 43239; 99223; 99232 ==

== ENCOUNTER → 2024-12-04 19:11 | Outpatient (BNV) | payer OTHER, SELFPAY | PROVIDERS: Admitting Provider Student in an Organized Health Care Education/Training Program; Emergency Provider Emergency Medicine; PCP Family Medicine; Visit Provider Student in an Organized Health Care Education/Training Program | DX: K62.5 Hemorrhage of anus and rectum (principal) | CPT/HCPCS: 99222; 99232 ==

== ENCOUNTER 2024-12-13 14:40 | Outpatient (REF) | payer OTHER, SELFPAY ==
--- OUTSIDE RECORDS SUMMARY | 2024-12-13 18:04 | XMS_ITS | Encounter Summary ---
Author Organization [employer] Address [address] [facility] [address] [place] [address] Care Team Providers Care Manager Security Name Role Phone Adriane Higuera MD Primary Care Provider [phone] Reason for Visit * Reason Comments Med Refill Encounter Details Date Type Department Care Team ([facility] st Contact Info) Description 02/21/2023 Refill [facility]INE [address] [place], [place] [phone] Alecia Flowers MD [address] [place], [place] [phone] Nausea Social History Tobacco Use Types Packs/Day [...] documented as of this encounter Care Teams Manager Security Relationship Specialty Start Date End Date Adriane Higuera MD [address] [place] [address] PCP - General Family Medicine 06/14/13 documented as of this encounter
--- OUTSIDE RECORDS SUMMARY | 2024-12-13 18:04 | XMS_ITS | Encounter Summary ---
Author Organization [employer] Address [address] [place] [address] Care Team Providers Care Drum Filler Name Role Phone Adriane Higuera MD Primary Care Provider [phone] Encounter Details Date Type Department Care Team [...] documented as of this encounter Care Teams Drum Filler Relationship Specialty Start Date End Date Adriane Higuera MD [address] [place] [address] PCP - General Family Medicine 06/14/13 documented as of this encounter
--- OUTSIDE RECORDS SUMMARY | 2024-12-13 18:04 | XMS_ITS | Encounter Summary ---
Author Organization [facility] [facility] Address [address] [facility] [address] [place] [address] Care Team Providers Care Dock Operations Supervisor Name Role Phone Adriane Higuera MD Primary Care Provider [phone] Reason for Referral * Consultation (Routine) - Closed Specialty Diagnoses / Procedures Referred By Contbrit t Referred To Contact Podiatry Diagnoses Type 2 diabetes mellitus with chronic kidney disease on chronic dialysis, without long-term current use of insulin (CMS/HCC) End stage renal disease (CMS/HCC) Venous insufficiency Adriane Higuera MD [address] [place] [address] Phone: tel: fax: Trevor Russell DPM [address] [address] Phone: tel: fax: Referral ID Status Reason Start Date Expiration Date V isits Requested Visits Authorized [id number] Closed Specialty Services Required 11/30/2023 11/29/2024 1 1 Encounter Details Date Type Department Care Team (Late st Contact Info) Description 11/30/2023 Orders Only [facility] MEDICINE [address] [place] [address] Adriane Higuera MD [address] [place], [place] Type 2 diabetes mellitus with chronic [...] dialysis, without long-term current use of insulin ([facility]) End stage renal disease ([facility]) Venous insufficiency Expected: 11/30/2023 (Approximate), Expires: 11/30/2024 documented as of this encounter Visit Diagnoses Diagnosis Type 2 diabetes mellitus with chronic kidney disease on chronic dialysis, without long-term current use of insulin ([facility])- Primary End stage renal disease ([facility]) End stage renal disease Venous insufficiency Unspecified venous (peripheral) insufficiency documented in this encounter Additional Health Concerns Assessment Noted Time PHQ-9 Depression Total Score: 0 02/02/20 23 3:52 PM EDT documented as of this encounter Care Teams Dock Operations Supervisor Relationship Specialty Start Date End Date Adriane Higuera MD [address] [place] [address] PCP - General Family Medicine 06/14/13 documented as of this encounter
--- OUTSIDE RECORDS SUMMARY | 2024-12-13 18:04 | XMS_ITS | Encounter Summary ---
Author Organization [employer] Address [address] [facility] [address] [place] [address] Care Team Providers Care Underwear Welter Name Role Phone Adriane Higuera MD Primary Care Provider [phone] Encounter Details Date Type Department Care Team (Late st Contact Info) Description 12/04/2024 Orders Only [facility] External Provider, [facility] Social History Tobacco Use Types [...] EST Narrative 12/04/2024 3:33 PM EST ? [facility] ?[address] ?[place] [address] ? CT Scan Report ? Signed ? Patient: Bi Forrest ?MR# ?? : [id number] ? : 1940 ?Acct:[id number] ? Age/Sex: 84 / M ?ADM Date: 12/04/24 ? Loc: HO.ED ? Attending Dr: ? Ordering Physician: Rhea Riley MD ?? Date of Service: 12/04/24 ?? Procedure(s): CT abdomen pelvis wo IV con ?? Accession Number(s): [id number] ? cc: Rhea Riley MD; Adriane Higuera MD ? Report Number: ?? [id number]: Total DLP = ??478.00 mGy-cm ?? EXAMINATION: [...] DD/ 1501 ? TD/TT: 12/04/24 1516 ? Marriage And Family Counselor: ? Procedure Note Donotuseinterpreter, Image - 12/04/[address] [place] [address] [address] Scan Report Signed Patient: Ramonita ForrestysMR# : [id number] : 9Acct:[id number] Age/Sex: 84 / MADM Date: 12/04/24 Loc: HO.ED Attending Dr: Ordering Physician: Rhea Riley MD Date of Service: 12/04/24 Procedure(s): CT abdomen pelvis wo IV con Accession Number(s): [id number] cc: Rhea Riley MD; Adriane Higuera MD Report Number: [id number]: Total DLP = 478.00 mGy-cm EXAMINATION: CT [...] 12/04/24 1530 DD/ 1501 TD/TT: 12/04/24 1516 Marriage And Family Counselor: us [facility] External Provider IMG CT PROCEDURES Final Result * XR Chest 1 View (12/04/2024 2:08 PM EST) Anatomical Region Laterality Modality Chest Radiographic Loren ging 12/04/2024 2:08 PM EST Narrative 12/04/2024 3:02 PM EST ? [facility] ?[address] ?[place] [address] ?XRay Report ? Signed ? Patient: Bi Forrest ?MR# ?? : [id number] ? : 1940 ?Acct:[id number] ? Age/Sex: 84 / M ?ADM Date: 12/04/24 ? Loc: HO.ED ? Attending Dr: ? Ordering Physician: Rhea Riley MD ?? Date of Service: 12/04/24 ?? Procedure(s): XR chest 1V ?? Accession Number(s): [id number] ? cc: Rhea Riley MD; Adriane Higuera [...] DD/ 1408 ? TD/TT: 12/04/24 1452 ? Marriage And Family Counselor: ? Procedure Note Donmilindter, Image - 12/04/[address] [address] XRay Report Signed Patient: Jori Forrest# : [id number] : 1940Acct:[id number] Age/Sex: 84 / MADM Date: 12/04/24 Loc: HO.ED Attending Dr: Ordering Physician: Rhea Riley MD Date of Service: 12/04/24 Procedure(s): XR chest 1V Accession Number(s): [id number] cc: Rhea Riley MD; Adriane Higuera MD [...] by: Kailash Mcclain MD 12/04/2024 02:59 PM [facility] Dictated By: Kailash Lambert MD Signed By: <Electronically signed by Kailash Keys MDin OV> 12/04/24 1459 DD/ 1408 TD/TT: 12/04/241451 Marriage And Family Counselor: us [facility] External Provider IMG XR PROCEDURES Final Result documented in this encounter Visit Diagnoses Not on filedocumented in this encounter Additional Health Concerns Assessment Noted Time PHQ-9 Depression Total Score: 0 11/13/19 25 1:31 PM EST documented as of this encounter Care Teams Underwear Welter Relationship Specialty Start Date End Date Adriane Higuera MD [address] [place] [address] PCP - General Family Medicine 06/14/13 documented as of this encounter
--- OUTSIDE RECORDS SUMMARY | 2024-12-13 18:04 | XMS_ITS | Encounter Summary ---
Author Organization [employer] Address [address] [facility] [address] [place] [address] Care Team Providers Care Director Custom Name Role Phone Adriane Higuera MD Primary Care Provider [phone] Encounter Details Date Type Department Care Team (Late st Contact Info) Description 11/13/2024 1:15 PM EST Office Visit [facility] MED[facility]INE [address] [place], [place] [phone] Adriane Higuera MD [address] [place], [place] [phone] Hemiparesis affecting left side as late effect [...] make his apartment more accessible. Seen by [facility] goldbeater, Dr. Valdez on 09/27/24. Follow up with transthoracic echocardiogram in 6 mo. Today: Pt is here with his caregiver / RETAIL DIRECTOR, Nhung. He reports he is still having [...] function panel annually End stage renal disease ([facility]) - Continue hemodialysis(MWF) - Continue to follow with Nephrology Essential hypertension - Goal BP < 130/80 per ACC/AHA guideline. - Slightly elevated in clinic 09/18/24 - Continue working on life style modifications. - Previously on metoprolol succinate 100 mg which was discontinued by intercell connector placer - Previously on ACEI, but discontinued lisinopril [...] left side as late effect of stroke ([facility]) - Primary Hypothyroidism - Most recent thyroid function test on 09/18/24 TSH 3.85 - Current replacement: Levothyroxine 50 mcg daily - Continue periodic thyroid function test. Ischemic heart disease - [facility] - Optimize risk factor management and secondary prevention - Rescheduled an appointment due to chest pain Protein calorie malnutrition ([facility]/HCC) - ESRD on HD - increase nutritional [...] THREE TIMES A WEEK MID TREATMENT DIRECTED Zdfnzctb-Sqobfjznc-TC 1 % solution INSTILL 5 DROPS INTO [...] A1C > 8% - Last eye exam: [facility] - Last comprehensive foot [...] PM ESTAssociated Problem(s): Ischemic heart disease - [facility] - Optimize risk factor management and [...] succinate 100 mg which was discontinued by intercell connector placer - Previously on ACEI, but discontinued lisinopril [...] left side as late effect of stroke ([facility])- Primary Essential hypertension Unspecified essential hypertension Ischemic heart disease Other specified forms of chronic ischemic heart disease End stage renal disease ([facility]) End stage renal disease Acquired hypothyroidism Unspecified hypothyroidism Type 2 diabetes mellitus with chronic kidney disease on chronic dialysis, without long-term current use of insulin ([facility]) Encounter for immunization Weight loss Loss of weight Protein-calorie malnutrition, unspecified severity ([facility]) Dyslipidemia Other and unspecified hyperlipidemia Allergic rhinitis, unspecified seasonality, unspecified trigger Subacute cough documented in this encounter Additional Health Concerns Assessment Noted Time PHQ-9 Depression Total Score: 0 11/13/19 25 1:31 PM EST documented as of this encounter Care Teams Director Custom Relationship Specialty Start Date End Date Adriane Higuera MD [address] [facility] [place] [address] PCP - General Family Medicine 06/14/13 documented as of this encounter
--- OUTSIDE RECORDS SUMMARY | 2024-12-13 18:04 | XMS_ITS | Encounter Summary ---
Author Organization [employer] Address [address] [facility] 7t [place] [address] Care Team Providers Care Heat Welder Plastics Name Role Phone Adriane Higuera MD Primary Care Provider [phone] Reason for Visit * Reason Onset Date Comments Durable Medical Equipment 11/30/2024 Boost Encounter Details Date Type Department Care Team ([facility] st Contact Info) Description 11/30/2024 Telephone [facility] [address] [place], [place] [phone] Adriane Higuera MD [address] [place], [place] [phone] Durable Medical Equipment (Boost) Social History Tobacco [...] DME for Boost signed and faxed to [facility]. Confirmation received and sent to [facility]. If patient calls to check status on above, please advise them to contact [facility] resident care provider . * Telephone Encounter - Zhane Alanis [...] documented as of this encounter Care Teams Heat Welder Plastics Relationship Specialty Start Date End Date Adriane Higuera MD [address] [place] [address] PCP - General Family Medicine 06/14/13 documented as of this encounter
--- OUTSIDE RECORDS SUMMARY | 2024-12-13 18:05 | XMS_ITS | Encounter Summary ---
Author Organization [employer] Address [address] [facility] 7t [place] [address] Care Team Providers Care Meat Stringer Name Role Phone Adriane Higuera MD Primary Care Provider [phone] Reason for Visit * Reason Onset Date Comments may recall 12/11/2024 Encounter Details Date Type Department Care Team ([facility] st Contact Info) Description 12/11/2024 Telephone [facility] [address] [place], [place] [phone] Adriane Higuera MD [address] [place], [place] [phone] may recall Social History Tobacco Use Types Packs/Day Years [...] Telephone Encounter - Aydee Hein MA - 12/11/2024 9:33 AM EST Irma called pt to schedule a recall appointment for february . Appointment was declined . Pt wants to be seen sooner because pt was in the er room . Irma told pt message will be forward to triage nurse so that pt can be seen sooner documented in this encounter Plan of Treatment Not on file documented as of this encounter Visit Diagnoses Not on filedocumented in this encounter Additional Health Concerns Assessment Noted Time PHQ-9 Depression Total Score: 0 11/13/19 1:31 PM EST documented as of this encounter Care Teams Meat Stringer Relationship Specialty Start Date End Date Adraine Higuera MD [address] [place] [id number] PCP - General Family Medicine 06/14/13 documented as of this encounter
--- OUTSIDE RECORDS SUMMARY | 2024-12-13 18:05 | XMS_ITS | Encounter Summary ---
Author Organization [employer] [facility] Address [address] [facility] 7t [place] [address] Care Team Providers Care Classifier Name Role Phone Adriane Higuera MD Primary Care Provider Encounter Details Date Type Department Care Team (Late st Contact Info) Description 10/20/2022 Orders Only [facility] [address] [place], [place] [phone] Abbey Person LPN Social History Tobacco Use [...] on filedocumented in this encounter Care Teams Classifier Relationship Specialty Start Date End Date Adriane Higuera MD [address] [place] [address] PCP - General Family Medicine 06/14/13 documented as of this encounter
--- OUTSIDE RECORDS SUMMARY | 2024-12-13 18:05 | XMS_ITS | Encounter Summary ---
Author Organization [facility] Address [address] [phone] Phone Care Team Providers Care Animal Husbandry Technician Name Role Phone Adriane Higuera MD Primary Care Provider [phone] Encounter Details Date Type Department Care Team (Late st Contact Info) Description 11/21/2024 Treatment [facility]. [address] [phone] Elder Alfaro MD [address] [phone] Social History Tobacco Use Types [...] care for end stage renal disease. Attending Mail Truck Driver: ELDER ALFARO MD Dialysis Location: [facility] Schedule: Shift: 2 OVERVIEW Patient is [...] on filedocumented in this encounter Care Teams Animal Husbandry Technician Relationship Specialty Start Date End Date Adriane Higuera MD [address] [place] [id number] PCP - General Family Medicine 07/17/24 documented as of this encounter
--- OUTSIDE RECORDS SUMMARY | 2024-12-13 18:05 | XMS_ITS | Encounter Summary ---
Author Organization [facility] Address [address] [address] Phone Care Team Providers Care Test Pilot Name Role Phone Adriane Higuera MD Primary Care Provider [phone] Encounter Details Date Type Department Care Team (Late st Contact Info) Description 12/12/2024 Treatment [facility] P. [address] [phone] Elder Alfaro MD [address] [phone] End stage renal disease; Dependence on renal dialysis Social History Tobacco Use Types Packs/Day Years [...] Dialysis Note - Elder Alfaro MD - 12/12/2024 12:00 AM EST Patient: Bi Davey : 1940 Note Type: Dialysis Rounds-Basic Telehealth Service Date: 12/12/2024 Telehealth encounter using audiovisual technology, performed according to state requirements. Appropriate patient consent obtained. This patient was personally seen for a basic visit as part of routine monthly dialysis care for end stage renal disease. Attending Service Greeter: ELDER ALFARO MD Dialysis Location: [facility] Schedule: Shift: 2 ADEQUACY ASSESSMENT Kt/V, [...] 139 (10/17/24) 142 (09/12/24) ANEMIA ASSESSMENT Hgb 10.1 (11/28/24) 10.6 (11/21/24) 11.5 (11/14/24) Iron Saturation (TSat) 17 (11/14/24) 17 (10/17/24) [...] 4.5 (10/17/24) ADDITIONAL COMMENT COMMENTS: 11/21/24 stable 12/12/24 stable 10/09/24 stable 10/12/23 stable 10/19/24 stable [...] stable Signed by: ELDER ALFARO MD on 12/12/2024 at 01:02:18 PM documented in this encounter Plan of Treatment Not on file documented as of this encounter Visit Diagnoses Diagnosis End stage renal disease Dependence on renal dialysis documented in this encounter Care Teams Test Pilot Relationship Specialty Start Date End Date Adriane Higuera MD [address] [place] [id number] PCP - General Family Medicine 07/17/24 documented as of this encounter
--- OUTSIDE RECORDS SUMMARY | 2024-12-13 18:05 | XMS_ITS | Encounter Summary ---
Author Organization [employer] [facility] Address [address] [facility] [address] [place] [address] Care Team Providers Care Tube Cleaning Operator Name Role Phone Adriaen Higuera MD Primary Care Provider [phone] Reason for Referral * Imaging (Urgent) - Pending Review Specialty Diagnoses / Procedures Referred By Contac t Referred To Contact Radiology Diagnoses Nonintractable episodic headache, unspecified headache type Procedures CT Head w/o Contrast My [facility] [address] [place] [address] Phone: tel: fax: [address] Phone: tel: fax: Referral ID Status Reason Start Date Expiration Date V isits Requested Visits Authorized [id number] Pending Review 12/13/2024 12/13/2025 1 1 * Consultation (Urgent) - Authorized Specialty Diagnoses / Procedures Referred By Contac t Referred To Contact Gastroenterology Diagnoses Gastrointestinal hemorrhage with melena Erosive esophagitis Atrophic gastritis with hemorrhage Duodenitis with bleeding My Hawkins ANP [address] [place] [address] Phone: tel: fax: [facility] Referral ID Status Reason Start Date Expiration Date Visits Requested Visits Authorized [id number] Authorized Specialty Services Required 12/13/2024 12/13/2025 1 1 Encounter Details Date Type Department Care Team (Latest Contact Info) Description 12/13/2024 1:30 PM EST Office Visit [facility] [address] [place] [address] My Hawkins ANP [address] [place] [address] Gastrointestinal hemorrhage with melena (Primary Dx); Type 2 diabetes mellitus with chronic kidney disease on chronic dialysis, without long-term current use of insulin (CMS/HCC); Erosive esophagitis; Atrophic gastritis with hemorrhage; Duodenitis with bleeding; Hospital discharge follow-up; Pleural effusion on left; Aneurysm of descending thoracic 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 (CMS/HCC); Essential hypertension; Bruise; Confusion; Nonintractable episodic headache, unspecified headache type Social History Tobacco Use Types Packs/Day Years [...] Sign Reading Time Taken Comments Blood Pressure 158/72 12/13/2024 1:52 PM EST Pulse 91 12/13/2024 1:52 PM EST Temperature 36.4 ??C (97.6 ??F) 12/13/2024 1:52 PM ES T Respiratory Rate 18 12/13/2024 1:52 PM EST Oxygen Saturation 95% 12/13/2024 1:52 PM EST Inhaled Oxygen Concentration - - Weight 68.4 kg (150 lb 12.8 oz) 12/13/2024 1:52 PM EST Height 175.3 cm (5' 9 ) 12/13/2024 1:52 PM EST Body Mass Index 22.27 12/13/2024 1:52 PM EST documented in this encounter Progress Notes * MICK Mckay - 12/13/2024 1:30 PM EST SUBJECTIVE: Bi Hall is a 84 y.o. year old male who presents for HDF . Here today w/ FIRE EQUIPMENT INSPECTOR HELPER Nhung and son Johnny joins by phone. Interpretation by FIRE EQUIPMENT INSPECTOR HELPER per pt preference. PMH CAD s/p CABG, ESRD on HD, s/p CVA with left hemiparesis, hypothyroid and diabetes mellitus type2, thoracic aortic aneurysm, dysphagia (esophageal stricture), GERD w/ erosive esophagitis, atrophic gastritis, erosive duodenitis L arm AV fistula Now GIB 12/04/24 On HD for ESRD Tuesday Acute Concerns: Here today for HDF after [place] [facility] [place]2024-12/06/2024 after presenting for evaluation of abdominal pain, nausea, vomiting, and black diarrhea, for 5 days. Guaiac was positive for blood. Not on anticoagulation therapy. Initiated on IV Protonix and admitted. H/H 10.5/34.5, PLT 101 eCrCl 10.[address] Tafoya EGD 12/06/2024 which showed erosive esophagitis, atrophic gastritis, erosive duodenitis He was discharged with PPI 40 mg twice daily for 1 month and then 40 mg once daily after that. Alsorecommended Carafate for 2 weeks. Had 1 episode of hypoglycemia improved with glucose gel suspected it was due to being NPO. Of note, see chest XR resulted below. Chest x-ray 12/04/2024: IMPRESSION: Pulmonary edema and left-sided Moderate volume pleural effusion. 7 cm thoracic aortic aneurysm and questionable status post stenting. Recommend CT angiography thoracic aorta. CT/CT abdomen pelvis wo IV con IMPRESSION: 1. Colonic diverticulosis without evidence of diverticulitis. 2. Cholelithiasis. 3. 5.3 cm abdominal aortic aneurysm without significant change. TODAY: His appetite is coming back, no diarrhea now. He has not had nausea/vomiting since leaving hospital. Taking meds as rx'd (pantoprazole 40mg BID and sucralfate 4x/d). They would like eval of a bump on his R hip. On exam he has a bruise on upper buttock and a palpable soft tissue lump corresponding w/ bruise. Noticed after discharge. Pt denies fall but Nhung mccartney may just not remember it. However - reports intermittent severe PEREZ that has been waking him from sleep. PEREZ does not last long, but son reports pt is tearful when it occurs. Better w/ tylenol and when he puts vicks in nostrils. Has constipation. Cough worse at night, not coughing anything much up. No fever, no chills. Sometimes nausea when he coughs a lot. Has positional bed and positional chair. Nhung reports she thinks cough is worse laying down as well as that he has worsening BLE edema than baseline. Distal pulses intact and edema ispresent 2+ but non-pitting. Both Nhung and Johnny note that pt seems more confused or out of if since his hospitalization, mostly in afternoon or evening. For example, if you ask him to sign something in evening, he may not be able to, or he just seems off . Today he is engaged in appt and appropriate. Did have head MRI during admission at [facility] [place] w/ no acute finding, but chronic microangiopathy. Dx TIA. His encephalopathy resolved and cognition returned to his baseline at that time. Hospital Course and Medication Reconciliation [facility] (12/04/24-12/07/24) Patient w/ PMH including ESRD on HD presented for evaluation of black stools and abdominal pain. Stool occult positive and patient initiated on IV pantoprazole. GI recommended EGD which showed erosive esophagitis, atrophic gastritis, erosive duodenitis. GI recommended increasing PPI to 40 mg twice a day x 1 month then once daily after that and sucralfate for 2 weeks. Medication changes that occurred during hospitalization include: Added Sucralfate 1 gram four times a day with meals Changed Pantoprazole 40 mg once daily increased to 40 mg twice a day x 30 days Discontinued: none Preferred Pharmacy: [facility] [address] [facility] [address] [facility] [address] Medbox: Yes Date: 12/11/24 Patient Reported History Patients son answer the phone (not in HIPAA) and stated they could read off what medications patient was taking however did state patient has an appointment tomorrow Listed discharge medications as part of patients regimen Reported patient only takes tylenol for pain as needed Pharmacist Notes ESRD on HD; Aspirin- Avoid use based on kidney function as it may exacerbate uremic GI and hematologic symptomshowever patient has extensive cardiac history including FL, aortic aneurysm and stroke. Immunizations The FLIS database was reconciled and patient is indicated for the following immunizations: RSV (age> 75 yo) Unable to discuss with son as they are not in HIPAA Goals Reduce hospital readmissions and improve health outcomes Follow up: 12/13/24 @ 1:30 pm Social History Social History Narrative Not on file Patient Active Problem List Diagnosis Sensorineural hearing loss, bilateral History of hemorrhagic stroke with residual hemiparesis (CMS/HCC) Aneurysm of descending aorta (CMS/HCC) Aneurysm of thoracic aorta (CMS/HCC) Aortic valve regurgitation Atherosclerosis of coronary artery Coronary artery disease involving emmonak coronary artery of emmonak heart without angina pectoris Hypertensive renal disease Diabetes mellitus, type 2 (CMS/HCC) Dependence on renal dialysis (CMS/HCC) Diabetic nephropathy associated with type 2 diabetes mellitus (CMS/HCC) Dyslipidemia Diverticular disease End stage renal disease (CMS/HCC) Essential hypertension Gout 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 (CMS/HCC) History of aortic valve replacement History of coronary artery bypass surgery History of myocardial infarction Hypothyroidism Ischemic heart disease History of prostate cancer Obstructive sleep apnea syndrome Osteoarthritis of hip Dysphagia Choking sensation Left ear pain Simple renal cyst Venous insufficiency History of repair of thoracic aortic aneurysm Esophageal stricture Status post dilatation of esophageal stricture GAVE (gastric antral vascular ectasia) Hiatal hernia Gait instability Low back pain radiating to left lower extremity Left hip pain Second degree heart block GI bleed Chest pain of uncertain etiology Protein calorie malnutrition (CMS/HCC) Weight loss Allergic rhinitis Erosive esophagitis Past Surgical History: Procedure Laterality Date CATARACT EXTRACTION Bilateral CORONARY ARTERY BYPASS GRAFT 02/22/2014 PROSTATECTOMY 2000 THORACIC AORTIC ANEURYSM REPAIR 02/22/2014 ascending aortic, aortic arch, and descending aortic aneurysm repair TONSILLECTOMY No family history on file. Review of Systems Constitutional: Negative for chills, fatigue, fever and unexpected weight change. HENT: Negative for congestion and sore throat. Eyes: Negative for visual disturbance. Respiratory: Positive for cough. Negative for shortness of breath and wheezing. Cardiovascular: Negative for chest pain. Gastrointestinal: Positive for constipation. Negative for abdominal pain, blood in stool, diarrhea,rectal pain and vomiting. Endocrine: Negative for polydipsia, polyphagia and polyuria. Musculoskeletal: Positive for arthralgias. Skin: Negative for color change. Neurological: Positive for headaches. Negative for weakness. OBJECTIVE: Vitals: 12/13/24 1352 BP: (!) 158/72 BP Location: Right arm Patient Position: Sitting BP Cuff Size: Adult Pulse: 91 Resp: 18 Temp: 97.6 ??F (36.4 ??C) TempSrc: Temporal SpO2: 95% Weight: 150 lb 12.8 oz (68.4 kg) Height: 5' 9 (1.753 m) Lab Results Component Value Date HGBA1C 5.7 12/13/2024 Physical Exam Vitals reviewed. Constitutional: General: He is not in acute distress. Appearance: He is not toxic-appearing. HENT: Head: Normocephalic and atraumatic. Comments: Hearing aids in place Eyes: Extraocular Movements: Extraocular movements intact. Cardiovascular: Rate and Rhythm: Normal rate and regular rhythm. Pulses: Posterior tibial pulses are 1+ on the right side and 1+ on the left side. Heart sounds: Murmur heard. Systolic murmur is present with a grade of 3/6. Pulmonary: Effort: Pulmonary effort is normal. No accessory muscle usage or respiratory distress. Breath sounds: Normal breath sounds and air entry. No wheezing or rhonchi. Musculoskeletal: Right lower le+ Edema present. Left lower le+ Edema present. Skin: Comments: Bruise with corresponding soft tissue mass on right upper buttock Neurological: Mental Status: He is alert and oriented to person, place, and time. Mental status is at baseline. Comments: Seated in wheelchair, requires 2 person assist to stand Psychiatric: Mood and Affect: Mood normal. Behavior: Behavior normal. ASSESSMENT/PLAN Diagnoses and all orders for this visit: Gastrointestinal hemorrhage with melena (Primary) Comments: Will refer to GI for ongoing care. Continue PPI and sucralfate as recommended by hospital. Orders: - CBC auto differential; Future Type 2 diabetes mellitus with chronic kidney disease on chronic dialysis, without long-term currentuse of insulin ([facility]/HCC) Comments: A1c is stable without meds. Rx'd glucometer today for home use as needed. Orders: - POCT Glucose - POCT HGB A1C - Blood Glucose Monitoring Suppl (FreeStyle Lite) w/Device kit; 1 each 2 times daily. - Lancets Ultra Thin 30G misc; Use BID as needed for BG check - FREESTYLE LITE test strip; Use as instructed - Basic Metabolic Panel; Future Erosive esophagitis Atrophic gastritis with hemorrhage Duodenitis with bleeding Hospital discharge follow-up Pleural effusion on left Comments: As noted on x-ray on admission to hospital 12/04/2024. Has symptoms concerning for CHF though lungs clear today on auscultation. Recommend BNP, consider echo update. Elevate legs, low-salt diet. Orders: - B Type Natriuretic Peptide (BNP); Future Aneurysm of descending thoracic 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 (CMS/HCC) Comments: With we think CTA pending. Son Johnny received text to schedule. I asked them to call us if they do not hear by early next week for a CTA thoracic. Essential hypertension Comments: No change to meds today. Patient with complex medical history and CVA, prefer to tolerate slightly higher BP. Rx'd BP machine for home use. Orders: - Blood Pressure kit; 1 each 2 times daily. Bruise Comments: Recommend ice to affected area and monitor for any change. If getting larger please let us know. Confusion ?sundowning, pt appropriate and participatory in visit today. Nonintractable episodic headache, unspecified headache type Comments: Severe headache of unspecified duration, while better with Tylenol and Vicks, concerning that it wakes him from sleep. Also patient with TIA and CVA history. Repeat head CT. Follow Up: w/ PCP 1 mo Current Outpatient Medications on File Prior to Visit Medication Sig Dispense Refill acetaminophen (Tylenol) 500 MG tablet Take by mouth. 1 tablet by mouth daily as needed for pain allopurinol (Zyloprim) 100 MG tablet TAKE 1 TABLET BY MOUTH EVERY MORNING 30 tablet 6 aspirin (Aspirin Adult Low Strength) 81 MG EC tablet TAKE 1 TABLET BY MOUTH EVERY MORNING 90 tablet3 atorvastatin (Lipitor) 80 MG tablet TAKE 1 TABLET BY MOUTH AT BEDTIME 90 tablet 3 cholecalciferol (Vitamin D High Potency) 25 MCG (1000 UT) capsule TAKE 1 CAPSULE BY MOUTH EVERY MORNING 90 capsule 3 cyanocobalamin (Vitamin B-12) 1000 MCG tablet TAKE 1 TABLET BY MOUTH EVERY MORNING 90 tablet 3 folic acid (Folvite) 1 MG tablet TAKE 1 TABLET BY MOUTH EVERY MORNING 30 tablet 5 guaiFENesin (Humibid 3) 400 MG tablet Take 1 tablet (400 mg) by mouth every 6 (six) hours if neededfor cough. 45 tablet 1 ipratropium (Atrovent) 0.03 % nasal spray Use 1 spray to each nostril once daily 30 mL 3 lactulose (Chronulac) 10 GM/15ML solution Take 15 mL by mouth once every 2-3 days as needed for constipation. (Patient not taking: Reported on 12/12/2024) 473 mL 1 levothyroxine (Synthroid, Levoxyl) 50 MCG tablet TAKE 1 TABLET BY MOUTH ONCE A DAY^1R1 90 tablet 3 midodrine (Proamatine) 5 MG tablet TAKE 1 TABLET BY MOUTH THREE TIMES A WEEK MID TREATMENT DIRECTED Sbgsoeze-Mkawcjgpv-MG 1 % solution INSTILL 5 DROPS INTO THE LEFT EAR DAILY pantoprazole (Protonix) 40 MG EC tablet Take 1 tablet (40 mg) by mouth before breakfast. Do not crush, chew, or split. (Patient taking differently: Take 40 mg by mouth 2 times daily. Taking TWICE A DAY for 30 days starting 12/07/24 then returning to once daily) 90 tablet 3 Restasis MultiDose 0.05 % ophthalmic emulsion Administer 1 drop into both eyes 2 times daily. sucralfate (Carafate) 1 g tablet Take 1 g by mouth before breakfast, before lunch, before evening meal, and at bedtime. [DISCONTINUED] ondansetron (Zofran) 4 MG tablet TAKE ONE TABLET BY MOUTH EVERY 8 HOURS NEEDED NAUSEA (VIAL) 84 tablet 0 [DISCONTINUED] terbinafine (LamISIL AT) 1 % cream Wash feet, dry, very well especially between toes. Apply cream between toes once or twice daily everyday until it resolves. 42 g 1 [DISCONTINUED] traMADol (Ultram) 50 MG tablet Take 1 tablet (50 mg) by mouth if needed at bedtime for severe pain. 28 tablet 0 No current facility-administered medications on file prior to visit. documented in this encounter Plan of Treatment Scheduled Orders Name Type Priority Associated Diagnoses Orde r Schedule B Type Natriuretic Peptide (BNP) Lab Routine Pleural effusion on left Expected: 12/13/2024, Expires: 12/13/2025 Basic Metabolic Panel Lab Routine Type 2 diabetes mellitus with chronic kidney disease on chronic dialysis, without long-term current use of insulin ([facility]) Expected: 12/13/2024 (Approximate), Expires: 12/13/2025 CBC auto differential Lab Routine Gastrointestinal hemorrhage with melena Expected: 12/13/2024 (Approximate), Expires: 12/13/2025 CT Head w/o Contrast Imaging Urgent Nonintractable episodic headache, unspecified headache type Expected: 12/13/2024, Expires: 12/13/2025 Scheduled Referrals Name Type Priority Associated Diagnoses Order Schedule Referral to Gastroenterology Outpatient Referral Urgent Gastrointestinal hemorrhage with melena Erosive esophagitis Atrophic gastritis with hemorrhage Duodenitis with bleeding Expected: 12/13/2024 (Approximate), Expires: 12/13/2025 documented as of this encounter Procedures Procedure Name Priority Date/Time Associated Diagnosis Comments POCT GLYCATED HEMOGLOBIN, TOTAL Routine 12/13/2024 2:02 PM EST Type 2 diabetes mellitus with chronic kidney disease on chronic dialysis, without long-term current use of insulin ([facility]) POCT GLUCOSE Routine 12/13/2024 1:54 PM EST Type 2 diabetes mellitus with chronic kidney disease on chronic dialysis, without long-term current use of insulin ([facility]) documented in this encounter Results * POCT HGB A1C (12/13/2024 2:02 PM EST) Hemoglobin A1C 5.7 4.0 - 6.0 % QC Media Lot # [id number] Lot# Expiration Date [id number] Blood 12/13/2024 2:02 PM EST us My [facility] POINT OF CARE TEST ENTER/EDIT OR DERABLES Final Result * POCT Glucose (12/13/2024 1:54 PM EST) Glucose Blood, POC 162 60 - 200 mg/dL QC Media Lot # [id number] Lot# Expiration Date 82,625 Blood Capillary blood specimen / Unknown 12/13/2024 1:54 PM EST us My [facility] POINT OF CARE TEST ENTER/EDIT OR DERABLES Final Result documented in this encounter Visit Diagnoses Diagnosis Gastrointestinal hemorrhage with melena- Primary Type 2 diabetes mellitus with chronic kidney disease on chronic dialysis, without long-term current use of insulin ([facility]) Erosive esophagitis Other esophagitis Atrophic gastritis with hemorrhage Duodenitis with bleeding Hospital discharge follow-up Other follow-up examination Pleural effusion on left Unspecified pleural effusion Aneurysm of descending thoracic 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 ([facility]) Essential hypertension Unspecified essential hypertension Bruise Contusion of unspecified site Confusion Unspecified psychosis Nonintractable episodic headache, unspecified headache type documented in this encounter Additional Health Concerns Assessment Noted Time PHQ-9 Depression Total Score: 0 11/13/19 25 1:31 PM EST documented as of this encounter Care Teams Tube Cleaning Operator Relationship Specialty Start Date End Date Adriane Higuera MD [address] [place] [address] PCP - General Family Medicine 06/14/13 documented as of this encounter
--- OUTSIDE RECORDS SUMMARY | 2024-12-13 18:05 | XMS_ITS | Encounter Summary ---
Author Organization [employer] [facility] Address [address] [facility] [address] [facility] [address] [place] [address] Care Team Providers Care Security Guard Supervisor Name Role Phone Adriane Higuera MD Primary Care Provider [phone] Reason for Visit * Reason Comments Med Refill Encounter Details Date Type Department Care Team (Late st Contact Info) Description 01/27/2023 Refill [facility] [address] [place], [place] [phone] Adriane Higuera MD [address] [place] [address] Nausea Social History Tobacco Use Types Packs/Day [...] alone documented in this encounter Care Teams Security Guard Supervisor Relationship Specialty Start Date End Date Adriane Higuera MD [address] [place], [place] [phone] PCP - General Family Medicine 06/14/13 documented as of this encounter
--- OUTSIDE RECORDS SUMMARY | 2024-12-13 18:05 | XMS_ITS | Encounter Summary ---
Author Organization [employer] Address [address] [facility] [address] [place] [address] Care Team Providers Care Brake Lining Maker Name Role Phone Adriane Higuera MD Primary Care Provider [phone] Reason for Visit * Reason Onset Date Comments Appointment Request 12/11/2024 Encounter Details Date Type Department Care Team ([facility] st Contact Info) Description 12/11/2024 Telephone [facility] [address] [place], [place] [phone] Adriane Higuera MD [address] [place], [place] [phone] Appointment Request Social History Tobacco Use Types Packs/Day Years [...] encounter Miscellaneous Notes * Telephone Encounter - Doris Brower RN - 12/11/2024 10:10 AM EST No toy assembly supervisor needed as this account underwriter speaks [place]. Spoke with pt son Gian who is caregiver regarding [facility] admission on 12/04 for abd pain and dark stools. Pt dx with anemia due to erosive esophagitis, gastritis, duodenitis. Per [facility] Notes plan at discharge is GI recommended increasing PPI to 40 mg twice daily for 1 month and then 40 mg once daily after that. Also recommended Carafate for 2 weeks. Per son pt just started Carafate yesterday, has PPI at home. Didhave one episode of dark stools yesterday. Denies pt having any abd pain or vomiting since. No GI follow up per son. Needs PCP follow up per notes. No appts with PCP within 2 weeks. Agrees to HDF with Green team provider this week. Instructed to continue all discharge instructions. To return to ER if abd pain recurs, black, tar like stools or bloody emesis. Son agrees. Call to [facility] ext [phone] to notify of HDF appt. Left VM with details. Protocol Used: Post-Hospitalization Follow-up Call (Adult) Protocol-Based Disposition: Callback or Video Visit by PCP Today Override (Final) Disposition: See in Office or Video Visit within 2 Weeks Override Reason: Organization policy Future Appointments Date Time Provider Department Center 12/13/2024 1:30 PM MICK Mckay MEDICINE [facility] Insurance verified as active per Real Time Eligibility in Epic. Video visit offer not recorded Positive Triage Question: * Condition / symptoms SAME (not improving) * All higher-acuity triage questions were negative Care Advice Discussed: * Note to Triager: Reassurance and Education - Feeling Better * Continue Treatment * Pain Medicines * Reasons To Call Back - You become worse * Telephone Encounter - Doris Brower RN - 12/11/2024 10:08 AM EST ----- Message from Aydee Hein sent at 12/11/2024 9:31 AM EST ----- Irma called pt to schedule a recall [...] documented as of this encounter Care Teams Brake Lining Maker Relationship Specialty Start Date End Date Adriane Higuera MD [address] [place] [address] PCP - General Family Medicine 06/14/13 documented as of this encounter
--- OUTSIDE RECORDS SUMMARY | 2024-12-13 18:05 | XMS_ITS | Encounter Summary ---
Author Organization [facility] Address [address] [address] Phone Care Team Providers Care Catering Truck Driver Name Role Phone Adriane Higuera MD Primary Care Provider [phone] Encounter Details Date Type Department Care Team (Late st Contact Info) Description 11/19/2024 Treatment [facility] [address] [phone] Elder Alfaro MD [address] [phone] Social History Tobacco Use Types [...] care for end stage renal disease. Attending Photograph Developer: ELDER ALFARO MD Dialysis Location: [facility] Schedule: Shift: 2 ADEQUACY ASSESSMENT Kt/V, [...] on filedocumented in this encounter Care Teams Catering Truck Driver Relationship Specialty Start Date End Date Adriane Higuera MD [address] [place] [id number] PCP - General Family Medicine 07/17/24 documented as of this encounter
--- OUTSIDE RECORDS SUMMARY | 2024-12-13 18:05 | XMS_ITS | Encounter Summary ---
Author Organization [employer] Address [address] [place] [address] Care Team Providers Care Correctional Classification Counselor Name Role Phone Adriane Higuera MD Primary Care Provider [phone] Encounter Details Date Type Department Care Team (Latest Contact Info) Description 12/13/2024 Travel Social History Tobacco Use Types Packs/Day [...] documented as of this encounter Care Teams Correctional Classification Counselor Relationship Specialty Start Date End Date Adriane Higuera MD [address] [place] [address] PCP - General Family Medicine 06/14/13 documented as of this encounter
--- OUTSIDE RECORDS SUMMARY | 2024-12-13 18:05 | XMS_ITS | Clinical Summary ---
Author Organization [employer] Address [address] [facility] 7[address] [place] [address] Care Team Providers Care Principal Consulting Engineer Name Role Phone Adriane Costa MD Primary Care Provider [phone] Allergies Active Allergy Reactions Criticality Noted Date [...] mouth daily as needed for pain Active lactulose (Chronulac) 10 GM/15ML solution Take 15 mL by mouth once every 2-3 days as needed for constipation. 473 mL 1 06/07/20 23 Active Additional Information Patient not taking.Reported on 12/12/2024 Neomycin-Polymy juan-HC 1 % solution INSTILL 5 DROPS INTO THE LEFT EAR DAILY 10/26/19 24 Active levothyroxine (Synthroid, Levoxyl) 50 MCG tablet TAKE 1 TABLET BY MOUTH ONCE A DAY^1R1 90 tablet 3 01/02/20 24 Active cholecalciferol (Vitamin D High Potency) 25 MCG (1000 UT) capsuleIndicati ons:Vitamin D deficiency TAKE 1 CAPSULE BY MOUTH EVERY MORNING 90 capsule 3 03/26/20 24 Active atorvastatin (Lipitor) 80 MG tabletIndicatio ns:Coronary artery disease involving paiute-shoshone coronary artery of paiute-shoshone heart without angina pectoris TAKE 1 TABLET BY MOUTH AT BEDTIME 90 tablet 3 03/26/20 24 Active cyanocobalamin (Vitamin B-12) 1000 MCG tabletIndicatio ns:Vitamin B12 deficiency TAKE 1 TABLET BY MOUTH EVERY MORNING 90 tablet 3 03/26/20 24 Active aspirin (Aspirin Adult Low Strength) 81 MG EC tabletIndicatio ns:Coronary artery disease involving paiute-shoshone coronary artery of paiute-shoshone heart without angina pectoris TAKE 1 TABLET BY MOUTH EVERY MORNING 90 tablet 3 03/26/20 24 Active allopurinol (Zyloprim) 100 MG tablet TAKE 1 TABLET BY MOUTH EVERY MORNING 30 tablet 6 07/27/20 24 Active pantoprazole (Protonix) 40 MG EC tablet Take 1 tablet (40 mg) by mouth before breakfast. Do not crush, chew, or split. 90 tablet 3 09/18/20 24 2024 Active Additional Information Patient taking differently:40 mg Oral2 times daily, Taking TWICE A DAY for 30 days starting 12/07/24 then returning to once daily, Reported on 12/12/2024 folic acid (Folvite) 1 MG tablet TAKE [...] daily 30 mL 3 11/20/19 25 Active sucralfate (Carafate) 1 g tablet Take 1 g by mouth before breakfast, before lunch, before evening meal, and at bedtime. 12/07/19 25 2024 Active Blood Pressure kitIndications: Essential hypertension 1 each 2 times daily. 1 kit 12/14/19 25 2025 Active Blood Glucose Monitoring Suppl (FreeStyle Lite) w/Device kitIndications: Type 2 diabetes mellitus with chronic kidney disease on chronic dialysis, without long-term current use of insulin ([facility]) 1 each 2 times daily. 1 kit 12/14/19 25 Active Lancets Ultra Thin 30G miscIndications :Type 2 diabetes mellitus with chronic kidney disease on chronic dialysis, without long-term current use of insulin (CMS/HCC) Use BID as needed for BG check 100 each 2 12/14/19 25 Active FREESTYLE LITE test stripIndication s:Type 2 diabetes mellitus with chronic kidney disease on chronic dialysis, without long-term current use of insulin ([facility]) Use as instructed 100 each 12 12/14/19 25 Active ipratropium (Atrovent) 0.03 % nasal spray Use 1 spray to each nostril once daily 30 mL 3 02/02/20 23 2024 Discontinued(R eorder (will not trigger notification to Pharmacy)) ondansetron (Zofran) 4 MG tabletIndicatio ns:Nausea TAKE ONE TABLET BY MOUTH EVERY 8 HOURS NEEDED NAUSEA (VIAL) 84 tablet 03/08/20 23 2024 Discontinued(M ed list cleanup (will not trigger notification to Pharmacy)) traMADol (Ultram) 50 MG tabletIndicatio ns:Low back pain radiating to left lower extremity,Left hip pain Take 1 tablet (50 mg) by mouth if needed at bedtime for severe pain. 28 tablet 06/26/20 24 2024 Discontinued(M ed list cleanup (will not trigger notification to Pharmacy)) terbinafine (LamISIL AT) 1 % creamIndication s:Tinea pedis of both feet Wash feet, dry, very well especially between toes. Apply cream between toes once or twice daily everyday until it resolves. 42 g 1 08/16/20 24 2024 Discontinued(M ed list cleanup (will not trigger notification to Pharmacy)) Active Problems Problem Noted Date Diagnosed Date Erosive esophagitis 12/13/2024 Protein calorie malnutrition 11/20/2024 Assessment & Plan [...] LUE. - pt was given appt with wet roller 09/27/24 - ER precautions discussed. 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 S/p EGD with dilation 17 mm on 06/28/23. Sims's esophagus, hiatal hernia and gastric antral vascular ectasia (GAVE). - Continue PPI. Hiatal hernia 12/01/2023 Assessment & Plan (12/13/2023 3:17 PM EST): - following with [facility], last seen on 08/29/23 - s/p [...] 5:16 PM BY ANDREW LEDESMA Referred to Humidifier Attendant CG was given the number to call to schedule appointment Assessment & Plan (11/13/2024 6:28 AM EST): >>ASSESSMENT AND PLAN FOR SENSORINEURAL HEARING LOSS, BILATERAL WRITTEN ON 06/07/2023 4:10 PM BY ANDREW LEDESMA Referred to Humidifier Attendant CG was given the number to call to schedule appointment >>ASSESSMENT AND PLAN FOR HL (HEARING LOSS) WRITTEN ON 06/07/2023 4:56 PM BY ANDREW LEDESMA Patient has new hearing aids Assessment & Plan (10/29/2022 7:04 AM EST): - previously seen by mobile phlebotomist and ENT - b/l sensorineural hearing loss - refer to mobile phlebotomist so that he can get hearing aids History of prostate cancer 10/28/2022 Assessment & Plan (07/06/2024 6:40 AM EDT): -s/p radical prostatectomy in 1999 -last seen by urologist in 2018 -prescribed [place] 1000 mcg urethral suppository -pt has not been using frequently -last PSA < 0.04 on 02/03/22 Assessment & Plan (10/30/2022 6:04 AM EST): -s/p radical prostatectomy in 1999 -last seen by urologist in 2018 -prescribed [place] 1000 mcg urethral suppository -pt has not been using frequently -last PSA < 0.04 on 02/03/22 Dependence on renal dialysis 02/05/2021 Assessment & Plan (12/02/2023 10:22 AM EST): -Continue to follow with Nephrology. -Continue current Nephrology indications of dialysis. -Have LEGAL ADMINISTRATIVE SECRETARY make contact for advisement on Ensure contraindication. Assessment & Plan (02/01/2023 5:13 PM EDT): -Dialysis days MWF -Continue current Tx plan per statistics tutor Assessment & Plan (10/30/2022 5:56 AM EST): -Dialysis days MWF -Continue current Tx plan per statistics tutor End stage renal disease 02/05/2021 Assessment & [...] & Plan (11/13/2024 6:38 PM EST): - [employer] [facility] - Optimize risk factor management and secondary prevention - Rescheduled an appointment due to chest pain Assessment & Plan (09/19/2024 4:09 PM EST): - [employer] [facility] - Optimize risk factor management and secondary prevention - Rescheduled an appointment due to chest pain Assessment & Plan (07/06/2024 6:26 AM EDT): - [employer] [facility] - Optimize risk factor management and secondary prevention Assessment & Plan (12/02/2023 10:30 AM EST): - [employer]: SHAWN, last seen XXX - Continue current medication as prescribed. - Last echocardiogram: Assessment & Plan (06/07/2023 4:09 PM EDT): - [employer]: SHAWN, last seen 07/24/22 - Current medications: [...] & Plan (02/01/2023 5:15 PM EDT): - [employer]: SHAWN, last seen 07/24/22 - Current medications: [...] & Plan (10/30/2022 5:46 AM EST): - [employer]: SHAWN, last seen 07/24/22 - Current medications: [...] surgery 2014 Coronary artery disease invo lving paiute-shoshone coronary artery of paiute-shoshone heart without angina pectoris 08/18/2015 Essential hypertension 08/18/2015 Assessment & Plan (11/13/2024 6:38 PM EST): - Goal BP < 130/80 per ACC/AHA guideline. - Slightly elevated in clinic 09/18/24 - Continue working on life style modifications. - Previously on metoprolol succinate 100 mg which was discontinued by statistics tutor - Previously on ACEI, but discontinued lisinopril [...] succinate 100 mg which was discontinued by statistics tutor - Previously on ACEI, but discontinued lisinopril [...] 100 mg was discontinued; will confirm with statistics tutor and pharmacist. - Previously on ACEI, but [...] elevated BP for pt today at 142/79 LEGAL ADMINISTRATIVE SECRETARY states his BP at home is normal [...] s/p repair in February 2014 -Followed by [facility] vascular service, last seen by Dr. [...] s/p repair in February 2014 -Followed by [facility] vascular service, last seen by Dr. [...] s/p repair in February 2014 -Followed by [facility] vascular service, last seen by Dr. [...] s/p repair in February 2014 -Followed by [facility] vascular service, last seen by Dr. [...] s/p repair in February 2014 -Followed by [facility] vascular service, last seen by Dr. [...] s/p repair in February 2014 -Followed by [facility] vascular service, last seen by Dr. [...] A1C > 8% - Last eye exam: [facility] - Last comprehensive foot [...] DIALYSIS, WITHOUT LONG-TERM CURRENT USE OF INSULIN ([facility]) WRITTEN ON 06/07/2023 4:10 PM BY ANDREW [...] DIALYSIS, WITHOUT LONG-TERM CURRENT USE OF INSULIN ([facility]) WRITTEN ON 09/23/2023 7:36 PM BY ADRIANE COSTA MD - HgbA1C is 6.2% on 09/07/23, [...] DIALYSIS, WITHOUT LONG-TERM CURRENT USE OF INSULIN ([facility]) WRITTEN ON 06/26/2024 10:54 AM BY DIMITRI [...] A1C > 8% - Last eye exam: [facility] - Last comprehensive foot [...] AND PLAN FOR DIABETES MELLITUS, TYPE 2 ([facility]) WRITTEN ON 02/01/2023 5:12 PM BY ANDREW [...] DIALYSIS, WITHOUT LONG-TERM CURRENT USE OF INSULIN ([facility]) WRITTEN ON 2023 11:35 AM BY ADRIANE COSTA MD - HgbA1C is 6.7% on 02/01/23, [...] s/p repair in February 2014 -Followed by [facility] vascular service, last seen by Dr. [...] s/p repair in February 2014 -Followed by [facility] vascular service, last seen by Dr. [...] s/p repair in February 2014 -Followed by [facility] vascular service, last seen by Dr. [...] s/p repair in February 2014 -Followed by [facility] vascular service, last seen by Dr. [...] s/p repair in February 2014 -Followed by [facility] vascular service, last seen by Dr. [...] s/p repair in February 2014 -Followed by [facility] vascular service, last seen by Dr. [...] s/p repair in February 2014 -Followed by [facility] vascular service, last seen by Dr. [...] Encounters Date Type Department Care Team Description 12/13/2024 1:30 PM EST Office Visit [facility] [address] [place] [id number] My Hawkins ANP Gastrointestinal hemorrhage with melena (Primary Dx); Type 2 diabetes mellitus with chronic kidney disease on chronic dialysis, without long-term current use of insulin (CMS/HCC); Erosive esophagitis; Atrophic gastritis with hemorrhage; Duodenitis with bleeding; Hospital discharge follow-up; Pleural effusion on left; Aneurysm of descending thoracic 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 (CMS/HCC); Essential hypertension; Bruise; Confusion; Nonintractable episodic headache, unspecified headache type 12/13/2024 Travel 12/11/[address] [address] Adriane Costa MD Appointment Request 12/11/[address] [address] Adriane Costa MD may recall 12/04/2024 Orders Only [facility] External Provider, [facility] 11/30/[address] [address] Adriane Costa MD Durable Medical Equipment (Boost) 11/13/2024 1:15 PM EST Office Visit [address] [address] Adriane Costa MD 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 (CMS/HCC) (Primary Dx); Essential hypertension; Ischemic heart disease; End stage renal disease (CMS/HCC); Acquired hypothyroidism; Type 2 diabetes mellitus with chronic kidney disease on chronic dialysis, without long-term current use of insulin ([facility]/HCC); Encounter for immunization; Weight loss; Protein-calorie malnutrition, unspecified severity ([facility]/HCC); Dyslipidemia; Allergic rhinitis, unspecified seasonality, unspecified trigger; Subacute cough 11/13/2024 Travel 11/09/[address] [address] Aydee Hein [place] chart prep 10/19/[address] [address] Adriane Costa MD 09/18/2024 2:30 PM EST Office Visit [address] [phone] Adriane Costa MD Ischemic heart disease (Primary Dx); Essential hypertension; End stage renal disease ([facility]); Type 2 diabetes mellitus with chronic kidney disease on chronic dialysis, without long-term current use of insulin ([facility]); Gastrointestinal hemorrhage, unspecified gastrointestinal hemorrhage type; Chest pain of uncertain etiology; Aneurysm of descending thoracic 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 ([facility]/HCC); Aneurysm of descending aorta ([facility]/HCC); Diabetic nephropathy associated with type 2 diabetes mellitus ([facility]); Acquired hypothyroidism 09/18/2024 Travel 09/14/2024 Telephone [facility] [address] [place] [address] Ayede Hein [place] from Last 3 Months Immunizations [...] Mass Index 22.27 12/13/2024 1:52 PM EST Plan of Treatment Health Maintenance Due Date Last Done Comments RSV Patients and Patients Aged 60 years or older (1 - 1-dose 75+ series) 2014 Hepatitis B Vaccines (3 of 3 - 19+ 3-dose series) 12/10/2014 09/27/2014, 07/16/2014, 06/12/2014 SDOH Screening 02/20/2025 02/21/2024 Diabetes: Hemoglobin A1C 06/15/2025 025, 06/26/2024, 09/06/2023, Additional history exists Lipid Panel 09/18/2025 09/18/2024, 01/09, 01/14/2022, Additional history exists Alcohol/Substance Use Screening 11/13/2025 11/13/2024 Depression Screening 11/13/2025 11/13/2024, 11/13/19 25 Diabetes: Foot Exam 11/13/2025 11/13/2024, 09/06/2023, 09/06/2023, Additional history exists Tobacco Screening 12/13/2025 12/13/2024 Eye Exam 03/27/2026 03/27/2024 DTaP/Tdap/Td Vaccines (3 [...] dialysis, without long-term current use of insulin (CMS/[facility]) POCT GLUCOSE Routine 12/13/2024 1:54 PM EST Type 2 diabetes mellitus with chronic kidney disease on chronic dialysis, without long-term current use of insulin (CMS/HCC) CT ABDOMEN PELVIS WO CONTRAST Routine 12/04/2024 3:01 PM EST XR CHEST 1 VIEW Routine 12/04/2024 2:08 PM EST TSH W/REFLEX TO FT4 Routine 09/18/2024 3:43 PM EST Acquired hypothyroidism LIPID PANEL WITH REFLEX TO DIRECT LDL Routine 09/18/2024 3:43 PM EST Type 2 diabetes mellitus with chronic kidney disease on chronic dialysis, without long-term current use of insulin ([facility]) Dyslipidemia HM DIABETES EYE EXAM Routine 03/27/2024 from Last 3 Months or Most Recently Relevant to Health Maintenance Results * POCT HGB A1C (12/13/2024 2:02 [...] TEST ENTER/EDIT OR DERABLES Final Result * CT Abdomen Pelvis w/o Contrast (12/04/2024 3:01 PM EST) Anatomical Region Laterality Modality Body, Pelvis, Abdomen Computed T omography 12/04/2024 3:01 PM EST Narrative 12/04/2024 3:33 PM EST ? [facility] ?[address] ?[place] [address] ? CT Scan Report ? Signed ? Patient: Bi Forrest ?MR# ?? : [id number] ? : 1940 ?Acct:[id number] ? Age/Sex: 84 / M ?ADM Date: 12/04/24 ? Loc: HO.ED ? Attending Dr: ? Ordering Physician: Rhea Riley MD ?? Date of Service: 12/04/24 ?? Procedure(s): CT abdomen pelvis wo IV con ?? Accession Number(s): [id number] ? cc: Rhea Riley MD; Adriane Costa MD ? Report Number: ?? [id number]: Total DLP = ??478.00 mGy-cm ?? EXAMINATION: [...] DD/ 1501 ? TD/TT: 12/04/24 1516 ? Service Station Equipment Mechanic: ? Procedure Note Brenda Driscoll - 12/04/[address] [place] [address] [address] Scan Report Signed Patient: Ramonita ForrestysMR# : [id number] : 9Acct:[id number] Age/Sex: 84 / MADM Date: 12/04/24 Loc: HO.ED Attending Dr: Ordering Physician: Rhea Riley MD Date of Service: 12/04/24 Procedure(s): CT abdomen pelvis wo IV con Accession Number(s): [id number] cc: Rhea Riley MD; Adriane Costa MD Report Number: [id number]: Total DLP = 478.00 mGy-cm EXAMINATION: CT [...] 12/04/24 1530 DD/ 1501 TD/TT: 12/04/24 1516 Service Station Equipment Mechanic: us [facility] External Provider IMG CT PROCEDURES Final Result * XR Chest 1 View (12/04/2024 2:08 PM EST) Anatomical Region Laterality Modality Chest Radiographic Loren ging 12/04/2024 2:08 PM EST Narrative 12/04/2024 3:02 PM EST ? [facility] ?[address] ?[place], [place] [address] ?XRay Report ? Signed ? Patient: Bi Forrest ?MR# ?? : [id number] ? : 1940 ?Acct:[id number] ? Age/Sex: 84 / M ?ADM Date: 12/04/24 ? Loc: HO.ED ? Attending Dr: ? Ordering Physician: Rhea Riley MD ?? Date of Service: 12/04/24 ?? Procedure(s): XR chest 1V ?? Accession Number(s): [id number] ? cc: Rhea Riley MD; Adriane Costa MD ? EXAMINATION: ?? XR CHEST ? [...] DD/ 1408 ? TD/TT: 12/04/24 1452 ? Service Station Equipment Mechanic: ? Procedure Note Donotuseinterpreter, Image - 12/04/[address] [address] XRay Report Signed Patient: Gabbi ForrestR# : [id number] : 1940Acct:[id number] Age/Sex: 84 / MADM Date: 12/04/24 Loc: HO.ED Attending Dr: Ordering Physician: Rhea Riley MD Date of Service: 12/04/24 Procedure(s): XR chest 1V Accession Number(s): [id number] cc: Rhea Riley MD; Adriane Costa MD EXAMINATION: XR CHEST CLINICAL INFORMATION: Abdominal [...] Kailash Mcclain MD 12/04/2024 02:59 PM EST Dictated By: Kailash Lambert MD Signed By: <Electronically signed by Kailash Keys MDin OV> 12/04/24 1459 DD/ 1408 TD/TT: 12/04/24 1452 Service Station Equipment Mechanic: [facility] External Provider IMG XR PROCEDURES Final Result * TSH with Reflex to Free T4 (09/18/2024 3:43 PM EST) TSH reflex Free T4 3.85 0.32 - 4.0 uIU/mL [facility] Blood 09/18/2024 3:43 PM EST 09/18/2024 4:00 PM EST Adriane Costa MD LAB BLOOD ORDERABLES Final Resul t [facility] [address] [place] [phone] * (ABNORMAL) Lipid Panel with Reflex to Direct LDL (09/18/2024 3:43 PM EST) Triglycerides 103 <150 mg/dL [facility] Comment:Desirable Triglyceri de: less than 150 mg/dLBorderline High Triglyceride 150-199 mg/dLHigh Triglyceride: 200-499 mg/dLVery High Triglyceride: greater than or equal to 5OO mg/dL Cholesterol 157 <200 mg/dL [facility] Comment:Desirable Cholestero l: less than 200 mg/dLBorderline High Cholesterol: 200-239 mg/dLHigh Cholesterol: greater than 239 mg/dL LDL Cholesterol Calculated 97 <100 mg/dL [facility] Comment:Desirable LDL: less than 100 mg/dLNear Optimal/Above Optimal LDL: 110- 129 mg/dLBorderline High LDL: 130-159 mg/dLHigh LDL: 160-189 mg/dLVery High LDL: greater than or equal to 190 mg/dL HDL Cholesterol 40(L) >40 mg/dL [facility] Comment:Desirable HDL: great er than 40 mg/dL Note: This HDL assay may give artificially low results in patients with liver disease. Blood 09/18/2024 3:43 PM EST 09/18/2024 4:00 PM EST Adriane Costa MD LAB BLOOD ORDERABLES Final Resul t [facility] [address] [place] [address] [phone] * Diabetes Eye Exam (03/27/2024) Eye Exam Normal Normal 03/27/2024 Historical Provider MD HEALTH MAINTENANCE Final Result from Last 3 Months or Most Recently Relevant to Health Maintenance Insurance [facility] Care Teams Principal Consulting Engineer Relationship Specialty Start Date End Date Adriane Costa MD [address] [place] [id number] PCP - General Family Medicine 06/14/13
--- OUTSIDE RECORDS SUMMARY | 2024-12-13 18:05 | XMS_ITS | Encounter Summary ---
Author Organization [employer] Address [address] [place] [address] Care Team Providers Care Novelty Printing Machine Operator Name Role Phone Adriane Higuera MD Primary Care Provider [phone] Encounter Details Date Type Department Care Team (Late st Contact Info) Description 09/24/2022 Orders Only [facility] [address] [place], [place] [phone] Salome Baker LPN Social History Tobacco Use [...] on filedocumented in this encounter Care Teams Novelty Printing Machine Operator Relationship Specialty Start Date End Date Adriane Higuera MD [address] [place] [id number] PCP - General Family Medicine 06/14/13 documented as of this encounter
--- OUTSIDE RECORDS SUMMARY | 2024-12-13 18:05 | XMS_ITS | Clinical Summary ---
Author Organization [facility] Facility Address [address] [address] Care Team Providers Care Cabinet Assembler Name Role Phone Adriane Higuera MD Primary Care Provider [phone] Allergies No known active allergies Medications acetaminophen (TYLENOL) 325 MG tablet Take 1 tablet by mouth 1 (one) time each day Active allopurinol (ZYLOPRIM) 100 MG tablet Take 1 tablet by mouth 1 (one) time each day Active alprostadil ([place]) 1000 MCG pellet Comments: Patient Notes: 1 [...] Encounters Date Type Department Care Team Description 12/12/2024 Treatment [facility] [address] [address] Eleuterio Rob MD End stage renal disease; Dependence on renal dialysis 11/21/2024 Treatment [facility] [address] [address] Eleuterio Rob MD 11/19/2024 Treatment [facility] [address] [address] Eleuterio Rob MD 11/12/2024 Treatment [facility] [address] [address] Eleuterio Rob MD 11/09/2024 Treatment [facility] [address] [address] Eleuterio Rob MD 11/07/2024 Orders Only [facility] [address] [address] Eleuterio Rbo MD 10/31/2024 Treatment [facility] [address] [address] Eleuterio Rob MD 10/19/2024 Treatment [facility] [address] [address] Eleuterio Rob MD 10/12/2024 Treatment [facility] [address] [address] Eleuterio Rob MD 10/09/2024 Treatment [facility] [address] [address] Eleuterio Rob MD 10/02/2024 Treatment [facility] [address] [address] Eleuterio Rob MD 09/24/2024 Treatment [facility] [address] [address] Eleuterio Rob MD 09/17/2024 Treatment [facility] [address] [address] Eleuterio Rob MD from Last 3 Months [...] HEMATOCRIT, BLOOD Routine 09/19/2024 3:00 AM EST from Last 3 Months Results * (ABNORMAL) Hemoglobin and hematocrit (11/28/2024 3:00 AM EST) Only the most recent of9 resultswithin the time period is included. Hgb 10.1(L) 13.7 - 17.5 g/dL [facility] Hematocrit 33.2(L) 40.1 - 51.0 % [facility] Hemoglobin x 3 30.3(L) 41.1 - 52.5 g/dL [facility] 11/28/2024 3:00 AM EST 11/30/2024 12:55 PM EST us Eleuterio Rob MD LAB BLOOD ORDERABLES Final Re sult [facility] [address] [place] [address] * LIH (11/14/2024 3:00 AM EST) Only the most recent of2 resultswithin the time period is included. Lipemia Normal Normal [facility] Icterus Normal Normal [facility] Hemolysis Normal Normal [facility] 11/14/2024 3:00 AM EST 11/15/2024 3:02 PM EST Eletuerio Rob MD LAB [id number] SOLICITED RESULTS Final Result Performing Organization Address City/[facility] Co de Phone Number [facility] [address] [place] [address] * (ABNORMAL) Kt/V Natural Log, URR (11/14/2024 3:00 AM EST) Only the most recent of2 resultswithin the time period is included. Treatment [...] 1:05 PM EST Eleuterio Rob MD LAB [id number] SOLICITED RESULTS Final Result Performing Organization Address [facility] Co de Phone Number [facility] [address] [place] [address] * (ABNORMAL) Calcium Phosphorus Product, Adjusted (11/14/2024 3:00 AM EST) Only the most recent of2 resultswithin the time period is included. Albumin 3.4(L) 3.6 - 5.4 g/dL [facility] Calcium 9.4 8.6 - 10.3 mg/dL [facility] Phosphorus, Serum 4.2 2.5 - 5.0 mg/dL [facility] Ca*PO4 39.5 <55.0 mg2/dL2 [facility] Calcium, Adjusted Total 9.9 8.6 - 10.3 mg/dL [facility] CA*PO4 CORRCTD 41.6 <55.0 mg2/dL2 [facility] 11/14/2024 3:00 AM EST 11/15/2024 3:02 PM EST Eleuterio Rob MD LAB [id number] SOLICITED RESULTS Final Result Performing Organization Address [facility] de Phone Number [facility] [address] [place] [address] * (ABNORMAL) TSAT (11/14/2024 3:00 AM EST) Only the most recent of2 resultswithin the time period is included. Pathologist [facility] Iron 24(L) 65 - 175 ug/dL [facility] Transferrin 101(L) 215 - 365 mg/dL [facility] TIBC 141(L) 211 - 406 ug/dL [facility] Iron Saturation (TSat) 17(L) 22 - 52 % [facility] 11/14/2024 3:00 AM EST 11/15/2024 3:02 PM EST Eleuterio Rob MD LAB BLOOD ORDERABLES Final Re sult Performing Organization Address [facility] de Phone Number [facility] [address] [place] [address] * (ABNORMAL) CBC and Differential (11/14/2024 3:00 AM EST) Only the most recent of2 resultswithin the time period is included. DIFFERENTIAL MANUAL, 2 Not Indicated [facility] White [...] ORDERABLES Final Re sult Performing Organization Address [facility] Co de Phone Number [facility] [address] [place] [address] * ALT (11/14/2024 3:00 AM EST) Only the most recent of2 resultswithin the time period is included. ALT (SGPT) 15 10 - 49 U/L [facility] 11/14/2024 3:00 AM EST 11/15/2024 3:02 PM EST Eleuterio Rob MD LAB BLOOD ORDERABLES Final Re sult Performing Organization Address [facility] Co de Phone Number [facility] [address] [place] [address] * AST (11/14/2024 3:00 AM EST) Only the most recent of2 resultswithin the time period is included. AST (SGOT) 21 <34 U/L [facility] 11/14/2024 3:00 AM EST 11/15/2024 3:02 PM EST Eleuterio Rob MD LAB BLOOD ORDERABLES Final Re sult Performing Organization Address [facility] Co de Phone Number [facility] [address] [place] [address] * Protein, total (11/14/2024 3:00 AM EST) Only the most recent of2 resultswithin the time period is included. Total Protein 6.4 6.4 - 8.9 g/dL [facility] 11/14/2024 3:00 AM EST 11/15/2024 3:02 PM EST Eleuterio Rob MD LAB BLOOD ORDERABLES Final Re sult Performing Organization Address [facility] de Phone Number [facility] [address] [place] [address] * Alkaline phosphatase (11/14/2024 3:00 AM EST) Only the most recent of2 resultswithin the time period is included. Alkaline Phosphatase 78 46 - 116 U/L [facility] 11/14/2024 3:00 AM EST 11/15/2024 3:02 PM EST Eleuterio oRb MD LAB BLOOD ORDERABLES Final Re sult Performing Organization Address [facility] de Phone Number [facility] [address] [place] [address] * PTH, Intact (11/14/2024 3:00 AM EST) Only the most recent of2 resultswithin the time period is included. PTH, Intact 274 160 - 721 pg/mL [facility] Comment: Suggested (KDIGO) ESRD maintenance range is two to nine times the upper normal limit (80.1 pg/mL) for the laboratory. 11/14/2024 3:00 AM EST 11/15/2024 3:02 PM EST us Eleuterio Rob MD LAB BLOOD ORDERABLES Final Re sult Performing Organization Address [facility] de Phone Number [facility] [address] [place] [address] * (ABNORMAL) Magnesium (11/14/2024 3:00 AM EST) Only the most recent of2 resultswithin the time period is included. Magnesium 1.6(L) 1.9 - 2.7 mg/dL [facility] 11/14/2024 3:00 AM EST 11/15/2024 3:02 PM EST us Eleuterio Rob MD LAB BLOOD ORDERABLES Final Re sult Performing Organization Address [facility] de Phone Number [facility] [address] [place] [address] * (ABNORMAL) Lactate dehydrogenase (11/14/2024 3:00 AM EST) Only the most recent of2 resultswithin the time period is included. LDH 369(H) 120 - 246 U/L [facility] 11/14/2024 3:00 AM EST 11/15/2024 3:02 PM EST us Eleuterio Rob MD LAB BLOOD ORDERABLES Final Re sult Performing Organization Address [facility] de Phone Number [facility] [address] [place] [address] * (ABNORMAL) Glucose, random (11/14/2024 3:00 AM EST) Only the most recent of2 resultswithin the time period is included. Glucose 154(H) 74 - 109 mg/dL [facility] 11/14/2024 3:00 AM EST 11/15/2024 3:02 PM EST us Eleuterio Rob MD LAB BLOOD ORDERABLES Final Re sult Performing Organization Address [facility] de Phone Number [facility] [address] [place] [address] * (ABNORMAL) Ferritin (11/14/2024 3:00 AM EST) Only the most recent of2 resultswithin the time period is included. Ferritin 1,543(H) 22 - 322 ng/mL [facility] 11/14/2024 3:00 AM EST 11/15/2024 3:02 PM EST Eleuterio Rob MD LAB BLOOD ORDERABLES Final Re sult Performing Organization Address [facility] Co de Phone Number [facility] [address] [place] [address] * (ABNORMAL) Creatinine, serum (11/14/2024 3:00 AM EST) Only the most recent of2 resultswithin the time period is included. Creatinine 6.45(H) 0.70 - 1.30 mg/dL [facility] 11/14/2024 3:00 AM EST 11/15/2024 3:02 PM EST Eleuterio Rob MD LAB BLOOD ORDERABLES Final Re sult Performing Organization Address [facility] de Phone Number [address] [address] * (ABNORMAL) Bilirubin, total (11/14/2024 3:00 AM EST) Only the most recent of2 resultswithin the time period is included. Total Bilirubin 0.2(L) 0.3 - 1.2 mg/dL [facility] 11/14/2024 3:00 AM EST 11/15/2024 3:02 PM EST Eleuterio Rob MD LAB BLOOD ORDERABLES Final Re sult Performing Organization Address [facility] de Phone Number [facility] [address] [place] [address] * Electrolyte panel (11/14/2024 3:00 AM EST) Only the most recent of2 resultswithin the time period is included. Sodium [...] Final Re sult Performing Organization Address [facility] de Phone Number [facility] [address] [place] [address] * Confirmation Test HCV (10/17/2024 3:00 AM EST) [facility] Hep C Ab Confirmation Not needed [facility] 10/17/2024 3:00 AM EST 10/18/2024 12:41 PM EST Eleuterio Rob MD LAB BLOOD ORDERABLES Final Re sult Performing Organization Address [facility] de Phone Number [facility] [address] [place] [address] * HEPATITIS C ABS W/REFLEX RNA DETECTR (10/17/2024 3:00 AM EST) [facility] Hep C Virus Ab Non-Reacti ve Non-Reacti ve [facility] 10/17/2024 3:00 AM EST 10/18/2024 1:16 PM EST Eleuterio Rob MD LAB [id number] SOLICITED RESULTS Final Result Performing Organization Address [facility] de Phone Number [facility] [address] [place] [address] * Aluminum level (10/17/2024 3:00 AM EST) [facility] Aluminum 4 1 - 20 ug/L [facility] 10/17/2024 3:00 AM EST 10/18/2024 12:56 PM EST Eleuterio Rob MD LAB BLOOD ORDERABLES Final Re sult Performing Organization Address [facility] de Phone Number [facility] [address] [place] [address] * Vitamin D 25 Hydroxy (10/17/2024 3:00 AM EST) Vitamin D, 25-Hydroxy 44 30 - 100 ng/mL [facility] Comment: Status ? Adult ?? Pediatric Deficient: ? <20 ? <15 Insufficient: ??20-29 ?? 15-19 Sufficient: ?30-100 ??20-100 10/17/2024 3:00 AM EST 10/18/2024 1:16 PM EST Eleuterio Rob MD LAB BLOOD ORDERABLES Final Re sult Performing Organization Address [facility] de Phone Number [facility] [address] [address] * Hepatitis B Surface Antibody (10/17/2024 3:00 AM EST) Only the most recent of2 resultswithin the time period is included. Hep B Surface Antibody 13 mIU/mL [facility] Comment: Interpretation: <10: No Immunity >=10: Probable Immunity 10/17/2024 3:00 AM EST 10/18/2024 1:16 PM EST Eleuterio Rob MD LAB BLOOD ORDERABLES Final Re sult Performing Organization Address [facility] de Phone Number [facility] [address] [place] [address] * Uric Acid (10/17/2024 3:00 AM EST) Uric Acid 4.5 4.4 - 7.6 mg/dL [facility] 10/17/2024 3:00 AM EST 10/18/2024 1:16 PM EST Eleuterio Rob MD LAB BLOOD ORDERABLES Final Re sult Performing Organization Address [facility] de Phone Number [facility] [address] [place] [address] * Hemoglobin A1c (10/17/2024 3:00 AM EST) Pathologist [facility] Hemoglobin A1C 4.0 <5.7 % [facility] Comment: Methodology: Ion-exchange high-performance liquid chromatography (HPLC) HbA1c (NGSP %) ?Suggested Diagnosis >6.4% ? Diabetic 5.7-6.4% ?Pre-Diabetic <5.7% ? Non-Diabetic Diabetic Glucose Control Evaluation: Therapeutic action suggested at >8.0% ADA recommends a glycemic goal of <7.0% 10/17/2024 3:00 AM EST 10/18/2024 12:41 PM EST Eleuterio Rob MD LAB BLOOD ORDERABLES Final Re sult Performing Organization Address [facility] de Phone Number [facility] [address] [place] [address] * (ABNORMAL) Lipid panel (10/17/2024 3:00 AM EST) Pathologist [facility] Cholesterol 152 <200 mg/dL [facility] Comment: Optimal: [...] Final Re sult [facility] [address] [place] [address] from Last 3 Months Insurance [facility] ([id number]) MYA PALACIOS [id number] [facility] ([id number]) Care Teams Cabinet Assembler Relationship Specialty Start Date End Date Adriane Higuera MD [address] [place] [id number] PCP - General Family Medicine 07/17/24
--- OUTSIDE RECORDS SUMMARY | 2024-12-13 18:05 | XMS_ITS | Encounter Summary ---
Author Organization [facility] Address [address] [address] Phone Care Team Providers Care Cruise Director Name Role Phone Adriane Higuera MD Primary Care Provider [phone] Encounter Details Date Type Department Care Team (Late st Contact Info) Description 11/12/2024 Treatment [facility] [address]. [address] [address] Elder Alfaro MD [address] [address] Social History Tobacco Use Types [...] Dialysis Note - Elder Alfaro MD - 11/12/2024 12:00 AM EST Patient: Bi Davey : 1940 Note Type: Dialysis Rounds-Comp Service Date: 11/12/2024 This patient was personally seen for a complete visit as part of routine monthly dialysis care for end stage renal disease. Attending Testboard Operator: ELDER ALFARO MD Dialysis Location: [facility] [...] Uric Acid 4.5 (10/17/24) ADDITIONAL COMMENT COMMENTS: 11/12/24 doing ok 11/21/24 stable 10/09/24 stable 10/12/23 [...] stable Signed by: ELDER ALFARO MD on 12/06/2024 at 03:27:39 AM documented in this encounter Plan of Treatment Not on file documented as of this encounter Visit Diagnoses Not on filedocumented in this encounter Care Teams Cruise Director Relationship Specialty Start Date End Date Adriane Higuera MD [address] [place] [address] PCP - General Family Medicine 07/17/24 documented as of this encounter
== END 2024-12-13 14:41 | disposition home or self-care (01) ==
LOC: HO.HHCL 14:40
PROVIDERS: Visit Provider Nurse Practitioner Primary Care
DX: Z13.89 Encounter for screening for other disorder (principal)

== ENCOUNTER 2024-12-18 20:04 | Emergency (ER) | payer OTHER, SELFPAY ==
--- NOTE | ~2024-12-18 | CT_ITS ---
CLINICAL HISTORY: pain CT abdomen and pelvis without contrast Comparison: CT/CA/SR - CT ABDOMEN PELVIS WO IV CON - 12/04/24 15:01 EST Findings: No consolidation or effusion. Moderate cardiomegaly. Bibasilar atelectatic changes. Cholelithiasis. Atrophic kidneys with multiple small exophytic cyst. Measuring up to 1.6 cm on the right. Liver, adrenal glands, spleen, and pancreas within normal limits. 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 No bowel obstruction, pneumoperitoneum, or pneumatosis. Pelvic contents unremarkable. Normal appendix. Urinary bladder is mostly contracted. Possible pneumatosis of the bladder wall is seen with mild wall thickening. The bones are intact. Moderate multilevel spondylosis of the lumbar spine causing moderate to severe spinal canal narrowing at L4-L5. IMPRESSION: Urinary bladder is mostly contracted however, suspected pneumatosis of the urinary bladder wall concerning for cystitis. Correlate with urinalysis. Moderate multilevel spondylosis of the lumbar spine most notably at L4-L5 with moderate to severe spinal canal narrowing. Extensive cholelithiasis without evidence of acute cholecystitis. 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 Extensive atherosclerotic disease of the abdominal aorta and its major branches. This document has been electronically signed by: Fernando Jay MD on 12/18/2024 23:09:17
[2024-12-18 20:08] VITALS: BP 148/72; PULSE 65; O2SAT 96
[2024-12-18 20:32] VITALS: BP 156/71; PULSE 64; RESP 18; TEMP 36.8; O2SAT 98; BMI 23.3
--- NOTE | 2024-12-18 20:38 | ECG_ITS ---
Test Reason : CHEST PAIN Blood Pressure : */* mmHG Vent. Rate : 63 BPM Atrial Rate : 63 BPM P-R Int : 240 ms QRS Dur : 84 ms QT Int : 384 ms P-R-T Axes : 82 74 75 degrees QTcB Int : 392 ms Sinus rhythm with 1st degree A-V block Otherwise normal ECG When compared with ECG of 04-Dec-2024 14:26, IA interval has increased Referred By: Generic ED Physician Electronically Signed By: NADYA MENDEZ
--- NOTE | 2024-12-18 20:44 | PC.NURSE ---
conference interpreter present. pt states he's had headache, pain behind left eye x 1 week. denies fevers. black diarrhea x 3 days. upper abd pain intermittent.
--- OUTSIDE RECORDS SUMMARY | 2024-12-18 21:00 | XMS_ITS | Encounter Summary ---
Author Organization [employer] Address [address] [facility] [address] [place] [address] Care Team Providers Care Outsole Scheduler Name Role Phone Adriane Higuera MD Primary Care Provider [phone] Reason for Visit * Reason Onset Date Comments Durable Medical Equipment 11/30/2024 Boost Encounter Details Date Type Department Care Team ([facility] st Contact Info) Description 11/30/2024 Telephone [facility] [address] [place], [place] [phone] Adriane Higuera MD [address] [place], [place] [phone] Durable Medical Equipment (Boost) Social History Tobacco [...] DME for Boost signed and faxed to [facility]. Confirmation received and sent to [facility]. If patient calls to check status on above, please advise them to contact [facility] care clinician . * Telephone Encounter - Zhane Alanis [...] documented in this encounter Plan of Treatment Upcoming Encounters Date Type Department Care Team ([facility] st Contact Info) Description 01/24/2025 2:30 PM EDT Office Visit [facility] [address] [place] [address] My Hawkins, ANP [address] [place] [address] documented as of this encounter Visit Diagnoses Not on filedocumented in this encounter Additional Health Concerns Assessment Noted Time PHQ-9 Depression Total Score: 0 11/13/19 25 1:31 PM EST documented as of this encounter Care Teams Outsole Scheduler Relationship Specialty Start Date End Date Adriane Higuera MD [address] [place] [address] PCP - General Family Medicine 06/14/13 documented as of this encounter
--- OUTSIDE RECORDS SUMMARY | 2024-12-18 21:00 | XMS_ITS | Encounter Summary ---
Author Organization [facility] Address [address] [facility] [address] [place] [address] Care Team Providers Care Picking Machine Operator Name Role Phone Adriane Higuera MD Primary Care Provider [phone] Reason for Visit * Reason Comments Med Refill Encounter Details Date Type Department Care Team (Late st Contact Info) Description 02/21/2023 Refill [facility] [address] [place], [place] [phone] Alecia Flowers MD [address] [place], [place] [phone] Nausea Social History Tobacco Use Types Packs/Day [...] as of this encounter Plan of Treatment Upcoming Encounters Date Type Department Care Team (Late st Contact Info) Description 01/24/2025 2:30 PM EDT Office Visit [facility] [address] [place], [place] [phone] My Hawkins ANP [address] [place] [address] documented as of this encounter Visit Diagnoses Diagnosis Nausea Nausea alone documented in this encounter Additional Health Concerns Assessment Noted Time PHQ-9 Depression Total Score: 0 02/02/20 23 3:52 PM EDT documented as of this encounter Care Teams Picking Machine Operator Relationship Specialty Start Date End Date Adriane Higuera MD [address] [place] [address] PCP - General Family Medicine 06/14/13 documented as of this encounter
--- OUTSIDE RECORDS SUMMARY | 2024-12-18 21:00 | XMS_ITS | Encounter Summary ---
Author Organization [facility] Address [address] [facility] [address] [place] [address] Care Team Providers Care Irrigation Laborer Name Role Phone Adriane Higuera MD Primary Care Provider [phone] Reason for Referral * Consultation (Routine) - Closed Specialty Diagnoses / Procedures Referred By Contbrit t Referred To Contact Podiatry Diagnoses Type 2 diabetes mellitus with chronic kidney disease on chronic dialysis, without long-term current use of insulin (CMS/HCC) End stage renal disease (CMS/HCC) Venous insufficiency Adriane Higuera MD [address] [place] [address] Phone: tel: fax: Trevor Russell DPM [address] [address] Phone: tel: fax: Referral ID Status Reason Start Date Expiration Date V isits Requested Visits Authorized [id number] Closed Specialty Services Required 11/30/2023 11/29/2024 1 1 Encounter Details Date Type Department Care Team (Late st Contact Info) Description 11/30/2023 Orders Only [facility] [address] [place] [address] Adriane Higuera MD [address] [place], [place] Type 2 diabetes mellitus with chronic [...] Description 01/24/2025 2:30 PM EDT Office Visit [facility] [address] [place] [address] My Hawkins ANP [address] [place] [address] Scheduled Referrals Name Type Priority Associated Diagnoses Orde r Schedule Referral to Podiatry Outpatient Referral Routine Type 2 diabetes mellitus with chronic kidney disease on chronic dialysis, without long-term current use of insulin ([facility]) End stage renal disease ([facility]) Venous insufficiency Expected: 11/30/2023 (Approximate), Expires: 11/30/2024 documented as of this encounter Visit Diagnoses Diagnosis Type 2 diabetes mellitus with chronic kidney disease on chronic dialysis, without long-term current use of insulin ([facility])- Primary End stage renal disease ([facility]) End stage renal disease Venous insufficiency Unspecified venous (peripheral) insufficiency documented in this encounter Additional Health Concerns Assessment Noted Time PHQ-9 Depression Total Score: 0 02/02/20 23 3:52 PM EDT documented as of this encounter Care Teams Irrigation Laborer Relationship Specialty Start Date End Date Adriane Higuera MD [address] [place] [address] PCP - General Family Medicine 06/14/13 documented as of this encounter
--- OUTSIDE RECORDS SUMMARY | 2024-12-18 21:00 | XMS_ITS | Encounter Summary ---
Author Organization [employer] Address [address] [facility] [address] [place] [address] Care Team Providers Care Metal Spray Operator Name Role Phone Adriane Higuera MD Primary Care Provider [phone] Encounter Details Date Type Department Care Team (Late st Contact Info) Description 12/04/2024 Orders Only [facility] External Provider, [facility] Social History Tobacco Use Types Packs/Day [...] Description 01/24/2025 2:30 PM EDT Office Visit [facility] [address] [place] [address] My [place], ANP [address] [place] [address] documented as of this encounter Procedures Procedure [...] EST Narrative 12/04/2024 3:33 PM EST ? [facility] ?[address] ?[place] [address] ? CT Scan Report ? Signed ? Patient: Petar Hall,Bi ?MR# ?? : [id number] ? : 1940 ?Acct:[id number] ? Age/Sex: 84 / M ?ADM Date: 02/25/25 ? Loc: HO.ED ? Attending Dr: ? Ordering Physician: Rhea Riley MD ?? Date of Service: 12/04/24 ?? Procedure(s): CT abdomen pelvis wo IV con ?? Accession Number(s): [id number] ? cc: Rhea Riley MD; Adriane Higuera MD ? Report Number: ?? [id number]: Total DLP = ??478.00 mGy-cm ?? EXAMINATION: [...] ??Theodore Hassan MD ??12/04/2024 03:30 PM EST ? Dictated By: ?Theodore Hassan MD ? Signed By: ?<Electronically signed by Theodore Hassan MD in OV> ?12/04/24 1530 ? DD/ 1501 ? TD/TT: 12/04/24 1516 ? General Farmer: ? Procedure Note Brenda Driscoll - 12/04/[address] [place] [address] [address] Scan Report Signed Patient: Ramonita ForrestysMR# : [id number] : 1940Acct:[id number] Age/Sex: 84 / MADM Date: 12/04/24 Loc: HO.ED Attending Dr: Ordering Physician: Rhea Riley MD Date of Service: 12/04/24 Procedure(s): CT abdomen pelvis wo IV con Accession Number(s): [id number] cc: Rhea Riley MD; Adriane Higuera MD Report Number: [id number]: Total DLP = 478.00 mGy-cm EXAMINATION: CT [...] 12/04/24 1530 DD/ 1501 TD/TT: 12/04/24 1516 General Farmer: [facility] External Provider IMG CT PROCEDURES Final Result * XR Chest 1 View (12/04/2024 2:08 PM EST) Anatomical Region Laterality Modality Chest Radiographic Loren ging 12/04/2024 2:08 PM EST Narrative 12/04/2024 3:02 PM EST ? [facility] ?[address] ?[place] [address] ?XRay Report ? Signed ? Patient: Bi [place] ?MR# ?? : [id number] ? : 1940 ?Acct:[id number] ? Age/Sex: 84 / M ?ADM Date: 12/04/24 ? Loc: HO.ED ? Attending Dr: ? Ordering Physician: Rhea Riley MD ?? Date of Service: 12/04/24 ?? Procedure(s): XR chest 1V ?? Accession Number(s): [id number] ? cc: Rhea Riley MD; Adriane Higuera [...] DD/ 1408 ? TD/TT: 12/04/24 1452 ? General Farmer: ? Procedure Note Donotleilainterpreter, Image - 12/04/[address] [address] XRay Report Signed Patient: Jori [place]# : [id number] : 9Acct:[id number] Age/Sex: 84 / MADM Date: 12/04/24 Loc: HO.ED Attending Dr: Ordering Physician: Rhea Riley MD Date of Service: 12/04/24 Procedure(s): XR chest 1V Accession Number(s): [id number] cc: Rhea Riley MD; Adriane Higuera MD [...] 12/04/24 1459 DD/ 1408 TD/TT: 12/04/24 1452 General Farmer: [facility] External Provider IMG XR PROCEDURES Final Result documented in this encounter Visit Diagnoses Not on filedocumented in this encounter Additional Health Concerns Assessment Noted Time PHQ-9 Depression Total Score: 0 11/13/19 1:31 PM EST documented as of this encounter Care Teams Metal Spray Operator Relationship Specialty Start Date End Date Adriane Higuera MD [address] [place] [address] PCP - General Family Medicine 06/14/13 documented as of this encounter
--- OUTSIDE RECORDS SUMMARY | 2024-12-18 21:00 | XMS_ITS | Clinical Summary ---
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) 1 each 2 times daily. 1 kit [...] dialysis, without long-term current use of insulin ([facility]) Use as instructed 100 each 12 12/14/19 [...] LUE. - pt was given appt with holistic pulser 09/27/24 - ER precautions discussed. 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 S/p EGD with dilation 17 mm on 06/28/23. Sims's esophagus, hiatal hernia and gastric antral vascular ectasia (GAVE). - Continue PPI. Hiatal hernia 12/01/2023 Assessment & Plan (12/13/2023 3:17 PM EST): - following with [facility], last seen on 08/29/23 - s/p [...] 5:16 PM BY ANDREW LEDESMA Referred to [employer] Set Up Operator CG was given the number to call to schedule appointment Assessment & Plan (11/13/2024 6:28 AM EST): >>ASSESSMENT AND PLAN FOR SENSORINEURAL HEARING LOSS, BILATERAL WRITTEN ON 06/07/2023 4:10 PM BY ANDREW LEDESMA Referred to [employer] Set Up Operator CG was given the number to call to schedule appointment >>ASSESSMENT AND PLAN FOR HL (HEARING LOSS) WRITTEN ON 06/07/2023 4:56 PM BY ANDREW LEDESMA Patient has new hearing aids Assessment & Plan (10/29/2022 7:04 AM EST): - previously seen by technician preventative medicine and ENT - b/l sensorineural hearing loss - refer to technician preventative medicine so that he can get hearing aids History of prostate cancer 10/28/2022 Assessment & Plan (07/06/2024 6:40 AM EDT): -s/p radical prostatectomy in 1999 -last seen by urologist in 2018 -prescribed [place] 1000 mcg urethral suppository -pt has not been using frequently -last PSA < 0.04 on 02/03/22 Assessment & Plan (10/30/2022 6:04 AM EST): -s/p radical prostatectomy in 1999 -last seen by urologist in 2018 -prescribed [place] 1000 mcg urethral suppository -pt has not been using frequently -last PSA < 0.04 on 02/03/22 Dependence on renal dialysis 02/05/2021 Assessment & Plan (12/02/2023 10:22 AM EST): -Continue to follow with Nephrology. -Continue current Nephrology indications of dialysis. -Have SIGN WIRER make contact for advisement on Ensure contraindication. Assessment & Plan (02/01/2023 5:13 PM EDT): -Dialysis days MWF -Continue current Tx plan per private watchman Assessment & Plan (10/30/2022 5:56 AM EST): -Dialysis days MWF -Continue current Tx plan per private watchman End stage renal disease 02/05/2021 Assessment & [...] & Plan (11/13/2024 6:38 PM EST): - [facility] - Optimize risk factor management and secondary prevention - Rescheduled an appointment due to chest pain Assessment & Plan (09/19/2024 4:09 PM EST): - [facility] - Optimize risk factor management and secondary prevention - Rescheduled an appointment due to chest pain Assessment & Plan (07/06/2024 6:26 AM EDT): - [facility] - Optimize risk factor management and secondary prevention Assessment & Plan (12/02/2023 10:30 AM EST): - [facility] Opener: SHAWN, last seen XXX - Continue current medication as prescribed. - Last echocardiogram: Assessment & Plan (06/07/2023 4:09 PM EDT): - [facility] Opener: SHAWN, last seen 07/24/22 - Current medications: [...] & Plan (02/01/2023 5:15 PM EDT): - [facility] Opener: SHAWN, last seen 07/24/22 - Current medications: [...] & Plan (10/30/2022 5:46 AM EST): - [facility] Opener: SHAWN, last seen 07/24/22 - Current medications: [...] surgery 2014 Coronary artery disease invo lving sokaogon coronary artery of sokaogon heart without angina pectoris 08/18/2015 Essential hypertension 08/18/2015 Assessment & Plan (11/13/2024 6:38 PM EST): - Goal BP < 130/80 per ACC/AHA guideline. - Slightly elevated in clinic 09/18/24 - Continue working on life style modifications. - Previously on metoprolol succinate 100 mg which was discontinued by private watchman - Previously on ACEI, but discontinued lisinopril [...] succinate 100 mg which was discontinued by private watchman - Previously on ACEI, but discontinued lisinopril [...] 100 mg was discontinued; will confirm with private watchman and pharmacist. - Previously on ACEI, but [...] elevated BP for pt today at 142/79 SIGN WIRER states his BP at home is normal [...] s/p repair in February 2014 -Followed by [facility] vascular service, last seen by Dr. Frank [...] s/p repair in February 2014 -Followed by [facility] vascular service, last seen by Dr. Frank [...] s/p repair in February 2014 -Followed by [facility] vascular service, last seen by Dr. Frank [...] s/p repair in February 2014 -Followed by [facility] vascular service, last seen by Dr. Frank [...] s/p repair in February 2014 -Followed by [facility] vascular service, last seen by Dr. Frank [...] s/p repair in February 2014 -Followed by [facility] vascular service, last seen by Dr. Frank [...] A1C > 8% - Last eye exam: [facility] - Last comprehensive foot [...] DIALYSIS, WITHOUT LONG-TERM CURRENT USE OF INSULIN ([facility]) WRITTEN ON 06/07/2023 4:10 PM BY ANDREW [...] DIALYSIS, WITHOUT LONG-TERM CURRENT USE OF INSULIN ([facility]) WRITTEN ON 09/23/2023 7:36 PM BY ADRIANE [...] DIALYSIS, WITHOUT LONG-TERM CURRENT USE OF INSULIN ([facility]) WRITTEN ON 06/26/2024 10:54 AM BY DIMITRI [...] A1C > 8% - Last eye exam: [facility] - Last comprehensive foot [...] AND PLAN FOR DIABETES MELLITUS, TYPE 2 ([facility]) WRITTEN ON 02/01/2023 5:12 PM BY ANDREW [...] DIALYSIS, WITHOUT LONG-TERM CURRENT USE OF INSULIN ([facility]) WRITTEN ON 2023 11:35 AM BY ADRIANE [...] s/p repair in February 2014 -Followed by [facility] vascular service, last seen by Dr. Frank [...] s/p repair in February 2014 -Followed by [facility] vascular service, last seen by Dr. Frank [...] s/p repair in February 2014 -Followed by [facility] vascular service, last seen by Dr. Frank [...] s/p repair in February 2014 -Followed by [facility] vascular service, last seen by Dr. Frank [...] s/p repair in February 2014 -Followed by [facility] vascular service, last seen by Dr. Frank [...] s/p repair in February 2014 -Followed by [facility] vascular service, last seen by Dr. Frank [...] s/p repair in February 2014 -Followed by [facility] vascular service, last seen by Dr. Frank [...] Encounters Date Type Department Care Team Description 12/18/2024 Refill [facility] [address] [place], [place] [phone] Adriane Higuera MD 12/13/2024 1:30 PM EST Office Visit [address] [address] My [place] ANP Gastrointestinal hemorrhage with melena (Primary Dx); Type 2 diabetes mellitus with chronic kidney disease on chronic dialysis, without long-term current use of insulin ([facility]); Erosive esophagitis; Atrophic gastritis with hemorrhage; Duodenitis with bleeding; Hospital discharge follow-up; Pleural effusion on left; Aneurysm of descending thoracic 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 ([facility]); Essential hypertension; Bruise; Confusion; Nonintractable episodic headache, unspecified headache type 12/13/2024 Travel 12/11/[address] [address] Adriane Higuera MD Appointment Request 12/11/[address] [address] Adriane Higuera MD may recall 12/04/2024 Orders Only [facility] External Provider, [facility] 11/30/[address] [address] Adriane Higuera MD Durable Medical Equipment (Boost) 11/13/2024 1:15 PM EST Office Visit [address] [address] Adriane Higuera MD 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 ([facility]) (Primary Dx); Essential hypertension; Ischemic heart disease; End stage renal disease ([facility]); Acquired hypothyroidism; Type 2 diabetes mellitus with chronic kidney disease on chronic dialysis, without long-term current use of insulin ([facility]); Encounter for immunization; Weight loss; Protein-calorie malnutrition, unspecified severity ([facility]); Dyslipidemia; Allergic rhinitis, unspecified seasonality, unspecified trigger; Subacute cough 11/13/2024 Travel 11/09/2024 Telephone [facility] [address] [place], [place] [phone] Aydee Hein MA chart prep 10/19/2024 Refill [facility] [address] [place], [place] [phone] Adriane Higuera MD from Last 3 Months Immunizations Name [...] 12/13/2024 1:52 PM EST Plan of Treatment Upcoming Encounters Date Type Department Care Team (Late st Contact Info) Description 01/24/2025 2:30 PM EDT Office Visit [facility] [address] [place] [address] My [place] ANP [address] [place] [address] Health Maintenance Due Date Last Done Comments [...] dialysis, without long-term current use of insulin ([facility]) POCT GLUCOSE Routine 12/13/2024 1:54 PM EST Type 2 diabetes mellitus with chronic kidney disease on chronic dialysis, without long-term current use of insulin ([facility]) CT ABDOMEN PELVIS WO CONTRAST Routine 12/04/2024 3:01 PM EST XR CHEST 1 VIEW Routine 12/04/2024 2:08 PM EST LIPID PANEL WITH REFLEX TO DIRECT LDL Routine 09/18/2024 3:43 PM EST Type 2 diabetes mellitus with chronic kidney disease on chronic dialysis, without long-term current use of insulin ([facility]) Dyslipidemia HM DIABETES EYE EXAM Routine 03/27/2024 from Last 3 Months or Most Recently Relevant to Health Maintenance Results * POCT HGB A1C (12/13/2024 2:02 PM EST) Hemoglobin A1C 5.7 4.0 - 6.0 % QC Media Lot # [id number] Lot# Expiration Date ,92 Blood 12/13/2024 2:02 PM EST us My Hawkins ANP POINT OF CARE TEST ENTER/EDIT OR DERABLES Final Result * POCT Glucose (12/13/2024 1:54 PM EST) Glucose Blood, POC 162 60 - 200 mg/dL QC Media Lot # [id number] Lot# Expiration Date 82,625 Blood Capillary blood specimen / Unknown 12/13/2024 1:54 PM EST us My [facility] POINT OF CARE TEST ENTER/EDIT OR DERABLES Final Result * CT Abdomen Pelvis w/o Contrast (12/04/2024 3:01 PM EST) Anatomical Region Laterality Modality Body, Pelvis, Abdomen Computed T omography 12/04/2024 3:01 PM EST Narrative 12/04/2024 3:33 PM EST ? [facility] ?[address] ?[place] [address] ? CT Scan Report ? Signed ? Patient: Bi Forrest ?MR# ?? : [id number] ? : 1940 ?Acct:[id number] ? Age/Sex: 84 / M ?ADM Date: 12/04/24 ? Loc: HO.ED ? Attending Dr: ? Ordering Physician: Rhea Riley MD ?? Date of Service: 12/04/24 ?? Procedure(s): CT abdomen pelvis wo IV con ?? Accession Number(s): [id number] ? cc: Rhea Riley MD; Adriane Higuera MD ? Report Number: ?? [id number]: Total DLP = ??478.00 mGy-cm ?? EXAMINATION: [...] DD/ 1501 ? TD/TT: 12/04/24 1516 ? Stave Cutting Supervisor: ? Procedure Note Donmilindter, Image - 12/04/[address] [address] [address] Scan Report Signed Patient: Jori [place]# : [id number] : 9Acct:[id number] Age/Sex: 84 / MADM Date: 12/04/24 Loc: HO.ED Attending Dr: Ordering Physician: Rhea Riley MD Date of Service: 12/04/24 Procedure(s): CT abdomen pelvis wo IV con Accession Number(s): [id number] cc: Rhea Riley MD; Adriane Higuera MD Report Number: [id number]: Total DLP = 478.00 mGy-cm EXAMINATION: CT [...] 12/04/24 1530 DD/ 1501 TD/TT: 12/04/24 1516 Stave Cutting Supervisor: [facility] External Provider IMG CT PROCEDURES Final Result * XR Chest 1 View (12/04/2024 2:08 PM EST) Anatomical Region Laterality Modality Chest Radiographic Loren ging 12/04/2024 2:08 PM EST Narrative 12/04/2024 3:02 PM EST ? [facility] ?[address] ?[place] [address] ?XRay Report ? Signed ? Patient: Petar Rafael,Silfredys ?MR# ?? : [id number] ? : 1940 ?Acct:[id number] ? Age/Sex: 84 / M ?ADM Date: 12/04/24 ? Loc: HO.ED ? Attending Dr: ? Ordering Physician: Rhea Riley MD ?? Date of Service: 12/04/24 ?? Procedure(s): XR chest 1V ?? Accession Number(s): [id number] ? cc: Rhea Riley MD; Adriane Higuera [...] DD/ 1408 ? TD/TT: 12/04/24 1452 ? Stave Cutting Supervisor: ? Procedure Note Yamila, Image - 12/04/[address] [address] XRay Report Signed Patient: Jori Forrest# : [id number] : 9Acct:[id number] Age/Sex: 84 / MADM Date: 12/04/24 Loc: HO.ED Attending Dr: Ordering Physician: Rhea Riley MD Date of Service: 12/04/24 Procedure(s): XR chest 1V Accession Number(s): [id number] cc: Rhea Riley MD; Adriane Higuera MD [...] 12/04/24 1459 DD/ 1408 TD/TT: 12/04/24 1452 Stave Cutting Supervisor: [facility] External Provider IMG XR PROCEDURES Final Result * (ABNORMAL) Lipid Panel with Reflex to Direct LDL (09/18/2024 3:43 PM EST) Triglycerides 103 <150 mg/dL [facility] Comment:Desirable Triglyceri de: less than 150 mg/dLBorderline High Triglyceride 150-199 mg/dLHigh Triglyceride: 200-499 mg/dLVery High Triglyceride: greater than or equal to 5OO mg/dL Cholesterol 157 <200 mg/dL [facility] Comment:Desirable Cholestero l: less than 200 mg/dLBorderline High Cholesterol: 200-239 mg/dLHigh Cholesterol: greater than 239 mg/dL LDL Cholesterol Calculated 97 <100 mg/dL [facility] Comment:Desirable LDL: less than 100 mg/dLNear Optimal/Above Optimal LDL: 110- 129 mg/dLBorderline High LDL: 130-159 mg/dLHigh LDL: 160-189 mg/dLVery High LDL: greater than or equal to 190 mg/dL HDL Cholesterol 40(L) >40 mg/dL [facility] Comment:Desirable HDL: great er than 40 mg/dL Note: This HDL assay may give artificially low results in patients with liver disease. Blood 09/18/2024 3:43 PM EST 09/18/2024 4:00 PM EST Adriane Higuera MD LAB BLOOD ORDERABLES Final Resul t [facility] [address] [place], [place] [phone] * Diabetes Eye Exam (03/27/2024) Eye Exam Normal Normal 03/27/2024 Historical Provider HEALTH MAINTENANCE Final Result from Last 3 Months or Most Recently Relevant to Health Maintenance Insurance [facility] Care Teams Gumming Machine Operator Relationship Specialty Start Date End Date Adriane Higuera MD [address] [place] [id number] PCP - General Family Medicine 06/14/13
--- OUTSIDE RECORDS SUMMARY | 2024-12-18 21:00 | XMS_ITS | Encounter Summary ---
Author Organization [employer] Address [address] [facility] [address] [place] [address] Care Team Providers Care Compensation Director Name Role Phone Adriane Higuera MD Primary Care Provider [phone] Encounter Details Date Type Department Care Team [...] Description 01/24/2025 2:30 PM EDT Office Visit [facility] MED[facility] [address] [place] [address] My Hawkins ANP [address] [place] [address] documented as of this encounter Visit Diagnoses Not on filedocumented in this encounter Additional Health Concerns Assessment Noted Time PHQ-9 Depression Total Score: 0 11/13/19 25 1:31 PM EST documented as of this encounter Care Teams Compensation Director Relationship Specialty Start Date End Date Adriane Higuera MD [address] [place] [address] PCP - General Family Medicine 06/14/13 documented as of this encounter
--- OUTSIDE RECORDS SUMMARY | 2024-12-18 21:00 | XMS_ITS | Encounter Summary ---
Author Organization [employer] Address 75 [facility] 7t [place] [address] Care Team Providers Care Managing Consultant Name Role Phone Adriane Higuera MD Primary Care Provider [phone] Reason for Visit * Reason Onset Date Comments may recall 12/11/2024 Encounter Details Date Type Department Care Team ([facility] st Contact Info) Description 12/11/2024 Telephone [facility] [address] [place], [place] [phone] Adriane Higuera MD [address] [place], [place] [phone] may recall Social History Tobacco Use Types [...] Miscellaneous Notes * Telephone Encounter - Aydee Heni [place] - 12/11/2024 9:33 AM EST Irma [...] Description 01/24/2025 2:30 PM EDT Office Visit [facility] [address] [place] [address] My Hawkins ANP [address] [place] [address] documented as of this encounter Visit Diagnoses Not on filedocumented in this encounter Additional Health Concerns Assessment Noted Time PHQ-9 Depression Total Score: 0 11/13/19 1:31 PM EST documented as of this encounter Care Teams Managing Consultant Relationship Specialty Start Date End Date Adriane Higuera MD [address] [place] [address] PCP - General Family Medicine 06/14/13 documented as of this encounter
--- OUTSIDE RECORDS SUMMARY | 2024-12-18 21:00 | XMS_ITS | Encounter Summary ---
Author Organization [employer] Address [address] [place] [address] Care Team Providers Care Golf Course Superintendent Name Role Phone Adriane Higuera MD Primary Care Provider [phone] Reason for Visit * Reason Onset Date Comments Appointment Request 12/11/2024 Encounter Details Date Type Department Care Team ([facility] st Contact Info) Description 12/11/2024 Telephone [facility] MEDICINE [address] [place], [place] [phone] Adriane Higuera MD [address] [place], [place] [phone] Appointment Request Social History Tobacco Use Types [...] RN - 12/11/2024 10:10 AM EST No locksmith needed as 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 Spoke with pt son Gian who is caregiver regarding [facility] admission on 12/04 for abd pain and dark stools. Pt dx with anemia due to erosive esophagitis, gastritis, duodenitis. Per [facility] Notes plan at discharge is GI recommended [...] or bloody emesis. Son agrees. Call to [facility] ext [phone] to notify of HDF appt. Left VM with details. Protocol Used: Post-Hospitalization Follow-up Call (Adult) Protocol-Based Disposition: Callback or Video Visit by PCP Today Override (Final) Disposition: See in Office or Video Visit within 2 Weeks Override Reason: Organization policy Future Appointments Date Time Provider Department Center 12/13/2024 1:30 PM MICK Mckay MEDICINE [facility] Insurance verified as active per Real [...] Description 01/24/2025 2:30 PM EDT Office Visit [facility] MEDICINE [address] [place] [address] My Hawkins ANP [address] [place] [address] documented as of this encounter Visit Diagnoses Not on filedocumented in this encounter Additional Health Concerns Assessment Noted Time PHQ-9 Depression Total Score: 0 11/13/19 25 1:31 PM EST documented as of this encounter Care Teams Golf Course Superintendent Relationship Specialty Start Date End Date Adriane Higuera MD [address] [place] [address] PCP - General Family Medicine 06/14/13 documented as of this encounter
--- OUTSIDE RECORDS SUMMARY | 2024-12-18 21:00 | XMS_ITS | Encounter Summary ---
Author Organization [facility] Address [address] [place] [address] Care Team Providers Care Bellhop Name Role Phone Adriane Higuera MD Primary Care Provider [phone] Reason for Referral * Imaging (Urgent) - Authorized Specialty Diagnoses / Procedures Referred By Arminda t Referred To Contact Radiology Diagnoses Nonintractable episodic headache, unspecified headache type Procedures CT Head w/o Contrast My Hawkins ANP [address] [place] [address] Phone: tel: fax: [address] Phone: tel: fax: Referral ID Status Reason Start Date Expiration Date V isits Requested Visits Authorized [id number] Authorized 12/13/2024 12/13/2025 1 1 * Consultation (Urgent) - Authorized Specialty Diagnoses / Procedures [facility] To Contact Gastroenterology Diagnoses Gastrointestinal hemorrhage with melena Erosive esophagitis Atrophic gastritis with hemorrhage Duodenitis with bleeding My Hawkins ANP [address] [place] [address] Phone: tel: fax: [facility] Referral ID Status Reason Start Date Expiration Date Visits Requested Visits Authorized [id number] Authorized Specialty Services Required 12/13/2024 12/13/2025 1 1 Encounter Details Date Type Department Care Team (Latest Contact Info) Description 12/13/2024 1:30 PM EST Office Visit [facility] MEDICINE [address] [place] [address] My Hawkins ANP [address] [place] [address] Gastrointestinal hemorrhage with melena (Primary Dx); Type [...] your housing situation today? I have nithya zhang 02/21/[address] you li [...] documented in this encounter Progress Notes * My Hawkins, MICK - 12/13/2024 1:30 PM EST SUBJECTIVE: Bi Hall is a 84 y.o. year old male who presents for HDF . Here today w/ GROUP DYNAMICS INSTRUCTOR Nhung and son Johnny joins by phone. Interpretation by GROUP DYNAMICS INSTRUCTOR per pt preference. PMH CAD s/p CABG, ESRD on HD, s/p CVA with left hemiparesis, hypothyroid and diabetes mellitus type2, thoracic aortic aneurysm, dysphagia (esophageal stricture), GERD w/ erosive esophagitis, atrophic gastritis, erosive duodenitis L arm AV fistula Now GIB 12/04/24 On HD for ESRD Tuesday Acute Concerns: Here today for HDF after admission to [facility] 12/04/2024-12/06/2024 after presenting for evaluation of abdominal [...] Did have head MRI during admission at [facility] 08/25/24 w/ no acute finding, but chronic microangiopathy. Dx TIA. His encephalopathy resolved and cognition returned to his baseline at that time. Hospital Course and Medication Reconciliation [facility] (12/04/24-12/07/24) Patient w/ PMH including ESRD on [...] x 30 days Discontinued: none Preferred Pharmacy: [facility] - [address] [facility] [id number] Medbox: Yes Date: 12/11/24 Patient Reported History [...] symptomshowever patient has extensive cardiac history including VA, aortic aneurysm and stroke. Immunizations The VAIS database was reconciled and patient is indicated [...] of coronary artery Coronary artery disease involving white mountain coronary artery of white mountain heart without angina pectoris Hypertensive renal disease Diabetes mellitus, type 2 (CMS/HCC) Dependence on renal dialysis (CMS/HCC) Diabetic nephropathy associated with type 2 diabetes mellitus (CMS/HCC) Dyslipidemia Diverticular disease End stage renal disease (CMS/HCC) Essential hypertension Gout 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 ([facility]/HCC) History of aortic valve replacement History of [...] chronic dialysis, without long-term currentuse of insulin ([facility]) Comments: A1c is stable without meds. Rx'd [...] Aneurysm of descending thoracic 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 ([facility]) Comments: With we think CTA pending. Son [...] THREE TIMES A WEEK MID TREATMENT DIRECTED Qfihhldf-Lhwktokla-DT 1 % solution INSTILL 5 DROPS INTO [...] Description 01/24/2025 2:30 PM EDT Office Visit [facility] MEDICINE [address] [place], [place] [phone] My Hawkins ANP [address] [place] [address] Scheduled Orders Name Type Priority Associated Diagnoses Orde r Schedule B Type Natriuretic Peptide (BNP) Lab Routine Pleural effusion on left Expected: 12/13/2024, Expires: 12/13/2025 Basic Metabolic Panel Lab Routine Type 2 diabetes mellitus with chronic kidney disease on chronic dialysis, without long-term current use of insulin ([facility]) Expected: 12/13/2024 (Approximate), Expires: 12/13/2025 CBC auto [...] dialysis, without long-term current use of insulin ([facility]) POCT GLUCOSE Routine 12/13/2024 1:54 PM EST Type 2 diabetes mellitus with chronic kidney disease on chronic dialysis, without long-term current use of insulin ([facility]) documented in this encounter Results * POCT [...] Unknown 12/13/2024 1:54 PM EST us My Hawkins ANP POINT OF CARE TEST ENTER/EDIT OR DERABLES Final Result documented in this encounter Visit Diagnoses Diagnosis Gastrointestinal hemorrhage with melena- Primary Type 2 diabetes mellitus with chronic kidney disease on chronic dialysis, without long-term current use of insulin ([facility]) Erosive esophagitis Other esophagitis Atrophic gastritis with hemorrhage Duodenitis with bleeding Hospital discharge follow-up Other follow-up examination Pleural effusion on left Unspecified pleural effusion Aneurysm of descending thoracic 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 ([facility]) Essential hypertension Unspecified essential hypertension Bruise Contusion of unspecified site Confusion Unspecified psychosis Nonintractable episodic headache, unspecified headache type documented in this encounter Additional Health Concerns Assessment Noted Time PHQ-9 Depression Total Score: 0 11/13/19 25 1:31 PM EST documented as of this encounter Care Teams Bellhop Relationship Specialty Start Date End Date Adriane Higuera MD [address] [place] [address] PCP - General Family Medicine 06/14/13 documented as of this encounter
--- OUTSIDE RECORDS SUMMARY | 2024-12-18 21:01 | XMS_ITS | Encounter Summary ---
Author Organization [employer] [facility] Address [address] 7t [place] [address] Care Team Providers Care Bench Boring Machine Operator Name Role Phone Adriane Higuera MD Primary Care Provider [phone] Encounter Details Date Type Department Care Team (Late st Contact Info) Description 09/24/2022 Orders Only [facility] CHC MED & PEDS [address] [place], [place] [phone] Salome Baker LPN Social History Tobacco Use [...] Description 01/24/2025 2:30 PM EDT Office Visit [facility] MEDICINE [address] [place] [address] My Hawkins ANP [address] [place] [address] documented as of this encounter Visit Diagnoses Not on filedocumented in this encounter Care Teams Bench Boring Machine Operator Relationship Specialty Start Date End Date Adriane Higuera MD [address] [place] [address] PCP - General Family Medicine 06/14/13 documented as of this encounter
--- OUTSIDE RECORDS SUMMARY | 2024-12-18 21:01 | XMS_ITS | Encounter Summary ---
Author Organization [facility] Address [address] [address] Phone Care Team Providers Care Pricing Analyst Name Role Phone Adriane Higuera MD Primary Care Provider [phone] Encounter Details Date Type Department Care Team (Late st Contact Info) Description 11/12/2024 Treatment [facility] P. [address] [address] Elder Alfaro MD [address] [address] Social History Tobacco Use Types [...] care for end stage renal disease. Attending Channel Cementer Outsole Machine: ELDER ALFARO MD Dialysis Location: [facility] Schedule: Shift: 2 ADEQUACY ASSESSMENT Kt/V, [...] on filedocumented in this encounter Care Teams Pricing Analyst Relationship Specialty Start Date End Date Adriane Higuera MD [address] [place] [address] PCP - General Family Medicine 07/17/24 documented as of this encounter
--- OUTSIDE RECORDS SUMMARY | 2024-12-18 21:01 | XMS_ITS | Encounter Summary ---
Author Organization [facility][1] Address [address] [address] Phone Care Team Providers Care Nursing Consultant Name Role Phone Adriane Higuera MD Primary Care Provider [phone] Encounter Details Date Type Department Care Team (Late st Contact Info) Description 11/21/2024 Treatment [facility] P. [address] [phone] Elder Alfaro MD [address] [address] Social History Tobacco Use Types [...] care for end stage renal disease. Attending Adobe Layer Helper: ELDER ALFARO MD Dialysis Location: [facility] Schedule: Shift: 2 OVERVIEW Patient is [...] on filedocumented in this encounter Care Teams Nursing Consultant Relationship Specialty Start Date End Date Adriane Higuera MD [address] [place] [address] PCP - General Family Medicine 07/17/24 documented as of this encounter
--- OUTSIDE RECORDS SUMMARY | 2024-12-18 21:01 | XMS_ITS | Encounter Summary ---
Author Organization [facility] Address [address] [facility] 7t [place] [address] Care Team Providers Care Plasterer Apprentice Name Role Phone Adriane Higuera MD Primary Care Provider [phone] Encounter Details Date Type Department Care Team (Late st Contact Info) Description 10/20/2022 Orders Only [facility] MEDICINE [address] [place] [address] Abbey Person LPN Social History Tobacco Use [...] Description 01/24/2025 2:30 PM EDT Office Visit [facility] MEDICINE [address] [place] [address] My Hawkins ANP [address] [place] [address] documented as of this encounter Visit Diagnoses Not on filedocumented in this encounter Care Teams Plasterer Apprentice Relationship Specialty Start Date End Date Adriane Higuera MD [address] [place] [address] PCP - General Family Medicine 06/14/13 documented as of this encounter
--- OUTSIDE RECORDS SUMMARY | 2024-12-18 21:01 | XMS_ITS | Encounter Summary ---
Author Organization [employer] Address [address] [place] [address] Care Team Providers Care Ui Software Developer Name Role Phone Adriane Higuera MD Primary Care Provider [phone] Reason for Visit * Reason Comments Med Refill Encounter Details Date Type Department Care Team ([facility] st Contact Info) Description 12/18/2024 Refill [facility] CHC MED & PEDS [address] [place], [place] [phone] Adriane Higuera MD [address] [place], [place] [phone] Social History Tobacco Use Types Packs/Day Years [...] Description 01/24/2025 2:30 PM EDT Office Visit [facility] MEDICINE [address] [place] [address] My Hawkins ANP [address] [place] [address] documented as of this encounter Visit Diagnoses Not on filedocumented in this encounter Additional Health Concerns Assessment Noted Time PHQ-9 Depression Total Score: 0 11/13/19 1:31 PM EST documented as of this encounter Care Teams Ui Software Developer Relationship Specialty Start Date End Date Adriane Higuera MD [address] [place] [address] PCP - General Family Medicine 06/14/13 documented as of this encounter
--- OUTSIDE RECORDS SUMMARY | 2024-12-18 21:01 | XMS_ITS | Encounter Summary ---
Author Organization [facility] Address [address] [address] Phone Care Team Providers Care Warp Bleaching Vat Tender Name Role Phone Adriane Higuera MD Primary Care Provider [phone] Encounter Details Date Type Department Care Team (Late st Contact Info) Description 12/12/2024 Treatment [facility] P. [address] [address] Elder Alfaro MD [address] [address] End stage renal disease; Dependence [...] care for end stage renal disease. Attending Edging Machine Feeder: ELDER ALFARO MD Dialysis Location: [facility] Schedule: Shift: 2 ADEQUACY ASSESSMENT Kt/V, [...] dialysis documented in this encounter Care Teams Warp Bleaching Vat Tender Relationship Specialty Start Date End Date Adriane Higuera MD [address] [place] [address] PCP - General Family Medicine 07/17/24 documented as of this encounter
--- OUTSIDE RECORDS SUMMARY | 2024-12-18 21:01 | XMS_ITS | Clinical Summary ---
Author Organization [facility] Facility Address [address] [address] Care Team Providers Care Advertising Operations Manager Name Role Phone Adriane Higuera MD Primary Care Provider [phone] Allergies No known active allergies Medications acetaminophen (TYLENOL) 325 MG tablet Take 1 tablet by mouth 1 (one) time each day Active allopurinol (ZYLOPRIM) 100 MG tablet Take 1 tablet by mouth 1 (one) time each day Active alprostadil ([place]) 1000 MCG pellet Comments: Patient Notes: 1 [...] 12/12/2024 Treatment [facility] [address] [address] Eleuterio Rob MD End stage renal disease; Dependence on renal dialysis 11/21/2024 Treatment [facility] [address] [address] Eleuterio Rob MD 11/19/2024 Treatment [facility] [address] [address] Eleuterio Rob MD 11/12/2024 Treatment [facility] [address] [address] Eleuterio Rob MD 11/09/2024 Treatment [facility] [address] [address] Eleuterio Rob MD 11/07/2024 Orders Only [facility] [address] [address] Eleuterio Rob MD 10/31/2024 Treatment [facility] [address] [address] Eleuterio Rob MD 10/19/2024 Treatment [facility] [address] [address] Eleuterio Rob MD 10/12/2024 Treatment [facility] [address] [address] Eleuterio Rob MD 10/09/2024 Treatment [facility] [address] [address] Eleuterio Rob MD 10/02/2024 Treatment [facility] [address] [address] Eleuterio Rob MD 09/24/2024 Treatment [facility] [address] [address] Eleuterio Rob MD from Last 3 Months [...] Procedure Name Priority Date/Time Associated Diagnosis Comments FERRITIN Routine 12/12/2024 3:00 AM EST PROTEIN, TOTAL, SERUM Routine 12/12/2024 3:00 AM EST TRANSFERRIN SATURATION Routine 3:00 AM EST MAGNESIUM Routine 12/12/2024 3:00 AM EST LIH (HC) Routine 12/12/2024 3:00 AM EST ELECTROLYTE PANEL Routine 12/12/2024 3:0 0 AM EST GLUCOSE, RANDOM Routine 12/12/2024 3:00 AM EST CREATININE, SERUM Routine 12/12/2024 3:0 0 AM EST LACTATE DEHYDROGENASE Routine 12/12/2024 3:00 AM EST BILIRUBIN, TOTAL Routine 12/12/2024 3:00 AM EST AST Routine 12/12/2024 3:00 AM EST ALT Routine 12/12/2024 3:00 AM EST ALKALINE PHOSPHATASE Routine 12/12/2024 3:00 AM EST CALCIUM PHOSPHORUS PRODUCT, ADJUSTED (HC) Routine 12/12/2024 3:00 AM EST CBC AND DIFFERENTIAL Routine 12/12/2024 3:00 AM EST KT/V NATURAL LOG, URR (HC) Routine 12/12/2024 3:00 AM EST HEMOGLOBIN AND HEMATOCRIT, BLOOD Routine 11/28/2024 3:00 [...] EST from Last 3 Months Results * LIH (12/12/2024 3:00 AM EST) Only the most recent of3 resultswithin the time period is included. Lipemia Normal Normal [facility] Icterus Normal Normal [facility] Hemolysis Normal Normal [facility] 12/12/2024 3:00 AM EST 12/13/2024 2:41 PM EST us Eleuterio Rob MD LAB [id number] SOLICITED RESULTS Final Result [facility] [address] [place] [address] * (ABNORMAL) Kt/V Natural Log, URR (12/12/2024 3:00 AM EST) Only the most recent of3 resultswithin the time period is included. Treatment Time 198 min [facility] Pre-Weight, lb 73.1 kg [facility] Post-Weight, lb 69.8 kg [facility] Ultrafiltration Rate 14(H) <=13 mL/kg/hr [facility] Comment: Recommend achieving Ultrafiltration Rate (UFR) <=10 mL/kg/hr References: Kaitlin LOPEZ et al. Kidney Int. 2010; 79(2):250-257 BUN 39(H) 7 - 25 mg/dL [facility] BUN Post Dialysis 11 7 - 25 mg/dL [facility] UREA REDUCTION RATIO (%) 72 >=65 % [facility] Kt/V Natural Log 1.51 >=1.2 [facility] 12/12/2024 3:00 AM EST 12/13/2024 2:41 PM EST Eleuterio Rob MD LAB [id number] SOLICITED RESULTS Final Result Performing Organization Address [facility] Co de Phone Number [facility] [address] [place] [address] * (ABNORMAL) Calcium Phosphorus Product, Adjusted (12/12/2024 3:00 AM EST) Only the most recent of3 resultswithin the time period is included. Albumin 3.2(L) 3.6 - 5.4 g/dL [facility] Calcium 10.6(H) 8.6 - 10.3 mg/dL [facility] Phosphorus, Serum 3.7 2.5 - 5.0 mg/dL [facility] Ca*PO4 39.2 <55.0 mg2/dL2 [facility] Calcium, Adjusted Total 11.2(H) 8.6 - 10.3 mg/dL [facility] CA*PO4 CORRCTD 41.4 <55.0 mg2/dL2 [facility] 12/12/2024 3:00 AM EST 12/13/2024 2:41 PM EST Eleuterio Rob MD LAB [id number] SOLICITED RESULTS Final Result Performing Organization Address [facility] Co de Phone Number [facility] [address] [place] [address] * (ABNORMAL) TSAT (12/12/2024 3:00 AM EST) Only the most recent of3 resultswithin the time period is included. Iron 44(L) 65 - 175 ug/dL [facility] Transferrin 100(L) 215 - 365 mg/dL [facility] TIBC 140(L) 211 - 406 ug/dL [facility] Iron Saturation (TSat) 31 22 - 52 % [facility] 12/12/2024 3:00 AM EST 12/13/2024 2:41 PM EST Eleuterio Rob MD LAB BLOOD ORDERABLES Final Re sult [facility] [address] [place] [address] * (ABNORMAL) CBC and Differential (12/12/2024 3:00 AM EST) Only the most recent of3 resultswithin the time period is included. DIFFERENTIAL MANUAL, 2 Not Indicated [facility] White Blood Cells 4.8 4.2 - 9.1 K/uL [facility] RBC 3.21(L) 4.63 - 6.08 M/uL [facility] Hgb 8.7(L) 13.7 - 17.5 g/dL [facility] Hemoglobin x 3 26.1(L) 41.1 - 52.5 g/dL [facility] Hematocrit 29.8(L) 40.1 - 51.0 % [facility] MCV 92.8(H) 79.0 - 92.2 fL [facility] MCH 27.1 25.7 - 32.2 pg [facility] MCHC 29.2(L) 32.3 - 36.5 g/dL [facility] Platelets 105(L) 163 - 337 K/uL [facility] RDW 18.9(H) 11.6 - 14.4 % [facility] Neutrophils Relative 56.2 34.0 - 67.9 % [facility] Lymphocytes Relative 31.7 21.8 - 53.1 % [facility] Monocytes 7.5 5.3 - 12.2 % [facility] Eosinophils Relative 3.4 0.8 - 7.0 % [facility] Basophils Relative 0.8 0.2 - 1.2 % [facility] Immature Granulocytes 0.4 0.0 - 1.0 % [facility] 12/12/2024 3:00 AM EST 12/13/2024 2:44 PM EST Eleuterio Rob MD LAB BLOOD ORDERABLES Final Re sult Performing Organization Address [facility]/ZIP Co de Phone Number [facility] [address] [place] [address] * ALT (12/12/2024 3:00 AM EST) Only the most recent of3 resultswithin the time period is included. ALT (SGPT) 12 10 - 49 U/L [facility] 12/12/2024 3:00 AM EST 12/13/2024 2:41 PM EST us Eleuterio Rob MD LAB BLOOD ORDERABLES Final Re sult Performing Organization Address [facility] de Phone Number [facility] [address] [place] [address] * AST (12/12/2024 3:00 AM EST) Only the most recent of3 resultswithin the time period is included. AST (SGOT) 21 <34 U/L [facility] 12/12/2024 3:00 AM EST 12/13/2024 2:41 PM EST us Eleuterio Rob MD LAB BLOOD ORDERABLES Final Re sult Performing Organization Address [facility] de Phone Number [facility] [address] [place] [address] * (ABNORMAL) Protein, total (12/12/2024 3:00 AM EST) Only the most recent of3 resultswithin the time period is included. Total Protein 6.0(L) 6.4 - 8.9 g/dL [facility] 12/12/2024 3:00 AM EST 12/13/2024 2:41 PM EST Eleuterio Rob MD LAB BLOOD ORDERABLES Final Re sult Performing Organization Address [facility] de Phone Number [facility] [address] [place] [address] * Alkaline phosphatase (12/12/2024 3:00 AM EST) Only the most recent of3 resultswithin the time period is included. Alkaline Phosphatase 79 46 - 116 U/L [facility] 12/12/2024 3:00 AM EST 12/13/2024 2:41 PM EST Eleuterio Rob MD LAB BLOOD ORDERABLES Final Re sult Performing Organization Address [facility] de Phone Number [facility] [address] [place] [address] * (ABNORMAL) Magnesium (12/12/2024 3:00 AM EST) Only the most recent of3 resultswithin the time period is included. Magnesium 1.8(L) 1.9 - 2.7 mg/dL [facility] 12/12/2024 3:00 AM EST 12/13/2024 2:41 PM EST Eleuterio Rob MD LAB BLOOD ORDERABLES Final Re sult Performing Organization Address [facility] Phone Number [facility] [address] [place] [address] * (ABNORMAL) Lactate dehydrogenase (12/12/2024 3:00 AM EST) Only the most recent of3 resultswithin the time period is included. LDH 370(H) 120 - 246 U/L [facility] 12/12/2024 3:00 AM EST 12/13/2024 2:41 PM EST Eleuterio Rob MD LAB BLOOD ORDERABLES Final Re sult Performing Organization Address [facility] Phone Number [facility] [address] [place] [address] * (ABNORMAL) Glucose, random (12/12/2024 3:00 AM EST) Only the most recent of3 resultswithin the time period is included. Glucose 186(H) 74 - 109 mg/dL [facility] 12/12/2024 3:00 AM EST 12/13/2024 2:41 PM EST Eleuterio Rob MD LAB BLOOD ORDERABLES Final Re sult [facility] [address] [place] [address] * (ABNORMAL) Ferritin (12/12/2024 3:00 AM EST) Only the most recent of3 resultswithin the time period is included. Ferritin 2,275(H) 22 - 322 ng/mL [facility] 12/12/2024 3:00 AM EST 12/13/2024 2:41 PM EST Eleuterio Rob MD LAB BLOOD ORDERABLES Final Re sult Performing Organization Address [facility] de Phone Number [facility] [address] [place] [address] * (ABNORMAL) Creatinine, serum (12/12/2024 3:00 AM EST) Only the most recent of3 resultswithin the time period is included. Creatinine 6.75(H) 0.70 - 1.30 mg/dL [facility] 12/12/2024 3:00 AM EST 12/13/2024 2:41 PM EST Eleuterio Rob MD LAB BLOOD ORDERABLES Final Re sult Performing Organization Address [facility] de Phone Number [facility] [address] [place] [address] * (ABNORMAL) Bilirubin, total (12/12/2024 3:00 AM EST) Only the most recent of3 resultswithin the time period is included. Total Bilirubin 0.2(L) 0.3 - 1.2 mg/dL [facility] 12/12/2024 3:00 AM EST 12/13/2024 2:41 PM EST Eleuterio Rob MD LAB BLOOD ORDERABLES Final Re sult Performing Organization Address [facility] de Phone Number [facility] [address] [place] [address] * Electrolyte panel (12/12/2024 3:00 AM EST) Only the most recent of3 resultswithin the time period is included. Sodium 143 136 - 145 mEq/L [facility] Potassium 4.5 3.4 - 5.0 mEq/L [facility] Chloride 106 98 - 107 mEq/L [facility] Bicarbonate (CO2) 27 21 - 31 mEq/L [facility] Anion Gap 10 3 - 14 mEq/L [facility] 12/12/2024 3:00 AM EST 12/13/2024 2:41 PM EST Eleuterio Rob MD LAB BLOOD ORDERABLES Final Re sult Performing Organization Address [facility] Co de Phone Number [facility] [address] [place] [address] * (ABNORMAL) Hemoglobin and hematocrit (11/28/2024 3:00 AM EST) Only the most recent of9 resultswithin the time period is included. Hgb 10.1(L) 13.7 - 17.5 g/dL [facility] Hematocrit 33.2(L) 40.1 - 51.0 % [facility] Hemoglobin x 3 30.3(L) 41.1 - 52.5 g/dL [facility] 11/28/2024 3:00 AM EST 11/30/2024 12:55 PM EST Eleuterio Rob MD LAB BLOOD ORDERABLES Final Re sult Performing Organization Address [facility] Co de Phone Number [facility] [address] [place] [address] * PTH, Intact (11/14/2024 3:00 AM EST) [...] ORDERABLES Final Re sult Performing Organization Address City/[facility]/ZIP Co de Phone Number [facility] [address] [place] [address] * Confirmation Test HCV (10/17/2024 3:00 AM EST) Pathologist [facility] Hep C Ab Confirmation Not needed [facility] 10/17/2024 3:00 AM EST 10/18/2024 12:41 PM EST us Eleuterio Rob MD LAB BLOOD ORDERABLES Final Re sult Performing Organization Address [facility] Co de Phone Number [facility] [address] [place] [address] * HEPATITIS C ABS W/REFLEX RNA DETECTR (10/17/2024 3:00 AM EST) Pathologist [facility] Hep C Virus Ab Non-Reacti ve Non-Reacti ve [facility] 10/17/2024 3:00 AM EST 10/18/2024 1:16 PM EST Eleuterio Rob MD LAB [id number] SOLICITED RESULTS Final Result Performing Organization Address [facility] de Phone Number [facility] [address] [place] [address] * Aluminum level (10/17/2024 3:00 AM EST) Pathologist [facility] Aluminum 4 1 - 20 ug/L [facility] 10/17/2024 3:00 AM EST 10/18/2024 12:56 PM EST Eleuterio Rob MD LAB BLOOD ORDERABLES Final Re sult Performing Organization Address [facility] Co de Phone Number [facility] [address] [place] [address] * Vitamin D 25 Hydroxy (10/17/2024 3:00 AM EST) Pathologist [facility] Vitamin D, 25-Hydroxy 44 30 - 100 ng/mL [facility] Comment: Status ? Adult ?? Pediatric Deficient: ? <20 ? <15 Insufficient: ??20-29 ?? 15-19 Sufficient: ?30-100 ??20-100 10/17/2024 3:00 AM EST 10/18/2024 1:16 PM EST Eleuterio Rob MD LAB BLOOD ORDERABLES Final Re sult Performing Organization Address [facility] de Phone Number [facility] [address] [place] [address] * Hepatitis B Surface Antibody (10/17/2024 3:00 AM EST) Only the most recent of2 resultswithin the time period is included. Hep B Surface Antibody 13 mIU/mL [facility] Comment: Interpretation: <10: No Immunity >=10: Probable Immunity 10/17/2024 3:00 AM EST 10/18/2024 1:16 PM EST Eleuterio Rob MD LAB BLOOD ORDERABLES Final Re sult Performing Organization Address [facility] de Phone Number [facility] [address] [place] [address] * Uric Acid (10/17/2024 3:00 AM EST) Uric Acid 4.5 4.4 - 7.6 mg/dL [facility] 10/17/2024 3:00 AM EST 10/18/2024 1:16 PM EST Eleuterio Rob MD LAB BLOOD ORDERABLES Final Re sult Performing Organization Address [facility] de Phone Number [facility] [address] [place] [address] * Hemoglobin A1c (10/17/2024 3:00 AM EST) [...] Final Re sult [facility] [address] [place] [address] * (ABNORMAL) Lipid panel (10/17/2024 3:00 AM [...] Final Re sult [facility] [address] [place] [address] from Last 3 Months Insurance MCR ([id number]) [employer]A [place]AC[employer]OS [id number] [place] [address] MCR ([id number]) Care Teams Advertising Operations Manager Relationship Specialty Start Date End Date Adriane Higuera MD [address] [place] [address] PCP - General Family Medicine 07/17/24
--- OUTSIDE RECORDS SUMMARY | 2024-12-18 21:01 | XMS_ITS | Encounter Summary ---
Author Organization [facility] Address [address] [address] Phone Care Team Providers Care Bottom Loader Name Role Phone Adriane Higuera MD Primary Care Provider [phone] Encounter Details Date Type Department Care Team (Late st Contact Info) Description 11/19/2024 Treatment [facility] [address] [address] Elder Alfaro MD [address] [address] Social History Tobacco Use Types [...] care for end stage renal disease. Attending Bow Machine Operator: ELDER ALFARO MD Dialysis Location: [facility] Schedule: Shift: 2 ADEQUACY ASSESSMENT [...] on filedocumented in this encounter Care Teams Bottom Loader Relationship Specialty Start Date End Date Adriane Higuera MD [address] [place] [id number] PCP - General Family Medicine 07/17/24 documented as of this encounter
--- OUTSIDE RECORDS SUMMARY | 2024-12-18 21:01 | XMS_ITS | Encounter Summary ---
Author Organization [facility] Address [address] [facility] [address] [place] [address] Care Team Providers Care Cherry Pitter Name Role Phone Adriane Higuera MD Primary Care Provider Reason for Visit * Reason Comments Med Refill Encounter Details Date Type Department Care Team (Late st Contact Info) Description 01/27/2023 Refill [facility] [address] [place] [address] Adriane Higuera MD [address] [place] [address] Nausea Social History Tobacco Use Types Packs/Day [...] Description 01/24/2025 2:30 PM EDT Office Visit [facility] MED[facility]INE [address] [place] [address] My Hawkins ANP [address] [place] [address] documented as of this encounter Visit Diagnoses Diagnosis Nausea Nausea alone documented in this encounter Care Teams Cherry Pitter Relationship Specialty Start Date End Date Adriane Higuera MD [address] [place] [address] PCP - General Family Medicine 06/14/13 documented as of this encounter
--- NOTE | 2024-12-18 21:21 | PC.NURSE ---
Pt is a difficulty stick./ Multiple failed attempts for IV access and labs
[2024-12-18 21:30] LABS: MANUAL DIFF FLAG NO
[2024-12-18 21:40] LABS: Basophils Absolute Auto 0.1 X10*3/uL (0.0-0.2); Eosinophils Absolute Auto 0.2 X10*3/uL (0.0-0.4); Hematocrit 27.2 % (42.0-52.0); Hemoglobin 8.3 g/dl (14.0-18.0); Imm Gran Abs Auto 0.01 X10*3/uL (0.00-0.03); Imm Gran Pct Auto 0.2 % (0.0-0.4); Lymphocytes Percent Auto 39.6 % (20-40); Mean Corpuscular HGB Conc 30.5 g/dl (31.0-36.0); Mean Corpuscular Hemoglobin 27.2 pg (27.0-33.0); Mean Corpuscular Volume 89.2 fL (80.0-98.0); Monocytes Absolute Auto 0.4 X10*3/uL (0.1-1.2); Monocytes Percent Auto 7.6 % (2-11); Neutrophils Absolute Auto 2.4 x10*3/uL (2.0-8.3); Neutrophils Percent Auto 48.6 % (45-73); Platelet Count 115 X10*3/uL (160-400); Red Blood Count 3.05 X10*6/uL (4.60-5.80); Red Cell Distribution Width 19.9 % (11.0-16.0)
[2024-12-18 21:48] LABS: Alanine Aminotransferase 13 U/L (0-40); Albumin Level 3.3 g/dL (3.5-5.0); Alkaline Phosphatase 75 U/L (39-117); Anion Gap 14 (12-20); Aspartate Amino Transferase 25 U/L (5-37); Bilirubin Total 0.6 mg/dL (0.0-1.0); Blood Urea Nitrogen 43 mg/dL (9-16); Calcium 11.7 mg/dL (8.4-10.2); Carbon Dioxide 32 mmol/L (22-29); Chloride 100 mmol/L (96-108); Creatinine Clr Calc Pharmacy 9.7; Estimated Glomerular Filt Rate 10; Glucose Random 107 mg/dL (60-115); Potassium 4.4 mmol/L (3.3-5.1); Sodium 142 mmol/L (135-145); Total Protein 6.8 g/dL (6.5-8.0)
[2024-12-18 22:02] VITALS: BP 139/65; BP 139/71; BP 151/63; PULSE 59; PULSE 62; PULSE 82
[2024-12-18 22:07] LABS: Influenza A PCR NEGATIVE (Negative); Influenza B PCR NEGATIVE (Negative); Resp Syncy Virus RNA Qual PCR NEGATIVE (Negative); SARS COV2 PCR INHOUSE NEGATIVE (Negative)
[2024-12-18 23:46] LABS: Appearance Urine Clear; Color Urine Yellow; Glucose Urine UA Negative (Negative); Leukocyte Esterase Urine Moderate (2+) (Negative); Nitrite Urine Negative (Negative); PH >= 9.0 (5.0-9.0); UMIC TRIGGER UACC YES; Urine Blood Negative (Negative); Urine Ketones Negative (Negative); Urine Protein 100 (2+) mg/dL (Neg-Trace)
[2024-12-18 23:58] LABS: Bacteria Urine None Seen (None Seen); Hyaline Casts Urine 0-2 /LPF (0-2); RBC Urine 0-2 /HPF (0-2); Squamous Epithelial Cell Urine 0-2 /HPF (0-2); UACC Culture Trigger YES; WBC Urine 21-50 /HPF (0-5)
[2024-12-19] MEDS: cephALEXin 500 MG CAPSULE PO (00:20)
[2024-12-19 00:22] VITALS: BP 157/71; PULSE 72; RESP 20; TEMP 36.8; O2SAT 94
--- NOTE | 2024-12-19 00:51 | ED.ABDPAIN ---
HPI - Abdominal Pain General Chief Complaint: Abdominal Pain Stated Complaint: ABD PAIN HX 2M, N/V/D and dizzyness Time Seen by Provider: 12/18/24 22:01 Source: patient Limitations: language barrier and other (poor historian) History of Present Illness ED Provider: Blossom Leo PA-C HPI narrative: 84-year-old male with a history of end-stage renal disease on dialysis, gout, hyperlipidemia, hypothyroidism, GERD who presents with the abdominal pain. Patient developed pain today, he states it has resolved at this point. Denies nausea vomiting diarrhea. Denies constipation. Patient states he makes urine at times, no known dysuria or fever. Related Data Home Medications ?Medication ?Instructions ?Recorded ?Confirmed allopurinol 100 mg tablet 100 mg PO DAILY 12/30/20 12/04/24 aspirin 81 mg tablet,delayed 81 mg PO DAILY 12/30/20 12/04/24 release atorvastatin 80 mg tablet 80 mg PO BEDTIME 12/30/20 12/04/24 cholecalciferol (vitamin D3) 25 25 mcg PO DAILY 12/30/20 12/04/24 mcg (1,000 unit) capsule (Vitamin D3) levothyroxine 50 mcg tablet 50 mcg PO DAILY@0600 12/30/20 12/04/24 cyanocobalamin (vitamin B-12) 1,000 mcg PO DAILY 06/10/23 12/04/24 1,000 mcg tablet guaifenesin 400 mg tablet (Chest 400 mg PO Q6H PRN cough 12/04/24 12/04/24 Congestion Relief) Previous Rx's ?Medication ?Instructions ?Recorded folic acid 1 mg tablet 1 mg PO DAILY #30 tabs 01/16/21 pantoprazole 40 mg tablet,delayed 40 mg PO BID 30 days #60 tabs 12/06/24 release sucralfate 1 gram tablet (Carafate) 1 g PO QIDACHS 14 days #56 tabs 12/06/24 cephalexin 500 mg capsule 500 mg PO QID #7 caps 12/19/24 Allergies Allergy/AdvReac Type Severity Reaction Status Date / Time No Known Allergies Allergy Mild NONE Verified 12/18/24 20:36 Review of Systems Review of Systems Yes all other systems are reviewed and are negative Constitutional: Denies fatigue and Denies fever(s) Cardiovascular: Denies chest pain and Denies dyspnea Respiratory: Denies cough and Denies dyspnea Gastrointestinal: Reports abdominal pain, Denies constipation, Denies diarrhea, Denies nausea and Denies vomiting Genitourinary: Denies dysuria Endocrine: Denies fatigue [facility] Past Medical History Attestation statement: The following information was validated with the patient. Medical History Anemia ESRD (end stage renal disease) CKD (chronic kidney disease) stage 5, GFR less than 15 ml/min MSSA bacteremia Dialysis patient COVID-19 vaccine administered Renal failure COPD (chronic obstructive pulmonary disease) Thyroid disease GERD (gastroesophageal reflux disease) Elevated cholesterol PVD (peripheral vascular disease) Prostate CA HTN (hypertension) Heart attack Surgical History Hx of cataract surgery Hx of cystoscopy History of incision and drainage H/O colonoscopy Hx of aortic valve replacement Hx of CABG Social History Social History Household Members: Family Household Members Other:: son Housing: Apartment Are you a primary manager intensive care unit to a significant other at home: No Do you presently have visiting nurse or other home services: No Alcohol intake: never Comment: Surgeon informed that all counts were correct Patient Tobacco Use Status: Never used Tobacco Smoked in Last 30 Days: No e-Cigarette/Vaping Use: Never Used Second Hand Smoke Exposure: No Use of substances other than those prescribed or required for medical reasons: No Advance Directives: Yes Advance Directives on File: Yes Advance Directives Date on File: 12/05/24 service: No Current occupational status: disabled Physical Exam ED Vital Signs: Vital Signs - 24 hr 12/18/24 20:32 12/18/24 22:02 12/18/24 22:02 Temperature 98.3 F Pulse Rate 64 59 62 Respiratory Rate 18 Blood Pressure 156/71 H 151/63 H 139/65 Pulse Oximetry 98 Oxygen Delivery Method Room Air 12/18/24 22:02 12/19/24 00:22 Temperature 98.3 F Pulse Rate 82 72 Respiratory Rate 20 Blood Pressure 139/71 157/71 H Pulse Oximetry 94 Oxygen Delivery Method Room Air BMI result Body Mass Index 23.3 Const Other: Alert Orientation/consciousness: patient oriented x3 Resp Effort & Inspection: normal respiratory effort Cardio Other: Normal peripheral perfusion GI Other: Abdomen is soft, distended, nontender no guarding obese abdomen Skin Other: Warm dry no rash Neuro General: patient oriented x3, no focal motor deficits and CN's II-XI intact bilaterally Psych Other: Cooperative Medical Decision Making Medical Decision Making MDM Narrative: 84-year-old male with a history of end-stage renal disease on dialysis, gout, hyperlipidemia, hypothyroidism, GERD who presents with the abdominal pain. Patient developed pain today, he states it has resolved at this point. Denies nausea vomiting diarrhea. Denies constipation. Patient states he makes urine at times, no known dysuria or fever. Problem: Age, end-stage renal disease History: Per patient which is limited as he is a very poor history I am considering the following differential diagnoses: Acute intra abdominal pathology Plan: Patient here with vague abdominal pain that has resolved, he has no associated symptoms. We will scan his abdomen we will collect basic labs. He is asking to drink, he is already p.o. challenging I have independently reviewed the following tests: Labs: No leukocytosis, stable anemia, no electrolyte abnormality, creatinine is at baseline which is expected he is due for dialysis today, urine infected we will place on cephalexin that is renal dosed , viral panel negative CT abdomen and pelvis:IMPRESSION: Urinary bladder is mostly contracted however, suspected pneumatosis of the urinary bladder wall concerning for cystitis. Correlate with urinalysis. Moderate multilevel spondylosis of the lumbar spine most notably at L4-L5 with moderate to severe spinal canal narrowing. Extensive cholelithiasis without evidence of acute cholecystitis. 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 Extensive atherosclerotic disease of the abdominal aorta and its major branches. This document has been electronically signed by: Fernando Jay MD on 12/18/2024 23:09:17 The patient states he sometimes makes urine, we will try to collect a urine sample via straight souvenir street vendor Data 12/18/24 21:24 12/18/24 21:24 Labs: Lab Results 12/18/24 12/18/24 Range/Units 21:24 23:40 WBC 5.0 (4.8-10.8) X10*3/uL RBC 3.05 L (4.60-5.80) X10*6/uL Hgb 8.3 L (14.0-18.0) g/dl Hct 27.2 L (42.0-52.0) % MCV 89.2 (80.0-98.0) fL MCH 27.2 (27.0-33.0) pg MCHC 30.5 L (31.0-36.0) g/dl RDW 19.9 H (11.0-16.0) % Plt Count 115 L (160-400) X10*3/uL MPV Not Reportable Immature Gran % (Auto) 0.2 (0.0-0.4) % Neut % (Auto) 48.6 (45-73) % Lymph % (Auto) 39.6 (20-40) % [place] % (Auto) 7.6 (2-11) % Eos % (Auto) 3.0 (0-4) % Baso % (Auto) 1.0 (0-2) % Lymph # (Auto) 2.0 (1.2-4.9) X10*3/uL [place] # (Auto) 0.4 (0.1-1.2) X10*3/uL Eos # (Auto) 0.2 (0.0-0.4) X10*3/uL Baso # (Auto) 0.1 (0.0-0.2) X10*3/uL Abs Immat Gran (auto) 0.01 (0.00-0.03) X10*3/uL Absolute Neuts (auto) 2.4 (2.0-8.3) x10*3/uL Absolute Nucleated RBC 0.000 (0.0-0.012) X10*3/uL Nucleated RBC % (auto) 0.0 (0.0-0.2) /100WBC Sodium 142 (135-145) mmol/L Potassium 4.4 (3.3-5.1) mmol/L Chloride 100 (96-108) mmol/L Carbon Dioxide 32 H (22-29) mmol/L Anion Gap 14 (12-20) BUN 43 H (9-16) mg/dL Creatinine 5.55 H* (0.5-1.4) mg/dL Estim Creat Clear Calc 9.7 Estimated GFR 10 Random Glucose 107 (60-115) mg/dL Calcium 11.7 H D (8.4-10.2) mg/dL Total Bilirubin 0.6 (0.0-1.0) mg/dL AST 25 (5-37) U/L ALT 13 (0-40) U/L Alkaline Phosphatase 75 (39-117) U/L Total Protein 6.8 (6.5-8.0) g/dL Albumin 3.3 L (3.5-5.0) g/dL Urine Color Yellow Urine Appearance Clear Urine pH >= 9.0 (5.0-9.0) Ur Specific [place] 1.010 (1.005-1.025) Urine Protein 100 (2+) H (Neg-Trace) mg/dL Urine Glucose (UA) Negative (Negative) mg/dL Urine Ketones Negative (Negative) mg/dL Urine Blood Negative (Negative) Urine Nitrite Negative (Negative) Ur Leukocyte Esterase Moderate (2+) H (Negative) Urine RBC 0-2 (0-2) /HPF Urine WBC 21-50 H (0-5) /HPF Ur Squamous Epith Cells 0-2 (0-2) /HPF Urine Bacteria None Seen (None Seen) Hyaline Casts 0-2 (0-2) /LPF Influenza Type A (PCR) NEGATIVE (Negative) Influenza Type B (PCR) NEGATIVE (Negative) RSV RNA Qual (PCR) NEGATIVE (Negative) SARS-CoV-2 RNA (RT-PCR) NEGATIVE (Negative) Medications Administered Discontinued Medications Generic Name Dose Route Start Last Admin Trade Name Freq PRN Reason Stop Dose Admin Cephalexin HCl 500 mg 12/19/24 00:14 12/19/24 00:20 Cephalexin 500 Mg Capsule PO 12/19/24 00:15 500 mg ONCE ONE Administration Discharge Plan Discharge Clinical Impression: Urinary tract infection Patient Disposition: Home, Self-Care Instructions: Urinary Tract Infection in Men (ED) Additional Instructions: You were found to have a urinary tract infection. Take the cephalexin as directed. The rest of your labs were at your baseline, there were no additional acute findings on the CT scan. Be sure to attend dialysis today, follow up with your primary care provider next week. Prescriptions: New cephalexin 500 mg capsule 500 mg PO QID Qty: 7 0RF No Action atorvastatin 80 mg tablet 80 mg PO BEDTIME allopurinol 100 mg tablet 100 mg PO DAILY aspirin 81 mg tablet,delayed release (DR/EC) 81 mg PO DAILY levothyroxine 50 mcg tablet 50 mcg PO DAILY@0600 cholecalciferol (vitamin D3) [Vitamin D3] 25 mcg (1,000 unit) Capsule 25 mcg PO DAILY folic acid 1 mg tablet 1 mg PO DAILY Qty: 30 0RF guaifenesin [Chest Congestion Relief] 400 mg tablet 400 mg PO Q6H PRN (Reason: cough) sucralfate [Carafate] 1 gram tablet 1 g PO QIDACHS 14 Days Qty: 56 0RF pantoprazole 40 mg tablet,delayed release (DR/EC) 40 mg PO BID 30 Days Qty: 60 0RF cyanocobalamin (vitamin B-12) 1,000 mcg tablet 1,000 mcg PO DAILY Print Language: German
[2024-12-19 01:07] VITALS: BP 157/71; PULSE 72; RESP 20; TEMP 36.8; O2SAT 94
== END 2024-12-19 01:27 | disposition home or self-care (01) ==
PROVIDERS: Physician Assistant Medical; Emergency Provider Emergency Medicine; PCP Family Medicine
DX: N39.0 Urinary tract infection, site not specified (principal); R10.2 Pelvic and perineal pain; R11.2 Nausea with vomiting, unspecified; R42 Dizziness and giddiness; R07.89 Other chest pain; I44.0 Atrioventricular block, first degree; Z79.899 Other long term (current) drug therapy; Z03.818 Encounter for observation for suspected exposure to other biological agents ruled out
CPT/HCPCS: 0241U; 74176; 80053; 81001; 85025; 87086; 93005; 99284; 99285

== ENCOUNTER → 2024-12-18 20:38 | Outpatient (BNV) | payer OTHER, SELFPAY | PROVIDERS: Emergency Provider Emergency Medicine; PCP Family Medicine; Visit Provider Internal Medicine | DX: R07.9 Chest pain, unspecified (principal); I44.0 Atrioventricular block, first degree | CPT/HCPCS: 93010 ==

== ENCOUNTER → 2024-12-18 22:02 | Outpatient (BNV) | payer OTHER, SELFPAY | PROVIDERS: Emergency Provider Emergency Medicine; PCP Family Medicine; Visit Provider Student in an Organized Health Care Education/Training Program | DX: R10.9 Unspecified abdominal pain (principal); R11.2 Nausea with vomiting, unspecified; R19.7 Diarrhea, unspecified | CPT/HCPCS: 74176 ==

== ENCOUNTER 2024-12-26 13:04 | Inpatient (IN) | payer OTHER, SELFPAY ==
[2024-12-26] VITALS (16 sets, daily range): BP systolic 83–128; BP diastolic 41–58; PULSE 64–84; RESP 14–20; TEMP 36.4–36.8; O2SAT 95–100; BMI 24.9
--- NOTE | ~2024-12-26 | CT_ITS ---
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 MIP reconstructions. Comparison: Chest x-ray from earlier today. Findings: Patient's chest x-ray from earlier today demonstrated increasing fullness in the region of the aortic arch concerning for aneurysmal dilation. This is aneurysmal dilatation of the thoracic aorta is confirmed on CT scan. Aneurysmal dilatation begins just distal to the takeoff of the left common carotid artery. Largest transverse measurement is 6.3 cm. Subtle short-segment dissection is identified at the beginning of the aneurysms. There is dense vascular calcification. Aneurysmal dilatation extends to the far caudad field of view involving the abdominal aorta measuring up to 4.4 cm in transverse measurement. Aortic valve prostheses is in place. Vascular stent is seen within the left subcutaneous subclavian left brachiocephalic vein. This is stent appears to be occluded. Patient has undergone prior coronary artery bypass grafting. There is dense calcification of the patient's galena coronary arteries. Borderline arias chamber cardiac enlargement. Small bilateral pleural effusions. Dense consolidation within the left upper lobe and lingula with less pronounced consolidation within the remainder of the lungs. No pneumothorax. Subcentimeter mediastinal and hilar lymph nodes. No free fluid or free air within the upper abdomen. Densely calcified gallstones within the upper abdomen with pericholecystic induration. No acute fracture. Impression: 1. 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 2. Postprocedural changes as above. 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 3. Multifocal areas of consolidation within the lungs most characteristic of multifocal pneumonia. 4. Cholelithiasis with potential findings of cholecystitis. Clinical correlation advised. This document has been electronically signed by: Niels Tinoco MD on 12/30/2024 12:37:19
--- NOTE | ~2024-12-26 | XR_ITS ---
CLINICAL HISTORY: cough 1 view chest x-ray Comparison: CR/SR - XR CHEST 1V - 12/26/24 14:39 EDT Findings: Sternotomy wires are evident. Increasing marked fullness of the aortic arch measuring 7 cm in transverse measurement. This is a vascular stent likely arising within the aortic arch towards the left subclavian region. There is increasing hazy density in the left mid and upper lung. Small left pleural effusion. Mild central interstitial prominence in the right lung with right pleural effusion. Cardiac silhouette is moderately enlarged. IMPRESSION: 1. Increasing fullness of the aortic arch concerning for aneurysmal dilatation. CT angiogram of the chest suggested for further evaluation. 2. Worsening bilateral infiltrates and/or edema with small bilateral pleural effusions. This document has been electronically signed by: Niels Tinoco MD on 12/30/2024 10:24:23
--- NOTE | ~2024-12-26 | FL_ITS ---
EXAMINATION: XR FLUOROSCOPY UPPER GI SERIES CLINICAL INFORMATION: INDICATION given by the ordering clinician: Anemia. INDICATION obtained by the performing radiologist: Upper GI bleed. 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 COMPARISON: Barium swallow 03/01/2023. Correlation made with CT abdomen and pelvis 12/18/2024. TECHNIQUE: Fluoroscopic air contrast upper GI examination was performed utilizing standard techniques with thin and thick barium and effervescent granules. Numerous spot images were obtained. Several fluoroscopic image hold cine sequences were also obtained. FINDINGS: Study is significantly limited, as the patient is unable to tolerate any prone or supine positioning, and cannot stand for the examination. This severely limits the sensitivity the study and essentially limits the examination to evaluation of the esophagus and stomach. Thread Checker examination demonstrates cardiomegaly with aortic valve replacement and sternal wires in place. UPPER GI SERIES: Lateral cine images of the oropharynx and hypopharynx demonstrate normal swallow mechanism with normal epiglottic inversion and soft palate elevation. No laryngeal penetration, glottic or subglottic aspiration identified. No nasopharyngeal reflux present. Hypopharyngeal structures appear normal without evidence of mass or diverticulum. There was mild cricopharyngeal achalasia. Dual and single contrast images of the esophagus demonstrate a patulous caliber, and somewhat tortuous course. Extensively disordered esophageal peristalsis was present. Feline contraction pattern noted. Grossly no mucosal abnormality, stricture, or mass allowing for exam limitations. Cannot evaluate for gastroesophageal reflux due to inherent study limitations. None grossly seen during the exam. The GE junction appears patulous. There is a small to moderate-sized type I hiatus hernia. Dual contrast and single contrast images of the stomach were very limited due to inherent study limitations. Poor coating of the lesser curvature and superior wall, as well as the majority of the fundus. There appears to be gastric rugal fold thickening somewhat diffusely suggesting gastritis. Single and air-contrast images of the duodenal bulb demonstrate a rounded filling defect, in keeping with the known duodenal mass. The more distal segments of the duodenum are not well evaluated due to exam limitations. Contrast did pass into the second segment without evidence of gastric outlet obstruction. FLUOROSCOPY TIME: 1 minute, 55 seconds Number of Spot Images:3 Number of cines obtained: 3 DOSE AREA PRODUCT: 1715 uGy-m2 (microgray-meter squared) FL/FL upper GI series IMPRESSION: 1. Markedly limited examination. The patient was unable to stand, lie prone or supine, nor position themselves appropriately for the examination. 2. Patulous esophagus with markedly disordered esophageal motility. Granular type mucosal pattern in the distal one half of the esophagus suggesting esophagitis. 3. Feline esophageal contraction pattern noted in keeping with chronic reflux. Patulous GE junction. Small to moderate-sized type I hiatus hernia. 4. Limited evaluation of the stomach and duodenum. There is a suggestion of diffuse gastric rugal fold thickening, suggesting gastritis. 5. Filling defect in the duodenal bulb, in keeping with the known duodenal mass. No significant gastric outlet obstruction to contrast outflow. Electronically signed by: Mehrdad Solorzano MD 01/02/2025 12:42 PM EDT
--- NOTE | ~2024-12-26 | XR_ITS ---
EXAMINATION: XR CHEST 1 VIEW HISTORY: ESRD patient weakness, low BP COMPARISON: Comparison is made with the prior examination dated 12/04/2024. FINDINGS: A single AP portable view of the chest performed at 2:40 PM is submitted. There is airspace opacity in the left upper lung zone, consistent with pneumonia. The right lung is clear. There is no pleural effusion, pneumothorax, or pulmonary vascular congestion. The heart is normal in size. Again seen is aneurysmal dilatation of the thoracic aorta. A stent is seen overlying the aorta. The patient is status post median sternotomy, valve replacement, and CABG. The bones are intact. XR/XR chest 1V IMPRESSION: Left upper lobe pneumonia. Follow-up is recommended to document resolution. Electronically signed by: Theodore Hassan MD 12/26/2024 02:51 PM EDT
--- NOTE | 2024-12-26 13:48 | PC.NURSE ---
BP manually 83/50, MD Ordaz made aware.
--- NOTE | 2024-12-26 13:53 | ECG_ITS ---
Test Reason : WEAKNESS Blood Pressure : */* mmHG Vent. Rate : 68 BPM Atrial Rate : 68 BPM P-R Int : 210 ms QRS Dur : 86 ms QT Int : 394 ms P-R-T Axes : 63 63 73 degrees QTcB Int : 418 ms Sinus rhythm with 1st degree A-V block Otherwise normal ECG When compared with ECG of 18-Dec-2024 20:39, No significant change was found Referred By: Angie Ordaz Electronically Signed By: Alonzo Quintana
--- NOTE | 2024-12-26 13:58 | ED_ITS ---
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 He took his medications and went to HD. He was 2 hours in when they state his BP was low but unclear how low. EMS did not find him to be hypotensive. He states he has no fevers, cough, abdominal pain or chest pain. He states he always has issues with his stomach. He denies black or bloody stools. Last time he presented this way very similar ended up with pneumonia and sepsis requiring ICU stay. Seen here dx with UTI neg culture 12/19 MD Complaint: generalized weakness Duration: constant Location: generalized Migration: none Severity: mild Relieving factors: rest Exacerbating factors: other (felt weak and n/v this AM) Context: history of similar Associated symptoms: nausea/vomiting Related Data Home Medications ?Medication ?Instructions ?Recorded ?Confirmed allopurinol 100 mg tablet 100 mg PO DAILY 12/30/20 12/04/24 aspirin 81 mg tablet,delayed 81 mg PO DAILY 12/30/20 12/04/24 release atorvastatin 80 mg tablet 80 mg PO BEDTIME 12/30/20 12/04/24 cholecalciferol (vitamin D3) 25 25 mcg PO DAILY 12/30/20 12/04/24 mcg (1,000 unit) capsule (Vitamin D3) levothyroxine 50 mcg tablet 50 mcg PO DAILY@0600 12/30/20 12/04/24 cyanocobalamin (vitamin B-12) 1,000 mcg PO DAILY 06/10/23 12/04/24 1,000 mcg tablet guaifenesin 400 mg tablet (Chest 400 mg PO Q6H PRN cough 12/04/24 12/04/24 Congestion Relief) Previous Rx's ?Medication ?Instructions ?Recorded folic acid 1 mg tablet 1 mg PO DAILY #30 tabs 01/16/21 pantoprazole 40 mg tablet,delayed 40 mg PO BID 30 days #60 tabs 12/06/24 release sucralfate 1 gram tablet (Carafate) 1 g PO QIDACHS 14 days #56 tabs 12/06/24 cephalexin 500 mg capsule 500 mg PO QID #7 caps 12/19/24 Allergies Allergy/AdvReac Type Severity Reaction Status Date / Time No Known Allergies Allergy Mild NONE Verified 12/26/24 13:59 Review of Systems 2 Review of Systems: Constitutional : No Weight loss, No Fever, No Chills ENT/Mouth : No sore throat, No Rhinorrhea Eyes: No Swelling, No Redness Cardiovascular : No Chest Pain, No SOB, NoEdema Respiratory : No Cough, No Sputum, No Wheezing Gastrointestinal : Positive Nausea, Positive Vomiting, no Diarrhea, no abdominal Pain, No Hematochezia, No Melena Genitourinary : No Dysuria, No Urinary Frequency, No Hematuria, No Urgency Musculoskeletal : No joint pain, No Myalgias, No Joint Swelling Skin : No Skin Lesions, No rash Neuro : pos Weakness, No Numbness, No Dizziness, No Headache All other systems reviewed and are negative. [facility] Past Medical History Attestation statement: The following information was validated with the patient. Source: old records reviewed Medical History Anemia ESRD (end stage renal disease) CKD (chronic kidney disease) stage 5, GFR less than 15 ml/min MSSA bacteremia Dialysis patient COVID-19 vaccine administered Renal failure COPD (chronic obstructive pulmonary disease) Thyroid disease GERD (gastroesophageal reflux disease) Elevated cholesterol PVD (peripheral vascular disease) Prostate CA HTN (hypertension) Heart attack Surgical History Hx of cataract surgery Hx of cystoscopy History of incision and drainage H/O colonoscopy Hx of aortic valve replacement Hx of CABG Social History Social History Household Members: Family Household Members Other:: son Housing: Apartment Are you a primary tree care foreman to a significant other at home: No Do you presently have visiting nurse or other home services: No Alcohol intake: never Comment: Surgeon informed that all counts were correct Patient Tobacco Use Status: Never used Tobacco Smoked in Last 30 Days: No e-Cigarette/Vaping Use: Never Used Second Hand Smoke Exposure: No Use of substances other than those prescribed or required for medical reasons: No Advance Directives: Yes Advance Directives on File: Yes Advance Directives Date on File: 12/05/24 service: No Current occupational status: disabled Physical Exam 2 Vital Signs: Vital Signs: Last Vital Signs Temp 98.0 F 12/26/24 17:02 Pulse 72 12/26/24 17:02 Resp 16 12/26/24 17:02 BP 122/41 L 12/26/24 17:02 Pulse Ox 100 12/26/24 17:02 O2 Del Method Room Air 12/26/24 17:02 BMI result Body Mass Index 24.9 Appearance: Alert. Oriented X2 baseline from last visit. No acute distress. Eyes: Pupils equal, round and reactive to light. ENT: Pharynx normal. Neck: Normal inspection. Neck supple. CVS: Normal heart rate and rhythm. Pulses normal. Respiratory: No respiratory distress. Breath sounds normal. Abdomen: Soft and non-tender. : I see infection or mass on his scrotal sac Rectal: light brown stool Skin: Skin warm and dry. pale skin color. Normal skin turgor. Extremities: trace pitting symmetric lower extremity edema. Neuro: Oriented X 2. No motor deficit. No sensory deficit. CN2-12 intact Course Course Course Narrative: suspect hypotension due to anemia and not infection or severe sepsis 230pm CXR positive for IMER pneumoniam infection suspected 258pm. sepsis alert called RN aware will add on 250ns, start cefepime and azithromycin - can be admitted for further workup BP improving at this time Medications Administered Discontinued Medications Generic Name Dose Route Start Last Admin Trade Name Freq PRN Reason Stop Dose Admin Sodium Chloride 1,000 mls @ 999 mls/hr 12/26/24 14:56 12/26/24 16:00 Ns IV 12/26/24 15:56 Infused .Q1H1M ONE Infusion Cefepime HCl 1 gm/ Sodium 50 mls @ 100 mls/hr 12/26/24 14:56 12/26/24 15:40 Chloride IV 12/26/24 15:25 Infused ONCE ONE Infusion Azithromycin 500 mg/ Sodium 250 mls @ 125 mls/hr 12/26/24 14:56 12/26/24 15:38 Chloride IV 12/26/24 16:55 125 mls/hr ONCE ONE Administration Midodrine 5 mg 12/26/24 13:57 12/26/24 14:39 Midodrine Hcl 5 Mg Tablet PO 12/26/24 13:58 5 mg ONCE ONE Administration Pantoprazole Sodium 40 mg 12/26/24 14:30 12/26/24 14:59 Pantoprazole Sodium 40 Mg/10 Ml Vial IVPUSH 12/26/24 14:31 40 mg ONCE ONE Administration Medical Decision Making Medical Decision Making [facility] Narrative: 84 yo male with PMH of ESRD on HD MWF, HTN, GERD, COPD, HLD, PVD, hypothyroidism, CVA L sided deficits, gout, melena with + EGD showing erosive esophagitis he states he doesn't feel well he denies GIB symptoms and also does not report this at this time given hx will obtain labs, EKG, CXR, occult stool, start on PPI given vomiting. Patient currently has no complaints. He is not on thinners takes a baby aspirin Differential Diagnosis Differential Diagnoses: The differential diagnosis associated with the presentation includes anemia, post equilibrium syndrome Admission/Observation Consideration of admission/observation: Escalation of care including admission/observation considered admit for further workup and management Consult Healthcare Provider Management of the patient was discussed with: Hospitalist (will admit) Lab Data [facility] Lab Attestation statement: I reviewed the patient's lab results. 2 units PRBC ordered no signs of GIB at this time 12/26/24 14:10 12/26/24 14:10 Labs: Lab Results 12/26/24 12/26/24 12/26/24 Range/Units 14:10 14:12 14:29 WBC 8.7 (4.8-10.8) X10*3/uL RBC 2.06 L D (4.60-5.80) X10*6/uL Hgb 5.9 L* D (14.0-18.0) g/dl Hct 18.5 L* D (42.0-52.0) % MCV 89.8 (80.0-98.0) fL MCH 28.6 (27.0-33.0) pg MCHC 31.9 (31.0-36.0) g/dl RDW 21.0 H (11.0-16.0) % Plt Count 136 L (160-400) X10*3/uL MPV 11.7 (9.4-12.4) fL Immature Gran % (Auto) 0.2 (0.0-0.4) % Neut % (Auto) 64.1 (45-73) % Lymph % (Auto) 27.1 (20-40) % [place] % (Auto) 7.5 (2-11) % Eos % (Auto) 0.6 (0-4) % Baso % (Auto) 0.5 (0-2) % Lymph # (Auto) 2.4 (1.2-4.9) X10*3/uL [place] # (Auto) 0.7 (0.1-1.2) X10*3/uL Eos # (Auto) 0.1 (0.0-0.4) X10*3/uL Baso # (Auto) 0.0 (0.0-0.2) X10*3/uL Abs Immat Gran (auto) 0.02 (0.00-0.03) X10*3/uL Absolute Neuts (auto) 5.6 (2.0-8.3) x10*3/uL Absolute Nucleated RBC 0.000 (0.0-0.012) X10*3/uL Nucleated RBC % (auto) 0.0 (0.0-0.2) /100WBC Sodium 139 (135-145) mmol/L Potassium 3.4 D (3.3-5.1) mmol/L Chloride 98 (96-108) mmol/L Carbon Dioxide 33 H (22-29) mmol/L Anion Gap 11 L (12-20) BUN 34 H (9-16) mg/dL Creatinine 3.42 H (0.5-1.4) mg/dL Estim Creat Clear Calc 15.7 Estimated GFR 17 Random Glucose 98 (60-115) mg/dL Lactic Acid 1.6 (0.5-2.0) mmol/L Calcium 9.2 D (8.4-10.2) mg/dL Magnesium 1.6 (1.6-2.6) mg/dL Total Bilirubin 0.5 (0.0-1.0) mg/dL Direct Bilirubin 0.1 (0.0-0.5) mg/dL AST 24 (5-37) U/L ALT 8 (0-40) U/L Alkaline Phosphatase 57 (39-117) U/L Troponin I High Sens 31.8 (<3.5-35.0) ng/L C-Reactive Protein 2.58 H (< or = 0.50) mg/dL B-Natriuretic Peptide 249 H (<100) pg/mL Total Protein 5.8 L (6.5-8.0) g/dL Albumin 2.8 L (3.5-5.0) g/dL Lipase 41 (8-78) U/L Stool Occult Blood NEGATIVE (NEGATIVE) Influenza Type A (PCR) NEGATIVE (Negative) Influenza Type B (PCR) NEGATIVE (Negative) RSV RNA Qual (PCR) NEGATIVE (Negative) SARS-CoV-2 RNA (RT-PCR) NEGATIVE (Negative) Blood Type A Positive Antibody Screen NEGATIVE Crossmatch See Detail Independent Interpretation I performed an independent interpretation of an: EKG and Plain X-Ray (IMER pneumonia) Interpretation: Rate: Rhythm: [place]: Normal P waves. Normal LUZ. Normal QRS complex. ST T wave : qTC: prior studies: The study has been interpreted contemporaneously by me. . Radiology Impression Discussion of test interpretation with radiology: I have reviewed the radiologist's reading. Independent Historian Clinical information obtained from an independent historian. History obtained from or confirmed by: EMS External Record Review External record reviewed: Inpatient record and Outpatient record Critical Care Time Critical Care Time Critical Care Time: Yes Total Critical Care Time: 60 Attestation: family discussion, blood transfusion, sepsis protocol I attest to this time spent taking care of the patient Discharge Plan Discharge Clinical Impression: Acute on chronic anemia Left upper lobe pneumonia Qualifiers: Pneumonia type: due to unspecified organism Qualified Code(s): J18.9 - Pneumonia, unspecified organism Patient Disposition: Admitted As Inpatient Print Language: Chinese Sepsis Bolus Exclusion Sepsis Bolus Exclusion CHF/Renal Failure This patient met severe sepsis criteria due to the following condition(s):: H ypotension In my clinical judgement the administration of 30 ml/kg of crystalloid would be detrimental to this patient due to the patient's following conditions:: Stage III or IV Chronic Kidney Disease (GFR<30) and Concern for fluid overload Replace the 30 mls/kg with (Zero amount not acceptable and all fluids for severe sepsis must be given at GREATER than 125 mls/hr) Crystalloids amount given in mls: (rate must be at least 150cc/hr): 250 Colloids amount given in mls:: 0
[2024-12-26 14:16] LABS: MANUAL DIFF FLAG NO
[2024-12-26 14:19] LABS: Basophils Percent Auto 0.5 % (0-2); Eosinophils Absolute Auto 0.1 X10*3/uL (0.0-0.4); Eosinophils Percent Auto 0.6 % (0-4); Imm Gran Abs Auto 0.02 X10*3/uL (0.00-0.03); Imm Gran Pct Auto 0.2 % (0.0-0.4); Lymphocytes Absolute Auto 2.4 X10*3/uL (1.2-4.9); Lymphocytes Percent Auto 27.1 % (20-40); Mean Corpuscular HGB Conc 31.9 g/dl (31.0-36.0); Mean Corpuscular Hemoglobin 28.6 pg (27.0-33.0); Mean Corpuscular Volume 89.8 fL (80.0-98.0); Mean Platelet Volume 11.7 fL (9.4-12.4); Monocytes Absolute Auto 0.7 X10*3/uL (0.1-1.2); Monocytes Percent Auto 7.5 % (2-11); Neutrophils Absolute Auto 5.6 x10*3/uL (2.0-8.3); Neutrophils Percent Auto 64.1 % (45-73); Platelet Count 136 X10*3/uL (160-400); Red Blood Count 2.06 X10*6/uL (4.60-5.80); White Blood Count 8.7 X10*3/uL (4.8-10.8)
[2024-12-26 14:30] LABS: Hemoglobin 5.9 g/dl (14.0-18.0)
[2024-12-26 14:31] LABS: Hematocrit 18.5 % (42.0-52.0)
[2024-12-26 14:36] LABS: Alanine Aminotransferase 8 U/L (0-40); Albumin Level 2.8 g/dL (3.5-5.0); Alkaline Phosphatase 57 U/L (39-117); Anion Gap 11 (12-20); Aspartate Amino Transferase 24 U/L (5-37); Bilirubin Direct 0.1 mg/dL (0.0-0.5); Bilirubin Total 0.5 mg/dL (0.0-1.0); Blood Urea Nitrogen 34 mg/dL (9-16); Calcium 9.2 mg/dL (8.4-10.2); Carbon Dioxide 33 mmol/L (22-29); Chloride 98 mmol/L (96-108); Creatinine Clr Calc Pharmacy 15.7; Estimated Glomerular Filt Rate 17; Glucose Random 98 mg/dL (60-115); Lipase 41 U/L (8-78); Magnesium 1.6 mg/dL (1.6-2.6); Potassium 3.4 mmol/L (3.3-5.1); Sodium 139 mmol/L (135-145); Total Protein 5.8 g/dL (6.5-8.0)
[2024-12-26 14:38] LABS: OBS Int Ctl Valid YES; OBS1 NEGATIVE (NEGATIVE)
[2024-12-26 14:39] LABS: Lactic Acid 1.6 mmol/L (0.5-2.0)
[2024-12-26 14:39] LABS: B Type Natriuretic Peptide 249 pg/mL (<100)
[2024-12-26] MEDS: Midodrine HCl 5 MG TABLET PO (14:39)
[2024-12-26 14:43] LABS: Troponin-I High Sensitivity 31.8 ng/L (<3.5-35.0)
[2024-12-26 14:57] LABS: Influenza A PCR NEGATIVE (Negative); Influenza B PCR NEGATIVE (Negative); Resp Syncy Virus RNA Qual PCR NEGATIVE (Negative); SARS COV2 PCR INHOUSE NEGATIVE (Negative)
[2024-12-26] MEDS: Pantoprazole Sodium 40 MG/10 ML VIAL IVPUSH (14:59)
[2024-12-26] MEDS: cefEPime HCl 1 GM in 0.9 % Sodium Chloride 50 ML IV (15:10)
[2024-12-26] MEDS: 0.9 % Sodium Chloride 1,000 ML 999 ML IV (15:10)
[2024-12-26 15:28] LABS: C Reactive Protein 2.58 mg/dL (< or = 0.50)
[2024-12-26] MEDS: Azithromycin 500 MG in 0.9 % Sodium Chloride 250 ML 125 MG IV (15:38)
--- NOTE | 2024-12-26 16:34 | PC.NURSE ---
Patient awake and alert to person, place, and day- not month or year, skin pwd, resp even and non labored. patient speaking in full clear sentences. denies pain. IV antibiotics and blood transfusion infusing per orders, patient tolerating well. NSR via tele. left arm AV fistula w/ positive bruit and thrill. 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 patient aware of plan of care
--- NOTE | 2024-12-26 16:55 | PC.NURSE ---
Chantelle PULP TESTER phone # [phone]
--- NOTE | 2024-12-26 18:11 | P.HPHOSP_ITS ---
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 The pt states he felt overall unwell this morning with a few episodes of nausea and vomiting. Reports some flecks of blood in vomitus as well as with cough. Pt went to hemodialysis earlier in the day and received 2 hours of treatment before it was stopped due to low BP. Pt was then sent to the ED for further evaluation. Pt states he felt lightheaded and dizzy after dialysis, though not before. Has noticed black-colored stools for the past few days. Overall pt is a rather vague and poor historian. Denies abdominal pain. No chest pain/pressure, palpitations. Denies shortness or breath or difficulty breathing. No fever, chills. Pt's stool examines at bedside which appears melenic in nature. Of note, pt was recently admitted to the hospital from 12/04-12/06 for similar symptoms. Pt underwent EGD which found evidence of erosive esophagitis, atrophic gastritis, and erosive duodenitis. Pt was discharged home on PPI 40 mg b.i.d. x1 month and Carafate x2 weeks. In the ED pt was initially hypotensive as low as 83/50, improved to 120 5/57 after transfusion and fluids. Labs were significant for H&H 5.9/18, otherwise grossly unremarkable around baseline for pt. Stool negative for occult blood. No leukocytosis. Creatinine 3.42 (improved from baseline of around 5.50). No significant electrolyte abnormalities. Lactic acid WNL. Hepatic function baseline. Troponin WNL. Tested negative for flu, COVID, RSV. CXR showed left lobe. EKG demonstrated sinus rhythm with first-degree AV block but no evidence of significant ischemic changes. Pt was treated with midodrine, Protonix, IVF, cefepime, and azithromycin, and trasfused 2 units PRBCs. Pt will be admitted to the hospital for treatment and further evaluation of acute symptomatic blood loss anemia likely secondary to UGIB. Review of Systems 2 Review of Systems: Negative except for that which is stated in the HPI [facility] Medical History Anemia ESRD (end stage renal disease) CKD (chronic kidney disease) stage 5, GFR less than 15 ml/min MSSA bacteremia Dialysis patient COVID-19 vaccine administered Renal failure COPD (chronic obstructive pulmonary disease) Thyroid disease GERD (gastroesophageal reflux disease) Elevated cholesterol PVD (peripheral vascular disease) Prostate CA HTN (hypertension) Heart attack Surgical History Hx of cataract surgery Hx of cystoscopy History of incision and drainage H/O colonoscopy Hx of aortic valve replacement Hx of CABG Social History Household Members: Family Household Members Other:: son Housing: Apartment Are you a primary healthcare management consultant to a significant other at home: No Do you presently have visiting nurse or other home services: No Alcohol intake: never Comment: Surgeon informed that all counts were correct Patient Tobacco Use Status: Never used Tobacco Smoked in Last 30 Days: No e-Cigarette/Vaping Use: Never Used Second Hand Smoke Exposure: No Use of substances other than those prescribed or required for medical reasons: No Advance Directives: Yes Advance Directives on File: Yes Advance Directives Date on File: 12/05/24 service: No Current occupational status: disabled Meds Allergies Allergy/AdvReac Type Severity Reaction Status Date / Time No Known Allergies Allergy Mild NONE Verified 12/26/24 13:59 Home Medications ?Medication ?Instructions ?Recorded ?Confirmed ?Last Taken ?Type allopurinol 100 mg tablet 100 mg PO DAILY 12/30/20 12/26/24 12/26/24 History aspirin 81 mg tablet,delayed 81 mg PO DAILY 12/30/20 12/26/24 12/26/24 History release atorvastatin 80 mg tablet 80 mg PO BEDTIME 12/30/20 12/26/24 12/26/24 History cholecalciferol (vitamin D3) 25 25 mcg PO DAILY 12/30/20 12/26/24 12/26/24 History mcg (1,000 unit) capsule (Vitamin D3) levothyroxine 50 mcg tablet 50 mcg PO DAILY@0600 12/30/20 12/26/24 12/26/24 History cyanocobalamin (vitamin B-12) 1,000 mcg PO DAILY 06/10/23 12/26/24 12/26/24 History 1,000 mcg tablet guaifenesin 400 mg tablet (Chest 400 mg PO Q6H PRN cough 12/04/24 12/26/24 Unknown History Congestion Relief) Physical Exam 2 Vital Signs and Narrative: Vital Signs: Last Vital Signs Temp 97.8 F 12/26/24 17:50 Pulse 73 12/26/24 17:50 Resp 20 12/26/24 17:50 BP 125/57 L 12/26/24 17:50 Pulse Ox 100 12/26/24 17:50 O2 Del Method Room Air 12/26/24 17:50 BMI result Body Mass Index 24.9 General: AOx3, no acute distress Resp: CTA bilaterally CVS: S1, S2, RRR, +murmur GI: +BS, NT, no distention Skin: Warm, dry Neuro: Cranial nerves II-XII grossly intact bilaterally. Motor grossly intact bilaterally Extremities: No edema Psych: Appropriate affect Results Labs 12/26/24 14:10 12/26/24 14:10 Labs: Laboratory Results - last 24 hr 12/26/24 12/26/24 12/26/24 14:10 14:12 14:29 MCV 89.8 MCH 28.6 MCHC 31.9 RDW 21.0 H Plt Count 136 L MPV 11.7 Immature Gran % (Auto) 0.2 Neut % (Auto) 64.1 Lymph % (Auto) 27.1 Parker % (Auto) 7.5 Eos % (Auto) 0.6 Baso % (Auto) 0.5 Lymph # (Auto) 2.4 Parker # (Auto) 0.7 Eos # (Auto) 0.1 Baso # (Auto) 0.0 Abs Immat Gran (auto) 0.02 Absolute Neuts (auto) 5.6 Absolute Nucleated RBC 0.000 Nucleated RBC % (auto) 0.0 Anion Gap 11 L Estim Creat Clear Calc 15.7 Estimated GFR 17 Random Glucose 98 Lactic Acid 1.6 Calcium 9.2 D Magnesium 1.6 Total Bilirubin 0.5 Direct Bilirubin 0.1 AST 24 ALT 8 Alkaline Phosphatase 57 C-Reactive Protein 2.58 H B-Natriuretic Peptide 249 H Total Protein 5.8 L Albumin 2.8 L Lipase 41 Stool Occult Blood NEGATIVE Influenza Type A (PCR) NEGATIVE Influenza Type B (PCR) NEGATIVE RSV RNA Qual (PCR) NEGATIVE SARS-CoV-2 RNA (RT-PCR) NEGATIVE Blood Type A Positive Antibody Screen NEGATIVE Crossmatch See Detail Imaging Radiologist's Impressions: Impressions Chest X-Ray 12/26/24 14:40 IMPRESSION: Left upper lobe pneumonia. Follow-up is recommended to document resolution. 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 Pt will be admitted to the hospital for treatment and further evaluation of acute symptomatic blood loss anemia likely secondary to UGIB. Acute symptomatic blood loss anemia Likely secondary to UGIB H&H 5.9/18.5, pt with hemoptysis, hematemesis, and melena Initial stool negative for occult blood, though new stool sample black and melenic Will retest for occult blood Pt transfused 2 units PRBCs Will treat with Protonix IV b.i.d. Clear liquid diet, NPO after midnight for possible EGD GI consult Follow CBC Hypotension Pt hypotensive as low as 83/50 In the setting of above Pt given IVF, midodrine, and transfused 2 units PRBCs Monitor BP Community-acquired pneumonia CXR shows IMER pneumonia No sepsis Will treat with cefepime and azithromycin, started 12/1919 ESRD On HD // Follows with [facility] consult Monitor on telemetry CAD Continue statin Hold aspirin d/t acute blood loss anemia Hypothyroidism Continue levothyroxine Hx of gout Continue allopurinol Full Code Attending:?Dr. Sargent DVT Prophylaxis: Pneumatic compression due to acute blood loss anemia Pt will require a hospitalization of at least two nights for treatment of?symptomatic acute blood loss anemia likely secondary to UGIB. Pt will require hospital level care for close monitoring of CBC, electrolytes, and BP with transfusion as necessary, as well as IV PPI and specialist consultation with GI for possible EGD in the morning. Quality Stroke Does the patient have a stroke diagnosis?: No VTE Prior VTE?: No VTE Risk Level:: Medical - moderate - high VTE Device Contraindication: N/A - Device Ordered VTE Drug Contraindication: Treatment Not Indicated
--- NOTE | 2024-12-26 18:17 | MHC.EDTECH ---
Within the hour, pt had two bowel movements. First episode of stool was solid formed very dark red/black stool. Second episode of stool was dark red/black diarrhea with some mushy consistency pieces found. RN made aware.
--- NOTE | 2024-12-26 18:50 | PC.NURSE ---
hospitalist made aware of black stools, new order for report occult stool
--- NOTE | 2024-12-26 18:51 | PHA.MEDREC ---
Addendum entered by Bret Ybarra [facility] 12/26/24 19:43: med rec checked by the [facility] Original Note: Pharmacy Consult ? Medication Reconciliation Pharmacy has completed the medication reconciliation. Spoke to patient noah Springer over the phone. Son was able to confirm all of patient medications. Son also stated that patient was just discharged from [facility] and there have been no changes to patient medications. Utilized discharge packet to confirm med list.
[2024-12-26 19:08] LABS: OBS Int Ctl Valid YES; OBS1 POSITIVE (NEGATIVE)
--- NOTE | 2024-12-26 21:24 | PC.NURSE ---
Patient sleeping, awakens easily to verbal stimuli. denies pain. skin pwd, resp even and non labored. NSR via tele, afebrile, VSS. 2nd unit PRBC transfusing as ordered. patient clear liquid diet at this time, NPO at midnight
--- NOTE | 2024-12-26 23:22 | PC.NURSE ---
assumed care of patient at this time., report received from Zehra JORGE
[2024-12-27] VITALS (7 sets, daily range): BP systolic 118–174; BP diastolic 45–74; PULSE 58–72; RESP 16–19; TEMP 36.3–37.1; O2SAT 94–100
--- NOTE | 2024-12-27 00:24 | PC.NURSE ---
blood transfusion continues to transfuse. per Zehra JORGE, verbal order from DO Ordaz to transfuse RBCs at 75ml/hr as pt is dialysis patient/TACO risk. plan for blood to be discarded after the 3 hr 30 min time limit.
--- NOTE | 2024-12-27 02:34 | PC.NURSE ---
pt repositioned in the bed, resting comfortably, denies acute pain or distress. on air sampling and monitoring, call martinez within reach, plan of care continues.
[2024-12-27 05:18] LABS: Hematocrit 21.6 % (42.0-52.0); Hemoglobin 7.2 g/dl (14.0-18.0); Mean Corpuscular HGB Conc 33.3 g/dl (31.0-36.0); Mean Corpuscular Hemoglobin 28.6 pg (27.0-33.0); Mean Corpuscular Volume 85.7 fL (80.0-98.0); Red Blood Count 2.52 X10*6/uL (4.60-5.80); White Blood Count 8.5 X10*3/uL (4.8-10.8)
[2024-12-27 05:19] LABS: Platelet Count 95 X10*3/uL (160-400)
[2024-12-27 05:39] LABS: Anion Gap 14 (12-20); Blood Urea Nitrogen 49 mg/dL (9-16); Calcium 9.6 mg/dL (8.4-10.2); Carbon Dioxide 29 mmol/L (22-29); Chloride 101 mmol/L (96-108); Creatinine Clr Calc Pharmacy 13.3; Estimated Glomerular Filt Rate 14; Glucose Random 79 mg/dL (60-115); Potassium 3.9 mmol/L (3.3-5.1); Sodium 140 mmol/L (135-145)
[2024-12-27] MEDS: Levothyroxine Sodium 50 MCG TABLET PO (06:32)
[2024-12-27] MEDS: Pantoprazole Sodium 40 MG/10 ML VIAL IVPUSH ×2 (06:32→17:38)
[2024-12-27] MEDS: Cyanocobalamin (Vitamin B-12) 1,000 MCG TABLET 1000 MCG PO (08:17)
[2024-12-27] MEDS: Sucralfate 1 GM TABLET PO ×4 (08:17→21:19)
[2024-12-27] MEDS: allopurinoL 100 MG TABLET PO (08:17)
[2024-12-27] MEDS: Folic Acid 1 MG TABLET PO (08:20)
[2024-12-27] MEDS: Cholecalciferol (Vitamin D3) 25 MCG TABLET PO (08:20)
[2024-12-27] MEDS: 0.9 % Sodium Chloride Flush 3 ML SYRINGE IVFLUSH ×2 (08:21→15:31)
--- NOTE | 2024-12-27 08:41 | PM.GICN ---
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 Pt seen at bedside with his son. Reports one week of feeling weak with low appetite and nausea. Reports L sided abd pain which gets worse with food intake. Sx reminiscent of what he had last month. Two days prior he also developed vomiting that was initially clear and gradually turned black/maroonish. He has had 4-5 episodes of hematemesis in the last 2 days. When he went to the dialysis session yesterday, was noted to have low blood pressure, and point of care hemoglobin was less than 7, he was therefore sent to the emergency room for further evaluation. In the emergency room, he was noted to have low pressures which improved with fluid resuscitation. Initial labs is hemoglobin of 5.9 which improved to 7.2 after 2 units of transfusions overnight. Recent EGD 11/2024: Erosive esophagitis and duodenitis. Endorses compliance to PPI and carafate. Review of Systems Review of Systems: Yes all other systems are reviewed and are negative PMFSH Past Medical History Medical History (Updated 12/27/24 @ 12:16 by Felicitas Andre MD) ESRD (end stage renal disease) Anemia CKD (chronic kidney disease) stage 5, GFR less than 15 ml/min MSSA bacteremia Dialysis patient COVID-19 vaccine administered Renal failure COPD (chronic obstructive pulmonary disease) Thyroid disease GERD (gastroesophageal reflux disease) Elevated cholesterol PVD (peripheral vascular disease) Prostate CA HTN (hypertension) Heart attack Surgical History Surgical History Hx of cataract surgery Hx of cystoscopy History of incision and drainage H/O colonoscopy Hx of aortic valve replacement Hx of CABG Social History Social History Household Members: Family Household Members Other:: son Housing: Apartment Are you a primary career development manager to a significant other at home: No Do you presently have visiting nurse or other home services: No Alcohol intake: never Comment: Surgeon informed that all counts were correct Patient Tobacco Use Status: Never used Tobacco Smoked in Last 30 Days: No e-Cigarette/Vaping Use: Never Used Second Hand Smoke Exposure: No Use of substances other than those prescribed or required for medical reasons: No Advance Directives: Yes Advance Directives on File: Yes Advance Directives Date on File: 12/05/24 service: No Current occupational status: disabled Meds Allergies Allergy/AdvReac Type Severity Reaction Status Date / Time No Known Allergies Allergy Mild NONE Verified 12/26/24 13:59 Active Medications: Current Medications Acetaminophen (Acetaminophen 325 Mg Tablet) 650 mg PO Q6H PRN PRN Reason: Pain, Mild 1-3,fever,headache Allopurinol (Allopurinol 100 Mg Tablet) 100 mg PO DAILY [facility] Last Admin: 12/27/24 08:17 Dose: 100 mg Atorvastatin Calcium (Atorvastatin Calcium 80 Mg Tablet) 80 mg PO BEDTIME [facility] Last Admin: 12/27/24 01:35 Dose: Not Given Calcium Carbonate (Calcium Carbonate 750 Mg Tab.Chew) 750 mg PO Q4H PRN PRN Reason: Heartburn Cyanocobalamin (Cyanocobalamin (Vitamin B-12) 1,000 Mcg Tablet) 1,000 mcg PO DAILY [facility] Last Admin: 12/27/24 08:17 Dose: 1,000 mcg Folic Acid (Folic Acid 1 Mg Tablet) 1 mg PO DAILY [facility] Last Admin: 12/27/24 08:20 Dose: 1 mg Cefepime HCl 0.5 gm/ Sodium (Chloride) 50 mls @ 100 mls/hr IV Q24H [facility] Azithromycin 500 mg/ Sodium (Chloride) 250 mls @ 125 mls/hr IV Q24H [facility] Levothyroxine Sodium (Levothyroxine Sodium 50 Mcg Tablet) 50 mcg PO DAILY@0600 [facility] Last Admin: 12/27/24 06:32 Dose: 50 mcg Magnesium Hydroxide (Milk Of Magnesia 30 Ml Oral.Susp) 30 ml PO DAILY PRN PRN Reason: Constipation Melatonin (Melatonin 3 Mg Tablet) 6 mg PO BEDTIME PRN PRN Reason: Insomnia Ondansetron HCl (Ondansetron Hcl 4 Mg/2 Ml Vial) 4 mg IVPUSH Q8H PRN PRN Reason: Nausea and Vomiting Pantoprazole Sodium (Pantoprazole Sodium 40 Mg/10 Ml Vial) 40 mg IVPUSH BID@0630,1630 [facility] Last Admin: 12/27/24 06:32 Dose: 40 mg Sodium Chloride (0.9 % Sodium Chloride Flush 3 Ml Syringe) 3 ml IVFLUSH QSHIFT [facility] Last Admin: 12/27/24 08:21 Dose: 3 ml Sucralfate (Sucralfate 1 Gm Tablet) 1 gm PO QIDACHS [facility] Last Admin: 12/27/24 08:17 Dose: 1 gm Vitamin D (Cholecalciferol (Vitamin D3) 25 Mcg Tablet) 25 mcg PO DAILY [facility] Last Admin: 12/27/24 08:20 Dose: 25 mcg Home Medications ?Medication ?Instructions ?Recorded ?Confirmed ?Last Taken ?Type allopurinol 100 mg tablet 100 mg PO DAILY 12/30/20 12/26/24 12/26/24 History aspirin 81 mg tablet,delayed 81 mg PO DAILY 12/30/20 12/26/24 12/26/24 History release atorvastatin 80 mg tablet 80 mg PO BEDTIME 12/30/20 12/26/24 12/26/24 History cholecalciferol (vitamin D3) 25 25 mcg PO DAILY 12/30/20 12/26/24 12/26/24 History mcg (1,000 unit) capsule (Vitamin D3) levothyroxine 50 mcg tablet 50 mcg PO DAILY@0600 12/30/20 12/26/24 12/26/24 History cyanocobalamin (vitamin B-12) 1,000 mcg PO DAILY 06/10/23 12/26/24 12/26/24 History 1,000 mcg tablet guaifenesin 400 mg tablet (Chest 400 mg PO Q6H PRN cough 12/04/24 12/26/24 Unknown History Congestion Relief) Physical Exam Vital Signs: Vital Signs: Last Vital Signs Temp 98.3 F 12/27/24 00:45 Pulse 65 12/27/24 07:20 Resp 19 12/27/24 07:20 BP 118/45 L 12/27/24 07:20 Pulse Ox 100 12/27/24 07:20 O2 Del Method Room Air 12/27/24 07:20 BMI result Body Mass Index 24.9 Elderly male NAD Pale and undernourished abd soft, nontender, nondistended No resp distress MIld non-pitting edema b/l Results Labs 12/27/24 04:21 12/27/24 04:21 Labs: Short CBC 12/26/24 12/27/24 Range/Units 14:10 04:21 WBC 8.7 8.5 (4.8-10.8) X10*3/uL Hgb 5.9 L* D 7.2 L D (14.0-18.0) g/dl Hct 18.5 L* D 21.6 L (42.0-52.0) % Plt Count 136 L 95 L D (160-400) X10*3/uL BMP 12/26/24 12/27/24 14:10 04:21 Sodium 139 140 Potassium 3.4 D 3.9 Chloride 98 101 Carbon Dioxide 33 H 29 BUN 34 H 49 H Creatinine 3.42 H 4.06 H* Calcium 9.2 D 9.6 Liver Function 12/26/24 Range/Units 14:10 Total Bilirubin 0.5 (0.0-1.0) mg/dL Direct Bilirubin 0.1 (0.0-0.5) mg/dL AST 24 (5-37) U/L ALT 8 (0-40) U/L Alkaline Phosphatase 57 (39-117) U/L Albumin 2.8 L (3.5-5.0) g/dL Assessment and Plan (1) Anemia: Qualifiers: Anemia type: unspecified type Qualified Code(s): D64.9 - Anemia, unspecified Status: Acute (2) GIB (gastrointestinal bleeding): Status: Acute (3) ESRD (end stage renal disease): Status: Acute (4) Hematemesis: Status: Acute (5) Esophagitis determined by endoscopy: Status: Acute (6) Duodenitis: Status: Acute Plan Pt coming in for weakness and acute on chronic anemia in the setting of worsening GI sx in the past one week with hematemesis x 2 days. Likely 2/2 known severe esophagitis and duodenitis however due to worsening of sx despite anti-secretory therapy will proceed with endoscopic evaluation to r/o PUD. Plan: - OK for CLD today - NPO after MN for EGD tmrw. Son is aware and will be available over phone for consent. - IV Protonix b.i.d. - liquid Carafate 10 mL q.i.d. - Kindly coordinate HD session for tmrw morning - pt's son reports HD session not completed on Tuesday due to medical condition - Pt also reports 3-4 weeks of new onset R sided headache non-urgent head imaging Thank you for allowing me to participate in his care. Please do not hesitate to reach out for any questions or concerns. Procedures Date of Service Date of Service: 12/27/24
--- NOTE | 2024-12-27 11:40 | PM.CNNEP ---
History of Present Illness Reason for Consult Consult date: 12/27/24 Chief Complaint Chief complaint: Acute blood loss anemia History of Present Illness Narrative: 84 year-old male with a history of ?ESRD on HD M/W/F presented to the ED ?from dialysis for evaluation of hypotension. He states he felt overall unwell with a few episodes of nausea and vomiting. He reports blood in vomitus as well as with cough. He went to hemodialysis and received 2 hours of treatment before it was stopped due to low blood pressure. Review of Systems Review of Systems 10 points ROS negative except for pertinent in HPI PMFSH Past Medical History Medical History (Updated 12/27/24 @ 11:46 by Kali Griffin MD) ESRD (end stage renal disease) Anemia CKD (chronic kidney disease) stage 5, GFR less than 15 ml/min MSSA bacteremia Dialysis patient COVID-19 vaccine administered Renal failure COPD (chronic obstructive pulmonary disease) Thyroid disease GERD (gastroesophageal reflux disease) Elevated cholesterol PVD (peripheral vascular disease) Prostate CA HTN (hypertension) Heart attack Surgical History Surgical History Hx of cataract surgery Hx of cystoscopy History of incision and drainage H/O colonoscopy Hx of aortic valve replacement Hx of CABG Social History Social History Household Members: Family Household Members Other:: son Housing: Apartment Are you a primary patient care secretary to a significant other at home: No Do you presently have visiting nurse or other home services: No Alcohol intake: never Comment: Surgeon informed that all counts were correct Patient Tobacco Use Status: Never used Tobacco Smoked in Last 30 Days: No e-Cigarette/Vaping Use: Never Used Second Hand Smoke Exposure: No Use of substances other than those prescribed or required for medical reasons: No Advance Directives: Yes Advance Directives on File: Yes Advance Directives Date on File: 12/05/24 service: No Current occupational status: disabled Meds Allergies Allergy/AdvReac Type Severity Reaction Status Date / Time No Known Allergies Allergy Mild NONE Verified 12/26/24 13:59 Active Medications: Current Medications Acetaminophen (Acetaminophen 325 Mg Tablet) 650 mg PO Q6H PRN PRN Reason: Pain, Mild 1-3,fever,headache Allopurinol (Allopurinol 100 Mg Tablet) 100 mg PO DAILY [facility] Last Admin: 12/27/24 08:17 Dose: 100 mg Atorvastatin Calcium (Atorvastatin Calcium 80 Mg Tablet) 80 mg PO BEDTIME [facility] Last Admin: 12/27/24 01:35 Dose: Not Given Calcium Carbonate (Calcium Carbonate 750 Mg Tab.Chew) 750 mg PO Q4H PRN PRN Reason: Heartburn Cyanocobalamin (Cyanocobalamin (Vitamin B-12) 1,000 Mcg Tablet) 1,000 mcg PO DAILY [facility] Last Admin: 12/27/24 08:17 Dose: 1,000 mcg Folic Acid (Folic Acid 1 Mg Tablet) 1 mg PO DAILY [facility] Last Admin: 12/27/24 08:20 Dose: 1 mg Cefepime HCl 0.5 gm/ Sodium (Chloride) 50 mls @ 100 mls/hr IV Q24H [facility] Azithromycin 500 mg/ Sodium (Chloride) 250 mls @ 125 mls/hr IV Q24H [facility] Levothyroxine Sodium (Levothyroxine Sodium 50 Mcg Tablet) 50 mcg PO DAILY@0600 [facility] Last Admin: 12/27/24 06:32 Dose: 50 mcg Magnesium Hydroxide (Milk Of Magnesia 30 Ml Oral.Susp) 30 ml PO DAILY PRN PRN Reason: Constipation Melatonin (Melatonin 3 Mg Tablet) 6 mg PO BEDTIME PRN PRN Reason: Insomnia Ondansetron HCl (Ondansetron Hcl 4 Mg/2 Ml Vial) 4 mg IVPUSH Q8H PRN PRN Reason: Nausea and Vomiting Pantoprazole Sodium (Pantoprazole Sodium 40 Mg/10 Ml Vial) 40 mg IVPUSH BID@0630,1630 [facility] Last Admin: 12/27/24 06:32 Dose: 40 mg Sodium Chloride (0.9 % Sodium Chloride Flush 3 Ml Syringe) 3 ml IVFLUSH QSHIFT [facility] Last Admin: 12/27/24 08:21 Dose: 3 ml Sucralfate (Sucralfate 1 Gm Tablet) 1 gm PO QIDACHS [facility] Last Admin: 12/27/24 08:17 Dose: 1 gm Vitamin D (Cholecalciferol (Vitamin D3) 25 Mcg Tablet) 25 mcg PO DAILY [facility] Last Admin: 12/27/24 08:20 Dose: 25 mcg Home Medications ?Medication ?Instructions ?Recorded ?Confirmed ?Last Taken ?Type allopurinol 100 mg tablet 100 mg PO DAILY 12/30/20 12/26/24 12/26/24 History aspirin 81 mg tablet,delayed 81 mg PO DAILY 12/30/20 12/26/24 12/26/24 History release atorvastatin 80 mg tablet 80 mg PO BEDTIME 12/30/20 12/26/24 12/26/24 History cholecalciferol (vitamin D3) 25 25 mcg PO DAILY 12/30/20 12/26/24 12/26/24 History mcg (1,000 unit) capsule (Vitamin D3) levothyroxine 50 mcg tablet 50 mcg PO DAILY@0600 12/30/20 12/26/24 12/26/24 History cyanocobalamin (vitamin B-12) 1,000 mcg PO DAILY 06/10/23 12/26/24 12/26/24 History 1,000 mcg tablet guaifenesin 400 mg tablet (Chest 400 mg PO Q6H PRN cough 12/04/24 12/26/24 Unknown History Congestion Relief) Physical Exam Vital Signs: Last Vital Signs Temp 98.3 F 12/27/24 00:45 Pulse 65 12/27/24 07:20 Resp 19 12/27/24 07:20 BP 118/45 L 12/27/24 07:20 Pulse Ox 100 12/27/24 07:20 O2 Del Method Room Air 12/27/24 07:20 BMI result Body Mass Index 24.9 Const General: alert and awake HEENT Head: Yes normocephalic and Yes atraumatic Neck Neck: Yes supple Resp Auscultation: diminished lung sounds Cardio Heart sounds: S1 normal heart sound present and S2 normal heart sound present GI Palpation (GI): Soft to palpation and nontender Extrem General: Yes normal to inspection Results Lab Results 12/27/24 04:21 12/27/24 04:21 Lab results: Chemistry 12/26/24 12/27/24 14:10 04:21 Sodium 139 140 Potassium 3.4 D 3.9 Carbon Dioxide 33 H 29 BUN 34 H 49 H Creatinine 3.42 H 4.06 H* Calcium 9.2 D 9.6 Hematology 12/26/24 12/27/24 14:10 04:21 WBC 8.7 8.5 Hgb 5.9 L* D 7.2 L D Plt Count 136 L 95 L D Assessment and Plan (1) ESRD (end stage renal disease): Status: Acute (2) GIB (gastrointestinal bleeding): Status: Acute (3) Anemia: Qualifiers: Anemia type: unspecified type Qualified Code(s): D64.9 - Anemia, unspecified Status: Acute Plan known ESRD on HD at [facility] followed by Dr Rob admitted with GIB nephrogenic anemia + UGIB REC HD in am follow h/h transfuse for Hb < 7 PPI GI consult P binders [facility] Procedures Date of Service Date of Service: 12/27/24
--- NOTE | 2024-12-27 12:20 | HO.PM.IMPN ---
Subjective Subjective Date of Service: 12/27/24 Interval History: Seen and evaluated this morning looks more comfortable Plan for EGD tomorrow tolerating PO no other events Review of Systems Review of Systems: Yes all other systems are reviewed and are negative Physical Exam Vital Signs: Vital Signs: Last Vital Signs Temp 98.3 F 12/27/24 00:45 Pulse 65 12/27/24 07:20 Resp 19 12/27/24 07:20 BP 118/45 L 12/27/24 07:20 Pulse Ox 100 12/27/24 07:20 O2 Del Method Room Air 12/27/24 07:20 BMI result Body Mass Index 24.9 Const: Other: Const: General: cooperati ve, comfortable, a lert and awake Nu tritional Appearan ce: average body h abitus Resp: Effort & Inspectio n: normal respirat ory effort, able t o speak in complet e sentences, no re spiratory distress and no use of acc essory muscles Cardio: Rate: regular rate GI: Inspection: No dis tended Palpation (GI): Soft to palp ation and nontende r Neuro: General: moves all extremities . Objective Data Active Medications Acetaminophen (Acetaminophen 325 Mg Tablet) 650 mg PO Q6H PRN PRN Reason: Pain, Mild 1-3,fever,headache Allopurinol (Allopurinol 100 Mg Tablet) 100 mg PO DAILY [facility] Last Admin: 12/27/24 08:17 Dose: 100 mg Documented By: SUKHI Atorvastatin Calcium (Atorvastatin Calcium 80 Mg Tablet) 80 mg PO BEDTIME [facility] Last Admin: 12/27/24 01:35 Dose: Not Given Documented By: ALEX Non-Admin Reason: See Note Calcium Carbonate (Calcium Carbonate 750 Mg Tab.Chew) 750 mg PO Q4H PRN PRN Reason: Heartburn Cyanocobalamin (Cyanocobalamin (Vitamin B-12) 1,000 Mcg Tablet) 1,000 mcg PO DAILY [facility] Last Admin: 12/27/24 08:17 Dose: 1,000 mcg Documented By: SUKHI Folic Acid (Folic Acid 1 Mg Tablet) 1 mg PO DAILY [facility] Last Admin: 12/27/24 08:20 Dose: 1 mg Documented By: SUKHI Cefepime HCl 0.5 gm/ Sodium (Chloride) 50 mls @ 100 mls/hr IV Q24H [facility] Azithromycin 500 mg/ Sodium (Chloride) 250 mls @ 125 mls/hr IV Q24H [facility] Levothyroxine Sodium (Levothyroxine Sodium 50 Mcg Tablet) 50 mcg PO DAILY@0600 [facility] Last Admin: 12/27/24 06:32 Dose: 50 mcg Documented By: ALEX Magnesium Hydroxide (Milk Of Magnesia 30 Ml Oral.Susp) 30 ml PO DAILY PRN PRN Reason: Constipation Melatonin (Melatonin 3 Mg Tablet) 6 mg PO BEDTIME PRN PRN Reason: Insomnia Ondansetron HCl (Ondansetron Hcl 4 Mg/2 Ml Vial) 4 mg IVPUSH Q8H PRN PRN Reason: Nausea and Vomiting Pantoprazole Sodium (Pantoprazole Sodium 40 Mg/10 Ml Vial) 40 mg IVPUSH BID@0630,1630 [facility] Last Admin: 12/27/24 06:32 Dose: 40 mg Documented By: ALEX Sodium Chloride (0.9 % Sodium Chloride Flush 3 Ml Syringe) 3 ml IVFLUSH QSHIFT [facility] Last Admin: 12/27/24 08:21 Dose: 3 ml Documented By: SUKHI Sucralfate (Sucralfate 1 Gm Tablet) 1 gm PO QIDACHS [facility] Last Admin: 12/27/24 12:08 Dose: 1 gm Documented By: SUKHI Vitamin D (Cholecalciferol (Vitamin D3) 25 Mcg Tablet) 25 mcg PO DAILY [facility] Last Admin: 12/27/24 08:20 Dose: 25 mcg Documented By: SUKHI Labs 12/27/24 04:21 12/27/24 04:21 Labs: Laboratory Results - last 24 hr 12/26/24 12/26/24 12/26/24 14:10 14:12 14:29 MCV 89.8 MCH 28.6 MCHC 31.9 RDW 21.0 H Plt Count 136 L MPV 11.7 Immature Gran % (Auto) 0.2 Neut % (Auto) 64.1 Lymph % (Auto) 27.1 [place] % (Auto) 7.5 Eos % (Auto) 0.6 Baso % (Auto) 0.5 Lymph # (Auto) 2.4 [place] # (Auto) 0.7 Eos # (Auto) 0.1 Baso # (Auto) 0.0 Abs Immat Gran (auto) 0.02 Absolute Neuts (auto) 5.6 Absolute Nucleated RBC 0.000 Nucleated RBC % (auto) 0.0 Smear Path Review SEE NOTE Anion Gap 11 L Estim Creat Clear Calc 15.7 Estimated GFR 17 Random Glucose 98 Lactic Acid 1.6 Calcium 9.2 D Magnesium 1.6 Total Bilirubin 0.5 Direct Bilirubin 0.1 AST 24 ALT 8 Alkaline Phosphatase 57 C-Reactive Protein 2.58 H B-Natriuretic Peptide 249 H Total Protein 5.8 L Albumin 2.8 L Lipase 41 Stool Occult Blood NEGATIVE Influenza Type A (PCR) NEGATIVE Influenza Type B (PCR) NEGATIVE RSV RNA Qual (PCR) NEGATIVE SARS-CoV-2 RNA (RT-PCR) NEGATIVE Blood Type A Positive Antibody Screen NEGATIVE Crossmatch See Detail 12/26/24 12/27/24 18:58 04:21 MCV 85.7 MCH 28.6 MCHC 33.3 RDW 19.0 H Plt Count 95 L D MPV Not Reportable Immature Gran % (Auto) Neut % (Auto) Lymph % (Auto) [place] % (Auto) Eos % (Auto) Baso % (Auto) Lymph # (Auto) [place] # (Auto) Eos # (Auto) Baso # (Auto) Abs Immat Gran (auto) Absolute Neuts (auto) Absolute Nucleated RBC 0.000 Nucleated RBC % (auto) 0.0 Smear Path Review Anion Gap 14 Estim Creat Clear Calc 13.3 Estimated GFR 14 Random Glucose 79 Lactic Acid Calcium 9.6 Magnesium Total Bilirubin Direct Bilirubin AST ALT Alkaline Phosphatase C-Reactive Protein B-Natriuretic Peptide Total Protein Albumin Lipase Stool Occult Blood POSITIVE Influenza Type A (PCR) Influenza Type B (PCR) RSV RNA Qual (PCR) SARS-CoV-2 RNA (RT-PCR) Blood Type Antibody Screen Crossmatch Assessment and Plan (1) Duodenitis: Status: Acute (2) Esophagitis determined by endoscopy: Status: Acute (3) Hematemesis: Status: Acute (4) GIB (gastrointestinal bleeding): Status: Acute (5) ESRD (end stage renal disease): Status: Acute (6) Left upper lobe pneumonia: Status: Acute Plan Pt is an 84-year-old Bulgarian-speaking male with a PMH significant for?ESRD on HD M/W/F, 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 Pt will be admitted to the hospital for treatment and further evaluation of acute symptomatic blood loss anemia likely secondary to UGIB. Acute symptomatic blood loss anemia Likely secondary to UGIB w Hx of Esophagitis Hb at 7.2 post 2 units transfusion Protonix IV b.i.d. Clear liquid diet, NPO after midnight for EGD tomorrow GI consult Follow CBC Hypotension Improved after IVF, midodrine, and transfused 2 units PRBCs Monitor BP Community-acquired pneumonia CXR shows IMER pneumonia No sepsis continue cefepime and azithromycin, started 12/1919 ESRD On HD M// Follows with [facility] consult, HD tomorrow morning Monitor on telemetry CAD Continue statin Hold aspirin d/t acute blood loss anemia Hypothyroidism Continue levothyroxine Hx of gout Continue allopurinol Full Code DVT Prophylaxis: Pneumatic compression due to acute blood loss anemia Pt will require a hospitalization overnight for treatment of?symptomatic acute blood loss anemia likely secondary to UGIB. Pt will require hospital level care for close monitoring of CBC, electrolytes, and BP with transfusion as necessary, as well as IV PPI and specialist consultation with GI for possible EGD in the morning Quality Stroke Does the patient have a stroke diagnosis?: No VTE Prior VTE?: No VTE Risk Level:: Medical - moderate - high VTE Device Contraindication: N/A - Device Ordered VTE Drug Contraindication: Treatment Not Indicated
[2024-12-27] MEDS: cefEPime HCl 0.5 GM in 0.9 % Sodium Chloride 50 ML IV (14:10)
--- NOTE | 2024-12-27 14:40 | MHC.CM.PN ---
IMM 12/27/24, Pt was here a few weeks ago, CM met with him and full time staff interpreter to confirm that all info is the same. He lives with his son, he has [facility], he goes to [facility]. His son will transport home at [place]. PCP is Dr. Higuera, HCP is his son Edbryson. DCP: home, resume services. CM to follow for DC needs.
[2024-12-27] MEDS: Acetaminophen 325 MG TABLET 650 MG PO (15:30)
[2024-12-27] MEDS: Azithromycin 500 MG in 0.9 % Sodium Chloride 250 ML 125 MG IV (15:31)
[2024-12-27] MEDS: Atorvastatin Calcium 80 MG TABLET PO (21:19)
[2024-12-28] VITALS (11 sets, daily range): BP systolic 112–170; BP diastolic 44–72; PULSE 62–75; RESP 16–20; TEMP 36.3–37.1; O2SAT 93–100
[2024-12-28] MEDS: Levothyroxine Sodium 50 MCG TABLET PO (06:11)
[2024-12-28] MEDS: Pantoprazole Sodium 40 MG/10 ML VIAL IVPUSH ×2 (06:11→17:52)
[2024-12-28] MEDS: Sucralfate 1 GM TABLET PO ×2 (06:11→22:31)
[2024-12-28] MEDS: ondansetron HCL 4 MG/2 ML VIAL IVPUSH ×2 (06:19→15:52)
[2024-12-28 07:45] LABS: MANUAL DIFF FLAG NO
[2024-12-28 07:54] LABS: Basophils Percent Auto 0.6 % (0-2); Eosinophils Absolute Auto 0.3 X10*3/uL (0.0-0.4); Eosinophils Percent Auto 4.2 % (0-4); Hematocrit 21.7 % (42.0-52.0); Hemoglobin 7.2 g/dl (14.0-18.0); Imm Gran Abs Auto 0.02 X10*3/uL (0.00-0.03); Imm Gran Pct Auto 0.3 % (0.0-0.4); Lymphocytes Absolute Auto 1.9 X10*3/uL (1.2-4.9); Lymphocytes Percent Auto 27.5 % (20-40); Mean Corpuscular HGB Conc 33.2 g/dl (31.0-36.0); Mean Corpuscular Hemoglobin 28.9 pg (27.0-33.0); Mean Corpuscular Volume 87.1 fL (80.0-98.0); Mean Platelet Volume 12.8 fL (9.4-12.4); Monocytes Absolute Auto 0.6 X10*3/uL (0.1-1.2); Monocytes Percent Auto 8.9 % (2-11); Neutrophils Percent Auto 58.5 % (45-73); Platelet Count 103 X10*3/uL (160-400); Red Blood Count 2.49 X10*6/uL (4.60-5.80); Red Cell Distribution Width 19.2 % (11.0-16.0); White Blood Count 6.9 X10*3/uL (4.8-10.8)
[2024-12-28 08:18] LABS: Anion Gap 14 (12-20); Blood Urea Nitrogen 66 mg/dL (9-16); Calcium 10.4 mg/dL (8.4-10.2); Carbon Dioxide 28 mmol/L (22-29); Chloride 100 mmol/L (96-108); Creatinine Clr Calc Pharmacy 9.4; Estimated Glomerular Filt Rate 10; Glucose Random 90 mg/dL (60-115); Sodium 138 mmol/L (135-145)
[2024-12-28] MEDS: Cyanocobalamin (Vitamin B-12) 1,000 MCG TABLET 1000 MCG PO (08:29)
[2024-12-28] MEDS: Cholecalciferol (Vitamin D3) 25 MCG TABLET PO (08:29)
[2024-12-28] MEDS: 0.9 % Sodium Chloride Flush 3 ML SYRINGE IVFLUSH ×2 (08:29→17:52)
[2024-12-28] MEDS: allopurinoL 100 MG TABLET PO (08:29)
[2024-12-28] MEDS: Folic Acid 1 MG TABLET PO (08:29)
--- NOTE | 2024-12-28 10:56 | MHC.CM.PN ---
Addendum entered by Nanette Aquino RN 12/28/24 11:43: [facility] ACCEPTING AND WILL FOLLOW FOR DC. Original Note: EMR REVIEWED, PT W/ACUTE BLOOD LOSS ANEMIA/GI BLEED/PNA, P.T. RECOMMENDING HOME W/SERVICES, REFERRAL PLACED TO [facility] HAS NO PT AVAILABILITY. PER HOSPITALIST ANTIC PT WILL BE MEDICALLY CLEARED FOR DC THURSDAY 12/28, CM WILL CONT TO FOLLOW DC NEEDS.
[2024-12-28] MEDS: Acetaminophen 325 MG TABLET 650 MG PO (11:38)
[2024-12-28 12:37] LABS: Hematocrit 22.4 % (42.0-52.0); Hemoglobin 7.6 g/dl (14.0-18.0); Mean Corpuscular HGB Conc 33.9 g/dl (31.0-36.0); Mean Corpuscular Hemoglobin 28.9 pg (27.0-33.0); Mean Corpuscular Volume 85.2 fL (80.0-98.0); Mean Platelet Volume 12.2 fL (9.4-12.4); Platelet Count 145 X10*3/uL (160-400); Red Blood Count 2.63 X10*6/uL (4.60-5.80); Red Cell Distribution Width 19.1 % (11.0-16.0); White Blood Count 6.5 X10*3/uL (4.8-10.8)
--- NOTE | 2024-12-28 13:26 | P.PNIM_ITS ---
Subjective Subjective Date of Service: 12/28/24 Interval History: Seen and evaluated this morning looks comfortable Plan for EGD today tolerating PO no other events Review of Systems Review of Systems: Yes all other systems are reviewed and are negative Physical Exam 2 Vital Signs: Vital Signs: Last Vital Signs Temp 97.4 F 12/28/24 07:54 Pulse 63 12/28/24 08:14 Resp 20 12/28/24 07:54 BP 155/69 H 12/28/24 08:14 Pulse Ox 93 12/28/24 08:14 O2 Del Method Room Air 12/28/24 07:54 BMI result Body Mass Index 24.9 Const: Other: Const: General: cooperati ve, comfortable, a lert and awake Nu tritional Appearan ce: average body h abitus Resp: Effort & Inspectio n: normal respirat ory effort, able t o speak in complet e sentences, no re spiratory distress and no use of acc essory muscles Cardio: Rate: regular rate GI: Inspection: No dis tended Palpation (GI): Soft to palp ation and nontende r Neuro: General: moves all extremities . Objective Data Active Medications Acetaminophen (Acetaminophen 325 Mg Tablet) 650 mg PO Q6H PRN PRN Reason: Pain, Mild 1-3,fever,headache Last Admin: 12/28/24 11:38 Dose: 650 mg Documented By: PAULO Allopurinol (Allopurinol 100 Mg Tablet) 100 mg PO DAILY [facility] Last Admin: 12/28/24 08:29 Dose: 100 mg Documented By: PAULO Atorvastatin Calcium (Atorvastatin Calcium 80 Mg Tablet) 80 mg PO BEDTIME [facility] Last Admin: 12/27/24 21:19 Dose: 80 mg Documented By: EDUAR Calcium Carbonate (Calcium Carbonate 750 Mg Tab.Chew) 750 mg PO Q4H PRN PRN Reason: Heartburn Cyanocobalamin (Cyanocobalamin (Vitamin B-12) 1,000 Mcg Tablet) 1,000 mcg PO DAILY [facility] Last Admin: 12/28/24 08:29 Dose: 1,000 mcg Documented By: PAULO Folic Acid (Folic Acid 1 Mg Tablet) 1 mg PO DAILY [facility] Last Admin: 12/28/24 08:29 Dose: 1 mg Documented By: PALUO Cefepime HCl 0.5 gm/ Sodium (Chloride) 50 mls @ 100 mls/hr IV Q24H [facility] Last Infusion: 12/27/24 14:43 Dose: Infused Documented By: SUKHI Azithromycin 500 mg/ Sodium (Chloride) 250 mls @ 125 mls/hr IV Q24H [facility] Last Infusion: 12/27/24 17:43 Dose: Infused Documented By: SUZI Levothyroxine Sodium (Levothyroxine Sodium 50 Mcg Tablet) 50 mcg PO DAILY@0600 [facility] Last Admin: 12/28/24 06:11 Dose: 50 mcg Documented By: EDUAR Magnesium Hydroxide (Milk Of Magnesia 30 Ml Oral.Susp) 30 ml PO DAILY PRN PRN Reason: Constipation Melatonin (Melatonin 3 Mg Tablet) 6 mg PO BEDTIME PRN PRN Reason: Insomnia Ondansetron HCl (Ondansetron Hcl 4 Mg/2 Ml Vial) 4 mg IVPUSH Q8H PRN PRN Reason: Nausea and Vomiting Last Admin: 12/28/24 06:19 Dose: 4 mg Documented By: EDUAR Pantoprazole Sodium (Pantoprazole Sodium 40 Mg/10 Ml Vial) 40 mg IVPUSH BID@0630,1630 [facility] Last Admin: 12/28/24 06:11 Dose: 40 mg Documented By: EDUAR Sodium Chloride (0.9 % Sodium Chloride Flush 3 Ml Syringe) 3 ml IVFLUSH QSHIFT [facility] Last Admin: 12/28/24 08:29 Dose: 3 ml Documented By: PAULO Sucralfate (Sucralfate 1 Gm Tablet) 1 gm PO QIDACHS [facility] Last Admin: 12/28/24 11:21 Dose: Not Given Documented By: PAULO Non-Admin Reason: In dialysis NPO Vitamin D (Cholecalciferol (Vitamin D3) 25 Mcg Tablet) 25 mcg PO DAILY [facility] Last Admin: 12/28/24 08:29 Dose: 25 mcg Documented By: PAULO Labs 12/28/24 12:29 12/28/24 07:31 Labs: Laboratory Results - last 24 hr 12/28/24 12/28/24 12/28/24 07:31 07:31 07:31 MCV 87.1 MCH 28.9 MCHC 33.2 RDW 19.2 H Plt Count 103 L MPV 12.8 H Immature Gran % (Auto) 0.3 Neut % (Auto) 58.5 Lymph % (Auto) 27.5 [place] % (Auto) 8.9 Eos % (Auto) 4.2 H Baso % (Auto) 0.6 Lymph # (Auto) 1.9 [place] # (Auto) 0.6 Eos # (Auto) 0.3 Baso # (Auto) 0.0 Abs Immat Gran (auto) 0.02 Absolute Neuts (auto) 4.0 Absolute Nucleated RBC 0.000 Nucleated RBC % (auto) 0.0 Anion Gap 14 Cancelled Estim Creat Clear Calc 9.4 Cancelled Estimated GFR 10 Random Glucose Calcium 12/28/24 12/28/24 12/28/24 07:31 07:31 07:31 MCV MCH MCHC RDW Plt Count MPV Immature Gran % (Auto) Neut % (Auto) Lymph % (Auto) [place] % (Auto) Eos % (Auto) Baso % (Auto) Lymph # (Auto) [place] # (Auto) Eos # (Auto) Baso # (Auto) Abs Immat Gran (auto) Absolute Neuts (auto) Absolute Nucleated RBC Nucleated RBC % (auto) Anion Gap Estim Creat Clear Calc Estimated GFR Cancelled Random Glucose 90 Cancelled Calcium 10.4 H D Cancelled 12/28/24 12:29 MCV 85.2 MCH 28.9 MCHC 33.9 RDW 19.1 H Plt Count 145 L D MPV 12.2 Immature Gran % (Auto) Neut % (Auto) Lymph % (Auto) [place] % (Auto) Eos % (Auto) Baso % (Auto) Lymph # (Auto) [place] # (Auto) Eos # (Auto) Baso # (Auto) Abs Immat Gran (auto) Absolute Neuts (auto) Absolute Nucleated RBC 0.000 Nucleated RBC % (auto) 0.0 Anion Gap Estim Creat Clear Calc Estimated GFR Random Glucose Calcium Microbiology Microbiology Results: Microbiology 12/26/24 14:13 Blood Culture - Preliminary Blood - Venous No growth after 24 hours. 12/26/24 14:12 Blood Culture - Preliminary Blood - Venous No growth after 24 hours. 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 Pt will be admitted to the hospital for treatment and further evaluation of acute symptomatic blood loss anemia likely secondary to UGIB. Acute symptomatic blood loss anemia Likely secondary to UGIB w Hx of Esophagitis repeat Hb at 7.6 post 2 units transfusion Protonix IV b.i.d. Clear liquid diet, NPO for EGD later today GI consult Follow CBC Hypotension Improved after IVF, midodrine, and transfused 2 units PRBCs Monitor BP Community-acquired pneumonia CXR shows IMER pneumonia No sepsis continue cefepime and azithromycin, started 12/1919 ESRD On HD // Follows with [facility] consult, HD this morning Monitor on telemetry CAD Continue statin Hold aspirin d/t acute blood loss anemia Hypothyroidism Continue levothyroxine Hx of gout Continue allopurinol Full Code DVT Prophylaxis: Pneumatic compression due to acute blood loss anemia Pt will require a hospitalization overnight for treatment of?symptomatic acute blood loss anemia likely secondary to UGIB. Pt will require hospital level care for close monitoring of CBC, electrolytes, and BP with transfusion as necessary, as well as IV PPI and GI plan for EGD Quality Stroke Does the patient have a stroke diagnosis?: No VTE Prior VTE?: No VTE Risk Level:: Medical - moderate - high VTE Device Contraindication: N/A - Device Ordered VTE Drug Contraindication: Treatment Not Indicated
--- NOTE | 2024-12-28 14:28 | MHC.SHP ---
Pre-Procedural Eval Section A - 24 Hr Update-Section A only Date of Service: 12/28/24 The patient is an INPATIENT: Yes The patient has been examined within 24 hours of the surgical procedure. The History & Physical has been completed within 30 days and I have reviewed it.: Yes Section B - Complete if H&P > 30 days Chief Complaint: Acute blood loss anemia Allergies: Allergies Allergy/AdvReac Type Severity Reaction Status Date / Time No Known Allergies Allergy Mild NONE Verified 12/26/24 13:59 Plan Diagnosis/Plan: Unchanged I have reviewed the history and physical and performed a pertinent physical examination on my patient. No changes have occurred unless specified. Time Spent With Patient Time: Total time managing care of this patient today ____ minutes.
--- NOTE | 2024-12-28 15:17 | HO.ANESPROP2 ---
HPI - Anesthesia Eval Consult details Narrative: for EGD. PMFSH Active Problems Active Problems: All Active Problems Duodenitis (Acute) Esophagitis determined by endoscopy (Acute) Hematemesis (Acute) Anemia (Acute) GIB (gastrointestinal bleeding) (Acute) ESRD (end stage renal disease) (Acute) Acute blood loss anemia (Acute) Left upper lobe pneumonia (Acute) Acute on chronic anemia (Acute) Melena (Acute) MSSA bacteremia (Acute) Gram-positive bacteremia (Acute) Macrocytic anemia (Acute) Encephalopathy (Acute) Uremia (Acute) Acute on chronic kidney failure (Acute) Acute hyperkalemia (Acute) Dysphagia (Acute) Past Medical History Medical History (Updated 12/27/24 @ 12:16 by Felicitas Andre MD) ESRD (end stage renal disease) Anemia CKD (chronic kidney disease) stage 5, GFR less than 15 ml/min MSSA bacteremia Dialysis patient COVID-19 vaccine administered Renal failure COPD (chronic obstructive pulmonary disease) Thyroid disease GERD (gastroesophageal reflux disease) Elevated cholesterol PVD (peripheral vascular disease) Prostate CA HTN (hypertension) Heart attack Family History Family history of problems with anesthesia: No Surgical History Surgical History Hx of cataract surgery Hx of cystoscopy History of incision and drainage H/O colonoscopy Hx of aortic valve replacement Hx of CABG History of Problems with Anesthesia: No Social History Social History Household Members: Children Household Members Other:: son Housing: Apartment Are you a primary rn transitional care to a significant other at home: No Do you presently have visiting nurse or other home services: No Alcohol intake: never Comment: Surgeon informed that all counts were correct Patient Tobacco Use Status: Never used Tobacco e-Cigarette/Vaping Use: Never Used Second Hand Smoke Exposure: No Advance Directives Date on File: 12/05/24 service: No Current occupational status: disabled Meds Allergies Allergy/AdvReac Type Severity Reaction Status Date / Time No Known Allergies Allergy Mild NONE Verified 12/26/24 13:59 Active Medications: Current Medications Acetaminophen (Acetaminophen 325 Mg Tablet) 650 mg PO Q6H PRN PRN Reason: Pain, Mild 1-3,fever,headache Last Admin: 12/28/24 11:38 Dose: 650 mg Allopurinol (Allopurinol 100 Mg Tablet) 100 mg PO DAILY [facility] Last Admin: 12/28/24 08:29 Dose: 100 mg Atorvastatin Calcium (Atorvastatin Calcium 80 Mg Tablet) 80 mg PO BEDTIME [facility] Last Admin: 12/27/24 21:19 Dose: 80 mg Calcium Carbonate (Calcium Carbonate 750 Mg Tab.Chew) 750 mg PO Q4H PRN PRN Reason: Heartburn Cyanocobalamin (Cyanocobalamin (Vitamin B-12) 1,000 Mcg Tablet) 1,000 mcg PO DAILY [facility] Last Admin: 12/28/24 08:29 Dose: 1,000 mcg Folic Acid (Folic Acid 1 Mg Tablet) 1 mg PO DAILY [facility] Last Admin: 12/28/24 08:29 Dose: 1 mg Cefepime HCl 0.5 gm/ Sodium (Chloride) 50 mls @ 100 mls/hr IV Q24H [facility] Last Admin: 12/28/24 15:08 Dose: Not Given Azithromycin 500 mg/ Sodium (Chloride) 250 mls @ 125 mls/hr IV Q24H [facility] Last Admin: 12/28/24 15:08 Dose: Not Given Levothyroxine Sodium (Levothyroxine Sodium 50 Mcg Tablet) 50 mcg PO DAILY@0600 [facility] Last Admin: 12/28/24 06:11 Dose: 50 mcg Magnesium Hydroxide (Milk Of Magnesia 30 Ml Oral.Susp) 30 ml PO DAILY PRN PRN Reason: Constipation Melatonin (Melatonin 3 Mg Tablet) 6 mg PO BEDTIME PRN PRN Reason: Insomnia Ondansetron HCl (Ondansetron Hcl 4 Mg/2 Ml Vial) 4 mg IVPUSH Q8H PRN PRN Reason: Nausea and Vomiting Last Admin: 12/28/24 06:19 Dose: 4 mg Pantoprazole Sodium (Pantoprazole Sodium 40 Mg/10 Ml Vial) 40 mg IVPUSH BID@0630,1630 [facility] Last Admin: 12/28/24 06:11 Dose: 40 mg Sodium Chloride (0.9 % Sodium Chloride Flush 3 Ml Syringe) 3 ml IVFLUSH QSHIFT [facility] Last Admin: 12/28/24 08:29 Dose: 3 ml Sucralfate (Sucralfate 1 Gm Tablet) 1 gm PO QIDACHS [facility] Last Admin: 12/28/24 11:21 Dose: Not Given Vitamin D (Cholecalciferol (Vitamin D3) 25 Mcg Tablet) 25 mcg PO DAILY [facility] Last Admin: 12/28/24 08:29 Dose: 25 mcg Home Medications ?Medication ?Instructions ?Recorded ?Confirmed ?Last Taken ?Type allopurinol 100 mg tablet 100 mg PO DAILY 12/30/20 12/26/24 12/26/24 History aspirin 81 mg tablet,delayed 81 mg PO DAILY 12/30/20 12/26/24 12/26/24 History release atorvastatin 80 mg tablet 80 mg PO BEDTIME 12/30/20 12/26/24 12/26/24 History cholecalciferol (vitamin D3) 25 25 mcg PO DAILY 12/30/20 12/26/24 12/26/24 History mcg (1,000 unit) capsule (Vitamin D3) levothyroxine 50 mcg tablet 50 mcg PO DAILY@0600 12/30/20 12/26/24 12/26/24 History cyanocobalamin (vitamin B-12) 1,000 mcg PO DAILY 06/10/23 12/26/24 12/26/24 History 1,000 mcg tablet guaifenesin 400 mg tablet (Chest 400 mg PO Q6H PRN cough 12/04/24 12/26/24 Unknown History Congestion Relief) Exam Height,Weight and Vital Signs: Height 5 ft 9 in Weight 76.5 kg Last Vital Signs Temp 97.4 F 12/28/24 07:54 Pulse 63 12/28/24 08:14 Resp 20 12/28/24 07:54 BP 155/69 H 12/28/24 08:14 Pulse Ox 93 12/28/24 08:14 O2 Del Method Room Air 12/28/24 07:54 Pertinent Lab Results Pertinent Lab Results: Laboratory Tests 12/26/24 12/26/24 12/26/24 14:10 14:12 14:29 WBC 8.7 RBC 2.06 L D Hgb 5.9 L* D Hct 18.5 L* D MCV 89.8 MCH 28.6 MCHC 31.9 RDW 21.0 H Plt Count 136 L MPV 11.7 Immature Gran % (Auto) 0.2 Neut % (Auto) 64.1 Lymph % (Auto) 27.1 [place] % (Auto) 7.5 Eos % (Auto) 0.6 Baso % (Auto) 0.5 Lymph # (Auto) 2.4 [place] # (Auto) 0.7 Eos # (Auto) 0.1 Baso # (Auto) 0.0 Abs Immat Gran (auto) 0.02 Absolute Neuts (auto) 5.6 Absolute Nucleated RBC 0.000 Nucleated RBC % (auto) 0.0 Smear Path Review SEE NOTE Sodium 139 Potassium 3.4 D Chloride 98 Carbon Dioxide 33 H Anion Gap 11 L BUN 34 H Creatinine 3.42 H Estim Creat Clear Calc 15.7 Estimated GFR 17 Random Glucose 98 Lactic Acid 1.6 Calcium 9.2 D Magnesium 1.6 Total Bilirubin 0.5 Direct Bilirubin 0.1 AST 24 ALT 8 Alkaline Phosphatase 57 Troponin I High Sens 31.8 C-Reactive Protein 2.58 H B-Natriuretic Peptide 249 H Total Protein 5.8 L Albumin 2.8 L Lipase 41 Stool Occult Blood NEGATIVE Influenza Type A (PCR) NEGATIVE Influenza Type B (PCR) NEGATIVE RSV RNA Qual (PCR) NEGATIVE SARS-CoV-2 RNA (RT-PCR) NEGATIVE Blood Type A Positive Antibody Screen NEGATIVE Crossmatch See Detail 12/26/24 12/27/24 12/28/24 18:58 04:21 07:31 WBC 8.5 6.9 RBC 2.52 L D 2.49 L Hgb 7.2 L D 7.2 L Hct 21.6 L 21.7 L MCV 85.7 87.1 MCH 28.6 28.9 MCHC 33.3 33.2 RDW 19.0 H 19.2 H Plt Count 95 L D 103 L MPV Not Reportable 12.8 H Immature Gran % (Auto) 0.3 Neut % (Auto) 58.5 Lymph % (Auto) 27.5 [place] % (Auto) 8.9 Eos % (Auto) 4.2 H Baso % (Auto) 0.6 Lymph # (Auto) 1.9 [place] # (Auto) 0.6 Eos # (Auto) 0.3 Baso # (Auto) 0.0 Abs Immat Gran (auto) 0.02 Absolute Neuts (auto) 4.0 Absolute Nucleated RBC 0.000 0.000 Nucleated RBC % (auto) 0.0 0.0 Smear Path Review Sodium 140 138 Potassium 3.9 Chloride 101 Carbon Dioxide 29 Anion Gap 14 BUN 49 H Creatinine 4.06 H* Estim Creat Clear Calc 13.3 Estimated GFR 14 Random Glucose 79 Lactic Acid Calcium 9.6 Magnesium Total Bilirubin Direct Bilirubin AST ALT Alkaline Phosphatase Troponin I High Sens C-Reactive Protein B-Natriuretic Peptide Total Protein Albumin Lipase Stool Occult Blood POSITIVE Influenza Type A (PCR) Influenza Type B (PCR) RSV RNA Qual (PCR) SARS-CoV-2 RNA (RT-PCR) Blood Type Antibody Screen Crossmatch 12/28/24 12/28/24 12/28/24 07:31 07:31 07:31 WBC RBC Hgb Hct MCV MCH MCHC RDW Plt Count MPV Immature Gran % (Auto) Neut % (Auto) Lymph % (Auto) [place] % (Auto) Eos % (Auto) Baso % (Auto) Lymph # (Auto) [place] # (Auto) Eos # (Auto) Baso # (Auto) Abs Immat Gran (auto) Absolute Neuts (auto) Absolute Nucleated RBC Nucleated RBC % (auto) Smear Path Review Sodium Cancelled Potassium 4.0 Cancelled Chloride 100 Cancelled Carbon Dioxide 28 Anion Gap BUN Creatinine Estim Creat Clear Calc Estimated GFR Random Glucose Lactic Acid Calcium Magnesium Total Bilirubin Direct Bilirubin AST ALT Alkaline Phosphatase Troponin I High Sens C-Reactive Protein B-Natriuretic Peptide Total Protein Albumin Lipase Stool Occult Blood Influenza Type A (PCR) Influenza Type B (PCR) RSV RNA Qual (PCR) SARS-CoV-2 RNA (RT-PCR) Blood Type Antibody Screen Crossmatch 12/28/24 12/28/24 12/28/24 07:31 07:31 07:31 WBC RBC Hgb Hct MCV MCH MCHC RDW Plt Count MPV Immature Gran % (Auto) Neut % (Auto) Lymph % (Auto) [place] % (Auto) Eos % (Auto) Baso % (Auto) Lymph # (Auto) [place] # (Auto) Eos # (Auto) Baso # (Auto) Abs Immat Gran (auto) Absolute Neuts (auto) Absolute Nucleated RBC Nucleated RBC % (auto) Smear Path Review Sodium Potassium Chloride Carbon Dioxide Cancelled Anion Gap 14 Cancelled BUN 66 H Cancelled Creatinine 5.69 H* Estim Creat Clear Calc Estimated GFR Random Glucose Lactic Acid Calcium Magnesium Total Bilirubin Direct Bilirubin AST ALT Alkaline Phosphatase Troponin I High Sens C-Reactive Protein B-Natriuretic Peptide Total Protein Albumin Lipase Stool Occult Blood Influenza Type A (PCR) Influenza Type B (PCR) RSV RNA Qual (PCR) SARS-CoV-2 RNA (RT-PCR) Blood Type Antibody Screen Crossmatch 12/28/24 12/28/24 12/28/24 07:31 07:31 07:31 WBC RBC Hgb Hct MCV MCH MCHC RDW Plt Count MPV Immature Gran % (Auto) Neut % (Auto) Lymph % (Auto) [place] % (Auto) Eos % (Auto) Baso % (Auto) Lymph # (Auto) [place] # (Auto) Eos # (Auto) Baso # (Auto) Abs Immat Gran (auto) Absolute Neuts (auto) Absolute Nucleated RBC Nucleated RBC % (auto) Smear Path Review Sodium Potassium Chloride Carbon Dioxide Anion Gap BUN Creatinine Cancelled Estim Creat Clear Calc 9.4 Cancelled Estimated GFR 10 Cancelled Random Glucose 90 Lactic Acid Calcium Magnesium Total Bilirubin Direct Bilirubin AST ALT Alkaline Phosphatase Troponin I High Sens C-Reactive Protein B-Natriuretic Peptide Total Protein Albumin Lipase Stool Occult Blood Influenza Type A (PCR) Influenza Type B (PCR) RSV RNA Qual (PCR) SARS-CoV-2 RNA (RT-PCR) Blood Type Antibody Screen Crossmatch 12/28/24 12/28/24 12/28/24 07:31 07:31 12:29 WBC 6.5 RBC 2.63 L Hgb 7.6 L Hct 22.4 L MCV 85.2 MCH 28.9 MCHC 33.9 RDW 19.1 H Plt Count 145 L D MPV 12.2 Immature Gran % (Auto) Neut % (Auto) Lymph % (Auto) [place] % (Auto) Eos % (Auto) Baso % (Auto) Lymph # (Auto) [place] # (Auto) Eos # (Auto) Baso # (Auto) Abs Immat Gran (auto) Absolute Neuts (auto) Absolute Nucleated RBC 0.000 Nucleated RBC % (auto) 0.0 Smear Path Review Sodium Potassium Chloride Carbon Dioxide Anion Gap BUN Creatinine Estim Creat Clear Calc Estimated GFR Random Glucose Cancelled Lactic Acid Calcium 10.4 H D Cancelled Magnesium Total Bilirubin Direct Bilirubin AST ALT Alkaline Phosphatase Troponin I High Sens C-Reactive Protein B-Natriuretic Peptide Total Protein Albumin Lipase Stool Occult Blood Influenza Type A (PCR) Influenza Type B (PCR) RSV RNA Qual (PCR) SARS-CoV-2 RNA (RT-PCR) Blood Type Antibody Screen Crossmatch Airway Mallampati Class: II TM Dist: >3cm Neck ROM: Full Denture: Upper and Lower Heart: ok Lungs: ok Assessment and Plan Assessment Anesthesia Assessment: Anesthesia Plan Discussed and Chart Reviewed Final Anesthetic Review Family History of Problems with Anesthesia: No History of Problems with Anesthesia: No NPO: Yes ASA Class: IV Final Preanesthetic Review: No Changes in Pt Med Stat, Meds/Allgs Chart Reviewed, Consent Obtained/Reviewed and Anes Risks/Benef Reviewed Patient Risk: High Procedure Risk: Intermediate Anesthetic Plan Anesthetic Plan: Agree w/ Assess. and Plan and TIVA Disposition: Standard PACU
--- NOTE | 2024-12-28 16:43 | P.OP_ITS ---
Operative Note Operative Note Date of Service: 12/28/24 Narrative: Procedure: Esophagogastroduodenoscopy Endoscopist: Felicitas Andre MD Indication: N/V Anesthesia Provider: Dr Nikunj Graham Anesthesia Type: MAC ?? EGD Procedure:?? The procedure, indications, preparation and potential complications were reviewed with the patient with the help of horses or mules teamster, who indicated understanding and gave written informed consent to proceed. A physical exam was performed. A distal attachment was affixed to the tip of the scope and the endoscope was introduced through the mouth, and advanced to the second part of duodenum. The mucosa was carefully examined on slow withdrawal of the endoscope. The patient tolerated the procedure well. There were no immediate complications.? ? EGD Findings:? * Esophagus:? Normal mucosa noted in the entire esophagus. The Z line was at 38 cm displaced upwards by a hiatal hernia with the diaphragmatic pinch at 42 cm. * Stomach:? Mild erythema and erosions noted in antrum. Retroflexion was performed in the cardia that showed Hill grade IV hiatal hernia. * Duodenum:? There was a 2 cm polypoid mass with a central ulceration originating from anterior inferior duodenal bulb, intussuscepting in and out of pylorus causing partial gastric outlet obstruction. Cold forceps biopsies were taken from this polypoid mass. Remaining mucosa was noted in the whole of the examined duodenum. Additional intervention: Due to persistent N/V likely from partial GOO as above, an endoscopically guided 16Fr NG tube was placed till antrum and affixed at the L nare. EGD Impressions:? * Normal esophagus * Hiatal hernia * Mild gastritis * Polypoid duodenal mass (biopsy) ?? Recommendations:?? * Kindly attach NGT to intermittent wall suction * Recommend upper GI series. * Follow biopsy results. Will likely need surgical evaluation. Above has been reviewed with the patient.
--- NOTE | 2024-12-28 18:08 | PC.NURSE ---
NG tube connected to intermittent wall suction , as per GI physician and DR Sargent
[2024-12-28 18:22] LABS: Glucose, Whole Blood 76 mg/dL (60-115)
--- NOTE | 2024-12-28 18:34 | PC.NURSE ---
alert oriented s/p upper ENDO , NGtube to intermittent wall sxn, NPO, blood sugar 76, DR Sargent updated on pt's status, MD will order debra IV hydration ,
[2024-12-28] MEDS: Dextrose 5 % and 0.9 % NaCl 1,000 ML 70 ML IVCONT (18:46)
[2024-12-28] MEDS: Atorvastatin Calcium 80 MG TABLET PO (22:28)
[2024-12-29 04:00] VITALS: BP 133/58; PULSE 63; RESP 14; TEMP 36.6; O2SAT 96
[2024-12-29] MEDS: Levothyroxine Sodium 50 MCG TABLET PO (05:14)
[2024-12-29] MEDS: Pantoprazole Sodium 40 MG/10 ML VIAL IVPUSH ×2 (05:14→16:47)
[2024-12-29 07:00] LABS: MANUAL DIFF FLAG NO
[2024-12-29 07:02] VITALS: BP 140/64; PULSE 78; RESP 20; TEMP 37.2; O2SAT 94
[2024-12-29 07:15] LABS: Basophils Absolute Auto 0.1 X10*3/uL (0.0-0.2); Basophils Percent Auto 0.9 % (0-2); Eosinophils Absolute Auto 0.1 X10*3/uL (0.0-0.4); Eosinophils Percent Auto 2.6 % (0-4); Hematocrit 22.2 % (42.0-52.0); Hemoglobin 7.3 g/dl (14.0-18.0); Imm Gran Abs Auto 0.02 X10*3/uL (0.00-0.03); Imm Gran Pct Auto 0.4 % (0.0-0.4); Lymphocytes Absolute Auto 1.4 X10*3/uL (1.2-4.9); Lymphocytes Percent Auto 25.6 % (20-40); Mean Corpuscular HGB Conc 32.9 g/dl (31.0-36.0); Mean Corpuscular Hemoglobin 28.9 pg (27.0-33.0); Mean Corpuscular Volume 87.7 fL (80.0-98.0); Mean Platelet Volume 11.4 fL (9.4-12.4); Monocytes Absolute Auto 0.6 X10*3/uL (0.1-1.2); Monocytes Percent Auto 10.5 % (2-11); Neutrophils Absolute Auto 3.2 x10*3/uL (2.0-8.3); Platelet Count 105 X10*3/uL (160-400); Red Blood Count 2.53 X10*6/uL (4.60-5.80); Red Cell Distribution Width 19.2 % (11.0-16.0); White Blood Count 5.3 X10*3/uL (4.8-10.8)
[2024-12-29 07:35] LABS: Anion Gap 10 (12-20); Blood Urea Nitrogen 26 mg/dL (9-16); Calcium 9.6 mg/dL (8.4-10.2); Carbon Dioxide 30 mmol/L (22-29); Chloride 104 mmol/L (96-108); Creatinine Clr Calc Pharmacy 14.8; Estimated Glomerular Filt Rate 16; Glucose Random 86 mg/dL (60-115); Potassium 3.4 mmol/L (3.3-5.1); Sodium 141 mmol/L (135-145)
--- NOTE | 2024-12-29 09:07 | PM.CNGS ---
History of Present Illness Consult details Consult date: 12/29/24 Requesting physician: Estefany Sargent Narrative: 84-year-old male patient with past medical history of end-stage renal disease, on hemodialysis Tuesday/Tuesday/Tuesday, CVA in 1998, left hemiparesis, hypothyroidism, GERD, anemia of chronic disease, gout, suprarenal abdominal aortic aneurysm admitted to the hospitalist service with episodes of nausea and vomiting. His regularly scheduled hemodialysis was held after 2 hours because of hypotension. Patient noted dark colored stool for several days prior therefore was sent to the emergency department for further evaluation. Patient subsequently underwent an EGD on 12/28/2024. Findings included a 2 cm polypoid mass with a central ulceration originating from the anterior/inferior duodenal bulb, intussusception in and out of the pylorus causing partial gastric outlet obstruction. A cold forceps biopsy of the polypoid mass was taken. Pathology results and upper GI series are pending. Surgical consultation was requested for management of the polypoid mass/gastric outlet obstruction. Review of Systems Review of Systems: Yes Unobtainable due to mental condition PMFSH Past Medical History Medical History ESRD (end stage renal disease) Anemia CKD (chronic kidney disease) stage 5, GFR less than 15 ml/min MSSA bacteremia Dialysis patient COVID-19 vaccine administered Renal failure COPD (chronic obstructive pulmonary disease) Thyroid disease GERD (gastroesophageal reflux disease) Elevated cholesterol PVD (peripheral vascular disease) Prostate CA HTN (hypertension) Heart attack Surgical History Surgical History Hx of cataract surgery Hx of cystoscopy History of incision and drainage H/O colonoscopy Hx of aortic valve replacement Hx of CABG Social History Social History Household Members: Children Household Members Other:: son Housing: Apartment Are you a primary child day care provider to a significant other at home: No Do you presently have visiting nurse or other home services: No Alcohol intake: never Comment: Surgeon informed that all counts were correct Patient Tobacco Use Status: Never used Tobacco e-Cigarette/Vaping Use: Never Used Second Hand Smoke Exposure: No Advance Directives Date on File: 12/05/24 service: No Current occupational status: disabled Meds Allergies Allergy/AdvReac Type Severity Reaction Status Date / Time No Known Allergies Allergy Mild NONE Verified 12/26/24 13:59 Active Medications: Current Medications Acetaminophen (Acetaminophen 325 Mg Tablet) 650 mg PO Q6H PRN PRN Reason: Pain, Mild 1-3,fever,headache Last Admin: 12/28/24 11:38 Dose: 650 mg Allopurinol (Allopurinol 100 Mg Tablet) 100 mg PO DAILY [facility] Last Admin: 12/28/24 08:29 Dose: 100 mg Atorvastatin Calcium (Atorvastatin Calcium 80 Mg Tablet) 80 mg PO BEDTIME [facility] Last Admin: 12/28/24 22:28 Dose: 80 mg Calcium Carbonate (Calcium Carbonate 750 Mg Tab.Chew) 750 mg PO Q4H PRN PRN Reason: Heartburn Cyanocobalamin (Cyanocobalamin (Vitamin B-12) 1,000 Mcg Tablet) 1,000 mcg PO DAILY [facility] Last Admin: 12/28/24 08:29 Dose: 1,000 mcg Folic Acid (Folic Acid 1 Mg Tablet) 1 mg PO DAILY [facility] Last Admin: 12/28/24 08:29 Dose: 1 mg Cefepime HCl 0.5 gm/ Sodium (Chloride) 50 mls @ 100 mls/hr IV Q24H [facility] Last Admin: 12/28/24 15:08 Dose: Not Given Azithromycin 500 mg/ Sodium (Chloride) 250 mls @ 125 mls/hr IV Q24H [facility] Last Admin: 12/28/24 15:08 Dose: Not Given Dextrose/Lactated Ringer's (D5lr) 1,000 mls @ 80 mls/hr IVCONT .[id number] [facility] Levothyroxine Sodium (Levothyroxine Sodium 50 Mcg Tablet) 50 mcg PO DAILY@0600 [facility] Last Admin: 12/29/24 05:14 Dose: 50 mcg Magnesium Hydroxide (Milk Of Magnesia 30 Ml Oral.Susp) 30 ml PO DAILY PRN PRN Reason: Constipation Melatonin (Melatonin 3 Mg Tablet) 6 mg PO BEDTIME PRN PRN Reason: Insomnia Naloxone HCl (Naloxone Hcl 0.4 Mg/Ml Vial) 0.04 mg IVPUSH Q5M PRN PRN Reason: Excessive sedation or RR < 8 Ondansetron HCl (Ondansetron Hcl 4 Mg/2 Ml Vial) 4 mg IVPUSH Q8H PRN PRN Reason: Nausea and Vomiting Last Admin: 12/28/24 15:52 Dose: 4 mg Pantoprazole Sodium (Pantoprazole Sodium 40 Mg/10 Ml Vial) 40 mg IVPUSH BID@0630,1630 [facility] Last Admin: 12/29/24 05:14 Dose: 40 mg Sodium Chloride (0.9 % Sodium Chloride Flush 3 Ml Syringe) 3 ml IVFLUSH QSHIFT [facility] Last Admin: 12/28/24 21:03 Dose: Not Given Sucralfate (Sucralfate 1 Gm Tablet) 1 gm PO QIDACHS [facility] Last Admin: 12/28/24 22:31 Dose: 1 gm Vitamin D (Cholecalciferol (Vitamin D3) 25 Mcg Tablet) 25 mcg PO DAILY [facility] Last Admin: 12/28/24 08:29 Dose: 25 mcg Home Medications ?Medication ?Instructions ?Recorded ?Confirmed ?Last Taken ?Type allopurinol 100 mg tablet 100 mg PO DAILY 12/30/20 12/26/24 12/26/24 History aspirin 81 mg tablet,delayed 81 mg PO DAILY 12/30/20 12/26/24 12/26/24 History release atorvastatin 80 mg tablet 80 mg PO BEDTIME 12/30/20 12/26/24 12/26/24 History cholecalciferol (vitamin D3) 25 25 mcg PO DAILY 12/30/20 12/26/24 12/26/24 History mcg (1,000 unit) capsule (Vitamin D3) levothyroxine 50 mcg tablet 50 mcg PO DAILY@0600 12/30/20 12/26/24 12/26/24 History cyanocobalamin (vitamin B-12) 1,000 mcg PO DAILY 06/10/23 12/26/24 12/26/24 History 1,000 mcg tablet guaifenesin 400 mg tablet (Chest 400 mg PO Q6H PRN cough 12/04/24 12/26/24 Unknown History Congestion Relief) Physical Exam Vital Signs: Vital Signs: Last Vital Signs Temp 98.9 F 12/29/24 07:02 Pulse 78 12/29/24 07:02 Resp 20 12/29/24 07:02 BP 140/64 H 12/29/24 07:02 Pulse Ox 94 12/29/24 07:02 O2 Del Method Room Air 12/29/24 07:02 O2 Flow Rate 2 12/28/24 16:53 BMI result Body Mass Index 24.9 Const: General: alert Nutritional Appearance: thin Resp: Effort & Inspection: normal respiratory effort, no audible wheezes, no cough and no respiratory distress GI: Inspection: No distended Palpation (GI): Soft to palpation, nontender, no guarding and not rigid Percussion: Yes normal to percussion Skin: Other: Warm, dry Extrem: General: No edema Results Labs 12/29/24 06:36 12/29/24 06:36 Labs: Abnormal lab results 12/28/24 12/29/24 Range/Units 12:29 06:36 RBC 2.63 L 2.53 L (4.60-5.80) X10*6/uL Hgb 7.6 L 7.3 L (14.0-18.0) g/dl Hct 22.4 L 22.2 L (42.0-52.0) % RDW 19.1 H 19.2 H (11.0-16.0) % Plt Count 145 L D 105 L D (160-400) X10*3/uL Carbon Dioxide 30 H (22-29) mmol/L Anion Gap 10 L (12-20) BUN 26 H (9-16) mg/dL Creatinine 3.63 H (0.5-1.4) mg/dL Short CBC 12/28/24 12/29/24 Range/Units 12:29 06:36 WBC 6.5 5.3 (4.8-10.8) X10*3/uL Hgb 7.6 L 7.3 L (14.0-18.0) g/dl Hct 22.4 L 22.2 L (42.0-52.0) % Plt Count 145 L D 105 L D (160-400) X10*3/uL BMP 12/29/24 06:36 Sodium 141 Potassium 3.4 Chloride 104 Carbon Dioxide 30 H BUN 26 H Creatinine 3.63 H Calcium 9.6 D All other labs normal. Assessment and Plan (1) Duodenal mass: Status: Acute Plan 84-year-old male patient presenting with hypotension, melena, and found to have a possible gastric outlet obstruction due to intussusception duodenal mass within the bulb. Patient underwent EGD with biopsies, the pathology of which is pending. A previous EGD revealed erosive esophagitis, atrophic gastritis, and erosive duodenitis. We will await pathology results and upper GI studies. Options include local resection, bypass with gastrojejunostomy, or nonoperative management based on the pathologic results. Surgical intervention may be difficult given the patient's advanced age and multiple medical issues. Procedures Date of Service Date of Service: 12/29/24
[2024-12-29] MEDS: Cholecalciferol (Vitamin D3) 25 MCG TABLET PO (09:36)
[2024-12-29] MEDS: allopurinoL 100 MG TABLET PO (09:36)
[2024-12-29] MEDS: Sucralfate 1 GM TABLET PO ×4 (09:36→19:49)
[2024-12-29] MEDS: Cyanocobalamin (Vitamin B-12) 1,000 MCG TABLET 1000 MCG PO (09:36)
[2024-12-29] MEDS: Folic Acid 1 MG TABLET PO (09:36)
[2024-12-29] MEDS: Dextrose 5 % and Lactated Ring 1,000 ML 80 ML IVCONT ×2 (09:46→21:50)
--- NOTE | 2024-12-29 10:40 | PC.NURSE ---
Addendum entered by Berta Torres RN 12/29/24 17:39: NGT removed at 1340. tolerated well. tolerating clear liquid diet at this time with no reports of N/V or abd pain. 1455 on monitor pts HR dropping to 30s with wenchebach while sleeping, per MD no interventions at this time Original Note: on monitor pt found to have occasional wenckebach with several PVCs, MT notified cardiology. Dr. ybarra notified.
[2024-12-29 11:05] VITALS: BP 139/66; PULSE 57; RESP 18; TEMP 36.7; O2SAT 98
--- NOTE | 2024-12-29 15:03 | HO.POSTANES ---
Post Anesthesia Evaluation Post Anesthesia Evaluation Date of Service: 12/29/24 Vital Signs: Vital Signs Temp Pulse Resp BP Pulse Ox O2 Del Method 12/29/24 11:05 98.0 F 57 18 139/66 98 Room Air 12/29/24 07:02 98.9 F 78 20 140/64 H 94 Room Air 12/29/24 04:00 97.9 F 63 14 133/58 L 96 Room Air Anesthesia: TIVA Mental Status: Awake Pain Control: Satisfactory Nausea/Vomiting: None Hydration: Adequate Anesthesia-Related Issues: No Anes. Related Issues
--- NOTE | 2024-12-29 15:28 | HO.PM.IMPN ---
Subjective Subjective Date of Service: 12/29/24 Interval History: Seen and evaluated this morning looks comfortable NG tube in place no other events Review of Systems Review of Systems: Yes all other systems are reviewed and are negative Physical Exam Vital Signs: Vital Signs: Last Vital Signs Temp 98.0 F 12/29/24 11:05 Pulse 57 12/29/24 11:05 Resp 18 12/29/24 11:05 BP 139/66 12/29/24 11:05 Pulse Ox 98 12/29/24 11:05 O2 Del Method Room Air 12/29/24 11:05 O2 Flow Rate 2 12/28/24 16:53 BMI result Body Mass Index 24.9 Const: Other: Constitutional : Awake, interactive, not in distress Neck : Normal inspection, Supple, Cardiovascular : RRR, no JVP, no lower extremity edema Respiratory : good bilateral air entry, no crackles, wheezes or rhonchi Gastrointestinal: soft, lax, Normal bowel sounds, Non tender, NG tube on wall suction Skin : Warm, Dry Neurological : Alert & oriented x3, No focal deficit Objective Data Active Medications Acetaminophen (Acetaminophen 325 Mg Tablet) 650 mg PO Q6H PRN PRN Reason: Pain, Mild 1-3,fever,headache Last Admin: 12/28/24 11:38 Dose: 650 mg Documented By: PAULO Allopurinol (Allopurinol 100 Mg Tablet) 100 mg PO DAILY [facility] Last Admin: 12/29/24 09:36 Dose: 100 mg Documented By: ALESSANDRA Atorvastatin Calcium (Atorvastatin Calcium 80 Mg Tablet) 80 mg PO BEDTIME [facility] Last Admin: 12/28/24 22:28 Dose: 80 mg Documented By: VICKIE Calcium Carbonate (Calcium Carbonate 750 Mg Tab.Chew) 750 mg PO Q4H PRN PRN Reason: Heartburn Cyanocobalamin (Cyanocobalamin (Vitamin B-12) 1,000 Mcg Tablet) 1,000 mcg PO DAILY [facility] Last Admin: 12/29/24 09:36 Dose: 1,000 mcg Documented By: ALESSANDRA Folic Acid (Folic Acid 1 Mg Tablet) 1 mg PO DAILY [facility] Last Admin: 12/29/24 09:36 Dose: 1 mg Documented By: ALESSANDRA Cefepime HCl 0.5 gm/ Sodium (Chloride) 50 mls @ 100 mls/hr IV Q24H [facility] Last Admin: 12/28/24 15:08 Dose: Not Given Documented By: PAULO Non-Admin Reason: off floor Azithromycin 500 mg/ Sodium (Chloride) 250 mls @ 125 mls/hr IV Q24H [facility] Last Admin: 12/28/24 15:08 Dose: Not Given Documented By: PAULO Non-Admin Reason: off floor Dextrose/Lactated Ringer's (D5lr) 1,000 mls @ 80 mls/hr IVCONT .[id number] [facility] Last Admin: 12/29/24 09:46 Dose: 80 mls/hr Documented By: ALESSANDRA Levothyroxine Sodium (Levothyroxine Sodium 50 Mcg Tablet) 50 mcg PO DAILY@0600 [facility] Last Admin: 12/29/24 05:14 Dose: 50 mcg Documented By: VICKIE Magnesium Hydroxide (Milk Of Magnesia 30 Ml Oral.Susp) 30 ml PO DAILY PRN PRN Reason: Constipation Melatonin (Melatonin 3 Mg Tablet) 6 mg PO BEDTIME PRN PRN Reason: Insomnia Naloxone HCl (Naloxone Hcl 0.4 Mg/Ml Vial) 0.04 mg IVPUSH Q5M PRN PRN Reason: Excessive sedation or RR < 8 Ondansetron HCl (Ondansetron Hcl 4 Mg/2 Ml Vial) 4 mg IVPUSH Q8H PRN PRN Reason: Nausea and Vomiting Last Admin: 12/28/24 15:52 Dose: 4 mg Documented By: YVONNE Pantoprazole Sodium (Pantoprazole Sodium 40 Mg/10 Ml Vial) 40 mg IVPUSH BID@0630,1630 [facility] Last Admin: 12/29/24 05:14 Dose: 40 mg Documented By: VICKIE Sodium Chloride (0.9 % Sodium Chloride Flush 3 Ml Syringe) 3 ml IVFLUSH QSHIFT [facility] Last Admin: 12/29/24 09:32 Dose: Not Given Documented By: ALESSANDRA Non-Admin Reason: IV Running Sucralfate (Sucralfate 1 Gm Tablet) 1 gm PO QIDACHS [facility] Last Admin: 12/29/24 13:48 Dose: 1 gm Documented By: ALESSANDRA Vitamin D (Cholecalciferol (Vitamin D3) 25 Mcg Tablet) 25 mcg PO DAILY [facility] Last Admin: 12/29/24 09:36 Dose: 25 mcg Documented By: STEVENAV Labs 12/29/24 06:36 12/29/24 06:36 Labs: Laboratory Results - last 24 hr 12/28/24 12/29/24 18:18 06:36 MCV 87.7 MCH 28.9 MCHC 32.9 RDW 19.2 H Plt Count 105 L D MPV 11.4 Immature Gran % (Auto) 0.4 Neut % (Auto) 60.0 Lymph % (Auto) 25.6 Hood % (Auto) 10.5 Eos % (Auto) 2.6 Baso % (Auto) 0.9 Lymph # (Auto) 1.4 Hood # (Auto) 0.6 Eos # (Auto) 0.1 Baso # (Auto) 0.1 Abs Immat Gran (auto) 0.02 Absolute Neuts (auto) 3.2 Absolute Nucleated RBC 0.000 Nucleated RBC % (auto) 0.0 Anion Gap 10 L Estim Creat Clear Calc 14.8 Estimated GFR 16 POC Glucose 76 Random Glucose 86 Calcium 9.6 D Microbiology Microbiology Results: Microbiology 12/26/24 14:13 Blood Culture - Preliminary Blood - Venous No growth after 48 hours. 12/26/24 14:12 Blood Culture - Preliminary Blood - Venous No growth after 48 hours. 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 Pt will be admitted to the hospital for treatment and further evaluation of acute symptomatic blood loss anemia likely secondary to UGIB. Acute symptomatic blood loss anemia secondary to UGIB from ulcerated duodenal ulcerated mass Hb stable at 7.3 post 2 units transfusion EGD showed duodenal mass with ulceration and partial obstruction of stomach outlet, NG tube placed on suction Pathology pending No output in NG overnight , to DC GI series pending on Tuesday Protonix IV b.i.d. Start Clear liquid diet, Surgery input appreciated, wait pathology results and upper GI studies. Options include local resection, bypass with gastrojejunostomy, or nonoperative management based on the pathologic results. GI following Hypotension resolved after IVF, midodrine, and transfused 2 units PRBCs Monitor BP Community-acquired pneumonia CXR shows IMER pneumonia No sepsis continue cefepime and azithromycin, started 12/26 ESRD On HD M// Follows with [facility] Nephrology consulted Monitor on telemetry CAD Continue statin Hold aspirin d/t acute blood loss anemia Hypothyroidism Continue levothyroxine Hx of gout Continue allopurinol Full Code DVT Prophylaxis: Pneumatic compression due to acute blood loss anemia Pt will require a hospitalization overnight for treatment of?symptomatic acute blood loss anemia likely secondary to UGIB. Pt will require hospital level care for close monitoring of CBC, electrolytes, and BP with transfusion as necessary, as well as IV PPI and GI and surgery follow up Quality Stroke Does the patient have a stroke diagnosis?: No VTE Prior VTE?: No VTE Risk Level:: Medical - moderate - high VTE Device Contraindication: N/A - Device Ordered VTE Drug Contraindication: Treatment Not Indicated
[2024-12-29 15:36] VITALS: BP 128/60; PULSE 69; RESP 16; TEMP 36.6; O2SAT 97
[2024-12-29] MEDS: cefEPime HCl 0.5 GM in 0.9 % Sodium Chloride 50 ML IV (16:47)
[2024-12-29] MEDS: 0.9 % Sodium Chloride Flush 3 ML SYRINGE IVFLUSH (16:50)
[2024-12-29] MEDS: Azithromycin 500 MG in 0.9 % Sodium Chloride 250 ML 125 MG IV (17:45)
[2024-12-29 19:42] VITALS: BP 129/60; PULSE 66; RESP 16; TEMP 37.1; O2SAT 93
[2024-12-29] MEDS: Atorvastatin Calcium 80 MG TABLET PO (19:49)
[2024-12-30] VITALS (14 sets, daily range): BP systolic 121–165; BP diastolic 53–74; PULSE 57–66; RESP 16–19; TEMP 36.4–37.1; O2SAT 94–98
[2024-12-30] MEDS: Pantoprazole Sodium 40 MG/10 ML VIAL IVPUSH ×3 (05:41→17:35)
[2024-12-30] MEDS: Levothyroxine Sodium 50 MCG TABLET PO (05:43)
[2024-12-30 08:48] LABS: Mean Corpuscular HGB Conc 30.9 g/dl (31.0-36.0); Mean Corpuscular Volume 93.8 fL (80.0-98.0); Mean Platelet Volume 11.3 fL (9.4-12.4); Red Blood Count 1.76 X10*6/uL (4.60-5.80); Red Cell Distribution Width 19.1 % (11.0-16.0); White Blood Count 3.6 X10*3/uL (4.8-10.8)
[2024-12-30 09:03] LABS: Platelet Count 86 X10*3/uL (160-400)
[2024-12-30 09:10] LABS: Hematocrit 16.5 % (42.0-52.0); Hemoglobin 5.1 g/dl (14.0-18.0)
[2024-12-30] MEDS: Sucralfate 1 GM TABLET PO ×4 (09:42→21:47)
[2024-12-30] MEDS: 0.9 % Sodium Chloride Flush 3 ML SYRINGE IVFLUSH ×2 (09:42→17:35)
[2024-12-30] MEDS: Cholecalciferol (Vitamin D3) 25 MCG TABLET PO (09:42)
[2024-12-30] MEDS: allopurinoL 100 MG TABLET PO (09:42)
[2024-12-30] MEDS: Cyanocobalamin (Vitamin B-12) 1,000 MCG TABLET 1000 MCG PO (09:42)
[2024-12-30] MEDS: Folic Acid 1 MG TABLET PO (09:42)
[2024-12-30] MEDS: Dextrose 5 % and Lactated Ring 1,000 ML 80 ML IVCONT (09:44)
[2024-12-30] MEDS: guaiFENesin LA 600 MG TAB.ER.12H PO ×2 (09:49→21:48)
[2024-12-30 11:05] LABS: Influenza A PCR NEGATIVE (Negative); Influenza B PCR NEGATIVE (Negative); Resp Syncy Virus RNA Qual PCR NEGATIVE (Negative); SARS COV2 PCR INHOUSE NEGATIVE (Negative)
--- NOTE | 2024-12-30 11:33 | P.PNIM_ITS ---
Subjective Subjective Date of Service: 12/30/24 Interval History: Seen and evaluated this morning looks comfortable NG tube removed Hb dropped to 5.1 CXR concerning for possible dilatation in aortic arch aneurysm no other events Review of Systems Review of Systems: Yes all other systems are reviewed and are negative Physical Exam 2 Vital Signs: Vital Signs: Last Vital Signs Temp 98.8 F 12/30/24 11:16 Pulse 65 12/30/24 11:16 Resp 19 12/30/24 11:16 BP 121/53 L 12/30/24 11:16 Pulse Ox 96 12/30/24 11:16 O2 Del Method Room Air 12/30/24 11:16 O2 Flow Rate 2 12/28/24 16:53 BMI result Body Mass Index 24.9 Const: Other: Constitutional : Awake, interactive, not in distress Neck : Normal inspection, Supple, Cardiovascular : RRR, no JVP, no lower extremity edema Respiratory : good bilateral air entry, no crackles, wheezes or rhonchi Gastrointestinal: soft, lax, Normal bowel sounds, Non tender, NG tube on wall suction Skin : Warm, Dry Neurological : Alert & oriented x3, No focal deficit Objective Data Active Medications Acetaminophen (Acetaminophen 325 Mg Tablet) 650 mg PO Q6H PRN PRN Reason: Pain, Mild 1-3,fever,headache Last Admin: 12/28/24 11:38 Dose: 650 mg Documented By: PAULO Allopurinol (Allopurinol 100 Mg Tablet) 100 mg PO DAILY [facility] Last Admin: 12/30/24 09:42 Dose: 100 mg Documented By: ROEL Atorvastatin Calcium (Atorvastatin Calcium 80 Mg Tablet) 80 mg PO BEDTIME [facility] Last Admin: 12/29/24 19:49 Dose: 80 mg Documented By: VICKIE Calcium Carbonate (Calcium Carbonate 750 Mg Tab.Chew) 750 mg PO Q4H PRN PRN Reason: Heartburn Cyanocobalamin (Cyanocobalamin (Vitamin B-12) 1,000 Mcg Tablet) 1,000 mcg PO DAILY [facility] Last Admin: 12/30/24 09:42 Dose: 1,000 mcg Documented By: ROEL Folic Acid (Folic Acid 1 Mg Tablet) 1 mg PO DAILY [facility] Last Admin: 12/30/24 09:42 Dose: 1 mg Documented By: ROEL Guaifenesin (Guaifenesin La 600 Mg Tab.Er.12h) 600 mg PO BID [facility] Last Admin: 12/30/24 09:49 Dose: 600 mg Documented By: ROEL Cefepime HCl 0.5 gm/ Sodium (Chloride) 50 mls @ 100 mls/hr IV Q24H [facility] Last Infusion: 12/29/24 17:43 Dose: Infused Documented By: RICCIAV Azithromycin 500 mg/ Sodium (Chloride) 250 mls @ 125 mls/hr IV Q24H [facility] Last Infusion: 12/29/24 20:22 Dose: Infused Documented By: VICKIE Dextrose/Lactated Ringer's (D5lr) 1,000 mls @ 80 mls/hr IVCONT .[id number] [facility] Last Admin: 12/30/24 09:44 Dose: 80 mls/hr Documented By: ROEL Levothyroxine Sodium (Levothyroxine Sodium 50 Mcg Tablet) 50 mcg PO DAILY@0600 [facility] Last Admin: 12/30/24 05:43 Dose: 50 mcg Documented By: VICKIE Magnesium Hydroxide (Milk Of Magnesia 30 Ml Oral.Susp) 30 ml PO DAILY PRN PRN Reason: Constipation Melatonin (Melatonin 3 Mg Tablet) 6 mg PO BEDTIME PRN PRN Reason: Insomnia Naloxone HCl (Naloxone Hcl 0.4 Mg/Ml Vial) 0.04 mg IVPUSH Q5M PRN PRN Reason: Excessive sedation or RR < 8 Ondansetron HCl (Ondansetron Hcl 4 Mg/2 Ml Vial) 4 mg IVPUSH Q8H PRN PRN Reason: Nausea and Vomiting Last Admin: 12/28/24 15:52 Dose: 4 mg Documented By: YVONNE Pantoprazole Sodium (Pantoprazole Sodium 40 Mg/10 Ml Vial) 40 mg IVPUSH BID@0630,1630 [facility] Last Admin: 12/30/24 09:49 Dose: 40 mg Documented By: ROEL Sodium Chloride (0.9 % Sodium Chloride Flush 3 Ml Syringe) 3 ml IVFLUSH QSHIFT [facility] Last Admin: 12/30/24 09:42 Dose: 3 ml Documented By: ROEL Sucralfate (Sucralfate 1 Gm Tablet) 1 gm PO QIDACHS [facility] Last Admin: 12/30/24 09:42 Dose: 1 gm Documented By: ROEL Vitamin D (Cholecalciferol (Vitamin D3) 25 Mcg Tablet) 25 mcg PO DAILY [facility] Last Admin: 12/30/24 09:42 Dose: 25 mcg Documented By: ROEL Labs 12/30/24 08:13 12/29/24 06:36 Labs: Laboratory Results - last 24 hr 12/30/24 12/30/24 12/30/24 08:13 10:03 10:26 MCV 93.8 D MCH 29.0 MCHC 30.9 L RDW 19.1 H Plt Count 86 L MPV 11.3 Absolute Nucleated RBC 0.000 Nucleated RBC % (auto) 0.0 Influenza Type A (PCR) NEGATIVE Influenza Type B (PCR) NEGATIVE RSV RNA Qual (PCR) NEGATIVE SARS-CoV-2 RNA (RT-PCR) NEGATIVE Crossmatch See Detail Assessment and Plan (1) Duodenal mass: Status: Acute (2) Esophagitis determined by endoscopy: Status: Acute (3) Hematemesis: Status: Acute (4) Anemia: Status: Acute (5) GIB (gastrointestinal bleeding): Status: Acute (6) ESRD (end stage renal disease): Status: Acute (7) Acute blood loss anemia: Status: Acute Plan Pt is an 84-year-old Welsh-speaking male with a PMH significant for?ESRD on HD M//, 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 Pt will be admitted to the hospital for treatment and further evaluation of acute symptomatic blood loss anemia likely secondary to UGIB. Acute symptomatic blood loss anemia secondary to UGIB from ulcerated duodenal ulcerated mass Hb dropped to 5.1 post 2 units transfusion, to transfuse 2 more units No obvious source of bleeding EGD showed duodenal mass with ulceration and partial obstruction of stomach outlet, NG tube placed on suction Pathology pending GI series pending on Tuesday Protonix IV b.i.d. on Clear liquid diet, Surgery input appreciated, wait pathology results and upper GI studies. Options include local resection, bypass with gastrojejunostomy, or nonoperative management based on the pathologic results. 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 Pending CTA now Vascular to follow if needed Hypotension resolved after IVF, midodrine, and transfused 2 units PRBCs Monitor BP Community-acquired pneumonia repeated CXR still showing IMER pneumonia No sepsis continue cefepime and azithromycin, started 12/26 ESRD On HD // Follows with [facility] Nephrology consulted Monitor on telemetry CAD Continue statin Hold aspirin d/t acute blood loss anemia Hypothyroidism Continue levothyroxine Hx of gout Continue allopurinol Full Code DVT Prophylaxis: Pneumatic compression due to acute blood loss anemia Pt will require a hospitalization overnight for treatment of?symptomatic acute blood loss anemia likely secondary to UGIB. Pt will require hospital level care for close monitoring of CBC, electrolytes, and BP with transfusion as necessary, as well as IV PPI and GI and surgery follow up Quality Stroke Does the patient have a stroke diagnosis?: No VTE Prior VTE?: No VTE Risk Level:: Medical - moderate - high VTE Device Contraindication: N/A - Device Ordered VTE Drug Contraindication: Treatment Not Indicated
--- NOTE | 2024-12-30 11:52 | P.PNNP_ITS ---
Subjective Subjective Date of Service: 12/30/24 Interval history: Seen and evaluated this morning Hb drop again Physical Exam 2 Vital Signs: Vital Signs: Last Vital Signs Temp 98.8 F 12/30/24 11:16 Pulse 65 12/30/24 11:16 Resp 19 12/30/24 11:16 BP 121/53 L 12/30/24 11:16 Pulse Ox 96 12/30/24 11:16 O2 Del Method Room Air 12/30/24 11:16 O2 Flow Rate 2 12/28/24 16:53 BMI result Body Mass Index 24.9 Const: General: alert and awake HEENT: Head: Yes normocephalic and Yes atraumatic Neck: Neck: Yes supple Resp: Auscultation: diminished lung sounds Cardio: Heart sounds: S1 normal heart sound present and S2 normal heart sound present GI: Palpation (GI): Soft to palpation and nontender Extrem: General: Yes normal to inspection Objective Data Labs 12/30/24 08:13 12/29/24 06:36 Labs: Laboratory Results - last 24 hr 12/30/24 12/30/24 12/30/24 08:13 10:03 10:26 WBC 3.6 L RBC 1.76 L D Hgb 5.1 L* D Hct 16.5 L* D MCV 93.8 D MCH 29.0 MCHC 30.9 L RDW 19.1 H Plt Count 86 L MPV 11.3 Absolute Nucleated RBC 0.000 Nucleated RBC % (auto) 0.0 Influenza Type A (PCR) NEGATIVE Influenza Type B (PCR) NEGATIVE RSV RNA Qual (PCR) NEGATIVE SARS-CoV-2 RNA (RT-PCR) NEGATIVE Blood Type A Positive Antibody Screen NEGATIVE Crossmatch See Detail Microbiology Microbiology Results: Microbiology 12/26/24 14:13 Blood - Venous Blood Culture - Preliminary No growth after 48 hours. 12/26/24 14:12 Blood - Venous Blood Culture - Preliminary No growth after 48 hours. Procedures Date of Service Date of Service: 12/30/24 Assessment & Plan Assessment and plan (1) ESRD (end stage renal disease): Status: Acute (2) GIB (gastrointestinal bleeding): Status: Acute (3) Anemia: Status: Acute Plan known ESRD on HD at [facility] followed by Dr Rob admitted with GIB nephrogenic anemia + UGIB REC HD ordered for mwf follow h/h transfuse for Hb < 7 PPI GI consult and w/u as noted P binders MAGDALENA will follow w team Time Spent With Patient Time: Total time managing care of this patient today ____ minutes. Progress Note: Quality Stroke Does the patient have a stroke diagnosis?: No
--- NOTE | 2024-12-30 11:55 | P.PNNP_ITS ---
Subjective Subjective Date of Service: 01/03/25 Interval history: Seen and evaluated this morning Hb drop again Physical Exam 2 Vital Signs: Vital Signs: Last Vital Signs Temp 98.8 F 12/30/24 11:16 Pulse 65 12/30/24 11:16 Resp 19 12/30/24 11:16 BP 121/53 L 12/30/24 11:16 Pulse Ox 96 12/30/24 11:16 O2 Del Method Room Air 12/30/24 11:16 O2 Flow Rate 2 12/28/24 16:53 BMI result Body Mass Index 24.9 Objective Data Labs 01/03/25 08:56 01/03/25 08:56 Labs: Laboratory Results - last 24 hr 12/30/24 12/30/24 12/30/24 08:13 10:03 10:26 WBC 3.6 L RBC 1.76 L D Hgb 5.1 L* D Hct 16.5 L* D MCV 93.8 D MCH 29.0 MCHC 30.9 L RDW 19.1 H Plt Count 86 L MPV 11.3 Absolute Nucleated RBC 0.000 Nucleated RBC % (auto) 0.0 Influenza Type A (PCR) NEGATIVE Influenza Type B (PCR) NEGATIVE RSV RNA Qual (PCR) NEGATIVE SARS-CoV-2 RNA (RT-PCR) NEGATIVE Blood Type A Positive Antibody Screen NEGATIVE Crossmatch See Detail Microbiology Microbiology Results: Microbiology 12/26/24 14:13 Blood - Venous Blood Culture - Preliminary No growth after 48 hours. 12/26/24 14:12 Blood - Venous Blood Culture - Preliminary No growth after 48 hours. Procedures Date of Service Date of Service: 01/03/25 Assessment & Plan Time Spent With Patient Time: Total time managing care of this patient today ____ minutes. Progress Note: Quality Stroke Does the patient have a stroke diagnosis?: No
[2024-12-30] MEDS: iohexoL 350 MG/ML 100 ML INFUS..BTL 70 ML IV (11:56)
--- NOTE | 2024-12-30 13:50 | P.DS_ITS ---
DS: Providers Provider Date of Service: 12/30/24 Date of admission: 12/26/24 18:25 Date of discharge: 12/30/24 Primary care physician: Adriane Higuera MD Consults: 12/26/24 18:25 Consult to Gastroenterology Routine Consulting Provider: Jude Hameed Reason for consultation: Acute blood loss anemia 12/26/24 18:53 Consult to Nephrology Routine Consulting Provider: [facility] Reason for consultation: ESRD on HD MWF 12/29/24 08:01 Consult to General Surgery Routine Consulting Provider: [facility] General Surgeons Reason for consultation: Duodenal mass. 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 The pt states he felt overall unwell this morning with a few episodes of nausea and vomiting. Reports some flecks of blood in vomitus as well as with cough. Pt went to hemodialysis earlier in the day and received 2 hours of treatment before it was stopped due to low BP. Pt was then sent to the ED for further evaluation. Pt states he felt lightheaded and dizzy after dialysis, though not before. Has noticed black-colored stools for the past few days. Overall pt is a rather vague and poor historian. Denies abdominal pain. No chest pain/pressure, palpitations. Denies shortness or breath or difficulty breathing. No fever, chills. Pt's stool examines at bedside which appears melenic in nature. Of note, pt was recently admitted to the hospital from 12/04-12/06 for similar symptoms. Pt underwent EGD which found evidence of erosive esophagitis, atrophic gastritis, and erosive duodenitis. Pt was discharged home on PPI 40 mg b.i.d. x1 month and Carafate x2 weeks. In the ED pt was initially hypotensive as low as 83/50, improved to 120 5/57 after transfusion and fluids. Labs were significant for H&H 5.9/18, otherwise grossly unremarkable around baseline for pt. Stool negative for occult blood. No leukocytosis. Creatinine 3.42 (improved from baseline of around 5.50). No significant electrolyte abnormalities. Lactic acid WNL. Hepatic function baseline. Troponin WNL. Tested negative for flu, COVID, RSV. CXR showed left lobe. EKG demonstrated sinus rhythm with first-degree AV block but no evidence of significant ischemic changes. Pt was treated with midodrine, Protonix, IVF, cefepime, and azithromycin, and trasfused 2 units PRBCs. Pt will be admitted to the hospital for treatment and further evaluation of acute symptomatic blood loss anemia likely secondary to UGIB. Hospital course # Acute symptomatic blood loss anemia secondary to UGIB from ulcerated duodenal ulcerated mass. Hemoglobin improved to 7.6 after 2 units transfusion for 3 days before dropping again on 12/30 to 5.1, to transfuse 2 more units as EGD showed duodenal mass with ulceration and partial obstruction of stomach outlet, NG tube placed on suction but did not bring much as no signs of obstruction so it was removed and patient was able to tolerate diet. Pathology pending. GI recommended GI series pending on Tuesday. Kept on Protonix IV b.i.d. Surgery input appreciated, wait pathology results and upper GI studies. Options include local resection, bypass with gastrojejunostomy, or nonoperative management based on the pathologic results. # Dilated Aortic arch aneurysm. CXR reporting widening aneurysm to 7 CM CTA done showing Aneurysmal dilation of the thoracic aorta as above with short- segment dissection at the proximal portion of the aneurysms. Postprocedural changes as above. 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 Multifocal areas of consolidation within the lungs most characteristic of multifocal pneumonia. # Hypotension on presentation. resolved after IVF, midodrine, and transfusion 2 units PRBCs. Monitor BP # Community-acquired pneumonia noted on presentation and treated with IV cefepime and azithromycin, started 12/26. repeated CXR 12/30 still showing IMER pneumonia. No sepsis. # ESRD On HD M/W/F. Nephrology following. Tolerating dialysis as scheduled. # CAD w Hx of CABG. Continue statin. Hold aspirin d/t acute blood loss anemia Discharge plan Time Attestation Discharge Coordination Time (in mins): 52 Quality: Safe Use of Opioids Does Pt have an Active Cancer Diagnosis on the Problem List?: No Quality: Stroke Does the patient have a stroke diagnosis?: No Physical Exam Vital Signs: Vital Signs: Last Vital Signs Temp 97.9 F 12/30/24 12:31 Pulse 64 12/30/24 12:31 Resp 16 12/30/24 12:31 BP 163/74 H 12/30/24 12:31 Pulse Ox 96 12/30/24 11:16 O2 Del Method Room Air 12/30/24 11:16 O2 Flow Rate 2 12/28/24 16:53 BMI result Body Mass Index 24.9 Const: Other: Constitutional : Awake, interactive, not in distress Neck : Normal inspection, Supple, Cardiovascular : RRR, no JVP, no lower extremity edema Respiratory : good bilateral air entry, no crackles, wheezes or rhonchi Gastrointestinal: soft, lax, Normal bowel sounds, Non tender Skin : Warm, Dry Neurological : Alert & oriented x3, No focal deficit DS: Data Data Completed and Pending Completed studies during hospitalization [Text1]: Procedures Excision of Left Lower Arm Skin, External Approach (05/30/24) Excision of Stomach, Pylorus, Via Natural or Artificial Opening Endoscopic, Diagnostic (12/04/24) Insertion of Infusion Device into Superior Vena Cava, Percutaneous Approach (01/12/21) Insertion of Tunneled Vascular Access Device into Chest Subcutaneous Tissue and Fascia, Percutaneous Approach (01/12/21) Introduction of Anesthetic Agent into Peripheral Nerves and Plexi, Percutaneous Approach (05/30/24) Introduction of Vasopressor into Peripheral Vein, Percutaneous Approach (05/30/24) Performance of Urinary Filtration, Intermittent, Less than 6 Hours Per Day (12/04/24) Restriction of Left Cephalic Vein, Open Approach (05/30/24) Transfusion of Nonautologous Red Blood Cells into Peripheral Vein, Percutaneous Approach (05/30/24) Ultrasonography of Superior Vena Cava, Guidance (04/05/21) Pending studies at discharge: Pending at discharge 12/28/24 16:25 Surgical [PTH] Routine Labs on day of discharge: Laboratory Results - last 24 hr 12/30/24 12/30/24 12/30/24 08:13 10:03 10:26 WBC 3.6 L RBC 1.76 L D Hgb 5.1 L* D Hct 16.5 L* D MCV 93.8 D MCH 29.0 MCHC 30.9 L RDW 19.1 H Plt Count 86 L MPV 11.3 Absolute Nucleated RBC 0.000 Nucleated RBC % (auto) 0.0 Influenza Type A (PCR) NEGATIVE Influenza Type B (PCR) NEGATIVE RSV RNA Qual (PCR) NEGATIVE SARS-CoV-2 RNA (RT-PCR) NEGATIVE Blood Type A Positive Antibody Screen NEGATIVE Crossmatch See Detail Preliminary micro results at discharge 12/26/24 14:13 Blood Culture - Preliminary Blood - Venous No growth after 48 hours. 12/26/24 14:12 Blood Culture - Preliminary Blood - Venous No growth after 48 hours. Imaging Chest x-ray: Radiologist's impression: ITS Impressions Chest X-Ray 12/26/24 14:40 IMPRESSION: Left upper lobe pneumonia. Follow-up is recommended to document resolution. Electronically signed by: Theodore Hassan MD 12/26/2024 02:51 PM EDT RP CTA Chest Impression: 1. 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 2. Postprocedural changes as above. 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 3. Multifocal areas of consolidation within the lungs most characteristic of multifocal pneumonia. 4. Cholelithiasis with potential findings of cholecystitis. Clinical correlation advised. This document has been electronically signed by: Niels Tinoco MD on 12/30/2024 12:37:19 Discharge Plan Discharge Anticipated Discharge Date/Time: 12/30/24 14:23 Patient Disposition: Home Health Service Discharge Diagnosis: Acute on chronic blood loss anemia GI Bleeding, duodenal ulcerated mass Referrals: [facility] [Outside] - 1 Day (HOME PHYSICAL THERAPY) Adriane Higuera MD [Primary Care Provider] - 01/08/25 9:30 am (You have a follow up visit scheduled. If you can not make the appointment, call doctors office to reschedule. ) Discharge Medications: New azithromycin 500 mg Recon Soln 500 mg IV Q24H Qty: 1 0RF cefepime 1 gram Recon Soln 0.5 g IV Q24H Qty: 1 0RF pantoprazole [Protonix] 40 mg Recon Soln 40 mg IVPUSH BID@0630,1630 Qty: 1 0RF Continued atorvastatin 80 mg tablet 80 mg PO BEDTIME allopurinol 100 mg tablet 100 mg PO DAILY aspirin 81 mg tablet,delayed release (DR/EC) 81 mg PO DAILY levothyroxine 50 mcg tablet 50 mcg PO DAILY@0600 cholecalciferol (vitamin D3) [Vitamin D3] 25 mcg (1,000 unit) Capsule 25 mcg PO DAILY folic acid 1 mg tablet 1 mg PO DAILY Qty: 30 0RF guaifenesin [Chest Congestion Relief] 400 mg tablet 400 mg PO Q6H PRN (Reason: cough) sucralfate [Carafate] 1 gram tablet 1 g PO QIDACHS 14 Days Qty: 56 0RF pantoprazole 40 mg tablet,delayed release (DR/EC) 40 mg PO BID 30 Days Qty: 60 0RF cyanocobalamin (vitamin B-12) 1,000 mcg tablet 1,000 mcg PO DAILY Diet: Advance to usual diet Activity on Discharge: As tolerated Stand Alone Forms: Patient Portal Discharge page Print Language: Haitian Health Concerns: Pneumonia GI bleeding Plan of Treatment: Antibiotics PPI Assessment: as above
[2024-12-30] MEDS: Labetalol HCL 100 MG/20 ML VIAL IVPUSH (13:58)
[2024-12-30] MEDS: Azithromycin 500 MG in 0.9 % Sodium Chloride 250 ML 125 MG IV (13:59)
[2024-12-30 17:24] LABS: Hemoglobin 7.5 g/dl (14.0-18.0); Mean Corpuscular HGB Conc 32.6 g/dl (31.0-36.0); Mean Corpuscular Hemoglobin 29.2 pg (27.0-33.0); Mean Corpuscular Volume 89.5 fL (80.0-98.0); Mean Platelet Volume 10.6 fL (9.4-12.4); Platelet Count 101 X10*3/uL (160-400); Red Blood Count 2.57 X10*6/uL (4.60-5.80); Red Cell Distribution Width 18.6 % (11.0-16.0); White Blood Count 5.7 X10*3/uL (4.8-10.8)
[2024-12-30] MEDS: cefEPime HCl 0.5 GM in 0.9 % Sodium Chloride 50 ML IV (17:35)
[2024-12-30] MEDS: Benzonatate 100 MG CAPSULE 200 MG PO (18:49)
[2024-12-30] MEDS: Melatonin 3 MG TABLET 6 MG PO (21:47)
[2024-12-30] MEDS: Atorvastatin Calcium 80 MG TABLET PO (21:47)
[2024-12-31] VITALS (8 sets, daily range): BP systolic 129–180; BP diastolic 59–81; PULSE 61–69; RESP 14–20; TEMP 36.2–37.1; O2SAT 90–98
[2024-12-31] MEDS: Levothyroxine Sodium 50 MCG TABLET PO (05:03)
[2024-12-31] MEDS: Pantoprazole Sodium 40 MG/10 ML VIAL IVPUSH ×2 (05:03→16:11)
[2024-12-31 06:56] LABS: MANUAL DIFF FLAG NO
[2024-12-31 07:12] LABS: Basophils Percent Auto 0.8 % (0-2); Eosinophils Absolute Auto 0.2 X10*3/uL (0.0-0.4); Eosinophils Percent Auto 4.7 % (0-4); Hematocrit 24.6 % (42.0-52.0); Hemoglobin 8.3 g/dl (14.0-18.0); Imm Gran Abs Auto 0.02 X10*3/uL (0.00-0.03); Imm Gran Pct Auto 0.4 % (0.0-0.4); Lymphocytes Absolute Auto 1.8 X10*3/uL (1.2-4.9); Lymphocytes Percent Auto 34.6 % (20-40); Mean Corpuscular HGB Conc 33.7 g/dl (31.0-36.0); Mean Corpuscular Hemoglobin 29.6 pg (27.0-33.0); Mean Corpuscular Volume 87.9 fL (80.0-98.0); Monocytes Absolute Auto 0.6 X10*3/uL (0.1-1.2); Monocytes Percent Auto 11.8 % (2-11); Neutrophils Absolute Auto 2.4 x10*3/uL (2.0-8.3); Neutrophils Percent Auto 47.7 % (45-73); Platelet Count 92 X10*3/uL (160-400); Red Cell Distribution Width 17.8 % (11.0-16.0); White Blood Count 5.1 X10*3/uL (4.8-10.8)
[2024-12-31 07:30] LABS: Anion Gap 11 (12-20); Blood Urea Nitrogen 38 mg/dL (9-16); Calcium 9.4 mg/dL (8.4-10.2); Carbon Dioxide 24 mmol/L (22-29); Chloride 106 mmol/L (96-108); Glucose Random 66 mg/dL (60-115); Potassium 3.4 mmol/L (3.3-5.1); Sodium 138 mmol/L (135-145)
[2024-12-31 07:46] LABS: Creatinine Clr Calc Pharmacy 9.6; Estimated Glomerular Filt Rate 10
[2024-12-31] MEDS: Acetaminophen 325 MG TABLET 650 MG PO (09:10)
[2024-12-31] MEDS: 0.9 % Sodium Chloride Flush 3 ML SYRINGE IVFLUSH ×3 (09:11→21:10)
[2024-12-31] MEDS: Sucralfate 1 GM TABLET PO ×4 (09:11→21:09)
[2024-12-31] MEDS: guaiFENesin LA 600 MG TAB.ER.12H PO ×2 (09:17→21:10)
--- NOTE | 2024-12-31 12:48 | HO.PM.IMPN ---
Subjective Subjective Date of Service: 12/31/24 Interval History: Seen and evaluated this morning looks comfortable , reports headache Hb improved to 8.3 after 2 units transfusion no other events Review of Systems Review of Systems: Yes all other systems are reviewed and are negative Physical Exam Vital Signs: Vital Signs: Last Vital Signs Temp 97.5 F 12/31/24 08:00 Pulse 61 12/31/24 08:00 Resp 18 12/31/24 08:00 BP 148/64 H 12/31/24 08:00 Pulse Ox 94 12/31/24 08:00 O2 Del Method Room Air 12/31/24 08:00 O2 Flow Rate 2 12/28/24 16:53 BMI result Body Mass Index 24.9 Const: Other: Constitutional : Awake, interactive, not in distress Neck : Normal inspection, Supple, Cardiovascular : RRR, no JVP, no lower extremity edema Respiratory : good bilateral air entry, no crackles, wheezes or rhonchi Gastrointestinal: soft, lax, Normal bowel sounds, Non tender Skin : Warm, Dry Neurological : Alert & oriented x3, No focal deficit Objective Data Active Medications Acetaminophen (Acetaminophen 325 Mg Tablet) 650 mg PO Q6H PRN PRN Reason: Pain, Mild 1-3,fever,headache Last Admin: 12/31/24 09:10 Dose: 650 mg Documented By: CANDICE Allopurinol (Allopurinol 100 Mg Tablet) 100 mg PO DAILY [facility] Last Admin: 12/30/24 09:42 Dose: 100 mg Documented By: ROEL Atorvastatin Calcium (Atorvastatin Calcium 80 Mg Tablet) 80 mg PO BEDTIME [facility] Last Admin: 12/30/24 21:47 Dose: 80 mg Documented By: NICK Benzonatate (Benzonatate 100 Mg Capsule) 200 mg PO TID PRN PRN Reason: Cough Last Admin: 12/30/24 18:49 Dose: 200 mg Documented By: ROEL Calcium Carbonate (Calcium Carbonate 750 Mg Tab.Chew) 750 mg PO Q4H PRN PRN Reason: Heartburn Cyanocobalamin (Cyanocobalamin (Vitamin B-12) 1,000 Mcg Tablet) 1,000 mcg PO DAILY [facility] Last Admin: 12/30/24 09:42 Dose: 1,000 mcg Documented By: ROEL Folic Acid (Folic Acid 1 Mg Tablet) 1 mg PO DAILY [facility] Last Admin: 12/30/24 09:42 Dose: 1 mg Documented By: ROEL Guaifenesin (Guaifenesin La 600 Mg Tab.Er.12h) 600 mg PO BID [facility] Last Admin: 12/31/24 09:17 Dose: 600 mg Documented By: CANDICE Cefepime HCl 0.5 gm/ Sodium (Chloride) 50 mls @ 100 mls/hr IV Q24H [facility] Last Infusion: 12/30/24 18:24 Dose: Infused Documented By: ROEL Azithromycin 500 mg/ Sodium (Chloride) 250 mls @ 125 mls/hr IV Q24H [facility] Last Infusion: 12/30/24 17:26 Dose: Infused Documented By: ROEL Levothyroxine Sodium (Levothyroxine Sodium 50 Mcg Tablet) 50 mcg PO DAILY@0600 [facility] Last Admin: 12/31/24 05:03 Dose: 50 mcg Documented By: NICK Magnesium Hydroxide (Milk Of Magnesia 30 Ml Oral.Susp) 30 ml PO DAILY PRN PRN Reason: Constipation Melatonin (Melatonin 3 Mg Tablet) 6 mg PO BEDTIME PRN PRN Reason: Insomnia Last Admin: 12/30/24 21:47 Dose: 6 mg Documented By: NICK Naloxone HCl (Naloxone Hcl 0.4 Mg/Ml Vial) 0.04 mg IVPUSH Q5M PRN PRN Reason: Excessive sedation or RR < 8 Ondansetron HCl (Ondansetron Hcl 4 Mg/2 Ml Vial) 4 mg IVPUSH Q8H PRN PRN Reason: Nausea and Vomiting Last Admin: 12/28/24 15:52 Dose: 4 mg Documented By: YVONNE Pantoprazole Sodium (Pantoprazole Sodium 40 Mg/10 Ml Vial) 40 mg IVPUSH BID@0630,1630 [facility] Last Admin: 12/31/24 05:03 Dose: 40 mg Documented By: NICK Sodium Chloride (0.9 % Sodium Chloride Flush 3 Ml Syringe) 3 ml IVFLUSH QSHIFT [facility] Last Admin: 12/31/24 09:11 Dose: 3 ml Documented By: CANDICE Sucralfate (Sucralfate 1 Gm Tablet) 1 gm PO QIDACHS [facility] Last Admin: 12/31/24 09:11 Dose: 1 gm Documented By: CANDICE Vitamin D (Cholecalciferol (Vitamin D3) 25 Mcg Tablet) 25 mcg PO DAILY [facility]INT[facility] Last Admin: 12/30/24 09:42 Dose: 25 mcg Documented By: ROEL Labs 12/31/24 06:45 12/31/24 06:45 Labs: Laboratory Results - last 24 hr 12/30/24 12/30/24 12/30/24 08:13 10:26 17:12 MCV 89.5 MCH 29.2 MCHC 32.6 RDW 18.6 H Plt Count 101 L MPV 10.6 Immature Gran % (Auto) Neut % (Auto) Lymph % (Auto) [place] % (Auto) Eos % (Auto) Baso % (Auto) Lymph # (Auto) [place] # (Auto) Eos # (Auto) Baso # (Auto) Abs Immat Gran (auto) Absolute Neuts (auto) Absolute Nucleated RBC 0.000 Nucleated RBC % (auto) 0.0 Smear Path Review SEE NOTE Anion Gap Estim Creat Clear Calc Estimated GFR Random Glucose Calcium Blood Type A Positive Antibody Screen NEGATIVE Crossmatch See Detail 12/31/24 06:45 MCV 87.9 MCH 29.6 MCHC 33.7 RDW 17.8 H Plt Count 92 L MPV TNP Immature Gran % (Auto) 0.4 Neut % (Auto) 47.7 Lymph % (Auto) 34.6 [place] % (Auto) 11.8 H Eos % (Auto) 4.7 H Baso % (Auto) 0.8 Lymph # (Auto) 1.8 [place] # (Auto) 0.6 Eos # (Auto) 0.2 Baso # (Auto) 0.0 Abs Immat Gran (auto) 0.02 Absolute Neuts (auto) 2.4 Absolute Nucleated RBC 0.000 Nucleated RBC % (auto) 0.0 Smear Path Review Anion Gap 11 L Estim Creat Clear Calc 9.6 Estimated GFR 10 Random Glucose 66 Calcium 9.4 Blood Type Antibody Screen Crossmatch Assessment and Plan (1) Duodenal mass: Status: Acute (2) Duodenitis: Status: Acute (3) Esophagitis determined by endoscopy: Status: Acute (4) Hematemesis: Status: Acute (5) ESRD (end stage renal disease): Status: Acute Plan Pt is an 84-year-old Kyrgyz-speaking male with a PMH significant for?ESRD on HD M/W/F, 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 Pt will be admitted to the hospital for treatment and further evaluation of acute symptomatic blood loss anemia likely secondary to UGIB. Acute symptomatic blood loss anemia secondary to UGIB from ulcerated duodenal ulcerated mass Hb improved to 8.3 after total of 4 units PRBCs EGD showed duodenal mass with ulceration and partial obstruction of stomach outlet, NG tube placed on suction Pathology pending GI series pending for tomorrow per radiology Protonix IV b.i.d. on Clear liquid diet, Surgery input appreciated, wait pathology results and upper GI studies. Options include local resection, bypass with gastrojejunostomy, or nonoperative management based on the pathologic results. 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 CTA done showing Aneurysmal dilation of the thoracic aorta as above with short-segment dissection at the proximal portion of the aneurysms. Postprocedural changes as above. 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 Multifocal areas of consolidation within the lungs most characteristic of multifocal pneumonia. Discussed with [facility] vascular surgery 12/30 , did not feel its acute or need any urgent intervention Vascular input appreciated, follow as outpatient with his vascular surgery in [place] Monitor BP, tight control Hypotension resolved after IVF, midodrine, and transfusion Monitor BP Community-acquired pneumonia repeated CXR still showing IMER pneumonia No sepsis continue cefepime and azithromycin, started 12/26 ESRD On HD M/W/ Follows with [facility] Nephrology consulted Monitor on telemetry CAD Continue statin Hold aspirin d/t acute blood loss anemia Hypothyroidism Continue levothyroxine Hx of gout Continue allopurinol Full Code DVT Prophylaxis: Pneumatic compression due to acute blood loss anemia Pt will require a hospitalization overnight for treatment of?symptomatic acute blood loss anemia likely secondary to UGIB. Pt will require hospital level care for close monitoring of CBC, electrolytes, and BP with transfusion as necessary, as well as IV PPI and GI and surgery follow up Quality Stroke Does the patient have a stroke diagnosis?: No VTE Prior VTE?: No VTE Risk Level:: Medical - moderate - high VTE Device Contraindication: N/A - Device Ordered VTE Drug Contraindication: Treatment Not Indicated
--- NOTE | 2024-12-31 12:56 | P.CONGS_ITS ---
<Statement entered by Theodore Jose MD - 01/01/25 08:50> I have seen and evaluated the patient and agree with history, findings, assessment and plan documented by Annette Russell PA-c. In short patient has a thoracic aneurysm. It does appear that this is more chronic in nature and may have even been attempted to be treated in past. There appears to be a left subclavian stent which has gone on to occlude. This all appears chronic in nature. At the current time would continue medical management of his GI bleed and pneumonia. He can follow-up as an outpatient and I do believe he was seen at a tertiary care center in [place]. I would suggest returning there. If not we can assist in coordination of care at [facility] where this can be better addressed. Once again he can follow up with us on an as-needed basis and will need referral as an outpatient to a tertiary care center. History of Present Illness Consult details Consult date: 12/31/24 Narrative: We were consulted today for Bi, an 84yo Swedish speaking only male patient, for concerns of an aneursymal dilation of the thoracic aorta with short segment dissection at the proximal portions of the aneurysms and occlusion of the vascular stents within the left subclavian and brachiocephalic veins. He presented to the ER on 12/26/24 from HD due to hypotension with nausea and vomiting, only 2h into his treatment time. 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 He is on a baby ASA but no blood thinners. He was found to have gastric outlet obstruction as well as a left upper lobe pneumonia but we were consulted for the thoracic aorta aneurysm with occlusions of the left subclavian and brachiocephalic veins. The pt denies shortness of breath, diff breathing, and CP. He was seen this morning while having dialysis. Review of Systems 2 Constitutional: Constitutional: Reports as per HPI and Denies weakness ENT: Reports Normal hearing present and Denies dizziness Cardiovascular: Cardiovascular: Reports as per HPI, Denies chest pain, Denies chest pain at rest, Denies chest pain with activity, Denies dyspnea and Denies dyspnea on exertion Respiratory: Respiratory: Reports as per HPI, Denies cough, Denies dyspnea and Denies dyspnea on exertion Gastrointestinal: Gastrointestinal: Reports as per HPI, Denies abdominal pain, Denies nausea and Denies vomiting Musculoskeletal: Musculoskeletal: Denies numbness Integumentary/Breasts: Skin/Breast: Reports as per HPI, Denies erythema and Denies wounds Neurologic: Reports Normal hearing present, Denies dizziness, Denies numbness, Denies Sensory deficit (Neuro) and Denies weakness Psychiatric: Psychiatric: Reports no additional psychiatric complaints Endocrine: Endocrine: Reports no additional endocrine complaints [facility] Past Medical History Medical History ESRD (end stage renal disease) Anemia CKD (chronic kidney disease) stage 5, GFR less than 15 ml/min MSSA bacteremia Dialysis patient COVID-19 vaccine administered Renal failure COPD (chronic obstructive pulmonary disease) Thyroid disease GERD (gastroesophageal reflux disease) Elevated cholesterol PVD (peripheral vascular disease) Prostate CA HTN (hypertension) Heart attack Surgical History Surgical History Hx of cataract surgery Hx of cystoscopy History of incision and drainage H/O colonoscopy Hx of aortic valve replacement Hx of CABG Social History Social History Household Members: Children Household Members Other:: son Housing: Apartment Are you a primary customer care team coach to a significant other at home: No Do you presently have visiting nurse or other home services: No Alcohol intake: never Comment: Surgeon informed that all counts were correct Patient Tobacco Use Status: Never used Tobacco e-Cigarette/Vaping Use: Never Used Second Hand Smoke Exposure: No Advance Directives Date on File: 12/05/24 service: No Current occupational status: disabled Meds Allergies Allergy/AdvReac Type Severity Reaction Status Date / Time No Known Allergies Allergy Mild NONE Verified 12/26/24 13:59 Active Medications: Current Medications Acetaminophen (Acetaminophen 325 Mg Tablet) 650 mg PO Q6H PRN PRN Reason: Pain, Mild 1-3,fever,headache Last Admin: 12/31/24 09:10 Dose: 650 mg Allopurinol (Allopurinol 100 Mg Tablet) 100 mg PO DAILY [facility] Last Admin: 12/30/24 09:42 Dose: 100 mg Atorvastatin Calcium (Atorvastatin Calcium 80 Mg Tablet) 80 mg PO BEDTIME [facility] Last Admin: 12/30/24 21:47 Dose: 80 mg Benzonatate (Benzonatate 100 Mg Capsule) 200 mg PO TID PRN PRN Reason: Cough Last Admin: 12/30/24 18:49 Dose: 200 mg Calcium Carbonate (Calcium Carbonate 750 Mg Tab.Chew) 750 mg PO Q4H PRN PRN Reason: Heartburn Cyanocobalamin (Cyanocobalamin (Vitamin B-12) 1,000 Mcg Tablet) 1,000 mcg PO DAILY [facility] Last Admin: 12/30/24 09:42 Dose: 1,000 mcg Folic Acid (Folic Acid 1 Mg Tablet) 1 mg PO DAILY [facility] Last Admin: 12/30/24 09:42 Dose: 1 mg Guaifenesin (Guaifenesin La 600 Mg Tab.Er.12h) 600 mg PO BID [facility] Last Admin: 12/31/24 09:17 Dose: 600 mg Cefepime HCl 0.5 gm/ Sodium (Chloride) 50 mls @ 100 mls/hr IV Q24H [facility] Last Infusion: 12/30/24 18:24 Dose: Infused Azithromycin 500 mg/ Sodium (Chloride) 250 mls @ 125 mls/hr IV Q24H [facility] Last Infusion: 12/30/24 17:26 Dose: Infused Levothyroxine Sodium (Levothyroxine Sodium 50 Mcg Tablet) 50 mcg PO DAILY@0600 [facility] Last Admin: 12/31/24 05:03 Dose: 50 mcg Magnesium Hydroxide (Milk Of Magnesia 30 Ml Oral.Susp) 30 ml PO DAILY PRN PRN Reason: Constipation Melatonin (Melatonin 3 Mg Tablet) 6 mg PO BEDTIME PRN PRN Reason: Insomnia Last Admin: 12/30/24 21:47 Dose: 6 mg Naloxone HCl (Naloxone Hcl 0.4 Mg/Ml Vial) 0.04 mg IVPUSH Q5M PRN PRN Reason: Excessive sedation or RR < 8 Ondansetron HCl (Ondansetron Hcl 4 Mg/2 Ml Vial) 4 mg IVPUSH Q8H PRN PRN Reason: Nausea and Vomiting Last Admin: 12/28/24 15:52 Dose: 4 mg Pantoprazole Sodium (Pantoprazole Sodium 40 Mg/10 Ml Vial) 40 mg IVPUSH BID@0630,1630 [facility] Last Admin: 12/31/24 05:03 Dose: 40 mg Sodium Chloride (0.9 % Sodium Chloride Flush 3 Ml Syringe) 3 ml IVFLUSH QSHIFT [facility] Last Admin: 12/31/24 09:11 Dose: 3 ml Sucralfate (Sucralfate 1 Gm Tablet) 1 gm PO QIDACHS [facility] Last Admin: 12/31/24 09:11 Dose: 1 gm Vitamin D (Cholecalciferol (Vitamin D3) 25 Mcg Tablet) 25 mcg PO DAILY [facility] Last Admin: 12/30/24 09:42 Dose: 25 mcg Home Medications ?Medication ?Instructions ?Recorded ?Confirmed ?Last Taken ?Type allopurinol 100 mg tablet 100 mg PO DAILY 12/30/20 12/26/24 12/26/24 History aspirin 81 mg tablet,delayed 81 mg PO DAILY 12/30/20 12/26/24 12/26/24 History release atorvastatin 80 mg tablet 80 mg PO BEDTIME 12/30/20 12/26/24 12/26/24 History cholecalciferol (vitamin D3) 25 25 mcg PO DAILY 12/30/20 12/26/24 12/26/24 History mcg (1,000 unit) capsule (Vitamin D3) levothyroxine 50 mcg tablet 50 mcg PO DAILY@0600 12/30/20 12/26/24 12/26/24 History cyanocobalamin (vitamin B-12) 1,000 mcg PO DAILY 06/10/23 12/26/24 12/26/24 History 1,000 mcg tablet guaifenesin 400 mg tablet (Chest 400 mg PO Q6H PRN cough 12/04/24 12/26/24 Unknown History Congestion Relief) Physical Exam 2 Vital Signs: Vital Signs: Last Vital Signs Temp 97.5 F 12/31/24 08:00 Pulse 61 12/31/24 08:00 Resp 18 12/31/24 08:00 BP 148/64 H 12/31/24 08:00 Pulse Ox 94 12/31/24 08:00 O2 Del Method Room Air 12/31/24 08:00 O2 Flow Rate 2 12/28/24 16:53 BMI result Body Mass Index 24.9 Const: General: comfortable and no acute distress O rientation/consciousness: patient oriented x3 HEENT: Ears: hearing grossly normal bilaterally Resp: Effort & Inspection: normal respiratory effort and able to speak in complete sentences Auscultation: clear to auscultation bilaterally Cardio: Rate: regular rate Rhythm: regular rhythm Heart sounds: S1 normal heart sound present and S2 normal heart sound present Bruits: no abdominal aortic bruits, no carotid bruits, no femoral bruits and no renal bruits GI: Palpation (GI): No Abdominal aortic bruit present Neuro: General: patient oriented x3 Cranial nerves: Yes Normal hearing present Sensory Exam: No Sensory deficit (Neuro) Results Labs 12/31/24 06:45 12/31/24 06:45 Labs: Abnormal lab results 12/30/24 12/30/24 12/31/24 Range/Units 10:26 17:12 06:45 RBC 2.57 L D 2.80 L (4.60-5.80) X10*6/uL Hgb 7.5 L D 8.3 L (14.0-18.0) g/dl Hct 23.0 L D 24.6 L (42.0-52.0) % RDW 18.6 H 17.8 H (11.0-16.0) % Plt Count 101 L 92 L (160-400) X10*3/uL Dickinson % (Auto) 11.8 H (2-11) % Eos % (Auto) 4.7 H (0-4) % Anion Gap 11 L (12-20) BUN 38 H (9-16) mg/dL Creatinine 5.61 H* (0.5-1.4) mg/dL Crossmatch See Detail Short CBC 12/30/24 12/31/24 Range/Units 17:12 06:45 WBC 5.7 5.1 (4.8-10.8) X10*3/uL Hgb 7.5 L D 8.3 L (14.0-18.0) g/dl Hct 23.0 L D 24.6 L (42.0-52.0) % Plt Count 101 L 92 L (160-400) X10*3/uL BMP 12/31/24 06:45 Sodium 138 Potassium 3.4 Chloride 106 Carbon Dioxide 24 BUN 38 H Creatinine 5.61 H* Calcium 9.4 All other labs normal. Assessment and Plan (1) Thoracic aortic aneurysm: Qualifiers: Thoracic aorta location: aortic arch Presence of rupture: without rupture Qualified Code(s): I71.22 - Aneurysm of the aortic arch, without rupture Status: Acute Plan We were consulted on for concerns of an aneursymal dilation of the thoracic aorta arch with short segment dissection of the proximal portions of the aneurysms as well as occluded stents of the left subclavian and brachiocephalic veins, as seen on chest CTA on 12/30. The pt is being treated for GIB and pneumonia. The hospitalist states that the pt believes he had the original surgery in [place]. The pt denies any shortness of breath, CP, and diff breathing. There is no acute vascular surgical intervention at this point. We highly recommend the pt follow up with his previous vascular surgeon in [place] after being discharged. We will continue to monitor. If there are any questions or concerns, please do not hesitate to reach out to us. Procedures Date of Service Date of Service: 12/31/24
[2024-12-31] MEDS: Folic Acid 1 MG TABLET PO (13:07)
[2024-12-31] MEDS: Cholecalciferol (Vitamin D3) 25 MCG TABLET PO (13:07)
[2024-12-31] MEDS: Cyanocobalamin (Vitamin B-12) 1,000 MCG TABLET 1000 MCG PO (13:07)
[2024-12-31] MEDS: allopurinoL 100 MG TABLET PO (13:07)
--- NOTE | 2024-12-31 14:15 | MHC.CM.PN ---
REVIEWED, PT W/ACUTE BLOOD LOSS ANEMIA/GI BLEED/PNA, PLAN FOR UPPER GI TOMORROW 01/01, P.T. RECOMMENDING HOME W/SERVICES, COMFORT PLUS FOLLOWING, CM WILL CONT TO FOLLOW DC NEEDS.
[2024-12-31] MEDS: Azithromycin 500 MG in 0.9 % Sodium Chloride 250 ML 125 MG IV (16:11)
[2024-12-31] MEDS: Benzonatate 100 MG CAPSULE 200 MG PO (16:13)
[2024-12-31] MEDS: Milk of Magnesia 30 ML ORAL.SUSP PO (18:56)
[2024-12-31] MEDS: cefEPime HCl 0.5 GM in 0.9 % Sodium Chloride 50 ML IV (19:27)
[2024-12-31] MEDS: Melatonin 3 MG TABLET 6 MG PO (21:09)
[2024-12-31] MEDS: Atorvastatin Calcium 80 MG TABLET PO (21:09)
[2024-12-31] MEDS: ondansetron HCL 4 MG/2 ML VIAL IVPUSH (23:40)
[2025-01-01] VITALS (8 sets, daily range): BP systolic 106–162; BP diastolic 58–70; PULSE 63–72; RESP 12–20; TEMP 36.3–37.2; O2SAT 92–93
[2025-01-01] MEDS: Sucralfate 1 GM TABLET PO ×4 (06:26→22:48)
[2025-01-01] MEDS: Pantoprazole Sodium 40 MG/10 ML VIAL IVPUSH ×2 (06:26→15:42)
[2025-01-01] MEDS: Levothyroxine Sodium 50 MCG TABLET PO (06:26)
[2025-01-01 07:12] LABS: MANUAL DIFF FLAG NO
[2025-01-01 07:27] LABS: Basophils Absolute Auto 0.1 X10*3/uL (0.0-0.2); Basophils Percent Auto 0.9 % (0-2); Eosinophils Absolute Auto 0.3 X10*3/uL (0.0-0.4); Hematocrit 28.2 % (42.0-52.0); Imm Gran Abs Auto 0.01 X10*3/uL (0.00-0.03); Imm Gran Pct Auto 0.2 % (0.0-0.4); Lymphocytes Absolute Auto 1.9 X10*3/uL (1.2-4.9); Lymphocytes Percent Auto 34.3 % (20-40); Mean Corpuscular HGB Conc 31.9 g/dl (31.0-36.0); Mean Corpuscular Hemoglobin 28.5 pg (27.0-33.0); Mean Corpuscular Volume 89.2 fL (80.0-98.0); Mean Platelet Volume 11.3 fL (9.4-12.4); Monocytes Absolute Auto 0.5 X10*3/uL (0.1-1.2); Neutrophils Absolute Auto 2.7 x10*3/uL (2.0-8.3); Neutrophils Percent Auto 49.6 % (45-73); Platelet Count 120 X10*3/uL (160-400); Red Blood Count 3.16 X10*6/uL (4.60-5.80); Red Cell Distribution Width 18.1 % (11.0-16.0); White Blood Count 5.4 X10*3/uL (4.8-10.8)
--- NOTE | 2025-01-01 09:21 | P.PNVS_ITS ---
Subjective Subjective Date of Service: 01/01/25 Interval history: Bi is doing well this morning. He denies diff breathing, CP, and shortness of breath. He has no new concerns this morning. He has been coughing and states he sometimes gets a little short of breath when coughing, but it ceases quickly after coughing. He denies any abd pain. Physical Exam Vital Signs: Vital Signs: Last Vital Signs Temp 97.5 F 01/01/25 07:44 Pulse 69 01/01/25 07:44 Resp 12 01/01/25 07:44 BP 159/70 H 01/01/25 07:44 Pulse Ox 93 01/01/25 07:44 O2 Del Method Room Air 01/01/25 07:44 O2 Flow Rate 2 12/28/24 16:53 BMI result Body Mass Index 24.9 Const: General: comfortable and no acute distress Orientation/consciousness: patient oriented x3 HEENT: Ears: hearing grossly normal bilaterally Resp: Effort & Inspection: normal respiratory effort and able to speak in complete sentences Auscultation: clear to auscultation bilaterally Cardio: Rate: regular rate Rhythm: regular rhythm Heart sounds: S1 normal heart sound present and S2 normal heart sound present Bruits: no abdominal aortic bruits, no carotid bruits, no femoral bruits and no renal bruits GI: Palpation (GI): No Abdominal aortic bruit present Neuro: General: patient oriented x3 Cranial nerves: Yes CN's II-XII intact bilaterally Progress Note: A&P Assessment and plan (1) Thoracic aortic aneurysm: Status: Acute Assessment and Plan: Bi is doing well this morning. He has no concerns this morning and denies CP, diff breathing, and shortness of breath. The pt remains stable from a vascular standpoint. We highly recommend the pt follow up with his previous vascular surgeon in the [place] area after being discharged. We will continue to monitor. If there are any questions or concerns, please do not hesitate to reach out to us. Time Spent With Patient Time: Total time managing care of this patient today ____ minutes. Procedures Date of Service Date of Service: 01/01/25 Quality Stroke Does the patient have a stroke diagnosis?: No VTE Prior VTE?: No VTE Risk Level:: Medical - moderate - high VTE Device Contraindication: N/A - Device Ordered VTE Drug Contraindication: Treatment Not Indicated
[2025-01-01] MEDS: Folic Acid 1 MG TABLET PO (09:51)
[2025-01-01] MEDS: Cholecalciferol (Vitamin D3) 25 MCG TABLET PO (09:51)
[2025-01-01] MEDS: guaiFENesin LA 600 MG TAB.ER.12H PO ×2 (09:51→22:48)
[2025-01-01] MEDS: allopurinoL 100 MG TABLET PO (09:51)
[2025-01-01] MEDS: Benzonatate 100 MG CAPSULE 200 MG PO ×3 (09:51→22:48)
[2025-01-01] MEDS: 0.9 % Sodium Chloride Flush 3 ML SYRINGE IVFLUSH ×2 (09:51→15:42)
[2025-01-01] MEDS: Cyanocobalamin (Vitamin B-12) 1,000 MCG TABLET 1000 MCG PO (09:51)
--- NOTE | 2025-01-01 13:08 | HO.PM.IMPN ---
Subjective Subjective Date of Service: 01/01/25 Interval History: Seen and evaluated this morning looks comfortable Hb stable at 9 Radiology wont be able to do GI series today no other events Review of Systems Review of Systems: Yes all other systems are reviewed and are negative Physical Exam Vital Signs: Vital Signs: Last Vital Signs Temp 98.4 F 01/01/25 11:45 Pulse 65 01/01/25 11:45 Resp 20 01/01/25 11:45 BP 162/60 H 01/01/25 11:45 Pulse Ox 93 01/01/25 11:45 O2 Del Method Room Air 01/01/25 11:45 O2 Flow Rate 2 12/28/24 16:53 BMI result Body Mass Index 24.9 Const: Other: Constitutional : Awake, interactive, not in distress Neck : Normal inspection, Supple, Cardiovascular : RRR, no JVP, no lower extremity edema Respiratory : good bilateral air entry, no crackles, wheezes or rhonchi Gastrointestinal: soft, lax, Normal bowel sounds, Non tender Skin : Warm, Dry Neurological : Alert & oriented x3, No focal deficit Objective Data Active Medications Acetaminophen (Acetaminophen 325 Mg Tablet) 650 mg PO Q6H PRN PRN Reason: Pain, Mild 1-3,fever,headache Last Admin: 12/31/24 09:10 Dose: 650 mg Documented By: CANDICE Albuterol Sulfate (Albuterol Sulfate (0.083%) 2.5 Mg/3 Ml Vial.Neb) 2.5 mg INHALE RQ4H WHILE AWAKE [facility] Allopurinol (Allopurinol 100 Mg Tablet) 100 mg PO DAILY [facility] Last Admin: 01/01/25 09:51 Dose: 100 mg Documented By: NANCY Atorvastatin Calcium (Atorvastatin Calcium 80 Mg Tablet) 80 mg PO BEDTIME [facility] Last Admin: 12/31/24 21:09 Dose: 80 mg Documented By: JOSE Benzonatate (Benzonatate 100 Mg Capsule) 200 mg PO TID [facility] Last Admin: 01/01/25 09:51 Dose: 200 mg Documented By: NANCY Calcium Carbonate (Calcium Carbonate 750 Mg Tab.Chew) 750 mg PO Q4H PRN PRN Reason: Heartburn Cyanocobalamin (Cyanocobalamin (Vitamin B-12) 1,000 Mcg Tablet) 1,000 mcg PO DAILY [facility] Last Admin: 01/01/25 09:51 Dose: 1,000 mcg Documented By: NANCY Folic Acid (Folic Acid 1 Mg Tablet) 1 mg PO DAILY [facility] Last Admin: 01/01/25 09:51 Dose: 1 mg Documented By: NANCY Guaifenesin (Guaifenesin La 600 Mg Tab.Er.12h) 600 mg PO BID [facility] Last Admin: 01/01/25 09:51 Dose: 600 mg Documented By: NANCY Cefepime HCl 0.5 gm/ Sodium (Chloride) 50 mls @ 100 mls/hr IV Q24H [facility] Last Infusion: 12/31/24 21:06 Dose: Infused Documented By: JOSE Azithromycin 500 mg/ Sodium (Chloride) 250 mls @ 125 mls/hr IV Q24H [facility] Last Infusion: 12/31/24 19:29 Dose: Infused Documented By: CANDICE Levothyroxine Sodium (Levothyroxine Sodium 50 Mcg Tablet) 50 mcg PO DAILY@0600 [facility] Last Admin: 01/01/25 06:26 Dose: 50 mcg Documented By: JOSE Magnesium Hydroxide (Milk Of Magnesia 30 Ml Oral.Susp) 30 ml PO DAILY PRN PRN Reason: Constipation Last Admin: 12/31/24 18:56 Dose: 30 ml Documented By: CANDICE Melatonin (Melatonin 3 Mg Tablet) 6 mg PO BEDTIME PRN PRN Reason: Insomnia Last Admin: 12/31/24 21:09 Dose: 6 mg Documented By: JOSE Naloxone HCl (Naloxone Hcl 0.4 Mg/Ml Vial) 0.04 mg IVPUSH Q5M PRN PRN Reason: Excessive sedation or RR < 8 Ondansetron HCl (Ondansetron Hcl 4 Mg/2 Ml Vial) 4 mg IVPUSH Q8H PRN PRN Reason: Nausea and Vomiting Last Admin: 12/31/24 23:40 Dose: 4 mg Documented By: JOSE Pantoprazole Sodium (Pantoprazole Sodium 40 Mg/10 Ml Vial) 40 mg IVPUSH BID@0630,1630 [facility] Last Admin: 01/01/25 06:26 Dose: 40 mg Documented By: JOSE Sodium Chloride (0.9 % Sodium Chloride Flush 3 Ml Syringe) 3 ml IVFLUSH QSHIFT [facility] Last Admin: 01/01/25 09:51 Dose: 3 ml Documented By: NANCY Sucralfate (Sucralfate 1 Gm Tablet) 1 gm PO QIDACHS [facility] Last Admin: 01/01/25 12:53 Dose: 1 gm Documented By: NANCY Vitamin D (Cholecalciferol (Vitamin D3) 25 Mcg Tablet) 25 mcg PO DAILY [facility] Last Admin: 01/01/25 09:51 Dose: 25 mcg Documented By: NANCY Labs 01/01/25 06:53 12/31/24 06:45 Labs: Laboratory Results - last 24 hr 01/01/25 06:53 MCV 89.2 MCH 28.5 MCHC 31.9 RDW 18.1 H Plt Count 120 L D MPV 11.3 Immature Gran % (Auto) 0.2 Neut % (Auto) 49.6 Lymph % (Auto) 34.3 Ballard % (Auto) 10.0 Eos % (Auto) 5.0 H Baso % (Auto) 0.9 Lymph # (Auto) 1.9 [place] # (Auto) 0.5 Eos # (Auto) 0.3 Baso # (Auto) 0.1 Abs Immat Gran (auto) 0.01 Absolute Neuts (auto) 2.7 Absolute Nucleated RBC 0.000 Nucleated RBC % (auto) 0.0 Microbiology Microbiology Results: Microbiology 12/26/24 14:13 Blood Culture - Final Blood - Venous No growth after 5 days. 12/26/24 14:12 Blood Culture - Final Blood - Venous No growth after 5 days. Assessment and Plan (1) Thoracic aortic aneurysm: Status: Acute (2) Duodenal mass: Status: Acute (3) Duodenitis: Status: Acute (4) Esophagitis determined by endoscopy: Status: Acute (5) ESRD (end stage renal disease): Status: Acute Plan Pt is an 84-year-old [place] Islander-speaking male with a PMH significant for?ESRD on HD M/W/F, 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 Pt will be admitted to the hospital for treatment and further evaluation of acute symptomatic blood loss anemia likely secondary to UGIB. Acute symptomatic blood loss anemia secondary to UGIB from ulcerated duodenal ulcerated mass Hb improved to 8.3 after total of 4 units PRBCs EGD showed duodenal mass with ulceration and partial obstruction of stomach outlet, NG tube placed on suction Pathology pending GI series pending for tomorrow per radiology at 1030 Protonix IV b.i.d. on regular diet Surgery input appreciated, wait pathology results and upper GI studies. Options include local resection, bypass with gastrojejunostomy, or nonoperative management based on the pathologic results. GI following, plan for Colonoscopy morning Dilated Aortic arch aneurysm CXR reporting widening aneurysm to 7 CM CTA done showing Aneurysmal dilation of the thoracic aorta as above with short-segment dissection at the proximal portion of the aneurysms. Postprocedural changes as above. 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 Multifocal areas of consolidation within the lungs most characteristic of multifocal pneumonia. Discussed with [facility] vascular surgery 12/30 , did not feel its acute or need any urgent intervention Vascular input appreciated, follow as outpatient with his vascular surgery in [place] Monitor BP, tight control Hypotension resolved after IVF, midodrine, and transfusion Monitor BP Community-acquired pneumonia repeated CXR still showing IMER pneumonia No sepsis continue cefepime and azithromycin, started 12/26 ESRD On HD M// Follows with [facility] Nephrology consulted Monitor on telemetry CAD Continue statin Hold aspirin d/t acute blood loss anemia Hypothyroidism Continue levothyroxine Hx of gout Continue allopurinol Full Code DVT Prophylaxis: Pneumatic compression due to acute blood loss anemia Pt will require a hospitalization overnight for treatment of?symptomatic acute blood loss anemia likely secondary to UGIB. Pt will require hospital level care for close monitoring of CBC, electrolytes, and BP with transfusion as necessary, as well as IV PPI and GI and surgery follow up Quality Stroke Does the patient have a stroke diagnosis?: No VTE Prior VTE?: No VTE Risk Level:: Medical - moderate - high VTE Device Contraindication: N/A - Device Ordered VTE Drug Contraindication: Treatment Not Indicated
[2025-01-01] MEDS: Albuterol Sulfate (0.083%) 2.5 MG/3 ML VIAL.NEB INHALE ×3 (13:16→19:54)
--- NOTE | 2025-01-01 13:24 | P.CDIM_ITS ---
PROVIDER RESPONSE TEXT: To clarify, the appropriate diagnosis supported by the clinical indicators: Acute on chronic QUERY TEXT: PHYSICIAN'S DOCUMENTATION REQUEST Date of Query: 01/01/2025 09:56 AM EDT Patient Name: Bi Forrest Admit Date: 12/26/2024 Dear Estefany Sargent MD, A review of the medical record indicates additional documentation may be needed. Please review below and update the documentation accordingly. Clinical Indicators: Acute symptomatic blood loss anemia secondary to UGIB from ulcerated duodenal mass received blood transfusion biopsy of duodenal mass with pathology pending Clarify which of the following accurately represents the acuity of the ulcerated duodenal mass. Possible options might include: Acute Acute on chronic Compensated Chronic stable condition Remission Other (explain) Clinically unable to determine (explain) Thank you, Ladonna Georges RN Use of terms such as suspected, likely, concern for, or probable (associated with a specific diagnosi s that is being evaluated, monitored, or treated as if it exists) are acceptable and can be coded in the inpatient se tting, when documented at the time of discharge. Please use your independent medical judgment in providing your response. THIS QUERY IS PART OF THE PERMANENT MEDICAL RECORD
[2025-01-01] MEDS: cefEPime HCl 0.5 GM in 0.9 % Sodium Chloride 50 ML IV (14:07)
[2025-01-01] MEDS: Azithromycin 500 MG in 0.9 % Sodium Chloride 250 ML 125 MG IV (14:53)
[2025-01-01] MEDS: amLODIPine Besylate 2.5 MG TABLET PO (15:42)
[2025-01-01] MEDS: Atorvastatin Calcium 80 MG TABLET PO (22:48)
[2025-01-02] VITALS (12 sets, daily range): BP systolic 129–164; BP diastolic 60–75; PULSE 64–95; RESP 14–91; TEMP 36.3–37.2; O2SAT 90–98
[2025-01-02 04:49] LABS: Glucose, Whole Blood 95 mg/dL (60-115)
[2025-01-02] MEDS: Pantoprazole Sodium 40 MG/10 ML VIAL IVPUSH (06:14)
[2025-01-02 07:11] LABS: MANUAL DIFF FLAG NO
[2025-01-02 07:21] LABS: Basophils Absolute Auto 0.1 X10*3/uL (0.0-0.2); Basophils Percent Auto 0.8 % (0-2); Eosinophils Absolute Auto 0.3 X10*3/uL (0.0-0.4); Eosinophils Percent Auto 4.7 % (0-4); Hematocrit 28.1 % (42.0-52.0); Hemoglobin 9.1 g/dl (14.0-18.0); Imm Gran Abs Auto 0.01 X10*3/uL (0.00-0.03); Imm Gran Pct Auto 0.2 % (0.0-0.4); Lymphocytes Percent Auto 33.3 % (20-40); Mean Corpuscular HGB Conc 32.4 g/dl (31.0-36.0); Mean Corpuscular Volume 89.5 fL (80.0-98.0); Mean Platelet Volume 10.8 fL (9.4-12.4); Monocytes Absolute Auto 0.6 X10*3/uL (0.1-1.2); Monocytes Percent Auto 9.7 % (2-11); Neutrophils Absolute Auto 3.1 x10*3/uL (2.0-8.3); Neutrophils Percent Auto 51.3 % (45-73); Platelet Count 104 X10*3/uL (160-400); Red Blood Count 3.14 X10*6/uL (4.60-5.80)
[2025-01-02 07:37] LABS: Anion Gap 13 (12-20); Blood Urea Nitrogen 34 mg/dL (9-16); Carbon Dioxide 30 mmol/L (22-29); Chloride 100 mmol/L (96-108); Creatinine Clr Calc Pharmacy 9.6; Estimated Glomerular Filt Rate 10; Glucose Random 79 mg/dL (60-115); Potassium 3.8 mmol/L (3.3-5.1); Sodium 139 mmol/L (135-145)
[2025-01-02] MEDS: Albuterol Sulfate (0.083%) 2.5 MG/3 ML VIAL.NEB INHALE ×3 (07:52→19:48)
--- NOTE | 2025-01-02 11:05 | HO.PM.IMPN ---
Subjective Subjective Date of Service: 01/02/25 Interval History: no complaints Physical Exam Vital Signs: Vital Signs: Last Vital Signs Temp 97.8 F 01/02/25 07:38 Pulse 67 01/02/25 07:55 Resp 16 01/02/25 07:55 BP 130/75 01/02/25 07:38 Pulse Ox 98 01/02/25 07:38 O2 Del Method Room Air 01/02/25 07:38 O2 Flow Rate 2 12/28/24 16:53 BMI result Body Mass Index 24.9 Const: Other: Constitutional : Awake, interactive, not in distress Neck : Normal inspection, Supple, Cardiovascular : RRR, no JVP, no lower extremity edema Respiratory : good bilateral air entry, no crackles, wheezes or rhonchi Gastrointestinal: soft, lax, Normal bowel sounds, Non tender Skin : Warm, Dry Neurological : Alert & oriented x3, No focal deficit Objective Data Active Medications Acetaminophen (Acetaminophen 325 Mg Tablet) 650 mg PO Q6H PRN PRN Reason: Pain, Mild 1-3,fever,headache Last Admin: 12/31/24 09:10 Dose: 650 mg Documented By: CANDICE Albuterol Sulfate (Albuterol Sulfate (0.083%) 2.5 Mg/3 Ml Vial.Neb) 2.5 mg INHALE RQ4H WHILE AWAKE [facility] Last Admin: 01/02/25 07:52 Dose: 2.5 mg Documented By: ROLANDO Allopurinol (Allopurinol 100 Mg Tablet) 100 mg PO DAILY [facility] Last Admin: 01/02/25 09:19 Dose: Not Given Documented By: NANCY Non-Admin Reason: NPO Amlodipine Besylate (Amlodipine Besylate 2.5 Mg Tablet) 2.5 mg PO DAILY [facility]; Protocol Last Admin: 01/02/25 09:19 Dose: Not Given Documented By: NANCY Non-Admin Reason: NPO Atorvastatin Calcium (Atorvastatin Calcium 80 Mg Tablet) 80 mg PO BEDTIME [facility] Last Admin: 01/01/25 22:48 Dose: 80 mg Documented By: JOSE Benzonatate (Benzonatate 100 Mg Capsule) 200 mg PO TID [facility] Last Admin: 01/02/25 09:19 Dose: Not Given Documented By: NANCY Non-Admin Reason: NPO Calcium Carbonate (Calcium Carbonate 750 Mg Tab.Chew) 750 mg PO Q4H PRN PRN Reason: Heartburn Cyanocobalamin (Cyanocobalamin (Vitamin B-12) 1,000 Mcg Tablet) 1,000 mcg PO DAILY [facility] Last Admin: 01/02/25 09:20 Dose: Not Given Documented By: NANCY Non-Admin Reason: NPO Folic Acid (Folic Acid 1 Mg Tablet) 1 mg PO DAILY [facility] Last Admin: 01/02/25 09:20 Dose: Not Given Documented By: NANCY Non-Admin Reason: NPO Guaifenesin (Guaifenesin La 600 Mg Tab.Er.12h) 600 mg PO BID [facility] Last Admin: 01/02/25 09:20 Dose: Not Given Documented By: NANCY Non-Admin Reason: NPO Cefepime HCl 0.5 gm/ Sodium (Chloride) 50 mls @ 100 mls/hr IV Q24H [facility] Last Infusion: 01/01/25 15:41 Dose: Infused Documented By: NANCY Azithromycin 500 mg/ Sodium (Chloride) 250 mls @ 125 mls/hr IV Q24H [facility] Last Infusion: 01/01/25 17:20 Dose: Infused Documented By: NANCY Levothyroxine Sodium (Levothyroxine Sodium 50 Mcg Tablet) 50 mcg PO DAILY@0600 [facility] Last Admin: 01/02/25 06:14 Dose: Not Given Documented By: JOSE Non-Admin Reason: NPO Magnesium Hydroxide (Milk Of Magnesia 30 Ml Oral.Susp) 30 ml PO DAILY PRN PRN Reason: Constipation Last Admin: 12/31/24 18:56 Dose: 30 ml Documented By: CANDICE Melatonin (Melatonin 3 Mg Tablet) 6 mg PO BEDTIME PRN PRN Reason: Insomnia Last Admin: 12/31/24 21:09 Dose: 6 mg Documented By: JOSE Naloxone HCl (Naloxone Hcl 0.4 Mg/Ml Vial) 0.04 mg IVPUSH Q5M PRN PRN Reason: Excessive sedation or RR < 8 Ondansetron HCl (Ondansetron Hcl 4 Mg/2 Ml Vial) 4 mg IVPUSH Q8H PRN PRN Reason: Nausea and Vomiting Last Admin: 12/31/24 23:40 Dose: 4 mg Documented By: JOSE Sodium Chloride (0.9 % Sodium Chloride Flush 3 Ml Syringe) 3 ml IVFLUSH QSHIFT [facility] Last Admin: 01/02/25 10:03 Dose: Not Given Documented By: NANCY Non-Admin Reason: Previously Administered Sucralfate (Sucralfate 1 Gm Tablet) 1 gm PO QIDACHS [facility] Last Admin: 01/02/25 09:19 Dose: Not Given Documented By: NANCY Non-Admin Reason: NPO Vitamin D (Cholecalciferol (Vitamin D3) 25 Mcg Tablet) 25 mcg PO DAILY [facility] Last Admin: 01/02/25 09:20 Dose: Not Given Documented By: NANCY Non-Admin Reason: NPO Labs 01/02/25 06:37 01/02/25 06:37 Labs: Laboratory Results - last 24 hr 01/01/25 01/02/25 19:38 06:37 MCV 89.5 MCH 29.0 MCHC 32.4 RDW 18.0 H Plt Count 104 L MPV 10.8 Immature Gran % (Auto) 0.2 Neut % (Auto) 51.3 Lymph % (Auto) 33.3 [place] % (Auto) 9.7 Eos % (Auto) 4.7 H Baso % (Auto) 0.8 Lymph # (Auto) 2.0 [place] # (Auto) 0.6 Eos # (Auto) 0.3 Baso # (Auto) 0.1 Abs Immat Gran (auto) 0.01 Absolute Neuts (auto) 3.1 Absolute Nucleated RBC 0.000 Nucleated RBC % (auto) 0.0 Anion Gap 13 Estim Creat Clear Calc 9.6 Estimated GFR 10 POC Glucose 95 Random Glucose 79 Calcium 10.0 D Assessment and Plan (1) Thoracic aortic aneurysm: Status: Acute (2) Duodenal mass: Status: Acute (3) Duodenitis: Status: Acute (4) Esophagitis determined by endoscopy: Status: Acute (5) ESRD (end stage renal disease): Status: Acute Plan 84M PMH ?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 Pt noted to be anemic Acute symptomatic blood loss anemia secondary to UGIB from ulcerated duodenal ulcerated mass Hb improved/stable 8-9 after total of 4 units PRBCs EGD showed duodenal mass with ulceration and partial obstruction of stomach outlet, NG tube placed on suction Pathology pending GI series ppi on regular diet Surgery input appreciated, wait pathology results and upper GI studies. Options include local resection, bypass with gastrojejunostomy, or nonoperative management based on the pathologic results. GI following, plan for Colonoscopy morning 01/03/25 Dilated Aortic arch aneurysm CXR reporting widening aneurysm to 7 CM CTA done showing Aneurysmal dilation of the thoracic aorta as above with short-segment dissection at the proximal portion of the aneurysms. Postprocedural changes as above. 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 Multifocal areas of consolidation within the lungs most characteristic of multifocal pneumonia. Discussed with [facility] vascular surgery 12/30 , did not feel its acute or need any urgent intervention Vascular input appreciated, follow as outpatient with his vascular surgery in [place] Monitor BP, tight control Hypotension resolved after IVF, midodrine, and transfusion Monitor BP Community-acquired pneumonia repeated CXR still showing IMER pneumonia No sepsis continue cefepime and azithromycin, started 12/26 ESRD On HD M// Follows with [facility] consulted Monitor on telemetry CAD Continue statin Hold aspirin d/t acute blood loss anemia Hypothyroidism Continue levothyroxine Hx of gout Continue allopurinol Full Code DVT Prophylaxis: Pneumatic compression due to acute blood loss anemia reason for continued hospitalization:working up duodenal mass Quality Stroke Does the patient have a stroke diagnosis?: No VTE Prior VTE?: No VTE Risk Level:: Medical - moderate - high VTE Device Contraindication: N/A - Device Ordered VTE Drug Contraindication: Treatment Not Indicated
[2025-01-02] MEDS: Sucralfate 1 GM TABLET PO ×3 (11:47→21:36)
--- NOTE | 2025-01-02 14:15 | P.PNGI_ITS ---
Subjective Subjective Date of Service: 01/02/25 Interval History: Seen in dialysis. Had UGIS completed see results below. No obstruction. Pt also tolerating diet. Path of duodenal mass pending. [place] booked for tmrw Critical Care Time (minutes): 0 Physical Exam 2 Vital Signs: Vital Signs: Last Vital Signs Temp 98.2 F 01/03/25 11:03 Pulse 68 01/03/25 11:03 Resp 18 01/03/25 11:03 BP 141/63 H 01/03/25 11:03 Pulse Ox 96 01/03/25 11:03 O2 Del Method Room Air 01/03/25 11:03 O2 Flow Rate 2 12/28/24 16:53 BMI result Body Mass Index 24.9 NAD Nonicteric abd nontender nondistended Objective Data Labs 01/03/25 08:56 01/03/25 08:56 Labs: Laboratory Results - last 24 hr 01/03/25 08:56 WBC 7.5 RBC 2.98 L Hgb 8.7 L Hct 26.2 L MCV 87.9 MCH 29.2 MCHC 33.2 RDW 17.8 H Plt Count 90 L MPV TNP Absolute Nucleated RBC 0.000 Nucleated RBC % (auto) 0.0 Sodium 140 Potassium 4.2 Chloride 103 Carbon Dioxide 28 Anion Gap 13 BUN 19 H Creatinine 3.60 H Estim Creat Clear Calc 15.0 Estimated GFR 16 Random Glucose 82 Calcium 9.8 Imaging UGIS: Radiologist's impression: 1. Markedly limited examination. The patient was unable to stand, lie prone or supine, nor position themselves appropriately for the examination. 2. Patulous esophagus with markedly disordered esophageal motility. Granular type mucosal pattern in the distal one half of the esophagus suggesting esophagitis. 3. Feline esophageal contraction pattern noted in keeping with chronic reflux. Patulous GE junction. Small to moderate-sized type I hiatus hernia. 4. Limited evaluation of the stomach and duodenum. There is a suggestion of diffuse gastric rugal fold thickening, suggesting gastritis. 5. Filling defect in the duodenal bulb, in keeping with the known duodenal mass. No significant gastric outlet obstruction to contrast outflow. Microbiology Microbiology Results: Microbiology 12/26/24 14:13 Blood - Venous Blood Culture - Final No growth after 5 days. 12/26/24 14:12 Blood - Venous Blood Culture - Final No growth after 5 days. Procedures Date of Service Date of Service: 01/02/25 Progress Note: A&P Assessment and plan (1) Duodenal mass: Status: Acute (2) Duodenitis: Status: Acute (3) Anemia: Status: Acute Plan Pt with further drop in H/H despite healing ulceration of duodenal mass and no esophagitis on most recent egd. Booked for [place] tmrw. Plan: - Keep on CLD today - PEG prep to start this evening - Can be on CLD till 10 am tmrw and then strict NPO - Maintain x2 IV access at all times - Recheck CBC tmrw Late entry - pt was seen and evaluated on 01/02. Time Spent With Patient Time: Total time managing care of this patient today ____ minutes. Quality Stroke Does the patient have a stroke diagnosis?: No VTE Prior VTE?: No VTE Risk Level:: Medical - moderate - high VTE Device Contraindication: N/A - Device Ordered VTE Drug Contraindication: Treatment Not Indicated
[2025-01-02] MEDS: Omeprazole 40 MG CAPSULE.DR PO (15:52)
[2025-01-02] MEDS: Benzonatate 100 MG CAPSULE 200 MG PO ×2 (15:52→21:36)
[2025-01-02] MEDS: Acetaminophen 325 MG TABLET 650 MG PO (15:53)
--- NOTE | 2025-01-02 16:01 | MHC.CM.PN ---
EMR reviewed and per MD rounds, pt is not medically cleared for discharge due to work up of duodenal mass.
[2025-01-02] MEDS: PEG 3350/Na Sulf,Bicarb,Cl/KCL 4,000 ML SOLN.RECON 4000 ML PO (16:30)
[2025-01-02] MEDS: Azithromycin 500 MG in 0.9 % Sodium Chloride 250 ML 125 MG IV (16:40)
[2025-01-02] MEDS: 0.9 % Sodium Chloride Flush 3 ML SYRINGE IVFLUSH ×2 (16:41→21:36)
[2025-01-02] MEDS: cefEPime HCl 0.5 GM in 0.9 % Sodium Chloride 50 ML IV (21:35)
[2025-01-02] MEDS: guaiFENesin LA 600 MG TAB.ER.12H PO (21:36)
[2025-01-02] MEDS: Atorvastatin Calcium 80 MG TABLET PO (21:36)
[2025-01-03] VITALS (9 sets, daily range): BP systolic 135–163; BP diastolic 63–86; PULSE 66–79; RESP 14–19; TEMP 36.7–37.2; O2SAT 92–99
--- NOTE | 2025-01-03 07:51 | PM.EVENT ---
Event Note Date of Service: 01/03/25 Event Note: Reviewed GI study. Evidence of esophageal dysmotility, chronic reflux. Filling defect noted in duodenum but no obstruction to indicate GOO. Awaiting pathology results from EGD. We will continue to monitor. Time Spent With Patient Time: Total time managing care of this patient today ____ minutes.
[2025-01-03] MEDS: Albuterol Sulfate (0.083%) 2.5 MG/3 ML VIAL.NEB INHALE ×2 (07:55→15:30)
[2025-01-03 09:17] LABS: Hematocrit 26.2 % (42.0-52.0); Hemoglobin 8.7 g/dl (14.0-18.0); Mean Corpuscular HGB Conc 33.2 g/dl (31.0-36.0); Mean Corpuscular Hemoglobin 29.2 pg (27.0-33.0); Mean Corpuscular Volume 87.9 fL (80.0-98.0); PLT CLUMP 1; Red Blood Count 2.98 X10*6/uL (4.60-5.80); Red Cell Distribution Width 17.8 % (11.0-16.0)
[2025-01-03] MEDS: 0.9 % Sodium Chloride Flush 3 ML SYRINGE IVFLUSH ×2 (09:28→15:58)
[2025-01-03 09:29] LABS: Anion Gap 13 (12-20); Blood Urea Nitrogen 19 mg/dL (9-16); Calcium 9.8 mg/dL (8.4-10.2); Carbon Dioxide 28 mmol/L (22-29); Chloride 103 mmol/L (96-108); Estimated Glomerular Filt Rate 16; Glucose Random 82 mg/dL (60-115); Potassium 4.2 mmol/L (3.3-5.1); Sodium 140 mmol/L (135-145)
[2025-01-03 09:57] LABS: Platelet Count 90 X10*3/uL (160-400); White Blood Count 7.5 X10*3/uL (4.8-10.8)
--- NOTE | 2025-01-03 10:27 | P.PNNP_ITS ---
Subjective Subjective Date of Service: 01/02/25 Interval history: Seen and examined, events noted Physical Exam 2 Vital Signs: Vital Signs: Last Vital Signs Temp 98.0 F 01/03/25 07:14 Pulse 79 01/03/25 07:57 Resp 18 01/03/25 07:57 BP 135/86 01/03/25 07:14 Pulse Ox 96 01/03/25 07:14 O2 Del Method Room Air 01/03/25 07:14 O2 Flow Rate 2 12/28/24 16:53 BMI result Body Mass Index 24.9 Const: General: alert and awake HEENT: Head: Yes normocephalic and Yes atraumatic Neck: Neck: Yes supple Resp: Auscultation: diminished lung sounds Cardio: Heart sounds: S1 normal heart sound present and S2 normal heart sound present GI: Palpation (GI): Soft to palpation and nontender Extrem: General: Yes normal to inspection Objective Data Labs 01/03/25 08:56 01/03/25 08:56 Labs: Laboratory Results - last 24 hr 01/03/25 08:56 WBC 7.5 RBC 2.98 L Hgb 8.7 L Hct 26.2 L MCV 87.9 MCH 29.2 MCHC 33.2 RDW 17.8 H Plt Count 90 L MPV TNP Absolute Nucleated RBC 0.000 Nucleated RBC % (auto) 0.0 Sodium 140 Potassium 4.2 Chloride 103 Carbon Dioxide 28 Anion Gap 13 BUN 19 H Creatinine 3.60 H Estim Creat Clear Calc 15.0 Estimated GFR 16 Random Glucose 82 Calcium 9.8 Microbiology Microbiology Results: Microbiology 12/26/24 14:13 Blood - Venous Blood Culture - Final No growth after 5 days. 12/26/24 14:12 Blood - Venous Blood Culture - Final No growth after 5 days. Procedures Date of Service Date of Service: 01/03/25 Assessment & Plan Assessment and plan (1) ESRD (end stage renal disease): Status: Acute (2) GIB (gastrointestinal bleeding): Status: Acute (3) Anemia: Status: Acute Plan known ESRD on HD -- at [facility] followed by Dr Rob admitted with GIB nephrogenic anemia + UGIB REC HD ordered for mwf follow h/h transfuse for Hb < 7 PPI GI consult and w/u as noted P binders MAGDALENA will follow w team Time Spent With Patient Time: Total time managing care of this patient today ____ minutes. Progress Note: Quality Stroke Does the patient have a stroke diagnosis?: No
--- NOTE | 2025-01-03 11:29 | P.PNIM_ITS ---
Subjective Subjective Date of Service: 01/03/25 Interval History: no complaints Physical Exam 2 Vital Signs: Vital Signs: Last Vital Signs Temp 98.2 F 01/03/25 11:03 Pulse 68 01/03/25 11:03 Resp 18 01/03/25 11:03 BP 141/63 H 01/03/25 11:03 Pulse Ox 96 01/03/25 11:03 O2 Del Method Room Air 01/03/25 11:03 O2 Flow Rate 2 12/28/24 16:53 BMI result Body Mass Index 24.9 Const: General: alert and awake HEENT: Head: Yes normocephalic and Yes atraumatic Neck: Neck: Yes supple Resp: Auscultation: diminished lung sounds Cardio: Heart sounds: S1 normal heart sound present and S2 normal heart sound present GI: Palpation (GI): Soft to palpation and nontender Extrem: General: Yes normal to inspection Objective Data Active Medications Acetaminophen (Acetaminophen 325 Mg Tablet) 650 mg PO Q6H PRN PRN Reason: Pain, Mild 1-3,fever,headache Last Admin: 01/02/25 15:53 Dose: 650 mg Documented By: NANCY Albuterol Sulfate (Albuterol Sulfate (0.083%) 2.5 Mg/3 Ml Vial.Neb) 2.5 mg INHALE RQ4H WHILE AWAKE [facility] Last Admin: 01/03/25 11:22 Dose: Not Given Documented By: ROLANDO Non-Admin Reason: Patient Asleep Allopurinol (Allopurinol 100 Mg Tablet) 100 mg PO DAILY [facility] Last Admin: 01/03/25 09:17 Dose: Not Given Documented By: EDWINA Non-Admin Reason: NPO Amlodipine Besylate (Amlodipine Besylate 2.5 Mg Tablet) 2.5 mg PO DAILY [facility]; Protocol Last Admin: 01/03/25 09:17 Dose: Not Given Documented By: EDWINA Non-Admin Reason: NPO Atorvastatin Calcium (Atorvastatin Calcium 80 Mg Tablet) 80 mg PO BEDTIME [facility] Last Admin: 01/02/25 21:36 Dose: 80 mg Documented By: FAVIOLA-JOZEB Benzonatate (Benzonatate 100 Mg Capsule) 200 mg PO TID [facility] Last Admin: 01/03/25 09:17 Dose: Not Given Documented By: EDWINA Non-Admin Reason: NPO Calcium Carbonate (Calcium Carbonate 750 Mg Tab.Chew) 750 mg PO Q4H PRN PRN Reason: Heartburn Cyanocobalamin (Cyanocobalamin (Vitamin B-12) 1,000 Mcg Tablet) 1,000 mcg PO DAILY [facility] Last Admin: 01/03/25 09:18 Dose: Not Given Documented By: EDWINA Non-Admin Reason: NPO Folic Acid (Folic Acid 1 Mg Tablet) 1 mg PO DAILY [facility] Last Admin: 01/03/25 09:18 Dose: Not Given Documented By: EDWINA Non-Admin Reason: NPO Guaifenesin (Guaifenesin La 600 Mg Tab.Er.12h) 600 mg PO BID [facility] Last Admin: 01/03/25 09:18 Dose: Not Given Documented By: EDWINA Non-Admin Reason: NPO Azithromycin 500 mg/ Sodium (Chloride) 250 mls @ 125 mls/hr IV Q24H [facility] Last Infusion: 01/02/25 19:17 Dose: Infused Documented By: NANCY Cefepime HCl 0.5 gm/ Sodium (Chloride) 50 mls @ 100 mls/hr IV Q24H [facility] Last Infusion: 01/02/25 22:09 Dose: Infused Documented By: ISHAN Levothyroxine Sodium (Levothyroxine Sodium 50 Mcg Tablet) 50 mcg PO DAILY@0600 [facility] Last Admin: 01/03/25 04:49 Dose: Not Given Documented By: ISHAN Non-Admin Reason: NPO Magnesium Hydroxide (Milk Of Magnesia 30 Ml Oral.Susp) 30 ml PO DAILY PRN PRN Reason: Constipation Last Admin: 12/31/24 18:56 Dose: 30 ml Documented By: CANDICE Melatonin (Melatonin 3 Mg Tablet) 6 mg PO BEDTIME PRN PRN Reason: Insomnia Last Admin: 12/31/24 21:09 Dose: 6 mg Documented By: JOSE Naloxone HCl (Naloxone Hcl 0.4 Mg/Ml Vial) 0.04 mg IVPUSH Q5M PRN PRN Reason: Excessive sedation or RR < 8 Omeprazole (Omeprazole 40 Mg Capsule.Dr) 40 mg PO BID@0630,1630 [facility] Last Admin: 01/03/25 04:50 Dose: Not Given Documented By: ISHAN Non-Admin Reason: NPO Ondansetron HCl (Ondansetron Hcl 4 Mg/2 Ml Vial) 4 mg IVPUSH Q8H PRN PRN Reason: Nausea and Vomiting Last Admin: 12/31/24 23:40 Dose: 4 mg Documented By: JOSE Sodium Chloride (0.9 % Sodium Chloride Flush 3 Ml Syringe) 3 ml IVFLUSH QSHIFT [facility] Last Admin: 01/03/25 09:28 Dose: 3 ml Documented By: EDWINA Sucralfate (Sucralfate 1 Gm Tablet) 1 gm PO QIDACHS [facility] Last Admin: 01/03/25 09:53 Dose: Not Given Documented By: EDWINA Non-Admin Reason: NPO Vitamin D (Cholecalciferol (Vitamin D3) 25 Mcg Tablet) 25 mcg PO DAILY [facility] Last Admin: 01/03/25 09:18 Dose: Not Given Documented By: EDWINA Non-Admin Reason: NPO Labs 01/03/25 08:56 01/03/25 08:56 Labs: Laboratory Results - last 24 hr 01/03/25 08:56 MCV 87.9 MCH 29.2 MCHC 33.2 RDW 17.8 H Plt Count 90 L MPV TNP Absolute Nucleated RBC 0.000 Nucleated RBC % (auto) 0.0 Anion Gap 13 Estim Creat Clear Calc 15.0 Estimated GFR 16 Random Glucose 82 Calcium 9.8 Assessment and Plan (1) Thoracic aortic aneurysm: Status: Acute (2) Duodenal mass: Status: Acute (3) Duodenitis: Status: Acute (4) Esophagitis determined by endoscopy: Status: Acute (5) ESRD (end stage renal disease): Status: Acute Plan 84M PMH ?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 Pt noted to be anemic Acute symptomatic blood loss anemia secondary to UGIB from ulcerated duodenal ulcerated mass Hb improved/stable 8-9 after total of 4 units PRBCs EGD showed duodenal mass with ulceration and partial obstruction of stomach outlet, NG tube placed on suction Pathology pending GI series 01/02 - see report ppi on regular diet Surgery input appreciated, wait pathology results and upper GI studies. Options include local resection, bypass with gastrojejunostomy, or nonoperative management based on the pathologic results. GI following, plan for Colonoscopy Today 01/03/25 Dilated Aortic arch aneurysm CXR reporting widening aneurysm to 7 CM CTA done showing Aneurysmal dilation of the thoracic aorta as above with short- segment dissection at the proximal portion of the aneurysms. Postprocedural changes as above. 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 Multifocal areas of consolidation within the lungs most characteristic of multifocal pneumonia. Discussed with [facility] vascular surgery 12/30 , did not feel its acute or need any urgent intervention Vascular input appreciated, follow as outpatient with his vascular surgery in [place] Monitor BP, tight control Hypotension resolved after IVF, midodrine, and transfusion Monitor BP Community-acquired pneumonia repeated CXR still showing IMER pneumonia No sepsis continue cefepime and azithromycin, started 12/26 ESRD On HD M/W/F Follows with [facility] consulted Monitor on telemetry CAD Continue statin Hold aspirin d/t acute blood loss anemia Hypothyroidism Continue levothyroxine Hx of gout Continue allopurinol Full Code DVT Prophylaxis: Pneumatic compression due to acute blood loss anemia reason for continued hospitalization:working up duodenal mass Quality Stroke Does the patient have a stroke diagnosis?: No VTE Prior VTE?: No VTE Risk Level:: Medical - moderate - high VTE Device Contraindication: N/A - Device Ordered VTE Drug Contraindication: Treatment Not Indicated
--- NOTE | 2025-01-03 14:25 | HO.ANESPROP2 ---
[facility] Active Problems Active Problems: All Active Problems Thoracic aortic aneurysm (Acute) Duodenal mass (Acute) Duodenitis (Acute) Esophagitis determined by endoscopy (Acute) Hematemesis (Acute) Anemia (Acute) GIB (gastrointestinal bleeding) (Acute) ESRD (end stage renal disease) (Acute) Acute blood loss anemia (Acute) Left upper lobe pneumonia (Acute) Acute on chronic anemia (Acute) Melena (Acute) MSSA bacteremia (Acute) Gram-positive bacteremia (Acute) Macrocytic anemia (Acute) Encephalopathy (Acute) Uremia (Acute) Acute on chronic kidney failure (Acute) Acute hyperkalemia (Acute) Dysphagia (Acute) Past Medical History Medical History ESRD (end stage renal disease) Anemia CKD (chronic kidney disease) stage 5, GFR less than 15 ml/min MSSA bacteremia Dialysis patient COVID-19 vaccine administered Renal failure COPD (chronic obstructive pulmonary disease) Thyroid disease GERD (gastroesophageal reflux disease) Elevated cholesterol PVD (peripheral vascular disease) Prostate CA HTN (hypertension) Heart attack Family History Family history of problems with anesthesia: No Surgical History Surgical History Hx of cataract surgery Hx of cystoscopy History of incision and drainage H/O colonoscopy Hx of aortic valve replacement Hx of CABG History of Problems with Anesthesia: No Social History Social History Household Members: Children Household Members Other:: son Housing: Apartment Are you a primary career professional to a significant other at home: No Do you presently have visiting nurse or other home services: No Alcohol intake: never Comment: Surgeon informed that all counts were correct Patient Tobacco Use Status: Never used Tobacco e-Cigarette/Vaping Use: Never Used Second Hand Smoke Exposure: No Advance Directives Date on File: 12/05/24 service: No Current occupational status: disabled Meds Allergies Allergy/AdvReac Type Severity Reaction Status Date / Time No Known Allergies Allergy Mild NONE Verified 12/26/24 13:59 Active Medications: Current Medications Acetaminophen (Acetaminophen 325 Mg Tablet) 650 mg PO Q6H PRN PRN Reason: Pain, Mild 1-3,fever,headache Last Admin: 01/02/25 15:53 Dose: 650 mg Albuterol Sulfate (Albuterol Sulfate (0.083%) 2.5 Mg/3 Ml Vial.Neb) 2.5 mg INHALE RQ4H WHILE AWAKE [facility] Last Admin: 01/03/25 11:22 Dose: Not Given Allopurinol (Allopurinol 100 Mg Tablet) 100 mg PO DAILY [facility] Last Admin: 01/03/25 09:17 Dose: Not Given Amlodipine Besylate (Amlodipine Besylate 2.5 Mg Tablet) 2.5 mg PO DAILY [facility]; Protocol Last Admin: 01/03/25 09:17 Dose: Not Given Atorvastatin Calcium (Atorvastatin Calcium 80 Mg Tablet) 80 mg PO BEDTIME [facility] Last Admin: 01/02/25 21:36 Dose: 80 mg Benzonatate (Benzonatate 100 Mg Capsule) 200 mg PO TID [facility] Last Admin: 01/03/25 09:17 Dose: Not Given Calcium Carbonate (Calcium Carbonate 750 Mg Tab.Chew) 750 mg PO Q4H PRN PRN Reason: Heartburn Cyanocobalamin (Cyanocobalamin (Vitamin B-12) 1,000 Mcg Tablet) 1,000 mcg PO DAILY [facility] Last Admin: 01/03/25 09:18 Dose: Not Given Folic Acid (Folic Acid 1 Mg Tablet) 1 mg PO DAILY [facility] Last Admin: 01/03/25 09:18 Dose: Not Given Guaifenesin (Guaifenesin La 600 Mg Tab.Er.12h) 600 mg PO BID [facility] Last Admin: 01/03/25 09:18 Dose: Not Given Azithromycin 500 mg/ Sodium (Chloride) 250 mls @ 125 mls/hr IV Q24H [facility] Last Infusion: 01/02/25 19:17 Dose: Infused Cefepime HCl 0.5 gm/ Sodium (Chloride) 50 mls @ 100 mls/hr IV Q24H [facility] Last Infusion: 01/02/25 22:09 Dose: Infused Levothyroxine Sodium (Levothyroxine Sodium 50 Mcg Tablet) 50 mcg PO DAILY@0600 [facility] Last Admin: 01/03/25 04:49 Dose: Not Given Magnesium Hydroxide (Milk Of Magnesia 30 Ml Oral.Susp) 30 ml PO DAILY PRN PRN Reason: Constipation Last Admin: 12/31/24 18:56 Dose: 30 ml Melatonin (Melatonin 3 Mg Tablet) 6 mg PO BEDTIME PRN PRN Reason: Insomnia Last Admin: 12/31/24 21:09 Dose: 6 mg Naloxone HCl (Naloxone Hcl 0.4 Mg/Ml Vial) 0.04 mg IVPUSH Q5M PRN PRN Reason: Excessive sedation or RR < 8 Omeprazole (Omeprazole 40 Mg Capsule.Dr) 40 mg PO BID@0630,1630 [facility] Last Admin: 01/03/25 04:50 Dose: Not Given Ondansetron HCl (Ondansetron Hcl 4 Mg/2 Ml Vial) 4 mg IVPUSH Q8H PRN PRN Reason: Nausea and Vomiting Last Admin: 12/31/24 23:40 Dose: 4 mg Sodium Chloride (0.9 % Sodium Chloride Flush 3 Ml Syringe) 3 ml IVFLUSH QSHIFT [facility] Last Admin: 01/03/25 09:28 Dose: 3 ml Sucralfate (Sucralfate 1 Gm Tablet) 1 gm PO QIDACHS [facility] Last Admin: 01/03/25 09:53 Dose: Not Given Vitamin D (Cholecalciferol (Vitamin D3) 25 Mcg Tablet) 25 mcg PO DAILY [facility] Last Admin: 01/03/25 09:18 Dose: Not Given Home Medications ?Medication ?Instructions ?Recorded ?Confirmed ?Last Taken ?Type allopurinol 100 mg tablet 100 mg PO DAILY 12/30/20 12/26/24 12/26/24 History aspirin 81 mg tablet,delayed 81 mg PO DAILY 12/30/20 12/26/24 12/26/24 History release atorvastatin 80 mg tablet 80 mg PO BEDTIME 12/30/20 12/26/24 12/26/24 History cholecalciferol (vitamin D3) 25 25 mcg PO DAILY 12/30/20 12/26/24 12/26/24 History mcg (1,000 unit) capsule (Vitamin D3) levothyroxine 50 mcg tablet 50 mcg PO DAILY@0600 12/30/20 12/26/24 12/26/24 History cyanocobalamin (vitamin B-12) 1,000 mcg PO DAILY 06/10/23 12/26/24 12/26/24 History 1,000 mcg tablet guaifenesin 400 mg tablet (Chest 400 mg PO Q6H PRN cough 12/04/24 12/26/24 Unknown History Congestion Relief) Exam Height,Weight and Vital Signs: Height 5 ft 9 in Weight 76.5 kg Last Vital Signs Temp 98.0 F 01/03/25 14:13 Pulse 66 01/03/25 14:13 Resp 14 01/03/25 14:13 BP 163/65 H 01/03/25 14:13 Pulse Ox 94 01/03/25 14:13 O2 Del Method Room Air 01/03/25 14:13 O2 Flow Rate 2 12/28/24 16:53 Pertinent Lab Results Pertinent Lab Results: Laboratory Tests 12/26/24 12/26/24 12/26/24 14:10 14:12 14:29 WBC 8.7 RBC 2.06 L D Hgb 5.9 L* D Hct 18.5 L* D MCV 89.8 MCH 28.6 MCHC 31.9 RDW 21.0 H Plt Count 136 L MPV 11.7 Immature Gran % (Auto) 0.2 Neut % (Auto) 64.1 Lymph % (Auto) 27.1 [place] % (Auto) 7.5 Eos % (Auto) 0.6 Baso % (Auto) 0.5 Lymph # (Auto) 2.4 [place] # (Auto) 0.7 Eos # (Auto) 0.1 Baso # (Auto) 0.0 Abs Immat Gran (auto) 0.02 Absolute Neuts (auto) 5.6 Absolute Nucleated RBC 0.000 Nucleated RBC % (auto) 0.0 Smear Path Review SEE NOTE Sodium 139 Potassium 3.4 D Chloride 98 Carbon Dioxide 33 H Anion Gap 11 L BUN 34 H Creatinine 3.42 H Estim Creat Clear Calc 15.7 Estimated GFR 17 POC Glucose Random Glucose 98 Lactic Acid 1.6 Calcium 9.2 D Magnesium 1.6 Total Bilirubin 0.5 Direct Bilirubin 0.1 AST 24 ALT 8 Alkaline Phosphatase 57 Troponin I High Sens 31.8 C-Reactive Protein 2.58 H B-Natriuretic Peptide 249 H Total Protein 5.8 L Albumin 2.8 L Lipase 41 Stool Occult Blood NEGATIVE Influenza Type A (PCR) NEGATIVE Influenza Type B (PCR) NEGATIVE RSV RNA Qual (PCR) NEGATIVE SARS-CoV-2 RNA (RT-PCR) NEGATIVE Blood Type A Positive Antibody Screen NEGATIVE Crossmatch See Detail 12/26/24 12/27/24 12/28/24 18:58 04:21 07:31 WBC 8.5 6.9 RBC 2.52 L D 2.49 L Hgb 7.2 L D 7.2 L Hct 21.6 L 21.7 L MCV 85.7 87.1 MCH 28.6 28.9 MCHC 33.3 33.2 RDW 19.0 H 19.2 H Plt Count 95 L D 103 L MPV Not Reportable 12.8 H Immature Gran % (Auto) 0.3 Neut % (Auto) 58.5 Lymph % (Auto) 27.5 [place] % (Auto) 8.9 Eos % (Auto) 4.2 H Baso % (Auto) 0.6 Lymph # (Auto) 1.9 [place] # (Auto) 0.6 Eos # (Auto) 0.3 Baso # (Auto) 0.0 Abs Immat Gran (auto) 0.02 Absolute Neuts (auto) 4.0 Absolute Nucleated RBC 0.000 0.000 Nucleated RBC % (auto) 0.0 0.0 Smear Path Review Sodium 140 138 Potassium 3.9 Chloride 101 Carbon Dioxide 29 Anion Gap 14 BUN 49 H Creatinine 4.06 H* Estim Creat Clear Calc 13.3 Estimated GFR 14 POC Glucose Random Glucose 79 Lactic Acid Calcium 9.6 Magnesium Total Bilirubin Direct Bilirubin AST ALT Alkaline Phosphatase Troponin I High Sens C-Reactive Protein B-Natriuretic Peptide Total Protein Albumin Lipase Stool Occult Blood POSITIVE Influenza Type A (PCR) Influenza Type B (PCR) RSV RNA Qual (PCR) SARS-CoV-2 RNA (RT-PCR) Blood Type Antibody Screen Crossmatch 12/28/24 12/28/24 12/28/24 07:31 07:31 07:31 WBC RBC Hgb Hct MCV MCH MCHC RDW Plt Count MPV Immature Gran % (Auto) Neut % (Auto) Lymph % (Auto) [place] % (Auto) Eos % (Auto) Baso % (Auto) Lymph # (Auto) [place] # (Auto) Eos # (Auto) Baso # (Auto) Abs Immat Gran (auto) Absolute Neuts (auto) Absolute Nucleated RBC Nucleated RBC % (auto) Smear Path Review Sodium Cancelled Potassium 4.0 Cancelled Chloride 100 Cancelled Carbon Dioxide 28 Anion Gap BUN Creatinine Estim Creat Clear Calc Estimated GFR POC Glucose Random Glucose Lactic Acid Calcium Magnesium Total Bilirubin Direct Bilirubin AST ALT Alkaline Phosphatase Troponin I High Sens C-Reactive Protein B-Natriuretic Peptide Total Protein Albumin Lipase Stool Occult Blood Influenza Type A (PCR) Influenza Type B (PCR) RSV RNA Qual (PCR) SARS-CoV-2 RNA (RT-PCR) Blood Type Antibody Screen Crossmatch 12/28/24 12/28/24 12/28/24 07:31 07:31 07:31 WBC RBC Hgb Hct MCV MCH MCHC RDW Plt Count MPV Immature Gran % (Auto) Neut % (Auto) Lymph % (Auto) [place] % (Auto) Eos % (Auto) Baso % (Auto) Lymph # (Auto) [place] # (Auto) Eos # (Auto) Baso # (Auto) Abs Immat Gran (auto) Absolute Neuts (auto) Absolute Nucleated RBC Nucleated RBC % (auto) Smear Path Review Sodium Potassium Chloride Carbon Dioxide Cancelled Anion Gap 14 Cancelled BUN 66 H Cancelled Creatinine 5.69 H* Estim Creat Clear Calc Estimated GFR POC Glucose Random Glucose Lactic Acid Calcium Magnesium Total Bilirubin Direct Bilirubin AST ALT Alkaline Phosphatase Troponin I High Sens C-Reactive Protein B-Natriuretic Peptide Total Protein Albumin Lipase Stool Occult Blood Influenza Type A (PCR) Influenza Type B (PCR) RSV RNA Qual (PCR) SARS-CoV-2 RNA (RT-PCR) Blood Type Antibody Screen Crossmatch 12/28/24 12/28/24 12/28/24 07:31 07:31 07:31 WBC RBC Hgb Hct MCV MCH MCHC RDW Plt Count MPV Immature Gran % (Auto) Neut % (Auto) Lymph % (Auto) [place] % (Auto) Eos % (Auto) Baso % (Auto) Lymph # (Auto) [place] # (Auto) Eos # (Auto) Baso # (Auto) Abs Immat Gran (auto) Absolute Neuts (auto) Absolute Nucleated RBC Nucleated RBC % (auto) Smear Path Review Sodium Potassium Chloride Carbon Dioxide Anion Gap BUN Creatinine Cancelled Estim Creat Clear Calc 9.4 Cancelled Estimated GFR 10 Cancelled POC Glucose Random Glucose 90 Lactic Acid Calcium Magnesium Total Bilirubin Direct Bilirubin AST ALT Alkaline Phosphatase Troponin I High Sens C-Reactive Protein B-Natriuretic Peptide Total Protein Albumin Lipase Stool Occult Blood Influenza Type A (PCR) Influenza Type B (PCR) RSV RNA Qual (PCR) SARS-CoV-2 RNA (RT-PCR) Blood Type Antibody Screen Crossmatch 12/28/24 12/28/24 12/28/24 07:31 07:31 12:29 WBC 6.5 RBC 2.63 L Hgb 7.6 L Hct 22.4 L MCV 85.2 MCH 28.9 MCHC 33.9 RDW 19.1 H Plt Count 145 L D MPV 12.2 Immature Gran % (Auto) Neut % (Auto) Lymph % (Auto) [place] % (Auto) Eos % (Auto) Baso % (Auto) Lymph # (Auto) [place] # (Auto) Eos # (Auto) Baso # (Auto) Abs Immat Gran (auto) Absolute Neuts (auto) Absolute Nucleated RBC 0.000 Nucleated RBC % (auto) 0.0 Smear Path Review Sodium Potassium Chloride Carbon Dioxide Anion Gap BUN Creatinine Estim Creat Clear Calc Estimated GFR POC Glucose Random Glucose Cancelled Lactic Acid Calcium 10.4 H D Cancelled Magnesium Total Bilirubin Direct Bilirubin AST ALT Alkaline Phosphatase Troponin I High Sens C-Reactive Protein B-Natriuretic Peptide Total Protein Albumin Lipase Stool Occult Blood Influenza Type A (PCR) Influenza Type B (PCR) RSV RNA Qual (PCR) SARS-CoV-2 RNA (RT-PCR) Blood Type Antibody Screen Crossmatch 12/28/24 12/29/24 12/30/24 18:18 06:36 08:13 WBC 5.3 3.6 L RBC 2.53 L 1.76 L D Hgb 7.3 L 5.1 L* D Hct 22.2 L 16.5 L* D MCV 87.7 93.8 D MCH 28.9 29.0 MCHC 32.9 30.9 L RDW 19.2 H 19.1 H Plt Count 105 L D 86 L MPV 11.4 11.3 Immature Gran % (Auto) 0.4 Neut % (Auto) 60.0 Lymph % (Auto) 25.6 [place] % (Auto) 10.5 Eos % (Auto) 2.6 Baso % (Auto) 0.9 Lymph # (Auto) 1.4 [place] # (Auto) 0.6 Eos # (Auto) 0.1 Baso # (Auto) 0.1 Abs Immat Gran (auto) 0.02 Absolute Neuts (auto) 3.2 Absolute Nucleated RBC 0.000 0.000 Nucleated RBC % (auto) 0.0 0.0 Smear Path Review SEE NOTE Sodium 141 Potassium 3.4 Chloride 104 Carbon Dioxide 30 H Anion Gap 10 L BUN 26 H Creatinine 3.63 H Estim Creat Clear Calc 14.8 Estimated GFR 16 POC Glucose 76 Random Glucose 86 Lactic Acid Calcium 9.6 D Magnesium Total Bilirubin Direct Bilirubin AST ALT Alkaline Phosphatase Troponin I High Sens C-Reactive Protein B-Natriuretic Peptide Total Protein Albumin Lipase Stool Occult Blood Influenza Type A (PCR) Influenza Type B (PCR) RSV RNA Qual (PCR) SARS-CoV-2 RNA (RT-PCR) Blood Type Antibody Screen Crossmatch 12/30/24 12/30/24 12/30/24 10:03 10:26 17:12 WBC 5.7 RBC 2.57 L D Hgb 7.5 L D Hct 23.0 L D MCV 89.5 MCH 29.2 MCHC 32.6 RDW 18.6 H Plt Count 101 L MPV 10.6 Immature Gran % (Auto) Neut % (Auto) Lymph % (Auto) [place] % (Auto) Eos % (Auto) Baso % (Auto) Lymph # (Auto) [place] # (Auto) Eos # (Auto) Baso # (Auto) Abs Immat Gran (auto) Absolute Neuts (auto) Absolute Nucleated RBC 0.000 Nucleated RBC % (auto) 0.0 Smear Path Review Sodium Potassium Chloride Carbon Dioxide Anion Gap BUN Creatinine Estim Creat Clear Calc Estimated GFR POC Glucose Random Glucose Lactic Acid Calcium Magnesium Total Bilirubin Direct Bilirubin AST ALT Alkaline Phosphatase Troponin I High Sens C-Reactive Protein B-Natriuretic Peptide Total Protein Albumin Lipase Stool Occult Blood Influenza Type A (PCR) NEGATIVE Influenza Type B (PCR) NEGATIVE RSV RNA Qual (PCR) NEGATIVE SARS-CoV-2 RNA (RT-PCR) NEGATIVE Blood Type A Positive Antibody Screen NEGATIVE Crossmatch See Detail 12/31/24 01/01/25 01/01/25 06:45 06:53 19:38 WBC 5.1 5.4 RBC 2.80 L 3.16 L Hgb 8.3 L 9.0 L Hct 24.6 L 28.2 L MCV 87.9 89.2 MCH 29.6 28.5 MCHC 33.7 31.9 RDW 17.8 H 18.1 H Plt Count 92 L 120 L D MPV TNP 11.3 Immature Gran % (Auto) 0.4 0.2 Neut % (Auto) 47.7 49.6 Lymph % (Auto) 34.6 34.3 [place] % (Auto) 11.8 H 10.0 Eos % (Auto) 4.7 H 5.0 H Baso % (Auto) 0.8 0.9 Lymph # (Auto) 1.8 1.9 [place] # (Auto) 0.6 0.5 Eos # (Auto) 0.2 0.3 Baso # (Auto) 0.0 0.1 Abs Immat Gran (auto) 0.02 0.01 Absolute Neuts (auto) 2.4 2.7 Absolute Nucleated RBC 0.000 0.000 Nucleated RBC % (auto) 0.0 0.0 Smear Path Review Sodium 138 Potassium 3.4 Chloride 106 Carbon Dioxide 24 Anion Gap 11 L BUN 38 H Creatinine 5.61 H* Estim Creat Clear Calc 9.6 Estimated GFR 10 POC Glucose 95 Random Glucose 66 Lactic Acid Calcium 9.4 Magnesium Total Bilirubin Direct Bilirubin AST ALT Alkaline Phosphatase Troponin I High Sens C-Reactive Protein B-Natriuretic Peptide Total Protein Albumin Lipase Stool Occult Blood Influenza Type A (PCR) Influenza Type B (PCR) RSV RNA Qual (PCR) SARS-CoV-2 RNA (RT-PCR) Blood Type Antibody Screen Crossmatch 01/02/25 01/03/25 06:37 08:56 WBC 6.0 7.5 RBC 3.14 L 2.98 L Hgb 9.1 L 8.7 L Hct 28.1 L 26.2 L MCV 89.5 87.9 MCH 29.0 29.2 MCHC 32.4 33.2 RDW 18.0 H 17.8 H Plt Count 104 L 90 L MPV 10.8 TNP Immature Gran % (Auto) 0.2 Neut % (Auto) 51.3 Lymph % (Auto) 33.3 [place] % (Auto) 9.7 Eos % (Auto) 4.7 H Baso % (Auto) 0.8 Lymph # (Auto) 2.0 [place] # (Auto) 0.6 Eos # (Auto) 0.3 Baso # (Auto) 0.1 Abs Immat Gran (auto) 0.01 Absolute Neuts (auto) 3.1 Absolute Nucleated RBC 0.000 0.000 Nucleated RBC % (auto) 0.0 0.0 Smear Path Review Sodium 139 140 Potassium 3.8 4.2 Chloride 100 103 Carbon Dioxide 30 H 28 Anion Gap 13 13 BUN 34 H 19 H Creatinine 5.59 H* 3.60 H Estim Creat Clear Calc 9.6 15.0 Estimated GFR 10 16 POC Glucose Random Glucose 79 82 Lactic Acid Calcium 10.0 D 9.8 Magnesium Total Bilirubin Direct Bilirubin AST ALT Alkaline Phosphatase Troponin I High Sens C-Reactive Protein B-Natriuretic Peptide Total Protein Albumin Lipase Stool Occult Blood Influenza Type A (PCR) Influenza Type B (PCR) RSV RNA Qual (PCR) SARS-CoV-2 RNA (RT-PCR) Blood Type Antibody Screen Crossmatch Airway Mallampati Class: III TM Dist: >3cm Neck ROM: Full Denture: Upper and Lower Assessment and Plan Assessment Anesthesia Assessment: Anesthesia Plan Discussed and Chart Reviewed Final Anesthetic Review Family History of Problems with Anesthesia: No History of Problems with Anesthesia: No NPO: Yes ASA Class: IV Final Preanesthetic Review: No Changes in Pt Med Stat, Meds/Allgs Chart Reviewed, Consent Obtained/Reviewed and Anes Risks/Benef Reviewed Patient Risk: High Procedure Risk: Low Anesthetic Plan Anesthetic Plan: TIVA Disposition: Standard PACU
--- NOTE | 2025-01-03 14:28 | MHC.SHP ---
Pre-Procedural Eval Section A - 24 Hr Update-Section A only Date of Service: 01/03/25 The patient is an INPATIENT: Yes The patient has been examined within 24 hours of the surgical procedure. The History & Physical has been completed within 30 days and I have reviewed it.: Yes Section B - Complete if H&P > 30 days Chief Complaint: INPT. Acute blood loss anemia Allergies: Allergies Allergy/AdvReac Type Severity Reaction Status Date / Time No Known Allergies Allergy Mild NONE Verified 12/26/24 13:59 Plan Diagnosis/Plan: Unchanged I have reviewed the history and physical and performed a pertinent physical examination on my patient. No changes have occurred unless specified. Time Spent With Patient Time: Total time managing care of this patient today ____ minutes.
[2025-01-03] MEDS: Sodium Phosphate,Mono-Dibasic 133 ML ENEMA PR (14:34)
--- NOTE | 2025-01-03 15:21 | PC.NURSE ---
Pt arrived from floor. Macedonian speaking. AXOX3. Per RN January ([id number]), pt completed prep but no stool today during her shift since 7am. Per Dr. Andre Fleet enema administered. Pt with dark quiles/brown water stool w/pieces of soft stool noted in bed arias. Pt with productive cough, thick white sputum noted. Pt spitting up independently in basin during time in pre op. All VSS. Per Dr. Andre, procedure cx. Anesthesia, Marina also stated pt could not be intubated and would receive mild sedation for procedure/Dr. Arroyo agree w/plan. Pt advised of all information in Macedonian. Per Dr. Andre at bedside explained to pt. Pt verbalized understanding stating that, Dr. Andre you know best . Pt returned via BED back to room. Report given to PM RN, Lisa Shrestha.
[2025-01-03] MEDS: Benzonatate 100 MG CAPSULE 200 MG PO ×2 (15:58→21:17)
[2025-01-03] MEDS: Sucralfate 1 GM TABLET PO ×2 (15:58→21:17)
[2025-01-03] MEDS: Omeprazole 40 MG CAPSULE.DR PO (15:58)
[2025-01-03] MEDS: Azithromycin 500 MG in 0.9 % Sodium Chloride 250 ML 125 MG IV (15:58)
[2025-01-03] MEDS: cefEPime HCl 0.5 GM in 0.9 % Sodium Chloride 50 ML IV (21:04)
[2025-01-03] MEDS: Atorvastatin Calcium 80 MG TABLET PO (21:17)
[2025-01-03] MEDS: guaiFENesin LA 600 MG TAB.ER.12H PO (21:21)
[2025-01-04] VITALS (10 sets, daily range): BP systolic 104–156; BP diastolic 50–72; PULSE 68–86; RESP 16–20; TEMP 36.4–37.1; O2SAT 90–100
[2025-01-04] MEDS: 0.9 % Sodium Chloride Flush 3 ML SYRINGE IVFLUSH ×4 (01:13→21:01)
[2025-01-04] MEDS: Omeprazole 40 MG CAPSULE.DR PO ×2 (06:03→16:21)
[2025-01-04] MEDS: Levothyroxine Sodium 50 MCG TABLET PO (06:03)
[2025-01-04] MEDS: Albuterol Sulfate (0.083%) 2.5 MG/3 ML VIAL.NEB INHALE ×3 (07:57→19:04)
[2025-01-04] MEDS: Sucralfate 1 GM TABLET PO ×3 (08:25→21:01)
[2025-01-04] MEDS: Benzonatate 100 MG CAPSULE 200 MG PO ×3 (08:25→21:01)
[2025-01-04] MEDS: Cyanocobalamin (Vitamin B-12) 1,000 MCG TABLET 1000 MCG PO (08:25)
[2025-01-04] MEDS: Cholecalciferol (Vitamin D3) 25 MCG TABLET PO (08:25)
[2025-01-04] MEDS: guaiFENesin LA 600 MG TAB.ER.12H PO ×2 (08:25→21:01)
[2025-01-04] MEDS: Folic Acid 1 MG TABLET PO (08:25)
[2025-01-04] MEDS: allopurinoL 100 MG TABLET PO (08:25)
--- NOTE | 2025-01-04 09:40 | PM.DS ---
DS: Providers Provider Date of Service: 01/05/25 Date of admission: 12/26/24 18:25 Date of discharge: 01/05/25 Primary care physician: Adriane Higuera MD Consults: 12/26/24 18:25 Consult to Gastroenterology Routine Consulting Provider: Jude Hameed Reason for consultation: Acute blood loss anemia 12/26/24 18:53 Consult to Nephrology Routine Consulting Provider: [facility] Reason for consultation: ESRD on HD MWF 12/29/24 08:01 Consult to General Surgery Routine Consulting Provider: [facility] General Surgeons Reason for consultation: Duodenal mass. 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 The pt states he felt overall unwell this morning with a few episodes of nausea and vomiting. Reports some flecks of blood in vomitus as well as with cough. Pt went to hemodialysis earlier in the day and received 2 hours of treatment before it was stopped due to low BP. Pt was then sent to the ED for further evaluation. Pt states he felt lightheaded and dizzy after dialysis, though not before. Has noticed black-colored stools for the past few days. Overall pt is a rather vague and poor historian. Denies abdominal pain. No chest pain/pressure, palpitations. Denies shortness or breath or difficulty breathing. No fever, chills. Pt's stool examines at bedside which appears melenic in nature. Of note, pt was recently admitted to the hospital from 12/04-12/06 for similar symptoms. Pt underwent EGD which found evidence of erosive esophagitis, atrophic gastritis, and erosive duodenitis. Pt was discharged home on PPI 40 mg b.i.d. x1 month and Carafate x2 weeks. In the ED pt was initially hypotensive as low as 83/50, improved to 120 5/57 after transfusion and fluids. Labs were significant for H&H 5.9/18, otherwise grossly unremarkable around baseline for pt. Stool negative for occult blood. No leukocytosis. Creatinine 3.42 (improved from baseline of around 5.50). No significant electrolyte abnormalities. Lactic acid WNL. Hepatic function baseline. Troponin WNL. Tested negative for flu, COVID, RSV. CXR showed left lobe. EKG demonstrated sinus rhythm with first-degree AV block but no evidence of significant ischemic changes. Pt was treated with midodrine, Protonix, IVF, cefepime, and azithromycin, and trasfused 2 units PRBCs. Pt will be admitted to the hospital for treatment and further evaluation of acute symptomatic blood loss anemia likely secondary to UGIB. Hospital course : Patient was admitted for acute symptomatic blood loss anemia secondary to upper GI bleed from ulcerated duodenal mass. Received total 4 units PRBC and hemoglobin stabilized between 8 and 9. 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 We will continue on PPI and Carafate. Initially there was plan for colonoscopy, however prep was unsuccessful. Given high-risk due to thoracic aortic aneurysm will defer colonoscopy for now. 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 For multifocal pneumonia with risk factors for Gram-negative bacteria was treated with course of cefepime and azithromycin. For end-stage renal disease was continued on hemodialysis. For coronary artery disease was continued on statin, aspirin was held due to GI bleed. For hypothyroidism was continued on levothyroxine. For history of gout was continued on allopurinol. Patient is feeling better will be discharged home with services. Time Attestation Discharge Coordination Time (in mins): 34 Quality: Safe Use of Opioids Does Pt have an Active Cancer Diagnosis on the Problem List?: No Quality: Stroke Does the patient have a stroke diagnosis?: No Physical Exam Vital Signs: Vital Signs: Last Vital Signs Temp 97.6 F 01/04/25 07:29 Pulse 86 01/04/25 08:07 Resp 18 01/04/25 08:07 BP 133/72 01/04/25 07:29 Pulse Ox 96 01/04/25 07:29 O2 Del Method Room Air 01/04/25 07:29 O2 Flow Rate 2 12/28/24 16:53 BMI result Body Mass Index 24.9 NAD Nonicteric abd nontender nondistended DS: Data Data Completed and Pending Completed studies during hospitalization [Text1]: Procedures Excision of Left Lower Arm Skin, External Approach (05/30/24) Excision of Stomach, Pylorus, Via Natural or Artificial Opening Endoscopic, Diagnostic (12/04/24) Insertion of Infusion Device into Superior Vena Cava, Percutaneous Approach (01/12/21) Insertion of Tunneled Vascular Access Device into Chest Subcutaneous Tissue and Fascia, Percutaneous Approach (01/12/21) Introduction of Anesthetic Agent into Peripheral Nerves and Plexi, Percutaneous Approach (05/30/24) Introduction of Vasopressor into Peripheral Vein, Percutaneous Approach (05/30/24) Performance of Urinary Filtration, Intermittent, Less than 6 Hours Per Day (12/04/24) Restriction of Left Cephalic Vein, Open Approach (05/30/24) Transfusion of Nonautologous Red Blood Cells into Peripheral Vein, Percutaneous Approach (05/30/24) Ultrasonography of Superior Vena Cava, Guidance (01/12/21) Pending studies at discharge: Pending at discharge 12/28/24 16:26 Surgical [PTH] Routine Labs on day of discharge: Laboratory Results - last 24 hr 01/03/25 08:56 WBC 7.5 RBC 2.98 L Hgb 8.7 L Hct 26.2 L MCV 87.9 MCH 29.2 MCHC 33.2 RDW 17.8 H Plt Count 90 L MPV TNP Absolute Nucleated RBC 0.000 Nucleated RBC % (auto) 0.0 Discharge Plan Discharge Anticipated Discharge Date/Time: 01/05/25 09:57 Patient Disposition: Home Health Service Discharge Diagnosis: Acute on chronic blood loss anemia GI Bleeding, duodenal ulcerated mass Referrals: [facility] [Outside] - 1 Day (HOME PHYSICAL THERAPY) Carina Huizar MD [Physician] - 3-5 Days (carcinoid) Adriane Higuera MD [Primary Care Provider] - 01/08/25 9:30 am (You have a follow up visit scheduled. If you can not make the appointment, call doctors office to reschedule. ) Felicitas Andre MD [Physician] - 1 Week Discharge Medications: New omeprazole 40 mg Capsule,Delayed Release(Dr/Ec) 40 mg PO BID@0630,1630 Qty: 180 0RF Continued atorvastatin 80 mg tablet 80 mg PO BEDTIME allopurinol 100 mg tablet 100 mg PO DAILY levothyroxine 50 mcg tablet 50 mcg PO DAILY@0600 cholecalciferol (vitamin D3) [Vitamin D3] 25 mcg (1,000 unit) Capsule 25 mcg PO DAILY folic acid 1 mg tablet 1 mg PO DAILY Qty: 30 0RF sucralfate [Carafate] 1 gram tablet 1 g PO QIDACHS 14 Days Qty: 56 0RF guaifenesin [Chest Congestion Relief] 400 mg tablet 400 mg PO Q6H PRN (Reason: cough) cyanocobalamin (vitamin B-12) 1,000 mcg tablet 1,000 mcg PO DAILY Discontinued aspirin 81 mg tablet,delayed release (DR/EC) 81 mg PO DAILY pantoprazole 40 mg tablet,delayed release (DR/EC) 40 mg PO BID 30 Days Qty: 60 0RF Discharge Orders: Discharge Order (Routine); Ordered 01/05/25 Ordered By: Saman Florez Diet: Advance to usual diet Activity on Discharge: As tolerated Stand Alone Forms: Patient Portal Discharge page Print Language: Algerian Care Plan Goals: recovery Health Concerns: Duodenal mass - carcinoid, thoracic aorta aneursym Plan of Treatment: Follow up with oncology - dr huizar if needing possible surgery to relieve gastric outlet obstruction if recurs would be done at tertiary center, follow up with vascular surgery, continue PPI, Carafate Assessment: as above
--- NOTE | 2025-01-04 09:47 | W.MHC.F2F ---
Service Date Service Date: 01/05/25 Encounter Date of encounter: 01/05/25 Reasons for Services Signs and symptoms assessed: Weakness due to hospital stay Reason for halfway: medication management, medication treatment and teach disease management Reason for physical therapy: home safety and mobility and therapeutic exercises Homebound: Leaving the home is medically contraindicated at this time without the asist of a device and/or another person due th the listed conditions above and below. Reason homebound: weakness related to hospital stay Certification: Based on the above findings, I certify that this patient is confined to the home and needs intermittent halfway care, physical therapy and/or speech therapy, or continues to need occupational therapy. The patient is under my care, and I have initiated the establishment of the plan of care. The patient will be followed by a physician who will periodically review the plan of care. Time Spent With Patient Time: Total time managing care of this patient today ____ minutes.
--- NOTE | 2025-01-04 09:47 | MHC.CM.PN ---
PT TO DC HOME TODAY WITH [facility] TO TRANSPORT
--- NOTE | 2025-01-04 14:10 | P.PNIM_ITS ---
Subjective Subjective Date of Service: 01/04/25 Interval History: n/v after hd Physical Exam 2 Vital Signs: Vital Signs: Last Vital Signs Temp 98.1 F 01/04/25 14:05 Pulse 72 01/04/25 14:05 Resp 17 01/04/25 14:05 BP 140/63 H 01/04/25 14:05 Pulse Ox 96 01/04/25 14:05 O2 Del Method Room Air 01/04/25 14:05 O2 Flow Rate 2 12/28/24 16:53 BMI result Body Mass Index 24.9 NAD Nonicteric abd nontender nondistended Objective Data Active Medications Acetaminophen (Acetaminophen 325 Mg Tablet) 650 mg PO Q6H PRN PRN Reason: Pain, Mild 1-3,fever,headache Last Admin: 01/02/25 15:53 Dose: 650 mg Documented By: NANCY Albuterol Sulfate (Albuterol Sulfate (0.083%) 2.5 Mg/3 Ml Vial.Neb) 2.5 mg INHALE RQ4H WHILE AWAKE [facility] Last Admin: 01/04/25 11:47 Dose: Not Given Documented By: ROLANDO Non-Admin Reason: Off unit: Dialysis Allopurinol (Allopurinol 100 Mg Tablet) 100 mg PO DAILY [facility] Last Admin: 01/04/25 08:25 Dose: 100 mg Documented By: ANDRÉS Amlodipine Besylate (Amlodipine Besylate 2.5 Mg Tablet) 2.5 mg PO DAILY [facility]; Protocol Last Admin: 01/04/25 09:00 Dose: Not Given Documented By: ANDRÉS Non-Admin Reason: Hold as pt going to Dialysis Atorvastatin Calcium (Atorvastatin Calcium 80 Mg Tablet) 80 mg PO BEDTIME [facility] Last Admin: 01/03/25 21:17 Dose: 80 mg Documented By: BRETT Benzonatate (Benzonatate 100 Mg Capsule) 200 mg PO TID QUINTIN Last Admin: 01/04/25 08:25 Dose: 200 mg Documented By: ANDRÉS Calcium Carbonate (Calcium Carbonate 750 Mg Tab.Chew) 750 mg PO Q4H PRN PRN Reason: Heartburn Cyanocobalamin (Cyanocobalamin (Vitamin B-12) 1,000 Mcg Tablet) 1,000 mcg PO DAILY [facility] Last Admin: 01/04/25 08:25 Dose: 1,000 mcg Documented By: ANDRÉS Folic Acid (Folic Acid 1 Mg Tablet) 1 mg PO DAILY [facility] Last Admin: 01/04/25 08:25 Dose: 1 mg Documented By: ANDRÉS Guaifenesin (Guaifenesin La 600 Mg Tab.Er.12h) 600 mg PO BID [facility] Last Admin: 01/04/25 08:25 Dose: 600 mg Documented By: ANDRÉS Azithromycin 500 mg/ Sodium (Chloride) 250 mls @ 125 mls/hr IV Q24H [facility] Last Infusion: 01/03/25 18:03 Dose: Infused Documented By: TAY Cefepime HCl 0.5 gm/ Sodium (Chloride) 50 mls @ 100 mls/hr IV Q24H [facility] Last Infusion: 01/03/25 21:35 Dose: Infused Documented By: BRETT Levothyroxine Sodium (Levothyroxine Sodium 50 Mcg Tablet) 50 mcg PO DAILY@0600 [facility] Last Admin: 01/04/25 06:03 Dose: 50 mcg Documented By: BRETT Magnesium Hydroxide (Milk Of Magnesia 30 Ml Oral.Susp) 30 ml PO DAILY PRN PRN Reason: Constipation Last Admin: 12/31/24 18:56 Dose: 30 ml Documented By: CANDICE Melatonin (Melatonin 3 Mg Tablet) 6 mg PO BEDTIME PRN PRN Reason: Insomnia Last Admin: 12/31/24 21:09 Dose: 6 mg Documented By: JOSE Naloxone HCl (Naloxone Hcl 0.4 Mg/Ml Vial) 0.04 mg IVPUSH Q5M PRN PRN Reason: Excessive sedation or RR < 8 Naloxone HCl (Naloxone Hcl 0.4 Mg/Ml Vial) 0.04 mg IVPUSH Q5M PRN PRN Reason: Excessive sedation or RR < 8 Omeprazole (Omeprazole 40 Mg Capsule.Dr) 40 mg PO BID@0630,1630 [facility] Last Admin: 01/04/25 06:03 Dose: 40 mg Documented By: BRETT Ondansetron HCl (Ondansetron Hcl 4 Mg/2 Ml Vial) 4 mg IVPUSH Q8H PRN PRN Reason: Nausea and Vomiting Last Admin: 12/31/24 23:40 Dose: 4 mg Documented By: JOSE Sodium Chloride (0.9 % Sodium Chloride Flush 3 Ml Syringe) 3 ml IVFLUSH QSHIFT [facility] Last Admin: 01/04/25 08:25 Dose: 3 ml Documented By: ANDRÉS Sucralfate (Sucralfate 1 Gm Tablet) 1 gm PO QIDACHS [facility] Last Admin: 01/04/25 12:39 Dose: Not Given Documented By: ANDRÉS Non-Admin Reason: Not In Room Vitamin D (Cholecalciferol (Vitamin D3) 25 Mcg Tablet) 25 mcg PO DAILY [facility] Last Admin: 01/04/25 08:25 Dose: 25 mcg Documented By: ANDRÉS Labs 01/03/25 08:56 01/03/25 08:56 Assessment and Plan (1) Thoracic aortic aneurysm: Status: Acute (2) Duodenal mass: Status: Acute (3) Duodenitis: Status: Acute (4) Esophagitis determined by endoscopy: Status: Acute (5) ESRD (end stage renal disease): Status: Acute Plan 84M PMH ?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 Pt noted to be anemic Acute symptomatic blood loss anemia secondary to UGIB from ulcerated duodenal ulcerated mass Hb improved/stable 8-9 after total of 4 units PRBCs EGD showed duodenal mass with ulceration and partial obstruction of stomach outlet, NG tube placed on suction Pathology pending GI series 01/02 - see report ppi on regular diet Surgery input appreciated, wait pathology results and upper GI studies. Options include local resection, bypass with gastrojejunostomy, or nonoperative management based on the pathologic results. colonscopy deferred for now due to poor prep Dilated Aortic arch aneurysm CXR reporting widening aneurysm to 7 CM CTA done showing Aneurysmal dilation of the thoracic aorta as above with short- segment dissection at the proximal portion of the aneurysms. Postprocedural changes as above. 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 Multifocal areas of consolidation within the lungs most characteristic of multifocal pneumonia. Discussed with [facility] vascular surgery 12/30 , did not feel its acute or need any urgent intervention Vascular input appreciated, follow as outpatient with his vascular surgery in [place] Monitor BP, tight control Hypotension resolved after IVF, midodrine, and transfusion Monitor BP Community-acquired pneumonia repeated CXR still showing IMER pneumonia No sepsis continue cefepime and azithromycin, started 12/26 ESRD On HD M/W/F Follows with [facility] Nephrology consulted Monitor on telemetry CAD Continue statin Hold aspirin d/t acute blood loss anemia Hypothyroidism Continue levothyroxine Hx of gout Continue allopurinol Full Code DVT Prophylaxis: Pneumatic compression due to acute blood loss anemia reason for continued hospitalization:n/v Quality Stroke Does the patient have a stroke diagnosis?: No VTE Prior VTE?: No VTE Risk Level:: Medical - moderate - high VTE Device Contraindication: N/A - Device Ordered VTE Drug Contraindication: Treatment Not Indicated
--- NOTE | 2025-01-04 16:08 | PM.EVENT ---
Event Note Date of Service: 01/04/25 Event Note: Path finalized on duodenal mass: Diagnosis Duodenum, mass, biopsy: - Duodenal mucosa with nests of well-differentiated neuroendocrine cells. - Background duodenal mucosa with marked chronic inflammatory change and hemosiderin deposition. See comment. Comment: The nests of neuroendocrine cells are present in two of the tissue fragments. A well- differentiated neuroendocrine tumor (carcinoid) may be accounting for the patient's obstructing mass. Please correlate with clinical and imaging findings Sections have duodenal mucosa with multiple small to medium-sized nests of bland ovoid/spindle cells, which are immunoreactive with synaptophysin and S100; they are non immunoreactive with chromogranin, actin, DARREN, CD34, CD117, CD68 or pancytokeratin; the proliferation index is very low with Ki-67 immunostain. Background plasma cells are prominent and are polytypic, supported by CD138 and kappa/lambda multi-immunostains Surgery (Dr Escamilla) had previously evaluated the pt and recommended: local resection, bypass with gastrojejunostomy, or nonoperative management based on the pathologic results. Surgical intervention may be difficult given the patient's advanced age and multiple medical issues. Will need outpatient follow up with vascular surgery (for high risk aortic aneurysm) and gen surgery as outpatient. Will also send msg to book follow up with his outpatient GI Dr Tafoya. Time Spent With Patient Time: Total time managing care of this patient today ____ minutes.
[2025-01-04] MEDS: Azithromycin 500 MG in 0.9 % Sodium Chloride 250 ML 125 MG IV (16:21)
--- NOTE | 2025-01-04 19:06 | P.PNNP_ITS ---
Subjective Subjective Date of Service: 12/06/24 Interval history: Seen and examined,e vents noted Physical Exam 2 Vital Signs: Vital Signs: Last Vital Signs Temp 98.3 F 01/04/25 15:07 Pulse 82 01/04/25 15:57 Resp 20 01/04/25 15:57 BP 133/61 01/04/25 15:07 Pulse Ox 96 01/04/25 15:07 O2 Del Method Room Air 01/04/25 15:07 O2 Flow Rate 2 12/28/24 16:53 BMI result Body Mass Index 24.9 Const: General: alert and awake HEENT: Head: Yes normocephalic and Yes atraumatic Neck: Neck: Yes supple Resp: Auscultation: diminished lung sounds Cardio: Heart sounds: S1 normal heart sound present and S2 normal heart sound present GI: Palpation (GI): Soft to palpation and nontender Extrem: General: Yes normal to inspection Objective Data Labs 01/03/25 08:56 01/03/25 08:56 Microbiology Microbiology Results: Microbiology 12/26/24 14:13 Blood - Venous Blood Culture - Final No growth after 5 days. 12/26/24 14:12 Blood - Venous Blood Culture - Final No growth after 5 days. Procedures Date of Service Date of Service: 01/04/25 Assessment & Plan Assessment and plan (1) ESRD (end stage renal disease): Status: Acute (2) GIB (gastrointestinal bleeding): Status: Acute (3) Anemia: Status: Acute Plan known ESRD on HD m-- at [facility] followed by Dr Rob admitted with GIB nephrogenic anemia + UGIB REC HD ordered for mwf follow h/h transfuse for Hb < 7 PPI GI consult and w/u as noted Vasc w/u as noted P binders MAGDALENA will follow w team Time Spent With Patient Time: Total time managing care of this patient today ____ minutes. Progress Note: Quality Stroke Does the patient have a stroke diagnosis?: No
--- NOTE | 2025-01-04 19:08 | P.PNNP_ITS ---
Subjective Subjective Date of Service: 01/04/25 Interval history: Seen and examined,e vents noted Physical Exam 2 Vital Signs: Vital Signs: Last Vital Signs Temp 98.3 F 01/04/25 15:07 Pulse 79 01/04/25 19:07 Resp 16 01/04/25 19:07 BP 133/61 01/04/25 15:07 Pulse Ox 96 01/04/25 15:07 O2 Del Method Room Air 01/04/25 15:07 O2 Flow Rate 2 12/28/24 16:53 BMI result Body Mass Index 24.9 Const: General: alert and awake HEENT: Head: Yes normocephalic and Yes atraumatic Neck: Neck: Yes supple Resp: Auscultation: diminished lung sounds Cardio: Heart sounds: S1 normal heart sound present and S2 normal heart sound present GI: Palpation (GI): Soft to palpation and nontender Extrem: General: Yes normal to inspection Objective Data Labs 01/03/25 08:56 01/03/25 08:56 Microbiology Microbiology Results: Microbiology 12/26/24 14:13 Blood - Venous Blood Culture - Final No growth after 5 days. 12/26/24 14:12 Blood - Venous Blood Culture - Final No growth after 5 days. Procedures Date of Service Date of Service: 01/04/25 Assessment & Plan Assessment and plan (1) ESRD (end stage renal disease): Status: Acute (2) GIB (gastrointestinal bleeding): Status: Acute (3) Anemia: Status: Acute Plan known ESRD on HD m-w- at [place] [facility] followed by Dr Rob admitted with GIB nephrogenic anemia + UGIB REC HD ordered for mwf follow h/h transfuse for Hb < 7 PPI GI consult and w/u as noted Vasc w/u as noted P binders MAGDALENA D/C planning will follow w team Time Spent With Patient Time: Total time managing care of this patient today ____ minutes. Progress Note: Quality Stroke Does the patient have a stroke diagnosis?: No
[2025-01-04] MEDS: ondansetron HCL 4 MG/2 ML VIAL IVPUSH (21:00)
[2025-01-04] MEDS: cefEPime HCl 0.5 GM in 0.9 % Sodium Chloride 50 ML IV (21:00)
[2025-01-04] MEDS: Atorvastatin Calcium 80 MG TABLET PO (21:01)
[2025-01-04] MEDS: Acetaminophen 325 MG TABLET 650 MG PO (21:16)
[2025-01-05 03:47] VITALS: BP 103/62; PULSE 74; RESP 19; TEMP 36.7; O2SAT 90
[2025-01-05] MEDS: Levothyroxine Sodium 50 MCG TABLET PO (05:13)
[2025-01-05] MEDS: Omeprazole 40 MG CAPSULE.DR PO ×2 (05:13→16:35)
[2025-01-05 06:53] LABS: Hematocrit 24.7 % (42.0-52.0); Mean Corpuscular HGB Conc 32.4 g/dl (31.0-36.0); Mean Corpuscular Hemoglobin 28.7 pg (27.0-33.0); Mean Corpuscular Volume 88.5 fL (80.0-98.0); Mean Platelet Volume 12.4 fL (9.4-12.4); Platelet Count 135 X10*3/uL (160-400); Red Blood Count 2.79 X10*6/uL (4.60-5.80); Red Cell Distribution Width 17.6 % (11.0-16.0); White Blood Count 5.1 X10*3/uL (4.8-10.8)
[2025-01-05 07:17] VITALS: BP 130/61; PULSE 67; RESP 20; TEMP 36.6; O2SAT 93
[2025-01-05 07:21] LABS: Alanine Aminotransferase 7 U/L (0-40); Albumin Level 2.7 g/dL (3.5-5.0); Alkaline Phosphatase 64 U/L (39-117); Anion Gap 10 (12-20); Aspartate Amino Transferase 36 U/L (5-37); Bilirubin Direct 0.2 mg/dL (0.0-0.5); Bilirubin Total 0.5 mg/dL (0.0-1.0); Blood Urea Nitrogen 23 mg/dL (9-16); Calcium 9.7 mg/dL (8.4-10.2); Carbon Dioxide 32 mmol/L (22-29); Chloride 101 mmol/L (96-108); Creatinine Clr Calc Pharmacy 14.5; Estimated Glomerular Filt Rate 16; Glucose Random 81 mg/dL (60-115); Magnesium 1.7 mg/dL (1.6-2.6); Potassium 3.5 mmol/L (3.3-5.1); Sodium 139 mmol/L (135-145); Total Protein 5.4 g/dL (6.5-8.0)
[2025-01-05] MEDS: allopurinoL 100 MG TABLET PO (08:55)
[2025-01-05] MEDS: Cholecalciferol (Vitamin D3) 25 MCG TABLET PO (08:55)
[2025-01-05] MEDS: guaiFENesin LA 600 MG TAB.ER.12H PO (08:55)
[2025-01-05] MEDS: Benzonatate 100 MG CAPSULE 200 MG PO ×2 (08:55→16:00)
[2025-01-05 08:56] VITALS: BP 128/76
[2025-01-05] MEDS: Cyanocobalamin (Vitamin B-12) 1,000 MCG TABLET 1000 MCG PO (08:56)
[2025-01-05] MEDS: amLODIPine Besylate 2.5 MG TABLET PO (08:56)
[2025-01-05] MEDS: Folic Acid 1 MG TABLET PO (08:56)
[2025-01-05] MEDS: Sucralfate 1 GM TABLET PO ×2 (08:56→12:31)
[2025-01-05] MEDS: Acetaminophen 325 MG TABLET 650 MG PO (08:57)
--- NOTE | 2025-01-05 10:08 | P.PNIM_ITS ---
Subjective Subjective Date of Service: 01/05/25 Interval History: nausea improved Physical Exam 2 Vital Signs: Vital Signs: Last Vital Signs Temp 97.9 F 01/05/25 07:17 Pulse 67 01/05/25 07:17 Resp 20 01/05/25 07:17 BP 128/76 01/05/25 08:56 Pulse Ox 93 01/05/25 07:17 O2 Del Method Room Air 01/05/25 07:17 O2 Flow Rate 2 12/28/24 16:53 BMI result Body Mass Index 24.9 Const: General: alert and awake HEENT: Head: Yes normocephalic and Yes atraumatic Neck: Neck: Yes supple Resp: Auscultation: diminished lung sounds Cardio: Heart sounds: S1 normal heart sound present and S2 normal heart sound present GI: Palpation (GI): Soft to palpation and nontender Extrem: General: Yes normal to inspection Objective Data Active Medications Acetaminophen (Acetaminophen 325 Mg Tablet) 650 mg PO Q6H PRN PRN Reason: Pain, Mild 1-3,fever,headache Last Admin: 01/05/25 08:57 Dose: 650 mg Documented By: JACK Albuterol Sulfate (Albuterol Sulfate (0.083%) 2.5 Mg/3 Ml Vial.Neb) 2.5 mg INHALE RQ4H WHILE AWAKE [facility] Last Admin: 01/05/25 07:40 Dose: Not Given Documented By: BELLA Non-Admin Reason: Patient Asleep Allopurinol (Allopurinol 100 Mg Tablet) 100 mg PO DAILY [facility] Last Admin: 01/05/25 08:55 Dose: 100 mg Documented By: JACK Amlodipine Besylate (Amlodipine Besylate 2.5 Mg Tablet) 2.5 mg PO DAILY [facility]; Protocol Last Admin: 01/05/25 08:56 Dose: 2.5 mg Documented By: JACK Atorvastatin Calcium (Atorvastatin Calcium 80 Mg Tablet) 80 mg PO BEDTIME [facility] Last Admin: 01/04/25 21:01 Dose: 80 mg Documented By: KAITY Benzonatate (Benzonatate 100 Mg Capsule) 200 mg PO TID [facility] Last Admin: 01/05/25 08:55 Dose: 200 mg Documented By: JACK Calcium Carbonate (Calcium Carbonate 750 Mg Tab.Chew) 750 mg PO Q4H PRN PRN Reason: Heartburn Cyanocobalamin (Cyanocobalamin (Vitamin B-12) 1,000 Mcg Tablet) 1,000 mcg PO DAILY [facility] Last Admin: 01/05/25 08:56 Dose: 1,000 mcg Documented By: JACK Folic Acid (Folic Acid 1 Mg Tablet) 1 mg PO DAILY [facility] Last Admin: 01/05/25 08:56 Dose: 1 mg Documented By: JACK Guaifenesin (Guaifenesin La 600 Mg Tab.Er.12h) 600 mg PO BID [facility] Last Admin: 01/05/25 08:55 Dose: 600 mg Documented By: JACK Azithromycin 500 mg/ Sodium (Chloride) 250 mls @ 125 mls/hr IV Q24H [facility] Last Infusion: 01/04/25 18:30 Dose: Infused Documented By: KAITY Cefepime HCl 0.5 gm/ Sodium (Chloride) 50 mls @ 100 mls/hr IV Q24H [facility] Last Infusion: 01/04/25 21:30 Dose: Infused Documented By: KAITY Levothyroxine Sodium (Levothyroxine Sodium 50 Mcg Tablet) 50 mcg PO DAILY@0600 [facility] Last Admin: 01/05/25 05:13 Dose: 50 mcg Documented By: KAITY Magnesium Hydroxide (Milk Of Magnesia 30 Ml Oral.Susp) 30 ml PO DAILY PRN PRN Reason: Constipation Last Admin: 12/31/24 18:56 Dose: 30 ml Documented By: CANDICE Melatonin (Melatonin 3 Mg Tablet) 6 mg PO BEDTIME PRN PRN Reason: Insomnia Last Admin: 12/31/24 21:09 Dose: 6 mg Documented By: JOSE Naloxone HCl (Naloxone Hcl 0.4 Mg/Ml Vial) 0.04 mg IVPUSH Q5M PRN PRN Reason: Excessive sedation or RR < 8 Naloxone HCl (Naloxone Hcl 0.4 Mg/Ml Vial) 0.04 mg IVPUSH Q5M PRN PRN Reason: Excessive sedation or RR < 8 Omeprazole (Omeprazole 40 Mg Capsule.) 40 mg PO BID@0630,1630 [facility] Last Admin: 01/05/25 05:13 Dose: 40 mg Documented By: KAITY Ondansetron HCl (Ondansetron Hcl 4 Mg/2 Ml Vial) 4 mg IVPUSH Q8H PRN PRN Reason: Nausea and Vomiting Last Admin: 01/04/25 21:00 Dose: 4 mg Documented By: KAITY Comments: reported nausea. Sodium Chloride (0.9 % Sodium Chloride Flush 3 Ml Syringe) 3 ml IVFLUSH QSHIFT [facility] Last Admin: 01/05/25 09:54 Dose: Not Given Documented By: JACK Non-Admin Reason: Previously Administered Sucralfate (Sucralfate 1 Gm Tablet) 1 gm PO QIDACHS [facility] Last Admin: 01/05/25 08:56 Dose: 1 gm Documented By: JACK Vitamin D (Cholecalciferol (Vitamin D3) 25 Mcg Tablet) 25 mcg PO DAILY [facility] Last Admin: 01/05/25 08:55 Dose: 25 mcg Documented By: JACK Labs 01/05/25 06:21 01/05/25 06:21 Labs: Laboratory Results - last 24 hr 01/05/25 06:21 MCV 88.5 MCH 28.7 MCHC 32.4 RDW 17.6 H Plt Count 135 L D MPV 12.4 Absolute Nucleated RBC 0.000 Nucleated RBC % (auto) 0.0 Anion Gap 10 L Estim Creat Clear Calc 14.5 Estimated GFR 16 Random Glucose 81 Calcium 9.7 Magnesium 1.7 Total Bilirubin 0.5 Direct Bilirubin 0.2 AST 36 ALT 7 Alkaline Phosphatase 64 Total Protein 5.4 L Albumin 2.7 L Assessment and Plan (1) Thoracic aortic aneurysm: Status: Acute (2) Duodenal mass: Status: Acute (3) Duodenitis: Status: Acute (4) Esophagitis determined by endoscopy: Status: Acute (5) ESRD (end stage renal disease): Status: Acute Plan 84M PMH ?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 Pt noted to be anemic Acute symptomatic blood loss anemia secondary to UGIB from ulcerated duodenal ulcerated mass Hb improved/stable 8-9 after total of 4 units PRBCs EGD showed duodenal mass with ulceration and partial obstruction of stomach outlet - now tolerating po, no obstruction on gi series, pathology showing carcinoid, - oncology eval GI series 3/26 - see report ppi colonscopy deferred for now due to poor prep Dilated Aortic arch aneurysm CXR reporting widening aneurysm to 7 CM CTA done showing Aneurysmal dilation of the thoracic aorta as above with short- segment dissection at the proximal portion of the aneurysms. Postprocedural changes as above. 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 Multifocal areas of consolidation within the lungs most characteristic of multifocal pneumonia. Discussed with [facility] vascular surgery 12/30 , did not feel its acute or need any urgent intervention Vascular input appreciated, follow as outpatient with his vascular surgery in [place] Monitor BP, tight control Hypotension resolved after IVF, midodrine, and transfusion Monitor BP Community-acquired pneumonia repeated CXR still showing IMER pneumonia No sepsis completed cefepime and azithromycin ESRD On HD M// Follows with [facility] consulted Monitor on telemetry CAD Continue statin Hold aspirin d/t acute blood loss anemia Hypothyroidism Continue levothyroxine Hx of gout Continue allopurinol Full Code DVT Prophylaxis: Pneumatic compression due to acute blood loss anemia reason for continued hospitalization:dispo planning Quality Stroke Does the patient have a stroke diagnosis?: No VTE Prior VTE?: No VTE Risk Level:: Medical - moderate - high VTE Device Contraindication: N/A - Device Ordered VTE Drug Contraindication: Treatment Not Indicated
--- NOTE | 2025-01-05 11:14 | MHC.CM.PN ---
Patient has been medically cleared for dc to home today, with services; [facility] has been chosen by Patient/family and they are aware of today's dc. IMM addressed with Son/Gian @ [phone] and left at bedside, per his request.
[2025-01-05] MEDS: Albuterol Sulfate (0.083%) 2.5 MG/3 ML VIAL.NEB INHALE ×2 (11:29→15:20)
[2025-01-05 11:32] VITALS: PULSE 75; RESP 18; O2SAT 89
[2025-01-05 15:21] VITALS: PULSE 70; RESP 16; O2SAT 92
[2025-01-05 16:00] VITALS: BP 151/69; PULSE 70; RESP 18; TEMP 37.1; O2SAT 93
== END 2025-01-05 17:38 | disposition home health service (06) | DRG 377 ==
LOC: HO.ED 14:53 → HO.EDOVER 19:11 → HO.IMC 12-27 15:41
PROVIDERS: Internal Medicine; Student in an Organized Health Care Education/Training Program; Admitting Provider Student in an Organized Health Care Education/Training Program; Emergency Provider Emergency Medicine; PCP Family Medicine; Visit Provider Internal Medicine
PROC: 0DJ08ZZ Inspection of Upper Intestinal Tract, Via Natural or Artificial Opening Endoscopic (ICD-10-PCS; CPT 43235; principal; 2024-12-28 14:40)
DX: K26.0 Acute duodenal ulcer with hemorrhage (principal); J18.9 Pneumonia, unspecified organism; N18.6 End stage renal disease; I12.0 Hypertensive chronic kidney disease with stage 5 chronic kidney disease or end stage renal disease; I69.354 Hemiplegia and hemiparesis following cerebral infarction affecting left non-dominant side; R04.2 Hemoptysis; T82.598A Other mechanical complication of other cardiac and vascular devices and implants, initial encounter; D3A.010 Benign carcinoid tumor of the duodenum; K26.4 Chronic or unspecified duodenal ulcer with hemorrhage; I95.9 Hypotension, unspecified; D63.1 Anemia in chronic kidney disease; E03.9 Hypothyroidism, unspecified; K22.4 Dyskinesia of esophagus; Z99.2 Dependence on renal dialysis; I25.10 Atherosclerotic heart disease of native coronary artery without angina pectoris; I71.22 Aneurysm of the aortic arch, without rupture; K31.7 Polyp of stomach and duodenum; K29.70 Gastritis, unspecified, without bleeding; Y71.8 Miscellaneous cardiovascular devices associated with adverse incidents, not elsewhere classified; K44.9 Diaphragmatic hernia without obstruction or gangrene; Z95.1 Presence of aortocoronary bypass graft; M10.9 Gout, unspecified; Z20.822 Contact with and (suspected) exposure to COVID-19; Z79.890 Hormone replacement therapy; Z79.899 Other long term (current) drug therapy
CPT/HCPCS: 0241U; 36415; 71045; 71275; 74240; 80048; 80076; 82272; 82947; 83605; 83690; 83735; 83880; 84484; 85025; 85027; 86140; 86850; 86900; 86901; 86923; 87040; 88305; 88341; 88342; 88344; 88360; 90999; 93005; 94640; 97161; 99285; J0456; J0692; J1920; J2003; J2405; J2470; J2704; J3010; P9016; Q9967

== ENCOUNTER → 2024-12-26 13:53 | Outpatient (BNV) | payer OTHER, SELFPAY | PROVIDERS: Admitting Provider Student in an Organized Health Care Education/Training Program; Emergency Provider Emergency Medicine; PCP Family Medicine; Visit Provider Internal Medicine Cardiovascular Disease | DX: R53.1 Weakness (principal); I44.0 Atrioventricular block, first degree | CPT/HCPCS: 93010 ==

== ENCOUNTER → 2024-12-26 13:53 | Outpatient (BNV) | payer OTHER, SELFPAY | PROVIDERS: Emergency Provider Emergency Medicine; PCP Family Medicine; Visit Provider Radiology Diagnostic Radiology | DX: J90 Pleural effusion, not elsewhere classified (principal); R11.10 Vomiting, unspecified | CPT/HCPCS: 71045 ==

== ENCOUNTER 2024-12-26 18:25 | Outpatient (BNV) | payer OTHER, SELFPAY | END 2025-01-02 10:30 | PROVIDERS: Admitting Provider Student in an Organized Health Care Education/Training Program; Emergency Provider Emergency Medicine; PCP Family Medicine; Visit Provider Radiology Diagnostic Radiology | DX: D64.9 Anemia, unspecified (principal) | CPT/HCPCS: 74246 ==

== ENCOUNTER 2024-12-26 18:25 | Outpatient (BNV) | payer OTHER, SELFPAY | END 2024-12-30 09:35 | PROVIDERS: Admitting Provider Student in an Organized Health Care Education/Training Program; Emergency Provider Emergency Medicine; PCP Family Medicine; Visit Provider Radiology Diagnostic Radiology | DX: R05.9 Cough, unspecified (principal); I71.20 Thoracic aortic aneurysm, without rupture, unspecified | CPT/HCPCS: 71045; 71275 ==

== ENCOUNTER → 2024-12-26 18:25 | Outpatient (BNV) | payer OTHER, SELFPAY | PROVIDERS: Admitting Provider Student in an Organized Health Care Education/Training Program; Emergency Provider Emergency Medicine; PCP Family Medicine; Visit Provider Internal Medicine | DX: D64.9 Anemia, unspecified (principal); K92.2 Gastrointestinal hemorrhage, unspecified; N18.6 End stage renal disease; K92.0 Hematemesis; K20.90 Esophagitis, unspecified without bleeding; K29.80 Duodenitis without bleeding | CPT/HCPCS: 99222 ==

== ENCOUNTER → 2024-12-26 18:25 | Outpatient (BNV) | payer OTHER, SELFPAY | PROVIDERS: Admitting Provider Student in an Organized Health Care Education/Training Program; Emergency Provider Emergency Medicine; PCP Family Medicine; Visit Provider Physician Assistant Surgical | DX: I71.22 Aneurysm of the aortic arch, without rupture (principal) | CPT/HCPCS: 99222; 99232 ==

== ENCOUNTER → 2024-12-26 18:25 | Outpatient (BNV) | payer OTHER, SELFPAY | PROVIDERS: Admitting Provider Student in an Organized Health Care Education/Training Program; Emergency Provider Emergency Medicine; PCP Family Medicine; Visit Provider Surgery | DX: K31.89 Other diseases of stomach and duodenum (principal) | CPT/HCPCS: 99222; 99499 ==

== ENCOUNTER → 2024-12-26 18:25 | Outpatient (BNV) | payer OTHER, SELFPAY | PROVIDERS: Admitting Provider Student in an Organized Health Care Education/Training Program; Emergency Provider Emergency Medicine; PCP Family Medicine; Visit Provider Student in an Organized Health Care Education/Training Program | DX: K31.89 Other diseases of stomach and duodenum (principal); K20.90 Esophagitis, unspecified without bleeding; K92.0 Hematemesis; D64.9 Anemia, unspecified; K92.2 Gastrointestinal hemorrhage, unspecified; N18.6 End stage renal disease; D62 Acute posthemorrhagic anemia | CPT/HCPCS: 99223; 99232 ==

== ENCOUNTER 2025-01-08 10:53 | Outpatient (REF) | payer OTHER, SELFPAY ==
--- NOTE | ~2025-01-08 | XR_ITS ---
EXAMINATION: XR CHEST 2 VIEWS HISTORY: abnormal lung sounds, recent pneumonia COMPARISON: Comparison is made with the prior examination dated 12/30/2024. FINDINGS: PA and lateral views of the chest are submitted. Again seen is marked dilatation of the aortic arch. The previously seen opacity in the left upper lung zone has largely resolved. There is subsegmental atelectasis at the bases. There is no pleural effusion, pneumothorax, or pulmonary vascular congestion. The heart is enlarged. The patient is status post median sternotomy and aortic valve replacement. Vascular stents are seen in the superior mediastinum. There is degenerative disc disease of the spine. XR/XR chest 2V IMPRESSION: Marked dilatation of the aortic arch. The previously seen opacity in the left upper lung zone has largely resolved. Electronically signed by: Theodore Hassan MD 01/08/2025 11:20 AM EDT
--- OUTSIDE RECORDS SUMMARY | 2025-01-08 13:05 | XMS_ITS ---
Author Name [facility] Organization Unknown Encounters Encounter Type Encounter Reason Primary Diagnosis Location Date Ambulatory [facility] 12/30/2024 Care Team Organization Name Specialty Phone Email Start Date End Da [facility] 12/30/2024
--- OUTSIDE RECORDS SUMMARY | 2025-01-08 13:05 | XMS_ITS | Clinical Summary ---
Author Organization [employer] Address [address] [facility] [address] [place] [address] Care Team Providers Care Cereal Chemist Name Role Phone Adriane Costa MD Primary Care Provider [phone] Allergies Active Allergy Reactions Criticality Noted Date Comments Alejandro Inhibitors 04/17/2019 Other reaction(s): Recurrent hyperkalemia / contraindication Nsaids 04/17/2019 Other reaction(s): contraindication Medications Restasis MultiDose 0.05 % ophthalmic emulsion Administer 1 drop into both eyes 2 times daily. 022 Active midodrine (Proamatine) 5 MG tablet TAKE 1 TABLET BY MOUTH THREE TIMES A WEEK MID TREATMENT DIRECTED 022 Active acetaminophen (Tylenol) 500 MG tablet Take by mouth. 1 tablet by mouth daily as needed for pain Active lactulose (Chronulac) 10 GM/15ML solution Take 15 mL by mouth once every 2-3 days as needed for constipation. 473 mL 1 023 Active Additional Information Patient not taking.Reported on 12/12/2024 Neomycin-Polymy juan-HC 1 % solution INSTILL 5 DROPS INTO THE LEFT EAR DAILY 024 Active cholecalciferol (Vitamin D High Potency) 25 MCG (1000 UT) capsuleIndicati ons:Vitamin D deficiency TAKE 1 CAPSULE BY MOUTH EVERY MORNING 90 capsule 3 024 Active atorvastatin (Lipitor) 80 MG tabletIndicatio ns:Coronary artery disease involving [place] coronary artery of [place] heart without angina pectoris TAKE 1 TABLET BY MOUTH AT BEDTIME 90 tablet 3 024 Active cyanocobalamin (Vitamin B-12) 1000 MCG tabletIndicatio ns:Vitamin B12 deficiency TAKE 1 TABLET BY MOUTH EVERY MORNING 90 tablet 3 024 Active aspirin (Aspirin Adult Low Strength) 81 MG EC tabletIndicatio ns:Coronary artery disease involving [place] coronary artery of [place] heart without angina pectoris TAKE 1 TABLET BY MOUTH EVERY MORNING 90 tablet 3 024 Active allopurinol (Zyloprim) 100 MG tablet TAKE 1 TABLET BY MOUTH EVERY MORNING 30 tablet 6 024 Active folic acid (Folvite) 1 MG tablet TAKE 1 TABLET BY MOUTH EVERY MORNING 30 tablet 5 025 Active guaiFENesin (Humibid 3) 400 MG tablet Take 1 tablet (400 mg) by mouth every 6 (six) hours if needed for cough. 45 tablet 1 025 Active ipratropium (Atrovent) 0.03 % nasal spray Use 1 spray to each nostril once daily 30 mL 3 025 Active Blood Pressure kitIndications: Essential hypertension 1 each 2 times daily. 1 kit 025 2025 Active Blood Glucose Monitoring Suppl (FreeStyle Lite) w/Device kitIndications: Type 2 diabetes mellitus with chronic kidney disease on chronic dialysis, without long-term current use of insulin ([facility]) 1 each 2 times daily. 1 kit 025 Active Lancets Ultra Thin 30G miscIndications :Type 2 diabetes mellitus with chronic kidney disease on chronic dialysis, without long-term current use of insulin ([facility]) Use BID as needed for BG check 100 each 2 Active FREESTYLE LITE test stripIndication s:Type 2 diabetes mellitus with chronic kidney disease on chronic dialysis, without long-term current use of insulin ([facility]/H[facility]) Use as instructed 100 each 12 025 Active levothyroxine (Synthroid, Levoxyl) 50 MCG tablet TAKE 1 TABLET BY MOUTH EVERY MORNING 90 tablet 3 025 Active sucralfate (Carafate) 1 g tablet Take 1 g by mouth before breakfast, before lunch, before evening meal, and at bedtime. 025 Active omeprazole (PriLOSEC) [address] capsule Take 1 capsule by mouth 2 times daily. 025 Active doxycycline (Vibramycin) 100 MG capsule Take 1 capsule (100 mg) by mouth 2 times daily for 10 days. Take with at least 8 ounces (large glass) of water, do not lie down for 30 minutes after 20 capsule 025 2024 Active predniSONE (Deltasone) 20 MG tablet Take 1 tablet (20 mg) by mouth Once per day for 5 days. 5 tablet 025 2024 Active ipratropium-alb uterol (Duo-Neb) 0.5-2.5 mg/3 mL nebulizer solutionIndicat ions:Wheezing Take 3 mL by nebulization every 6 (six) hours. 180 mL 11 025 2025 Active ondansetron (Zofran) 4 MG tabletIndicatio ns:Nausea TAKE ONE TABLET BY MOUTH EVERY 8 HOURS NEEDED NAUSEA (VIAL) 84 tablet 023 2024 Discontinued(M ed list cleanup (will not trigger notification to Pharmacy)) levothyroxine (Synthroid, Levoxyl) 50 MCG tablet TAKE 1 TABLET BY MOUTH ONCE A DAY^1R1 90 tablet 3 024 2024 Discontinued traMADol (Ultram) 50 MG tabletIndicatio ns:Low back pain radiating to left lower extremity,Left hip pain Take 1 tablet (50 mg) by mouth if needed at bedtime for severe pain. 28 tablet 024 2024 Discontinued(M ed list cleanup (will not trigger notification to Pharmacy)) terbinafine (LamISIL AT) 1 % creamIndication s:Tinea pedis of both feet Wash feet, dry, very well especially between toes. Apply cream between toes once or twice daily everyday until it resolves. 42 g 1 024 2024 Discontinued(M ed list cleanup (will not trigger notification to Pharmacy)) pantoprazole (Protonix) 40 MG EC tablet Take 1 tablet (40 mg) by mouth before breakfast. Do not crush, chew, or split. 90 tablet 3 024 2024 Discontinued(M ed list cleanup (will not trigger notification to Pharmacy)) sucralfate (Carafate) 1 g tablet Take 1 g by mouth before breakfast, before lunch, before evening meal, and at bedtime. 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 Assessment & Plan (09/18/2024 3:31 PM EST): [...] LUE. - pt was given appt with street inspector 09/27/24 - ER precautions discussed. Low back [...] monitor - patient advised to follow-up with street inspector Gait instability 12/13/2023 Assessment & Plan (12/13/2023 [...] 3:23 PM EST): - Following with [facility] - Distal esophageal stricture and stasis and tertiary contractions shown on Barium swallow study. S/p EGD with dilation 17 mm on 06/28/23. Sims's esophagus, hiatal hernia and gastric antral vascular ectasia (GAVE). - Continue PPI. Hiatal hernia 12/01/2023 Assessment & Plan (12/13/2023 3:17 PM EST): - following with [facility], last seen on 08/29/23 - s/p [...] 5:16 PM BY ANDREW LEDESMA Referred to Drug Safety Data Management Specialist CG was given the number to call to schedule appointment Assessment & Plan (11/13/2024 6:28 AM EST): >>ASSESSMENT AND PLAN FOR SENSORINEURAL HEARING LOSS, BILATERAL WRITTEN ON 06/07/2023 4:10 PM BY ANDREW LEDESMA Referred to Drug Safety Data Management Specialist CG was given the number to call to schedule appointment >>ASSESSMENT AND PLAN FOR HL (HEARING LOSS) WRITTEN ON 06/07/2023 4:56 PM BY ANDREW LEDESMA Patient has new hearing aids Assessment & Plan (10/29/2022 7:04 AM EST): - previously seen by service and repair supervisor and ENT - b/l sensorineural hearing loss - refer to service and repair supervisor so that he can get hearing aids History of prostate cancer 10/28/2022 Assessment & Plan (07/06/2024 6:40 AM EDT): -s/p radical prostatectomy in 1999 -last seen by urologist in 2019 -prescribed [place] 1000 mcg urethral suppository -pt has not been using frequently -last PSA < 0.04 on 02/03/22 Assessment & Plan (10/30/2022 6:04 AM EST): -s/p radical prostatectomy in 1999 -last seen by urologist in 2019 -prescribed [place] 1000 mcg urethral suppository -pt has not been using frequently -last PSA < 0.04 on 02/03/22 Dependence on renal dialysis 02/05/2021 Assessment & Plan (12/02/2023 10:22 AM EST): -Continue to follow with Nephrology. -Continue current Nephrology indications of dialysis. -Have RESTAURANT ASSOCIATE make contact for advisement on Ensure contraindication. Assessment & Plan (02/01/2023 5:13 PM EDT): -Dialysis days MWF -Continue current Tx plan per hospice liaison Assessment & Plan (10/30/2022 5:56 AM EST): -Dialysis days MWF -Continue current Tx plan per hospice liaison End stage renal disease 02/05/2021 Assessment & Plan (01/08/2025 11:09 AM EDT): - Continue hemodialysis(MWF) - Continue to follow with Nephrology Assessment & Plan (11/20/2024 11:14 AM EST): [...] & Plan (11/13/2024 6:38 PM EST): - [facility] - Optimize risk factor management and secondary prevention - Rescheduled an appointment due to chest pain Assessment & Plan (09/19/2024 4:09 PM EST): - Document Management Specialist [facility] - Optimize risk factor management and secondary prevention - Rescheduled an appointment due to chest pain Assessment & Plan (07/06/2024 6:26 AM EDT): - Document Management Specialist [facility] - Optimize risk factor management and secondary prevention Assessment & Plan (12/02/2023 10:30 AM EST): - Document Management Specialist: SHAWN, last seen XXX - Continue current medication as prescribed. - Last echocardiogram: Assessment & Plan (06/07/2023 4:09 PM EDT): - Document Management Specialist: SHAWN, last seen 07/24/22 - Current medications: [...] & Plan (02/01/2023 5:15 PM EDT): - Document Management Specialist: SHAWN, last seen 07/24/22 - Current medications: [...] & Plan (10/30/2022 5:46 AM EST): - Document Management Specialist: SHAWN, last seen 07/24/22 - Current medications: [...] surgery 2014 Coronary artery disease invo lving [place] coronary artery of [place] heart without angina pectoris 08/18/2015 Essential hypertension 08/18/2015 Assessment & Plan (11/13/2024 6:38 PM EST): - Goal BP < 130/80 per ACC/AHA guideline. - Slightly elevated in clinic 09/18/24 - Continue working on life style modifications. - Previously on metoprolol succinate 100 mg which was discontinued by hospice liaison - Previously on ACEI, but discontinued lisinopril [...] succinate 100 mg which was discontinued by hospice liaison - Previously on ACEI, but discontinued lisinopril [...] 100 mg was discontinued; will confirm with hospice liaison and pharmacist. 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 [...] s/p repair in February 2014 -Followed by [facility] vascular service, last seen by Dr. [...] s/p repair in February 2014 -Followed by [facility] vascular service, last seen by Dr. [...] s/p repair in February 2014 -Followed by [facility] vascular service, last seen by Dr. [...] s/p repair in February 2014 -Followed by [facility] vascular service, last seen by Dr. [...] s/p repair in February 2014 -Followed by [facility] vascular service, last seen by Dr. [...] mellitus, type 2 02/05/2014 Assessment & Plan (01/08/2025 11:10 AM EDT): - HgbA1C is 5.7% on 06/26/24, Goal < 8% due to his age - No longer on medication. Trying to control with diet currently. Previously on metformin and glipizide. - Consider GLP-1 agonist or SGLT-2 inhibitor if A1C > 8% - Last eye exam: [facility] - Last comprehensive foot exam: 06/07/23, high-risk - Last microalbumin test: not indicated since pt has end stage renal dx. worsening proteinuria / nephropathy - Last lipid profile: 09/18/24 - ASA - prescribed - IZ - up to date Assessment & Plan (11/13/2024 6:39 PM EST): - HgbA1C is 5.7% on 06/26/24, Goal < 8% due to his age - No longer on medication. Trying to control with diet currently. Previously on metformin and glipizide. - Consider GLP-1 agonist or SGLT-2 inhibitor if A1C > 8% - Last eye exam: [facility] - Last comprehensive foot [...] DIALYSIS, WITHOUT LONG-TERM CURRENT USE OF INSULIN ([facility]) WRITTEN ON 06/07/2023 4:10 PM BY [...] DIALYSIS, WITHOUT LONG-TERM CURRENT USE OF INSULIN ([facility]) WRITTEN ON 09/23/2023 7:36 PM BY ADRIANE [...] DIALYSIS, WITHOUT LONG-TERM CURRENT USE OF INSULIN ([facility]) WRITTEN ON 06/26/2024 10:54 AM BY [...] A1C > 8% - Last eye exam: [facility] - Last comprehensive foot [...] AND PLAN FOR DIABETES MELLITUS, TYPE 2 ([facility]) WRITTEN ON 02/01/2023 5:12 PM BY [...] DIALYSIS, WITHOUT LONG-TERM CURRENT USE OF INSULIN ([facility]) WRITTEN ON 2023 11:35 AM BY [...] of thoracic aorta 07/12/2013 Assessment & Plan (01/08/2025 11:09 AM EDT): -Pt had aneurysm of ascending aorta, aortic arch, 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 [...] s/p repair in February 2014 -Followed by [facility] vascular service, last seen by Dr. [...] s/p repair in February 2014 -Followed by [facility] vascular service, last seen by Dr. [...] s/p repair in February 2014 -Followed by [facility] vascular service, last seen by Dr. [...] s/p repair in February 2014 -Followed by [facility] vascular service, last seen by Dr. [...] s/p repair in February 2014 -Followed by [facility] vascular service, last seen by Dr. [...] s/p repair in February 2014 -Followed by [facility] vascular service, last seen by Dr. [...] Encounters Date Type Department Care Team Description 01/08/2025 9:30 AM EDT Office Visit [facility] [address] [place] [phone] Adriane Costa MD Duodenal mass (Primary Dx); Aneurysm of descending aorta (CMS/HCC); Aneurysm of descending thoracic 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 (CMS/HCC); Coronary artery disease involving [place] coronary artery of [place] heart without angina pectoris; Gastrointestinal hemorrhage, unspecified gastrointestinal hemorrhage type; End stage renal disease (CMS/HCC); Sensorineural hearing loss, bilateral; Anemia, unspecified type; Type 2 diabetes mellitus with chronic kidney disease on chronic dialysis, without long-term current use of insulin (CMS/HCC); Abnormal lung sounds; Pneumonia of both lungs due to infectious organism, unspecified part of lung; Wheezing; Essential hypertension 01/08/2025 Telephone [facility] [address] [place] [phone] Adriane Costa MD 01/08/2025 Travel 12/28/[address] [facility] [address] [place] [address] Adriane Costa MD Pre-visit Planning (HDF scheduled. ) 12/26/2024 Orders Only GENERIC EXTERNAL DATA DEPARTMENT Provider, Generic External Data 12/18/[address] [facility] [address] [place] [address] Adriane Costa MD 12/13/2024 1:30 PM EST Office Visit [facility] [address] [place] [address] My Hawkins ANP Gastrointestinal hemorrhage with melena [...] unspecified headache type 12/13/2024 Travel 12/11/2024 Telephone [facility] [address] [place] [phone] Adriane Costa MD Appointment Request 12/11/[address] [phone] Adriane Costa MD may recall 12/04/2024 Orders Only [facility] External Provider, [facility] 11/30/[address] [address] Adriane Costa MD Durable Medical Equipment (Bo[employer]) 11/13/2024 1:15 PM EST Office Visit [address] [address] Adriane Costa MD 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 ([facility]) (Primary Dx); Essential hypertension; Ischemic heart disease; End stage renal disease (CMS/[facility]); Acquired hypothyroidism; Type 2 diabetes mellitus with chronic kidney disease on chronic dialysis, without long-term current use of insulin ([facility]); Encounter for immunization; Weight loss; Protein-calorie malnutrition, unspecified severity (CMS/HCC); Dyslipidemia; Allergic rhinitis, unspecified seasonality, unspecified trigger; Subacute cough 11/13/2024 Travel 11/09/[address] [phone] Aydee Hein [place] chart prep 10/19/[address] [phone] Adriane Costa MD from Last 3 Months Immunizations Name [...] Sign Reading Time Taken Comments Blood Pressure 156/75 01/08/2025 9:45 AM EDT Pulse 81 01/08/2025 9:45 AM EDT Temperature 36.5 ??C (97.7 ??F) 01/08/2025 9:45 AM ED T Respiratory Rate 20 01/08/2025 9:45 AM EDT Oxygen Saturation 97% 01/08/2025 9:45 AM EDT Inhaled Oxygen Concentration - - Weight 71.8 kg (158 lb 6.4 oz) 01/08/2025 9:45 A M EDT Height 175.3 cm (5' 9 ) 12/13/2024 1:52 PM EST Body Mass Index 23.39 12/13/2024 1:52 PM EST Plan of Treatment Upcoming Encounters Date Type Department Care Team (Late st Contact Info) Description 01/24/2025 2:30 PM EDT Office Visit [facility] [address] [place], [place] [phone] My Hawkins, ANP [address] [place] [address] Health Maintenance Due Date Last Done Comments [...] 09/06/2023, 09/06/2023, Additional history exists Tobacco Screening 01/08/2026 01/08/2025 Eye Exam 03/27/2026 03/27/2024 DTaP/Tdap/Td Vaccines (3 [...] Procedure Name Priority Date/Time Associated Diagnosis Comments XR CHEST 2 VIEWS Routine 01/08/2025 10:5 3 AM EDT Abnormal lung sounds Pneumonia of both lungs due to infectious organism, unspecified part of lung FL UPPER GI SERIES Routine 01/02/2025 10 :30 AM EDT CTA CHEST W AND WO CONTRAST Routine 12/30/2024 12:37 PM EDT XR CHEST 1 VIEW Routine 12/30/2024 10:24 AM EDT OBSX1 Routine 12/26/2024 6:58 PM EDT XR CHEST 1 VIEW Routine 12/26/2024 2:40 PM EDT POCT GLYCATED HEMOGLOBIN, TOTAL Routine 12/13/2024 2:02 PM EST Type 2 diabetes mellitus with chronic kidney disease on chronic dialysis, without long-term current use of insulin (CMS/HCC) POCT GLUCOSE Routine 12/13/2024 1:54 PM EST [...] without long-term current use of insulin (CMS/HCC) Dyslipidemia HM DIABETES EYE EXAM Routine 03/27/2024 from Last 3 Months or Most Recently Relevant to Health Maintenance Results * XR Chest 2 Views (01/08/2025 10:53 AM EDT) Anatomical Region Laterality Modality Chest Radiographic Loren ging 01/08/2025 10:5 3 AM EDT Narrative 01/08/2025 11:24 AM EDT ?[facility] ?[address] ?[place] [address] ?XRay Report ? Signed ? Patient: Petar Rafael,Silfredys ?MR# ?? : [id number] ? : 1940 ?Acct:[id number] ? Age/Sex: 84 / M ?ADM Date: 04/01/25 ? Loc: HO.HHCX ? Attending Dr: Adriane Costa MD ? Ordering Physician: Adriane Costa MD ?? Date of Service: 01/08/25 ?? Procedure(s): XR chest 2V ?? Accession Number(s): [id number] ? cc: Adriane Costa MD ? EXAMINATION: ??XR CHEST 2 VIEWS ? HISTORY: abnormal lung sounds, recent pneumonia ? COMPARISON: Comparison is made with the prior examination dated ?? 12/30/2024. ? FINDINGS: ??PA and lateral views of the chest are submitted. Again seen ?? is marked dilatation of the aortic arch. The previously seen opacity in ?? the left upper lung zone has largely resolved. There is subsegmental ?? atelectasis at the bases. ??There is no pleural effusion, pneumothorax, ?? or pulmonary vascular congestion. ??The heart is enlarged. The patient ?? is status post median sternotomy and aortic valve replacement. Vascular ?? stents are seen in the superior mediastinum. ??There is degenerative ?? disc disease of the spine. ? XR/XR chest 2V ?? IMPRESSION: ?? Marked dilatation of the aortic arch. The previously seen opacity in ?? the left upper lung zone has largely resolved. ? Electronically signed by: ??Theodore Hassan MD ??01/08/2025 11:20 AM EDT ? Dictated By: ?Theodore Hassan MD ? Signed By: ?<Electronically signed by Theodore Hassan MD in OV> ?01/08/25 1120 ? DD/ 1053 ? TD/TT: 01/08/25 1112 ? Sharepoint Administrator: ? Procedure Note Yamila, Brenda - 01/08/[address] [address] XRay Report Signed Patient: Gabbi ForrestR# : [id number] : 9Acct:[id number] Age/Sex: 84 / MADM Date: 01/08/25 Loc: HO.HHCX Attending Dr: Adriane Costa MD Ordering Physician: Adriane Costa MD Date of Service: 01/08/25 Procedure(s): XR chest 2V Accession Number(s): [id number] cc: Adriane Costa MD EXAMINATION: XR CHEST 2 VIEWS HISTORY: abnormal lung sounds, recent pneumonia COMPARISON: Comparison is made with the prior examination dated 12/30/2024. FINDINGS: PA and lateral views of the chest are submitted. Again seen is marked dilatation of the aortic arch. The previously seen opacity in the left upper lung zone has largely resolved. There is subsegmental atelectasis at the bases. There is no pleural effusion, pneumothorax, or pulmonary vascular congestion. The heart is enlarged. The patient is status post median sternotomy and aortic valve replacement. Vascular stents are seen in the superior mediastinum. There is degenerative disc disease of the spine. XR/XR chest 2V IMPRESSION: Marked dilatation of the aortic arch. The previously seen opacity in the left upper lung zone has largely resolved. Electronically signed by: Theodore Hassan MD 01/08/2025 11:20 AM EDT RP Dictated By: Theodore Hassan MD Signed By: <Electronically signed by Theodore Hassan MD in OV> 01/08/25 1120 DD/ 1053 TD/TT: 01/08/25 1112 Sharepoint Administrator: Adriane Costa MD IMG XR PROCEDURES Final Result * FL Upper GI Series (01/02/2025 10:30 AM EDT) Anatomical Region Laterality Modality Body Radiographic Loren ging 01/02/2025 10:3 0 AM EDT Narrative 01/02/2025 12:45 PM EDT ? [facility] ?[address] ?[place] [address] ? Fluoroscopy Report ? Signed ? Patient: Petar Rafael,Silfredys ?MR# ?? : [id number] ? : 1940 ?Acct:[id number] ? Age/Sex: 84 / M ?ADM Date: 12/26/24 ? Loc: HO.IMC ?467-1 ? Attending Dr: Saman Florez MD ? Ordering Physician: Yadira Thomas MD ?? Date of Service: 01/02/25 ?? Procedure(s): FL upper GI series ?? Accession Number(s): [id number] ? cc: Adriane Costa MD; Yadira Thomas MD ? EXAMINATION: ?? XR FLUOROSCOPY UPPER GI SERIES ? CLINICAL INFORMATION: ?? INDICATION given by the ordering clinician: Anemia. ?? INDICATION obtained by the performing radiologist: Upper GI bleed. ?? 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 ? COMPARISON: ?? Barium swallow 03/01/2023. ?? Correlation made with CT abdomen and pelvis 12/18/2024. ? TECHNIQUE: ?? Fluoroscopic air contrast upper GI examination was performed utilizing ?? standard techniques with thin and thick barium and effervescent ?? granules. Numerous spot images were obtained. Several fluoroscopic ?? image hold cine sequences were also obtained. ? FINDINGS: ?? Study is significantly limited, as the patient is unable to tolerate ?? any prone or supine positioning, and cannot stand for the examination. ?? This severely limits the sensitivity the study and essentially limits ?? the examination to evaluation of the esophagus and stomach. ? Human Services Program Specialist examination demonstrates cardiomegaly with aortic valve ?? replacement and sternal wires in place. ? UPPER GI SERIES: ?? Lateral cine images of the oropharynx and hypopharynx demonstrate ?? normal swallow mechanism with normal epiglottic inversion and soft ?? palate elevation. No laryngeal penetration, glottic or subglottic ?? aspiration identified. No nasopharyngeal reflux present. Hypopharyngeal ?? structures appear normal without evidence of mass or diverticulum. ?? There was mild cricopharyngeal achalasia. ? Dual and single contrast images of the esophagus demonstrate a patulous ?? caliber, and somewhat tortuous course. Extensively disordered ?? esophageal peristalsis was present. Feline contraction pattern noted. ?? Grossly no mucosal abnormality, stricture, or mass allowing for exam ?? limitations. ? Cannot evaluate for gastroesophageal reflux due to inherent study ?? limitations. None grossly seen during the exam. The GE junction appears ?? patulous. There is a small to moderate-sized type I hiatus hernia. ? Dual contrast and single contrast images of the stomach were very ?? limited due to inherent study limitations. Poor coating of the lesser ?? curvature and superior wall, as well as the majority of the fundus. ?? There appears to be gastric rugal fold thickening somewhat diffusely ?? suggesting gastritis. ? Single and air-contrast images of the duodenal bulb demonstrate a ?? rounded filling defect, in keeping with the known duodenal mass. The ?? more distal segments of the duodenum are not well evaluated due to exam ?? limitations. Contrast did pass into the second segment without evidence ?? of gastric outlet obstruction. ? FLUOROSCOPY TIME: ?? 1 minute, 55 seconds ? Number of Spot Images:3 ?? Number of cines obtained: 3 ? DOSE AREA PRODUCT: ?? 1715 uGy-m2 (microgray-meter squared) ? FL/FL upper GI series ?? IMPRESSION: ?? 1. Markedly limited examination. The patient was unable to stand, lie ?? prone or supine, nor position themselves appropriately for the ?? examination. ?? 2. Patulous esophagus with markedly disordered esophageal motility. ?? Granular type mucosal pattern in the distal one half of the esophagus ?? suggesting esophagitis. ?? 3. Feline esophageal contraction pattern noted in keeping with chronic ?? reflux. Patulous GE junction. Small to moderate-sized type I hiatus ?? hernia. ?? 4. Limited evaluation of the stomach and duodenum. There is a ?? suggestion of diffuse gastric rugal fold thickening, suggesting ?? gastritis. ?? 5. 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 No significant gastric outlet obstruction to contrast ?? outflow. ? Electronically signed by: ??Mehrdad Solorzano MD ??01/02/2025 12:42 PM EDT RP ? Dictated By: ?Mehrdad Solorzano MD ? Signed By: ?<Electronically signed by Mehrdad Solorzano MD in OV> ?01/02/25 1242 ? DD/ 1030 ? TD/TT: 01/02/25 1050 ? Sharepoint Administrator: ? Procedure Note Brenda Driscoll - 01/02/[address] [address] Fluoroscopy Report Signed Patient: Ramonita ForrestysMR# : [id number] : 9Acct:[id number] Age/Sex: 84 / MADM Date: 12/26/24 Loc: [facility] 467-[address]: Saman Florez MD Ordering Physician: Yadira Thomas MD Date of Service: 01/02/25 Procedure(s): FL upper GI series Accession Number(s): [id number] cc: Adriane Costa MD; Yadira Thomas MD EXAMINATION: XR FLUOROSCOPY UPPER GI SERIES CLINICAL INFORMATION: INDICATION given by the ordering clinician: Anemia. INDICATION obtained by the performing radiologist: Upper GI bleed. 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 COMPARISON: Barium swallow 03/01/2023. Correlation made with CT abdomen and pelvis 12/18/2024. TECHNIQUE: Fluoroscopic air contrast upper GI examination was performed utilizing standard techniques with thin and thick barium and effervescent granules. Numerous spot images were obtained. Several fluoroscopic image hold cine sequences were also obtained. FINDINGS: Study is significantly limited, as the patient is unable to tolerate any prone or supine positioning, and cannot stand for the examination. This severely limits the sensitivity the study and essentially limits the examination to evaluation of the esophagus and stomach. Human Services Program Specialist examination demonstrates cardiomegaly with aortic valve replacement and sternal wires in place. UPPER GI SERIES: Lateral cine images of the oropharynx and hypopharynx demonstrate normal swallow mechanism with normal epiglottic inversion and soft palate elevation. No laryngeal penetration, glottic or subglottic aspiration identified. No nasopharyngeal reflux present. Hypopharyngeal structures appear normal without evidence of mass or diverticulum. There was mild cricopharyngeal achalasia. Dual and single contrast images of the esophagus demonstrate a patulous caliber, and somewhat tortuous course. Extensively disordered esophageal peristalsis was present. Feline contraction pattern noted. Grossly no mucosal abnormality, stricture, or mass allowing for exam limitations. Cannot evaluate for gastroesophageal reflux due to inherent study limitations. None grossly seen during the exam. The GE junction appears patulous. There is a small to moderate-sized type I hiatus hernia. Dual contrast and single contrast images of the stomach were very limited due to inherent study limitations. Poor coating of the lesser curvature and superior wall, as well as the majority of the fundus. There appears to be gastric rugal fold thickening somewhat diffusely suggesting gastritis. Single and air-contrast images of the duodenal bulb demonstrate a rounded filling defect, in keeping with the known duodenal mass. The more distal segments of the duodenum are not well evaluated due to exam limitations. Contrast did pass into the second segment without evidence of gastric outlet obstruction. FLUOROSCOPY TIME: 1 minute, 55 seconds Number of Spot Images:3 Number of cines obtained: 3 DOSE AREA PRODUCT: 1715 uGy-m2 (microgray-meter squared) FL/FL upper GI series IMPRESSION: 1. Markedly limited examination. The patient was unable to stand, lie prone or supine, nor position themselves appropriately for the examination. 2. Patulous esophagus with markedly disordered esophageal motility. Granular type mucosal pattern in the distal one half of the esophagus suggesting esophagitis. 3. Feline esophageal contraction pattern noted in keeping with chronic reflux. Patulous GE junction. Small to moderate-sized type I hiatus hernia. 4. Limited evaluation of the stomach and duodenum. There is a suggestion of diffuse gastric rugal fold thickening, suggesting gastritis. 5. Filling defect in the duodenal bulb, in keeping with the known duodenal mass. No significant gastric outlet obstruction to contrast outflow. Electronically signed by: Mehrdad Solorzano MD 01/02/2025 12:42 PM EDT Dictated By: Mehrdad Solorzano MD Signed By: <Electronically signed by Mehrdad Solorzano MD in OV> 01/02/25 1242 DD/ 1030 TD/TT: 01/02/25 1050 Sharepoint Administrator: [facility] External Provider IMG FLU OROSCOPY PROCEDURES Final Result * CTA Chest w/ and w/o Contrast (12/30/2024 12:37 PM EDT) Anatomical Region Laterality Modality Body, Chest Computed Tomogra phy 12/30/2024 12:3 7 PM EDT Narrative 12/30/2024 12:40 PM EDT ? [facility] ?[address] ?[place] [address] ? CT Scan Report ? Signed with Addenda ? Patient: Petar Hall,Silfrnewton ?MR# ?? : [id number] ? : 1940 ?Acct:[id number] ? Age/Sex: 84 / M ?ADM Date: 03/19/25 ? Loc: [facility] ?462-1 ? Attending Dr: Estefany Sargent MD ? Ordering Physician: Estefany Sargent MD ?? Date of Service: 12/30/24 ?? Procedure(s): CT angio chest aorta ?? Accession Number(s): [id number] ? cc: Estefany Sargent MD; Adriane Costa MD ? Report Number: ?? [id number]: Total DLP = ??462.00 mGy-cm ?ADDENDUM ?? This document has been electronically signed by: Niels Tinoco MD on ?? 12/30/2024 12:37:19 ? ADDENDUM: ?? This report was discussed with MYA Cannon on Dec 30, 2024 ?? 12:46:00 EDT. ? This document has been electronically signed by: Roxy Moran on ?? 12/30/2024 12:46:21 ? Addendum Dictated By: ?Niels Tinoco MD ? Addendum Signed By: ? <Electronically signed by Niels Tinoco MD in OV> ? 12/30/24 1247 ?? Addendum Cosigned By: ? DD/ ? TD/TT: 12/30/24 ? 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 Exam: CT angiogram of the chest with intravenous contrast. MIP ?? reconstructions. ? Comparison: Chest x-ray from earlier today. ? Findings: ? Patient's chest x-ray from earlier today demonstrated increasing fullness ?? in the region of the aortic arch concerning for aneurysmal dilation. This ?? is aneurysmal dilatation of the thoracic aorta is confirmed on CT scan. ?? Aneurysmal dilatation begins just distal to the takeoff of the left common ?? carotid artery. Largest transverse measurement is 6.3 cm. Subtle ?? short-segment dissection is identified at the beginning of the aneurysms. ?? There is dense vascular calcification. Aneurysmal dilatation extends to ?? the far caudad field of view involving the abdominal aorta measuring up to ?? 4.4 cm in transverse measurement. ?? Aortic valve prostheses is in place. ?? Vascular stent is seen within the left subcutaneous subclavian left ?? brachiocephalic vein. This is stent appears to be occluded. ?? Patient has undergone prior coronary artery bypass grafting. ?? There is dense calcification of the patient's [place] coronary arteries. ?? Borderline arias chamber cardiac enlargement. ?? Small bilateral pleural effusions. ?? Dense consolidation within the left upper lobe and lingula with less ?? pronounced consolidation within the remainder of the lungs. ?? No pneumothorax. ?? Subcentimeter mediastinal and hilar lymph nodes. ?? No free fluid or free air within the upper abdomen. ?? Densely calcified gallstones within the upper abdomen with pericholecystic ?? induration. ?? No acute fracture. ? Impression: ? 1. 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 ?? 2. Postprocedural changes as above. There appears to be occlusion of the ?? stent within the left subclavian and left brachiocephalic vein. ?? 3. Multifocal areas of consolidation within the lungs most characteristic ?? of multifocal pneumonia. ?? 4. Cholelithiasis with potential findings of cholecystitis. Clinical ?? correlation advised. ? This document has been electronically signed by: Niels Tinoco MD on ?? 12/30/2024 12:37:19 ? Dictated By: ?Niels Tinoco MD ? Signed By: ?<Electronically signed by Niels Tinoco MD in OV> ? 12/30/24 1238 ? DD/ 1237 ? TD/TT: 12/30/24 1237 ? Sharepoint Administrator: ? Procedure Note Yamila, Brenda - 12/30/[address] [place] [address] [address] Scan Report Signed with Cate Patient: Ramonita ForrestysMR# : [id number] : 9Acct:[id number] Age/Sex: 84 / MADM Date: 12/26/24 Loc: [facility] 462-[address]: Estefany Sargent MD Ordering Physician: Estefany Sargent MD Date of Service: 12/30/24 Procedure(s): CT angio chest aorta Accession Number(s): [id number] cc: Estefany Sargent MD; Adriane Costa MD Report Number: [id number]: Total DLP = 462.00 mGy-cm ADDENDUM This document has been electronically signed by: Niels Tinoco MD on 12/30/2024 12:37:19 ADDENDUM: This report was discussed with MYA Cannon on Dec 30, 2024 12:46:00 EDT. 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 MIP reconstructions. Comparison: Chest x-ray from earlier today. Findings: Patient's chest x-ray from earlier today demonstrated increasing fullness in the region of the aortic arch concerning for aneurysmal dilation. This is aneurysmal dilatation of the thoracic aorta is confirmed on CT scan. Aneurysmal dilatation begins just distal to the takeoff of the left common carotid artery. Largest transverse measurement is 6.3 cm. Subtle short-segment dissection is identified at the beginning of the aneurysms. There is dense vascular calcification. Aneurysmal dilatation extends to the far caudad field of view involving the abdominal aorta measuring up to 4.4 cm in transverse measurement. Aortic valve prostheses is in place. Vascular stent is seen within the left subcutaneous subclavian left brachiocephalic vein. This is stent appears to be occluded. Patient has undergone prior coronary artery bypass grafting. There is dense calcification of the patient's [place] coronary arteries. Borderline arias chamber cardiac enlargement. Small bilateral pleural effusions. Dense consolidation within the left upper lobe and lingula with less pronounced consolidation within the remainder of the lungs. No pneumothorax. Subcentimeter mediastinal and hilar lymph nodes. No free fluid or free air within the upper abdomen. Densely calcified gallstones within the upper abdomen with pericholecystic induration. No acute fracture. Impression: 1. 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 2. Postprocedural changes as above. 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 3. Multifocal areas of consolidation within the lungs most characteristic of multifocal pneumonia. 4. Cholelithiasis with potential findings of cholecystitis. Clinical correlation advised. This document has been electronically signed by: Niels Tinoco MD on 12/30/2024 12:37:19 Dictated By: Niels Tinoco MD Signed By: <Electronically signed by Niels Tinoco MD in OV> 12/30/24 1238 DD/ 36 TD/TT: 12/30/241236 Sharepoint Administrator: us [facility] External Provider IMG CT PROCEDURES Edited Result - Final * XR Chest 1 View (12/30/2024 10:24 AM EDT) Only the most recent of3 resultswithin the time period is included. Anatomical Region Laterality Modality Chest Radiographic Loren ging 12/30/2024 10:2 4 AM EDT Narrative 12/30/2024 10:25 AM EDT ? [facility] ?[address] ?[place] [address] ?XRay Report ? Signed with Addenda ? Patient: Bi Forrest ?MR# ?? : [id number] ? : 1940 ?Acct:[id number] ? Age/Sex: 84 / M ?ADM Date: 12/26/24 ? Loc: [facility] ?462-1 ? Attending Dr: Estefany Sargent MD ? Ordering Physician: Estefany Sargent MD ?? Date of Service: 12/30/24 ?? Procedure(s): XR chest 1V ?? Accession Number(s): [id number] ? cc: Estefany Sargent MD; Adriane Costa MD ?ADDENDUM ?? This document has been electronically signed by: Niels Tinoco MD on ?? 12/30/2024 10:24:23 ? ADDENDUM: ?? Receipt of this report by the clinical staff was confirmed with Lynn ?? ANIA Parrish on Dec 30, 2024 10:47:00 EDT. ? This document has been electronically signed by: Anjana Ozuna on ?? 12/30/2024 10:47:31 ? Addendum Dictated By: ?Niels Tinoco MD ? Addendum Signed By: ? <Electronically signed by Niels Tinoco MD in OV> ? 12/30/24 1048 ?? Addendum Cosigned By: ? DD/ ? TD/TT: 12/30/24 ? CLINICAL HISTORY: cough ? 1 view chest x-ray ? Comparison: CR/SR - XR CHEST 1V - / 14:39 EDT ? Findings: ?? Sternotomy wires are evident. Increasing marked fullness of the aortic ?? arch measuring 7 cm in transverse measurement. This is a vascular stent ?? likely arising within the aortic arch towards the left subclavian region. ?? There is increasing hazy density in the left mid and upper lung. ?? Small left pleural effusion. ?? Mild central interstitial prominence in the right lung with right pleural ?? effusion. ?? Cardiac silhouette is moderately enlarged. ? IMPRESSION: ?? 1. Increasing fullness of the aortic arch concerning for aneurysmal ?? dilatation. CT angiogram of the chest suggested for further evaluation. ? 2. Worsening bilateral infiltrates and/or edema with small bilateral ?? pleural effusions. ? This document has been electronically signed by: Niels Tinoco MD on ?? 12/30/2024 10:24:23 ? Dictated By: ?Niels Tinoco MD ? Signed By: ?<Electronically signed by Niels Tinoco MD in OV> ? 12/30/24 1025 ? DD/ 1024 ? TD/TT: 12/30/24 1024 ? Sharepoint Administrator: ? Procedure Note Donotleilainterpreter, Image - 12/30/[address] [address] XRay Report Signed with Cate Patient: Jori Forerst# : [id number] : 9Acct:[id number] Age/Sex: 84 / MADM Date: 12/26/24 Loc: [facility] 462-[address]: Estefany Sargent MD Ordering Physician: Estefany Sargent MD Date of Service: 12/30/24 Procedure(s): XR chest 1V Accession Number(s): [id number] cc: Estefany Sargent MD; Adriane Costa MD ADDENDUM This document has been electronically signed by: Niels Tinoco MD on 12/30/2024 10:24:23 ADDENDUM: Receipt of this report by the clinical staff was confirmed with Lynn Parrish RN on Dec 30, 2024 10:47:00 EDT. This document has been electronically signed by: Anjana Ozuna on 12/30/2024 10:47:31 Addendum Dictated By: Niels Tinoco MD Addendum Signed By: <Electronically signed by MD Qiana in OV> 12/30/24 1048 Addendum Cosigned By: DD/ TD/TT: 12/30/24 CLINICAL HISTORY: cough 1 view chest x-ray Comparison: CR/SR - XR CHEST 1V - 3/19/25 14:39 EDT Findings: Sternotomy wires are evident. Increasing marked fullness of the aortic arch measuring 7 cm in transverse measurement. This is a vascular stent likely arising within the aortic arch towards the left subclavian region. There is increasing hazy density in the left mid and upper lung. Small left pleural effusion. Mild central interstitial prominence in the right lung with right pleural effusion. Cardiac silhouette is moderately enlarged. IMPRESSION: 1. Increasing fullness of the aortic arch concerning for aneurysmal dilatation. CT angiogram of the chest suggested for further evaluation. 2. Worsening bilateral infiltrates and/or edema with small bilateral pleural effusions. This document has been electronically signed by: Niels Tinoco MD on 12/30/2024 10:24:23 Dictated By: Niels Tinoco MD Signed By: <Electronically signed by Niels Tinoco MD in OV> 12/30/24 1025 DD/ 1024 TD/TT: 12/30/24 1024 Sharepoint Administrator: [facility] External Provider IMG XR PROCEDURES Edited Result - Final * OBSX1 (12/26/2024 6:58 PM EDT) OBS1 POSITIVE NEGATIVE [facility] 12/26/2024 6:58 PM EDT 12/26/2024 7:06 PM EDT Generic External Data Provider LAB BLOOD ORDERAB LES Final Result [facility] [address] [place] [phone] * POCT HGB A1C (12/13/2024 2:02 PM EST) Hemoglobin A1C 5.7 4.0 - 6.0 % QC Media Lot # [id number] Lot# Expiration Date ,926 Blood 12/13/2024 2:02 PM EST [facility] ANP POINT OF CARE TEST ENTER/EDIT OR DERABLES Final Result * POCT Glucose (12/13/2024 1:54 PM EST) [facility] Signature Glucose Blood, POC 162 60 - 200 [...] EST Narrative 12/04/2024 3:33 PM EST ? [facility] ?[address] ?[place] [address] ? CT Scan Report ? Signed ? Patient: Petar Rafael,Silfredys ?MR# ?? : [id number] ? : 1940 ?Acct:[id number] ? Age/Sex: 84 / M ?ADM Date: 12/04/24 ? Loc: HO.ED ? Attending Dr: ? Ordering Physician: Rhea Riley MD ?? Date of Service: 12/04/24 ?? Procedure(s): CT abdomen pelvis wo IV con ?? Accession Number(s): [id number] ? cc: Rhea Riley MD; Adriane Costa MD ? Report Number: ?? [id number]: Total DLP = ??478.00 mGy-cm ?? EXAMINATION: [...] DD/ 1501 ? TD/TT: 12/04/24 1516 ? Sharepoint Administrator: ? Procedure Note Donmilindter, Image - 12/04/[address] [place] [address] [address] Scan Report Signed Patient: Ramonita ForrestysMR# : [id number] : 9Acct:[id number] Age/Sex: 84 / MADM Date: 12/04/24 Loc: HO.ED Attending Dr: Ordering Physician: Rhea Riley MD Date of Service: 12/04/24 Procedure(s): CT abdomen pelvis wo IV con Accession Number(s): [id number] cc: Rhea Riley MD; Adriane Costa MD Report Number: [id number]: Total DLP = 478.00 mGy-cm EXAMINATION: CT [...] 12/04/24 1530 DD/ 1501 TD/TT: 12/04/24 1516 Sharepoint Administrator: [facility] External Provider IMG CT PROCEDURES Final Result * (ABNORMAL) Lipid Panel with Reflex to Direct LDL (09/18/2024 3:43 PM EST) Triglycerides 103 <150 mg/dL [facility] Comment:Desirable Triglyceri de: less than 150 mg/dLBorderline High Triglyceride 150-199 mg/dLHigh Triglyceride: 200-499 mg/dLVery High Triglyceride: greater than or equal to 5OO mg/dL Cholesterol 157 <200 mg/dL [facility] Comment:Desirable Cholestero l: less than 200 mg/dLBorderline High Cholesterol: 200-239 mg/dLHigh Cholesterol: greater than 239 mg/dL LDL Cholesterol Calculated 97 <100 mg/dL [facility] Comment:Desirable LDL: less than 100 mg/dLNear Optimal/Above Optimal LDL: 110- 129 mg/dLBorderline High LDL: 130-159 mg/dLHigh LDL: 160-189 mg/dLVery High LDL: greater than or equal to 190 mg/dL HDL Cholesterol 40(L) >40 mg/dL [facility] Comment:Desirable HDL: great er than 40 mg/dL Note: This HDL assay may give artificially low results in patients with liver disease. Blood 09/18/2024 3:43 PM EST 09/18/2024 4:00 PM EST Adriane Costa MD LAB BLOOD ORDERABLES Final Resul t [facility] [address] [place] [address] [phone] * Diabetes Eye Exam (03/27/2024) Eye Exam Normal Normal 03/27/2024 Anika Provider HEALTH MAINTENANCE Final Result from Last 3 Months or Most Recently Relevant to Health Maintenance Insurance [facility] Care Teams Cereal Chemist Relationship Specialty Start Date End Date Adriane Costa MD [address] [place] [phone] PCP - General Family Medicine 06/14/13
--- OUTSIDE RECORDS SUMMARY | 2025-01-08 13:05 | XMS_ITS | Encounter Summary ---
Author Organization [employer] [facility] Address [address] [facility] [address] [place] [address] Care Team Providers Care Figure Clerk Name Role Phone Adriane Higuera MD Primary Care Provider [phone] Reason for Referral * Consultation (Routine) - Closed Specialty Diagnoses / Procedures Referred By Contbrit t Referred To Contact Podiatry Diagnoses Type 2 diabetes mellitus with chronic kidney disease on chronic dialysis, without long-term current use of insulin (CMS/HCC) End stage renal disease (CMS/HCC) Venous insufficiency Adriane Higuera MD [address] [place] [address] Phone: tel: fax: Trevor Russell DPM [address] [address] Phone: tel: fax: Referral ID Status Reason Start Date Expiration Date V isits Requested Visits Authorized [id number] Closed Specialty Services Required 11/30/2023 11/29/2024 1 1 Encounter Details Date Type Department Care Team (Late st Contact Info) Description 11/30/2023 Orders Only [facility] MED[facility]INE [address] [place] [address] Adriane Higuera MD [address] [place], [place] Type 2 diabetes mellitus with chronic [...] Description 01/24/2025 2:30 PM EDT Office Visit [facility] MEDICINE [address] [place] [address] My Hawkins ANP [address] [place] [address] Scheduled Referrals Name Type Priority Associated Diagnoses Orde r Schedule Referral to Podiatry Outpatient Referral Routine Type 2 diabetes mellitus with chronic kidney disease on chronic dialysis, without long-term current use of insulin ([facility]) End stage renal disease ([facility]) Venous insufficiency Expected: 11/30/2023 (Approximate), Expires: 11/30/2024 documented as of this encounter Visit Diagnoses Diagnosis Type 2 diabetes mellitus with chronic kidney disease on chronic dialysis, without long-term current use of insulin ([facility])- Primary End stage renal disease ([facility]) End stage renal disease Venous insufficiency Unspecified venous (peripheral) insufficiency documented in this encounter Additional Health Concerns Assessment Noted Time PHQ-9 Depression Total Score: 0 02/02/20 23 3:52 PM EDT documented as of this encounter Care Teams Figure Clerk Relationship Specialty Start Date End Date Adriane Higuera MD [address] [place] [address] PCP - General Family Medicine 06/14/13 documented as of this encounter
--- OUTSIDE RECORDS SUMMARY | 2025-01-08 13:05 | XMS_ITS | Encounter Summary ---
Author Organization [facility] Address [address] [facility] [address] [place] [address] Care Team Providers Care Emotionally Impaired Teacher Name Role Phone Adriane Higuera MD Primary Care Provider [phone] Reason for Visit * Reason Comments Med Refill Encounter Details Date Type Department Care Team (Late st Contact Info) Description 02/21/2023 Refill [facility] [address] [place], [place] [phone] Alecia Flowers MD [address] [place], [place] [phone] Nausea Social History Tobacco Use Types Packs/Day [...] Description 01/24/2025 2:30 PM EDT Office Visit [facility] [address] [place], [place] [phone] My Hawkins ANP [address] [place] [address] documented as of this encounter Visit Diagnoses Diagnosis Nausea Nausea alone documented in this encounter Additional Health Concerns Assessment Noted Time PHQ-9 Depression Total Score: 0 02/02/20 23 3:52 PM EDT documented as of this encounter Care Teams Emotionally Impaired Teacher Relationship Specialty Start Date End Date Adriane Higuera MD [address] [place] [address] PCP - General Family Medicine 06/14/13 documented as of this encounter
--- OUTSIDE RECORDS SUMMARY | 2025-01-08 13:05 | XMS_ITS | Clinical Summary ---
Author Organization [facility] Address [address] [place] [address] Care Team Providers Care Post Acute Care Nurse Name Role Phone Unavailable Primary Care Provider Unavailabl e Encounters Date Type Department Care Team Description 12/30/2024 2:55 PM EDT Ancillary Procedure [facility] [address] [place] [address] Provider, File Room from Last 3 Months Social History Tobacco Use Types Packs/Day Years Used Date Smoking Tobacco: Never Assessed Sex and Gender Information Value Date Recorded Sex Assigned at Not on file Gender Identity Not on file Sexual Orientation Not on file Plan of Treatment Health Maintenance Due Date Last Done Comments DTaP/Tdap/Td Vaccines (1 - Tdap) 1959 Pneumococcal Vaccines 50+ (1 of 1 - PCV) 1989 Zoster (Shingles) Vaccine (1 of 2) 1989 RSV Vaccine 60 years and old er and Patients (1 - 1-dose 75+ series) 2014 COVID-19 Vaccine (2 - 2023-2 5 season) 2025 11/13/2024 Hepatitis B Vaccines Aged Out No long er eligible based on patient's age to complete this topic Procedures Procedure Name Priority Date/Time Associated Diagnosis Comments SYLVESTER ARCHIVE FOR REFERENCE ONLY CT Routine 12/30/2024 2:55 PM EDT from Last 3 Months Results * SYLVESTER Archive for reference only CT (12/30/2024 2:55 PM EDT) Narrative BRISEYDA - 12/30/2024 2:50 PM EDT This order has been auto-finalized and does not contain a result. File Room Provider IMG DIGITIZE FILMS BRISEYDA [phone] from Last 3 Months
--- OUTSIDE RECORDS SUMMARY | 2025-01-08 13:06 | XMS_ITS | Encounter Summary ---
Author Organization [employer] [facility] Address [address] [facility] [address] [place] [address] Care Team Providers Care Isotope Hydrologist Name Role Phone Adriane Higuera MD Primary Care Provider [phone] Encounter Details Date Type Department Care Team (Late st Contact Info) Description 09/24/2022 Orders Only [facility]S [address] [place], [place] [phone] Salome Baker LPN Social History Tobacco Use [...] Description 01/24/2025 2:30 PM EDT Office Visit [facility] MEDICINE [address] [place] [address] My Hawkins ANP [address] [place] [address] documented as of this encounter Visit Diagnoses Not on filedocumented in this encounter Care Teams Isotope Hydrologist Relationship Specialty Start Date End Date Adriane Higuera MD [address] [place] [address] PCP - General Family Medicine 06/14/13 documented as of this encounter
--- OUTSIDE RECORDS SUMMARY | 2025-01-08 13:06 | XMS_ITS | Encounter Summary ---
Author Organization [employer] Address [address] [place] [address] Care Team Providers Care Audio/Visual Manager Name Role Phone Adriane Higuera MD Primary Care Provider [phone] Encounter Details Date Type Department Care Team (Latest Contact Info) Description 01/08/2025 Travel Social History Tobacco Use Types Packs/Day [...] Description 01/24/2025 2:30 PM EDT Office Visit [facility] MEDICINE [address] [place] [address] My Hawkins ANP [address] [place] [address] documented as of this encounter Visit Diagnoses Not on filedocumented in this encounter Additional Health Concerns Assessment Noted Time PHQ-9 Depression Total Score: 0 11/13/19 25 1:31 PM EST documented as of this encounter Care Teams Audio/Visual Manager Relationship Specialty Start Date End Date Adriane Higuera MD [address] [place] [address] PCP - General Family Medicine 06/14/13 documented as of this encounter
--- OUTSIDE RECORDS SUMMARY | 2025-01-08 13:06 | XMS_ITS | Encounter Summary ---
Author Organization [employer] Address [address] [place] [address] Care Team Providers Care Diamond Blender Name Role Phone Adriane Higuera MD Primary Care Provider [phone] Encounter Details Date Type Department Care Team (Late st Contact Info) Description 01/08/2025 Telephone [facility] MEDICINE [address] [place], [place] [phone] Adriane Higuera MD [address] [place], [place] [phone] Social History Tobacco Use Types Packs/Day Years [...] encounter Miscellaneous Notes * Telephone Encounter - Zo Acharya RN - 01/08/2025 11:55 AM EDT Returned call to Jimena who was unavailable. Left message with hr receptionist at cardiology to call back [phone]. Received call from [facility] pharmacyJana who stated that PCP sent Rx for nebulizer solution today but pt reporting not having nebulizer equipment at home. Pt requesting to update pt's son once scriptsent to DME supplier. Order filled out, placed on PCP desk for signature. * Telephone Encounter - Bradly Macdonald - 01/08/2025 11:32 AM EDT Tc from Jimena with [facility] requesting for the CT Order to be faxed over to the Nurses. Contact Jimena at [phone] documented in this encounter Plan of Treatment Upcoming Encounters Date Type Department Care Team (Late st Contact Info) Description 01/24/2025 2:30 PM EDT Office Visit [facility] MEDICINE [address] [place], [place] [phone] My Hawkins ANP [address] [place] [address] documented as of this encounter Visit Diagnoses Not on filedocumented in this encounter Additional Health Concerns Assessment Noted Time PHQ-9 Depression Total Score: 0 02/04/20 25 1:31 PM EST documented as of this encounter Care Teams Diamond Blender Relationship Specialty Start Date End Date Adriane Higuera MD [address] [place] [address] PCP - General Family Medicine 06/14/13 documented as of this encounter
--- OUTSIDE RECORDS SUMMARY | 2025-01-08 13:06 | XMS_ITS | Encounter Summary ---
Author Organization [employer] Address [address] 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; Gastrointestinal hemorrhage, unspecified gastrointestinal hemorrhage type; End stage renal disease (CMS/HCC); Sensorineural hearing loss, bilateral; Anemia, unspecified type; Type 2 diabetes mellitus with chronic kidney disease on chronic dialysis, without long-term current use of insulin (CMS/HCC); Abnormal lung sounds; Pneumonia of both lungs due to infectious organism, unspecified part of lung; Wheezing; Essential hypertension Social History Tobacco Use Types Packs/Day Years [...] oz) 01/08/2025 9:45 A M EDT Height - - Body Mass Index 23.39 12/13/2024 1:52 PM EST documented in this encounter Miscellaneous Notes * Assessment & Plan Note - Salome Ardon MA - 01/08/2025 11:10 AM EDT Associated Problem(s): Diabetes mellitus, type 2 (CMS/HCC) - HgbA1C is 5.7% on 06/26/24, Goal < 8% due to his age - No longer on medication. Trying to control with diet currently. Previously on metformin and glipizide. - Consider GLP-1 agonist or SGLT-2 inhibitor if A1C > 8% - Last eye exam: [facility] - Last comprehensive foot exam: 06/07/23, high-risk - Last microalbumin test: not indicated since pt has end stage renal dx. worsening proteinuria / nephropathy - Last lipid profile: 09/18/24 - ASA - prescribed - IZ - up to date * Assessment & Plan Note - Salome Ardon MA - 01/08/2025 11:09 AM EDT Associated Problem(s): End stage renal disease (CMS/HCC) - Continue hemodialysis(MWF) - Continue to follow with Nephrology * Assessment & Plan Note - Salome Ardon MA - 01/08/2025 11:09 AM EDT Associated Problem(s): GI bleed - hospitalized in Aug 2024, positive guaiac stool and normocytic anemia - treated with IV pantoprazole - evaluated by GI specialist in the hospital, and no further work-up was recommended - discharged with PO pantoprazole - follow-up with GI as needed. 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 Frank in Nov 2023 -CTA on 11/09/22 showed aorta 6.0 cm maximal in proximal descending thoracic aorta -Dr. Frank recommenced to consider endovascular repair with stent, if diameter becomes 6 cm previously. Because he is asymptomatic and has multiple risk factors, they agreed to continue conservativemanagement with a follow-up CTA in 1 year -CTA of chest / abdomen / pelvis on 11/17/23 1. Status post repair of the ascending aorta with aortic valve replacement, tubular graft of the ascending aorta and reimplantation of the great arch vessels. No significant interval change in the surgical repair. 2. Residual aneurysm involving the aortic arch and descending thoracic aorta remains e ssentially unchanged with only minimal change in the proximal descending thoracic aorta as documented above. 3. Unchanged atherosclerotic disease involving the abdominal aorta. 4. No acute abnormality identified in the chest, abdomen and pelvis. -Continue risk factor management documented in this encounter Plan of Treatment Upcoming Encounters Date Type Department Care Team (Late st Contact Info) Description 01/24/2025 2:30 PM EDT Office Visit [facility] [address] [place], [place] [phone] My Hawkins ANP [address] [place] [address] documented as of this encounter Procedures Procedure Name Priority Date/Time Associated Diagnosis Comments XR CHEST 2 VIEWS Routine 01/08/2025 10:5 3 AM EDT Abnormal lung sounds Pneumonia of both lungs due to infectious organism, unspecified part of lung documented in this encounter Results * XR Chest 2 Views (01/08/2025 10:53 AM EDT) Anatomical Region Laterality Modality Chest Radiographic Loren ging 01/08/2025 10:5 3 AM EDT Narrative 01/08/2025 11:24 AM EDT ?[facility] ?[address] ?[place] [address] ?XRay Report ? Signed ? Patient: Bi Forrest ?MR# ?? : [id number] ? : 1940 ?Acct:[id number] ? Age/Sex: 84 / M ?ADM Date: 01/08/25 ? Loc: HO.HHCX ? Attending Dr: Adriane Higuera MD ? Ordering Physician: Adriane Higuera MD ?? Date of Service: 01/08/25 ?? Procedure(s): XR chest 2V ?? Accession Number(s): [id number] ? cc: Adriane Higuera MD ? EXAMINATION: ??XR CHEST 2 VIEWS [...] ??Theodore Hassan MD ??01/08/2025 11:20 AM EDT ?? RP ? Dictated By: ?Theodore Hassan MD ? Signed By: ?<Electronically signed by Theodore Hassan MD in OV> ?01/08/25 1120 ? DD/ 1053 ? TD/TT: 01/08/25 1112 ? Rn Occupational: ? Procedure Note Donotuseinterpreter, Image - 01/08/2025 [facility] [address] [place] [address] XRay Report Signed Patient: Gabbi ForrestR# : [id number] : 1940Acct:[id number] Age/Sex: 84 / MADM Date: 01/08/25 Loc: HO.HHCX Attending Dr: Adriane Higuera MD Ordering Physician: Adriane Higuera MD Date of Service: 01/08/25 Procedure(s): XR chest 2V Accession Number(s): [id number] cc: Adriane Higuera MD EXAMINATION: XR CHEST 2 VIEWS HISTORY: [...] Theodore Hassan MD 01/08/2025 11:20 AM EDT Dictated By: Theodore Hassan MD Signed By: <Electronically signed by Theodore Hassan MD in OV> 01/08/25 1120 DD/ 1053 TD/TT: 01/08/25 1112 Rn Occupational: Adriane Higuera MD IMG XR PROCEDURES Final Result documented in this encounter Visit Diagnoses Diagnosis Duodenal mass- Primary 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 pectoris Gastrointestinal hemorrhage, unspecified gastrointestinal hemorrhage type End stage renal disease (CMS/HCC) End stage renal disease Sensorineural hearing loss, bilateral Anemia, unspecified type Type 2 diabetes mellitus with chronic kidney disease on chronic dialysis, 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
--- OUTSIDE RECORDS SUMMARY | 2025-01-08 13:06 | XMS_ITS | Clinical Summary ---
Author Organization [facility] Facility Address [address] [address] Care Team Providers Care Hydrometallurgical Engineer Name Role Phone Adriane Higuera MD Primary Care Provider [phone] Allergies No known active allergies Medications acetaminophen (TYLENOL) 325 MG tablet Take 1 tablet by mouth 1 (one) time each day Active allopurinol (ZYLOPRIM) 100 MG tablet Take 1 tablet by mouth 1 (one) time each day Active alprostadil ([place]) 1000 MCG pellet Comments: Patient Notes: 1 suppository intra-urethral daily Active amLODIPine (NORVASC) 5 MG tablet Take 1 tablet by mouth 1 (one) time each day Active aspirin (ST EVEILN) 81 MG EC tablet Take 1 tablet [...] Encounters Date Type Department Care Team Description 12/26/2024 Treatment [facility] [address] [address] Eleuterio Rob MD End stage renal disease; Dependence on renal dialysis 12/24/2024 Treatment [facility] [address] [address] Eleuterio Rob MD End stage renal disease; Dependence on renal dialysis 12/12/2024 Treatment [facility] [address] [address] Eleuterio Rob MD End stage renal disease; Dependence on renal dialysis 11/21/2024 Treatment [facility] [address] [address] Eleuterio Rob MD 11/19/2024 Treatment [facility] [address] [address] Eleuterio Rob MD 11/12/2024 Treatment [facility] [address] [address] Eleuterio Rob MD 11/09/2024 Treatment [facility] [address] [address] Eleuterio Rob MD 11/07/2024 Orders Only [facility] [address] [address] Eleuterio Rob MD 10/31/2024 Treatment [facility] [address] [address] Eleuterio Rob MD 10/19/2024 Treatment [facility] [address] [address] Eleuterio Rob MD 10/12/2024 Treatment [facility] [address] [address] Eleuterio Rob MD from Last 3 Months [...] Exam 11/10/2020 Diabetes: Visual Foot Exam 11/10/2020 Diabetes: Hemoglobin A1C 03/15/2025 025, 10/17/2024, 06/26/2024, Additional history exists Pneumococcal Vaccine: 65+ Years Completed 05/11/2021, 07/29/2016, 02/23/2014, Additional history exists Influenza Vaccine Completed 11/13/2024, , 06/26/2018, Additional history exists Procedures Procedure Name Priority Date/Time Associated Diagnosis Comments HEMOGLOBIN AND HEMATOCRIT, BLOOD Routine 12/26/2024 3:00 AM EDT LI () Routine 12/24/2024 3:00 AM EDT PHOSPHATE ( PHOSPHORUS) Routine 12/24/2024 3:00 AM EDT FERRITIN Routine 12/12/2024 3:00 AM EST PROTEIN, [...] AND DIFFERENTIAL Routine 10/17/2024 3:00 AM EST from Last 3 Months Results * (ABNORMAL) Hemoglobin and hematocrit (12/26/2024 3:00 AM EDT) Only the most recent of6 resultswithin the time period is included. Hgb 6.5(L) 13.7 - 17.5 g/dL [facility] Hematocrit 20.8(L) 40.1 - 51.0 % [facility] Hemoglobin x 3 19.5(L) 41.1 - 52.5 g/dL [facility] 12/26/2024 3:00 AM EDT 12/27/2024 1:26 PM EDT Eleuterio Rob MD LAB BLOOD ORDERABLES Final Re sult Performing Organization Address City/[facility]/ZIP Co de Phone Number [facility] [address] [place] [address] * LIH (12/24/2024 3:00 AM EDT) Only the most recent of4 resultswithin the time period is included. Lipemia Normal Normal [facility] Icterus Normal Normal [facility] Hemolysis Normal Normal [facility] 12/24/2024 3:00 AM EDT 12/25/2024 12:23 PM EDT Eleuterio Rob MD LAB [id number] SOLICITED RESULTS Final Result Performing Organization Address City/[facility]/ZIP Co de Phone Number [facility] [address] [place] [address] * Phosphorus (12/24/2024 3:00 AM EDT) Phosphorus, Serum 3.7 2.5 - 5.0 mg/dL [facility] 12/24/2024 3:00 AM EDT 12/25/2024 12:23 PM EDT Eleuterio Rob MD LAB BLOOD ORDERABLES Final Re sult Performing Organization Address City/[facility]/ZIP Co de Phone Number [facility] [address] [place] [address] * (ABNORMAL) Kt/V Natural Log, URR (12/12/2024 [...] 2:41 PM EST Eleuterio Rob MD LAB [id number] SOLICITED RESULTS Final Result Performing Organization Address [facility] Co de Phone Number [facility] [address] [place] [address] * (ABNORMAL) Calcium Phosphorus Product, Adjusted (12/12/2024 [...] 2:41 PM EST Eleuterio Rob MD LAB [id number] SOLICITED RESULTS Final Result Performing Organization Address [facility] de Phone Number [facility] [address] [place] [address] * (ABNORMAL) TSAT (12/12/2024 3:00 AM EST) Only the most recent of3 resultswithin the time period is included. [facility] Iron 44(L) 65 - 175 ug/dL [facility] Transferrin 100(L) 215 - 365 mg/dL [facility] TIBC 140(L) 211 - 406 ug/dL [facility] Iron Saturation (TSat) 31 22 - 52 % [facility] 12/12/2024 3:00 AM EST 12/13/2024 2:41 PM EST Eleuterio Rob MD LAB BLOOD ORDERABLES Final Re sult Performing Organization Address [facility] de Phone Number [facility] [address] [place] [address] * (ABNORMAL) CBC and Differential (12/12/2024 3:00 AM EST) Only the most recent of3 resultswithin the time period is included. Pathologist [facility] DIFFERENTIAL MANUAL, 2 Not Indicated [facility] [...] ORDERABLES Final Re sult Performing Organization Address [facility] de Phone Number [facility] [address] [place] [address] * ALT (12/12/2024 3:00 AM EST) Only the most recent of3 resultswithin the time period is included. ALT (SGPT) 12 10 - 49 U/L [facility] 12/12/2024 3:00 AM EST 12/13/2024 2:41 PM EST Eleuterio Rob MD LAB BLOOD ORDERABLES Final Re sult Performing Organization Address [facility] de Phone Number [facility] [address] [place] [address] * AST (12/12/2024 3:00 AM EST) Only the most recent of3 resultswithin the time period is included. AST (SGOT) 21 <34 U/L [facility] 12/12/2024 3:00 AM EST 12/13/2024 2:41 PM EST Eleuterio Rob MD LAB BLOOD ORDERABLES Final Re sult Performing Organization Address [facility] de Phone Number [facility] [address] [place] [address] * (ABNORMAL) Protein, total (12/12/2024 3:00 AM EST) Only the most recent of3 resultswithin the time period is included. Total Protein 6.0(L) 6.4 - 8.9 g/dL [facility] 12/12/2024 3:00 AM EST 12/13/2024 2:41 PM EST Eleuterio Rob MD LAB BLOOD ORDERABLES Final Re sult Performing Organization Address [facility] Co de Phone Number [facility] [address] [place] [address] * Alkaline phosphatase (12/12/2024 3:00 AM EST) Only the most recent of3 resultswithin the time period is included. Alkaline Phosphatase 79 46 - 116 U/L [facility] 12/12/2024 3:00 AM EST 12/13/2024 2:41 PM EST Eleuterio Rob MD LAB BLOOD ORDERABLES Final Re sult Performing Organization Address [facility] Co de Phone Number [facility] [address] [place] [address] * (ABNORMAL) Magnesium (12/12/2024 3:00 AM EST) Only the most recent of3 resultswithin the time period is included. Magnesium 1.8(L) 1.9 - 2.7 mg/dL [facility] 12/12/2024 3:00 AM EST 12/13/2024 2:41 PM EST Eleuterio Rob MD LAB BLOOD ORDERABLES Final Re sult Performing Organization Address [facility] Co de Phone Number [facility] [address] [place] [address] * (ABNORMAL) Lactate dehydrogenase (12/12/2024 3:00 AM EST) Only the most recent of3 resultswithin the time period is included. LDH 370(H) 120 - 246 U/L [facility] 12/12/2024 3:00 AM EST 12/13/2024 2:41 PM EST Eleuterio Rob MD LAB BLOOD ORDERABLES Final Re sult Performing Organization Address [facility] Co de Phone Number [facility] [address] [place] [address] * (ABNORMAL) Glucose, random (12/12/2024 3:00 AM EST) Only the most recent of3 resultswithin the time period is included. Glucose 186(H) 74 - 109 mg/dL [facility] 12/12/2024 3:00 AM EST 12/13/2024 2:41 PM EST Eleuterio Rob MD LAB BLOOD ORDERABLES Final Re sult Performing Organization Address [facility] de Phone Number [facility] [address] [place] [address] * (ABNORMAL) Ferritin (12/12/2024 3:00 AM EST) Only the most recent of3 resultswithin the time period is included. Ferritin 2,275(H) 22 - 322 ng/mL [facility] 12/12/2024 3:00 AM EST 12/13/2024 2:41 PM EST Eleuterio Rob MD LAB BLOOD ORDERABLES Final Re sult Performing Organization Address [facility] de Phone Number [facility] [address] [place] [address] * (ABNORMAL) Creatinine, serum (12/12/2024 3:00 AM EST) Only the most recent of3 resultswithin the time period is included. Creatinine 6.75(H) 0.70 - 1.30 mg/dL [facility] 12/12/2024 3:00 AM EST 12/13/2024 2:41 PM EST Eleuterio Rob MD LAB BLOOD ORDERABLES Final Re sult Performing Organization Address [facility] de Phone Number [facility] [address] [place] [address] * (ABNORMAL) Bilirubin, total (12/12/2024 3:00 AM EST) Only the most recent of3 resultswithin the time period is included. Total Bilirubin 0.2(L) 0.3 - 1.2 mg/dL [facility] 12/12/2024 3:00 AM EST 12/13/2024 2:41 PM EST Eleuterio Rob MD LAB BLOOD ORDERABLES Final Re sult Performing Organization Address [facility] de Phone Number [facility] [address] [place] [address] * Electrolyte panel (12/12/2024 3:00 AM EST) [...] ORDERABLES Final Re sult Performing Organization Address [facility] de Phone Number [facility] [address] [place] [address] * PTH, Intact (11/14/2024 3:00 AM EST) [...] ORDERABLES Final Re sult Performing Organization Address [facility] de Phone Number [facility] [address] [place] [address] * Confirmation Test HCV (10/17/2024 3:00 AM EST) Hep C Ab Confirmation Not needed [facility] 10/17/2024 3:00 AM EST 10/18/2024 12:41 PM EST Eleuterio Rob MD LAB BLOOD ORDERABLES Final Re sult Performing Organization Address [facility] de Phone Number [facility] [address] [place] [address] * HEPATITIS C ABS W/REFLEX RNA DETECTR (10/17/2024 3:00 AM EST) Hep C Virus Ab Non-Reacti ve Non-Reacti ve [facility] 10/17/2024 3:00 AM EST 10/18/2024 1:16 PM EST Eleuterio Rob MD LAB [id number] SOLICITED RESULTS Final Result Performing Organization Address [facility] de Phone Number [facility] [address] [place] [address] * Aluminum level (10/17/2024 3:00 AM EST) Aluminum 4 1 - 20 ug/L [facility] 10/17/2024 3:00 AM EST 10/18/2024 12:56 PM EST Eleuterio Rob MD LAB BLOOD ORDERABLES Final Re sult Performing Organization Address [facility] de Phone Number [facility] [address] [place] [address] * Vitamin D 25 Hydroxy (10/17/2024 3:00 AM EST) Vitamin D, 25-Hydroxy 44 30 - 100 ng/mL [facility] Comment: Status ? Adult ?? Pediatric Deficient: ? <20 ? <15 Insufficient: ??20-29 ?? 15-19 Sufficient: ?30-100 ??20-100 10/17/2024 3:00 AM EST 10/18/2024 1:16 PM EST Eleuterio Rob MD LAB BLOOD ORDERABLES Final Re sult Performing Organization Address [facility] Co de Phone Number [facility] [address] [place] [address] * Hepatitis B Surface Antibody (10/17/2024 3:00 AM EST) Hep B Surface Antibody 13 mIU/mL [facility] Comment: Interpretation: <10: No Immunity >=10: Probable Immunity 10/17/2024 3:00 AM EST 10/18/2024 1:16 PM EST Eleuterio Rob MD LAB BLOOD ORDERABLES Final Re sult Performing Organization Address [facility] de Phone Number [facility] [address] [place] [address] * Uric Acid (10/17/2024 3:00 AM EST) Uric Acid 4.5 4.4 - 7.6 mg/dL [facility] 10/17/2024 3:00 AM EST 10/18/2024 1:16 PM EST Eleuterio Rob MD LAB BLOOD ORDERABLES Final Re sult Performing Organization Address [facility] de Phone Number [facility] [address] [place] [address] * Hemoglobin A1c (10/17/2024 3:00 AM EST) [...] Final Re sult [facility] [address] [place] [address] * (ABNORMAL) Lipid panel (10/17/2024 3:00 AM [...] Final Re sult [facility] [address] [place] [address] from Last 3 Months Insurance [facility] ([id number]) MYA PALACIOS [id number] [facility] ([id number]) MYA PALACIOS [id number] Care Teams Hydrometallurgical Engineer Relationship Specialty Start Date End Date Adriane Higuera MD [address] [place] [phone] PCP - General Family Medicine 07/17/24
--- OUTSIDE RECORDS SUMMARY | 2025-01-08 13:06 | XMS_ITS | Encounter Summary ---
Author Organization [facility] Address [address] [place] [address] Care Team Providers Care Gizzard Peeler Name Role Phone Adriane Higuera MD Primary Care Provider [phone] Encounter Details Date Type Department Care Team (Late st Contact Info) Description 10/20/2022 Orders Only [facility] [address] [place] [address] Abbey Person LPN Social History Tobacco Use [...] Description 01/24/2025 2:30 PM EDT Office Visit [facility] [address] [place] [address] My Hawkins ANP [address] [place] [address] documented as of this encounter Visit Diagnoses Not on filedocumented in this encounter Care Teams Gizzard Peeler Relationship Specialty Start Date End Date Adriane Higuera MD [address] [place] [address] PCP - General Family Medicine 06/14/13 documented as of this encounter
--- OUTSIDE RECORDS SUMMARY | 2025-01-08 13:06 | XMS_ITS | Encounter Summary ---
Author Organization [facility] Address [address] [place] [address] Care Team Providers Care Elevator Conductor Name Role Phone Adriane Higuera MD Primary Care Provider Reason for Visit * Reason Comments Med Refill Encounter Details Date Type Department Care Team (Late st Contact Info) Description 01/27/2023 Refill [facility] [address] [place] [address] Adriane Higuera MD [address] [place] [address] Nausea Social History Tobacco Use Types Packs/Day [...] Description 01/24/2025 2:30 PM EDT Office Visit [facility] [address] [place] [address] My Hawkins ANP [address] [place] [address] documented as of this encounter Visit Diagnoses Diagnosis Nausea Nausea alone documented in this encounter Care Teams Elevator Conductor Relationship Specialty Start Date End Date Adriane Higuera MD [address] [place] [address] PCP - General Family Medicine 06/14/13 documented as of this encounter
== END 2025-01-08 10:54 | disposition home or self-care (01) ==
LOC: HO.HHCX 10:53
PROVIDERS: Visit Provider Family Medicine
DX: R09.89 Other specified symptoms and signs involving the circulatory and respiratory systems (principal); J18.9 Pneumonia, unspecified organism
CPT/HCPCS: 71046

== ENCOUNTER → 2025-01-08 10:53 | Outpatient (BNV) | payer OTHER, SELFPAY | PROVIDERS: Visit Provider Radiology Diagnostic Radiology | DX: R09.89 Other specified symptoms and signs involving the circulatory and respiratory systems (principal); J18.9 Pneumonia, unspecified organism | CPT/HCPCS: 71046 ==

== ENCOUNTER 2025-01-11 09:32 | Outpatient (AMB) | payer OTHER, SELFPAY ==
--- NOTE | 2025-01-11 09:32 | A.OFFVIS_ITS ---
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 CC: son states that he was having nausea and vomiting but has since been feeling better and not having those symptoms. Does Dialysis so it is hard to schedule appts around the times. 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 Had EGD with lesion noted 2 cm, path with NET Upper GI without obstruction bit filling defect noted. EGD 11/2024: Erosive esophagitis and duodenitis. Endorses compliance to PPI and carafate. 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, non operative management may be better --vs ESD--would need referral to [facility], will see what Dr Alford thinks [facility] Medical History ESRD (end stage renal disease) Anemia CKD (chronic kidney disease) stage 5, GFR less than 15 ml/min MSSA bacteremia Dialysis patient COVID-19 vaccine administered Renal failure COPD (chronic obstructive pulmonary disease) Thyroid disease GERD (gastroesophageal reflux disease) Elevated cholesterol PVD (peripheral vascular disease) Prostate CA HTN (hypertension) Heart attack Surgical History (Updated 01/11/25 @ 09:35 by JENNIE Khan) Hx of endoscopy Hx of cataract surgery Hx of cystoscopy History of incision and drainage H/O colonoscopy Hx of aortic valve replacement Hx of CABG Social History Household Members: Children Household Members Other:: son Housing: Apartment Are you a primary career coordinator to a significant other at home: No Do you presently have visiting nurse or other home services: No Alcohol intake: never Comment: Surgeon informed that all counts were correct Patient Tobacco Use Status: Never used Tobacco e-Cigarette/Vaping Use: Never Used Second Hand Smoke Exposure: No Advance Directives Date on File: 12/05/24 service: No Current occupational status: disabled Telehealth Telehealth Telehealth Platform: Telephone Location of provider rendering services: practice address Location of patient: address on file Patient Identification confirmed using: Name, : Yes Telehealth method: voice only Patient verbally consented to treatment: Yes Patient verbally consented to billing insurance company: Yes Patient informed of any privacy concerns related to visit: Yes Minutes spent on Phone/Video with Pt.: 9 Assessment & Plan Assessment & Plan (1) Duodenal mass: Code(s): K31.89 - Other diseases of stomach and duodenum Category: Medical Plan: as above Coding Level of Care Code Tele Est Pt Level 3 (76869) Diagnoses 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
--- OUTSIDE RECORDS SUMMARY | 2025-01-11 10:25 | XMS_ITS | Clinical Summary ---
Author Organization [facility] Address [address] [place] [address] Care Team Providers Care Mineral Mixer Name Role Phone Unavailable Primary Care Provider Unavailabl e Encounters Date Type Department Care Team Description 12/30/2024 2:55 PM EDT Ancillary Procedure [facility]iology [address] [place] [address] Provider, File Room from Last 3 Months [...] File Room Provider IMG DIGITIZE FILMS BRISEYDA [phone] from Last 3 Months
--- OUTSIDE RECORDS SUMMARY | 2025-01-11 10:25 | XMS_ITS | Clinical Summary ---
Author Organization [employer] Address [address] [facility] [address] [place] [address] Care Team Providers Care Turbine Attendant Name Role Phone Adriane Costa MD Primary Care Provider [phone] Allergies Active Allergy Reactions Criticality Noted Date Comments Alejandro Inhibitors 04/17/2019 Other reaction(s): Recurrent hyperkalemia / contraindication Nsaids 04/17/2019 Other reaction(s): contraindication Medications Restasis MultiDose 0.05 % ophthalmic emulsion Administer 1 drop into both eyes 2 times daily. Active midodrine (Proamatine) 5 MG tablet TAKE 1 TABLET BY MOUTH THREE TIMES A WEEK MID TREATMENT DIRECTED Active acetaminophen (Tylenol) 500 MG tablet Take by mouth. 1 tablet by mouth daily as needed for pain Active Neomycin-Polymy juan-HC 1 % solution INSTILL 5 DROPS INTO THE LEFT EAR DAILY Active cholecalciferol (Vitamin D High Potency) 25 MCG (1000 UT) capsuleIndicati ons:Vitamin D deficiency TAKE 1 CAPSULE BY MOUTH EVERY MORNING 90 capsule 3 024 Active atorvastatin (Lipitor) 80 MG tabletIndicatio ns:Coronary artery disease involving [place] coronary artery of [place] heart without angina pectoris TAKE 1 TABLET BY MOUTH AT BEDTIME 90 tablet 3 024 Active cyanocobalamin (Vitamin B-12) 1000 MCG tabletIndicatio ns:Vitamin B12 deficiency TAKE 1 TABLET BY MOUTH EVERY MORNING 90 tablet 3 024 Active aspirin (Aspirin Adult Low Strength) 81 MG EC tabletIndicatio ns:Coronary artery disease involving [place] coronary artery of [place] heart without angina pectoris TAKE 1 TABLET BY MOUTH EVERY MORNING 90 tablet 3 Active allopurinol (Zyloprim) 100 MG tablet TAKE 1 TABLET BY MOUTH EVERY MORNING 30 tablet 6 024 Active folic acid (Folvite) 1 MG tablet TAKE 1 TABLET BY MOUTH EVERY MORNING 30 tablet 5 Active guaiFENesin (Humibid 3) 400 MG tablet Take 1 tablet (400 mg) by mouth every 6 (six) hours if needed for cough. 45 tablet 1 Active ipratropium (Atrovent) 0.03 % nasal spray Use 1 spray to each nostril once daily 30 mL 3 Active Blood Pressure kitIndications: Essential hypertension 1 each 2 times daily. 1 kit 025 2025 Active Blood Glucose Monitoring Suppl (FreeStyle Lite) w/Device kitIndications: Type 2 diabetes mellitus with chronic kidney disease on chronic dialysis, without long-term current use of insulin (CMS/HCC) 1 each 2 times daily. 1 kit Active Lancets Ultra Thin 30G miscIndications :Type 2 diabetes mellitus with chronic kidney disease on chronic dialysis, without long-term current use of insulin (CMS/HCC) Use BID as needed for BG check 100 each 2 Active FREESTYLE LITE test stripIndication s:Type 2 diabetes mellitus with chronic kidney disease on chronic dialysis, without long-term current use of insulin (CMS/HCC) Use as instructed 100 each 12 Active levothyroxine (Synthroid, Levoxyl) 50 MCG tablet TAKE 1 TABLET BY MOUTH EVERY MORNING 90 tablet 3 Active sucralfate (Carafate) 1 g tablet Take 1 g by mouth before breakfast, before lunch, before evening meal, and at bedtime. Active omeprazole (PriLOSEC) [address] capsule Take 1 capsule by mouth 2 times daily. Active doxycycline (Vibramycin) 100 MG capsule Take [...] hours. 180 mL 11 025 2025 Active lactulose (Chronulac) 10 GM/15ML solution Take 15 mL by mouth once every 2-3 days as needed for constipation. 473 mL 1 023 2024 Discontinued(M ed list cleanup (will not trigger notification to Pharmacy)) levothyroxine (Synthroid, Levoxyl) 50 MCG tablet TAKE 1 TABLET BY MOUTH ONCE A DAY^1R1 90 tablet 3 024 2024 Discontinued pantoprazole (Protonix) 40 MG EC tablet Take [...] Noted Date Diagnosed Date Duodenal mass 01/08/2025 Assessment & Plan (01/08/2025 6:48 PM EDT): - ulcerated - biopsy pathology report showed neuroendocrine cells, well-differentiated - refer to GI and Onc Anemia 01/08/2025 Assessment & Plan (01/08/2025 6:50 PM EDT): - acute on chronic anemia due to GIB - received 4 units PRBC in December 2024 - follow up with hematology and dialysis - no longer on aspirin History of cerebrovascular accident 01/08/2025 Subacute cough 01/08/2025 Assessment & Plan (01/08/2025 6:53 PM EDT): - multifactorial: pulm; GI; cardiovascular; allergy - recently treated for pneumonia, multi-lobar. - check CXR - refer to device engineer - Rx nebulizer - optimize treatment for duodenal mass and esophageal stricture - Rx doxycycline and prednisone Erosive esophagitis 12/13/2024 Protein calorie malnutrition 11/20/2024 [...] GI bleed 09/18/2024 Assessment & Plan (01/08/2025 6:44 PM EDT): - hospitalized in Aug 2024, Nov 2024, and December 2024 - during most recent hospitalization, EGD showed ulcerated duodenal mass. - aspirin was discontinued - patient received total 4 units of PRBC - pantoprazole was switched to omeprazole 40 mg bid and sucralfate 1g 4 times per day - refer to GI for follow up Assessment & Plan (09/18/2024 3:31 PM EST): [...] LUE. - pt was given appt with motor electrician 09/27/24 - ER precautions discussed. Low back [...] monitor - patient advised to follow-up with motor electrician Gait instability 12/13/2023 Assessment & Plan (12/13/2023 [...] (12/13/2023 3:23 PM EST): - Following with [facility] - Distal esophageal stricture and stasis and tertiary contractions shown on Barium swallow study. S/p EGD with dilation 17 mm on 06/28/23. Sims's esophagus, hiatal hernia and gastric antral vascular ectasia (GAVE). - Continue PPI. Hiatal hernia 12/01/2023 Assessment & Plan (12/13/2023 3:17 PM EST): - following with [facility], last seen on 08/29/23 [...] as well Dysphagia 02/01/2023 Assessment & Plan (01/08/2025 6:46 PM EDT): >>ASSESSMENT AND PLAN FOR ESOPHAGEAL DYSPHAGIA WRITTEN ON 02/01/2023 5:16 PM BY ANDREW LEDESMA Followed by GI - Previous workup has been negative for aspiration -Patient has Barium Swallow scheduled in February -Continue Aspiration caution at home Assessment & Plan (01/08/2025 6:47 PM EDT): -Followed by [facility], and recently seen during the hospitalization -Previous workup has been negative for aspiration -Patient has Barium Swallow in 02/2023 showed esophageal stricture and abnormal esophageal motility. - s/p EGD with dilation 17 mm on 06/28/23, Sims's esophagus, GAVE, hiatal hernia - s/p EGD on 12/28/24 ulcerated duodenal mass, pathology report carcinoid tumor - s/p UGI on 01/02/25 showed no significant obstruction - Patient is still feeling difficulty in food passage and has been vomiting / coughing frequently - continue omeprazole and sucralfate as prescribed - refer to GI - Continue aspiration caution at home Assessment & Plan (12/02/2023 10:32 AM EST): [...] esophagus, GAVE, hiatal hernia Assessment & Plan (01/08/2025 6:46 PM EDT): >>ASSESSMENT AND PLAN FOR DYSPHAGIA WRITTEN ON 06/07/2023 4:55 PM BY ANDREW LEDESMA Followed by GI -Previous workup has been negative for aspiration -Patient has Barium Swallow in 02/2023 showed esophageal stricture and abnormal esophageal motility. -Anticipating procedure, Barium Dilation. Pt will likely need cardiac clearance >>ASSESSMENT AND PLAN FOR ESOPHAGEAL DYSPHAGIA WRITTEN ON 06/07/2023 4:52 PM BY ANDREW LEDESMA Followed by GI -Previous workup has been negative for aspiration -Patient has Barium Swallow in 02/2023 showed esophageal stricture and abnormal esophageal motility. -GI Provider is planning to have Barium Dilation procedure -Continue Aspiration caution at home Sensorineural hearing loss, bilateral 10/28/2022 Assessment & Plan (11/13/2024 6:28 AM EST): >>ASSESSMENT AND PLAN FOR HL (HEARING LOSS) WRITTEN ON 02/01/2023 5:16 PM BY ANDREW LEDESMA Referred to District Medical Examiner CG was given the number to call to schedule appointment Assessment & Plan (11/13/2024 6:28 AM EST): >>ASSESSMENT AND PLAN FOR SENSORINEURAL HEARING LOSS, BILATERAL WRITTEN ON 06/07/2023 4:10 PM BY ANDREW LEDESMA Referred to District Medical Examiner CG was given the number to call to schedule appointment >>ASSESSMENT AND PLAN FOR HL (HEARING LOSS) WRITTEN ON 06/07/2023 4:56 PM BY ANDREW LEDESMA Patient has new hearing aids Assessment & Plan (10/29/2022 7:04 AM EST): - previously seen by bricklayer tender and ENT - b/l sensorineural hearing loss - refer to bricklayer tender so that he can get hearing aids History of prostate cancer 10/28/2022 Assessment & Plan (07/06/2024 6:40 AM EDT): -s/p radical prostatectomy in 1999 -last seen by urologist in 2019 -prescribed [place] 1000 mcg urethral suppository -pt has not been using frequently -last PSA < 0.04 on 02/03/22 Assessment & Plan (10/30/2022 6:04 AM EST): -s/p radical prostatectomy in 1999 -last seen by urologist in 2018 -prescribed [place] 1000 mcg urethral suppository -pt has not been using frequently -last PSA < 0.04 on 02/03/22 Dependence on renal dialysis 02/05/2021 Assessment & Plan (12/02/2023 10:22 AM EST): -Continue to follow with Nephrology. -Continue current Nephrology indications of dialysis. -Have COMMUNITY SERVICE MANAGER make contact for advisement on Ensure contraindication. Assessment & Plan (02/01/2023 5:13 PM EDT): -Dialysis days MWF -Continue current Tx plan per housing case manager Assessment & Plan (10/30/2022 5:56 AM EST): -Dialysis days MWF -Continue current Tx plan per housing case manager End stage renal disease 02/05/2021 Assessment & [...] Ischemic heart disease 04/22/2016 Assessment & Plan (01/08/2025 5:31 PM EDT): - Configuration Management Architect RENÉ, last seen on 09/27/24 - Optimize risk factor management and secondary prevention Assessment & Plan (11/13/2024 6:38 PM EST): - Configuration Management Architect ALISHAA - Optimize risk factor management and secondary prevention - Rescheduled an appointment due to chest pain Assessment & Plan (09/19/2024 4:09 PM EST): - Configuration Management Architect [facility] - Optimize risk factor management and secondary prevention - Rescheduled an appointment due to chest pain Assessment & Plan (07/06/2024 6:26 AM EDT): - Configuration Management Architect [facility] - Optimize risk factor management and secondary prevention Assessment & Plan (12/02/2023 10:30 AM EST): - Configuration Management Architect: SHAWN, last seen XXX - Continue current medication as prescribed. - Last echocardiogram: Assessment & Plan (06/07/2023 4:09 PM EDT): - Configuration Management Architect: SHAWN, last seen 07/24/22 - Current medications: [...] & Plan (02/01/2023 5:15 PM EDT): - Configuration Management Architect: SHAWN, last seen 07/24/22 - Current medications: [...] & Plan (10/30/2022 5:46 AM EST): - Configuration Management Architect: SHAWN, last seen 07/24/22 - Current medications: [...] surgery 2014 Coronary artery disease invo [place]ving [place] coronary artery of [place] heart without angina pectoris 08/18/2015 Essential hypertension 08/18/2015 Assessment & Plan (01/08/2025 5:29 PM EDT): - Goal BP < 130/80 per ACC/AHA guideline. - Elevated BP today, but recently hypotensive - Continue working on life style modifications. - Previously on metoprolol succinate 100 mg which was discontinued by housing case manager - Previously on ACEI, but discontinued lisinopril [...] Continue checking home BP Assessment & Plan (11/13/2024 6:38 PM EST): - Goal BP < 130/80 per ACC/AHA guideline. - Slightly elevated in clinic 09/18/24 - Continue working on life style modifications. - Previously on metoprolol succinate 100 mg which was discontinued by housing case manager - Previously on ACEI, but discontinued lisinopril [...] succinate 100 mg which was discontinued by housing case manager - Previously on ACEI, but discontinued lisinopril [...] 100 mg was discontinued; will confirm with housing case manager and pharmacist. - Previously on ACEI, but [...] elevated BP for pt today at 142/79 COMMUNITY SERVICE MANAGER states his BP at home is normal [...] descending aorta 02/05/2014 Assessment & Plan (01/08/2025 6:40 PM EDT): -Pt had aneurysm of ascending aorta, aortic arch, and descending aorta - s/p repair in February 2014 -Followed by [facility] vascular service, last seen by Dr. Frank in Nov 2023 -CTA on 11/09/22 showed aorta 6.0 cm maximal in proximal descending thoracic aorta -CTA on 11/17/23 1. Status post repair of [...] identified in the chest, abdomen and pelvis. -Dr. Frank recommenced to consider endovascular repair with stent, if diameter becomes 6 cm previously. Because he is asymptomatic and has multiple risk factors, they agreed to continue conservative management with a follow-up CTA in 1 year -CTA on 12/30/24 showed descending aortic aneurysmal dilatation 6.3 cm, extending to abdominal aorta 4.4 cm. Occluded stent between left subclavian and brachiocephalic. 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 [...] repair in February 2014 -Followed by [facility] vascular service, last seen by Dr. [...] repair in February 2014 -Followed by [facility] vascular service, last seen by Dr. [...] repair in February 2014 -Followed by [facility] vascular service, last seen by Dr. [...] repair in February 2014 -Followed by [facility] vascular service, last seen by Dr. [...] repair in February 2014 -Followed by [facility] vascular service, last seen by Dr. [...] type 2 02/05/2014 Assessment & Plan (01/08/2025 6:49 PM EDT): - HgbA1C is 5.7% on 12/14/24, Goal < 8% due to his age - No longer on medication. Trying to control with diet currently. Previously on metformin and glipizide. - Consider GLP-1 agonist or SGLT-2 inhibitor if A1C > 8% - Last eye exam: [facility] - Last comprehensive foot exam: 06/07/23, high-risk - Last microalbumin test: not indicated since pt has end stage renal dx. worsening proteinuria / nephropathy - Last lipid profile: 09/18/24 - ASA - discontinued - IZ - up to date Assessment & Plan (11/13/2024 6:39 PM EST): - HgbA1C is 5.7% on 06/26/24, Goal < 8% due to his age - No longer on medication. Trying to control with diet currently. Previously on metformin and glipizide. - Consider GLP-1 agonist or SGLT-2 inhibitor if A1C > 8% - Last eye exam: [facility] - Last comprehensive foot [...] DIALYSIS, WITHOUT LONG-TERM CURRENT USE OF INSULIN ([facility]) WRITTEN ON 06/07/2023 4:10 PM [...] DIALYSIS, WITHOUT LONG-TERM CURRENT USE OF INSULIN ([facility]) WRITTEN ON 09/23/2023 7:36 PM [...] DIALYSIS, WITHOUT LONG-TERM CURRENT USE OF INSULIN ([facility]) WRITTEN ON 06/26/2024 10:54 AM [...] A1C > 8% - Last eye exam: [facility] - Last comprehensive foot [...] AND PLAN FOR DIABETES MELLITUS, TYPE 2 ([facility]) WRITTEN ON 02/01/2023 5:12 PM [...] DIALYSIS, WITHOUT LONG-TERM CURRENT USE OF INSULIN ([facility]) WRITTEN ON 2023 11:35 AM [...] thoracic aorta 07/12/2013 Assessment & Plan (01/08/2025 6:35 PM EDT): -Pt had aneurysm of ascending aorta, aortic arch, and descending aorta - s/p repair in February 2014 -Followed by [facility] vascular service, last seen by Dr. [...] a follow-up CTA in 1 year -CTA on 12/30/24 showed 6.3 cm. -Continue risk factor management. -Called [facility] vascular clinic today, and requested a follow up appointment. Faxed CTA report and most recent discharge summary to [facility] [phone]. Assessment & Plan (09/19/2024 4:12 PM EST): -Pt had aneurysm of ascending aorta, aortic arch, and descending aorta - s/p repair in February 2014 -Followed by [facility] vascular service, last seen by Dr. [...] repair in February 2014 -Followed by [facility] vascular service, last seen by Dr. [...] repair in February 2014 -Followed by [facility] vascular service, last seen by Dr. [...] repair in February 2014 -Followed by [facility] vascular service, last seen by Dr. [...] repair in February 2014 -Followed by [facility] vascular service, last seen by Dr. [...] repair in February 2014 -Followed by [facility] vascular service, last seen by Dr. [...] repair in February 2014 -Followed by [facility] vascular service, last seen by Dr. 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 (CMS/HCC); Gastrointestinal hemorrhage, unspecified gastrointestinal hemorrhage type; End stage renal disease (CMS/HCC); Anemia, unspecified type; Type 2 diabetes mellitus with chronic kidney disease on chronic dialysis, without long-term current use of insulin (CMS/HCC); Abnormal lung sounds; Pneumonia of both lungs due to infectious organism, unspecified part of lung; Wheezing; Essential hypertension; Esophageal dysphagia; Ischemic heart disease; Subacute cough; Neuroendocrine tumor 01/08/[address] [address] Adriane Costa MD Durable Medical Equipment 01/08/2025 Travel 12/28/2024 Patient Outreach [facility] [address] [place] [address] Adriane Costa MD Pre-visit Planning (HDF scheduled. ) 12/26/2024 Orders Only GENERIC EXTERNAL DATA DEPARTMENT Provider, Generic External Data 12/18/2024 Refill [facility] [address] [place] [address] Adriane Costa MD 12/13/2024 1:30 PM EST Office Visit [address] [address] My Hawkins ANP Gastrointestinal hemorrhage with melena (Primary Dx); Type 2 diabetes mellitus with chronic kidney disease on chronic dialysis, without long-term current use of insulin ([facility]); Erosive esophagitis; Atrophic gastritis with hemorrhage; Duodenitis with bleeding; Hospital discharge follow-up; Pleural effusion on left; Aneurysm of descending thoracic 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 ([facility]); Essential hypertension; Bruise; Confusion; Nonintractable episodic headache, unspecified headache type 12/13/2024 Travel 12/11/2024 Telephone [facility] [place] [address] Adriane Costa MD Appointment Request 12/11/[address] [address] Adriane Costa MD may recall 12/04/2024 Orders Only [facility] External Provider, [facility] 11/30/2024 Telephone [facility] [place] [address] Adriane Costa MD Durable Medical Equipment (Bo[employer]) 11/13/2024 1:15 PM EST Office Visit [facility] [place], [place] [phone] Adriane Costa MD 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 ([facility]) (Primary Dx); Essential hypertension; Ischemic heart disease; End stage renal disease ([facility]); Acquired hypothyroidism; Type 2 diabetes mellitus with chronic kidney disease on chronic dialysis, without long-term current use of insulin ([facility]); Encounter for immunization; Weight loss; Protein-calorie malnutrition, unspecified severity ([facility]); Dyslipidemia; Allergic rhinitis, unspecified seasonality, unspecified trigger; Subacute cough 11/13/2024 Travel 11/09/2024 Telephone [facility] [place] [address] Aydee Hein MA chart prep 10/19/2024 Refill [facility] [place], [place] [phone] Adriane Costa MD from Last 3 Months [...] Description 01/24/2025 2:30 PM EDT Office Visit [facility] [address] [place] [address] My Hawkins ANP [address] [place] [address] Health Maintenance Due Date Last Done Comments [...] dialysis, without long-term current use of insulin ([facility]) POCT GLUCOSE Routine 12/13/2024 1:54 PM EST Type 2 diabetes mellitus with chronic kidney disease on chronic dialysis, without long-term current use of insulin ([facility]) CT ABDOMEN PELVIS WO CONTRAST Routine 12/04/2024 3:01 PM EST XR CHEST 1 VIEW Routine 12/04/2024 2:08 PM EST LIPID PANEL WITH REFLEX TO DIRECT LDL Routine 09/18/2024 3:43 PM EST Type 2 diabetes mellitus with chronic kidney disease on chronic dialysis, without long-term current use of insulin ([facility]) Dyslipidemia HM DIABETES EYE EXAM Routine 03/27/2024 from Last 3 Months or Most Recently Relevant to Health Maintenance Results * XR Chest 2 Views (01/08/2025 10:53 AM EDT) Anatomical Region Laterality Modality Chest Radiographic Loren ging 01/08/2025 10:5 3 AM EDT Narrative 01/08/2025 11:24 AM EDT ?[facility] ?[address] ?[place] [address] ?XRay Report ? Signed ? Patient: Petar Rafael,Silfredys ?MR# ?? : [id number] ? : 1940 ?Acct:[id number] ? Age/Sex: 84 / M ?ADM Date: //25 ? Loc: HO.HHCX ? Attending Dr: Adriane Costa MD ? Ordering Physician: Adriane Costa MD ?? Date of Service: 01/08/25 ?? Procedure(s): XR chest 2V ?? Accession Number(s): [id number] ? cc: Adriane Costa MD ? EXAMINATION: [...] DD/ 1053 ? TD/TT: 01/08/25 1112 ? Ice Delivery Driver: ? Procedure Note Yamila, Image - 01/08/2025 [facility] [address] [place] [address] XRay Report Signed Patient: Ramonita ForrestysMR# : [id number] : 9Acct:[id number] Age/Sex: 84 / MADM Date: 01/08/25 Loc: HO.HHCX Attending Dr: Adriane Costa MD Ordering Physician: Adriane Costa MD Date of Service: 01/08/25 Procedure(s): XR chest 2V Accession Number(s): [id number] cc: Adriane Costa MD EXAMINATION: XR CHEST [...] 01/08/25 1120 DD/ 1053 TD/TT: 01/08/25 1112 Ice Delivery Driver: Adriane Costa MD IMG XR PROCEDURES Final Result * FL Upper GI Series (01/02/2025 10:30 AM EDT) Anatomical Region Laterality Modality Body Radiographic Loren ging 01/02/2025 10:3 0 AM EDT Narrative 01/02/2025 12:45 PM EDT ? [facility] ?[address] ?[place] [address] ? Fluoroscopy Report ? Signed ? Patient: Petar Hall,Silfredys ?MR# ?? : [id number] ? : 1940 ?Acct:[id number] ? Age/Sex: 84 / M ?ADM Date: 03/19/25 ? Loc: HO.IMC ?467-1 ? Attending Dr: Saman Florez MD ? Ordering Physician: Yadira Thomas MD ?? Date of Service: 01/02/25 ?? Procedure(s): FL upper GI series ?? Accession Number(s): [id number] ? cc: Adriane Costa MD; Yadira Thomas [...] evaluation of the esophagus and stomach. ? Supervisor Landscape examination demonstrates cardiomegaly with aortic valve ?? [...] DD/ 1030 ? TD/TT: 01/02/25 1050 ? Ice Delivery Driver: ? Procedure Note Brenda Driscoll - 01/02/[address] [address] Fluoroscopy Report Signed Patient: Petar HallRitajimenezysMR# : [id number] : 1940Acct:[id number] Age/Sex: 84 / MADM Date: 12/26/24 Loc: [facility] 467-[address]: Saman Florez MD Ordering Physician: Yadira Thomas MD Date of Service: 01/02/25 Procedure(s): FL upper GI series Accession Number(s): [id number] cc: Adriane Costa MD; Yadira Thomas MD [...] to evaluation of the esophagus and stomach. Supervisor Landscape examination demonstrates cardiomegaly with aortic valve replacement [...] 01/02/25 1242 DD/ 1030 TD/TT: 01/02/25 1050 Ice Delivery Driver: [facility] External Provider IMG FLU OROSCOPY PROCEDURES Final Result * CTA Chest w/ and w/o Contrast (12/30/2024 12:37 PM EDT) Anatomical Region Laterality Modality Body, Chest Computed Tomogra phy 12/30/2024 12:3 7 PM EDT Narrative 12/30/2024 12:40 PM EDT ? [facility] ?[address] ?[place] [address] ? CT Scan Report ? Signed with Addenda ? Patient: Petar Rafael,Silfredys ?MR# ?? : [id number] ? : 1940 ?Acct:[id number] ? Age/Sex: 84 / M ?ADM Date: 03/19/25 ? Loc: [facility] ?462-1 ? Attending Dr: Estefany Sargent MD ? Ordering Physician: Estefany Sargent MD ?? Date of Service: 12/30/24 ?? Procedure(s): CT angio chest aorta ?? Accession Number(s): [id number] ? cc: Estefany Sargent MD; Adriane Costa MD ? Report Number: ?? [id number]: Total DLP = ??462.00 mGy-cm ?ADDENDUM ?? [...] by Niels Tinoco MD in OV> ? 12/30/247 ?? Addendum Cosigned By: ? DD/ ? [...] There is dense calcification of the patient's [place] coronary arteries. ?? Borderline arias chamber cardiac [...] DD/ 1237 ? TD/TT: 12/30/24 1237 ? Ice Delivery Driver: ? Procedure Note Yamila, Brenda - 12/30/[address] [place] [address] [address] Scan Report Signed with Cate Patient: Ramonita ForrestysMR# : [id number] : 9Acct:[id number] Age/Sex: 84 / MADM Date: 12/26/24 Loc: [facility] 462-[address]: Estefany Sargent MD Ordering Physician: Estefany Sargent MD Date of Service: 12/30/24 Procedure(s): CT angio chest aorta Accession Number(s): [id number] cc: Estefany Sargent MD; Adriane Costa MD Report Number: [id number]: Total DLP = 462.00 mGy-cm ADDENDUM This document has been electronically signed by: Niels Tinoco MD on 12/30/2024 12:37:19 ADDENDUM: This report was discussed with MYA Cannon on Dec 30, 2024 12:46:00 EDT. This document has been electronically signed by: LuisaRoxy on 12/30/2024 12:46:21 Addendum Dictated By: Niels Tinoco MD Addendum Signed By: <Electronically signed by MD Qiana in OV> 12/30/24 124 Addendum Cosigned By: DD/ TD/TT: 12/30/24 CLINICAL [...] There is dense calcification of the patient's [place] coronary arteries. Borderline arias chamber cardiac enlargement. [...] Tinoco MD in OV> 12/30/24 1238 DD/ 1237 TD/TT: 12/30/24 1237 Ice Delivery Driver: [facility] External Provider IMG CT PROCEDURES Edited Result - Final * XR Chest 1 View (12/30/2024 10:24 AM EDT) Only the most recent of3 resultswithin the time period is included. Anatomical Region Laterality Modality Chest Radiographic Loren ging 12/30/2024 10:2 4 AM EDT Narrative 12/30/2024 10:25 AM EDT ? [facility] ?[address] ?[place] [address] ?XRay Report ? Signed with Addenda ? Patient: Bi Forrest ?MR# ?? : [id number] ? : 1940 ?Acct:[id number] ? Age/Sex: 84 / M ?ADM Date: 12/26/24 ? Loc: [facility] ?462-1 ? Attending Dr: Estefany Sargent MD ? Ordering Physician: Estefany Sargent MD ?? Date of Service: 12/30/24 ?? Procedure(s): XR chest 1V ?? Accession Number(s): [id number] ? cc: Estefany Sargent MD; Adriane Cosat MD ?ADDENDUM ?? This document has been [...] Comparison: CR/SR - XR CHEST 1V - 12/26/24 14:39 EDT ? Findings: ?? Sternotomy wires [...] DD/ 1024 ? TD/TT: 12/30/24 1024 ? Ice Delivery Driver: ? Procedure Note Brenda Driscoll - 12/30/[address] [address] XRay Report Signed with Cate Patient: Ramonita ForrestysMR# : [id number] : 9Acct:[id number] Age/Sex: 84 / MADM Date: 12/26/24 Loc: [facility] 462-[address]: Estefany Sargent MD Ordering Physician: Estefany Sargent MD Date of Service: 12/30/24 Procedure(s): XR chest 1V Accession Number(s): [id number] cc: Estefany Sargent MD; Adriane Costa MD [...] Comparison: CR/SR - XR CHEST 1V - 12/26/24 14:39 EDT Findings: Sternotomy wires are evident. [...] 12/30/24 1025 DD/ 1024 TD/TT: 12/30/24 1024 Ice Delivery Driver: [facility] External Provider IMG XR PROCEDURES Edited Result - Final * OBSX1 (12/26/2024 6:58 PM EDT) OBS1 POSITIVE NEGATIVE [facility] 12/26/2024 6:58 PM EDT 12/26/2024 7:06 PM EDT Generic External Data Provider LAB BLOOD ORDERAB LES Final Result [facility] [address] [place] [address] [phone] * POCT HGB A1C (12/13/2024 2:02 PM EST) Pathologist [facility] Hemoglobin A1C 5.7 4.0 - 6.0 % QC Media Lot # [id number] Lot# Expiration Date [id number] Blood 12/13/2024 2:02 PM EST us [facility] ANP POINT OF CARE TEST ENTER/EDIT OR DERABLES Final Result * POCT Glucose (12/13/2024 1:54 PM EST) [facility] Glucose Blood, POC 162 60 - 200 [...] EST Narrative 12/04/2024 3:33 PM EST ? [facility] ?[address] ?[place] [address] ? CT Scan Report ? Signed ? Patient: Petar Hall,Bi ?MR# ?? : [id number] ? : 1940 ?Acct:[id number] ? Age/Sex: 84 / M ?ADM Date: 12/04/24 ? Loc: HO.ED ? Attending Dr: ? Ordering Physician: Rhea Riley MD ?? Date of Service: 12/04/24 ?? Procedure(s): CT abdomen pelvis wo IV con ?? Accession Number(s): [id number] ? cc: Rhea Riley MD; Adriane Costa MD ? Report Number: ?? [id number]: Total DLP = ??478.00 mGy-cm ?? EXAMINATION: [...] DD/ 1501 ? TD/TT: 12/04/24 1516 ? Ice Delivery Driver: ? Procedure Note Dondustininterpreter, Image - 12/04/[address] [place] [address] [address] Scan Report Signed Patient: Ramonita ForrestysMR# : [id number] : 9Acct:[id number] Age/Sex: 84 / MADM Date: 12/04/24 Loc: HO.ED Attending Dr: Ordering Physician: Rhea Riley MD Date of Service: 12/04/24 Procedure(s): CT abdomen pelvis wo IV con Accession Number(s): [id number] cc: Rhea Riley MD; Adriane Costa MD Report Number: [id number]: Total DLP = 478.00 mGy-cm EXAMINATION: CT [...] by: Theodore Hassan MD 12/04/2024 03:30 PM [facility] Dictated By: Theodore Hassan MD Signed By: <Electronically signed by Theodore Hassan MD in OV> 12/04/24 1530 DD/ 1501 TD/TT: 12/04/24 1516 Ice Delivery Driver: [facility] External Provider IMG CT PROCEDURES Final Result * (ABNORMAL) Lipid Panel with Reflex to Direct LDL (09/18/2024 3:43 PM EST) Triglycerides 103 <150 mg/dL [facility] Comment:Desirable Triglyceri de: less than 150 mg/dLBorderline High Triglyceride 150-199 mg/dLHigh Triglyceride: 200-499 mg/dLVery High Triglyceride: greater than or equal to 5OO mg/dL Cholesterol 157 <200 mg/dL [facility] Comment:Desirable Cholestero l: less than 200 mg/dLBorderline High Cholesterol: 200-239 mg/dLHigh Cholesterol: greater than 239 mg/dL LDL Cholesterol Calculated 97 <100 mg/dL [facility] Comment:Desirable LDL: less than 100 mg/dLNear Optimal/Above Optimal LDL: 110- 129 mg/dLBorderline High LDL: 130-159 mg/dLHigh LDL: 160-189 mg/dLVery High LDL: greater than or equal to 190 mg/dL HDL Cholesterol 40(L) >40 mg/dL [facility] Comment:Desirable HDL: great er than 40 mg/dL Note: This HDL assay may give artificially low results in patients with liver disease. Blood 09/18/2024 3:43 PM EST 09/18/2024 4:00 PM EST Adriane Costa MD LAB BLOOD ORDERABLES Final Resul t [facility] [address] [place], [place] [phone] [phone] * Hm Diabetes Eye Exam (03/27/2024) Eye Exam Normal Normal 03/27/2024 Historical Provider HEALTH MAINTENANCE Final Result from Last 3 Months or Most Recently Relevant to Health Maintenance Insurance [facility] * Guarantor: [employer]ar[employer] Account Type Relation to Patient Date of Phone Billing Address Personal/Family Self [address] Care Teams Turbine Attendant Relationship Specialty Start Date End Date Adriane Costa MD [address] [place] [id number] PCP - General Family Medicine 06/14/13 [facility] 01/07/25
--- OUTSIDE RECORDS SUMMARY | 2025-01-11 10:25 | XMS_ITS | Encounter Summary ---
Author Organization [employer] [facility] Address [address] [place] [address] Care Team Providers Care Twist Packer Name Role Phone Adriane Higuera MD Primary Care Provider [phone] Reason for Referral * Consultation (Routine) - Closed Specialty Diagnoses / Procedures Referred By Contbrit t Referred To Contact Podiatry Diagnoses Type 2 diabetes mellitus with chronic kidney disease on chronic dialysis, without long-term current use of insulin (CMS/HCC) End stage renal disease (CMS/HCC) Venous insufficiency Adriane Higuera MD [address] [place] [address] Phone: tel: fax: Trevor Russell DPM [address] [address] Phone: tel: fax: Referral ID Status Reason Start Date Expiration Date V isits Requested Visits Authorized [id number] Closed Specialty Services Required 11/30/2023 11/29/2024 1 1 Encounter Details Date Type Department Care Team (Late st Contact Info) Description 11/30/2023 Orders Only [facility] [address] [place] [address] Adriane Higuera MD [address] [place], [place] Type 2 diabetes mellitus with chronic [...] Description 01/24/2025 2:30 PM EDT Office Visit [facility] [address] [place] [address] My [facility] ANP [address] [place] [address] Scheduled Referrals Name Type Priority Associated Diagnoses Orde r Schedule Referral to Podiatry Outpatient Referral Routine Type 2 diabetes mellitus with chronic kidney disease on chronic dialysis, without long-term current use of insulin ([facility]) End stage renal disease ([facility]) Venous insufficiency Expected: 11/30/2023 (Approximate), Expires: 11/30/2024 documented as of this encounter Visit Diagnoses Diagnosis Type 2 diabetes mellitus with chronic kidney disease on chronic dialysis, without long-term current use of insulin ([facility])- Primary End stage renal disease ([facility]) End stage renal disease Venous insufficiency Unspecified venous (peripheral) insufficiency documented in this encounter Additional Health Concerns Assessment Noted Time PHQ-9 Depression Total Score: 0 02/02/20 23 3:52 PM EDT documented as of this encounter Care Teams Twist Packer Relationship Specialty Start Date End Date Adriane Higuera MD [address] [place] [address] PCP - General Family Medicine 06/14/13 [facility] 01/07/25 documented as of this encounter
--- OUTSIDE RECORDS SUMMARY | 2025-01-11 10:25 | XMS_ITS | Data Portability ---
Author Organization [employer] [facility], Id in - [facility] Address [address] [place] [phone] Care Team Providers Care Textile Machinery Sales Representative Name Role Phone HIM CCA OTHER LUC COSTA Primary Care Provider Assessment Encounter Date Assessment Date Assessment LastModified by Organization Details LastModified Time 06/14/2024 06/14/2024 84 yo M with recent fall to hip/buttock with resultant lumbosacral pain, and admission for sepsis 2/2 bacteremia due to HD line infection, calling in with ongoing severe lower back pain. Currently, pt is sometimes able to shuffle around w/the walker but is mostly unable to get around effectively. Patient last took tylenol 1g at 12p (9 hours prior to visit), was minimally helpful. Pt was reportedly offered subacute rehab while admitted, but declined in favor of home with home PT. PT came today. Pt with nml VS. has limited pain management options given ESRD on HD. Discussed options of increasing tylenol to 1g q8 hrs vs going to ED for higher pain need and potential re-evaluation for MARK. Pt opts to stay home with PT and scheduled tylenol. Reviewed precautions. [email or web address] Not available 06/14/2024 22:18:00 Plan of Treatment Reminders Order Date Submit Date Provider Last Modified By Organization Details Last Modified Time Details Appointments None recorded. Lab rapid flu (A+B) 2022 023 [facility], [address] [place] [address], [id number] 3 15:58:19 rapid strep group A, throat 2022 023 [facility], [address] [place] [address], [id number] 3 15:58:28 unlisted lab - covid-19 (novel coronaviru s) PCR 2022 023 [facility] (Centralized Electronic Ordering - All Locations), Patient Can Go To The Location Of Their Choice, [id number] 08:07:12 Referral None recorded. Procedures None recorded. Surgeries None recorded. Imaging None recorded. Medication Orders Ciprodex 0.3 %-0.1 % ear drops,susp ension 2022 023 [facility], [address] [place] [address], [id number], 11:10:18 Patient TargetsNo targets recorded. Patient InstructionsNo instructions recorded. Reason for Referral None Reported. Results Created Date Observation Date Name Description Value Unit Range Abnormal Flag Note LastModifiedBy Organization Detail LastModifiedTime 07/26/2007/26/2023 COVID -19 (NOVE L CORON AVIRU S) PCR covid-19 PCR specimen source NASAL Not Available [facility] (Centralized Electronic Ordering - All Locations) Patient Can Go To The Location Of Their Choice, [id number] 07/28/2023 08:07:12 07/26/2007/28/2023 COVID -19 (NOVE L CORON AVIRU S) PCR covid-19 PCR result (neg) NEGAT JOSH 2018- novel Coron aviru s (2018 -nCoV ) not detec misti by real- time RT-PC R. Note: If clini lopez suspi cion for COVID -19 is high, william nue to maint ain preca ution s and consi payal repea t testi ng. Resul t repor misti to the [facility]. To preve nt error s in diagn osis, test resul ts shoul d be inter prete d in the leo xt of clini lopez findi ngs and other labor atory data. Rare polym orphi sms exist that could lead to false -nega tive or false -posi tive resul ts. If resul ts obtai emiliano do not match the clini lopez findi ngs, addit ional testi ng shoul d be consi dered . This test has been autho rized by the FDA under an Emerg ency Use Autho rizat ion (EUA) for use by autho rized labor atori es. Testi ng perfo rmed by real time PCR utili [facility] MILLICENT 6800 SARS- CoV-2 test. Not Available [facility] (Centralized Electronic Ordering - All Locations) Patient Can Go To The Location Of Their Choice, [id number] 07/28/2023 08:07:12 07/26/2007/26/2023 rapid strep group A, throa t Strep negati ve Not Available Main - [facility] ed [address] [place] [address], [id number] 07/26/2023 15:58:06 07/26/2007/26/2023 rapid flu (A+B) Flu negati ve Not Available Main - [facility] ed [address] [place] [address], [id number] 07/26/2023 15:57:49 Result Notes None recorded. Medical Equipment None Reported. Medications Name Sig Start Date Stop Date Status Note LastModified by Organization Details LastModified Time magic mouthwash SWISH AND SPIT 10 ML BY MOUTH FOUR TIMES DAILY active Not Available Not Available No t Available medbox status USE DIRECTED active Not Available Not Available No t Available atorvastatin 80 mg tablet TAKE 1 TABLET BY MOUTH AT BEDTIME active Not Available Not Available No t Available Lidocaine Viscous 2 % mucosal solution active Not Available Not Available Not Available ondansetron HCl 4 mg tablet active Not Available Not Available Not Available midodrine 5 mg tablet TAKE 1 TABLET DURNIG DIALYSIS DAYS ONLY active Not Available Not Available No t Available cyanocobalam in (vit B-12) 1,000 mcg tablet TAKE 1 TABLET BY MOUTH EVERY MORNING active Not Available Not Available No t Available allopurinol 100 mg tablet TAKE 1 TABLET BY MOUTH EVERY MORNING active Not Available Not Available No t Available aspirin 81 mg tablet,delay ed release TAKE 1 TABLET BY MOUTH EVERY MORNING active Not Available Not Available No t Available levothyroxin e 50 mcg tablet TAKE 1 TABLET BY MOUTH EVERY MORNING active Not Available Not Available No t Available omeprazole 20 mg capsule,chris yed release TAKE 1 CAPSULE BY MOUTH AT BEDTIME HEARTBURN active Not Available Not Available No t Available folic acid 1 mg tablet TAKE 1 TABLET BY MOUTH EVERY MORNING active Not Available Not Available No t Available ipratropium bromide 21 mcg (0.03 %) nasal spray active Not Available Not Available Not Available Vitamin D3 25 mcg (1,000 unit) capsule TAKE 1 CAPSULE BY MOUTH EVERY MORNING active Not Available Not Available No t Available ciprofloxaci n 0.3 %-dexamethas one 0.1 % ear drops,suspen cherie INSTILL 4 DROPS IN INTO THE AFFECTED EAR(S) TWICE DAILY FOR 7 DAYS active Not Available Not Available N ot Available lactulose 10 gram/15 mL oral solution TAKE 15 ML BY MOUTH ONCE EVERY 2-3 DAYS NEEDED CONSTIPATIO N active Not Available Not Available No t Available Restasis MultiDose 0.05 % eye drops INSTILL 1 DROP IN EACH EYE TWICE DAILY active Not Available Not Available Not Available Vitals Date Recorded Body weight Heart rate Respiratory rate Oxygen saturation Oxygen saturation in Arterial blood by Pulse oximetry Body temperature Body height Systolic blood pressure Diastolic blood pressure Provider Name and Address Organization Details Last Updated DateTime 3 15107.5 6 g 52 /min 18 /min 95 % 95 % 98.4 [degF] 175.26 cm 116 mm[Hg] 60 mm[Hg] Not Available [employer] 3 14:39:51 Date Recorded Body temperature Body weight Oxygen saturation Oxygen saturation in Arterial blood by Pulse oximetry Respiratory rate Body height Heart rate Systolic blood pressure Diastolic blood pressure Provider Name and Address Organization Details Last Updated DateTime 4 98.5 [degF] 94549.5 2 g 97 % 97 % 16 /min 180.34 cm 75 /min 149 mm[Hg] 70 mm[Hg] Not Available [employer] 4 21:17:27 Date Recorded Body weight Oxygen saturation Oxygen saturation in Arterial blood by Pulse oximetry Respiratory rate Heart rate Body temperature Systolic blood pressure Diastolic blood pressure Provider Name and Address Organization Details Last Updated DateTime 4 05628.5 6 g 95 % 95 % 16 /min 80 /min 98.2 [degF] 152 mm[Hg] 84 mm[Hg] Not Available [employer] 4 16:18:35 Social History None recorded. Functional Status None recorded. Mental Status None recorded. Family History Nothing Reported. Medical History No medical history recorded. Past Encounters Encounter ID Performer Location Encounter Start Date Encounter Closed Date Diagnosis/Indication Diagnosis SNOMED-CT Code Diagnosis ICD10 Code Diagnosis Note [id number] MALINI CASTRO MD Main - [facility] [address] [place] [phone] 07/26/2023 14:39:49 07/27/2023 22:26:29 Acute otitis externa 96169596 H60.509 Evaluation in the field was performed by my assistant shift supervisor colleague, as noted above, I provided real-time direction and supervisio n for this visit. 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 Son noticed some blood in the left ear canal but unsure if it occurred after pt used Qtip. No drainage from the ear. Pain respond to Tylenol. Covid, Flu and rapid step negative today . Impression :URI symptomsLe ft otitis externa Plan:Will send COVID PCRGiven pain mostly on the Left ear will start Ciprodex ( safe even if TM is perforated Continue Tylenol as needed for pain Primary care, consider__ _ Dispositio n: We discussed the diagnostic uncertaint y of home visits and the risk associated with this. In this case, the patient and I felt this to be an acceptable and reasonable amount of risk given the benefit of avoiding an ED visit. We discussed the need to seek care urgently/e mergently in the setting of any new or worsening serious symptoms, particular ly fevers, chills, worsening cough, SOB, inability to tolerate PO , worsening ear pain or any other concerns . Upper resp iratory infection [id number] J06.9 [id number] FAMILIA GREEN MD Main - [facility] [address] [place] [phone] 06/14/2024 21:17:12 06/18/2024 22:00:27 Low back pain [id number] M54.50 [id number] Roz Leon MD Main - [facility] [address] [place] [phone] 08/03/2024 16:18:27 08/06/2024 21:12:45 Onychomycosis of toenails [id number] B35.1 84 year old male with chronic onychomyco sis, being evaluated for itching of the R toe of unclear duration. Patient denies trauma or pain, just has itching. Exam notable for normal vital signs, R toes with thickened discolored nails on multiple toes, mild discolorat ion of third toe with a superficia l small white skin wound, with good capillary refill, no tenderness to palpation. Presentati on consistent with chronic onychomyco sis and a corn of the third toe, with superficia l ulceration that is the likely source of the itching. Recommend outpatient podiatry referral, can use OTC topicals for symptomati c relief, such as hydrocorti sone or lidocaine as needed. I have reviewed and agree with the assessment and plan as documented by the assistant shift supervisor. I provided real-time medical direction for this encounter and was immediatel y available to provide additional phone-base d assistance as needed. We discussed the diagnostic uncertaint y of home visits and associated risks. We discussed the need to seek care urgently/e mergently in the setting of any new or worsening symptoms. Health Concerns Section Related Observation LastModified by Organization Detai ls LastModified Time None Recorded Concern Status LastModified by Organization Details LastModified Time None Recorded Advance Directives Directive None Recorded Payers Encounter Date Sequence Insurance Name Policy Number Policy Johnson Covered Member ID Johnson Member ID Guarantor Name 07/26/2023 1 [facility] - DOS ON OR AFTER 2023 - DUAL ELIGIBLE - PRISON OPTIONS AND ONE CARE (MEDICARE REPLACEMENT/AD VANTAGE - HMO) Ritafrnikky Petar-Rami alvarez [id number] Silfredys A Petar-Rami alvarez 06/14/2024 1 [facility] - DOS ON OR AFTER 2023 - DUAL ELIGIBLE - PRISON OPTIONS AND ONE CARE (MEDICARE REPLACEMENT/AD VANTAGE - HMO) Silfrednewton Petar-Rami alvarez [id number] Silfredys A Petar-Rami alvarez 08/03/2024 1 [facility] - DOS ON OR AFTER 2023 - DUAL ELIGIBLE - PRISON OPTIONS AND ONE CARE (MEDICARE REPLACEMENT/AD VANTAGE - HMO) Ritafrednewton Petar-Rami alvarez [id number] Silfredys A Petar-Rami alvarez Notes Date Note Type Note Provider Name and Address Organization Details Recorded Time 07/26/2023 text/html HPI: Patient with history or bilateral hearing loss and post CVA. Two day history or left ear pain. Bleeding yesterday following use of Qtip with Son. Slight sore throat. No fever .................... .................... .................... .................... .................... .................... .................... . [facility] Nursing Assessment: Comments: CG reports the member is having a sore throat -congestion - Denies fever and chills - Left side ear pain - Denies SOB - Decreased PO intake - Mesfin JORGE .................... .................... .................... .................... .................... .................... .................... . Concrete Engineering Technician Note From Gena Merlos: Sent to a call for a pt complaining of left ear pain and sore throat. [facility] arrives on scene, pt is alert and oriented, airway is patent. Pt complains of left ear pain and sore throat x 2 days. Pt's son noted blood/ear wax in pt's left ear yesterday which has resolved. Pt states ear pain decreased yesterday after ear was cleaned. No ear pain with movement of ear lobe/outer ear. Pt denies burton, dizziness, sinus pain, runny nose, cough(other than baseline), sob, n/v/d, abd pain, fever, or loc. BP:116/60, P:52, RR:18, SpO2:95% RA, T:98.4; Head: unremarkable, Throat: erythema, no edema or exudate noted; Lung sounds: clear bilaterally; Abdomen: soft, non-tender, no distention; Back: unremarkable; Extremities: unremarkable; Skin: pink, warm, dry; Rapid covid test: neg, rapid flu test: neg, rapid strep test: neg; [facility] consulted and orders PCR covid test to be taken to [facility]. [facility] sends script for ear drops to pt's pharmacy. Red flags discussed. Pt has no further questions. [facility] Lab Orders: unlisted lab - covid-19 (novel coronavirus) PCR: Performed .................... .................... .................... .................... .................... .................... .................... . Disposition: Fulfilled MALINI CASTRO MD [address] [place] [address],[address], [place], [phone], [employer] 07/26/2023 16:01:32 06/14/2024 text/html CRC Nurse Triage Notes (Kerri Jason): Reason For Request: Pt's son Edward reporting severe back pain near lower hip>screams anytime he moves>experienced a fall 2 weeks and went to [facility] for 12 days for infection inside his body Chief Complaints: Pain PMH: Diabetes, Hypertension, Heart Disease, Other Other Allergies: Alleve Comments: 84 year old male with PMH: DM, HTN, heart disease. dialysis M/W/F, Right chronic shoulder painAllergies: Alleve, and other one unsure, pls verify c/o left hip pain x 4-5 days, recently in the hospital and treated for an infection, member did fall about 2 weeks ago, x-ray did not show any fractures, member did fall onto left side and face at that time. being treated w/ IV ABX along with ? of an infected dialysis line per son. Son was able to give most information, none provided by member. 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 No pain but itching. .................... .................... .................... .................... .................... .................... .................... . [facility] Nurse Triage Notes (Janett Washington): Chief Complaints: Wound Care PMH: Hypertension, Para or Quadraplegia, Diabetes, Hypertension, Heart Disease Other Allergies: Alejandro inhibitors,NSAIDS Comments: HPI reviewed. NE .................... .................... .................... .................... .................... .................... .................... . Concrete Engineering Technician Note From Vik Lynn: Pt co itchy 3rd toe. Pt son was concerned for infection. Pt denies pain to toe, redness, swelling, injury, insect bits, sob, or CP. Baseline vitals assessed,WNL, Afebrile. Toe assessment, slight discoloration, and dryness/ashy. Neg redness, hot to touchor pain on palpation. Pedal pulses palpable, does not appear to have infection. [facility] Edward contacted and advised hydrocortisone cream and follow up with uke driver. Education on signs indicating the ER. .................... .................... .................... .................... .................... .................... .................... . Disposition: Fulfilled Roz Leon MD [address] [facility],[address], [place], [phone], [employer] 08/03/2024 16:46:40
--- OUTSIDE RECORDS SUMMARY | 2025-01-11 10:25 | XMS_ITS | Encounter Summary ---
Author Organization [email or web address] [facility] Address [address] [place] [address] Care Team Providers Care Operation Manager Name Role Phone Adriane Higuera MD Primary Care Provider [phone] Reason for Visit * Reason Comments Med Refill Encounter Details Date Type Department Care Team (Late st Contact Info) Description 01/27/2023 Refill [facility] [address] [place] [address] Adriane Higuera MD [address] [place] [address] Nausea Social History Tobacco Use Types Packs/Day [...] Description 01/24/2025 2:30 PM EDT Office Visit [facility] [address] [place], [place] [phone] My Hawkins ANP [address] [place] [address] documented as of this encounter Visit Diagnoses Diagnosis Nausea Nausea alone documented in this encounter Care Teams Operation Manager Relationship Specialty Start Date End Date Adriane Higuera MD [address] [place] [address] PCP - General Family Medicine 06/14/13 [facility] 01/07/25 documented as of this encounter
--- OUTSIDE RECORDS SUMMARY | 2025-01-11 10:25 | XMS_ITS | Encounter Summary ---
Author Organization [email or web address] Address [address] [place] [address] Care Team Providers Care Wallcovering Texturer Name Role Phone Adriane Higuera MD Primary Care Provider Encounter Details Date Type Department Care Team (Late st Contact Info) Description 01/09/2025 Telephone [facility] [address] [place], [place] [phone] Adriane Higuera MD [address] [place], [place] [phone] Social History Tobacco Use Types Packs/Day Years [...] encounter Miscellaneous Notes * Telephone Encounter - Adriane Higuera MD - 01/09/2025 9:20 AM EDT Spoke with patient's career technology teacher, Casandra, about patient's condition. Requested palliative care assessment through [facility]. Casandra stated that there have been a shortage in palliative care staffing, and Casandra will check with [facility] or [facility] for palliative care service. documented in this encounter Plan of Treatment Upcoming Encounters Date Type Department Care Team (Late st Contact Info) Description 01/24/2025 2:30 PM EDT Office Visit [facility] [address] [place] [address] My Hawkins ANP [address] [place] [address] documented as of this encounter Visit Diagnoses Not on filedocumented in this encounter Additional Health Concerns Assessment Noted Time PHQ-9 Depression Total Score: 0 11/13/19 1:31 PM EST documented as of this encounter Care Teams Wallcovering Texturer Relationship Specialty Start Date End Date Adriane Higuera MD [address] [place] [address] PCP - General Family Medicine 06/14/13 [facility] 01/07/25 documented as of this encounter
--- OUTSIDE RECORDS SUMMARY | 2025-01-11 10:25 | XMS_ITS | Encounter Summary ---
Author Organization [facility] Address [address] [place] [address] Care Team Providers Care Community Health Director Name Role Phone Adriane Higuera MD Primary Care Provider Reason for Visit * Reason Comments Med Refill Encounter Details Date Type Department Care Team (Late st Contact Info) Description 02/21/2023 Refill [facility] [address] [place], [place] [phone] Alecia Flowers MD [address] [place], [place] [phone] Nausea Social History Tobacco Use Types Packs/Day [...] Description 01/24/2025 2:30 PM EDT Office Visit [facility] [address] [place], [place] [phone] My Hawkins ANP [address] [place] [address] documented as of this encounter Visit Diagnoses Diagnosis Nausea Nausea alone documented in this encounter Additional Health Concerns Assessment Noted Time PHQ-9 Depression Total Score: 0 02/02/20 23 3:52 PM EDT documented as of this encounter Care Teams Community Health Director Relationship Specialty Start Date End Date Adriane Higuera MD [address] [place] [address] PCP - General Family Medicine 06/14/13 [facility] 01/07/25 documented as of this encounter
--- OUTSIDE RECORDS SUMMARY | 2025-01-11 10:25 | XMS_ITS | Clinical Summary ---
Author Organization [facility] Facility Address [address] [address] Care Team Providers Care Guest Attendant Name Role Phone Adriane Higuera MD Primary Care Provider [phone] Allergies No known active allergies Medications acetaminophen (TYLENOL) 325 MG tablet Take 1 tablet by mouth 1 (one) time each day Active allopurinol (ZYLOPRIM) 100 MG tablet Take 1 tablet by mouth 1 (one) time each day Active alprostadil ([place]) 1000 MCG pellet Comments: Patient Notes: 1 [...] Date Type Department Care Team Description 01/09/2025 Treatment [facility] [address] [phone] Eleuterio Rob MD End stage renal disease; Dependence on renal dialysis 01/09/2025 [facility] [place] [id number] [address] Eleuterio Rob MD 12/26/2024 Treatment [facility] [place] [id number] [address] Eleuterio Rob MD End stage renal disease; Dependence on renal dialysis 12/24/2024 Treatment [facility] [address] [phone] Eleuterio Rob MD End stage renal disease; Dependence on renal dialysis 12/12/2024 Treatment [facility] [address] [place] [address] Eleuterio Rob MD End stage renal disease; Dependence on renal dialysis 11/21/2024 Treatment [facility] [address] [address] Eleuterio Rob MD 11/19/2024 Treatment [facility] [address] [address] Eleuterio Rob MD 11/12/2024 Treatment [facility] [address] [address] Eleuterio Rob MD 11/09/2024 Treatment [facility] [address] [address] Eleuterio Rob MD 11/07/2024 Orders Only [facility] [address] [address] Eleuterio Rob MD 10/31/2024 Treatment [facility] [address] [address] Eleuterio Rob MD 10/19/2024 Treatment [facility] [address] [address] Eleuterio Rob MD from Last 3 Months [...] Procedure Name Priority Date/Time Associated Diagnosis Comments [facility] () Routine 01/07/2025 3:00 AM EDT CALCIUM, ADJUSTED W ALBUMIN Routine 01/07/2025 3:00 AM EDT HEMOGLOBIN AND HEMATOCRIT, BLOOD Routine 12/26/2024 3:00 AM EDT [facility] () Routine 12/24/2024 3:00 AM EDT PHOSPHATE [...] from Last 3 Months Results * [facility] (01/07/2025 3:00 AM EDT) Only the most recent of5 resultswithin the time period is included. Lipemia Normal Normal [facility] Icterus Normal Normal [facility] Hemolysis Normal Normal [facility] 01/07/2025 3:00 AM EDT 01/08/2025 1:28 PM EDT Eleuterio Rob MD LAB [id number] SOLICITED RESULTS Final Result [facility] [address] [place] [address] * (ABNORMAL) Calcium, Adjusted w Albumin (01/07/2025 3:00 AM EDT) Calcium 11.1(H) 8.6 - 10.3 mg/dL [facility] Albumin 3.2(L) 3.6 - 5.4 g/dL [facility] Calcium, Adjusted Total 11.7(H) 8.6 - 10.3 mg/dL [facility] 01/07/2025 3:00 AM EDT 01/08/2025 1:28 PM EDT us Eleuterio Rob MD LAB BLOOD ORDERABLES Final Re sult Performing Organization Address [facility] de Phone Number [facility] [address] [place] [address] * (ABNORMAL) Hemoglobin and hematocrit (12/26/2024 3:00 AM EDT) Only the most recent of6 resultswithin the time period is included. Hgb 6.5(L) 13.7 - 17.5 g/dL [facility] Hematocrit 20.8(L) 40.1 - 51.0 % [facility] Hemoglobin x 3 19.5(L) 41.1 - 52.5 g/dL [facility] 12/26/2024 3:00 AM EDT 12/27/2024 1:26 PM EDT Eleuterio Rob MD LAB BLOOD ORDERABLES Final Re sult Performing Organization Address [facility] de Phone Number [facility] [address] [place] [address] * Phosphorus (12/24/2024 3:00 AM EDT) Phosphorus, Serum 3.7 2.5 - 5.0 mg/dL [facility] 12/24/2024 3:00 AM EDT 12/25/2024 12:23 PM EDT Eleuterio Rob MD LAB BLOOD ORDERABLES Final Re sult Performing Organization Address [facility] de Phone Number [facility] [address] [place] [address] * (ABNORMAL) Kt/V Natural Log, URR (12/12/2024 [...] 2:41 PM EST Eleuterio Rob MD LAB [id number] SOLICITED RESULTS Final Result Performing Organization Address [facility] Co de Phone Number [facility] [address] [place] [address] * (ABNORMAL) Calcium Phosphorus Product, Adjusted (12/12/2024 [...] 2:41 PM EST Eleuterio Rob MD LAB [id number] SOLICITED RESULTS Final Result Performing Organization Address [facility]/ZIP Co de Phone Number [facility] [address] [place] [address] * (ABNORMAL) TSAT (12/12/2024 3:00 AM EST) [...] ORDERABLES Final Re sult Performing Organization Address [facility] Co de Phone Number [facility] [address] [place] [address] * (ABNORMAL) CBC and Differential (12/12/2024 3:00 [...] ORDERABLES Final Re sult Performing Organization Address [facility] Co de Phone Number [facility] [address] [place] [address] * ALT (12/12/2024 3:00 AM EST) Only the most recent of3 resultswithin the time period is included. ALT (SGPT) 12 10 - 49 U/L [facility] 12/12/2024 3:00 AM EST 12/13/2024 2:41 PM EST Eleuterio Rob MD LAB BLOOD ORDERABLES Final Re sult Performing Organization Address [facility] de Phone Number [facility] [address] [place] [address] * AST (12/12/2024 3:00 AM EST) Only the most recent of3 resultswithin the time period is included. AST (SGOT) 21 <34 U/L [facility] 12/12/2024 3:00 AM EST 12/13/2024 2:41 PM EST us Eleuterio Rob MD LAB BLOOD ORDERABLES Final Re sult Performing Organization Address [facility] de Phone Number [facility] [address] [place] [address] * (ABNORMAL) Protein, total (12/12/2024 3:00 AM EST) Only the most recent of3 resultswithin the time period is included. Total Protein 6.0(L) 6.4 - 8.9 g/dL [facility] 12/12/2024 3:00 AM EST 12/13/2024 2:41 PM EST us Eleuterio Rob MD LAB BLOOD ORDERABLES Final Re sult Performing Organization Address [facility] Co de Phone Number [facility] [address] [place] [address] * Alkaline phosphatase (12/12/2024 3:00 AM EST) Only the most recent of3 resultswithin the time period is included. Alkaline Phosphatase 79 46 - 116 U/L [facility] 12/12/2024 3:00 AM EST 12/13/2024 2:41 PM EST Eleuterio Rob MD LAB BLOOD ORDERABLES Final Re sult Performing Organization Address [facility] de Phone Number [facility] [address] [place] [address] * (ABNORMAL) Magnesium (12/12/2024 3:00 AM EST) Only the most recent of3 resultswithin the time period is included. Magnesium 1.8(L) 1.9 - 2.7 mg/dL [facility] 12/12/2024 3:00 AM EST 12/13/2024 2:41 PM EST Eleuterio Rob MD LAB BLOOD ORDERABLES Final Re sult Performing Organization Address [facility] de Phone Number [facility] [address] [place] [address] * (ABNORMAL) Lactate dehydrogenase (12/12/2024 3:00 AM EST) Only the most recent of3 resultswithin the time period is included. LDH 370(H) 120 - 246 U/L [facility] 12/12/2024 3:00 AM EST 12/13/2024 2:41 PM EST Eleuterio Rob MD LAB BLOOD ORDERABLES Final Re sult Performing Organization Address [facility] de Phone Number [facility] [address] [place] [address] * (ABNORMAL) Glucose, random (12/12/2024 3:00 AM EST) Only the most recent of3 resultswithin the time period is included. Glucose 186(H) 74 - 109 mg/dL [facility] 12/12/2024 3:00 AM EST 12/13/2024 2:41 PM EST us Eleuterio Rob MD LAB BLOOD ORDERABLES Final Re sult Performing Organization Address [facility] de Phone Number [facility] [address] [place] [address] * (ABNORMAL) Ferritin (12/12/2024 3:00 AM EST) Only the most recent of3 resultswithin the time period is included. Ferritin 2,275(H) 22 - 322 ng/mL [facility] 12/12/2024 3:00 AM EST 12/13/2024 2:41 PM EST Eleuterio Rob MD LAB BLOOD ORDERABLES Final Re sult Performing Organization Address [facility] de Phone Number [facility] [address] [place] [address] * (ABNORMAL) Creatinine, serum (12/12/2024 3:00 AM EST) Only the most recent of3 resultswithin the time period is included. Creatinine 6.75(H) 0.70 - 1.30 mg/dL [facility] 12/12/2024 3:00 AM EST 12/13/2024 2:41 PM EST Eleuterio Rob MD LAB BLOOD ORDERABLES Final Re sult Performing Organization Address [facility] de Phone Number [facility] [address] [place] [address] * (ABNORMAL) Bilirubin, total (12/12/2024 3:00 AM EST) Only the most recent of3 resultswithin the time period is included. Total Bilirubin 0.2(L) 0.3 - 1.2 mg/dL [facility] 12/12/2024 3:00 AM EST 12/13/2024 2:41 PM EST us Eleuterio Rob MD LAB BLOOD ORDERABLES Final Re sult Performing Organization Address [facility] de Phone Number [facility] [address] [place] [address] * Electrolyte panel (12/12/2024 3:00 AM EST) [...] ORDERABLES Final Re sult Performing Organization Address [facility] de Phone Number [facility] [address] [place] [address] * PTH, Intact (11/14/2024 3:00 AM EST) [...] ORDERABLES Final Re sult Performing Organization Address [facility] de Phone Number [facility] [address] [place] [address] * Confirmation Test HCV (10/17/2024 3:00 AM EST) Hep C Ab Confirmation Not needed [facility] 10/17/2024 3:00 AM EST 10/18/2024 12:41 PM EST us Eleuterio Rob MD LAB BLOOD ORDERABLES Final Re sult Performing Organization Address [facility] de Phone Number [facility] [address] [place] [address] * HEPATITIS C ABS W/REFLEX RNA DETECTR (10/17/2024 3:00 AM EST) Hep C Virus Ab Non-Reacti ve Non-Reacti ve [facility] 10/17/2024 3:00 AM EST 10/18/2024 1:16 PM EST Eleuterio Rob MD LAB [id number] SOLICITED RESULTS Final Result Performing Organization Address [facility] de Phone Number [facility] [address] [address] * Aluminum level (10/17/2024 3:00 AM EST) Pathologist [facility] Aluminum 4 1 - 20 ug/L [facility] 10/17/2024 3:00 AM EST 10/18/2024 12:56 PM EST Eleuterio Rob MD LAB BLOOD ORDERABLES Final Re sult Performing Organization Address [facility] de Phone Number [facility] [address] [address] * Vitamin D 25 Hydroxy (10/17/2024 3:00 AM EST) Pathologist [facility] Vitamin D, 25-Hydroxy 44 30 - 100 ng/mL [facility] Comment: Status ? Adult ?? Pediatric Deficient: ? <20 ? <15 Insufficient: ??20-29 ?? 15-19 Sufficient: ?30-100 ??20-100 10/17/2024 3:00 AM EST 10/18/2024 1:16 PM EST Eleuterio Rob MD LAB BLOOD ORDERABLES Final Re sult Performing Organization Address [facility] de Phone Number [facility] [address] [address] * Hepatitis B Surface Antibody (10/17/2024 3:00 AM EST) Hep B Surface Antibody 13 mIU/mL [facility] Comment: Interpretation: <10: No Immunity >=10: Probable Immunity 10/17/2024 3:00 AM EST 10/18/2024 1:16 PM EST Eleuterio Rob MD LAB BLOOD ORDERABLES Final Re sult Performing Organization Address [facility] de Phone Number [facility] [address] [place] [address] * Uric Acid (10/17/2024 3:00 AM EST) Uric Acid 4.5 4.4 - 7.6 mg/dL [facility] 10/17/2024 3:00 AM EST 10/18/2024 1:16 PM EST Eleuterio Rob MD LAB BLOOD ORDERABLES Final Re sult Performing Organization Address [facility] de Phone Number [facility] [address] [place] [address] * Hemoglobin A1c (10/17/2024 3:00 AM EST) [...] Final Re sult [facility] [address] [place] [address] * (ABNORMAL) Lipid panel (10/17/2024 3:00 AM [...] Final Re sult [facility] [address] [place] [address] from Last 3 Months Insurance [facility] ([id number]) [facility] ([id number]) Care Teams Guest Attendant Relationship Specialty Start Date End Date Adriane Higuera MD [address] [place] [address] PCP - General Family Medicine 07/17/24
--- OUTSIDE RECORDS SUMMARY | 2025-01-11 10:25 | XMS_ITS | Encounter Summary ---
Author Organization [facility] Address [address] [address] Phone Care Team Providers Care Make Ready Mechanic Name Role Phone Adriane Higuera MD Primary Care Provider [phone] Encounter Details Date Type Department Care Team (Late st Contact Info) Description 01/09/2025 Treatment [facility] P. [address] [address] Elder Alfaro MD [address] [address] End stage renal disease; [...] Dialysis Note - Elder Alfaro MD - 01/09/2025 12:00 AM EDT Patient: Bi Davey : 1940 Note Type: Dialysis Rounds-Comp Service Date: 01/09/2025 This patient was personally seen for a complete visit as part of routine monthly dialysis care for end stage renal disease. Attending Forestry Aid: ELDER ALFARO Dialysis Location: [facility] Schedule: Shift: 2 OVERVIEW Patient is stable. ADEQUACY ASSESSMENT Kt/V, Natural Log 1.51 (12/12/24) 1.35 (11/14/24) 1.67 (10/17/24) UREA REDUCTION RATIO (%) 72 (12/12/24) 70 (11/14/24) 77 (10/17/24) BUN 39 (12/12/24) 54 (11/14/24) 52 (10/17/24) BUN Post Dialysis 11 (12/12/24) 16 (11/14/24) 12 (10/17/24) Creatinine 6.75 (12/12/24) 6.45 (11/14/24) 6.32 (10/17/24) Bicarbonate (CO2) 27 (12/12/24) 24 (11/14/24) 26 (10/17/24) Sodium 143 (12/12/24) 140 (11/14/24) 139 (10/17/24) ANEMIA ASSESSMENT Hgb 6.5 (12/26/24) 8.7 (12/12/24) 10.1 (11/28/24) Iron Saturation (TSat) 31 (12/12/24) 17 (11/14/24) 17 (10/17/24) Ferritin 2,275 (12/12/24) 1,543 (11/14/24) 826 (10/17/24) Iron 44 (12/12/24) 24 (11/14/24) 27 (10/17/24) TIBC 140 (12/12/24) 141 (11/14/24) 162 (10/17/24) MCV 92.8 (12/12/24) 91.3 (11/14/24) 88.2 (10/17/24) Platelets 105 (12/12/24) 91 (11/14/24) 103 (10/17/24) BMM ASSESSMENT Calcium, Adjusted Total 11.7 01/07/25 11.2 12/12/24 9.9 11/14/24 Calcium 11.1 01/07/25 10.6 12/12/24 9.4 11/14/24 Phosphorus, Serum 3.7 12/24/24 3.7 12/12/24 4.2 11/14/24 Ca*PO4 39.2 12/12/24 39.5 11/14/24 44.1 10/17/24 PTH, Intact 274 11/14/24 249 10/17/24 192 09/12/24 Vitamin D, 25-Hydroxy 44 10/17/24 Magnesium 1.8 12/12/24 1.6 11/14/24 1.8 10/17/24 Alkaline Phosphatase 79 12/12/24 78 11/14/24 72 10/17/24 Aluminum 4 10/17/24 NUTRITION ASSESSMENT Albumin 3.2 01/07/25 3.2 12/12/24 3.4 11/14/24 Potassium 4.5 12/12/24 5.0 11/14/24 4.8 10/17/24 Hemoglobin A1C 4.0 10/17/24 ADDITIONAL LABS White Blood Cells 4.8 (12/12/24) 4.1 (11/14/24) 5.2 (10/17/24) Cholesterol 152 (10/17/24) HDL 43 (10/17/24) LDL-Calc 92 (10/17/24) Triglycerides 85 (10/17/24) Hep B Surface Antibody 13 (10/17/24) 20 (09/24/24) Uric Acid 4.5 (10/17/24) ADDITIONAL COMMENT COMMENTS: 11/21/24 stable 12/12/24 stable 12/24/24 c/o nausea-- compazine guven 12/26/24 liw bps and gi uoset 01/09/25 poor appetite, has go f/u to see about options 10/09/24 stable 10/12/23 stable 10/19/24 stable 06/13/24 [...] stable Signed by: ELDER ALFARO MD on 01/09/2025 at 09:13:55 PM Transcribed by: ELDER ALFARO MD on 01/09/2025 at 09:13:55 PM documented in this encounter Plan of Treatment Not on file documented as of this encounter Visit Diagnoses Diagnosis End stage renal disease Dependence on renal dialysis documented in this encounter Care Teams Make Ready Mechanic Relationship Specialty Start Date End Date Adriane Higuera MD [address] [place] [address] PCP - General Family Medicine 07/17/24 documented as of this encounter
--- OUTSIDE RECORDS SUMMARY | 2025-01-11 10:25 | XMS_ITS | Encounter Summary ---
Author Organization [facility] Address [address] [address] Phone Care Team Providers Care Credit Office Manager Name Role Phone Adriane Higuera MD Primary Care Provider [phone] Encounter Details Date Type Department Care Team (Late st Contact Info) Description 01/09/2025 TCM in Dialysis Clinic [facility] P. [address] [address] Elder Alfaro MD [address] [address] Social History Tobacco Use Types [...] on file documented as of this encounter Progress Notes * Elder Alfaro MD - 01/09/2025 12:00 AM EDT Patient: Bi Davey : 1940 Note Type: Dialysis TCM Service Date: 01/09/2025 The patient was seen for a zbbv-jg-[id number] visit as part of Transitional Care Management services. Attending Switchgear Repairer: ELDER ALFARO Dialysis Location: [facility] Schedule: Shift: 2 INTERACTIVE CONTACT This hpla-cg-mycq visit occurred within 2 business days of the patient?s discharge. HOSPITALIZATION SUMMARY Patient transitioned from: Hospital Patient transitioned to: Home Admit Date: 12/27/2024 Discharge Date: 01/08/2025 Reason for admission: GIB question UGI tumor HOME MEDICATIONS Discharge med list reviewed - changes reconciled and discussed with patient. PHYSICAL EXAM Exam not performed. DIALYSIS PRESCRIPTION Dry weight during admission reviewed - no change to EDW. CARE COORDINATION Post-discharge follow-up appointments reviewed with the patient. IMPRESSION & PLAN COMMENTS: f/u GI F/U card VISIT DIAGNOSES CPT Code 93523 - High complexity, seen within 7 days of discharge. N18.6 End stage renal disease Signed by: ELDER ALFARO MD on 01/09/2025 at 09:12:40 PM Transcribed by: ELDER ALFARO MD on 01/09/2025 at 09:12:40 PM documented in this encounter Plan of Treatment Not on file documented as of this encounter Visit Diagnoses Not on filedocumented in this encounter Care Teams Credit Office Manager Relationship Specialty Start Date End Date Adriane Higuera MD [address] [place] [address] PCP - General Family Medicine 07/17/24 documented as of this encounter
--- OUTSIDE RECORDS SUMMARY | 2025-01-11 10:26 | XMS_ITS | Encounter Summary ---
Author Organization [employer] Address [address] [place] [address] Care Team Providers Care Senior Account Manager Name Role Phone Adriane Higuera MD Primary Care Provider [phone] Encounter Details Date Type Department Care Team [...] 2:30 PM EDT Office Visit [facility] [address] [place] [address] [facility] [address] [place] [address] documented as of this encounter Visit Diagnoses Not on filedocumented in this encounter Additional Health Concerns Assessment Noted Time PHQ-9 Depression Total Score: 0 11/13/19 1:31 PM EST documented as of this encounter Care Teams Senior Account Manager Relationship Specialty Start Date End Date Adriane Higuera MD [address] [place] [address] PCP - General Family Medicine 06/14/13 [facility] 01/07/25 documented as of this encounter
--- OUTSIDE RECORDS SUMMARY | 2025-01-11 10:26 | XMS_ITS | Encounter Summary ---
Author Organization [facility] Address [address] [place] [address] Care Team Providers Care Intertype Operator Name Role Phone Adriane Higuera MD Primary Care Provider [phone] Reason for Referral * Consultation (Urgent) - Authorized Specialty Diagnoses / Procedures Referred By Arminda bailey Referred To Contact Pulmonary Disease Diagnoses Wheezing Subacute cough Adriane Higuera MD [address] [place] [address] Phone: tel: fax: [facility] Pulmonary [address] 1[address] Floor [place], [place] Phone: tel: fax: Referral ID Status Reason Start Date Expiration Date Visits Requested Visits Authorized [id number] Authorized Specialty Services Required 01/08/2025 01/08/2026 1 1 * Consultation (STAT) - Authorized Specialty Diagnoses / Procedures Referred By Contbrit t Referred To Contact Hematology and Oncology Diagnoses Duodenal mass Neuroendocrine tumor Adriane Higuera MD [address] [place] [address] Phone: tel: fax: [facility] Referral ID Status Reason Start Date Expiration Date Visits Requested Visits Authorized [id number] Authorized Specialty Services Required 01/08/2025 01/08/2026 1 1 * Consultation (STAT) - Authorized Specialty Diagnoses / Procedures Referred By Contac t Referred To Contact Gastroenterology Diagnoses Duodenal mass Gastrointestinal hemorrhage, unspecified gastrointestinal hemorrhage type Esophageal dysphagia [place] [address] Phone: tel: fax: [facility] Referral ID Status Reason Start Date Expiration Date Visits Requested Visits Authorized [id number] Authorized Specialty Services Required 01/08/2025 01/08/2026 1 1 Reason for Visit * Reason Comments Hospital follow up Encounter Details Date Type Department Care Team (Latest Contact Info) Description 01/08/2025 9:30 AM EDT Office Visit [facility] [address] [place], [place] [phone] Adriane Higuera MD [address] [place] [id number] Duodenal mass (Primary Dx); Aneurysm of descending [...] Ischemic heart disease; Subacute cough; Neuroendocrine tumor Social History Tobacco Use Types Packs/Day Years [...] Progress Notes * Adriane Higuera MD - 01/08/2025 9:30 AM EDT Images from the original note were not included. Subjective Bi Hall is a 84 y.o. male who has ESRD on HD, CAD s/p CABG, thoracic aorta aneurysm, and Hx CVA, and patient presents for hospital discharge follow-up. Background: Our last encounter was 11/13/2024. He was coughing, but was taking antibiotic which was prescribed bydialysis physician. Interval history: [facility] (12/04/24-12/07/24) [...] after that and sucralfate for 2 weeks. Seen for hospital discharge follow-up on 12/13/24. He complained of bruise on his hip. MACHINE GUIDE BASE WINDER and his son reported his cognition has not been the same. CT was ordered. Referred to GI for outpatient followup. [facility] (12/26/24-01/05/25) Sent from dialysis due to symptomatic hypotension. Patient reported nausea, vomiting, hematemesis /hemoptysis, and melena. In ED, he was found to be hypotensive and anemic (lower than his already-low baseline, BP 83/50 and H/H 5.9/18). Otherwise, vital sign and lab were at his baseline. Lactic acid WNL. Troponin WNL. Tested negative for flu, COVID, RSV. CXR showed left lobe infiltrate. EKG demonstrated sinus rhythm with first-degree AV block but no evidence of significant ischemic changes. He was given transfusion, fluid, midodrine, azithromycin, cefepime, and pantoprazole. Admitted for further evaluation of anemia due to acute blood loss, likely UGIB. Patient underwent EGD on 12/28/24 and was found to have ulcerated duodenal mass. There seemed to be a partial gastric outlet obstruction; therefore, upper GI series was recommended. UGI on 01/02/25 did not show obstruction and patient was tolerating solid food intake. Plan for colonoscopy was cancelled due to poor prep and patient's signi ficant comorbidity. 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 CTA on 12/30/24 showed following: Thoracic aneurysmal dilatation begins just distal to the takeoff of the left common carotid artery.Largest transverse measurement is 6.3 cm. Subtle short- segment dissection is identified at the beginning of the aneurysms. There is dense vascular calcification. Aneurysmal dilatation extends to the far caudad field of view involving the abdominal aorta measuring up to 4.4 cm in transverse measurement. Aortic valve prostheses is in place. Vascular stent is seen within the left subcutaneous subclavian and left brachiocephalic vein. This is stent appears to be occluded. Patient has undergone prior coronary artery bypass grafting. There is dense calcification of the patient's [place] coronary arteries. Borderline arias chamber cardiac enlargement. Small bilateral pleural effusions. Dense consolidation within the left upper lobe and lingula with less pronounced consolidation within the remainder of the lungs. No pneumothorax. Subcentimeter mediastinal and hilar lymph nodes. No free fluid or free air within the upper abdomen. Densely calcified gallstones within the upper abdomen with pericholecystic induration. [facility] vascular surgery was consulted, and they agreed that patient does not require an urgent intervention and recommended an outpatient follow up with his vascular specialist (Sobeida, although documented as [place]). He completed course of cefepime and azithromycin for multifocal pneumonia. He continued to receive hemodialysis during the hospitalization. Because of anemia due to GIB, aspirin was held. He was recommended to follow up with oncologist, and GI. Today: Here with his son, Gian, and MACHINE GUIDE BASE WINDER, Nhung. Pt's son states the Pt has had a consistent productive cough for a few months. He has had cough forlast several months. During last hospitalization, he received antibiotic. Since the discharge, his cough has become more productive. His cough is especially frequent at night to where he can???t sleep. No hemoptysis or hematemesis. They called [facility] GI and Heme/Onc offices to schedule follow-up appointment, but they were told that patient needs a referral from PCP. Pt???s appetite is getting better and his son confirms he takes omeprazole twice a day. He is taking sucralfate 4 times per day. He still has sensation that food is not passing through. Therefore, hehas to slow down eating, especially with solid foods. He no longer has blood in his stool. His son thinks that he stopped aspirin. Pt's son notes his memory has been fading, at times forgetting if he took his medication or not. After the visit, I had a discussion with his son about his condition. We discussed about his prognosis and wishes. We discussed about the importance of thinking what is the most important for patientand what will improve his quality of life. Patient has been in and out of the hospital for last fewmonths. He could not eat what he likes while in the hospital. Gian is aware that he had survived many life-threatening medical emergency and conditions, and has been prepared. His son stated that pt is not aware of diagnosis of neuroendocrine tumor because he is afraid that patient might think that he is going to from it. Pt does not use a nebulizer at home, but he was using it in the hospital and it seemed to help his breathing. Review of Systems Constitutional: Negative for activity change, appetite change and fever. Respiratory: Positive for cough. Negative for shortness of breath. Cardiovascular: Negative for chest pain. Objective Vitals: 01/08/25 0945 BP: (!) 156/75 BP Location: Left arm Patient Position: Sitting BP Cuff Size: Adult Pulse: 81 Resp: 20 Temp: 97.7 ??F (36.5 ??C) TempSrc: Oral SpO2: 97% Weight: 158 lb 6.4 oz (71.8 kg) Physical Exam Constitutional: General: He is [...] Psychiatric: Mood and Affect: Mood normal. Results: Assessment/Plan Problem List Items Addressed This Visit Aneurysm of descending aorta (CMS/HCC) -Pt had aneurysm of ascending aorta, aortic arch, and descending aorta - s/p repair in February 2014 -Followed by [facility] vascular service, last seen by Dr. [...] aneurysmal dilatation 6.3 cm, extending to abdominal aorta4.4 cm. Occluded stent between left subclavian and brachiocephalic. -Continue risk factor management Aneurysm of thoracic aorta ([facility]/HCC) -Pt had aneurysm of ascending aorta, aortic arch, and descending aorta - s/p repair in February 2014 -Followed by [facility] vascular service, last seen by Dr. [...] 6.3 cm. -Continue risk factor management. -Called [facility] vascular clinic today, and requested a follow up appointment. Faxed CTA report and most recent discharge summary to [facility] [phone]. Diabetes mellitus, type 2 ([facility]) - HgbA1C is 5.7% on 12/14/24, Goal < 8% due to his age - No longer on medication. Trying to control with diet currently. Previously on metformin and glipizide. - Consider GLP-1 agonist or SGLT-2 inhibitor if A1C > 8% - Last eye exam: [facility] - Last comprehensive foot exam: 06/07/23, high-risk - Last microalbumin test: not indicated since pt has end stage renal dx. worsening proteinuria / nephropathy - Last lipid profile: 09/18/24 - ASA - discontinued - IZ - up to date End stage renal disease (CMS/HCC) - Continue hemodialysis(MWF) - Continue to follow with Nephrology Essential hypertension - Goal BP < 130/80 per ACC/AHA guideline. - Elevated BP today, but recently hypotensive - Continue working on life style modifications. - Previously on metoprolol succinate 100 mg which was discontinued by magnetic resonance technologist - Previously on ACEI, but discontinued lisinopril [...] in 2020 - Continue checking home BP Ischemic heart disease - Health Promotion [facility], last seen on 09/27/24 - Optimize risk factor management and secondary prevention Dysphagia -Followed by [facility] GI, and recently seen during the hospitalization [...] GI - Continue aspiration caution at home Relevant Orders Referral to Gastroenterology GI bleed - hospitalized in Aug 2024, Nov 2024, and December 2024 - during most recent hospitalization, EGD showed ulcerated duodenal mass. - aspirin was discontinued - patient received total 4 units of PRBC - pantoprazole was switched to omeprazole 40 mg bid and sucralfate 1g 4 times per day - refer to GI for follow up Relevant Orders Referral to Gastroenterology Duodenal mass - Primary - ulcerated - biopsy pathology report showed neuroendocrine cells, well-differentiated - refer to GI and Onc Relevant Orders Referral to Gastroenterology Referral to Hematology / Oncology Anemia - acute on chronic anemia due to GIB - received 4 units PRBC in December 2024 - follow up with hematology and dialysis - no longer on aspirin Subacute cough - multifactorial: pulm; GI; cardiovascular; allergy - recently treated for pneumonia, multi-lobar. - check CXR - refer to [facility] - Rx nebulizer - optimize treatment for duodenal mass and esophageal stricture - Rx doxycycline and prednisone Relevant Orders Referral to Pulmonology Other Visit Diagnoses Abnormal lung sounds Relevant Orders XR Chest 2 Views (Completed) Pneumonia of both lungs due to infectious organism, unspecified part of lung Relevant Orders XR Chest 2 Views (Completed) Wheezing Relevant Medications ipratropium-albuterol (Duo-Neb) 0.5-2.5 mg/3 mL nebulizer solution Other Relevant Orders Referral to Pulmonology Neuroendocrine tumor Relevant Orders Referral to Hematology / Oncology Allergies Allergen Reactions Alejandro Inhibitors Other reaction(s): Recurrent hyperkalemia / contraindication Nsaids Other reaction(s): contraindication Current Outpatient Medications Medication Instructions acetaminophen (Tylenol) 500 MG tablet Take by mouth. 1 tablet by mouth daily as needed for pain allopurinol (ZYLOPRIM) 100 mg, Oral, Every morning aspirin (Aspirin Adult Low Strength) 81 MG EC tablet TAKE 1 TABLET BY MOUTH EVERY MORNING atorvastatin (Lipitor) 80 MG tablet TAKE 1 TABLET BY MOUTH AT BEDTIME Blood Glucose Monitoring Suppl (FreeStyle Lite) w/Device kit 1 each, Does not apply, 2 times daily Blood Pressure kit 1 each, Does not apply, 2 times daily cholecalciferol (Vitamin D High Potency) 25 MCG (1000 UT) capsule TAKE 1 CAPSULE BY MOUTH EVERY MORNING cyanocobalamin (Vitamin B-12) 1000 MCG tablet TAKE 1 TABLET BY MOUTH EVERY MORNING doxycycline (VIBRAMYCIN) 100 mg, Oral, 2 times daily, Take with at least 8 ounces (large glass) of water, do not lie down for 30 minutes after folic acid (Folvite) 1 MG tablet TAKE 1 TABLET BY MOUTH EVERY MORNING FREESTYLE LITE test strip Use as instructed guaiFENesin (HUMIBID 3) 400 mg, Oral, Every 6 hours PRN ipratropium (Atrovent) 0.03 % nasal spray Use 1 spray to each nostril once daily ipratropium-albuterol (Duo-Neb) 0.5-2.5 mg/3 mL nebulizer solution 3 mL, Nebulization, Every 6 hours RT Lancets Ultra Thin 30G misc Use BID as needed for BG check levothyroxine (Synthroid, Levoxyl) 50 MCG tablet TAKE 1 TABLET BY MOUTH EVERY MORNING midodrine (Proamatine) 5 MG tablet TAKE 1 TABLET BY MOUTH THREE TIMES A WEEK MID TREATMENT DIRECTED Arscmaxb-Kwalqqsbg-DI 1 % solution INSTILL 5 DROPS INTO THE LEFT EAR DAILY omeprazole (PriLOSEC) [address] capsule 1 capsule, 2 times daily predniSONE (DELTASONE) 20 mg, Oral, Daily Restasis MultiDose 0.05 % ophthalmic emulsion 1 drop, 2 times daily sucralfate (CARAFATE) 1 g, 4 times daily before meals and nightly Follow-up: 3 weeks or sooner if any problem arises. Scribe Attestation: ISalome, am serving as a scribe to document services personally performed by Adriane Higuera MD, based on the patient's response to questions by provider and provides statements to me. documented in this encounter Miscellaneous Notes * Assessment & Plan Note - Adriane Higuera MD - 01/08/2025 6:53 PM EDTAssociated Problem(s): Subacute cough - multifactorial: pulm; GI; cardiovascular; allergy - recently treated for pneumonia, multi-lobar. - check CXR - refer to [facility] - Rx nebulizer - optimize treatment for duodenal mass and esophageal stricture - Rx doxycycline and prednisone * Assessment & Plan Note - Adriane Higuera MD - 01/08/2025 6:50 PM EDTAssociated Problem(s): Anemia - acute on chronic anemia due to GIB - received 4 units PRBC in December 2024 - follow up with hematology and dialysis - no longer on aspirin * Assessment & Plan Note - Adriane Higuera MD - 01/08/2025 6:48 PM EDTAssociated Problem(s): Duodenal mass - ulcerated - biopsy pathology report showed neuroendocrine cells, well-differentiated - refer to GI and Onc * Assessment & Plan Note - Adriane Higuera MD - 01/08/2025 6:46 PM EDTAssociated Problem(s): Dysphagia -Followed by [facility] GI, and recently seen during the hospitalization [...] GI - Continue aspiration caution at home * Assessment & Plan Note - Adriane Higuera MD - 01/08/2025 5:31 PM EDTAssociated Problem(s): Ischemic heart disease - Health Promotion Officer [facility], last seen on 09/27/24 - Optimize risk factor management and secondary prevention * Assessment & Plan Note - Adriane Higuera MD - 01/08/2025 5:29 PM EDTAssociated Problem(s): Essential hypertension - Goal BP < 130/80 per ACC/AHA guideline. - Elevated BP today, but recently hypotensive - Continue working on life style modifications. - Previously on metoprolol succinate 100 mg which was discontinued by magnetic resonance technologist - Previously on ACEI, but discontinued lisinopril [...] in 2020 - Continue checking home BP * Assessment & Plan Note - Adriane Higuera MD - 01/08/2025 5:27 PM EDTAssociated Problem(s): Esophageal dysphagia (Deleted) -Previously followed by GI, and recently seen during the hospitalization -Previous workup has been negative for aspiration -Patient has Barium Swallow in 02/2023 showed esophageal stricture and abnormal esophageal motility. - s/p EGD with dilation 17 mm on 06/28/23 - s/p EGD on 12/28/24 ulcerated duodenal mass, pathology report carcinoid tumor - s/p UGI on 01/02/25 showed no significant obstruction - Patient is still feeling difficulty in food passage and has been vomiting / coughing frequently - continue omeprazole and sucralfate as prescribed - refer to GI - Continue aspiration caution at home * Assessment & Plan Note - Salome Ardon MA - 01/08/2025 11:10 AM EDT Associated Problem(s): Diabetes mellitus, type 2 (CMS/HCC) - HgbA1C is 5.7% on 12/14/24, Goal < 8% due to his age - No longer on medication. Trying to control with diet currently. Previously on metformin and glipizide. - Consider GLP-1 agonist or SGLT-2 inhibitor if A1C > 8% - Last eye exam: [facility] - Last comprehensive foot exam: 06/07/23, high-risk - Last microalbumin test: not indicated since pt has end stage renal dx. worsening proteinuria / nephropathy - Last lipid profile: 09/18/24 - ASA - discontinued - IZ - up to date * Assessment & Plan Note - Salome Ardon MA - 01/08/2025 11:09 AM EDT Associated Problem(s): End stage renal disease (CMS/HCC) - Continue hemodialysis(MWF) - Continue to follow with Nephrology * Assessment & Plan Note - Salome Ardon MA - 01/08/2025 11:09 AM EDT Associated Problem(s): GI bleed - hospitalized in Aug 2024, Nov 2024, and December 2024 - during most recent hospitalization, EGD showed ulcerated duodenal mass. - aspirin was discontinued - patient received total 4 units of PRBC - pantoprazole was switched to omeprazole 40 mg bid and sucralfate 1g 4 times per day - refer to GI for follow up * Assessment & Plan Note - Salome Ardon MA - 01/08/2025 11:09 AM EDT Associated Problem(s): Aneurysm of thoracic aorta (CMS/HCC) -Pt had aneurysm of ascending aorta, aortic arch, and descending aorta - s/p repair in February 2014 -Followed by [facility] vascular service, last seen by Dr. [...] 6.3 cm. -Continue risk factor management. -Called [facility] vascular clinic today, and requested a follow up appointment. Faxed CTA report and most recent discharge summary to [facility] [phone]. * Assessment & Plan Note - Salome Ardon MA - 01/08/2025 11:09 AM EDT Associated Problem(s): Aneurysm of descending aorta (CMS/HCC) -Pt had aneurysm of ascending aorta, aortic arch, and descending aorta - s/p repair in February 2014 -Followed by [facility] vascular service, last seen by Dr. [...] aneurysmal dilatation 6.3 cm, extending to abdominal aorta4.4 cm. Occluded stent between left subclavian and brachiocephalic. -Continue risk factor management documented in this encounter Plan of Treatment Upcoming Encounters Date Type Department Care Team (Late st Contact Info) Description 01/24/2025 2:30 PM EDT Office Visit [address] [address] My [facility] ANP [address] [facility] [place] [address] Scheduled Referrals Name Type Priority Associated Diagnoses Orde r Schedule Referral to Gastroenterology Outpatient Referral STAT Duodenal mass Gastrointestinal hemorrhage, unspecified gastrointestinal hemorrhage type Esophageal dysphagia Expected: 01/08/2025 (Approximate), Expires: 01/08/2026 Referral to Hematology / Oncology Outpatient Referral STAT Duodenal mass Neuroendocrine tumor Expected: 01/08/2025 (Approximate), Expires: 01/08/2026 Referral to Pulmonology Outpatient Referral Urgent Wheezing Subacute cough Expected: 01/08/2025 (Approximate), Expires: 01/08/2026 documented as of this encounter Procedures Procedure [...] AM EDT Narrative 01/08/2025 11:24 AM EDT ?[facility] ?[address] ?[place] [address] ?XRay Report ? Signed ? Patient: Petar Rafael,Silfredys ?MR# ?? : [id number] ? : 1940 ?Acct:[id number] ? Age/Sex: 84 / M ?ADM Date: 01/08/25 ? Loc: HO.HHCX ? Attending Dr: Adriane Higuera MD ? Ordering Physician: Adriane Higuera MD ?? Date of Service: 01/08/25 ?? Procedure(s): XR chest 2V ?? Accession Number(s): [id number] ? cc: Adriane Higuera MD ? EXAMINATION: [...] has largely resolved. ? Electronically signed by: ??Theodoer Hassan MD ??01/08/2025 11:20 AM EDT ? Dictated By: ?Theodore Hassan MD ? Signed By: ?<Electronically signed by Theodore Hassan MD in OV> ?01/08/25 1120 ? DD/ 1053 ? TD/TT: 01/08/25 1112 ? Fish Fryer: ? Procedure Note Ciarandonaldleilajaden, Image - 01/08/[address] [address] XRay Report Signed Patient: Jori Forrest# : [id number] : 9Acct:[id number] Age/Sex: 84 / MADM Date: 01/08/25 Loc: HO.HHCX Attending Dr: Adriane Higuera MD Ordering Physician: Adriane Higuera MD Date of Service: 01/08/25 Procedure(s): XR chest 2V Accession Number(s): [id number] cc: Adriane Higuera MD EXAMINATION: XR CHEST [...] 01/08/25 1120 DD/ 1053 TD/TT: 01/08/25 1112 Fish Fryer: Adriane Higuera MD IMG XR PROCEDURES Final Result documented in this encounter Visit Diagnoses Diagnosis Duodenal mass- Primary 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 (CMS/HCC) Gastrointestinal hemorrhage, unspecified gastrointestinal hemorrhage type End stage renal disease (CMS/HCC) End stage renal disease Anemia, unspecified type Type 2 diabetes mellitus with chronic kidney disease on chronic dialysis, without long-term current use of insulin (CMS/HCC) Abnormal lung sounds Abnormal chest sounds Pneumonia of both lungs due to infectious organism, unspecified part of lung Wheezing Essential hypertension Unspecified essential hypertension Esophageal dysphagia Dysphagia, pharyngoesophageal phase Ischemic heart disease Other specified forms of chronic ischemic heart disease Subacute cough 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
--- OUTSIDE RECORDS SUMMARY | 2025-01-11 10:26 | XMS_ITS | Encounter Summary ---
Author Organization [employer] Address [address] [place] [address] Care Team Providers Care Crating And Moving Estimator Name Role Phone Adriane Higuera MD Primary Care Provider [phone] Encounter Details Date Type Department Care Team (Late st Contact Info) Description 09/24/2022 Orders Only [facility] [address] [place], [place] [phone] Salome Baker LPN Social History Tobacco Use [...] Description 01/24/2025 2:30 PM EDT Office Visit [facility] [address] [place] [address] My Hawkins ANP [address] [place] [address] documented as of this encounter Visit Diagnoses Not on filedocumented in this encounter Care Teams Crating And Moving Estimator Relationship Specialty Start Date End Date Adriane Higuera MD [address] [place] [address] PCP - General Family Medicine 06/14/13 [facility] 01/07/25 documented as of this encounter
--- OUTSIDE RECORDS SUMMARY | 2025-01-11 10:26 | XMS_ITS | Encounter Summary ---
Author Organization [employer] Address [address] [facility] 7t [place] [address] Care Team Providers Care Chassis Driver Name Role Phone Adriane Higuera MD Primary Care Provider [phone] Reason for Visit * Reason Onset Date Comments Care Coordination 01/09/2025 Encounter Details Date Type Department Care Team ([facility] st Contact Info) Description 01/09/2025 Telephone [facility] MEDICINE [address] [place], [place] [phone] Adriane Higuera MD [address] [place], [place] [phone] Care Coordination Social History Tobacco Use Types Packs/Day Years [...] encounter Miscellaneous Notes * Telephone Encounter - Esthela Yeboah - 01/09/2025 10:25 AM EDT Tc from Casandra with [facility] calling to inform pt son agreed with starting palliative care but would haveto be with a company who is able to do everything, such as adjust medication. Also inform pt has GI appt 01/11/25 and vesicular appt 02/05/25 and will be going out to pt home next week. Any further question please call to clarify [phone]. * Telephone Encounter - Zo Acharya RN - 01/09/2025 10:18 AM EDT Per encounter from 01/09/25, Dr Higuera already outreached to [employer] healthcare insurance sales agent Casandra. Will task to status check palliative care situation in a few days. * Telephone Encounter - Zo Acharya RN - 01/09/2025 10:14 AM EDT ----- Message from Adriane Higuera MD sent at 01/08/2025 5:21 PM EDT ----- Please call patient's [employer] healthcare insurance sales agent and ask if their palliative care team can come to assessthe patient. Thank you documented in this encounter Plan of Treatment Upcoming Encounters Date Type Department Care Team (Late st Contact Info) Description 01/24/2025 2:30 PM EDT Office Visit [facility] MEDICINE [address] [place] [address] My Hawkins ANP [address] [place] [address] documented as of this encounter Visit Diagnoses Not on filedocumented in this encounter Additional Health Concerns Assessment Noted Time PHQ-9 Depression Total Score: 0 11/13/19 1:31 PM EST documented as of this encounter Care Teams Chassis Driver Relationship Specialty Start Date End Date Adriane Higuera MD [address] [place] [address] PCP - General Family Medicine 06/14/13 [facility] 01/07/25 documented as of this encounter
--- OUTSIDE RECORDS SUMMARY | 2025-01-11 10:26 | XMS_ITS | Encounter Summary ---
Author Organization [employer] Address [address] [facility] 7t [place] [address] Care Team Providers Care Straw Hat Brim Cutter Operator Name Role Phone Adriane Higuera MD Primary Care Provider [phone] Reason for Visit * Reason Onset Date Comments Durable Medical Equipment 01/08/2025 Encounter Details Date Type Department Care Team (Late st Contact Info) Description 01/08/2025 Telephone [facility] MEDICINE [address] [place], [place] [phone] Adriane Higuera MD [address] [place], [place] [phone] Durable Medical Equipment Social History Tobacco Use Types Packs/Day Years [...] Telephone Encounter - Zo Acharya RN - 01/10/2025 9:46 AM EDT Faxed signed DME request for nebulizer to [facility]. Confirmation received. * Telephone Encounter - Zo Acharya RN - 01/09/2025 9:50 AM EDT Received call back from [facility]. Per Jimena, the imaging requested was already received, no further follow up needed. * Telephone Encounter - Zo Acharya RN - 01/09/2025 9:26 AM EDT Called [facility] again, Jimena unavailable. Left message with Marilu asking for call back toclarify imaging question to [phone]. * Telephone Encounter - Zo Acharya RN - 01/08/2025 11:55 AM EDT Returned call to Jimena who was unavailable. Left message with hot braider at cardiology to call back [phone]. Received call from [facility]ana who stated that PCP sent Rx for nebulizer solution today but pt reporting not having nebulizer equipment at home. Pt requesting to update pt's son once scriptsent to DME supplier. Order filled out, placed on PCP desk for signature. * Telephone Encounter - Bradly Macdonald - 01/08/2025 11:32 AM EDT Tc from [facility] with [facility] requesting for the CT Order to be faxed over to the Nurses. Contact Jimena at [phone] documented in this encounter Plan of Treatment Upcoming Encounters Date Type Department Care Team (Late st Contact Info) Description 01/24/2025 2:30 PM EDT Office Visit [facility] MEDICINE [address] [place], [place] [phone] My Hawkins ANP [address] [place], [place] [phone] documented as of this encounter Visit Diagnoses Not on filedocumented in this encounter Additional Health Concerns Assessment Noted Time PHQ-9 Depression Total Score: 0 11/13/19 1:31 PM EST documented as of this encounter Care Teams Straw Hat Brim Cutter Operator Relationship Specialty Start Date End Date Adriane Higuera MD [address] [place] [address] [phone] PCP - General Family Medicine 06/14/13 [facility] 01/07/25 documented as of this encounter
--- OUTSIDE RECORDS SUMMARY | 2025-01-11 10:26 | XMS_ITS | Encounter Summary ---
Author Organization [employer] [facility] Address [address] [facility] 7t [place] [address] Care Team Providers Care Boiler Control Technician Name Role Phone Adriane Higuera MD Primary Care Provider [phone] Encounter Details Date Type Department Care Team (Late st Contact Info) Description 10/20/2022 Orders Only [facility] MEDICINE [address] [place] [address] Abbey Person LPN Social History Tobacco Use [...] Description 01/24/2025 2:30 PM EDT Office Visit [facility] MEDICINE [address] [place] [address] My Hawkins ANP [address] [place] [address] documented as of this encounter Visit Diagnoses Not on filedocumented in this encounter Care Teams Boiler Control Technician Relationship Specialty Start Date End Date Adriane Higuera MD [address] [place] [address] PCP - General Family Medicine 06/14/13 [facility] 01/07/25 documented as of this encounter
== END 2025-01-11 16:10 | disposition home or self-care (01) ==
LOC: HO.HGI 09:32
PROVIDERS: PCP Family Medicine; Visit Provider Internal Medicine Gastroenterology
DX: K31.89 Other diseases of stomach and duodenum (principal)
CPT/HCPCS: 99213

== ENCOUNTER → 2025-01-11 09:32 | Outpatient (BNVA) | payer OTHER, SELFPAY | PROVIDERS: PCP Family Medicine; Visit Provider Internal Medicine Gastroenterology ==

== ENCOUNTER → 2025-01-15 12:00 | Outpatient (BNV) | payer OTHER, SELFPAY | PROVIDERS: PCP Family Medicine; Visit Provider Internal Medicine Medical Oncology | DX: D3A.010 Benign carcinoid tumor of the duodenum (principal) | CPT/HCPCS: 99204 ==

== ENCOUNTER 2025-04-02 13:17 | Outpatient (AMB) | payer OTHER, SELFPAY ==
[2025-04-02 13:27] VITALS: BP 130/64; PULSE 79; O2SAT 98
--- NOTE | 2025-04-02 13:27 | MHC.OFFVIS ---
Vital Signs 04/02/25 13:27 Height 5 ft 9 in BP 130/64 Blood Pressure Location Lt brachial Position Sitting Pulse 79 Pulse Source Pulse Oximeter Pulse Oximetry (%) 98 Oxygen Delivery Method Room Air Intake Visit Reasons: Wheezing/ Cough Intake Note: pt is here as a new patient and states he is feeling excellent, only coughing sometimes but notices he sneezes more. Manager Services Required: No Allergies MEL Inhibitors Adverse Reaction (Mild, Verified 04/02/25 13:56) Unknown Medication List - Last Reconciled 04/02/25 by Alba Montesinos MD allopurinol 100 mg PO DAILY atorvastatin 80 mg PO BEDTIME cholecalciferol (vitamin D3) (Vitamin D3) 25 mcg PO DAILY cyanocobalamin (vitamin B-12) 1,000 mcg PO DAILY ferrous sulfate 325 mg PO DAILY folic acid 1 mg PO DAILY guaifenesin (Chest Congestion Relief) 400 mg PO Q6H PRN levothyroxine 50 mcg PO DAILY@0600 omeprazole 40 mg PO BID@0630,1630 sucralfate (Carafate) 1 g PO QIDACHS 14 days Do you need a note to return to daycare/school/sports/work: No HPI HPI Wheezing/ Cough: Details: THIS GENTLEMAN IS 85 YEARS OLD CROATIAN-SPEAKING, VERY PLEASANT, BEING SEEN BY ME FOR THE 1ST TIME, . FOR PULMONARY EVALUATION WITH CHIEF COMPLAINT OF SHORTNESS OF BREATH ON EXERTION AND INTERMITTENT COUGH. ON CONVERSATION TODAY WITH THE HELP OF ENGLISH LECTURER, HE CLAIMS THAT HE HE FEELS BETTER AND THERE IS NOT MUCH COUGH. HE DENIES SHORTNESS OF BREATH ON WALKING BECAUSE HE DOES NOT WALK AND USES POWERED CHAIR MOST OF THE TIME. . PATIENT HAS HISTORY OF SMOKING IN THE REMOTE PAST BUT QUIT MORE THAN 30 YEARS AGO. HE DOES NOT CARRY ANY DIAGNOSIS OF CHRONIC OBSTRUCTIVE PULMONARY DISEASE ASTHMA. PATIENT HAS PAST MEDICAL HISTORY IS SIGNIFICANT BROOK OF MULTIPLE PROBLEMS. 1- END-STAGE RENAL DISEASE, AND HE GETS DIALYSIS 3 TIMES A WEEK. 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 HE ALSO HAS HAD UPPER ENDOSCOPY WITH A MASS IN THE DUODENUM AND QUESTIONABLE DIAGNOSIS OF CARCINOID CELLS. 4-HYPOTHYROIDISM CONTROLLED WITH THYROID REPLACEMENT. 5-CHRONIC GENERAL WEAKNESS 6- H[facility]ORY [facility] Medical History (Updated 04/02/25 @ 14:24 by Alba Montesinos MD) Chronic restrictive lung disease ESRD (end stage renal disease) Anemia CKD (chronic kidney disease) stage 5, GFR less than 15 ml/min MSSA bacteremia Dialysis patient COVID-19 vaccine administered Renal failure COPD (chronic obstructive pulmonary disease) Thyroid disease GERD (gastroesophageal reflux disease) Elevated cholesterol PVD (peripheral vascular disease) Prostate CA HTN (hypertension) Heart attack Surgical History Hx of endoscopy Hx of cataract surgery Hx of cystoscopy History of incision and drainage H/O colonoscopy Hx of aortic valve replacement Hx of CABG Social History Household Members: Children Household Members Other:: son Housing: Apartment Are you a primary healthcare sales representative to a significant other at home: No Do you presently have visiting nurse or other home services: No Alcohol intake: never Comment: Surgeon informed that all counts were correct Patient Tobacco Use Status: Former Tobacco user e-Cigarette/Vaping Use: Never Used Second Hand Smoke Exposure: No Advance Directives Date on File: 12/05/24 service: No Current occupational status: disabled Review of Systems Const All systems reviewed & are unremarkable except as noted in HPI and below Reports weakness (LEFT HEMIPARESIS, CHRONIC) Eyes Reports no additional complaints ENT Reports no additional complaints Card Denies chest pain, Denies irregular heart rhythm, Denies leg edema and Denies orthopnea Resp Reports as per HPI GI Reports heartburn (CHRONIC GERD SYMPTOMS) Reports no additional complaints Musc Reports abnormal gait (NON AMBULATORY) and Reports muscle weakness (GENERALIZED NONSPECIFIC) Skin/Breast Reports system reviewed and no additional complaints, except as documented Neuro Reports abnormal gait (NON AMBULATORY) and Reports weakness (LEFT HEMIPARESIS, CHRONIC) Psych Reports no additional complaints Endo Reports other (HYPOTHYROIDISM CONTROL) Andrew/Lymph Details: 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 Physical Exam Vital Signs: Last Vital Signs Pulse 79 04/02/25 13:27 BP 130/64 04/02/25 13:27 Pulse Ox 98 04/02/25 13:27 Oxygen Delivery Method Room Air 04/02/25 13:27 Const General: comfortable, no acute distress, alert and awake Orientation/consciousness: patient oriented x3 HEENT Head: Yes normal to inspection General nose exam: No nasal polyps present and No nasal discharge present Face and sinus: Yes sinuses nontender Mouth: oropharynx normal Throat: Yes posterior oropharynx normal Eyes General: appearance normal, both eyes and all related structures Neck Neck: Yes normal visual inspection, Yes no lymphadenopathy, Yes trachea midline and Yes no JVD Thyroid: Thyroid normal Chest Chest palpation & inspection: abnormal inspection of the chest (MID STERNAL SCAR FROM PREVIOUS CABG), normal palpation of entire chest wall and no tenderness Resp Effort & Inspection: normal respiratory effort and symmetric chest movement Auscultation: clear to auscultation bilaterally Cardio Other: HAS MID STERNAL SURGICAL SCAR FROM PREVIOUS CABG SURGERY Palpation: normal PMI Rate: regular rate Rhythm: regular rhythm Heart sounds: no gallops and no murmurs GI Palpation (GI): Soft to palpation, nontender, No hepatosplenomegaly present and no masses Auscultation: normal bowel sounds Back/Spine/Pelvis Thoracic/Lumbar Spine: thoracic and lumbar spine normal to inspection Skin General skin exam: no rashes or lesions noted Neuro General: patient oriented x3, No gait normal (HAS HAD LEFT HEMIPARESIS) and No no focal motor deficits ( WEAKNESS OF THE LEFT LEG AND OR) Cranial nerves: Yes CN's II-XII intact bilaterally Extrem General: Yes normal to inspection, Yes no clubbing, cyanosis or edema and Yes no calf tenderness Psych Appearance: grossly normal and well kempt Speech and movement: Normal speech and movement present Office Procedures Spirometry Testing Spirometry 64028- Spirometry Results Reviewed Results Reviewed: SPIROMETRY PERFORMED IN THE OFFICE FVC 59% , FEV1 63%, FEV1/FVC RATIO 78 FEF 25-75 = 80% C/W MODERATE DEGREE OF RESTRICTIVE PULMONARY DISORDER, NO EVIDENCE OF OBSTRUCTIVE AIRWAY DISORDER. Assessment & Plan Assessment & Plan (1) Chronic restrictive lung disease: Comment: FVC 59 % FLOW VOLUMES ARE NORMAL, IT SEEMS THAT THIS GENTLEMAN HAS CHRONIC MODERATE DEGREE OF RESTRICTIVE PULMONARY DISORDER WHICH IS PROBABLY DUE TO HIS PREVIOUS OPEN HEART SURGERY AND MID STERNAL SCAR. SPIROMETRY FINDINGS TO NOT SUGGEST ANY OBSTRUCTIVE AIRWAY DISORDER. Code(s): J98.4 - Other disorders of lung Category: Medical Plan: EXPLAINED THAT HE DOES HAVE RESTRICTIVE PULMONARY DISORDER, NO SPECIFIC MEDICATION OR TREATMENT IS NEEDED. HOWEVER DEEP BREATHING EXERCISES WITH AN INCENTIVE SPIROMETER CAN BE HELPFUL . GIVEN INCENTIVE SPIROMETRY FROM THE OFFICE AND INSTRUCTED TO DO 10 DEEP BREATHING EXERCISES EACH TIME, IN A.M., AT NOONTIME AND IN THE EVENING. Plan PATIENT WAS ASKING ME IF HE NEEDS TO COME BACK TO SEE ME. I TOLD HIM THAT HE CAN COME EVERY 4-6 MONTHS JUST FOR FOLLOW-UP, . 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
--- OUTSIDE RECORDS SUMMARY | 2025-04-02 15:17 | XMS_ITS | Encounter Summary ---
Author Organization [employer] Address [address] [facility] 7t [place] [address] Care Team Providers Care Locate Technician Name Role Phone Adriane Higuera MD Primary Care Provider [phone] Reason for Visit * Reason Comments Med Refill Encounter Details Date Type Department Care Team (Late st Contact Info) Description 02/21/2023 Refill [facility] MEDICINE [address] [place] [address] [phone] Alecia Flowers MD [address] [place] [address] [phone] Nausea Social History Tobacco Use Types Packs/Day [...] Care Team (Late st Contact Info) Description 05/21/2025 2:15 PM EDT Office Visit [facility] MEDICINE [address] [place] [address] Adriane Higuera MD [address] [place], [place] [phone] documented as of this encounter Visit Diagnoses Diagnosis Nausea Nausea alone documented in this encounter Additional Health Concerns Assessment Noted Time PHQ-9 Depression Total Score: 0 02/02/20 23 3:52 PM EDT documented as of this encounter Care Teams Locate Technician Relationship Specialty Start Date End Date Adriane Higuera MD [address] [place] [address] PCP - General Family Medicine 06/14/13 [facility] 01/07/25 documented as of this encounter
== END 2025-04-02 14:18 | disposition home or self-care (01) ==
LOC: HO.HPS 13:18
PROVIDERS: PCP Family Medicine; Referring Provider Family Medicine; Visit Provider Internal Medicine
DX: J98.4 Other disorders of lung (principal)
CPT/HCPCS: 94010; 99204

== ENCOUNTER → 2025-04-02 13:17 | Outpatient (BNVA) | payer OTHER, SELFPAY | PROVIDERS: PCP Family Medicine; Referring Provider Family Medicine; Visit Provider Internal Medicine | DX: I71.22 Aneurysm of the aortic arch, without rupture (principal); J98.4 Other disorders of lung | CPT/HCPCS: 94010; 99202 ==

== ENCOUNTER 2025-06-04 15:50 | Outpatient (REF) | payer OTHER, SELFPAY ==
--- NOTE | ~2025-06-04 | XR_ITS ---
EXAMINATION: XR SHOULDER, RIGHT CLINICAL INFORMATION: right shoulder pain. HX CVA. Left side weakness. COMPARISON: None available. TECHNIQUE: AP external rotation, Grashey, scapular Y, and axillary views of the right shoulder. FINDINGS: Normal bone mineralization. No fracture, dislocation, or suspicious bone lesion. The glenohumeral joint demonstrates mild degenerative arthritis. There is superior subluxation of the humeral head upon the glenoid. The AC joint demonstrates mild to moderate spurring. There is a type II acromion. No undersurface spurring. There is remodeling of the undersurface with complete loss of the subacromial space indicating rotator cuff tear. Soft tissues appear normal aside from vascular calcifications. There has been a prior median sternotomy. A partially imaged vascular stent is present in the mediastinum. XR/XR shoulder RT min 2V IMPRESSION: 1. No acute findings of the right shoulder. 2. 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 3. Complete loss of the subacromial space with mild subacromial remodeling, consistent with full-thickness rotator cuff tearing. Electronically signed by: Mehrdad Solorzano MD 06/04/2025 04:36 PM EDT
--- OUTSIDE RECORDS SUMMARY | 2025-06-04 15:00 | XMS_ITS | Encounter Summary ---
Author Organization [employer] Address [address] [facility] 7t [place] [address] Care Team Providers Care Integrity Engineer Name Role Phone Adriane Higuera MD Primary Care Provider Reason for Referral * Medications - Closed Specialty Diagnoses / Procedures Referred By Contbrit t Referred To Contact Diagnoses Chronic right shoulder pain Adriane Higuera MD [address] [place] [address] Phone: tel: fax: Referral ID Status Reason Start Date Expiration Date Visits Re quested Visits Authorized [id number] Closed 1 1 Encounter Details Date Type Department Care Team (Latest Contact Info) Description 06/04/2025 3:00 PM EDT [facility] [address] [place], [place] [phone] Adriane Higuera MD [address] [place], [place] [phone] Essential hypertension (Primary Dx); Type 2 diabetes mellitus with chronic kidney disease on chronic dialysis, without long-term current use of insulin (CMS/HCC); End stage renal disease (CMS/HCC); Dyslipidemia; Ischemic heart disease; Aneurysm of descending thoracic 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 (CMS/HCC); History of cerebrovascular accident; 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 (CMS/HCC); Chronic right shoulder pain; Lesion of testis Social History Tobacco Use Types Packs/Day Years Used Date Smoking Tobacco: Former Cigarettes Passive Smoke Exposure: Never Smokeless Tobacco: Never Depression Answer Date Recorded Patient Health Questionnaire-9 Score 0 11/13/2024 Patient Health Questionnaire-9 Score 0 11/13/2024 Last PHQ-9: Questionnaire Data Not on file 0 11/13/2024 Housing Stability Answer Date Recorded What is your housing situation today? I have nithya holcomb 02/26/[address] you li ve. Do you have problems with any of the following? None of the above 02/26/2025 Food Insecurity Answer Date Recorded Within the past 12 months, y ou worried that your food would run out before you got money to buy more: Never True 02/26/2025 Within the past 12 months,th e food you bought just didn't last and you didn't have enough money to get more: Never True Transportation Answer Date Recorded In the past 12 months, has l ack of transportation kept you from medical appts, meetings, work or from getting things needed for daily living? No 02/26/2025 Utilities Answer Date Recorded In the past 12 months, has t he electric, gas, oil or water company threatened to shut off services in your home? No 02/26/2025 Depression Answer Date Recorded Patient Health Questionnaire-2 Score 0 11/13/2024 Internet Access Answer Date Recorded Internet Access Q1 Yes 02/26/2025 Internet Access Q2 Not on file 02/26/2025 Sex and Gender Information Value Date Recorded Sex Assigned at Male 08/09/2022 10:15 AM EDT Legal Sex Male 10:15 AM EDT Gender Identity Male 02/01/2023 3:20 PM EDT Sexual Orientation Don't know 08/09/2022 10 :15 AM EDT documented as of this encounter Last Filed Vital Signs Vital Sign Reading Time Taken Comments Blood Pressure 140/80 06/04/2025 3:07 PM EDT Pulse 44 06/04/2025 3:07 PM EDT Temperature 35.9 C (96.6 F) 06/04/2025 3:07 PM EDT Respiratory Rate 20 06/04/2025 3:07 PM EDT Oxygen Saturation 100% 06/04/2025 3:07 PM EDT Inhaled Oxygen Concentration - - Weight - - Height - - Body Mass Index - - documented in this encounter Plan of Treatment Scheduled Orders Name Type Priority Associated Diagnoses Orde r Schedule Herpes Simplex Virus Culture with Reflex Typing Microbiology Routine Lesion of testis Expected: 06/04/2025, Expires: 06/04/2026 documented as of this encounter Procedures Procedure Name Priority Date/Time Associated Diagnosis Comments POCT GLYCOSYLATED HEMOGLOBIN (HGB A1C) Routine 06/04/2025 3:08 PM EDT Type 2 diabetes mellitus with chronic kidney disease on chronic dialysis, without long-term current use of insulin ([facility]) POCT GLUCOSE Routine 06/04/2025 3:08 PM EDT Type 2 diabetes mellitus with chronic kidney disease on chronic dialysis, without long-term current use of insulin ([facility]) documented in this encounter Results * (ABNORMAL) POCT glycosylated hemoglobin (Hgb A1c) (06/04/2025 3:08 PM EDT) Hemoglobin A1C 6.0(A) 4.0 - 5.7 % QC Media Lot # [id number] Lot# Expiration Date 020 Blood Capillary blood specimen / Unknown 06/04/2025 3:08 PM EDT us Adriane Higuera MD POINT OF CARE TEST ENTER/EDIT OR DERABLES Final Result * POCT glucose manually resulted (06/04/2025 3:08 PM EDT) Glucose Blood, POC 111 60 - 200 mg/dL QC Media Lot # [id number] Lot# Expiration Date ,965,356 Blood Capillary blood specimen / Unknown 06/04/2025 3:08 PM EDT us Adriane Higuera MD POINT OF CARE TEST ENTER/EDIT OR DERABLES Final Result documented in this encounter Visit Diagnoses Diagnosis Essential hypertension- Primary Unspecified essential hypertension Type 2 diabetes mellitus with chronic kidney disease on chronic dialysis, without long-term current use of insulin ([facility]) End stage renal disease ([facility]) End stage renal disease Dyslipidemia Other and unspecified hyperlipidemia Ischemic heart disease Other specified forms of chronic ischemic heart disease Aneurysm of descending thoracic 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 (CMS/HCC) History of cerebrovascular accident Transient ischemic attack (TIA), and cerebral infarction without residual deficits 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 (CMS/HCC) Chronic right shoulder pain Pain in joint, shoulder region Lesion of testis Unspecified disorder of male genital organs documented in this encounter Additional Health Concerns Assessment Noted Time PHQ-9 Depression Total Score: 0 11/13/19 25 1:31 PM EST documented as of this encounter Care Teams Integrity Engineer Relationship Specialty Start Date End Date Adriane Higuera MD [address] [place] [phone] PCP - General Family Medicine 06/14/13 [facility] 01/07/25 documented as of this encounter
--- OUTSIDE RECORDS SUMMARY | 2025-06-04 16:37 | XMS_ITS | Encounter Summary ---
Author Organization [facility] Address [address] [address] Phone Care Team Providers Care Injection Molding Engineer Name Role Phone Adriane Higuera MD Primary Care Provider [phone] Encounter Details Date Type Department Care Team ([facility] st Contact Info) Description 01/09/2025 TCM in Dialysis Clinic [facility] P. [address] [phone] Elder Alfaro MD [address] [phone] Social History Tobacco Use Types [...] 01/09/2025 The patient was seen for a nufo-ln-gsbm visit as part of Transitional Care Management services. Attending Boom Master: ELDER ALFARO Dialysis Location: [facility] DIAL[facility]IS Schedule: Shift: 2 INTERACTIVE CONTACT This ovud-yi-sarq visit occurred within 2 business days of [...] GI F/U card VISIT DIAGNOSES CPT Code 09761 - High complexity, seen within 7 days of discharge. N18.6 End stage renal disease Signed by: ELDER ALFARO MD on 01/09/2025 at 09:12:40 PM Transcribed by: ELDER ALFARO MD on 01/09/2025 at 09:12:40 PM documented in this encounter Plan of Treatment Not on file documented as of this encounter Visit Diagnoses Not on filedocumented in this encounter Care Teams Injection Molding Engineer Relationship Specialty Start Date End Date Adriane Higuera MD [address] [place] [phone] PCP - General Family Medicine 07/17/24 documented as of this encounter
--- OUTSIDE RECORDS SUMMARY | 2025-06-04 16:37 | XMS_ITS | Encounter Summary ---
Author Organization [employer] Address [address] [facility] 7t [place] [address] Care Team Providers Care Pump Installation And Servicer Name Role Phone Adriane Higuera MD Primary Care Provider [phone] Reason for Visit * Reason Comments Med Refill Encounter Details Date Type Department Care Team ([facility] st Contact Info) Description 02/21/2023 Refill [facility] MEDICINE [address] [place], [place] [phone] Alecia Flowers MD [address] [place], [place] [phone] Nausea Social History Tobacco Use Types Packs/Day [...] documented as of this encounter Care Teams Pump Installation And Servicer Relationship Specialty Start Date End Date Adriane Higuera MD [address] [place] [address] PCP - General Family Medicine 06/14/13 [facility] 01/07/25 documented as of this encounter
--- OUTSIDE RECORDS SUMMARY | 2025-06-04 16:38 | XMS_ITS | Encounter Summary ---
Author Organization [facility] Address [address] [place] [phone] Phone Care Team Providers Care Power Plant Operations Manager Name Role Phone Adriane Higuera MD Primary Care Provider [phone] Encounter Details Date Type Department Care Team ([facility] st Contact Info) Description 05/27/2025 Treatment [facility] [address] [phone] Elder Alfaro MD [address] [address] End stage renal disease; Dependence [...] Dialysis Note - Elder Alfaro MD - 05/27/2025 12:00 AM EDT BASIC NOTE Patient: Bi Davey : 1940 Note Author: ELDER ALFARO MD Service Date: 05/27/2025 This patient was personally seen [id number] for a basic visit as part of routine monthly dialysis care for end stage renal disease. Attending Window Display Designer: ELDER ALFARO Dialysis Location: [facility] Schedule: Shift: 2 ADEQUACY ASSESSMENT Kt/V, Natural Log 1.71 (05/15/25) 1.48 (04/10/25) 1.52 (03/13/25) UREA REDUCTION RATIO (%) 77 (05/15/25) 72 (04/10/25) 75 (03/13/25) BUN 78 (05/15/25) 53 (04/10/25) 59 (03/13/25) BUN Post Dialysis 18 (05/15/25) 15 (04/10/25) 15 (03/13/25) Creatinine 7.28 (05/15/25) 6.73 (04/10/25) 6.71 (03/13/25) Bicarbonate (CO2) 26 (05/15/25) 26 (04/10/25) 27 (03/13/25) Sodium 140 (05/15/25) 139 (04/10/25) 142 (03/13/25) ANEMIA ASSESSMENT Hgb 9.7 (05/29/25) 9.7 (05/15/25) 10.2 (04/24/25) Iron Saturation (TSat) 39 (05/15/25) 21 (04/10/25) 33 (03/13/25) Ferritin 1,944 (05/15/25) 1,484 (04/10/25) 1,794 (03/13/25) Iron 70 (05/15/25) 36 (04/10/25) 46 (03/13/25) TIBC 178 (05/15/25) 169 (04/10/25) 140 (03/13/25) MCV 92.2 (05/15/25) 94.8 (04/10/25) 95.5 (03/13/25) Platelets 80 (05/15/25) 91 (04/10/25) 98 (03/13/25) BMM ASSESSMENT Calcium, Adjusted Total 9.2 05/15/25 9.5 04/10/25 9.2 03/13/25 Calcium 9.0 05/15/25 9.2 04/10/25 8.9 03/13/25 Phosphorus, Serum 3.2 05/15/25 3.5 05/01/25 3.1 04/10/25 Ca*PO4 28.8 05/15/25 28.5 04/10/25 24.0 03/13/25 PTH, Intact 711 05/22/25 369 04/10/25 127 01/09/25 Vitamin D, 25-Hydroxy 76 04/10/25 44 10/17/24 Magnesium 1.7 05/15/25 1.7 04/10/25 1.7 03/13/25 Alkaline Phosphatase 168 05/15/25 143 04/10/25 126 03/13/25 Aluminum 4 10/17/24 NUTRITION ASSESSMENT Albumin 3.7 05/15/25 3.6 04/10/25 3.6 03/13/25 Potassium 5.3 05/15/25 5.0 04/10/25 4.5 03/13/25 Hemoglobin A1C 4.8 04/10/25 5.2 01/09/25 4.0 10/17/24 ADDITIONAL LABS White Blood Cells 5.5 (05/15/25) 4.9 (04/10/25) 5.9 (03/13/25) Cholesterol 189 (04/10/25) 138 (01/09/25) 152 (10/17/24) HDL 59 (04/10/25) 45 (01/09/25) 43 (10/17/24) LDL-Calc 107 (04/10/25) 70 (01/09/25) 92 (10/17/24) Triglycerides 117 (04/10/25) 116 (01/09/25) 85 (10/17/24) Hep B Surface Antibody 9 (04/10/25) 13 (10/17/24) 20 (09/24/24) Uric Acid 4.5 (10/17/24) ADDITIONAL COMMENT COMMENTS: 03/06/25 stable 01/12/28 stable doing ok 01/25/25 same 01/2825 stable 05/13/25 stable 05/20/25 doing well 05/27/25 no new issues 03/06/25 stable 03/08/25 doing ok 11/21/24 stable 12/12/24 stable 12/24/24 c/o nausea-- compazine guven 12/26/24 liw bps and gi uoset 01/09/25 poor appetite, has go f/u to see about options 01/11/25 doing ok, eating better per PT 02/13/25 stable 02/25/25 doing well 03/18/25 stable 10/09/24 stable 10/12/23 stable 10/19/24 stable [...] mena x sev days--Zpack ordered 11/09/24 stable 04/10/25 stable 04/15/25 no new issues 04/24/25 stable 05/06/25 stable Signed by: ELDER ALFARO MD on 06/02/2025 at 03:38:58 AM Transcribed by: ELDER ALFARO MD on 06/02/2025 at 03:38:58 AM documented in this encounter Plan of Treatment Not on file documented as of this encounter Visit Diagnoses Diagnosis End stage renal disease Dependence on renal dialysis documented in this encounter Care Teams Power Plant Operations Manager Relationship Specialty Start Date End Date Adriane Higuera MD [address] [place] [id number] PCP - General Family Medicine 07/17/24 documented as of this encounter
--- OUTSIDE RECORDS SUMMARY | 2025-06-04 16:38 | XMS_ITS | Clinical Summary ---
Author Organization [employer] Address [address] [facility] [address] [place] [address] Care Team Providers Care Investment Associate Name Role Phone Adriane Higuera MD Primary Care Provider [phone] Allergies Active Allergy Reactions Criticality Noted Date [...] THE LEFT EAR DAILY 10/26/19 24 Active aspirin (Aspirin Adult Low Strength) 81 MG EC tabletIndicatio ns:Coronary artery disease involving [place] coronary artery of [place] heart without angina pectoris TAKE 1 TABLET BY MOUTH EVERY MORNING 90 tablet 3 03/26/20 24 Active guaiFENesin (Humibid 3) 400 MG tablet Take 1 tablet (400 mg) by mouth every 6 (six) hours if needed for cough. 45 tablet 1 11/13/19 25 Active ipratropium (Atrovent) 0.03 % nasal spray Use 1 spray to each nostril once daily 30 mL 3 11/20/19 25 Active Blood Pressure kitIndications: Essential hypertension 1 each 2 times daily. 1 kit 12/14/19 25 2025 Active Blood Glucose Monitoring Suppl (FreeStyle Lite) w/Device kitIndications: Type 2 diabetes mellitus with chronic kidney disease on chronic dialysis, without long-term current use of insulin ([facility]) 1 each 2 times daily. [...] dialysis, without long-term current use of insulin (CMS/[facility]) Use as instructed 100 each 12 12/14/19 25 Active levothyroxine (Synthroid, Levoxyl) 50 MCG tablet TAKE 1 TABLET BY MOUTH EVERY MORNING 90 tablet 12/20/19 25 Active sucralfate (Carafate) 1 g tablet Take 1 g by mouth before breakfast, before lunch, before evening meal, and at bedtime. 01/05/20 25 Active ipratropium-alb uterol (Duo-Neb) 0.5-2.5 mg/3 mL nebulizer solutionIndicat ions:Wheezing Take 3 mL by nebulization every 6 (six) hours. 180 mL 11 01/09/20 25 2025 Active allopurinol (Zyloprim) 100 MG tablet TAKE 1 TABLET BY MOUTH EVERY MORNING 30 tablet 6 02/26/20 25 Active D3-1000 25 MCG (1000 UT) capsuleIndicati ons:Vitamin D deficiency TAKE 1 CAPSULE BY MOUTH EVERY MORNING 90 capsule 03/25/20 25 Active cyanocobalamin (Vitamin B-12) 1000 MCG tabletIndicatio ns:Vitamin B12 deficiency TAKE 1 TABLET BY MOUTH EVERY MORNING 90 tablet 3 03/25/20 25 Active atorvastatin (Lipitor) 80 MG tabletIndicatio ns:Coronary artery disease involving [place] coronary artery of [place] heart without angina pectoris TAKE 1 TABLET BY MOUTH AT BEDTIME 90 tablet 03/25/20 25 Active omeprazole (PriLOSEC) [address] capsule Take 1 capsule (40 mg) by mouth 2 times daily. 180 capsule 3 05/03/20 25 Active folic acid (Folvite) 1 MG tablet TAKE 1 TABLET BY MOUTH EVERY MORNING 30 tablet 5 05/08/20 25 Active lidocaine (Lidoderm) 5 % patchIndication s:Chronic right shoulder pain Apply 1 patch topically Once per day. Remove & discard patch within 12 hours or as directed by MD. 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 - check the status of follow up. Assessment & Plan (01/08/2025 6:48 PM EDT): [...] multi-lobar. - check CXR - refer to automotive vehicle inspector - Rx nebulizer - optimize treatment for [...] LUE. - pt was given appt with international trade teacher 09/27/24 - ER precautions discussed. 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 S/p EGD with dilation 17 mm on 06/28/23. Sims's esophagus, hiatal hernia and gastric antral vascular ectasia (GAVE). - Continue PPI. Hiatal hernia 12/01/2023 Assessment & Plan (12/13/2023 3:17 PM EST): - following with [facility], last seen on 08/29/23 - s/p [...] Plan (01/08/2025 6:47 PM EDT): -Followed by [facility], and recently seen during the hospitalization [...] 5:16 PM BY ANDREW LEDESMA Referred to Circuitry Negative Inspector CG was given the number to call to schedule appointment Assessment & Plan (11/13/2024 6:28 AM EST): >>ASSESSMENT AND PLAN FOR SENSORINEURAL HEARING LOSS, BILATERAL WRITTEN ON 06/07/2023 4:10 PM BY ANDREW LEDESMA Referred to Circuitry Negative Inspector CG was given the number to call to schedule appointment >>ASSESSMENT AND PLAN FOR HL (HEARING LOSS) WRITTEN ON 06/07/2023 4:56 PM BY ANDREW LEDESMA Patient has new hearing aids Assessment & Plan (10/29/2022 7:04 AM EST): - previously seen by transitional care nurse and ENT - b/l sensorineural hearing loss - refer to transitional care nurse so that he can get hearing aids History of prostate cancer 10/28/2022 Assessment & Plan (07/06/2024 6:40 AM EDT): -s/p radical prostatectomy in 2000 -last seen by urologist in 2019 -prescribed [place] 1000 mcg urethral suppository -pt has not been using frequently -last PSA < 0.04 on 02/03/22 Assessment & Plan (10/30/2022 6:04 AM EST): -s/p radical prostatectomy in 1999 -last seen by urologist in 2018 -prescribed [place] 1000 mcg urethral suppository -pt has not been using frequently -last PSA < 0.04 on 02/03/22 Dependence on renal dialysis 02/05/2021 Assessment & Plan (12/02/2023 10:22 AM EST): -Continue to follow with Nephrology. -Continue current Nephrology indications of dialysis. -Have LEADERSHIP DEVELOPMENT MANAGER make contact for advisement on Ensure contraindication. Assessment & Plan (02/01/2023 5:13 PM EDT): -Dialysis days MWF -Continue current Tx plan per insulating machine operator Assessment & Plan (10/30/2022 5:56 AM EST): -Dialysis days MWF -Continue current Tx plan per insulating machine operator End stage renal disease 02/05/2021 Assessment & Plan (02/26/2025 1:23 PM EDT): - Continue hemodialysis(MWF) - Continue to follow with Nephrology Assessment & Plan (01/08/2025 11:09 AM EDT): [...] & Plan (01/08/2025 5:31 PM EDT): - Underwriting Director RENÉ, last seen on 09/27/24 - Optimize risk factor management and secondary prevention Assessment & Plan (11/13/2024 6:38 PM EST): - Underwriting Director RENÉ - Optimize risk factor management and secondary prevention - Rescheduled an appointment due to chest pain Assessment & Plan (09/19/2024 4:09 PM EST): - Underwriting Director RENÉ - Optimize risk factor management and secondary prevention - Rescheduled an appointment due to chest pain Assessment & Plan (07/06/2024 6:26 AM EDT): - Underwriting Director HFA - Optimize risk factor management and secondary prevention Assessment & Plan (12/02/2023 10:30 AM EST): - Underwriting Director: SHAWN, last seen XXX - Continue current medication as prescribed. - Last echocardiogram: Assessment & Plan (06/07/2023 4:09 PM EDT): - Underwriting Director: SHAWN, last seen 07/24/22 - Current medications: [...] & Plan (02/01/2023 5:15 PM EDT): - Underwriting Director: SHAWN, last seen 07/24/22 - Current medications: [...] & Plan (10/30/2022 5:46 AM EST): - Underwriting Director: SHAWN, last seen 07/24/22 - Current medications: [...] surgery 2014 Coronary artery disease invo lving [place] coronary artery of [place] heart without angina pectoris 08/18/2015 Essential hypertension 08/18/2015 Assessment & Plan (01/08/2025 5:29 PM EDT): - Goal BP < 130/80 per ACC/AHA guideline. - Elevated BP today, but recently hypotensive - Continue working on life style modifications. - Previously on metoprolol succinate 100 mg which was discontinued by insulating machine operator - Previously on ACEI, but discontinued lisinopril [...] succinate 100 mg which was discontinued by insulating machine operator - Previously on ACEI, but discontinued lisinopril [...] succinate 100 mg which was discontinued by insulating machine operator - Previously on ACEI, but discontinued lisinopril [...] 100 mg was discontinued; will confirm with insulating machine operator and pharmacist. - Previously on ACEI, but [...] elevated BP for pt today at 142/79 LEADERSHIP DEVELOPMENT MANAGER states his BP at home is [...] of descending aorta 02/05/2014 Assessment & Plan (02/26/2025 1:22 PM EDT): -Pt had aneurysm of ascending aorta, aortic arch, 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 [...] s/p repair in February 2014 -Followed by [facility] vascular service, last seen by Dr. [...] s/p repair in February 2014 -Followed by [facility] vascular service, last seen by Dr. [...] s/p repair in February 2014 -Followed by [facility] vascular service, last seen by Dr. [...] s/p repair in February 2014 -Followed by [facility] vascular service, last seen by Dr. [...] s/p repair in February 2014 -Followed by [facility] vascular service, last seen by Dr. [...] s/p repair in February 2014 -Followed by [facility] vascular service, last seen by Dr. [...] mellitus, type 2 02/05/2014 Assessment & Plan (02/26/2025 1:23 PM EDT): - HgbA1C is 5.7% on 12/14/24, Goal < 8% due to his age - No longer on medication. Trying to control with diet currently. Previously on metformin and glipizide. - Consider GLP-1 agonist or SGLT-2 inhibitor if A1C > 8% - Last eye exam: [facility] - Last comprehensive foot exam: 06/07/23, high-risk - Last microalbumin test: not indicated since pt has end stage renal dx. worsening proteinuria / nephropathy - Last lipid profile: 09/18/24 - ASA - discontinued - IZ - up to date Assessment & Plan (01/08/2025 6:49 PM EDT): - HgbA1C is 5.7% on 12/14/24, Goal < 8% due to his age - No longer on medication. Trying to control with diet currently. Previously on metformin and glipizide. - Consider GLP-1 agonist or SGLT-2 inhibitor if A1C > 8% - Last eye exam: [facility] - Last comprehensive foot [...] A1C > 8% - Last eye exam: [facility] - Last comprehensive foot [...] DIALYSIS, WITHOUT LONG-TERM CURRENT USE OF INSULIN (CMS/[facility]) WRITTEN ON 06/07/2023 4:10 PM [...] DIALYSIS, WITHOUT LONG-TERM CURRENT USE OF INSULIN ([facility]) WRITTEN ON 06/26/2024 10:54 AM [...] AND PLAN FOR DIABETES MELLITUS, TYPE 2 (CMS/[facility]) WRITTEN ON 02/01/2023 5:12 PM [...] DIALYSIS, WITHOUT LONG-TERM CURRENT USE OF INSULIN ([facility]) WRITTEN ON 2023 11:35 AM [...] of thoracic aorta 07/12/2013 Assessment & Plan (02/26/2025 1:23 PM EDT): -Pt had aneurysm of ascending aorta, aortic arch, 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 [...] 6.3 cm. -Continue risk factor management. -Called [facility] vascular clinic today, and requested a follow up appointment. Faxed CTA report and most recent discharge summary to [facility] [phone]. Assessment & Plan (01/08/2025 6:35 PM EDT): -Pt had aneurysm of ascending aorta, aortic arch, 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 [...] 6.3 cm. -Continue risk factor management. -Called [facility] vascular clinic today, and requested a follow up appointment. Faxed CTA report and most recent discharge summary to [facility] [phone]. Assessment & Plan (09/19/2024 4:12 PM EST): -Pt had aneurysm of ascending aorta, aortic arch, 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 [...] s/p repair in February 2014 -Followed by [facility] vascular service, last seen by Dr. [...] s/p repair in February 2014 -Followed by [facility] vascular service, last seen by Dr. [...] s/p repair in February 2014 -Followed by [facility] vascular service, last seen by Dr. [...] s/p repair in February 2014 -Followed by [facility] vascular service, last seen by Dr. [...] s/p repair in February 2014 -Followed by [facility] vascular service, last seen by Dr. [...] s/p repair in February 2014 -Followed by [facility] vascular service, last seen by Dr. [...] Encounters Date Type Department Care Team Description 06/04/2025 3:00 PM EDT Office Visit [address] [address] Adriane Higuera MD Essential hypertension (Primary Dx); Type 2 diabetes mellitus with chronic kidney disease on chronic dialysis, without long-term current use of insulin (CMS/HCC); End stage renal disease (CMS/HCC); Dyslipidemia; Ischemic heart disease; Aneurysm of descending thoracic 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 (CMS/HCC); History of cerebrovascular accident; 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 (CMS/HCC); Chronic right shoulder pain; Lesion of testis 06/04/2025 Travel 05/30/[address] [address] Adriane Higuera MD Nurse Triage 05/21/[address] [address] Adriane Higuera MD No Show 05/20/[address] [address] Adriane Higuera MD chartprep 05/13/2025 Patient Outreach [address] [address] Adriane Higuera MD Pre-visit Planning ([facility] screening was completed on 02/26/2025) 05/08/2025 Refill [facility] [address] [place], [place] [address] Adriane Higuera MD 05/03/2025 Orders Only [facility] [address] [place] [address] Adriane Higuera MD 05/02/2025 Telephone [facility] [address] [facility] [place] [address] Adriane Higuera MD Med Refill 04/23/2025 Refill [facility] [address] [place] [address] Adriane Higuera MD Dyspepsia 03/26/2025 Telephone [facility] [address] [address] Adriane Higuera MD [place] recall 03/25/2025 Refill [facility] [address] [facility] [place] [address] Adriane Higuera MD Vitamin D deficiency; Vitamin B12 deficiency; Coronary artery disease involving [place] coronary artery of [place] heart without angina pectoris 03/06/2025 Orders Only [facility] [address] [place] [address] Adriane Higuera MD Duodenal mass (Primary Dx); Neuroendocrine tumor 03/05/2025 Telephone [facility] [address] [facility] [place] [place] [address] Adriane Higuera MD Appointment Request from Last 3 Months Immunizations Immunization Administration Dates Next Due Hep B, adult [...] EDT Inhaled Oxygen Concentration - - Weight 74.8 kg (165 lb) 02/26/2025 3:27 PM EDT Height 175.3 cm (5' 9 ) 02/26/2025 3:27 PM EDT Body Mass Index 24.37 02/26/2025 3:27 PM EDT Plan of Treatment Health Maintenance Due Date Last Done Comments RSV Patients and Patients Aged 60 years or older (1 - 1-dose 75+ series) 2014 Hepatitis B Vaccines (3 of 3 - 19+ 3-dose series) 12/10/2014 09/27/2014, 07/16/2014, 06/12/2014 COVID-19 Vaccine ( season) 2025 11/13/2024, 09/28/2023, 09/22/2021, Additional history exists Influenza Vaccine (#1) 2025 , 07/13/2023, 08/02/2019, Additional history exists Diabetes: Hemoglobin A1C 09/04/2025 025, 12/13/2024, 06/26/2024, Additional history exists Lipid Panel 09/18/2025 09/18/2024, 0402/2023, 01/14/2022, Additional history exists Alcohol/Substance Use Screening 11/13/2025 11/13/2024 Depression Screening 11/13/2025 11/13/2024, 11/13/19 Diabetes: Foot Exam 02/26/2026 02/26/2025, 02/26/2025, 02/26/2025, Additional history exists SDOH Screening 02/26/2026 02/26/2025 Eye Exam 03/27/2026 03/27/2024 Tobacco Screening 06/04/2026 06/04/2025 DTaP/Tdap/Td Vaccines (3 - Td or Tdap) 11/13/2034 11/13/2024, 07/13/2013, 11/07/2008, Additional history exists Pneumococcal Vaccine: 50+ Years Completed 05/11/2021, 07/29/2016, 02/23/2014, Additional history exists Zoster Vaccines Completed 03/08/2023, 06/11, 07/29/2016 HIB Vaccines Aged Out No longer eligi [...] patient's age to complete this topic Meningococcal B Vaccine Aged Out No l onger eligible based on patient's age to complete [...] dialysis, without long-term current use of insulin ([facility]) POCT GLUCOSE Routine 06/04/2025 3:08 PM EDT Type 2 diabetes mellitus with chronic kidney disease on chronic dialysis, without long-term current use of insulin ([facility]) LIPID PANEL WITH REFLEX TO DIRECT LDL Routine 09/18/2024 3:43 PM EST Type 2 diabetes mellitus with chronic kidney disease on chronic dialysis, without long-term current use of insulin ([facility]) Dyslipidemia DIABETES EYE EXAM Routine 03/27/2024 from Last 3 Months or Most Recently Relevant to Health Maintenance Results * (ABNORMAL) POCT glycosylated hemoglobin (Hgb A1c) (06/04/2025 3:08 PM EDT) Hemoglobin A1C 6.0(A) 4.0 - 5.7 % QC Media Lot # [id number] Lot# Expiration Date [id number] Blood Capillary blood specimen / Unknown 06/04/2025 3:08 PM EDT Adriane Higuera MD POINT OF CARE TEST ENTER/EDIT OR DERABLES Final Result * POCT glucose manually resulted (06/04/2025 3:08 PM EDT) Glucose Blood, POC 111 60 - 200 mg/dL QC Media Lot # [id number] Lot# Expiration Date ,[id number] Blood Capillary blood specimen / Unknown 06/04/2025 3:08 PM EDT Adriane Higuera MD POINT OF CARE TEST ENTER/EDIT OR DERABLES Final Result * (ABNORMAL) Lipid Panel with Reflex to Direct LDL (09/18/2024 3:43 PM EST) Triglycerides 103 <150 mg/dL [facility] Comment:Desirable Triglyceri de: less than 150 mg/dLBorderline High Triglyceride 150-199 mg/dLHigh Triglyceride: 200-499 mg/dLVery High Triglyceride: greater than or equal to 5OO mg/dL Cholesterol 157 <200 mg/dL [facility] Comment:Desirable Cholestero l: less than 200 mg/dLBorderline High Cholesterol: 200-239 mg/dLHigh Cholesterol: greater than 239 mg/dL LDL Cholesterol Calculated 97 <100 mg/dL [facility] Comment:Desirable LDL: less than 100 mg/dLNear Optimal/Above Optimal LDL: 110- 129 mg/dLBorderline High LDL: 130-159 mg/dLHigh LDL: 160-189 mg/dLVery High LDL: greater than or equal to 190 mg/dL HDL Cholesterol 40(L) >40 mg/dL [facility] Comment:Desirable HDL: great er than 40 mg/dL Note: This HDL assay may give artificially low results in patients with liver disease. Blood 09/18/2024 3:43 PM EST 09/18/2024 4:00 PM EST Adriane Higuera MD LAB BLOOD ORDERABLES Final Resul t [facility] [address] [place] [address] [phone] * Diabetes Eye Exam (03/27/2024) Eye Exam Normal Normal 03/27/2024 us Historical Provider HEALTH MAINTENANCE Final Result from Last 3 Months or Most Recently Relevant to Health Maintenance Insurance [facility]O D-SNP) Care Teams Investment Associate Relationship Specialty Start Date End Date Adriane Higuera MD [address] [place] [address] PCP - General Family Medicine 06/14/13 [employer] [facility] 01/07/25
--- OUTSIDE RECORDS SUMMARY | 2025-06-04 16:38 | XMS_ITS | Clinical Summary ---
Author Organization [facility] Address [address] [place] [address] Care Team Providers Care Estimating Engineer Name Role Phone Unavailable Primary Care Provider Unavailabl e Social History Tobacco Use Types Packs/Day Years Used Date Smoking Tobacco: Never Assessed Sex and Gender Information Value Date Recorded Sex Assigned at Not on file Legal Sex Male 6:42 PM EST Gender Identity Not on file [...]
--- OUTSIDE RECORDS SUMMARY | 2025-06-04 16:38 | XMS_ITS | Encounter Summary ---
Author Organization [employer] Address [address] [facility] 7t [place] [address] Care Team Providers Care Local Government Legislator Name Role Phone Adriane Higuera MD Primary Care Provider [phone] Reason for Visit * Reason Comments Med Refill Encounter Details Date Type Department Care Team ([facility] st Contact Info) Description 01/27/2023 Refill [facility] MEDICINE [address] [place], [place] [phone] Adriane Higuera MD [address] [place] [address] Nausea Social History Tobacco Use Types Packs/Day [...] alone documented in this encounter Care Teams Local Government Legislator Relationship Specialty Start Date End Date Adriane Higuera MD [address] [place], [place] [phone] PCP - General Family Medicine 06/14/13 [facility] 01/07/25 documented as of this encounter
--- OUTSIDE RECORDS SUMMARY | 2025-06-04 16:38 | XMS_ITS | Encounter Summary ---
Author Organization [employer] Address [address] [facility] 7t [place] [address] Care Team Providers Care Assessment Expert Name Role Phone Adriane Higuera MD Primary Care Provider [phone] Reason for Visit * Reason Comments Med Refill Encounter Details Date Type Department Care Team ([facility] st Contact Info) Description 04/23/2025 Refill [facility] MEDICINE [address] [place], [place] [phone] Adriane Higuera MD [address] [place], [place] [phone] Dyspepsia Social History Tobacco Use Types Packs/Day Years [...] as of this encounter Visit Diagnoses Diagnosis Dyspepsia Dyspepsia and other specified disorders of function of stomach documented in this encounter Additional Health Concerns Assessment Noted Time PHQ-9 Depression Total Score: 0 11/13/19 1:31 PM EST documented as of this encounter Care Teams Assessment Expert Relationship Specialty Start Date End Date Adriane Higuera MD [address] [place] [address] PCP - General Family Medicine 06/14/13 [facility] 01/07/25 documented as of this encounter
--- OUTSIDE RECORDS SUMMARY | 2025-06-04 16:38 | XMS_ITS | Encounter Summary ---
Author Organization [facility] Address [address] [place] [phone] Phone Care Team Providers Care Wedding Consultant Name Role Phone Adriane Higuera MD Primary Care Provider [phone] Encounter Details Date Type Department Care Team ([facility] st Contact Info) Description 05/13/2025 Treatment [facility] [address] [address] Elder Alfaro MD [address] [address] End stage renal disease; Dependence [...] Dialysis Note - Elder Alfaro MD - 05/13/2025 12:00 AM EDT BASIC NOTE Patient: Bi Davey : 1940 Note Author: ELDER ALFARO MD Service Date: 05/13/2025 This patient was personally seen [id number] for a basic visit as part of routine monthly dialysis care for end stage renal disease. Attending Lining Repairer: ELDER ALFARO Dialysis Location: [facility] Schedule: Shift: 2 ADEQUACY ASSESSMENT [...] by: ELDER ALFARO MD on 06/02/2025 at 03:38:36 AM Transcribed by: ELDER ALFARO MD on 06/02/2025 at 03:38:36 AM documented in this encounter Plan of Treatment Not on file documented as of this encounter Visit Diagnoses Diagnosis End stage renal disease Dependence on renal dialysis documented in this encounter Care Teams Wedding Consultant Relationship Specialty Start Date End Date Adriane Higuera MD [address] [place] [address] PCP - General Family Medicine 07/17/24 documented as of this encounter
--- OUTSIDE RECORDS SUMMARY | 2025-06-04 16:38 | XMS_ITS | Encounter Summary ---
Author Organization [employer] Address [address] [facility] [address] 7t [place] [address] Care Team Providers Care Network Operations Center Engineer Name Role Phone Adriane Higuera MD Primary Care Provider [phone] Encounter Details Date Type Department Care Team (Latest Contact Info) Description 06/04/2025 Travel Social History Tobacco Use Types Packs/Day [...] documented as of this encounter Care Teams Network Operations Center Engineer Relationship Specialty Start Date End Date Adriane Higuera MD [address] [place] [address] PCP - General Family Medicine 06/14/13 [facility] 01/07/25 documented as of this encounter
--- OUTSIDE RECORDS SUMMARY | 2025-06-04 16:38 | XMS_ITS | Encounter Summary ---
Author Organization [employer] Address [address] [facility] [address] 7t [place] [address] Care Team Providers Care Superintendent Of Generation Name Role Phone Adriane Higuera MD Primary Care Provider [phone] Encounter Details Date Type Department Care Team (Late st Contact Info) Description 05/03/2025 Orders Only [facility] MEDICINE [address] [place], [place] [phone] Adriane Higuera MD [address] [place], [place] [phone] Social History Tobacco Use Types Packs/Day Years [...] documented as of this encounter Care Teams Superintendent Of Generation Relationship Specialty Start Date End Date Adriane Higuera MD [address] [place] [address] PCP - General Family Medicine 06/14/13 [facility] 01/07/25 documented as of this encounter
--- OUTSIDE RECORDS SUMMARY | 2025-06-04 16:38 | XMS_ITS | Encounter Summary ---
Author Organization [employer] Address [address] [facility] 7t [place] [address] Care Team Providers Care Geophysics Scientist Name Role Phone Adriane Higuera MD Primary Care Provider [phone] Reason for Visit * Reason Onset Date Comments Med Refill 05/02/2025 Encounter Details Date Type Department Care Team ([facility] st Contact Info) Description 05/02/2025 Telephone [facility] MEDICINE 230 [place], [place] [phone] Adriane Higuera MD [address] [place], [place] [phone] Med Refill Social History Tobacco Use Types Packs/Day Years [...] Telephone Encounter - Adriane Higuera MD - 05/03/2025 3:54 PM EDT Prescribed omeprazole. * Telephone Encounter - Salome Baker LPN - 05/02/2025 3:31 PM EDT Medication was prescribed from [facility] discharge 01/05/25 will PCP be prescribing? * Telephone Encounter - Carlyle Duran - 05/02/2025 3:19 PM EDT TC from pt requesting medication refill. Medications needing refill : omeprazole (PriLOSEC) [address] capsule To be sent to: [facility] - [place], [place] - [address] documented in this encounter Plan of Treatment Not on file documented as of this encounter Visit Diagnoses Not on filedocumented in this encounter Additional Health Concerns Assessment Noted Time PHQ-9 Depression Total Score: 0 11/13/19 1:31 PM EST documented as of this encounter Care Teams Geophysics Scientist Relationship Specialty Start Date End Date Adriane Higuera MD [address] [place] [address] PCP - General Family Medicine 06/14/13 [facility] 01/07/25 documented as of this encounter
--- OUTSIDE RECORDS SUMMARY | 2025-06-04 16:38 | XMS_ITS | Encounter Summary ---
Author Organization [employer] Address [address] [facility] 7t [place] [address] Care Team Providers Care Field Hockey Coach Name Role Phone Adriane Higuera MD Primary Care Provider [phone] Encounter Details Date Type Department Care Team (Late st Contact Info) Description 10/20/2022 Orders Only [facility] MEDICINE [address] [place] [address] Abbey Person LPN Social History Tobacco Use [...] on filedocumented in this encounter Care Teams Field Hockey Coach Relationship Specialty Start Date End Date Adriane Higuera MD [address] [place] [address] PCP - General Family Medicine 06/14/13 [facility] 01/07/25 documented as of this encounter
--- OUTSIDE RECORDS SUMMARY | 2025-06-04 16:38 | XMS_ITS | Encounter Summary ---
Author Organization [facility] Address [address] [place] [phone] Phone Care Team Providers Care Air Tester Name Role Phone Adriane Higuera MD Primary Care Provider [phone] Encounter Details Date Type Department Care Team ([facility] st Contact Info) Description 05/20/2025 Treatment [facility] [address] [address] Elder Alfaro MD [address] [address] End stage renal disease; Dependence [...] Dialysis Note - Elder Alfaro MD - 05/20/2025 12:00 AM EDT BASIC NOTE Patient: Bi Davey : 1940 Note Author: ELDER ALFARO MD Service Date: 05/20/2025 This patient was personally seen [id number] for a basic visit as part of routine monthly dialysis care for end stage renal disease. Attending Turn Laster: ELDER ALFARO Dialysis Location: [facility] Schedule: Shift: 2 ADEQUACY ASSESSMENT Kt/V, [...] by: ELDER ALFARO MD on 06/02/2025 at 03:38:48 AM Transcribed by: ELDER ALFARO MD on 06/02/2025 at 03:38:48 AM documented in this encounter Plan of Treatment Not on file documented as of this encounter Visit Diagnoses Diagnosis End stage renal disease Dependence on renal dialysis documented in this encounter Care Teams Air Tester Relationship Specialty Start Date End Date Adriane Higuera MD [address] [place] [address] PCP - General Family Medicine 07/17/24 documented as of this encounter
--- OUTSIDE RECORDS SUMMARY | 2025-06-04 16:38 | XMS_ITS ---
Author Name [facility] Organization Unknown Encounters Encounter Type Encounter Reason Primary Diagnosis Location Date Ambulatory [facility] 12/30/2024 Care Team Organization Name Specialty Phone Email Start Date End Da te [employer] 01/08/2025 01/30/2025 [place] [employer] 12/30/2024
--- OUTSIDE RECORDS SUMMARY | 2025-06-04 16:38 | XMS_ITS | Encounter Summary ---
Author Organization [employer] Address [address] [facility] [address], [place] [address] Care Team Providers Care Waxer Floor Name Role Phone Adriane Higuera MD Primary Care Provider [phone] Reason for Referral * Consultation (Routine) - Closed Specialty Diagnoses / Procedures Referred By Contbrit t Referred To Contact Podiatry Diagnoses Type 2 diabetes mellitus with chronic kidney disease on chronic dialysis, without long-term current use of insulin (CMS/HCC) End stage renal disease (CMS/HCC) Venous insufficiency Adriane Higuera MD [address] [place] [address] Phone: tel: fax: Trevor Russell DPM [address] [address] Phone: tel: fax: Referral ID Status Reason Start Date Expiration Date V isits Requested Visits Authorized [id number] Closed Specialty Services Required 11/30/2023 11/29/2024 1 1 Encounter Details Date Type Department Care Team (Late st Contact Info) Description 11/30/2023 Orders Only [facility] MEDICINE [address] [place] [address] Adriane Higuera MD [address] [place], [place] Type 2 diabetes mellitus with chronic [...] without long-term current use of insulin ([facility]) End stage renal disease ([facility]) Venous insufficiency Expected: 11/30/2023 (Approximate), Expires: 11/30/2024 documented as of this encounter Visit Diagnoses Diagnosis Type 2 diabetes mellitus with chronic kidney disease on chronic dialysis, without long-term current use of insulin ([facility])- Primary End stage renal disease ([facility]) End stage renal disease Venous insufficiency Unspecified venous (peripheral) insufficiency documented in this encounter Additional Health Concerns Assessment Noted Time PHQ-9 Depression Total Score: 0 02/02/20 23 3:52 PM EDT documented as of this encounter Care Teams Waxer Floor Relationship Specialty Start Date End Date Adriane Higuera MD [address] [place] [address] PCP - General Family Medicine 06/14/13 [facility] 01/07/25 documented as of this encounter
--- OUTSIDE RECORDS SUMMARY | 2025-06-04 16:38 | XMS_ITS | Encounter Summary ---
Author Organization [employer] Address [address] [facility] 7t [place] [address] Care Team Providers Care Senior Quality Engineer Name Role Phone Adriane Higuera MD Primary Care Provider [phone] Reason for Visit * Reason Onset Date Comments Med Refill 01/17/2025 Encounter Details Date Type Department Care Team ([facility] st Contact Info) Description 01/17/2025 Telephone [facility] MEDICINE [address] [place], [place] [phone] Adriane Higuera MD [address] [place], [place] [phone] Med Refill Social History Tobacco Use Types [...] encounter Miscellaneous Notes * Telephone Encounter - Salome Baker LPN - 01/17/2025 2:19 PM EDT Glucometer was sent to [facility] on 12/13/24. * Telephone Encounter - Alondra Gottlieb - 01/17/2025 2:13 PM EDT TC from Caregiver requesting medication refill. Medications needing refill : Blood Glucose Monitoring Suppl (FreeStyle Lite) w/Device kit To be sent to: [facility] documented in this encounter Plan of Treatment Not on file documented as of this encounter Visit Diagnoses Not on filedocumented in this encounter Additional Health Concerns Assessment Noted Time PHQ-9 Depression Total Score: 0 11/13/19 1:31 PM EST documented as of this encounter Care Teams Senior Quality Engineer Relationship Specialty Start Date End Date Adriane Higuera MD [address] [place] [address] PCP - General Family Medicine 06/14/13 [facility] 01/07/25 documented as of this encounter
--- OUTSIDE RECORDS SUMMARY | 2025-06-04 16:38 | XMS_ITS | Encounter Summary ---
Author Organization [employer] Address [address] [facility] [address] 7t [place] [address] Care Team Providers Care Athletic Equipment Manager Name Role Phone Adriane Higuera MD Primary Care Provider [phone] Reason for Visit * Reason Onset Date Comments Nurse Triage 05/30/2025 Encounter Details Date Type Department Care Team ([facility] st Contact Info) Description 05/30/2025 Telephone [facility] MEDICINE 230 [place], [place] [phone] Adriane Higuera MD [address] [place], [place] [phone] Nurse Triage Social History Tobacco Use Types Packs/Day Years [...] encounter Miscellaneous Notes * Telephone Encounter - Vicky Vital RN - 05/30/2025 4:07 PM EDT called pt to triage, spoke to son Gian. states pt missed his last appt on 05/21 and is requesting to reschedule. son states pt having low back pain more frequently without known injury, numbness, inability to stand or walk, or other associated symptoms. also son states t has a small lump on his scrotum and denies redness, severe pain, rash, fevers, or other associated symptoms. given appt 06/04 with PCP at 3:00 for exam. pt can make follow scott appt as needed during the appt. son understands and agrees with plan. insurance verified. Multiple (2) protocols were used on this call. Disposition for Call: See in Office or Video Visit within 3 Days Protocol Used: Back Pain (Adult) Protocol-Based Disposition: See in Office or Video Visit within 3 Days Video visit offer not recorded Positive Triage Questions: * Patient wants to be seen * Back pain lasts > 2 weeks * All higher-acuity triage questions were negative Care Advice Discussed: * Reassurance and Education - Back Pain * Cold or Heat * Sleep * Continue Activity * Pain Medicines * Reasons To Call Back - Fever occurs - Numbness or weakness occurs - Loss of control of your bladder or bowel - Severe pain not better after taking pain medicines - Pain begins to shoot into the leg - Pain lasts over 2 weeks - Pain becomes worse - You become worse Protocol Used: Skin Lump or Localized Swelling (Adult) Protocol-Based Disposition: Home Care Positive Triage Question: * Small swelling or lump present < 1 week * All higher-acuity triage questions were negative Care Advice Discussed: * Reasons To Call Back - You become worse * Telephone Encounter - Ashley Blake - 05/30/2025 3:20 PM EDT Symptom: Abdominal Pain - Male Outcome: Talk to a nurse or provider within 15 minutes Reason: Severe pain now The caller accepted this outcome. Contact pt at [phone] documented in this encounter Plan of Treatment Not on file documented as of this encounter Visit Diagnoses Not on filedocumented in this encounter Additional Health Concerns Assessment Noted Time PHQ-9 Depression Total Score: 0 11/13/19 1:31 PM EST documented as of this encounter Care Teams Athletic Equipment Manager Relationship Specialty Start Date End Date Adriane Higuera MD [address] [place] [address] PCP - General Family Medicine 06/14/13 [facility] 01/07/25 documented as of this encounter
--- OUTSIDE RECORDS SUMMARY | 2025-06-04 16:38 | XMS_ITS | Encounter Summary ---
Author Organization [employer] Address [address] [facility] 7t [place] [address] Care Team Providers Care Records Analysis Manager Name Role Phone Adriane Higuera MD Primary Care Provider [phone] Reason for Referral * Consultation (Urgent) - Closed Specialty Diagnoses / Procedures Referred By Contac t Referred To Contact Gastroenterology Diagnoses Duodenal mass Neuroendocrine tumor Adriane Higuera MD [address] [place] [address] Phone: tel: fax: [facility] [address] [place], [place] Phone: tel: fax: Referral ID Status Reason Start Date Expiration Date V isits Requested Visits Authorized [id number] Closed Specialty Services Required 03/06/2025 03/06/2026 1 1 Encounter Details Date Type Department Care Team (Late st Contact Info) Description 03/06/2025 Orders Only [facility] MEDICINE [address] [place], [place] [phone] Adriane Higuera MD [address] [place] [address] Duodenal mass (Primary Dx); Neuroendocrine tumor Social History Tobacco Use Types [...] Procedure Name Priority Date/Time Associated Diagnosis Comments AMB REFERRAL TO GASTROENTEROLOGY Urgent 02/18/2025 Duodenal mass Neuroendocrine tumor documented in this encounter Results * Referral to Gastroenterology (02/18/2025) Adriane Higuera MD OUTPATIENT REFERRAL ORDERABLES F inal Result documented in this encounter Visit Diagnoses Diagnosis 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
--- OUTSIDE RECORDS SUMMARY | 2025-06-04 16:38 | XMS_ITS | Clinical Summary ---
Author Organization [facility] Address [address] [place] [address] Phone Care Team Providers Care Traffic Maintenance Supervisor Name Role Phone Adriane Higuera MD Primary Care Provider [phone] Allergies No known active allergies Medications acetaminophen (TYLENOL) 325 MG tablet Take 1 tablet by mouth 1 (one) time each day Active allopurinol (ZYLOPRIM) 100 MG tablet Take 1 tablet by mouth 1 (one) time each day Active alprostadil ([place]) 1000 MCG pellet Comments: Patient Notes: [...] Encounters Date Type Department Care Team Description 05/27/2025 Treatment [facility] [address] [address] Eleuterio Rob MD End stage renal disease; Dependence on renal dialysis 05/20/2025 Treatment [facility] [address] [phone] Eleuterio Rob MD End stage renal disease; Dependence on renal dialysis 05/15/2025 Orders Only [facility] [address] [address] Eleuterio Rob MD 05/13/2025 Treatment [facility] [address] [address] Eleuterio Rob MD End stage renal disease; Dependence on renal dialysis 05/10/2025 Treatment [facility]. [address] [place] [phone] Eleuterio Rob MD End stage renal disease; Dependence on renal dialysis 05/10/2025 Treatment [facility] [address] [facility] [address] [place] [address] Eleuterio Rob MD End stage renal disease; Dependence on renal dialysis 05/06/2025 Treatment [facility] [address] [place] [phone] Eleuterio Rob MD End stage renal disease; Dependence on renal dialysis 04/24/2025 Treatment [facility] [address] [phone] Eleuterio Rob MD End stage renal disease; Dependence on renal dialysis 04/15/2025 Treatment [facility] [address] [phone] Eleuterio Rob MD End stage renal disease; Dependence on renal dialysis 04/10/2025 Treatment [facility] [address] [phone] Eleuterio Rob MD End stage renal disease; Dependence on renal dialysis 04/01/2025 Treatment [facility] [address] [phone] Eleuterio Rob MD End stage renal disease; Dependence on renal dialysis 03/25/2025 Treatment [facility] [address] [address] Eleuterio Rob MD End stage renal disease; Dependence on renal dialysis 03/18/2025 Treatment [facility] [address] [address] Eleuterio Rob MD End stage renal disease; Dependence on renal dialysis 03/11/2025 Treatment [facility]. [address] [place] [phone] Eleuterio Rob MD End stage renal disease; Dependence on renal dialysis 03/08/2025 Treatment [facility] [address] [place] [phone] Eleuterio Rob MD End stage renal disease; Dependence on renal dialysis 03/06/2025 Treatment [facility] [address] [phone] Eleuterio Rob MD End stage renal disease; Dependence on renal dialysis from Last 3 Months Immunizations Immunization Administration Dates Next Due Pneumococcal Polysaccharide 01/24/2014 [...] Visual Foot Exam 11/10/2020 Influenza Vaccine (#1) 2025 5, 08/02/2019, 06/26/2018, Additional history exists Diabetes: Hemoglobin A1C 07/11/2025 07 025, 01/09/2025, 12/13/2024, Additional history exists Pneumococcal Vaccine: 50+ Years Completed 05/11/2021, 07/29/2016, 02/23/2014, Additional history exists Pneumococcal Vaccine: Peds ( 0 to 5 Years) and At-Risk Patients (6 to 49 Years) Discontinued 05/11/2021, 07/29/2016, 02/23/2014, Additional history exists Procedures Procedure Name Priority Date/Time Associated Diagnosis Comments HEMOGLOBIN AND HEMATOCRIT, BLOOD Routine 05/29/2025 3:00 AM EDT PTH, INTACT Routine 05/22/2025 3:00 AM EDT FERRITIN Routine 05/15/2025 3:00 AM EDT HEPATITIS B SURFACE ANTIGEN W/REFL CONFIRM Routine 05/15/2025 3:00 AM EDT TRANSFERRIN SATURATION Routine 3:00 AM EDT PROTEIN, TOTAL, SERUM Routine 05/15/2025 3:00 AM EDT MAGNESIUM Routine 05/15/2025 3:00 AM EDT ELECTROLYTE PANEL Routine 05/15/2025 3:0 0 AM EDT LIH (HC) Routine 05/15/2025 3:00 AM EDT LACTATE DEHYDROGENASE Routine 05/15/2025 3:00 AM EDT GLUCOSE, RANDOM Routine 05/15/2025 3:00 AM EDT CREATININE, SERUM Routine 05/15/2025 3:0 0 AM EDT BUN/CREATININE RATIO Routine 05/15/2025 3:00 AM EDT BILIRUBIN, TOTAL Routine 05/15/2025 3:00 AM EDT AST Routine 05/15/2025 3:00 AM EDT ALT Routine 05/15/2025 3:00 AM EDT ALKALINE PHOSPHATASE Routine 05/15/2025 3:00 AM EDT CALCIUM PHOSPHORUS PRODUCT, ADJUSTED (HC) Routine 05/15/2025 3:00 AM EDT KT/V NATURAL LOG, URR (HC) Routine 05/15/2025 3:00 AM EDT CBC AND DIFFERENTIAL Routine 05/15/2025 3:00 AM EDT HEPATITIS C ABS W/REFLEX RNA DETECTR Routine 05/03/2025 3:00 AM EDT CONFIRMATION TEST HCV Routine 05/03/2025 3:00 AM EDT PHOSPHATE ( PHOSPHORUS) Routine 05/01/2025 3:00 AM EDT LIH (HC) Routine 05/01/2025 3:00 AM EDT HEMOGLOBIN AND HEMATOCRIT, BLOOD Routine 04/24/2025 3:00 AM EDT HEPATITIS B SURFACE ANTIGEN W/REFL CONFIRM Routine 04/15/2025 3:00 AM EDT HEPATITIS B SURFACE ANTIBODY QUANT Routine 04/10/2025 3:00 AM EDT FERRITIN Routine 04/10/2025 3:00 AM EDT TRANSFERRIN SATURATION Routine 3:00 AM EDT PROTEIN, TOTAL, SERUM Routine 04/10/2025 3:00 AM EDT MAGNESIUM Routine 04/10/2025 3:00 AM EDT ELECTROLYTE PANEL Routine 04/10/2025 3:0 0 AM EDT LIPID PANEL Routine 04/10/2025 3:00 AM EDT LACTATE DEHYDROGENASE Routine 04/10/2025 3:00 AM EDT LIH (HC) Routine 04/10/2025 3:00 AM EDT GLUCOSE, RANDOM Routine 04/10/2025 3:00 AM EDT BUN/CREATININE RATIO Routine 04/10/2025 3:00 AM EDT BILIRUBIN, TOTAL Routine 04/10/2025 3:00 AM EDT CREATININE, SERUM Routine 04/10/2025 3:0 0 AM EDT AST Routine 04/10/2025 3:00 AM EDT ALT Routine 04/10/2025 3:00 AM EDT ALKALINE PHOSPHATASE Routine 04/10/2025 3:00 AM EDT CALCIUM PHOSPHORUS PRODUCT, ADJUSTED (HC) Routine 04/10/2025 3:00 AM EDT VITAMIN D 25 HYDROXY Routine 04/10/2025 3:00 AM EDT PTH, INTACT Routine 04/10/2025 3:00 AM EDT HEMOGLOBIN A1C Routine 04/10/2025 3:00 AM EDT KT/V NATURAL LOG, URR (HC) Routine 04/10/2025 3:00 AM EDT CBC AND DIFFERENTIAL Routine 04/10/2025 3:00 AM EDT LIH (HC) Routine 03/27/2025 3:00 AM EDT PHOSPHATE ( PHOSPHORUS) Routine 03/27/2025 3:00 AM EDT HEMOGLOBIN AND HEMATOCRIT, BLOOD Routine 03/27/2025 3:00 AM EDT FERRITIN Routine 03/13/2025 3:00 AM EDT TRANSFERRIN SATURATION Routine 3:00 AM EDT PROTEIN, TOTAL, SERUM Routine 03/13/2025 3:00 AM EDT ELECTROLYTE PANEL Routine 03/13/2025 3:0 0 AM EDT LACTATE DEHYDROGENASE Routine 03/13/2025 3:00 AM EDT LIH (HC) Routine 03/13/2025 3:00 AM EDT MAGNESIUM Routine 03/13/2025 3:00 AM EDT GLUCOSE, RANDOM Routine 03/13/2025 3:00 AM EDT CREATININE, SERUM Routine 03/13/2025 3:0 0 AM EDT BUN/CREATININE RATIO Routine 03/13/2025 3:00 AM EDT AST Routine 03/13/2025 3:00 AM EDT BILIRUBIN, TOTAL Routine 03/13/2025 3:00 AM EDT ALT Routine 03/13/2025 3:00 AM EDT ALKALINE PHOSPHATASE Routine 03/13/2025 3:00 AM EDT CALCIUM PHOSPHORUS PRODUCT, ADJUSTED (HC) Routine 03/13/2025 3:00 AM EDT CBC AND DIFFERENTIAL Routine 03/13/2025 3:00 AM EDT KT/V NATURAL LOG, URR (HC) Routine 03/13/2025 3:00 AM EDT PHOSPHATE ( PHOSPHORUS) Routine 03/06/2025 3:00 AM EDT LIH (HC) Routine 03/06/2025 3:00 AM EDT from Last 3 Months Results * (ABNORMAL) Hemoglobin and hematocrit (05/29/2025 3:00 AM EDT) Only the most recent of3 resultswithin the time period is included. Hgb 9.7(L) 13.7 - 17.5 g/dL [facility] Hematocrit 30.9(L) 40.1 - 51.0 % [facility] Hemoglobin x 3 29.1(L) 41.1 - 52.5 g/dL [facility] 05/29/2025 3:00 AM EDT 05/30/2025 1:51 PM EDT us Eleuterio Rob MD LAB BLOOD ORDERABLES Final Re sult [facility] [address] [place] [address] * PTH, Intact (05/22/2025 3:00 AM EDT) Only the most recent of2 resultswithin the time period is included. PTH, Intact 711 160 - 721 pg/mL [facility] Comment: Suggested (KDIGO) ESRD maintenance range is two to nine times the upper normal limit (80.1 pg/mL) for the laboratory. 05/22/2025 3:00 AM EDT 05/23/2025 2:37 PM EDT Eleuterio Rob MD LAB BLOOD ORDERABLES Final Re sult Performing Organization Address City/[facility]/ZIP Co de Phone Number [facility] [address] [place] [address] * LIH (05/15/2025 3:00 AM EDT) Only the most recent of6 resultswithin the time period is included. Lipemia Normal Normal [facility] Icterus Normal Normal [facility] Hemolysis Normal Normal [facility] 05/15/2025 3:00 AM EDT 05/16/2025 1:05 PM EDT Eleuterio Rob MD LAB [id number] SOLICITED RESULTS Final Result Performing Organization Address [facility] de Phone Number [facility] [address] [place] [address] * (ABNORMAL) Kt/V Natural Log, URR (05/15/2025 3:00 AM EDT) Only the most recent of3 resultswithin the time period is included. Treatment Time 215 min [facility] Pre-Weight, lb 72.9 kg [facility] Post-Weight, lb 70.5 kg [facility] Ultrafiltration Rate 10 <=13 mL/kg/hr [facility] Comment: Recommend achieving Ultrafiltration Rate (UFR) <=10 mL/kg/hr References: Kaitlin LOPEZ et al. Kidney Int. 2010; 79(2):250-257 BUN 78(H) 7 - 25 mg/dL [facility] BUN Post Dialysis 18 7 - 25 mg/dL [facility] UREA REDUCTION RATIO (%) 77 >=65 % [facility] Kt/V Natural Log 1.71 >=1.2 [facility] 05/15/2025 3:00 AM EDT 05/16/2025 12:53 PM EDT Eleuterio Rob MD LAB [id number] SOLICITED RESULTS Final Result Performing Organization Address [facility] Co de Phone Number [facility] [address] [place] [address] * Calcium Phosphorus Product, Adjusted (05/15/2025 3:00 AM EDT) Only the most recent of3 resultswithin the time period is included. Albumin 3.7 3.6 - 5.4 g/dL [facility] Calcium 9.0 8.6 - 10.3 mg/dL [facility] Phosphorus, Serum 3.2 2.5 - 5.0 mg/dL [facility] Ca*PO4 28.8 <55.0 mg2/dL2 [facility] Calcium, Adjusted Total 9.2 8.6 - 10.3 mg/dL [facility] CA*PO4 CORRCTD 29.4 <55.0 mg2/dL2 [facility] 05/15/2025 3:00 AM EDT 05/16/2025 1:05 PM EDT Eleuterio Rob MD LAB [id number] SOLICITED RESULTS Final Result Performing Organization Address [facility]/ZIP Co de Phone Number [facility] [address] [place] [address] * Hepatitis B Surface Ag w/Reflex Confirmation (05/15/2025 3:00 AM EDT) Only the most recent of2 resultswithin the time period is included. Pathologist [facility] Hep B Surface Antigen Negative Negative [facility] 05/15/2025 3:00 AM EDT 05/16/2025 1:05 PM EDT Eleuterio Rob MD LAB BLOOD ORDERABLES Final Re sult Performing Organization Address City/[facility]/ZIP Co de Phone Number [facility] [address] [place] [address] * BUN/CREATININE RATIO (05/15/2025 3:00 AM EDT) Only the most recent of3 resultswithin the time period is included. BUN/Creatinine Ratio 10.7 <=23.0 [facility] 05/15/2025 3:00 AM EDT 05/16/2025 1:05 PM EDT Eleuterio Rob MD LAB [id number] SOLICITED RESULTS Final Result Performing Organization Address [facility] Co de Phone Number [facility] [address] [place] [address] * (ABNORMAL) TSAT (05/15/2025 3:00 AM EDT) Only the most recent of3 resultswithin the time period is included. [facility] Iron 70 65 - 175 ug/dL [facility] Transferrin 127(L) 215 - 365 mg/dL [facility] TIBC 178(L) 211 - 406 ug/dL [facility] Iron Saturation (TSat) 39 22 - 52 % [facility] 05/15/2025 3:00 AM EDT 05/16/2025 1:05 PM EDT Eleuterio Rob MD LAB BLOOD ORDERABLES Final Re sult Performing Organization Address [facility] de Phone Number [facility] [address] [place] [address] * (ABNORMAL) CBC and Differential (05/15/2025 3:00 AM EDT) Only the most recent of3 resultswithin the time period is included. [facility] DIFFERENTIAL MANUAL, 2 Not Indicated [facility] White Blood Cells 5.5 4.2 - 9.1 K/uL [facility] RBC 3.35(L) 4.63 - 6.08 M/uL [facility] Hgb 9.7(L) 13.7 - 17.5 g/dL [facility] Hemoglobin x 3 29.1(L) 41.1 - 52.5 g/dL [facility] Hematocrit 30.9(L) 40.1 - 51.0 % [facility] MCV 92.2 79.0 - 92.2 fL [facility] MCH 29.0 25.7 - 32.2 pg [facility] MCHC 31.4(L) 32.3 - 36.5 g/dL [facility] RDW 15.6(H) 11.6 - 14.4 % [facility] Platelets 80(L) 163 - 337 K/uL [facility] Neutrophils Relative 55.2 34.0 - 67.9 % [facility] Lymphocytes Relative 36.3 21.8 - 53.1 % [facility] Monocytes 6.5 5.3 - 12.2 % [facility] Eosinophils Relative 1.1 0.8 - 7.0 % [facility] Basophils Relative 0.5 0.2 - 1.2 % [facility] Immature Granulocytes 0.4 0.0 - 1.0 % [facility] 05/15/2025 3:00 AM EDT 05/16/2025 12:22 PM EDT Eleuterio Rob MD LAB BLOOD ORDERABLES Final Re sult Performing Organization Address [facility] Co de Phone Number [facility] [address] [place] [address] * ALT (05/15/2025 3:00 AM EDT) Only the most recent of3 resultswithin the time period is included. ALT (SGPT) 15 10 - 49 U/L [facility] 05/15/2025 3:00 AM EDT 05/16/2025 1:05 PM EDT Eleuterio Rob MD LAB BLOOD ORDERABLES Final Re sult Performing Organization Address [facility] de Phone Number [facility] [address] [place] [address] * AST (05/15/2025 3:00 AM EDT) Only the most recent of3 resultswithin the time period is included. AST (SGOT) 15 <34 U/L [facility] 05/15/2025 3:00 AM EDT 05/16/2025 1:05 PM EDT Eleuterio Rob MD LAB BLOOD ORDERABLES Final Re sult Performing Organization Address [facility] de Phone Number [facility] [address] [place] [address] * Protein, total (05/15/2025 3:00 AM EDT) Only the most recent of3 resultswithin the time period is included. Total Protein 6.4 6.4 - 8.9 g/dL [facility] 05/15/2025 3:00 AM EDT 05/16/2025 1:05 PM EDT Eleuterio Rob MD LAB BLOOD ORDERABLES Final Re sult Performing Organization Address [facility] de Phone Number [facility] [address] [place] [address] * (ABNORMAL) Alkaline phosphatase (05/15/2025 3:00 AM EDT) Only the most recent of3 resultswithin the time period is included. Alkaline Phosphatase 168(H) 46 - 116 U/L [facility] 05/15/2025 3:00 AM EDT 05/16/2025 1:05 PM EDT Eleuterio Rob MD LAB BLOOD ORDERABLES Final Re sult Performing Organization Address [facility] de Phone Number [facility] [address] [place] [address] * (ABNORMAL) Magnesium (05/15/2025 3:00 AM EDT) Only the most recent of3 resultswithin the time period is included. Magnesium 1.7(L) 1.9 - 2.7 mg/dL [facility] 05/15/2025 3:00 AM EDT 05/16/2025 1:05 PM EDT Eleuterio Rob MD LAB BLOOD ORDERABLES Final Re sult Performing Organization Address [facility] de Phone Number [facility] [address] [place] [address] * (ABNORMAL) Lactate dehydrogenase (05/15/2025 3:00 AM EDT) Only the most recent of3 resultswithin the time period is included. LDH 372(H) 120 - 246 U/L [facility] 05/15/2025 3:00 AM EDT 05/16/2025 1:05 PM EDT Eleuterio Rob MD LAB BLOOD ORDERABLES Final Re sult Performing Organization Address [facility] de Phone Number [facility] [address] [place] [address] * (ABNORMAL) Glucose, random (05/15/2025 3:00 AM EDT) Only the most recent of3 resultswithin the time period is included. Glucose 187(H) 70 - 99 mg/dL [facility] Comment: ADA guidelines outline the following fasting glucose ranges: Normal: <100 Prediabetes: 100-125 Diabetes: >125 05/15/2025 3:00 AM EDT 05/16/2025 1:05 PM EDT Eleuterio Rob MD LAB BLOOD ORDERABLES Final Re sult Performing Organization Address [facility] de Phone Number [facility] [address] [place] [address] * (ABNORMAL) Ferritin (05/15/2025 3:00 AM EDT) Only the most recent of3 resultswithin the time period is included. Ferritin 1,944(H) 22 - 322 ng/mL [facility] 05/15/2025 3:00 AM EDT 05/16/2025 1:05 PM EDT Eleuterio Rob MD LAB BLOOD ORDERABLES Final Re sult Performing Organization Address [facility] de Phone Number [facility] [address] [place] [address] * (ABNORMAL) Creatinine, serum (05/15/2025 3:00 AM EDT) Only the most recent of3 resultswithin the time period is included. Creatinine 7.28(H) 0.70 - 1.30 mg/dL [facility] 05/15/2025 3:00 AM EDT 05/16/2025 1:05 PM EDT Eleuterio Rob MD LAB BLOOD ORDERABLES Final Re sult Performing Organization Address [facility] de Phone Number [facility] [address] [place] [address] * (ABNORMAL) Bilirubin, total (05/15/2025 3:00 AM EDT) Only the most recent of3 resultswithin the time period is included. Total Bilirubin 0.2(L) 0.3 - 1.2 mg/dL [facility] 05/15/2025 3:00 AM EDT 05/16/2025 1:05 PM EDT Eleuterio Rob MD LAB BLOOD ORDERABLES Final Re sult Performing Organization Address [facility] de Phone Number [facility] [address] [place] [address] * (ABNORMAL) Electrolyte panel (05/15/2025 3:00 AM EDT) Only the most recent of3 resultswithin the time period is included. Sodium 140 136 - 145 mEq/L [facility] Potassium 5.3(H) 3.4 - 5.0 mEq/L [facility] Chloride 98 98 - 107 mEq/L [facility] Bicarbonate (CO2) 26 21 - 31 mEq/L [facility] Anion Gap 16(H) 3 - 14 mEq/L [facility] 05/15/2025 3:00 AM EDT 05/16/2025 1:05 PM EDT Eleuterio Rob MD LAB BLOOD ORDERABLES Final Re sult Performing Organization Address [facility] de Phone Number [facility] [address] [place] [address] * Confirmation Test HCV (05/03/2025 3:00 AM EDT) Hep C Ab Confirmation Not needed [facility] 05/03/2025 3:00 AM EDT 05/04/2025 12:58 PM EDT Eleuterio Rob MD LAB BLOOD ORDERABLES Final Re sult Performing Organization Address [facility] Co de Phone Number [facility] [address] [place] [address] * HEPATITIS C ABS W/REFLEX RNA DETECTR (05/03/2025 3:00 AM EDT) Hep C Virus Ab Non-Reacti ve Non-Reacti ve [facility] 05/03/2025 3:00 AM EDT 05/04/2025 1:16 PM EDT Eleuterio Rob MD LAB [id number] SOLICITED RESULTS Final Result Performing Organization Address [facility] de Phone Number [facility] [address] [place] [address] * Phosphorus (05/01/2025 3:00 AM EDT) Only the most recent of3 resultswithin the time period is included. Pathologist [facility] Phosphorus, Serum 3.5 2.5 - 5.0 mg/dL [facility] 05/01/2025 3:00 AM EDT 05/03/2025 1:46 PM EDT Eleuterio Rob MD LAB BLOOD ORDERABLES Final Re sult Performing Organization Address [facility] de Phone Number [facility] [address] [place] [address] * Vitamin D 25 Hydroxy (04/10/2025 3:00 AM EDT) Vitamin D, 25-Hydroxy 76 30 - 100 ng/mL [facility] Comment: Status Adult Pediatric Deficient: <20 <15 Insufficient: 20-29 15-19 Sufficient: 30-100 20-100 04/10/2025 3:00 AM EDT 04/11/2025 12:12 PM EDT Eleuterio Rob MD LAB BLOOD ORDERABLES Final Re sult Performing Organization Address [facility] de Phone Number [facility] [address] [place] [address] * (ABNORMAL) Hepatitis B Surface Antibody (04/10/2025 3:00 AM EDT) Hep B Surface Antibody 9(A) mIU/mL [facility] Comment: Interpretation: <10: No Immunity >=10: Probable Immunity 04/10/2025 3:00 AM EDT 04/11/2025 12:12 PM EDT Eleuterio Rob MD LAB BLOOD ORDERABLES Final Re sult Performing Organization Address [facility] de Phone Number [facility] [address] [place] [address] * Hemoglobin A1c (04/10/2025 3:00 AM EDT) Pathologist [facility] Hemoglobin A1C 4.8 <5.7 % [facility] Comment: Methodology: Enzymatic Normal: <5.7% Prediabetes: 5.7-6.4% Diabetes: >6.4% Diabetic Glucose Control Evaluation: Therapeutic action suggested at >8.0% ADA recommends a glycemic goal of <7.0% 04/10/2025 3:00 AM EDT 04/11/2025 12:10 PM EDT Eleuterio Rob MD LAB BLOOD ORDERABLES Final Re sult Performing Organization Address [facility] de Phone Number [facility] [address] [place] [address] * (ABNORMAL) Lipid panel (04/10/2025 3:00 AM EDT) Cholesterol 189 mg/dL [facility] Comment: Optimal: <200 Borderline: 200-239 High Risk: >239 Triglycerides 117 mg/dL [facility] Comment: Optimal: <150 Borderline: 150-200 High Risk: >200 HDL 59(L) mg/dL [facility] Comment: Optimal: >59 Borderline: 40-59 High Risk: <40 LDL-Calc 107(H) mg/dL [facility] Comment: Optimal: <100 Borderline: 100-159 High Risk: >159 VLDL Cholesterol Paras 23 mg/dL [facility] Comment: Optimal: <30 Borderline: 30-40 High Risk: >40 Chol/HDL Ratio 3.2 [facility] Comment: Optimal: <3.3 High Risk: >6.2 04/10/2025 3:00 AM EDT 04/11/2025 12:12 PM EDT us Eleuterio Rob MD LAB BLOOD ORDERABLES Final Re sult [facility] [address] [place] [address] from Last [address] [place] [address] MCR ([id number]) MYA PALACIOS [id number] [facility] MCR ([id number]) Care Teams Traffic Maintenance Supervisor Relationship Specialty Start Date End Date dAriane Higuera MD [address] [place] [address] PCP - General Family Medicine 07/17/24
--- OUTSIDE RECORDS SUMMARY | 2025-06-04 16:38 | XMS_ITS | Encounter Summary ---
Author Organization [employer] Address [address] [place] [address] Care Team Providers Care Treatment Technician Name Role Phone Adriane Higuera MD Primary Care Provider [phone] Encounter Details Date Type Department Care Team (Late st Contact Info) Description 09/24/2022 Orders Only [facility] [address] [place], [place] [id number] Salome Baker LPN Social History Tobacco Use [...] on filedocumented in this encounter Care Teams Treatment Technician Relationship Specialty Start Date End Date Adriane Higuera MD [address] [place] [id number] PCP - General Family Medicine 06/14/13 [facility] 01/07/25 documented as of this encounter
== END 2025-06-04 15:51 | disposition home or self-care (01) ==
LOC: HO.HHCX 15:50
PROVIDERS: Visit Provider Family Medicine
DX: M25.511 Pain in right shoulder (principal); N50.9 Disorder of male genital organs, unspecified; G89.29 Other chronic pain
CPT/HCPCS: 36415; 73030; 87255

== ENCOUNTER → 2025-06-04 15:50 | Outpatient (BNV) | payer OTHER, SELFPAY | PROVIDERS: Visit Provider Radiology Diagnostic Radiology | DX: M19.011 Primary osteoarthritis, right shoulder (principal) | CPT/HCPCS: 73030 ==

== ENCOUNTER 2025-07-30 11:33 | Outpatient (AMB) | payer OTHER, SELFPAY ==
--- NOTE | 2025-07-30 11:35 | A.OFFVIS_ITS ---
Intake Visit Reasons: Lesion of testis Intake Note: pateint presents today for: new pt testicular lesion urology medications: allopurinol blood thinners: none Wildlife Veterinarian Required: Yes Accompanied by: Unknown Allergies MEL Inhibitors Adverse Reaction (Mild, Verified 07/30/25 13:55) Unknown HPI Comments Details: Bi is a pleasant male. 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 MSSA bacteremia Dialysis patient COVID-19 vaccine administered Renal failure COPD (chronic obstructive pulmonary disease) Thyroid disease GERD (gastroesophageal reflux disease) Elevated cholesterol PVD (peripheral vascular disease) Prostate CA HTN (hypertension) Heart attack Surgical History Hx of endoscopy Hx of cataract surgery Hx of cystoscopy History of incision and drainage H/O colonoscopy Hx of aortic valve replacement Hx of CABG Social History Household Members: Children Household Members Other:: son Housing: Apartment Are you a primary transitions rn care coordinator to a significant other at home: No Do you presently have visiting nurse or other home services: No Alcohol intake: never Comment: Surgeon informed that all counts were correct Patient Tobacco Use Status: Former Tobacco user e-Cigarette/Vaping Use: Never Used Second Hand Smoke Exposure: No Advance Directives Date on File: 12/05/24 service: No Current occupational status: disabled Review of Systems Const Denies chills and Denies fever(s) Card Reports no additional complaints and Denies syncope Resp Denies cough GI Denies abdominal pain and Denies heartburn Reports as per HPI and Denies change in libido Neuro Denies syncope Psych Denies change in libido Endo Denies change in libido Physical Exam Const General: cooperative, healthy appearing, comfortable and no acute distress Orientation/consciousness: patient oriented x3 HEENT Face and sinus: Yes normal facial exam Mouth: moist mucous membranes Neck Neck: Yes normal visual inspection, Yes full ROM and Yes trachea midline Chest Chest palpation & inspection: normal inspection of the chest Resp Effort & Inspection: normal respiratory effort, able to speak in complete sentences and no respiratory distress GI Inspection: Yes normal to inspection Back/Spine/Pelvis Cervical Spine: normal cervical lordosis Thoracic/Lumbar Spine: thoracic and lumbar spine normal to inspection Skin General skin exam: no rashes or lesions noted Neuro General: patient oriented x3, gait normal, tone normal and moves all extremities Extrem General: Yes normal to inspection and Yes capillary refill normal Assessment & Plan Assessment & Plan (1) Epididymal cyst: Code(s): N50.3 - Cyst of epididymis Category: Medical Plan Reassurance provided Patient Instructions: This note is constructed using voice recognition software. While every effort has been made to ensure accuracy perfect binder operator errors may have been included. Imaging studies, laboratory and physical exam results were discussed and reviewed in detail. No major barriers to patient understanding were identified. An opportunity to ask questions regarding the treatment plan was provided. All questions were answered. The patient expressed understanding and agreement with the above treatment plan. The patient is aware they should contact our office by phone for worsening of their current condition or the appearance of new urologic symptoms. Compliance is encouraged with any medications and followup testing that is ordered. It is a privilege to participate in the urologic care of your patient. If you have any questions or concerns regarding treatment for the above conditions, or other urologic issues, please do not hesitate to contact me. The office telephone contact is [phone]. Sincerely, Dr Samm Hopkins MD, [facility] - Urology Compassionate Specialist Care for the Genitourinary System Coding Level of Care Code New Pt Level 3 (24671) Diagnoses Epididymal cyst N50.3
--- OUTSIDE RECORDS SUMMARY | 2025-07-30 15:02 | XMS_ITS | Encounter Summary ---
Author Organization [employer] Address [address] [facility] [address] [place] [address] Care Team Providers Care Flame Planer Name Role Phone Adriane Higuera MD Primary Care Provider [phone] Reason for Visit * Reason Comments Med Refill Encounter Details Date Type Department Care Team (Late st Contact Info) Description 02/21/2023 Refill [facility] [address], [place] [phone] Alecia Flowers MD [address] [place] [address] [phone] Nausea Social History Tobacco Use Types Packs/Day [...] Care Team (Late st Contact Info) Description 09/03/2025 1:30 PM EST Office Visit [facility] [address], [place] [phone] Adriane Higuera MD [address] [place], [place] [phone] documented as of this encounter Visit Diagnoses Diagnosis Nausea Nausea alone documented in this encounter Additional Health Concerns Assessment Noted Time PHQ-9 Depression Total Score: 0 02/02/20 23 3:52 PM EDT documented as of this encounter Care Teams Flame Planer Relationship Specialty Start Date End Date Adriane Higuera MD [address] [place] [address] PCP - General Family Medicine 06/14/13 [facility] 01/07/25 documented as of this encounter
--- OUTSIDE RECORDS SUMMARY | 2025-07-30 15:02 | XMS_ITS | Encounter Summary ---
Author Organization [facility] Address [address] [phone] Phone Care Team Providers Care Jewelry Mold Maker Name Role Phone Adriane Higuera MD Primary Care Provider [phone] Encounter Details Date Type Department Care Team ([facility] st Contact Info) Description 01/09/2025 TCM in Dialysis Clinic [facility] [address] [facility] [address] [place] [address] Elder Alfaro MD [address] [address] Social History Tobacco Use Types [...] 01/09/2025 The patient was seen for a [id number] visit as part of Transitional Care Management services. Attending Car Salesman: ELDRE ALFARO Dialysis Location: [facility] Schedule: Shift: 2 INTERACTIVE CONTACT This kudl-[id number] visit occurred within 2 business days of [...] GI F/U card VISIT DIAGNOSES CPT Code 10369 - High complexity, seen within 7 days of discharge. N18.6 End stage renal disease Signed by: ELDER ALFARO MD on 01/09/2025 at 09:12:40 PM Transcribed by: ELDER ALFARO MD on 01/09/2025 at 09:12:40 PM documented in this encounter Plan of Treatment Not on file documented as of this encounter Visit Diagnoses Not on filedocumented in this encounter Care Teams Jewelry Mold Maker Relationship Specialty Start Date End Date Adriane Higuera MD [address] [place] [phone] PCP - General Family Medicine 07/17/24 documented as of this encounter
--- OUTSIDE RECORDS SUMMARY | 2025-07-30 15:03 | XMS_ITS | Encounter Summary ---
Author Organization [employer] Address [address] [facility] [address] [place] [address] Care Team Providers Care Laboratory Aide Name Role Phone Adriane Higuera MD Primary Care Provider [phone] Reason for Referral * Consultation (Routine) - Authorized Specialty Diagnoses / Procedures Referred By Contbrit t Referred To Contact Orthopaedic Surgery Diagnoses Chronic right shoulder pain Adriane Higuera MD [address] [place] [address] Phone: tel: fax: [facility] [address] [place] [address] Phone: tel: Referral ID Status Reason Start Date Expiration Date Visits Requested Visits Authorized [id number] Authorized Specialty Services Required 06/05/2025 06/05/2026 1 1 Encounter Details Date Type Department Care Team (Late st Contact Info) Description 06/05/2025 Orders Only [facility] [address] [place], [place] [phone] Adriane Higuera MD [address], [place] [phone] Chronic right shoulder pain (Primary Dx) Social History Tobacco Use Types Packs/Day Years [...] Description 09/03/2025 1:30 PM EST Office Visit [facility] [address] [place] [address] Adriane Higuera MD [address] [place] [address] Scheduled Referrals Name Type Priority Associated Diagnoses Order Schedule Referral to Orthopaedic Surgery Outpatient Referral Routine Chronic right shoulder pain Expected: 06/05/2025 (Approximate), Expires: 06/05/2026 documented as of this encounter Visit Diagnoses Diagnosis Chronic right shoulder pain- Primary Pain in joint, shoulder region documented in this encounter Additional Health Concerns Assessment Noted Time PHQ-9 Depression Total Score: 0 11/13/19 1:31 PM EST documented as of this encounter Care Teams Laboratory Aide Relationship Specialty Start Date End Date Adriane Higuera MD [address] [place] [address] PCP - General Family Medicine 06/14/13 [facility] 01/07/25 documented as of this encounter
--- OUTSIDE RECORDS SUMMARY | 2025-07-30 15:03 | XMS_ITS | Clinical Summary ---
Author Organization [facility] Address [address] [facility] [place] [address] Phone Care Team Providers Care Housekeeping Director Name Role Phone Adriane Higuera MD Primary Care Provider [phone] Allergies No known active allergies Medications acetaminophen (TYLENOL) 325 MG tablet Take 1 tablet by mouth 1 (one) time each day Active allopurinol (ZYLOPRIM) 100 MG tablet Take 1 tablet by mouth 1 (one) time each day Active alprostadil (Bethel) 1000 MCG pellet Comments: Patient Notes: 1 [...] Encounters Date Type Department Care Team Description 07/15/2025 Treatment [facility] [address] [phone] Eleuterio Rob MD End stage renal disease; Dependence on renal dialysis 07/08/2025 Treatment [facility] [address] [phone] Eleuterio Rob MD End stage renal disease; Dependence on renal dialysis 07/03/2025 Treatment [facility] [address] [phone] Eleuterio Rob MD End stage renal disease; Dependence on renal dialysis 06/26/2025 Treatment [facility] [address] [phone] Eleuterio Rob MD End stage renal disease; Dependence on renal dialysis 06/14/2025 Treatment [facility] [address] [phone] Eleuterio Rob MD End stage renal disease; Dependence on renal dialysis 05/27/2025 Treatment [facility] [address] [phone] Eleuterio Rob MD End stage renal disease; Dependence on renal dialysis 05/20/2025 Treatment [facility] [address] [phone] Eleuterio Rob MD End stage renal disease; Dependence on renal dialysis 05/15/2025 Orders Only [facility] [address] [phone] Eleuterio Rob MD 05/13/2025 Treatment [facility] [address] [phone] Eleuterio Rob MD End stage renal disease; Dependence on renal dialysis 05/10/2025 Treatment [facility] [address] [phone] Eleuterio Rob MD End stage renal disease; Dependence on renal dialysis 05/10/2025 Treatment [facility] [address] [facility] [address] [place] [address] Eleuetrio Rob MD End stage renal disease; Dependence on renal dialysis 05/06/2025 Treatment [facility] [address] [phone] Eleuterio Rob MD End stage renal disease; [...] Foot Exam 11/10/2020 Influenza Vaccine (#1) 2025 , 08/02/2019, 06/26/2018, Additional history exists Diabetes: Hemoglobin A1C 10/10/2025 025, 06/04/2025, 04/10/2025, Additional history exists Pneumococcal Vaccine: 50+ Years Completed 05/11/2021, 07/29/2016, 02/23/2014, Additional history exists Pneumococcal Vaccine: Peds ( 0 to 5 Years) and At-Risk Patients (6 to 49 Years) Discontinued 05/11/2021, 07/29/2016, 02/23/2014, Additional history exists Procedures Procedure Name Priority Date/Time Associated Diagnosis Comments HEMOGLOBIN AND HEMATOCRIT, BLOOD Routine 07/24/2025 3:00 AM EDT HEPATITIS B SURFACE ANTIBODY QUANT Routine 07/17/2025 3:00 AM EDT FERRITIN Routine 07/10/2025 3:00 AM EDT HEPATITIS B SURFACE ANTIGEN W/REFL CONFIRM Routine 07/10/2025 3:00 AM EDT PTH, INTACT Routine 07/10/2025 3:00 AM EDT TRANSFERRIN SATURATION Routine 3:00 AM EDT PROTEIN, TOTAL, SERUM Routine 07/10/2025 3:00 AM EDT MAGNESIUM Routine 07/10/2025 3:00 AM EDT ELECTROLYTE PANEL Routine 07/10/2025 3:0 0 AM EDT LIPID PANEL Routine 07/10/2025 3:00 AM EDT LIH (HC) Routine 07/10/2025 3:00 AM EDT LACTATE DEHYDROGENASE Routine 07/10/2025 3:00 AM EDT BUN/CREATININE RATIO Routine 07/10/2025 3:00 AM EDT GLUCOSE, RANDOM Routine 07/10/2025 3:00 AM EDT CREATININE, SERUM Routine 07/10/2025 3:0 0 AM EDT AST Routine 07/10/2025 3:00 AM EDT BILIRUBIN, TOTAL Routine 07/10/2025 3:00 AM EDT ALKALINE PHOSPHATASE Routine 07/10/2025 3:00 AM EDT ALT Routine 07/10/2025 3:00 AM EDT CALCIUM PHOSPHORUS PRODUCT, ADJUSTED (HC) Routine 07/10/2025 3:00 AM EDT HEMOGLOBIN A1C Routine 07/10/2025 3:00 AM EDT CBC AND DIFFERENTIAL Routine 07/10/2025 3:00 AM EDT KT/V NATURAL LOG, URR (HC) Routine 07/10/2025 3:00 AM EDT LIH (HC) Routine 07/03/2025 3:00 AM EDT PHOSPHATE ( PHOSPHORUS) Routine 07/03/2025 3:00 AM EDT HEMOGLOBIN Routine 06/28/2025 3:00 AM EDT HEMOGLOBIN AND HEMATOCRIT, BLOOD Routine 06/26/2025 3:00 AM EDT HEPATITIS B SURFACE ANTIGEN W/REFL CONFIRM Routine 06/12/2025 3:00 AM EDT FERRITIN Routine 06/12/2025 3:00 AM EDT PTH, INTACT Routine 06/12/2025 3:00 AM EDT TRANSFERRIN SATURATION Routine 3:00 AM EDT ELECTROLYTE PANEL Routine 06/12/2025 3:0 0 AM EDT MAGNESIUM Routine 06/12/2025 3:00 AM EDT PROTEIN, TOTAL, SERUM Routine 06/12/2025 3:00 AM EDT LIH (HC) Routine 06/12/2025 3:00 AM EDT LACTATE DEHYDROGENASE Routine 06/12/2025 3:00 AM EDT GLUCOSE, RANDOM Routine 06/12/2025 3:00 AM EDT BUN/CREATININE RATIO Routine 06/12/2025 3:00 AM EDT CREATININE, SERUM Routine 06/12/2025 3:0 0 AM EDT BILIRUBIN, TOTAL Routine 06/12/2025 3:00 AM EDT ALT Routine 06/12/2025 3:00 AM EDT AST Routine 06/12/2025 3:00 AM EDT ALKALINE PHOSPHATASE Routine 06/12/2025 3:00 AM EDT CALCIUM PHOSPHORUS PRODUCT, ADJUSTED (HC) Routine 06/12/2025 3:00 AM EDT CBC AND DIFFERENTIAL Routine 06/12/2025 3:00 AM EDT KT/V NATURAL LOG, URR (HC) Routine 06/12/2025 3:00 AM EDT LIH (HC) Routine 06/05/2025 3:00 AM EDT CALCIUM, ADJUSTED W ALBUMIN Routine 06/05/2025 3:00 AM EDT LIH (HC) Routine 06/03/2025 3:00 AM EDT PHOSPHATE ( PHOSPHORUS) Routine 06/03/2025 3:00 AM EDT HEMOGLOBIN AND HEMATOCRIT, BLOOD Routine 05/29/2025 3:00 [...] LIH (HC) Routine 05/01/2025 3:00 AM EDT from Last 3 Months Results * (ABNORMAL) Hemoglobin and hematocrit (07/24/2025 3:00 AM EDT) Only the most recent of3 resultswithin the time period is included. Hgb 9.5(L) 13.7 - 17.5 g/dL [facility] Hematocrit 31.3(L) 40.1 - 51.0 % [facility] Hemoglobin x 3 28.5(L) 41.1 - 52.5 g/dL [facility] 07/24/2025 3:00 AM EDT 07/25/2025 1:30 PM EDT Eleuterio Rob MD LAB BLOOD ORDERABLES Final Re sult Performing Organization Address [facility] Co de Phone Number [facility] [address] [place] [address] * Hepatitis B Surface Antibody (07/17/2025 3:00 AM EDT) Pathologist [facility] Hep B Surface Antibody >1,000 mIU/mL [facility] Comment: Interpretation: <10: No Immunity >=10: Probable Immunity 07/17/2025 3:00 AM EDT 07/18/2025 4:40 PM EDT Eleuterio Rob MD LAB BLOOD ORDERABLES Final Re sult Performing Organization Address [facility] de Phone Number [facility] [address] [place] [address] * LIH (07/10/2025 3:00 AM EDT) Only the most recent of7 resultswithin the time period is included. Lipemia Normal Normal [facility] Icterus Normal Normal [facility] Hemolysis Normal Normal [facility] 07/10/2025 3:00 AM EDT 07/11/2025 1:57 PM EDT Eleuterio Rob MD LAB [id number] SOLICITED RESULTS Final Result Performing Organization Address [facility] de Phone Number [facility] [address] [place] [address] * (ABNORMAL) Kt/V Natural Log, URR (07/10/2025 3:00 AM EDT) Only the most recent of3 resultswithin the time period is included. Treatment Time 214 min [facility] Pre-Weight, lb 77.1 kg [facility] Post-Weight, lb 71.6 kg [facility] Ultrafiltration Rate 22(H) <=13 mL/kg/hr [facility] Comment: Recommend achieving Ultrafiltration Rate (UFR) <=10 mL/kg/hr References: Kaitlin LOPEZ et al. Kidney Int. 2010; 79(2):250-257 BUN 71(H) 7 - 25 mg/dL [facility] BUN Post Dialysis 14 7 - 25 mg/dL [facility] UREA REDUCTION RATIO (%) 80 >=65 % [facility] Kt/V Natural Log 2.03 >=1.2 [facility] 07/10/2025 3:00 AM EDT 07/11/2025 1:50 PM EDT Eleuterio Rob MD LAB [id number] SOLICITED RESULTS Final Result Performing Organization Address [facility] de Phone Number [facility] [address] [place] [address] * Calcium Phosphorus Product, Adjusted (07/10/2025 3:00 AM EDT) Only the most recent of3 resultswithin the time period is included. Albumin 3.8 3.6 - 5.4 g/dL [facility] Calcium 9.1 8.6 - 10.3 mg/dL [facility] Phosphorus, Serum 2.8 2.5 - 5.0 mg/dL [facility] Ca*PO4 25.5 <55.0 mg2/dL2 [facility] Calcium, Adjusted Total 9.3 8.6 - 10.3 mg/dL [facility] CA*PO4 CORRCTD 26.0 <55.0 mg2/dL2 [facility] 07/10/2025 3:00 AM EDT 07/11/2025 1:57 PM EDT Eleuterio Rob MD LAB [id number] SOLICITED RESULTS Final Result Performing Organization Address [facility] Co de Phone Number [facility] [address] [place] [address] * Hepatitis B Surface Ag w/Reflex Confirmation (07/10/2025 3:00 AM EDT) Only the most recent of3 resultswithin the time period is included. Hep B Surface Antigen Negative Negative [facility] 07/10/2025 3:00 AM EDT 07/11/2025 1:57 PM EDT Eleuterio Rob MD LAB BLOOD ORDERABLES Final Re sult Performing Organization Address [facility] de Phone Number [facility] [address] [place] [address] * BUN/CREATININE RATIO (07/10/2025 3:00 AM EDT) Only the most recent of3 resultswithin the time period is included. BUN/Creatinine Ratio 9.4 <=23.0 [facility] 07/10/2025 3:00 AM EDT 07/11/2025 1:57 PM EDT Eleuterio Rob MD LAB [id number] SOLICITED RESULTS Final Result Performing Organization Address [facility] de Phone Number [facility] [address] [place] [address] * (ABNORMAL) TSAT (07/10/2025 3:00 AM EDT) Only the most recent of3 resultswithin the time period is included. Iron 39(L) 65 - 175 ug/dL [facility] Transferrin 122(L) 215 - 365 mg/dL [facility] TIBC 171(L) 211 - 406 ug/dL [facility] Iron Saturation (TSat) 23 22 - 52 % [facility] 07/10/2025 3:00 AM EDT 07/11/2025 1:57 PM EDT us Eleuterio Rob MD LAB BLOOD ORDERABLES Final Re sult [facility] [address] [place] [address] * (ABNORMAL) CBC and Differential (07/10/2025 3:00 AM EDT) Only the most recent of3 resultswithin the time period is included. DIFFERENTIAL MANUAL, 2 Not Indicated [facility] White Blood Cells 6.0 4.2 - 9.1 K/uL [facility] RBC 3.19(L) 4.63 - 6.08 M/uL [facility] Hgb 9.4(L) 13.7 - 17.5 g/dL [facility] Hemoglobin x 3 28.2(L) 41.1 - 52.5 g/dL [facility] Hematocrit 30.3(L) 40.1 - 51.0 % [facility] MCV 95.0(H) 79.0 - 92.2 fL [facility] MCH 29.5 25.7 - 32.2 pg [facility] MCHC 31.0(L) 32.3 - 36.5 g/dL [facility] RDW 16.1(H) 11.6 - 14.4 % [facility] Platelets 97(L) 163 - 337 K/uL [facility] Comment:Possible platelet cl umps detected. Review result with patient history. MPV Test Canceled fL [facility] Comment:Unable to measure Neutrophils Relative 60.7 34.0 - 67.9 % [facility] Lymphocytes Relative 28.8 21.8 - 53.1 % [facility] Monocytes 8.2 5.3 - 12.2 % [facility] Eosinophils Relative 1.2 0.8 - 7.0 % [facility] Basophils Relative 0.8 0.2 - 1.2 % [facility] Immature Granulocytes 0.3 0.0 - 1.0 % [facility] 07/10/2025 3:00 AM EDT 07/11/2025 2:00 PM EDT us Eleuterio Rob MD LAB BLOOD ORDERABLES Edited R esult - Final Performing Organization Address [facility] de Phone Number [facility] [address] [place] [address] * ALT (07/10/2025 3:00 AM EDT) Only the most recent of3 resultswithin the time period is included. ALT (SGPT) 12 10 - 49 U/L [facility] 07/10/2025 3:00 AM EDT 07/11/2025 1:57 PM EDT us Eleuterio Rob MD LAB BLOOD ORDERABLES Final Re sult Performing Organization Address [facility] de Phone Number [facility] [address] [place] [address] * AST (07/10/2025 3:00 AM EDT) Only the most recent of3 resultswithin the time period is included. AST (SGOT) 20 <34 U/L [facility] 07/10/2025 3:00 AM EDT 07/11/2025 1:57 PM EDT us Eleuterio Rob MD LAB BLOOD ORDERABLES Final Re sult Performing Organization Address [facility] de Phone Number [facility] [address] [place] [address] * Protein, total (07/10/2025 3:00 AM EDT) Only the most recent of3 resultswithin the time period is included. Total Protein 6.4 6.4 - 8.9 g/dL [facility] 07/10/2025 3:00 AM EDT 07/11/2025 1:57 PM EDT us Eleuterio Rob MD LAB BLOOD ORDERABLES Final Re sult Performing Organization Address [facility]/ZIP Co de Phone Number [facility] [address] [place] [address] * (ABNORMAL) Alkaline phosphatase (07/10/2025 3:00 AM EDT) Only the most recent of3 resultswithin the time period is included. Alkaline Phosphatase 177(H) 46 - 116 U/L [facility] 07/10/2025 3:00 AM EDT 07/11/2025 1:57 PM EDT Eleuterio Rob MD LAB BLOOD ORDERABLES Final Re sult Performing Organization Address [facility] Co de Phone Number [facility] [address] [place] [address] * PTH, Intact (07/10/2025 3:00 AM EDT) Only the most recent of3 resultswithin the time period is included. PTH, Intact 622 160 - 721 pg/mL [facility] Comment: Suggested (KDIGO) ESRD maintenance range is two to nine times the upper normal limit (80.1 pg/mL) for the laboratory. 07/10/2025 3:00 AM EDT 07/11/2025 1:57 PM EDT Eleuterio Rob MD LAB BLOOD ORDERABLES Final Re sult Performing Organization Address [facility] Co de Phone Number [facility] [address] [place] [address] * (ABNORMAL) Magnesium (07/10/2025 3:00 AM EDT) Only the most recent of3 resultswithin the time period is included. Magnesium 1.7(L) 1.9 - 2.7 mg/dL [facility] 07/10/2025 3:00 AM EDT 07/11/2025 1:57 PM EDT Eleuterio Rob MD LAB BLOOD ORDERABLES Final Re sult Performing Organization Address [facility] Co de Phone Number [facility] [address] [place] [address] * (ABNORMAL) Lactate dehydrogenase (07/10/2025 3:00 AM EDT) Only the most recent of3 resultswithin the time period is included. LDH 368(H) 120 - 246 U/L [facility] 07/10/2025 3:00 AM EDT 07/11/2025 1:57 PM EDT Eleuterio Rob MD LAB BLOOD ORDERABLES Final Re sult Performing Organization Address [facility] de Phone Number [facility] [address] [place] [address] * Hemoglobin A1c (07/10/2025 3:00 AM EDT) Hemoglobin A1C 5.2 <5.7 % [facility] Comment: Methodology: Enzymatic Normal: <5.7% Prediabetes: 5.7-6.4% Diabetes: >6.4% Diabetic Glucose Control Evaluation: Therapeutic action suggested at >8.0% ADA recommends a glycemic goal of <7.0% 07/10/2025 3:00 AM EDT 07/11/2025 2:00 PM EDT Eleuterio Rob MD LAB BLOOD ORDERABLES Final Re sult Performing Organization Address [facility] de Phone Number [facility] [address] [place] [address] * (ABNORMAL) Glucose, random (07/10/2025 3:00 AM EDT) Only the most recent of3 resultswithin the time period is included. Glucose 126(H) 70 - 99 mg/dL [facility] Comment: ADA guidelines outline the following fasting glucose ranges: Normal: <100 Prediabetes: 100-125 Diabetes: >125 07/10/2025 3:00 AM EDT 07/11/2025 1:57 PM EDT Eleuterio Rob MD LAB BLOOD ORDERABLES Final Re sult Performing Organization Address [facility] Co de Phone Number [facility] [address] [place] [address] * (ABNORMAL) Ferritin (07/10/2025 3:00 AM EDT) Only the most recent of3 resultswithin the time period is included. Ferritin 1,279(H) 22 - 322 ng/mL [facility] 07/10/2025 3:00 AM EDT 07/11/2025 1:57 PM EDT Eleuterio Rob MD LAB BLOOD ORDERABLES Final Re sult Performing Organization Address [facility] de Phone Number [facility] [address] [place] [address] * (ABNORMAL) Creatinine, serum (07/10/2025 3:00 AM EDT) Only the most recent of3 resultswithin the time period is included. Creatinine 7.54(H) 0.70 - 1.30 mg/dL [facility] 07/10/2025 3:00 AM EDT 07/11/2025 1:57 PM EDT Eleuterio Rob MD LAB BLOOD ORDERABLES Final Re sult Performing Organization Address [facility] de Phone Number [facility] [address] [place] [address] * (ABNORMAL) Bilirubin, total (07/10/2025 3:00 AM EDT) Only the most recent of3 resultswithin the time period is included. Total Bilirubin 0.2(L) 0.3 - 1.2 mg/dL [facility] 07/10/2025 3:00 AM EDT 07/11/2025 1:57 PM EDT Eleuterio Rob MD LAB BLOOD ORDERABLES Final Re sult Performing Organization Address [facility] Co de Phone Number [facility] [address] [place] [address] * (ABNORMAL) Lipid panel (07/10/2025 3:00 AM EDT) Cholesterol 183 mg/dL [facility] Comment: Optimal: <200 Borderline: 200-239 High Risk: >239 Triglycerides 109 mg/dL [facility] Comment: Optimal: <150 Borderline: 150-200 High Risk: >200 HDL 48(L) mg/dL [facility] Comment: Optimal: >59 Borderline: 40-59 High Risk: <40 LDL-Calc 113(H) mg/dL [facility] Comment: Optimal: <100 Borderline: 100-159 High Risk: >159 VLDL Cholesterol Paras 22 mg/dL [facility] Comment: Optimal: <30 Borderline: 30-40 High Risk: >40 Chol/HDL Ratio 3.8(H) [facility] Comment: Optimal: <3.3 High Risk: >6.2 07/10/2025 3:00 AM EDT 07/11/2025 1:57 PM EDT Eleuterio Rob MD LAB BLOOD ORDERABLES Final Re sult Performing Organization Address [facility] Co de Phone Number [facility] [address] [place] [address] * (ABNORMAL) Electrolyte panel (07/10/2025 3:00 AM EDT) Only the most recent of3 resultswithin the time period is included. Sodium 141 136 - 145 mEq/L [facility] Potassium 5.1(H) 3.4 - 5.0 mEq/L [facility] Chloride 101 98 - 107 mEq/L [facility] Bicarbonate (CO2) 27 21 - 31 mEq/L [facility] Anion Gap 13 3 - 14 mEq/L [facility] 07/10/2025 3:00 AM EDT 07/11/2025 1:57 PM EDT Eleuterio Rob MD LAB BLOOD ORDERABLES Final Re sult Performing Organization Address [facility] Co de Phone Number [facility] [address] [place] [address] * Phosphorus (07/03/2025 3:00 AM EDT) Only the most recent of3 resultswithin the time period is included. Phosphorus, Serum 3.5 2.5 - 5.0 mg/dL [facility] 07/03/2025 3:00 AM EDT 07/04/2025 1:25 PM EDT Eleuterio Rob MD LAB BLOOD ORDERABLES Final Re sult Performing Organization Address [facility]/ZIP Co de Phone Number [facility] [address] [place] [address] * (ABNORMAL) Hemoglobin (06/28/2025 3:00 AM EDT) Hgb 10.1(L) 13.7 - 17.5 g/dL [facility] Hemoglobin x 3 30.3(L) 41.1 - 52.5 g/dL [facility] 06/28/2025 3:00 AM EDT 06/29/2025 12:55 PM EDT Eleuterio Rob MD LAB BLOOD ORDERABLES Final Re sult Performing Organization Address [facility] Co de Phone Number [facility] [address] [place] [address] * Calcium, Adjusted w Albumin (06/05/2025 3:00 AM EDT) Pathologist [facility] Calcium 9.0 8.6 - 10.3 mg/dL [facility] Albumin 3.7 3.6 - 5.4 g/dL [facility] Calcium, Adjusted Total 9.2 8.6 - 10.3 mg/dL [facility] 06/05/2025 3:00 AM EDT 06/06/2025 1:09 PM EDT Eleuterio Rob MD LAB BLOOD ORDERABLES Final Re sult Performing Organization Address [facility] Co de Phone Number [facility] [address] [place] [address] * Confirmation Test HCV (05/03/2025 3:00 AM EDT) Hep C Ab Confirmation Not needed [facility] 05/03/2025 3:00 AM EDT 05/04/2025 12:58 PM EDT Eleuterio Rob MD LAB BLOOD ORDERABLES Final Re sult Performing Organization Address [facility] Co de Phone Number [facility] [address] [place] [address] * HEPATITIS C ABS W/REFLEX RNA DETECTR (05/03/2025 3:00 AM EDT) Hep C Virus Ab Non-Reacti ve Non-Reacti ve [facility] 05/03/2025 3:00 AM EDT 05/04/2025 1:16 PM EDT Eleuterio Rob MD LAB [id number] SOLICITED RESULTS Final Result Performing Organization Address [facility] de Phone Number [facility] [address] [place] [address] from Last 3 Months Insurance [facility] MCR ([id number]) [facility] MCR ([id number]) MYA PALACIOS [phone] Care Teams Housekeeping Director Relationship Specialty Start Date End Date Adriane Higuera MD [address] [place] [phone] PCP - General Family Medicine 07/17/24
--- OUTSIDE RECORDS SUMMARY | 2025-07-30 15:03 | XMS_ITS | Clinical Summary ---
Author Organization [facility] Address [address] [place] [address] Care Team Providers Care Infection Control Specialist Name Role Phone Unavailable Primary Care Provider Unavailabl e Social History Tobacco Use Types Packs/Day Years Used Date Smoking Tobacco: Never Assessed Sex and Gender Information Value Date Recorded Sex Assigned at Not on file Legal Sex Male 6:42 PM EST Gender Identity Not on file Sexual Orientation Not on file Plan of Treatment Health Maintenance Due Date Last Done Comments Advance Care Planning 1940 DTaP/Tdap/Td Vaccines (1 - Tdap) 1958 Pneumococcal Vaccines 50+ (1 of 1 - PCV) 1989 Zoster (Shingles) Vaccine (1 of 2) 1989 RSV Vaccine 50 years and old er and Patients (1 - 1-dose 75+ series) 2014 COVID-19 Vaccine (2 - 2023-2 5 season) 2025 11/13/2024 Hepatitis B Vaccines Aged Out No long er eligible based on patient's age to complete this topic
--- OUTSIDE RECORDS SUMMARY | 2025-07-30 15:03 | XMS_ITS | Encounter Summary ---
Author Organization [employer] Address [address] [facility] [address] [place] [address] Care Team Providers Care Diesel Service Journeyman Name Role Phone Adriane Higuera MD Primary Care Provider [phone] Reason for Visit * Reason Comments Med Refill Encounter Details Date Type Department Care Team ([facility] st Contact Info) Description 04/23/2025 Refill [facility] [address] [place], [place] [phone] Adriane Higuera MD [address] [place], [place] [phone] Dyspepsia Social History Tobacco Use Types Packs/Day [...] Description 09/03/2025 1:30 PM EST Office Visit [facility] [address] [place] [phone] Adriane Higuera MD [address] [place] [phone] documented as of this encounter Visit Diagnoses Diagnosis Dyspepsia Dyspepsia and other specified disorders of function of stomach documented in this encounter Additional Health Concerns Assessment Noted Time PHQ-9 Depression Total Score: 0 11/13/19 1:31 PM EST documented as of this encounter Care Teams Diesel Service Journeyman Relationship Specialty Start Date End Date Adriane Higuera MD [address] [place] [id number] PCP - General Family Medicine 06/14/13 [facility] 01/07/25 documented as of this encounter
--- OUTSIDE RECORDS SUMMARY | 2025-07-30 15:03 | XMS_ITS | Encounter Summary ---
Author Organization [employer] Address [address] [facility] 7t [place] [address] Care Team Providers Care Layaway Clerk Name Role Phone Adriane Higuera MD Primary Care Provider [phone] Reason for Visit * Reason Onset Date Comments Med Refill 01/17/2025 Encounter Details Date Type Department Care Team ([facility] st Contact Info) Description 01/17/2025 Telephone [facility] [address] [place], [place] [phone] Adriane Higuera MD [address] [place], [place] [phone] Med Refill Social History Tobacco Use Types [...] 2:19 PM EDT Glucometer was sent to [facility] on 12/13/24. * Telephone Encounter - Alondra Gottlieb - 01/17/2025 2:13 PM EDT TC from Caregiver requesting medication refill. Medications needing refill : Blood Glucose Monitoring Suppl (FreeStyle Lite) w/Device kit To be sent to: [facility] documented in this encounter Plan of Treatment Upcoming Encounters Date Type Department Care Team (Late st Contact Info) Description 09/03/2025 1:30 PM EST Office Visit [facility] [address] [place] [address] Adriane Higuera MD [address] [place] [address] documented as of this encounter Visit Diagnoses Not on filedocumented in this encounter Additional Health Concerns Assessment Noted Time PHQ-9 Depression Total Score: 0 11/13/19 1:31 PM EST documented as of this encounter Care Teams Layaway Clerk Relationship Specialty Start Date End Date Adriane Higuera MD [address] [place] [address] PCP - General Family Medicine 06/14/13 [facility] 01/07/25 documented as of this encounter
--- OUTSIDE RECORDS SUMMARY | 2025-07-30 15:03 | XMS_ITS | Encounter Summary ---
Author Organization [email or web address] Address [address] [facility] 7t [place] [address] Care Team Providers Care Screedman/Laborer Name Role Phone Adriane Higuera MD Primary Care Provider [phone] Reason for Referral * Consultation (Urgent) - Closed Specialty Diagnoses / Procedures Referred By Contac t Referred To Contact Gastroenterology Diagnoses Duodenal mass Neuroendocrine tumor (HCC) Adriane Higuera MD [address] [place] [address] Phone: tel: fax: [facility] [address] [place], [place] Phone: tel: fax: Referral ID Status Reason Start Date Expiration Date V isits Requested Visits Authorized [id number] Closed Specialty Services Required 03/06/2025 03/06/2026 1 1 Encounter Details Date Type Department Care Team (Late st Contact Info) Description 03/06/2025 Orders Only [facility] MED[facility] [address] [place], [place] [phone] Adriane Higuera MD [address] [place], [place] [phone] Duodenal mass (Primary Dx); Neuroendocrine tumor Social [...] Description 09/03/2025 1:30 PM EST Office Visit [facility] [address] [place] [address] Adriane Higuera MD [address] [place] [address] documented as of this encounter Procedures Procedure Name Priority Date/Time Associated Diagnosis Comments AMB REFERRAL TO GASTROENTEROLOGY Urgent 02/18/2025 Duodenal mass Neuroendocrine tumor documented in this encounter Results * Referral to Gastroenterology (02/18/2025) us Adriane Higuera MD OUTPATIENT REFERRAL ORDERABLES F inal Result documented in this encounter Visit Diagnoses Diagnosis 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
--- OUTSIDE RECORDS SUMMARY | 2025-07-30 15:03 | XMS_ITS | Encounter Summary ---
Author Organization [employer] Address [address] [facility] [address] 7[address] [place] [address] Care Team Providers Care Car Runner Name Role Phone Adriane Higuera MD Primary Care Provider [phone] Encounter Details Date Type Department Care Team (Late st Contact Info) Description 05/03/2025 Orders Only [facility] MED[facility]INE [address] [place], [place] [phone] Adriane Higuera MD [address] [place], [place] [phone] Social History Tobacco Use Types Packs/Day Years [...] Description 09/03/2025 1:30 PM EST Office Visit [facility] [address] [place] [address] Adriane Higuera MD [address] [place] [address] documented as of this encounter Visit Diagnoses Not on filedocumented in this encounter Additional Health Concerns Assessment Noted Time PHQ-9 Depression Total Score: 0 11/13/19 1:31 PM EST documented as of this encounter Care Teams Car Runner Relationship Specialty Start Date End Date Adriane Higuera MD [address] [place] [address] PCP - General Family Medicine 06/14/13 [facility] 01/07/25 documented as of this encounter
--- OUTSIDE RECORDS SUMMARY | 2025-07-30 15:03 | XMS_ITS | Encounter Summary ---
Author Organization [facility] [facility] Address [address] [facility] 7t [place] [address] Care Team Providers Care Head Knitting Machine Fixer Name Role Phone Adriane Higuera MD Primary Care Provider [phone] Encounter Details Date Type Department Care Team (Late st Contact Info) Description 10/20/[address] [facility] MED[facility] [address] [place] [address] Abbey Person LPN Social History Tobacco Use [...] Description 09/03/2025 1:30 PM EST Office Visit [facility] [address] [place] [address] Adriane Higuera MD [address] [place] [address] documented as of this encounter Visit Diagnoses Not on filedocumented in this encounter Care Teams Head Knitting Machine Fixer Relationship Specialty Start Date End Date Adriane Higuera MD [address] [place] [address] PCP - General Family Medicine 06/14/13 [facility] 01/07/25 documented as of this encounter
--- OUTSIDE RECORDS SUMMARY | 2025-07-30 15:03 | XMS_ITS | Encounter Summary ---
Author Organization [email or web address] Address [address] [facility] 7t [place] [address] Care Team Providers Care Turret Punch Press Operator Name Role Phone Adriane Higuera MD Primary Care Provider [phone] Encounter Details Date Type Department Care Team (Late st Contact Info) Description 09/24/2022 Orders Only [facility] [address] [place], [place] [phone] Salome Baker LPN Social History Tobacco Use [...] Description 09/03/2025 1:30 PM EST Office Visit [facility] [address] [place] [address] Adriane Higuera MD [address] [place] [address] documented as of this encounter Visit Diagnoses Not on filedocumented in this encounter Care Teams Turret Punch Press Operator Relationship Specialty Start Date End Date Adriane Higuera MD [address] [place] [address] PCP - General Family Medicine 06/14/13 [facility] 01/07/25 documented as of this encounter
--- OUTSIDE RECORDS SUMMARY | 2025-07-30 15:03 | XMS_ITS | Encounter Summary ---
Author Organization [employer] Address [address] [facility] [address] [place] [address] Care Team Providers Care Card Game Operator Name Role Phone Adriane Higuera MD Primary Care Provider [phone] Reason for Referral * Consultation (Routine) - Closed Specialty Diagnoses / Procedures Referred By Contbrit t Referred To Contact Podiatry Diagnoses Type 2 diabetes mellitus with chronic kidney disease on chronic dialysis, without long-term current use of insulin (HCC) End stage renal disease (HCC) Venous insufficiency Adriane Higuera MD [address] [place] [address] Phone: tel: fax: Trevor Russell [facility] [address] [address] Phone: tel: fax: Referral ID Status Reason Start Date Expiration Date V isits Requested Visits Authorized [id number] Closed Specialty Services Required 11/30/2023 11/29/2024 1 1 Encounter Details Date Type Department Care Team (Late st Contact Info) Description 11/30/2023 Orders Only [facility] MED[facility]INE [address] [place] [address] Adriane Higuera MD [address] [place], [place] Type 2 diabetes mellitus with chronic [...] Description 09/03/2025 1:30 PM EST Office Visit [facility] [address] [place] [address] Adriane Higuera MD [address] [place] [address] Scheduled Referrals Name Type Priority Associated Diagnoses Orde r Schedule Referral to Podiatry Outpatient Referral Routine Type 2 diabetes mellitus with chronic kidney disease on chronic dialysis, without long-term current use of insulin (CMS/HCC) End stage renal disease (CMS/HCC) Venous insufficiency Expected: 11/30/2023 (Approximate), Expires: 11/30/2024 documented as of this encounter Visit Diagnoses Diagnosis Type 2 diabetes mellitus with chronic kidney disease on chronic dialysis, without long-term current use of insulin (HCC)- Primary End stage renal disease (HCC) End stage renal disease Venous insufficiency Unspecified venous (peripheral) insufficiency documented in this encounter Additional Health Concerns Assessment Noted Time PHQ-9 Depression Total Score: 0 02/02/20 23 3:52 PM EDT documented as of this encounter Care Teams Card Game Operator Relationship Specialty Start Date End Date Adriane Higuera MD [address] [place] [address] PCP - General Family Medicine 06/14/13 [facility] 01/07/25 documented as of this encounter
--- OUTSIDE RECORDS SUMMARY | 2025-07-30 15:03 | XMS_ITS | Encounter Summary ---
Author Organization [employer] Address [address] [facility] 7t [place] [address] Care Team Providers Care Jawbone Puller Name Role Phone Adriane Higuera MD Primary Care Provider [phone] Reason for Visit * Reason Comments Med Refill Encounter Details Date Type Department Care Team (Late st Contact Info) Description 01/27/2023 Refill [facility] MED[facility]INE [address] [place], [place] [phone] Adriane Higuera MD [address] [place] [address] Nausea Social History Tobacco Use Types Packs/Day [...] Description 09/03/2025 1:30 PM EST Office Visit [facility] MED[facility]INE [address] [place] [phone] Adriane Higuera MD [address] [place] [address] documented as of this encounter Visit Diagnoses Diagnosis Nausea Nausea alone documented in this encounter Care Teams Jawbone Puller Relationship Specialty Start Date End Date Adriane Higuera MD [address] [place] [address], [place] [address] PCP - General Family Medicine 06/14/13 [facility] 01/07/25 documented as of this encounter
--- OUTSIDE RECORDS SUMMARY | 2025-07-30 15:03 | XMS_ITS | Clinical Summary ---
Author Organization [employer] Address [address] [facility] [address] [place] [address] Care Team Providers Care Construction Safety Manager Name Role Phone Adriane Higuera MD Primary Care Provider [phone] Allergies Active Allergy Reactions Criticality Noted Date Comments Alejandro Inhibitors 04/17/2019 Other reaction(s): Recurrent hyperkalemia / contraindication Nsaids 04/17/2019 Other reaction(s): contraindication Medications Restasis MultiDose 0.05 % ophthalmic emulsion Administer 1 drop into both eyes 2 times daily. 2 Active midodrine (Proamatine) 5 MG tablet TAKE 1 TABLET BY MOUTH THREE TIMES A WEEK MID TREATMENT DIRECTED 2 Active acetaminophen (Tylenol) 500 MG tablet Take by mouth. 1 tablet by mouth daily as needed for pain Active Neomycin-Polymyx in-HC 1 % solution INSTILL 5 DROPS INTO THE LEFT EAR DAILY 4 Active aspirin (Aspirin Adult Low Strength) 81 MG EC tabletIndication s:Coronary artery disease involving iqugmiut coronary artery of iqugmiut heart without angina pectoris TAKE 1 TABLET BY MOUTH EVERY MORNING 90 tablet 3 4 Active guaiFENesin (Humibid 3) 400 MG tablet Take 1 tablet (400 mg) by mouth every 6 (six) hours if needed for cough. 45 tablet 1 5 Active ipratropium (Atrovent) 0.03 % nasal spray Use 1 spray to each nostril once daily 30 mL 3 5 Active Blood Pressure kitIndications:E ssential hypertension 1 each 2 times daily. 1 kit 5 026 Active Blood Glucose Monitoring Suppl (FreeStyle Lite) w/Device kitIndications:T ype 2 diabetes mellitus with chronic kidney disease on chronic dialysis, without long-term current use of insulin (HCC) 1 each 2 times daily. 1 kit 5 Active FREESTYLE LITE test stripIndications :Type 2 diabetes mellitus with chronic kidney disease on chronic dialysis, without long-term current use of insulin (HCC) Use as instructed 100 each 12 5 Active levothyroxine (Synthroid, Levoxyl) 50 MCG tablet TAKE 1 TABLET BY MOUTH EVERY MORNING 90 tablet 3 5 Active sucralfate (Carafate) 1 g tablet Take 1 g by mouth before breakfast, before lunch, before evening meal, and at bedtime. 5 Active ipratropium-albu terol (Duo-Neb) 0.5-2.5 mg/3 mL nebulizer solutionIndicati ons:Wheezing Take 3 mL by nebulization every 6 (six) hours. 180 mL 11 5 026 Active allopurinol (Zyloprim) 100 MG tablet TAKE 1 TABLET BY MOUTH EVERY MORNING 30 tablet 6 5 Active D3-1000 25 MCG (1000 UT) capsuleIndicatio ns:Vitamin D deficiency TAKE 1 CAPSULE BY MOUTH EVERY MORNING 90 capsule 3 5 Active cyanocobalamin (Vitamin B-12) 1000 MCG tabletIndication s:Vitamin B12 deficiency TAKE 1 TABLET BY MOUTH EVERY MORNING 90 tablet 3 5 Active atorvastatin (Lipitor) 80 MG tabletIndication s:Coronary artery disease involving iqugmiut coronary artery of iqugmiut heart without angina pectoris TAKE 1 TABLET BY MOUTH AT BEDTIME 90 tablet 3 5 Active omeprazole (PriLOSEC) [address] capsule Take 1 capsule (40 mg) by mouth 2 times daily. 180 capsule 3 5 Active folic acid (Folvite) 1 MG tablet TAKE 1 TABLET BY MOUTH EVERY MORNING 30 tablet 5 5 Active lidocaine (Lidoderm) 5 % patchIndications :Chronic right shoulder pain Apply 1 patch topically Once per day. Remove & discard patch within 12 hours or as directed by MD. 30 patch 11 5 Active TRUEplus Lancets 33G miscIndications: Type 2 diabetes mellitus with chronic kidney disease on chronic dialysis, without long-term current use of insulin (HCC) USE TO TEST BLOOD SUGAR TWICE DAILY 100 each 3 Active Active Problems Problem Noted Date Diagnosed [...] multi-lobar. - check CXR - refer to boiler water tester - Rx nebulizer - optimize treatment for duodenal mass and esophageal stricture - Rx doxycycline and prednisone Erosive esophagitis 12/13/2024 Protein calorie malnutrition 11/20/2024 Assessment & Plan (11/20/2024 11:10 AM EST): - ESRD on HD - increase nutritional supplement intake Weight loss 11/20/2024 Assessment & Plan (06/14/2025 6:16 PM EDT): - most recent TSH was therapeutic level - continue nutritional supplement intake - patient needs an assistance in eating due to CVA - will write a script for Overbed Table as requested Assessment & Plan (11/20/2024 11:12 AM EST): [...] LUE. - pt was given appt with station engineer 09/27/24 - ER precautions discussed. Low back [...] monitor - patient advised to follow-up with station engineer Gait instability 12/13/2023 Assessment & Plan (06/14/2025 6:18 PM EDT): - multifactorial - currently using a special walker Assessment & Plan (12/13/2023 3:29 PM EST): [...] (12/13/2023 3:23 PM EST): - Following with [facility] - Distal esophageal stricture and stasis and tertiary contractions shown on Barium swallow study. S/p EGD with dilation 17 mm on 06/28/23. Sims's esophagus, hiatal hernia and gastric antral vascular ectasia (GAVE). - Continue PPI. Hiatal hernia 12/01/2023 Assessment & Plan (12/13/2023 3:17 PM EST): - following with [facility], last seen on 08/29/23 - s/p [...] Plan (01/08/2025 6:47 PM EDT): -Followed by [facility], and recently seen during the hospitalization [...] 5:16 PM BY ANDREW LEDESMA Referred to Receiver Dispatcher CG was given the number to call to schedule appointment Assessment & Plan (11/13/2024 6:28 AM EST): >>ASSESSMENT AND PLAN FOR SENSORINEURAL HEARING LOSS, BILATERAL WRITTEN ON 06/07/2023 4:10 PM BY ANDREW LEDESMA Referred to Receiver Dispatcher CG was given the number to call to schedule appointment >>ASSESSMENT AND PLAN FOR HL (HEARING LOSS) WRITTEN ON 06/07/2023 4:56 PM BY ANDREW LEDESMA Patient has new hearing aids Assessment & Plan (10/29/2022 7:04 AM EST): - previously seen by guide travel and ENT - b/l sensorineural hearing loss - refer to guide travel so that he can get hearing aids History of prostate cancer 10/28/2022 Assessment & Plan (07/06/2024 6:40 AM EDT): -s/p radical prostatectomy in 1999 -last seen by urologist in 2019 -prescribed Red[place] 1000 mcg urethral suppository -pt has not been using frequently -last PSA < 0.04 on 02/03/22 Assessment & Plan (10/30/2022 6:04 AM EST): -s/p radical prostatectomy in 1999 -last seen by urologist in 2018 -prescribed Redwater 1000 mcg urethral suppository -pt has not been using frequently -last PSA < 0.04 on 02/03/22 Dependence on renal dialysis 02/05/2021 Assessment & Plan (12/02/2023 10:22 AM EST): -Continue to follow with Nephrology. -Continue current Nephrology indications of dialysis. -Have CHEMICAL PRODUCTION ENGINEER make contact for advisement on Ensure contraindication. Assessment & Plan (02/01/2023 5:13 PM EDT): -Dialysis days MWF -Continue current Tx plan per outside plant engineer Assessment & Plan (10/30/2022 5:56 AM EST): -Dialysis days MWF -Continue current Tx plan per outside plant engineer End stage renal disease 02/05/2021 Assessment & Plan (06/04/2025 11:26 PM EDT): - Continue hemodialysis(MWF) - Continue to follow with Nephrology Assessment & Plan (02/26/2025 1:23 PM EDT): [...] Ischemic heart disease 04/22/2016 Assessment & Plan (06/04/2025 11:26 PM EDT): - Drip Pumper RENÉ, last seen on 09/27/24 - Optimize risk factor management and secondary prevention Assessment & Plan (01/08/2025 5:31 PM EDT): - Drip Pumper RENÉ, last seen on 09/27/24 - Optimize risk factor management and secondary prevention Assessment & Plan (11/13/2024 6:38 PM EST): - Drip Pumper RENÉ - Optimize risk factor management and secondary prevention - Rescheduled an appointment due to chest pain Assessment & Plan (09/19/2024 4:09 PM EST): [facility] Optimize risk factor management and secondary prevention - Rescheduled an appointment due to chest pain Assessment & Plan (07/06/2024 6:26 AM EDT): - Drip Pumper [facility] - Optimize risk factor management and secondary prevention Assessment & Plan (12/02/2023 10:30 AM EST): - Drip Pumper: SHAWN, last seen XXX - Continue current medication as prescribed. - Last echocardiogram: Assessment & Plan (06/07/2023 4:09 PM EDT): - Drip Pumper: SHAWN, last seen 07/24/22 - Current medications: [...] & Plan (02/01/2023 5:15 PM EDT): - Drip Pumper: SHAWN, last seen 07/24/22 - Current medications: [...] & Plan (10/30/2022 5:46 AM EST): - Drip Pumper: SHAWN, last seen 07/24/22 - Current medications: [...] surgery 2014 Coronary artery disease invo lving iqugmiut coronary artery of iqugmiut heart without angina pectoris 08/18/2015 Essential hypertension 08/18/2015 Assessment & Plan (06/04/2025 11:26 PM EDT): - Goal BP < 130/80 per ACC/AHA guideline. - Elevated BP today, but recently hypotensive - Continue working on life style modifications. - Previously on metoprolol succinate 100 mg which was discontinued by outside plant engineer - Previously on ACEI, but discontinued [...] Continue checking home BP Assessment & Plan (01/08/2025 5:29 PM EDT): - Goal BP < 130/80 per ACC/AHA guideline. - Elevated BP today, but recently hypotensive - Continue working on life style modifications. - Previously on metoprolol succinate 100 mg which was discontinued by outside plant engineer - Previously on ACEI, but discontinued [...] succinate 100 mg which was discontinued by outside plant engineer - Previously on ACEI, but discontinued [...] succinate 100 mg which was discontinued by outside plant engineer - Previously on ACEI, but discontinued [...] 100 mg was discontinued; will confirm with outside plant engineer and pharmacist. - Previously on ACEI, [...] elevated BP for pt today at 142/79 CHEMICAL PRODUCTION ENGINEER states his BP at home is normal [...] hip 05/27/2015 Dyslipidemia 12/03/2014 Assessment & Plan (06/04/2025 11:25 PM EDT): - Last lipid profile: 09/18/24 - Current medication: atorvastatin 80 mg qhs (rosuvastatin was contraindicated due to pt's CKD, now ESRD) - Cotninue high-intensity statin therapy - Check lipid profile with hepatic function panel annually Assessment & Plan (11/20/2024 11:14 AM EST): [...] hepatic function panel annually Hemiparesis affecting left s yamini as late effect of stroke (CMS/HCC) 12/03/2014 Assessment & Plan (06/14/2025 6:18 PM EDT): - Sent DME prescription for Stairlift instillation in home. - Sent DME prescription for motorized wheelchair/ scooter. - Will send a script for overbed table Assessment & Plan (12/02/2023 10:27 AM EST): [...] s/p repair in February 2014 -Followed by [facility] vascular service, last seen by [...] s/p repair in February 2014 -Followed by [facility] vascular service, last seen by [...] s/p repair in February 2014 -Followed by [facility] vascular service, last seen by [...] s/p repair in February 2014 -Followed by [facility] vascular service, last seen by [...] s/p repair in February 2014 -Followed by [facility] vascular service, last seen by [...] s/p repair in February 2014 -Followed by [facility] vascular service, last seen by [...] s/p repair in February 2014 -Followed by [facility] vascular service, last seen by [...] s/p repair in February 2014 -Followed by [facility] vascular service, last seen by [...] mellitus, type 2 02/05/2014 Assessment & Plan (06/04/2025 11:28 PM EDT): - HgbA1C is 6.0% on 06/04/25, increase from 5.7% on 12/14/24, Goal < 8% due to his age - No longer on medication. Trying to control with diet currently. Previously on metformin and glipizide. - Consider GLP-1 agonist or SGLT-2 inhibitor if A1C > 8% - Last eye exam: [facility] - Last comprehensive foot exam: 06/07/23, high-risk - Last microalbumin test: not indicated since pt has end stage renal dx. worsening proteinuria / nephropathy - Last lipid profile: 09/18/24 - ASA - discontinued - IZ - up to date Assessment & Plan (02/26/2025 1:23 PM EDT): - HgbA1C is 5.7% on 12/14/24, Goal < 8% due to his age - No longer on medication. Trying to control with diet currently. Previously on metformin and glipizide. - Consider GLP-1 agonist or SGLT-2 inhibitor if A1C > 8% - Last eye exam: [facility] - Last comprehensive foot [...] A1C > 8% - Last eye exam: [facility] - Last comprehensive foot [...] A1C > 8% - Last eye exam: [facility] - Last comprehensive foot [...] DIALYSIS, WITHOUT LONG-TERM CURRENT USE OF INSULIN ([facility]) WRITTEN ON 06/07/2023 4:10 PM BY [...] DIALYSIS, WITHOUT LONG-TERM CURRENT USE OF INSULIN ([facility]) WRITTEN ON 09/23/2023 7:36 PM BY [...] DIALYSIS, WITHOUT LONG-TERM CURRENT USE OF INSULIN ([facility]) WRITTEN ON 06/26/2024 10:54 AM BY [...] A1C > 8% - Last eye exam: [facility] - Last comprehensive foot [...] AND PLAN FOR DIABETES MELLITUS, TYPE 2 ([facility]) WRITTEN ON 02/01/2023 5:12 PM BY [...] DIALYSIS, WITHOUT LONG-TERM CURRENT USE OF INSULIN ([facility]) WRITTEN ON 2023 11:35 AM BY [...] of thoracic aorta 07/12/2013 Assessment & Plan (06/04/2025 11:25 PM EDT): -Pt had aneurysm of ascending aorta, aortic arch, and descending aorta - s/p repair in February 2014 -Followed by [facility] vascular service, last seen by [...] 6.3 cm. -Continue risk factor management. -Called [facility] vascular clinic today, and requested a follow up appointment. Faxed CTA report and most recent discharge summary to [facility] [phone]. Assessment & Plan (02/26/2025 1:23 PM EDT): -Pt had aneurysm of ascending aorta, aortic arch, and descending aorta - s/p repair in February 2014 -Followed by [facility] vascular service, last seen by [...] 6.3 cm. -Continue risk factor management. -Called [facility] vascular clinic today, and requested a follow up appointment. Faxed CTA report and most recent discharge summary to [facility] [phone]. Assessment & Plan (01/08/2025 6:35 PM EDT): -Pt had aneurysm of ascending aorta, aortic arch, and descending aorta - s/p repair in February 2014 -Followed by [facility] vascular service, last seen by [...] 6.3 cm. -Continue risk factor management. -Called [facility] vascular clinic today, and requested a follow up appointment. Faxed CTA report and most recent discharge summary to [facility] [phone]. Assessment & Plan (09/19/2024 4:12 PM EST): -Pt had aneurysm of ascending aorta, aortic arch, and descending aorta - s/p repair in February 2014 -Followed by [facility] vascular service, last seen by [...] s/p repair in February 2014 -Followed by [facility] vascular service, last seen by [...] s/p repair in February 2014 -Followed by [facility] vascular service, last seen by [...] s/p repair in February 2014 -Followed by [facility] vascular service, last seen by [...] s/p repair in February 2014 -Followed by [facility] vascular service, last seen by [...] s/p repair in February 2014 -Followed by [facility] vascular service, last seen by [...] s/p repair in February 2014 -Followed by [facility] vascular service, last seen by [...] hemorrhagic stroke with residual khoi paresis 07/04/2012 Assessment & Plan (06/14/2025 6:17 PM EDT): - patient is dependent in ADLs and IADLs - will write a script for overbed table as requested Diverticular disease 07/04/2012 Atherosclerosis of coronary artery [...] Encounters Date Type Department Care Team Description 06/26/2025 Refill [facility] [address] [place] [address] My Hawkins ANP Type 2 diabetes mellitus with chronic kidney disease on chronic dialysis, without long-term current use of insulin ([facility]) 06/17/2025 Telephone [facility] [address] [place], [place] [id number] Adriane Higuera MD 06/05/2025 Orders Only [facility] [address] [place] [address] Adriane Higuera MD Chronic right shoulder pain (Primary Dx) 06/05/2025 Results Follow-Up [facility] [address] [place] [address] Adriane Higuera MD XR Shoulder 2+ Views Right 06/04/2025 3:00 PM EDT Office Visit [facility] [address] [place] [phone] Adriane Higuera MD Essential hypertension (Primary Dx); Type 2 diabetes mellitus with chronic kidney disease on chronic dialysis, without long-term current use of insulin (CMS/[facility]); End stage renal disease (CMS/HCC); Dyslipidemia; Ischemic heart disease; Aneurysm of descending thoracic 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 ([facility]/HCC); History of cerebrovascular accident; 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 (CMS/HCC); Chronic right shoulder pain; Lesion of testis; Sensorineural hearing loss, bilateral; Acquired hypothyroidism; Protein-calorie malnutrition, unspecified severity (CMS/HCC); Weight loss; GAVE (gastric antral vascular ectasia); Duodenal mass; History of hemorrhagic stroke with residual hemiparesis ([facility]/HCC); Gait instability 06/04/2025 Travel 05/30/[address] [address] Adriane Higuera MD Nurse Triage 05/21/[address] [address] Adriane Higuera MD No Show 05/20/[address] [address] Adriane Higuera MD chartprep 05/13/2025 Patient Outreach [address] [address] Adriane Higuera MD Pre-visit Planning ([facility] screening was completed on 02/26/2025) 05/08/[address] [address] Adriane Higuera MD 05/03/2025 Orders Only [address] [address] Adriane Higuera MD 05/02/[address] [phone] Adriane Higuera MD Med Refill from Last 3 Months Immunizations Immunization Administration [...] housing situation today? I have nithya zhang 02/26/[address] you li [...] 02/26/2025 3:27 PM EDT Plan of Treatment Upcoming Encounters Date Type Department Care Team (Late st Contact Info) Description 09/03/2025 1:30 PM EST Office Visit [facility] [address] [place] [address] Adriane Higuera MD [address] [place], [place] [phone] Health Maintenance Due Date Last Done Comments [...] Name Priority Date/Time Associated Diagnosis Comments XR SHOULDER 2+ VIEWS RIGHT Routine 06/04/2025 3:14 PM EDT Chronic right shoulder pain POCT GLYCOSYLATED HEMOGLOBIN (HGB A1C) Routine 06/04/2025 3:08 PM EDT Type 2 diabetes mellitus with chronic kidney disease on chronic dialysis, without long-term current use of insulin ([facility]) POCT GLUCOSE Routine 06/04/2025 3:08 PM EDT Type 2 diabetes mellitus with chronic kidney disease on chronic dialysis, without long-term current use of insulin ([facility]) HERPES CULTURE WITH REFLEX TYPING Routine 06/04/2025 1:40 PM EDT Lesion of testis LIPID PANEL WITH REFLEX TO DIRECT LDL Routine 09/18/2024 3:43 PM EST Type 2 diabetes mellitus with chronic kidney disease on chronic dialysis, without long-term current use of insulin ([facility]) Dyslipidemia DIABETES EYE EXAM Routine 03/27/2024 from Last 3 Months or Most Recently Relevant to Health Maintenance Results * XR Shoulder 2+ Views Right (06/04/2025 3:14 PM EDT) Anatomical Region Laterality Modality Upper Extremities, Shoulder Right Radi ographic Imaging 06/04/2025 3:14 PM EDT Narrative 06/04/2025 4:39 PM EDT [facility] [address] [place] [address] XRay Report Signed Patient: Bi Forrest MR# : [id number] : 1940 Acct:[id number] Age/Sex: 85 / M ADM Date: 06/04/25 Loc: .HHX Attending Dr: Adriane Higuera MD Ordering Physician: Adriane Higuera MD Date of Service: 06/04/25 Procedure(s): XR shoulder RT min 2V Accession Number(s): [id number] cc: Adriane Higuera MD EXAMINATION: XR SHOULDER, RIGHT CLINICAL INFORMATION: right shoulder pain. HX CVA. Left side weakness. COMPARISON: None available. TECHNIQUE: AP external rotation, Grashey, scapular Y, and axillary views of the right shoulder. FINDINGS: Normal bone mineralization. No fracture, dislocation, or suspicious bone lesion. The glenohumeral joint demonstrates mild degenerative arthritis. There is superior subluxation of the humeral head upon the glenoid. The AC joint demonstrates mild to moderate spurring. There is a type II acromion. No undersurface spurring. There is remodeling of the undersurface with complete loss of the subacromial space indicating rotator cuff tear. Soft tissues appear normal aside from vascular calcifications. There has been a prior median sternotomy. A partially imaged vascular stent is present in the mediastinum. XR/XR shoulder RT min 2V IMPRESSION: 1. No acute findings of the right shoulder. 2. 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 3. Complete loss of the subacromial space with mild subacromial remodeling, consistent with full-thickness rotator cuff tearing. Electronically signed by: Mehrdad Solorzano MD 06/04/2025 04:36 PM EDT Dictated By: Mehrdad Solorzano MD Signed By: <Electronically signed by Mehrdad Solorzano MD in OV> 06/04/25 1636 DD/ 1514 TD/TT: 06/04/25 1600 Placement Director: Procedure Note Donotuseinterpreter, Image - 06/04/2025 [facility] [address] [place] [address] XRay Report Signed Patient: Jori Forrest# : [id number] : 1940Acct:[id number] Age/Sex: 85 / MADM Date: 06/04/25 Loc: .HHCX Attending Dr: Adriane Higuera MD Ordering Physician: Adriane Higuera MD Date of Service: 06/04/25 Procedure(s): XR shoulder RT min 2V Accession Number(s): [id number] cc: Adriane Higuera MD EXAMINATION: XR SHOULDER, RIGHT CLINICAL INFORMATION: right shoulder pain. HX CVA. Left side weakness. COMPARISON: None available. TECHNIQUE: AP external rotation, Grashey, scapular Y, and axillary views of the right shoulder. FINDINGS: Normal bone mineralization. No fracture, dislocation, or suspicious bone lesion. The glenohumeral joint demonstrates mild degenerative arthritis. There is superior subluxation of the humeral head upon the glenoid. The AC joint demonstrates mild to moderate spurring. There is a type II acromion. No undersurface spurring. There is remodeling of the undersurface with complete loss of the subacromial space indicating rotator cuff tear. Soft tissues appear normal aside from vascular calcifications. There has been a prior median sternotomy. A partially imaged vascular stent is present in the mediastinum. XR/XR shoulder RT min 2V IMPRESSION: 1. No acute findings of the right shoulder. 2. 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 3. Complete loss of the subacromial space with mild subacromial remodeling, consistent with full-thickness rotator cuff tearing. Electronically signed by: Mehrdad Solorzano MD 06/04/2025 04:36 PM EDT Dictated By: Mehrdad Solorzano MD Signed By: <Electronically signed by Mehrdad Solorzano MD in OV> 06/04/25 1636 DD/ 1514 TD/TT: 06/04/25 1600 Placement Director: Adriane Higuera MD IMG XR PROCEDURES Final Result * (ABNORMAL) POCT glycosylated hemoglobin (Hgb A1c) (06/04/2025 3:08 PM EDT) Hemoglobin A1C 6.0(A) 4.0 - 5.7 % QC Media Lot # [id number] Lot# Expiration Date , Blood Capillary blood specimen / Unknown 06/04/2025 3:08 PM EDT Adriane Higuera MD POINT OF CARE TEST ENTER/EDIT OR DERABLES Final Result * POCT glucose manually resulted (06/04/2025 3:08 PM EDT) Glucose Blood, POC 111 60 - 200 mg/dL QC Media Lot # [id number] Lot# Expiration Date [id number] Blood Capillary blood specimen / Unknown 06/04/2025 3:08 PM EDT Adriane Higuera MD POINT OF CARE TEST ENTER/EDIT OR DERABLES Final Result * Herpes Simplex Virus Culture with Reflex Typing (06/04/2025 1:40 PM EDT) HSV Culture/Type SEE NOTE [facility] Comment:HERPES SIMPLEX VIRUS CULTURE W/RFL TO TYPING Micro Number: [id number] Test Status: Final Specimen Source: Not given Specimen Quality: Adequate HSV Culture: Not IsolatedTHIS TEST WAS PERFORMED AT:[address] [id number] MERATI,MD Swab Topography unknown / Unknown 06/04/2025 1:40 PM EDT 06/04/2025 6:24 PM EDT Adriane Higuera MD LAB MICROBIOLOGY - GENERAL ORDER AMANDA Final Result Performing Organization Address [facility] Co de Phone Number [facility] [address] [place] [phone] * (ABNORMAL) Lipid Panel with Reflex to Direct LDL (09/18/2024 3:43 PM EST) Triglycerides 103 <150 mg/dL [facility] Comment:Desirable Triglyceri de: less than 150 mg/dLBorderline High Triglyceride 150-199 mg/dLHigh Triglyceride: 200-499 mg/dLVery High Triglyceride: greater than or equal to 5OO mg/dL Cholesterol 157 <200 mg/dL [facility] Comment:Desirable Cholestero l: less than 200 mg/dLBorderline High Cholesterol: 200-239 mg/dLHigh Cholesterol: greater than 239 mg/dL LDL Cholesterol Calculated 97 <100 mg/dL [facility] Comment:Desirable LDL: less than 100 mg/dLNear Optimal/Above Optimal LDL: 110- 129 mg/dLBorderline High LDL: 130-159 mg/dLHigh LDL: 160-189 mg/dLVery High LDL: greater than or equal to 190 mg/dL HDL Cholesterol 40(L) >40 mg/dL [facility] Comment:Desirable HDL: great er than 40 mg/dL Note: This HDL assay may give artificially low results in patients with liver disease. Blood 09/18/2024 3:43 PM EST 09/18/2024 4:00 PM EST Adriane Higuera MD LAB BLOOD ORDERABLES Final Resul t Performing Organization Address [facility]/ZIP Co de Phone Number [facility] [address] [place] [phone] * Hm Diabetes Eye Exam (03/27/2024) Eye Exam Normal Normal 03/27/2024 us Historical Provider HEALTH MAINTENANCE Final Result from Last 3 Months or Most Recently Relevant to Health Maintenance Insurance [facility] [employer] OPTIONS (HMO D-SNP) MYA PALACIOS [id number] * Guarantor: Bi Forrest [employer] Account Type Relation to Patient Date of Phone Billing Address Personal/Family Self [address] [place] 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
== END 2025-07-30 12:31 | disposition home or self-care (01) ==
LOC: HO.HUSH 11:33
PROVIDERS: Visit Provider Urology
DX: N50.3 Cyst of epididymis (principal)
CPT/HCPCS: 99203

== ENCOUNTER → 2025-07-30 11:33 | Outpatient (BNVA) | payer OTHER, SELFPAY | PROVIDERS: Visit Provider Urology | DX: R06.2 Wheezing (principal); R05.9 Cough, unspecified; J98.4 Other disorders of lung | CPT/HCPCS: 99212 ==

== ENCOUNTER 2025-07-30 12:48 | Outpatient (AMB) | payer OTHER, SELFPAY ==
[2025-07-30 13:37] VITALS: BP 130/64; PULSE 77; O2SAT 97
--- NOTE | 2025-07-30 13:37 | MHC.OFFVIS ---
Vital Signs 07/30/25 13:37 Height 5 ft 9 in BP 130/64 Blood Pressure Location Lt brachial Position Sitting Pulse 77 Pulse Source Pulse Oximeter Pulse Oximetry (%) 97 Oxygen Delivery Method Room Air Intake Visit Reasons: Wheezing/Cough Intake Note: pt is here for follow up and states he is feeling good. School Business Manager Required: Yes School Business Manager Services: School Business Manager Present School Business Manager Name: Salome SCHNEIDER Cover Mat Machine Operator: Cover Mat Machine Operator offered & declined Allergies MEL Inhibitors Adverse Reaction (Mild, Verified 07/30/25 13:55) Unknown Medication List - Last Reconciled 07/30/25 by Alba Montesinos MD allopurinol 100 mg PO DAILY atorvastatin 80 mg PO BEDTIME cholecalciferol (vitamin D3) (Vitamin D3) 25 mcg PO DAILY cyanocobalamin (vitamin B-12) 1,000 mcg PO DAILY ferrous sulfate 325 mg PO DAILY folic acid 1 mg PO DAILY guaifenesin (Chest Congestion Relief) 400 mg PO Q6H PRN levothyroxine 50 mcg PO DAILY@0600 omeprazole 40 mg PO BID@0630,1630 sucralfate (Carafate) 1 g PO QIDACHS 14 days HPI HPI Wheezing/Cough: Details: This 85 years old Chinese-speaking, very pleasant gentleman is here after 6 months for routine follow-up. Basically he does not have any significant lung disease except that spirometry showed mild restrictive pattern. He does have intermittent cough with chest congestion and he usually gets relief by taking guaifenesin tablets q.6 hours PRN. He does not use any. Bronchodilator inhalers He does not walk except short distant with the walker, and when he goes outdoors he uses wheelchair. So he does not experience any dyspnea on exertion. [facility] Medical History Chronic restrictive lung disease ESRD (end stage renal disease) Anemia CKD (chronic kidney disease) stage 5, GFR less than 15 ml/min MSSA bacteremia Dialysis patient COVID-19 vaccine administered Renal failure COPD (chronic obstructive pulmonary disease) Thyroid disease GERD (gastroesophageal reflux disease) Elevated cholesterol PVD (peripheral vascular disease) Prostate CA HTN (hypertension) Heart attack Surgical History Hx of endoscopy Hx of cataract surgery Hx of cystoscopy History of incision and drainage H/O colonoscopy Hx of aortic valve replacement Hx of CABG Social History Household Members: Children Household Members Other:: son Housing: Apartment Are you a primary director of primary care to a significant other at home: No Do you presently have visiting nurse or other home services: No Alcohol intake: never Comment: Surgeon informed that all counts were correct Patient Tobacco Use Status: Former Tobacco user e-Cigarette/Vaping Use: Never Used Second Hand Smoke Exposure: No Advance Directives Date on File: 12/05/24 service: No Current occupational status: disabled Review of Systems Const All systems reviewed & are unremarkable except as noted in HPI and below Reports weakness (LEFT HEMIPARESIS, CHRONIC) Eyes Reports no additional complaints ENT Reports no additional complaints Card Denies chest pain, Denies irregular heart rhythm, Denies leg edema and Denies orthopnea Resp Reports as per HPI GI Reports heartburn (CHRONIC GERD SYMPTOMS) Reports no additional complaints Musc Reports abnormal gait (NON AMBULATORY) and Reports muscle weakness (GENERALIZED NONSPECIFIC) Skin/Breast Reports system reviewed and no additional complaints, except as documented Neuro Reports abnormal gait (NON AMBULATORY) and Reports weakness (LEFT HEMIPARESIS, CHRONIC) Psych Reports no additional complaints Endo Reports other (HYPOTHYROIDISM CONTROL) Andrew/Lymph Details: 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 Physical Exam Vital Signs: Last Vital Signs Pulse 77 07/30/25 13:37 BP 130/64 07/30/25 13:37 Pulse Ox 97 07/30/25 13:37 Oxygen Delivery Method Room Air 07/30/25 13:37 Const General: comfortable, no acute distress, alert and awake Orientation/consciousness: patient oriented x3 HEENT Head: Yes normal to inspection General nose exam: No nasal polyps present and No nasal discharge present Face and sinus: Yes sinuses nontender Mouth: oropharynx normal Throat: Yes posterior oropharynx normal Eyes General: appearance normal, both eyes and all related structures Neck Neck: Yes normal visual inspection, Yes no lymphadenopathy, Yes trachea midline and Yes no JVD Thyroid: Thyroid normal Chest Chest palpation & inspection: abnormal inspection of the chest (MID STERNAL SCAR FROM PREVIOUS CABG), normal palpation of entire chest wall and no tenderness Resp Effort & Inspection: normal respiratory effort and symmetric chest movement Auscultation: clear to auscultation bilaterally Cardio Other: HAS MID STERNAL SURGICAL SCAR FROM PREVIOUS CABG SURGERY Palpation: normal PMI Rate: regular rate Rhythm: regular rhythm Heart sounds: no gallops and no murmurs GI Palpation (GI): Soft to palpation, nontender, No hepatosplenomegaly present and no masses Auscultation: normal bowel sounds Back/Spine/Pelvis Thoracic/Lumbar Spine: thoracic and lumbar spine normal to inspection Skin General skin exam: no rashes or lesions noted Neuro General: patient oriented x3, No gait normal (HAS HAD LEFT HEMIPARESIS) and No no focal motor deficits ( WEAKNESS OF THE LEFT LEG AND OR) Cranial nerves: Yes CN's II-XII intact bilaterally Extrem General: Yes normal to inspection, Yes no clubbing, cyanosis or edema and Yes no calf tenderness Psych Appearance: grossly normal and well kempt Speech and movement: Normal speech and movement present Results Reviewed Results Reviewed: On his last visit, SPIROMETRY PERFORMED IN THE OFFICE had shown a pattern of mild restrictive lung disease. No obstructive airway disorder. Assessment & Plan Assessment & Plan (1) Chronic restrictive lung disease: Comment: FVC 59 % FLOW VOLUMES NORMAL, IT SEEMS THAT THIS GENTLEMAN HAS CHRONIC MODERATE DEGREE OF RESTRICTIVE PULMONARY DISORDER WHICH IS PROBABLY DUE TO HIS PREVIOUS OPEN HEART SURGERY AND MID STERNAL SCAR. SPIROMETRY FINDINGS DID NOT SUGGEST ANY OBSTRUCTIVE AIRWAY DISORDER. Code(s): J98.4 - Other disorders of lung Category: Medical Plan: DOES NOT NEED TO USE ANY BRONCHODILATORS. ANY FEELING OF CHEST CONGESTION OR COUGH HE CAN USE GUAIFENESIN TABLET 400 MG Q 6 HOURS P.R.N.. Plan DOES NOT NEED TO COME TO SEE ME REGULARLY. SHOULD CONTINUE TO FOLLOW-UP WITH HIS PRIMARY CARE PHYSICIAN, AND IF NEEDED THEN I WILL BE GLAD TO SEE HIM AGAIN. Coding Level of Care Code Est Pt Level 3 (56304) Diagnoses Chronic restrictive lung disease J98.4
--- OUTSIDE RECORDS SUMMARY | 2025-07-30 16:22 | XMS_ITS | Data Portability ---
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 Reviewed precautions. [email or web address] Not available 06/14/2024 22:18:00 Plan of Treatment Reminders Order Date Submit Date Provider Last Modified By Organization Details Last Modified Time Details Appointments None recorded. Lab rapid flu (A+B) 2022 023 [employer] [facility], [address] [place] [address], [id number] 3 15:58:19 rapid strep group A, throat 2022 023 [employer] [facility], [address] [place] [address], [phone] 3 15:58:28 unlisted lab - covid-19 (novel coronaviru s) PCR 2022 023 [place] [facility] (Centralized Electronic Ordering - All Locations), Patient Can Go To The Location Of Their Choice, [id number] 08:07:12 Referral None recorded. Procedures None recorded. Surgeries None recorded. Imaging None recorded. Medication Orders Ciprodex 0.3 %-0.1 % ear drops,susp ension 2022 023 [facility], [address] [place] [address], [id number], 11:10:18 Patient TargetsNo targets recorded. Patient InstructionsNo [...] Go To The Location Of Their Choice, [id number] 07/28/2023 08:07:12 07/26/2007/28/2023 COVID -19 (NOVE L [...] ng. Resul t repor misti to the [facility]. To preve nt error s in diagn [...] Autho rizat ion (EUA) for use by debbie alvarez atori es. Testi ng perfo rmed by real time PCR [facility] 6800 SARS- CoV-2 test. Not Available [facility] (Centralized Electronic Ordering - All Locations) Patient Can Go To The Location Of Their Choice, [id number] 07/28/2023 08:07:12 07/26/2007/26/2023 rapid strep group A, throa t Strep negati ve Not Available Main - [facility] [address] [place] [address], [phone] 07/26/2023 15:58:06 07/26/2007/26/2023 rapid flu (A+B) Flu negati ve Not Available Main - [facility] ed [address] [place] [address], [phone] 07/26/2023 15:57:49 Result Notes None recorded. Medical [...] Available Not Available Vitals Date Recorded Body temperature Body weight Oxygen saturation Oxygen saturation in Arterial blood by Pulse oximetry Respiratory rate Body height Heart rate Systolic And Diastolic Provider Name and Address Organization Details Last Updated DateTime 4 98.5 [degF] 04207.5 2 g 97 % 97 % 16 /min 180.34 cm 75 /min 149/70 mm[Hg] Not Available [employer] 4 21:17:27 Date Recorded Body weight Heart rate Respiratory rate Oxygen saturation Oxygen saturation in Arterial blood by Pulse oximetry Body temperature Body height Systolic And Diastolic Provider Name and Address Organization Details Last Updated DateTime 3 44925.5 6 g 52 /min 18 /min 95 % 95 % 98.4 [degF] 175.26 cm 116/60 mm[Hg] Not Available [employer] 3 14:39:51 Date Recorded Body weight Oxygen saturation Oxygen saturation in Arterial blood by Pulse oximetry Respiratory rate Heart rate Body temperature Systolic And Diastolic Provider Name and Address Organization Details Last Updated DateTime 4 94538.5 6 g 95 % 95 % 16 /min 80 /min 98.2 [degF] 152/84 mm[Hg] Not Available [address] [employer] 4 16:18:35 Social History None recorded. Functional Status None recorded. Mental Status None recorded. Family History Nothing Reported. Medical History No medical history recorded. Past Encounters Encounter ID Performer Location Encounter Start Date Encounter Closed Date Diagnosis/Indication Diagnosis SNOMED-CT Code Diagnosis ICD10 Code Diagnosis IMO Codes Diagnosis Note [id number] MALINI CASTRO MD Main - [facility] [address] [place] [phone] 07/26/2023 14:39:49 07/27/2023 22:26:29 Acute otitis externa 34982092 H60.509 Evaluation in the field was performed by my tier over colleague, as noted above, I provided real-time [...] other concerns . Upper resp iratory infection 87712627 J06.9 [id number] FAMILIA GREEN MD Main - [facility] [address] [place] [phone] 06/14/2024 21:17:12 06/18/2024 22:00:27 Low back pain 726299166 M54.50 [id number] Roz Leon MD Main - [facility] [address] [place] [phone] 08/03/2024 16:18:27 08/06/2024 21:12:45 Onychomycosis of toenails 010693265 B35.1 84 year old male with chronic [...] assessment and plan as documented by the tier over. I provided real-time medical direction for this [...] Recorded Advance Directives Directive None Recorded Payers Insurance Date Sequence Insurance Name Policy Number Policy Johnson Covered Member ID Johnson Member ID Guarantor Name 08/14/2024 1 [facility] - DOS ON OR AFTER 2023 - DUAL ELIGIBLE - [employer]FW[employer] OPTIONS AND [employer] (MEDICARE REPLACEMENT/AD VANTAGE - HMO) Bi pino [id number] Bi [employer] Notes Date Note Type Note Provider Name and Address Organization Details Recorded Time 07/26/2023 text/html ROS as noted in the HPI HPI: Patient with history or bilateral hearing [...] .................... .................... .................... .................... .................... .................... . Necktie Turner Note From Gena Merlos: Sent to a [...] flu test: neg, rapid strep test: neg; [facility] [place] to be [facility]. [facility] [place] drops [place] pt's pharmacy. Red flags discussed. Pt has no further questions. [facility] [place] Orders: unlisted lab - covid-19 (novel coronavirus) PCR: Performed .................... .................... .................... .................... .................... .................... .................... . Disposition: Fulfilled MALINI CASTRO MD [address] [facility],[address], [place], [phone], [employer] 07/26/2023 16:01:32 06/14/2024 text/html CRC Nurse Triage Notes (Kerri Jason): Reason For Request: Pt's son Edbryson reporting severe back pain near lower hip>screams anytime he moves>experienced a fall 2 weeks and went to [facility] for 12 days for infection inside his body Chief Complaints: Pain PMH: Diabetes, Hypertension, Heart Disease, Other Other Allergies: Allediana Comments: 84 year old male with PMH: DM, HTN, heart disease. dialysis M/W/F, Right chronic shoulder painAllergies: Shoaib, and other one unsure, pls verify c/o [...] is not going away per Sonverified info/response timeHpsimon GREEN MD [address] [facility],[address], [place], [phone], [employer] 06/14/2024 22:18:06 08/03/2024 text/html HPI: Dialysis dependent, [...] .................... .................... .................... .................... .................... .................... . Necktie Turner Note From Vik Lynn: Pt co itchy 3rd toe. Pt son was concerned for infection. Pt denies pain to toe, redness, swelling, injury, insect bits, sob, or CP. Baseline vitals assessed,WNL, Afebrile. Toe assessment, slight discoloration, and dryness/ashy. Neg redness, hot to touchor pain on palpation. Pedal pulses palpable, does not appear to have infection. [facility] [place] Edward contacted and advised hydrocortisone cream and follow up with take away man. Education on signs indicating the ER. .................... .................... .................... .................... .................... .................... .................... . Disposition: Fulfilled Roz Leon MD [address] [facility],[address], [place], [phone], [facility] [employer], [facility] 08/03/2024 16:46:40
== END 2025-07-30 13:57 | disposition home or self-care (01) ==
LOC: HO.HPS 12:49
PROVIDERS: PCP Family Medicine; Visit Provider Internal Medicine
DX: J98.4 Other disorders of lung (principal)
CPT/HCPCS: 99213